=== PATIENT | male | born 1975 | race Asian ===

== ENCOUNTER 2016-08-28 13:15 | Inpatient (IN) | payer OTHER ==
[~2016-08-28] VITALS: Ht 180.3 cm; Wt 115.8 kg
[2016-08-28] VITALS (7 sets, daily range): BP systolic 89–105; BP diastolic 33–77; PULSE 86–112; TEMP 36.9–37.4; O2SAT 91–93; Ht 180.3 cm; Wt 115.8 kg
[~2016-08-28 13:15] MED LIST: BTP80 PO; FRS/40 PO; LSN5 PO; MAGN400T6 PO; POTA10CA28 PO; SPIR25TA PO; TPRSR25 PO; XRL20 PO
[2016-08-28] MEDS ORDERED: METOPROLOL TARTRATE 1 MG/ML VIAL IV STA ×4 (13:41→16:07)
--- NOTE | 2016-08-28 13:44 | EMERGENCY ROOM VISIT NOTE ---
History Report prepared by Andrea: Pura Hameed Under the Supervision of: Dr. Jackie Potter M.D. First contact with patient: 13:36 Chief Complaint: RESPIRATORY PROBLEMS Stated Complaint: TROUBLE BREATHING, CHEST PAIN History of Present Illness The patient is a 41 year old male who presents to the Emergency Room with complaints of constant shortness of breath beginning this morning. The patient states that he has been experiencing trouble breathing and a cough with sputum. He states that it is very hard to catch his breath. The patient is also experiencing chest discomfort. He notes a headache in his rastafari areas and states that this has occurred before when he had heart troubles. The patient has a history of atrial fibrillation and CHF. He notes that his EF is between 20 -30. The patient does not wear oxygen at home. He is followed by cardiology for his ongoing cardiac issues. The patient states that he took all his medications today at noon. He denies kidney failure history, diabetes, fever, or recent head injury. Source of History: patient Onset: this morning Position: other (global) Quality: other (shortness of breath) Timing: constant Associated Symptoms: + chest pain, + cough, + headache, No fevers Review of Systems See HPI for pertinent positives & negatives. A total of 10 systems reviewed and were otherwise negative. Past Medical & Surgical Medical Problems: (1) Acute viral myocarditis (2) Atrial fibrillation (3) Atrial fibrillation with RVR (4) Cardiomegaly (5) CHF (congestive heart failure) (6) Psoriasis Surgical Problems: (1) S/P ACL repair Family History Heart disease Social History Smoking Status: Never Smoker Alcohol Use: occasionally Drug Use: none Housing Status: lives with family Occupation Status: disabled Current/Historical Medications Scheduled Allopurinol (Zyloprim), 100 MG PO DAILY Folic Acid (Folvite), 1 MG PO DAILY Furosemide (Lasix), 40 MG PO DAILY Lisinopril (Lisinopril), 5 MG PO QAM Magnesium Oxide (Mag-Ox), 400 MG PO DAILY Methotrexate (Methotrexate), 1 DOSE PO WK Metoprolol Succinate (Metoprolol Succinate ER), 12.5 MG PO QAM Potassium Chloride (Micro-K Ext Rel), 10 MEQ PO BID Rivaroxaban (Xarelto), 20 MG PO DAILY Sotalol HCl (Sotalol HCl), 120 MG PO [id number] Spironolactone (Aldactone), 25 MG PO DAILY Allergies Coded Allergies: Penicillins (Verified Allergy, Unknown, 08/28/16) Physical Exam Vital Signs Date Time Temp Pulse Resp B/P Pulse Ox O2 Delivery O2 Flow Rate FiO2 08/28/16 16:20 108 101/79 08/28/16 15:59 108 28 101/79 91 Nasal Cannula 2.0 08/28/16 15:54 48 23 92 08/28/16 15:50 101/66 08/28/16 15:49 138 23 91 Nasal Cannula 2.0 08/28/16 15:44 190 23 91 08/28/16 15:39 125 21 59/41 90 08/28/16 15:35 119 100/85 08/28/16 15:35 100/85 08/28/16 15:34 206 26 92 08/28/16 15:29 104 28 101/77 91 08/28/16 15:26 132 115/80 08/28/16 15:25 115/80 08/28/16 15:24 193 29 92 08/28/16 15:24 130 25 115/80 92 Nasal Cannula 2.0 08/28/16 15:20 110/85 08/28/16 15:19 86 28 92 08/28/16 15:14 133 24 08/28/16 15:10 93 Nasal Cannula 2.0 08/28/16 15:10 136/81 08/28/16 15:09 93 Nasal Cannula 2.0 08/28/16 15:09 54 29 89 08/28/16 15:04 141 22 08/28/16 14:59 85 22 115/86 93 Nasal Cannula 2.0 08/28/16 14:54 170 27 91 08/28/16 14:49 69 31 91 08/28/16 14:48 104/67 08/28/16 14:44 73 17 92 08/28/16 14:39 66 30 109/91 89 08/28/16 14:34 105 18 91 08/28/16 14:29 111/83 08/28/16 14:27 128 22 08/28/16 14:22 128 105/78 94 Nasal Cannula 2.0 08/28/16 14:22 138 133/74 08/28/16 14:20 130 26 90 08/28/16 14:15 75 34 91 08/28/16 14:10 75 15 91 08/28/16 14:05 140 18 08/28/16 14:00 140 26 08/28/16 13:55 200 24 93 08/28/16 13:50 76 33 90 08/28/16 13:45 93 22 89 08/28/16 13:43 138 08/28/16 13:17 37.1 122 19 133/74 90 Room Air Physical Exam Vital signs reviewed. General: Chronically ill appearing, obese, in no significant distress. HEENT: No scleral icterus, PERRLA, neck supple. Atraumatic. Cardiovascular: Rapid irregular rate and rhythm, no extra sounds. Pulmonary: Crackles bilaterally. Increased WOB Abdomen: Soft, nontender, nondistended, positive bowel sounds. Musculoskeletal: Atraumatic, no peripheral edema. Neurologic: Patient awake alert and oriented x 3, full strength in all 4 extremities. Cranial nerves 2 through 12 grossly intact. Skin: Dusky lips. Patchy areas of scaling consistent with psoriasis to back, upper chest, bilateral arms. No significant edema. Medical Decision & Procedures ER Provider Diagnostic Interpretation: X-ray results as stated below per interpretation by me and the radiologist: CHEST ONE VIEW PORTABLE CLINICAL HISTORY: CHF dyspnea COMPARISON STUDY: 05/20/2016 FINDINGS: Cardiomegaly. Unipolar implantable cardiac pacemaker/fibrillator. Components of early congestive failure. IMPRESSION: Developing congestive heart failure Electronically signed by: Kory Escobedo M.D. 08/28/2016 2:05 PM Dictated Date/Time: 08/28/2016 2:05 PM Laboratory Results 08/28/16 13:38 Red Blood Count 4.78, Mean Corpuscular Volume 86.6, Mean Corpuscular Hemoglobin 29.9, Mean Corpuscular Hemoglobin Concent 34.5, Mean Platelet Volume 9.9, Neutrophils (%) (Auto) 81.2, Lymphocytes (%) (Auto) 10.6, Monocytes (%) (Auto) 7.2, Eosinophils (%) (Auto) 0.4, Basophils (%) (Auto) 0.2, Neutrophils # (Auto) 13.23, Lymphocytes # (Auto) 1.73, Monocytes # (Auto) 1.18, Eosinophils # (Auto) 0.07, Basophils # (Auto) 0.03 08/28/16 13:38 Test 08/28/16 13:38 08/28/16 13:45 White Blood Count 16.30 K/uL (4.8-10.8) Red Blood Count 4.78 M/uL (4.7-6.1) Hemoglobin 14.3 g/dL (14.0-18.0) Hematocrit 41.4 % (42-52) Mean Corpuscular Volume 86.6 fL (80-100) Mean Corpuscular Hemoglobin 29.9 pg (25-34) Mean Corpuscular Hemoglobin Concent 34.5 g/dl (32-36) Platelet Count 273 K/uL (130-400) Mean Platelet Volume 9.9 fL (7.4-10.4) Neutrophils (%) (Auto) 81.2 % Lymphocytes (%) (Auto) 10.6 % Monocytes (%) (Auto) 7.2 % Eosinophils (%) (Auto) 0.4 % Basophils (%) (Auto) 0.2 % Neutrophils # (Auto) 13.23 K/uL (1.4-6.5) Lymphocytes # (Auto) 1.73 K/uL (1.2-3.4) Monocytes # (Auto) 1.18 K/uL (0.11-0.59) Eosinophils # (Auto) 0.07 K/uL (0-0.5) Basophils # (Auto) 0.03 K/uL (0-0.2) RDW Standard Deviation 45.3 fL (36.4-46.3) RDW Coefficient of Variation 14.8 % (11.5-14.5) Immature Granulocyte % (Auto) 0.4 % Immature Granulocyte # (Auto) 0.06 K/uL (0.00-0.02) Prothrombin Time 13.0 SECONDS (9.0-12.0) Prothromb Time International Ratio 1.2 (0.9-1.1) Activated Partial Thromboplast Time 33.3 SECONDS (21.0-31.0) Partial Thromboplastin Ratio 1.3 Anion Gap 14.0 mmol/L (3-11) Est Creatinine Clear Calc Drug Dose 114.8 ml/min Estimated GFR () 95.5 Estimated GFR (Non- 82.4 BUN/Creatinine Ratio 15.0 (10-20) Calcium Level 9.1 mg/dl (8.5-10.1) Magnesium Level 2.2 mg/dl (1.8-2.4) Total Bilirubin 1.4 mg/dl (0.2-1) Direct Bilirubin 0.2 mg/dl (0-0.2) Aspartate Amino Transf (AST/SGOT) 43 U/L (15-37) Alanine Aminotransferase (ALT/SGPT) 52 U/L (12-78) Alkaline Phosphatase 92 U/L (45-117) Total Creatine Kinase 93 U/L (39-308) Creatine Kinase MB 0.9 ng/ml (0.5-3.6) Creatine Kinase MB Ratio 1.0 (0-3.0) Total Protein 7.8 gm/dl (6.4-8.2) Albumin 3.9 gm/dl (3.4-5.0) Bedside Troponin I 0.020 ng/ml (0-0.045) BF-Gni-M-Type Natriuretic Peptide 4818 pg/ml (0-450) Laboratory results per my review. Medications Administered Medications (Trade) Dose Ordered Sig/Hector Route Start Time Stop Time Status Last Admin Dose Admin Metoprolol Tartrate (Lopressor Iv) 5 mg NOW STAT IV 08/28/16 13:41 08/28/16 13:42 DC 08/28/16 14:22 5 MG Furosemide (Lasix Inj) 20 mg NOW STAT IV 08/28/16 15:18 08/28/16 15:19 DC 08/28/16 15:26 20 MG Metoprolol Tartrate (Lopressor Iv) 5 mg NOW STAT IV 08/28/16 15:23 08/28/16 15:24 DC 08/28/16 15:26 5 MG Metoprolol Tartrate (Lopressor Iv) 5 mg NOW STAT IV 08/28/16 16:07 08/28/16 16:08 DC 08/28/16 16:20 5 MG ECG Indication: SOB/dyspnea Rate (beats per minute): 149 Rhythm: atrial fibrillation (with RVR) Findings: nonspecific-ST abn, other (aberrantor complex, QTC 497) ED Course 1340: Past medical records reviewed. The patient was evaluated in room C10. A complete history and physical examination was performed. 1341: Lopressor IV 5 mg IV. 1518: Lasix Inj 20 mg IV. 1523: Lopressor IV 5 mg IV. 1612: I reviewed the patient's case with Dr. Kenyatta HOLLAND. He will evaluate the patient for further management. Medical Decision The patient is a 41 year old male who presents to the ED with complaints of shortness of breath. Differentials include infections, reactive airway disease , pneumonia, pneumothorax, COPD, CHF, cardiac ischemia, pulmonary embolism, musculoskeletal, gastrointestinal, as well as others were entertained. This patient was evaluated and appeared to be in no significant distress. IV access was obtained and laboratory work was drawn. Patient was medicated with IV Lopressor to control heart rate. He was given IV Lasix 20 mg for CHF. Chest x-ray confirms pulmonary vascular congestion. Cardiac enzymes are negative. Patient was informed of findings. His atrial fibrillation was reasonably controlled after the above intervention. Patient's breathing had improved. He'll be evaluated by the hospitalist service for further management. He is aware of the plan and agrees. Consults Time Called: 161 Consulting Physician: Dr. Kenyatta HOLLAND Returned Call: [phone] I reviewed the patient's case with Dr. Kenyatta HOLLAND. He will evaluate the patient for further management. Impression Primary Impression: Rapid atrial fibrillation Additional Impression: CHF (congestive heart failure) Critical Care I have personally spent greater than 35 minutes of critical care time in the direct management of this patient. This includes bedside care, interpretation of diagnostic studies, and testing, discussion with consultants, patient, and family members, and other required patient management activities. This 35 minutes is in excess of all separately billable procedures. Scribe Attestation The scribe's documentation has been prepared under my direction and personally reviewed by me in its entirety. I confirm that the note above accurately reflects all work, treatment, procedures, and medical decision making performed by me. Departure Information Dispostion Being Evaluated By Hospitalist Referrals Isrrael Mahmood M.D. (PCP) Problem Qualifiers Additional Impression: CHF (congestive heart failure) Congestive heart failure type: unspecified congestive heart failure type Congestive heart failure chronicity: acute on chronic Qualified Codes: I50.9 - Heart failure, unspecified
[2016-08-28 13:48] LABS: BASO % 0.2 %; BASO ABS # 0.03 K/uL (0-0.2); COMPLETE YES; EOS % 0.4 %; HEMATOCRIT 41.4 % (42-52); IG% 0.4 %; LYMPH % 10.6 %; LYMPH ABS # 1.73 K/uL (1.2-3.4); MEAN CELL VOLUME 86.6 fL (80-100); MEAN CORPUSCULAR HEMOGLOBIN 29.9 pg (25-34); MEAN CORPUSCULAR HGB CONC 34.5 g/dl (32-36); MEAN PLATELET VOLUME 9.9 fL (7.4-10.4); MONO % 7.2 %; NEUT % 81.2 %; PLATELET COUNT 273 K/uL (130-400); RED BLOOD COUNT 4.78 M/uL (4.7-6.1)
[2016-08-28 14:00] LABS: INR 1.2 (0.9-1.1); PARTIAL THROMBOPLASTIN RATIO 1.3
[2016-08-28 14:03] LABS: POINT OF CARE TROPONIN I 0.02 ng/ml (0-0.045)
--- NOTE | 2016-08-28 14:06 | DIAGNOSTIC IMAGING REPORT ---
CHEST ONE VIEW PORTABLE CLINICAL HISTORY: CHF dyspnea COMPARISON STUDY: 05/20/2016 FINDINGS: Cardiomegaly. Unipolar implantable cardiac pacemaker/fibrillator. Components of early congestive failure. IMPRESSION: Developing congestive heart failure Electronically signed by: Kory Escobedo M.D. 08/28/2016 2:05 PM Dictated Date/Time: 08/28/2016 2:05 PM
[2016-08-28 14:09] LABS: CALCIUM 9.1 mg/dl (8.5-10.1); CREATININE 1.1 mg/dl (0.60-1.40); MAGNESIUM 2.2 mg/dl (1.8-2.4); POTASSIUM 3.8 mmol/L (3.5-5.1)
[2016-08-28] MEDS ORDERED: METOPROLOL TARTRATE 1 MG/ML VIAL ONE ×2 (14:17→15:21)
[2016-08-28] MEDS ORDERED: MTH25 PO (14:49)
[2016-08-28] MEDS ORDERED: ALLO100T PO (14:49)
[2016-08-28] MEDS ORDERED: FOLI1TAB7 PO (14:49)
[2016-08-28] MEDS ORDERED: FUROSEMIDE 40 MG/4 ML VIAL IV STA (15:18)
[2016-08-28] MEDS ORDERED: DILTIAZEM BOLUS / DRIP IV STA (15:53)
[2016-08-28] MEDS ORDERED: ONDANSETRON INJ 2 MG/ML 2 ML VIAL IV PRN (16:00)
[2016-08-28] MEDS ORDERED: ACETAMINOPHEN 325 MG TAB PO PRN (16:00)
--- NOTE | 2016-08-28 16:29 | History and Physical ---
History & Physical Date & Time of Service: Aug 28, 2016 at 16:15 Chief Complaint: Trouble Breathing, Chest Pain Primary Care Physician: Isrrael Mahmood M.D. History of Present Illness Source: patient, family, clinic records, hospital records This patient is a pleasant 41-year-old male presents emergency department complaining of dyspnea on exertion and orthopnea that has gotten progressively worse since yesterday. He is also felt heart palpitations. He feels like his heart is racing. He has also had a mild productive cough with white sputum since last night. He denies any swelling in his legs. Patient has a history of idiopathic dilated cardiomyopathy with an ejection fraction between 20 and 30 %. He also has a history of atrial fibrillation status post pacemaker placement that was replaced this year. He underwent an unsuccessful cardioversion last year. He denies any recent changes in medications. No fever or chills. EKG in the emergency department shows A. fib with RVR. Chest x-ray appears to be developing CHF. He was given 4 doses of metoprolol 5 mg IV with minimal response and heart rate. Past Medical/Surgical History Medical Problems: Atrial fibrillation Idiopathic dilated cardiomyopathy EF 20-30% Obstructive sleep apnea Gout Psoriasis Status post pacemaker placement Surgical Problems: (1) S/P ACL repair Status: Resolved Family History Unknown as the patient is adopted Social History Smoking Status: Never Smoker Alcohol Use: socially Drug Use: none Housing status: lives with family Occupational Status: disabled Immunizations History of Influenza Vaccine: No History of Tetanus Vaccine?: YES, WITHIN PAST 10 YEARS History of Pneumococcal: No History of Hepatitis B Vaccine: No Allergies Coded Allergies: Penicillins (Verified Allergy, Unknown, 08/28/16) Home Medications Scheduled Allopurinol (Zyloprim), 100 MG PO DAILY Folic Acid (Folvite), 1 MG PO DAILY Furosemide (Lasix), 40 MG PO DAILY Lisinopril (Lisinopril), 5 MG PO QAM Magnesium Oxide (Mag-Ox), 400 MG PO DAILY Methotrexate (Methotrexate), 1 DOSE PO WK Metoprolol Succinate (Metoprolol Succinate ER), 12.5 MG PO QAM Potassium Chloride (Micro-K Ext Rel), 10 MEQ PO BID Rivaroxaban (Xarelto), 20 MG PO DAILY Sotalol HCl (Sotalol HCl), 120 MG PO [id number] Spironolactone (Aldactone), 25 MG PO DAILY Review of Systems 10 system review performed and negative unless noted in HPI or below Physical Exam Vital Signs Date Time Temp Pulse Resp B/P Pulse Ox O2 Delivery O2 Flow Rate FiO2 08/28/16 15:59 108 28 101/79 91 Nasal Cannula 2.0 08/28/16 15:54 48 23 92 08/28/16 15:50 101/66 08/28/16 15:49 138 23 91 Nasal Cannula 2.0 08/28/16 15:44 190 23 91 08/28/16 15:39 125 21 59/41 90 08/28/16 15:35 119 100/85 08/28/16 15:35 100/85 08/28/16 15:34 206 26 92 08/28/16 15:29 104 28 101/77 91 08/28/16 15:26 132 115/80 08/28/16 15:25 115/80 08/28/16 15:24 193 29 92 08/28/16 15:24 130 25 115/80 92 Nasal Cannula 2.0 08/28/16 15:20 110/85 08/28/16 15:19 86 28 92 08/28/16 15:14 133 24 08/28/16 15:10 93 Nasal Cannula 2.0 08/28/16 15:10 136/81 08/28/16 15:09 93 Nasal Cannula 2.0 08/28/16 15:09 54 29 89 08/28/16 15:04 141 22 08/28/16 14:59 85 22 115/86 93 Nasal Cannula 2.0 08/28/16 14:54 170 27 91 08/28/16 14:49 69 31 91 08/28/16 14:48 104/67 08/28/16 14:44 73 17 92 08/28/16 14:39 66 30 109/91 89 08/28/16 14:34 105 18 91 08/28/16 14:29 111/83 08/28/16 14:27 128 22 08/28/16 14:22 128 105/78 94 Nasal Cannula 2.0 08/28/16 14:22 138 133/74 08/28/16 14:20 130 26 90 08/28/16 14:15 75 34 91 08/28/16 14:10 75 15 91 08/28/16 14:05 140 18 08/28/16 14:00 140 26 08/28/16 13:55 200 24 93 08/28/16 13:50 76 33 90 08/28/16 13:45 93 22 89 08/28/16 13:43 138 08/28/16 13:17 37.1 122 19 133/74 90 Room Air General Appearance: + mild distress (mild respiratory distress) Head: normocephalic Eyes: EOMI Neck: no JVD Respiratory/Chest: + pertinent finding (crackles at the bases bilaterally. Tachypnea noted) Cardiovascular: + irregularly irregular Abdomen/GI: normal bowel sounds, non tender, soft Extremities/Musculoskelatal: no calf tenderness, no pedal edema Neurologic/Psych: no motor/sensory deficits, oriented x 3 Skin: warm/dry Diagnostics Laboratory Results Results Past 24 Hours Test 08/28/16 13:38 08/28/16 13:45 Range/Units White Blood Count 16.30 4.8-10.8 K/uL Red Blood Count 4.78 4.7-6.1 M/uL Hemoglobin 14.3 14.0-18.0 g/dL Hematocrit 41.4 42-52 % Mean Corpuscular Volume 86.6 80-100 fL Mean Corpuscular Hemoglobin 29.9 25-34 pg Mean Corpuscular Hemoglobin Concent 34.5 32-36 g/dl Platelet Count 273 130-400 K/uL Mean Platelet Volume 9.9 7.4-10.4 fL Neutrophils (%) (Auto) 81.2 % Lymphocytes (%) (Auto) 10.6 % Monocytes (%) (Auto) 7.2 % Eosinophils (%) (Auto) 0.4 % Basophils (%) (Auto) 0.2 % Neutrophils # (Auto) 13.23 1.4-6.5 K/uL Lymphocytes # (Auto) 1.73 1.2-3.4 K/uL Monocytes # (Auto) 1.18 0.11-0.59 K/uL Eosinophils # (Auto) 0.07 0-0.5 K/uL Basophils # (Auto) 0.03 0-0.2 K/uL RDW Standard Deviation 45.3 36.4-46.3 fL RDW Coefficient of Variation 14.8 11.5-14.5 % Immature Granulocyte % (Auto) 0.4 % Immature Granulocyte # (Auto) 0.06 0.00-0.02 K/uL Prothrombin Time 13.0 9.0-12.0 SECONDS Prothromb Time International Ratio 1.2 0.9-1.1 Activated Partial Thromboplast Time 33.3 21.0-31.0 SECONDS Partial Thromboplastin Ratio 1.3 Sodium Level 136 136-145 mmol/L Potassium Level 3.8 3.5-5.1 mmol/L Chloride Level 101 98-107 mmol/L Carbon Dioxide Level 21 21-32 mmol/L Anion Gap 14.0 3-11 mmol/L Blood Urea Nitrogen 17 7-18 mg/dl Creatinine 1.10 0.60-1.40 mg/dl Est Creatinine Clear Calc Drug Dose 114.8 ml/min Estimated GFR () 95.5 Estimated GFR (Non- 82.4 BUN/Creatinine Ratio 15.0 10-20 Random Glucose 142 70-99 mg/dl Calcium Level 9.1 8.5-10.1 mg/dl Magnesium Level 2.2 1.8-2.4 mg/dl Total Bilirubin 1.4 0.2-1 mg/dl Direct Bilirubin 0.2 0-0.2 mg/dl Aspartate Amino Transf (AST/SGOT) 43 15-37 U/L Alanine Aminotransferase (ALT/SGPT) 52 12-78 U/L Alkaline Phosphatase 92 45-117 U/L Total Creatine Kinase 93 39-308 U/L Creatine Kinase MB 0.9 0.5-3.6 ng/ml Creatine Kinase MB Ratio 1.0 0-3.0 Total Protein 7.8 6.4-8.2 gm/dl Albumin 3.9 3.4-5.0 gm/dl Bedside Troponin I 0.020 0-0.045 ng/ml JO-Jtu-L-Type Natriuretic Peptide 4818 0-450 pg/ml Diagnostic Radiology Patient Name: DELFINA FOWLER Unit Number: [id number] Dictated: 08/28/161404 Transcribed: 08/28/161404 MS Printed Date/Time: [~ rep prt dt]/[~ rep prt tm] [~ rep ct labl] - [~ rep ct ivnm] [facility] [place] [place] [address] Dictated: 02/23/17 1405 Transcribed: 08/28/16 1405 MS Printed Date/Time: [~ rep prt dt]/[~ rep prt tm] [~ rep ct labl] - [~ rep ct ivnm] Patient: DELFINA FOWLER Address1: [address] [facility] Rec: [id number] Address2: Acct ID: [id number] [facility] Zip: [place] [address] Date: 1975 Sex: M Room/Bed: Ref Phy: Isrrael Mahmood M.D. SC: RACHNA Att Phy: Report #: [id number] Tamera Phy: Isrrael Mahmood M.D. Test: [id number] Admit Phy: Asian [employer] Program Chair: MELA Interpreting Phy: Kory Escobedo M.D. Diagnosis: TROUBLE BREATHING, CHEST PAIN Ordering Phy: Jackie Potter M.D. Service Date: 08/28/16 Admit Date: 08/28/16 MNE: [id number] CONF: DICTATED BY: Kory Escobedo M.D.]] CC: Jackie Potter M.D. Woolley, Paul O., M.D. Endcc: [~ rep ct add3]] CHEST ONE VIEW PORTABLE CLINICAL HISTORY: CHF dyspnea COMPARISON STUDY: 05/20/2016 FINDINGS: Cardiomegaly. Unipolar implantable cardiac pacemaker/fibrillator. Components of early congestive failure. IMPRESSION: Developing congestive heart failure Electronically signed by: Kory Escobedo M.D. 08/28/2016 2:05 PM Dictated Date/Time: 08/28/2016 2:05 PM The status of this report is Signed. Draft = Not yet reviewed or approved by Radiologist. Signed = Reviewed and approved by Radiologist. <AttendingPhy></AttendingPhy> <FamilyPhy>Isrrael Mahmood M.D.</FamilyPhy> < PrimaryPhy>Isrrael Mahmood M.D.</PrimaryPhy> <UnitNumber>[id number]</UnitNumber > <VisitNumber>[id number]</VisitNumber> <PatientName>DELFINA FOWLER</ PatientName> <DateOfBirth>1975</DateOfBirth> <Location>[facility]</Location> < ServiceDate>08/28/16</ServiceDate> <MNE>ESINDI</MNE> <OrderingPhy>Jackie Potter M.D.</OrderingPhy> <OrderingPhyMNE>f rep ord dr de santiago</OrderingPhyMNE> < DictatingPhyMNE>f rep dict dr de santiago</DictatingPhyMNE> <CCListMNE>f rep ct mne</ CCListMNE> <AdmittingPhyMNE>f pt admit dr de santiago</AdmittingPhyMNE> <AttendingPhyMNE >f pt attend dr de santiago</AttendingPhyMNE> <ConsultingPhyMNE>f pt consult dr de santiago</ConsultingPhyMNE> <FamilyPhyMNE>f pt fam dr de santiago</FamilyPhyMNE> <OtherPhyMNE>f pt other dr de santiago</OtherPhyMNE> < PrimaryPhyMNE>f pt prim care dr de santiago</PrimaryPhyMNE> <ReferringPhyMNE>f pt referring dr de santiago</ReferringPhyMNE> EKG A fib with RVR rate 149 Impression Assessment and Plan 41-year-old male presents emergency department with dyspnea on exertion, orthopnea found to be in A. fib with RVR with associated developing CHF A. fib with RVR-no significant response to metoprolol -Admit to telemetry -Begin cardizem drip -additional dose of lasix 20 mg IV now then Lasix 20 mg IV daily -check echo -cards consult-Dr. Johnson -follow cardiac enzymes every 8 hr x 2 -daily EKG -continue Xarelto 20 mg daily, metoprolol extended release 12.5 mg daily, sotalol 120 mg BID, spironolactone 25 mg daily -Hold lisinopril 5 mg to allow for more room to go up on the Cardizem drip Gout -continue allopurinol 100 mg daily DVT prophylaxis -Xarelto -TEDS, SCDs CODE STATUS -LEVEL I FULL CODE i personally examined pt and verified all aggarwal points w A [facility] PAC when i see pt - rate now ~100, and has been in 80's - notes that SOB at rest basically gone - still w some SWAIN vitals noted, nad, breathing unlabored, afib, CXR w cardiomegaly and pulmonary edema acute on chronic predominantly CHF - likely caused by rate from afib (likely making current exac mixed since rate related CHF would be heavily due to lack of filling time) -control rate (initially tried w beta blockers but failed- had to move to calcium channel som gtt) -lasix -xarelto otherwise as above Level of Care Telemetry Resuscitation Status FULL RESUSCITATION VTE Prophylaxis VTE Risk Assessment Done? Y/N: Yes Risk Level: Low Given or contraindicated: Other Anticoagulation, T.E.D. Stockings, SCD's
[2016-08-28] MEDS ORDERED: DILTIAZEM HCL INJ 125 MG in DEXTROSE 5% 100ML IV PRN (16:30)
[2016-08-28] MEDS ORDERED: DILTIAZEM HCL 5 MG/ML 5 ML VIAL IV SCH (16:30)
[2016-08-28] MEDS ORDERED: FUROSEMIDE INJ 20 MG in SYRINGE 0 ML IV ONE (18:00)
[2016-08-28] MEDS: SOTALOL HCL 80 MG TAB PO SCH ×2 (21:07→21:13)
[2016-08-28] MEDS: POTASSIUM CHLORIDE 10 MEQ TABCR PO SCH (21:07)
[2016-08-29] VITALS (21 sets, daily range): BP systolic 82–115; BP diastolic 43–74; PULSE 68–180; TEMP 36.6–37.5; O2SAT 88–98
[2016-08-29] MEDS ORDERED: DILTIAZEM HCL INJ 125 MG in DEXTROSE 5% 100ML 100 ML IV PRN (04:15)
[2016-08-29 06:22] LABS: BASO % 0.2 %; BASO ABS # 0.03 K/uL (0-0.2); COMPLETE YES; EOS % 0.8 %; IG% 0.3 %; LYMPH % 13.5 %; LYMPH ABS # 2.14 K/uL (1.2-3.4); MEAN CELL VOLUME 87.6 fL (80-100); MEAN CORPUSCULAR HEMOGLOBIN 29.4 pg (25-34); MEAN CORPUSCULAR HGB CONC 33.6 g/dl (32-36); MEAN PLATELET VOLUME 9.7 fL (7.4-10.4); MONO % 8.7 %; NEUT % 76.5 %; PLATELET COUNT 239 K/uL (130-400); RED BLOOD COUNT 4.45 M/uL (4.7-6.1); WHITE BLOOD COUNT 15.91 K/uL (4.8-10.8)
[2016-08-29 06:50] LABS: BLOOD UREA NITROGEN 15 mg/dl (7-18); BUN/CREATININE RATIO 13.4 (10-20); CALCIUM 8.4 mg/dl (8.5-10.1); CARBON DIOXIDE 30 mmol/L (21-32); CHLORIDE 102 mmol/L (98-107); GLUCOSE 127 mg/dl (70-99); MAGNESIUM 2.3 mg/dl (1.8-2.4); POTASSIUM 3.5 mmol/L (3.5-5.1); SODIUM 140 mmol/L (136-145)
[2016-08-29] MEDS ORDERED: PERFLUTREN LIPID MICROSPHERE (DEFINITY) IV ONE (08:01)
--- NOTE | 2016-08-29 08:11 | Clinical Documentation Query ---
SUMMER Frost : CLINICAL DOCUMENTATION QUERY Patient is a 41 year old male admitted with atrial fibrillation with RVR and developing CHF. Documentation includes "acute on chronic predominantly CHF - likely caused by rate from afib (likely making current exac mixed since rate related CHF would be heavily due to lack of filling time)". "Mixed" cannot be assumed by the professional sports management professor to be both systolic and diastolic when neither were ever mentioned in the record. Noted is a history of "Idiopathic dilated cardiomyopathy EF 20-30%" suggesting chronic systolic CHF. Please explicitly clarify as appropriate. Thank you. In your clinical opinion is this patient being managed for: (x ) Acute combined systolic and diastolic superimposed on chronic systolic heart failure ( ) Other explanation of clinical findings (Please Explain) ( ) Unable to determine (Please Define) ( ) Need to Discuss ( ) Not Agree The medical record reflects the following clinical findings, treatment, and risk factors. Clinical Indicators: As above Treatment: Telemetry, IV Lasix, echocardiogram, cardiology consultation, serial cardiac enzymes, serial EKG's Risk Factors: Underlying ischemic cardiomyopathy, rapid atrial fibrillation reducing filling times Please clarify and document your clinical opinion in the progress notes and discharge summary. Terms such as "probable", "suspected", "likely", "questionable", "possible", or "still to be ruled out" are acceptable. IF IN AGREEMENT, YOU MUST DOCUMENT ABOVE DIAGNOSTIC STATEMENT IN DAILY PROGRESS NOTES AND DISCHARGE SUMMARY. This document is not part of the patient's record. Thank You, Terell Alejandra, RN [phone]
--- NOTE | 2016-08-29 08:13 | Clinical Documentation Query ---
AMBER Johnson : CLINICAL DOCUMENTATION QUERY Patient is a 41 year old male admitted with atrial fibrillation with RVR and developing CHF. Documentation includes "acute on chronic predominantly CHF - likely caused by rate from afib (likely making current exac mixed since rate related CHF would be heavily due to lack of filling time)". "Mixed" cannot be assumed by the professional solutions sales executive to be both systolic and diastolic when neither were ever mentioned in the record. Noted is a history of "Idiopathic dilated cardiomyopathy EF 20-30%" suggesting chronic systolic CHF. Please explicitly clarify as appropriate. Thank you. In your clinical opinion is this patient being managed for: ( X ) Acute combined systolic and diastolic superimposed on chronic systolic heart failure ( ) Other explanation of clinical findings (Please Explain) ( ) Unable to determine (Please Define) ( ) Need to Discuss ( ) Not Agree The medical record reflects the following clinical findings, treatment, and risk factors. Clinical Indicators: As above Treatment: Telemetry, IV Lasix, echocardiogram, cardiology consultation, serial cardiac enzymes, serial EKG's Risk Factors: Underlying ischemic cardiomyopathy, rapid atrial fibrillation reducing filling times Please clarify and document your clinical opinion in the progress notes and discharge summary. Terms such as "probable", "suspected", "likely", "questionable", "possible", or "still to be ruled out" are acceptable. IF IN AGREEMENT, YOU MUST DOCUMENT ABOVE DIAGNOSTIC STATEMENT IN DAILY PROGRESS NOTES AND DISCHARGE SUMMARY. This document is not part of the patient's record. Thank You, Terell Alejandra, RN [phone]
[2016-08-29] MEDS ORDERED: AMIODARONE IV BOLUS / DRIP IV STA (08:23)
[2016-08-29] MEDS: SOTALOL HCL 80 MG TAB PO SCH ×2 (08:37→13:19)
[2016-08-29] MEDS: POTASSIUM CHLORIDE 10 MEQ TABCR PO SCH ×2 (08:38→19:33)
[2016-08-29] MEDS: RIVAROXABAN 20 MG TAB PO SCH (08:38)
[2016-08-29] MEDS: MAGNESIUM OXIDE 400 MG TAB PO SCH (08:39)
[2016-08-29] MEDS: ALLOPURINOL 100 MG TAB PO SCH (08:39)
[2016-08-29] MEDS: SPIRONOLACTONE 25 MG TAB PO SCH (08:40)
[2016-08-29] MEDS ORDERED: AMIODARONE / D5W 100 ML IV ONE (08:45)
[2016-08-29] MEDS ORDERED: AMIODARONE / D5W 200 ML IV ONE (08:55)
[2016-08-29] MEDS ORDERED: METOPROLOL SUCC 25MG EXT REL TAB PO SCH (09:00)
[2016-08-29] MEDS ORDERED: FUROSEMIDE INJ 20 MG in SYRINGE 0 ML IV SCH (09:00)
--- NOTE | 2016-08-29 11:12 | Family Medicine Progress Note ---
Progress Note Date of Service Aug 29, 2016. Subjective Pt evaluation today including: conversation w/ patient, physical exam, chart review, lab review, review of studies Pain: No pain reported this morning Voiding: no voiding problems, no incontinence Patient is a 41 year old male with a pmh of idiopathic dilated cardiomyopathy, atrial fibrillation, and plaque psoriasis that presents with shortness of breath and palpitations. Patient still complaining of shortness of breath at bedside and racing heart rate. Denies chest pain, cough, fever, headache, lightheadedness, or changes in vision. Constitutional: No chills, No fever, No sweats Respiratory: + dyspnea on exertion, + shortness of breath, No cough, No sputum, No wheezing Cardiovascular: + edema, + orthopnea, No chest pain Abdomen: No nausea, No pain, No vomiting Musculoskeletal: No joint pain Medications Current Inpatient Medications Medications (Trade) Dose Ordered Sig/Hector Route Start Time Stop Time Status Last Admin Dose Admin Acetaminophen (Tylenol Tab) 650 mg Q4H PRN PO 08/28/16 16:00 09/27/16 15:59 Allopurinol (Zyloprim Tab) 100 mg DAILY PO 08/29/16 09:00 09/28/16 08:59 08/29/16 08:39 100 MG Folic Acid (Folvite Tab) 1 mg DAILY PO 08/29/16 09:00 09/28/16 08:59 08/29/16 08:39 1 MG Magnesium Oxide (Mag-Ox Tab) 400 mg DAILY PO 08/29/16 09:00 09/28/16 08:59 08/29/16 08:39 400 MG Metoprolol Succinate (Toprol Xl Tab) 12.5 mg QAM PO 08/29/16 09:00 09/28/16 08:59 08/29/16 08:40 12.5 MG Potassium Chloride (Klor-Con M10) 10 meq BID PO 08/28/16 21:00 09/27/16 20:59 08/29/16 08:38 10 MEQ Rivaroxaban (Xarelto Tab) 20 mg DAILY PO 08/29/16 09:00 09/28/16 08:59 08/29/16 08:38 20 MG Sotalol HCl (Betapace Tab) 120 mg [id number] PO 08/29/16 07:00 09/28/16 06:59 08/29/16 08:37 120 MG Spironolactone 25 mg 25 mg DAILY PO 08/29/16 09:00 09/28/16 08:59 08/29/16 08:40 25 MG Digoxin/Syringe (Digoxin IV/ Syringe) 10 ml @ 2 mls/min NOW ONCE IV 08/29/16 11:15 08/29/16 11:19 Objective Vital Signs Date Time Temp Pulse Resp B/P Pulse Ox O2 Delivery O2 Flow Rate FiO2 08/29/16 09:15 103 22 112/66 08/29/16 08:26 111 20 98/43 3.0 08/29/16 07:58 36.6 81 18 85/64 91 3.0 08/29/16 07:28 36.9 100 20 93/48 92 Nasal Cannula 3.0 08/29/16 05:32 107/63 08/29/16 05:01 87/56 08/29/16 04:07 90/53 08/29/16 04:00 Nasal Cannula 3.0 08/28/16 23:59 Nasal Cannula 3.0 08/28/16 23:59 109 97/64 92 3.0 08/28/16 23:05 37.4 110 18 89/57 91 Nasal Cannula 3.0 08/28/16 21:12 112 101/77 08/28/16 20:00 93 Nasal Cannula 3.0 08/28/16 19:21 37.3 86 18 105/55 91 Nasal Cannula 2.0 08/28/16 18:28 110 98/33 08/28/16 17:24 36.9 104 19 94/60 93 Nasal Cannula 2.0 08/28/16 17:13 37.1 241 34 112/90 88 08/28/16 17:09 241 34 112/90 88 08/28/16 17:04 173 34 89 08/28/16 16:59 110 32 132/92 91 08/28/16 16:54 188 19 93 08/28/16 16:49 75 27 116/93 91 08/28/16 16:44 153 21 93 08/28/16 16:40 125/83 08/28/16 16:39 127 28 90 08/28/16 16:34 211 28 92 08/28/16 16:30 108/78 08/28/16 16:29 141 32 90 08/28/16 16:24 205 15 93 08/28/16 16:20 108 101/79 08/28/16 16:19 142 29 130/88 90 08/28/16 16:14 157 33 08/28/16 16:09 75 24 115/85 92 08/28/16 16:04 194 30 91 08/28/16 15:59 108 28 101/79 91 Nasal Cannula 2.0 08/28/16 15:54 48 23 92 08/28/16 15:50 101/66 08/28/16 15:49 138 23 91 Nasal Cannula 2.0 08/28/16 15:44 190 23 91 08/28/16 15:39 125 21 59/41 90 08/28/16 15:35 119 100/85 08/28/16 15:35 100/85 08/28/16 15:34 206 26 92 08/28/16 15:29 104 28 101/77 91 08/28/16 15:26 132 115/80 08/28/16 15:25 115/80 08/28/16 15:24 193 29 92 08/28/16 15:24 130 25 115/80 92 Nasal Cannula 2.0 08/28/16 15:20 110/85 08/28/16 15:19 86 28 92 08/28/16 15:14 133 24 08/28/16 15:10 93 Nasal Cannula 2.0 08/28/16 15:10 136/81 08/28/16 15:09 93 Nasal Cannula 2.0 08/28/16 15:09 54 29 89 08/28/16 15:04 141 22 08/28/16 14:59 85 22 115/86 93 Nasal Cannula 2.0 08/28/16 14:54 170 27 91 08/28/16 14:49 69 31 91 08/28/16 14:48 104/67 08/28/16 14:44 73 17 92 08/28/16 14:39 66 30 109/91 89 08/28/16 14:34 105 18 91 08/28/16 14:29 111/83 08/28/16 14:27 128 22 08/28/16 14:22 128 105/78 94 Nasal Cannula 2.0 08/28/16 14:22 138 133/74 08/28/16 14:20 130 26 90 08/28/16 14:15 75 34 91 08/28/16 14:10 75 15 91 08/28/16 14:05 140 18 08/28/16 14:00 140 26 08/28/16 13:55 200 24 93 08/28/16 13:50 76 33 90 08/28/16 13:45 93 22 89 08/28/16 13:43 138 08/28/16 13:17 37.1 122 19 133/74 90 Room Air Physical Exam General Appearance: WD/WN Eyes: normal inspection, sclerae normal Neck: supple, no JVD, no carotid bruits Respiratory/Chest: chest non-tender, + rales Cardiovascular: no murmur, + irregularly irregular Extremities: non-tender, no calf tenderness, + pedal edema 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: alert, oriented x 3 Skin: + pertinent finding (Psoriasis plaques over entirety of body) Laboratory Results Results Past 24 Hours Test 08/28/16 13:38 08/28/16 13:45 08/28/16 21:55 08/29/16 05:08 Range/Units White Blood Count 16.30 15.91 4.8-10.8 K/uL Red Blood Count 4.78 4.45 4.7-6.1 M/uL Hemoglobin 14.3 13.1 14.0-18.0 g/dL Hematocrit 41.4 39.0 42-52 % Mean Corpuscular Volume 86.6 87.6 80-100 fL Mean Corpuscular Hemoglobin 29.9 29.4 25-34 pg Mean Corpuscular Hemoglobin Concent 34.5 33.6 32-36 g/dl Platelet Count 273 239 130-400 K/uL Mean Platelet Volume 9.9 9.7 7.4-10.4 fL Neutrophils (%) (Auto) 81.2 76.5 % Lymphocytes (%) (Auto) 10.6 13.5 % Monocytes (%) (Auto) 7.2 8.7 % Eosinophils (%) (Auto) 0.4 0.8 % Basophils (%) (Auto) 0.2 0.2 % Neutrophils # (Auto) 13.23 12.18 1.4-6.5 K/uL Lymphocytes # (Auto) 1.73 2.14 1.2-3.4 K/uL Monocytes # (Auto) 1.18 1.39 0.11-0.59 K/uL Eosinophils # (Auto) 0.07 0.12 0-0.5 K/uL Basophils # (Auto) 0.03 0.03 0-0.2 K/uL RDW Standard Deviation 45.3 46.6 36.4-46.3 fL RDW Coefficient of Variation 14.8 14.9 11.5-14.5 % Immature Granulocyte % (Auto) 0.4 0.3 % Immature Granulocyte # (Auto) 0.06 0.05 0.00-0.02 K/uL Prothrombin Time 13.0 9.0-12.0 SECONDS Prothromb Time International Ratio 1.2 0.9-1.1 Activated Partial Thromboplast Time 33.3 21.0-31.0 SECONDS Partial Thromboplastin Ratio 1.3 Sodium Level 136 140 136-145 mmol/L Potassium Level 3.8 3.5 3.5-5.1 mmol/L Chloride Level 101 102 98-107 mmol/L Carbon Dioxide Level 21 30 21-32 mmol/L Anion Gap 14.0 8.0 3-11 mmol/L Blood Urea Nitrogen 17 15 7-18 mg/dl Creatinine 1.10 1.10 0.60-1.40 mg/dl Est Creatinine Clear Calc Drug Dose 114.8 113.4 ml/min Estimated GFR () 95.5 95.5 Estimated GFR (Non- 82.4 82.4 BUN/Creatinine Ratio 15.0 13.4 10-20 Random Glucose 142 127 70-99 mg/dl Calcium Level 9.1 8.4 8.5-10.1 mg/dl Magnesium Level 2.2 2.3 1.8-2.4 mg/dl Total Bilirubin 1.4 0.2-1 mg/dl Direct Bilirubin 0.2 0-0.2 mg/dl Aspartate Amino Transf (AST/SGOT) 43 15-37 U/L Alanine Aminotransferase (ALT/SGPT) 52 12-78 U/L Alkaline Phosphatase 92 45-117 U/L Total Creatine Kinase 93 74 60 39-308 U/L Creatine Kinase MB 0.9 < 0.5 < 0.5 0.5-3.6 ng/ml Creatine Kinase MB Ratio 1.0 0-3.0 Total Protein 7.8 6.4-8.2 gm/dl Albumin 3.9 3.4-5.0 gm/dl Bedside Troponin I 0.020 0-0.045 ng/ml XL-Ypk-P-Type Natriuretic Peptide 4818 0-450 pg/ml Troponin I 0.018 0.023 0-0.045 ng/ml Assessment and Plan Patient is a 41 year old male that presents with a 2 day history of palpitations and shortness of breath 1) Atrial Fibrillation - Pacemaker placement earlier this year - Cardizem drip currently at 7.5ml/hr - Sotalol 120mg this morning - Xarelto 20mg daily - Currently in Afib with rate of 100s-110s overnight as per second worker with 1 run of Vtach (12 beats) - Discussed case with Dr. Morris and plan is to Cardiovert patient this afternoon, due to current hypotension - h/o unsuccessful cardioversion this year - Daily EKG - Home Meds: Xarelto 20mg Daily, Metoprolol ER 12.5mg Daily, Sotalol 120mg BID, Spironolactone 25mg daily 2) Idiopathic Dilated Cardiomyopathy - 20mg IV Lasix daily - Echo this morning shows very poor function with EF 15-20% - After Cardioversion may require transfer to [facility] seen for advanced heart failure - Troponins q8h 3) Plaque Psoriasis - Methotrexate 1 dose PO Weekly 4) Gout - Allopurinol 100mg daily 5) Diet - NPO prior to Cardioversion 6) DVT Prophylaxis - Xarelto 20mg daily
[2016-08-29] MEDS ORDERED: DIGOXIN IV 250 MCG in SYRINGE 9 ML IV ONE (11:15)
--- NOTE | 2016-08-29 11:59 | CARDIOLOGY CONSULTATION ---
DATE OF CONSULTATION: 08/29/2016 HISTORY OF PRESENT ILLNESS: Shahid Palomino is a 41-year-old male seen in cardiology consultation per the request of Dr. Thakkar of the [facility] for the evaluation of congestive heart failure and atrial fibrillation with rapid ventricular rate. The patient's primary laborer beam house is Dr. Patricio Johnson who had recently seen the patient as an outpatient 2 weeks ago on 08/15/2016. At that time, the patient had been feeling well. He was tolerating his medications and had no complaints. The patient notes, however, that he has had recent progressive shortness of breath, he believes of 3 days' duration. Yesterday when he woke up, he felt that his heart rate was elevated as well. He presented to the Emergency Department yesterday and was found to have atrial fibrillation with rapid ventricular rate at 149 beats per minute. On his initial vital signs, his blood pressure was stable at 133/74. There was 1 blood pressure of 59/41 but I had actually discussed this with his Emergency Department nurse, and it appears that this was perhaps an erroneous blood pressure reading because he did not require treatment for this. The patient was placed on IV diltiazem. His heart rates since the diltiazem have improved down to the low 100 beat per minute range, but he has also had significant hypotension with systolic blood pressures often in the 100 mmHg range, and overnight last night several of his blood pressure readings were in the 87/56 range. The patient received 20 mg of IV furosemide. At present, the patient is in no acute distress but notes continued feelings of shortness of breath and generalized weakness. He denies any recent lower extremity swelling or increased abdominal girth. He states that he has been adherent to his medications recently. He has not missed any doses of metoprolol, sotalol or Xarelto. PAST MEDICAL HISTORY: 1. Idiopathic dilated nonischemic cardiomyopathy with severe LV systolic dysfunction in the past, initially diagnosed in 2016, with no significant CAD noted on cardiac catheterization at that time. 2. Baseline [place] Heart [employer] class 3 symptoms. 3. Status post single chamber Med[employer] AICD implanted January 2008. 4. Status post ventricular tachycardia with appropriate defibrillator activation October 2013. 5. Paroxysmal atrial fibrillation, controlled with rhythm strategy on sotalol, following synchronized electrical cardioversion November 2015. 6. Inappropriate AICD activation, secondary to atrial fibrillation with rapid ventricular rate in May 2016 after a short lapse in sotalol therapy. 7. Psoriasis, for which the patient is on methotrexate and folic acid. PAST SURGICAL HISTORY: 1. Cardiac catheterization in 2006 as noted above. 2. AICD placement as noted above. 3. Repair of knee ligaments, ACL repair. SOCIAL HISTORY: The patient is single. He is accompanied by his mother at the bedside. He is a nonsmoker. FAMILY HISTORY: Unknown as patient is adopted. ALLERGIES: PENICILLIN. HOME MEDICATIONS: 1. Allopurinol 100 mg by mouth daily. 2. Folic acid 1 mg by mouth daily. 3. Furosemide 40 mg p.o. daily. 4. Lisinopril 5 mg daily. 5. Magnesium oxide 400 mg daily. 6. Methotrexate 1 dose per week. 7. Metoprolol succinate 12.5 mg daily. 8. Potassium chloride 10 mEq b.i.d. 9. Xarelto 20 mg by mouth daily. Most recent dose this morning. 10. Sotalol 120 mg b.i.d. 11. Spironolactone 25 mg by mouth daily. REVIEW OF SYSTEMS: Complete review of systems is reviewed as noted above. He notes no recent infectious symptoms with the exception of having had a cold last month, which he has slowly recovered from. He has not been taking any [id number] cold remedies. All other 10-point review of systems is reviewed and is otherwise negative. PHYSICAL EXAMINATION: VITAL SIGNS: Temperature 36.6, heart rate 110-120, respiratory rate 22, blood pressure 112/66. GENERAL APPEARANCE: Awake and oriented x3, in no acute distress. NECK: No bruits. No cervical lymphadenopathy. CARDIOVASCULAR: Tachycardic. No murmurs. LUNGS: Clear. No rales, rhonchi or wheezing. ABDOMEN: Soft, nontender. EXTREMITIES: No clubbing, cyanosis or edema. NEUROLOGIC: No focal deficits. SKIN: Multiple psoriatic plaques noted, no skin breakdown, no signs of superimposed skin infection. DIAGNOSTIC DATA: EKG performed 08/28/2016 at 1322 revealed atrial fibrillation with rapid ventricular rate at 149 beats per minute. Repeat tracing performed this morning revealed atrial fibrillation 101 beats per minute. Nonspecific ST abnormalities. WBC is 15.9, hemoglobin 13.1, platelet count 239. Sodium 140, potassium 3.5, BUN 15, creatinine 1.1. Serial troponins have been negative. Pro-brain natriuretic peptide 4818 pg/mL. A 2D echocardiogram reviewed today independently revealed severe left ventricular chamber dilatation, severe global left ventricular hypokinesis with ejection fraction in the 15-20% range. The right ventricular systolic function is reduced by tricuspid annular systolic plane excursion. Mild to moderate MR is present. Mild left atrial enlargement is present. No pericardial effusion is noted. FINAL IMPRESSION: A 41-year-old male. 1. Acute decompensation of chronic systolic heart failure, severe left ventricular systolic function, with superimposed atrial fibrillation, rapid ventricular rate, and hypotension. RECOMMENDATIONS: The patient had eaten breakfast this morning. Although his BNP is elevated and his chest x-ray reveals findings consistent with congestive heart failure, he is not volume overloaded on examination. His lungs are clear. He notes no recent weight gain. I think his symptoms are more related to his atrial fibrillation and low cardiac output syndrome. His blood pressures are now on the lower side while on IV diltiazem; however, the diltiazem has helped with his heart rates. At this point, he has received his daily oral medications including metoprolol, sotalol and Xarelto for stroke prophylaxis. I am going to titrate down the IV diltiazem to see if his blood pressure comes up. Further diuretic therapy will be held at the present time. A dose of IV digoxin will be administered for further rate control. The patient has been made n.p.o. and we will plan for semi-emergent direct current cardioversion this afternoon with the assistance of anesthesia. The procedure is going to be performed in the operating room to allow for preparation in case airway support is necessary because he did eat today. I would prefer to try to proceed with cardioversion within 6 hours as this is semi-emergent, given the patient's presenting symptoms. For now, we will continue his sotalol in terms of antiarrhythmic therapy. We will ask [employer] to check his device. KRISTIAN
--- NOTE | 2016-08-29 13:21 | ECHOCARDIOGRAM REPORT ---
*NOTICE TO RECEIVING LIBERTARIAN AGENCY This information is strictly Confidential and protected under [place] law. [place] law prohibits you from making any further disclosure of this information unless further disclosure is expressly permitted by the written consent of the person to whom it pertains or is authorized by law. A general authorization for the release of medical or other information is not sufficient for this purpose. Hospital accepts no responsibility if the information is made available to any other person, INCLUDING THE PATIENT. Interpretation Summary * Name: DELFINA FOWLER Study Date: 08/29/2016 08:40 AM BP: 107/63 mmHg * Patient Location: [facility] HR: 109 * : 1975 (M/d/yyyy) Gender: Male Height: 71 in * Age: 41 yrs Ethnicity: Weight: 262 lb * Ordering Physician: Analisa Hoyos * Referring Physician: Self, Referred * Performed By: Lexi Hoffman RCS * * Reason For Study: A-FIB WITH RVR * BSA: 2.4 m2 * -- Conclusions -- * The left ventricle is severely dilated. * There is severe global hypokinesis of the left ventricle. * The LV Ejection Fraction = 15-20%. * The right ventricle is normal size. * The right ventricular systolic function is reduced as assessed by tricuspid annular plane systolic excursion (TAPSE) (TAPSE <1.6 cm). * Moderate aortic root dilatation. * The left atrium is moderately dilated. Procedure Details * A complete two-dimensional transthoracic echocardiogram was performed (2D, M-mode, Doppler and color flow Doppler). Left Ventricle * The left ventricle is severely dilated. * There is diffuse myocardial thinning. * Left ventricular systolic function is severely reduced. * Ejection Fraction = 15-20%. * There is severe global hypokinesis of the left ventricle. Right Ventricle * The right ventricle is normal size. * The right ventricular systolic function is reduced as assessed by tricuspid annular plane systolic excursion (TAPSE) (TAPSE <1.6 cm). Atria * The left atrium is moderately dilated. * Right atrial size is normal. * There is no evidence of atrial septal defect, but resolution does not allow assessment for a patent foramen ovale. Mitral Valve * The mitral valve is normal. * There is no mitral valve stenosis. * There is moderate mitral regurgitation. Tricuspid Valve * The tricuspid valve is normal. * There is no tricuspid stenosis. * Significant tricuspid regurgitation is absent. * Doppler findings do not suggest pulmonary hypertension. Aortic Valve * The aortic valve is trileaflet. * Aortic stenosis is absent. * There is no significant aortic regurgitation. Pulmonic Valve * The pulmonary valve is not well seen, but the Doppler examination is normal without significant regurgitation or stenosis. Great Vessels * Moderate aortic root dilatation. Pericardium/Pleural * There is no pericardial effusion. Right Ventricle * There is an AICD lead in the right ventricle. Great Vessels * Normal inferior vena cava diameter and respiratory variation suggests normal central venous pressure. Left Ventricular Diastolic Function * The left atrial filling pressure is elevated based on Doppler evaluation. MMode 2D Measurements and Calculations IVSd 1.2 cm IVSs 1.3 cm LVIDd 8.5 cm LVIDs 7.8 cm LVPWd 1.3 cm LVPWs 1.7 cm IVS/LVPW 0.92 FS 7.7 % EDV(Teich) 394.5 ml ESV(Teich) 330.3 ml EF(Teich) 16.3 % EDV(cubed) 614.3 ml ESV(cubed) 483.6 ml EF(cubed) 21.3 % % IVS thick 1.2 % % LVPW thick 28.6 % LV mass(C)d 625.6 grams LV mass(C)dI 264.5 grams/m\S\2 LV mass(C)s 659.2 grams LV mass(C)sI 278.7 grams/m\S\2 SV(Teich) 64.2 ml SI(Teich) 27.1 ml/m\S\2 SV(cubed) 130.7 ml SI(cubed) 55.2 ml/m\S\2 Ao root diam 4.6 cm Ao root area 16.7 cm\S\2 ACS 1.8 cm LA dimension 5.6 cm LA/Ao 1.2 LVOT diam 2.4 cm LVOT area 4.5 cm\S\2 LVAd ap4 76.4 cm\S\2 LVLd ap4 10.7 cm EDV(MOD-sp4) 443.3 ml EDV(sp4-el) 464.3 ml LVAs ap4 63.4 cm\S\2 LVLs ap4 9.8 cm ESV(MOD-sp4) 327.6 ml ESV(sp4-el) 347.3 ml EF(MOD-sp4) 26.1 % EF(sp4-el) 25.2 % LVAd ap2 78.3 cm\S\2 LVLd ap2 11.7 cm EDV(MOD-sp2) 437.9 ml EDV(sp2-el) 443.0 ml LVAs ap2 69.0 cm\S\2 LVLs ap2 10.8 cm ESV(MOD-sp2) 362.5 ml ESV(sp2-el) 372.8 ml EF(MOD-sp2) 17.2 % EF(sp2-el) 15.9 % LVLd %diff 9.1 % EDV(MOD-bp) 441.9 ml LVLs %diff 9.5 % ESV(MOD-bp) 351.8 ml EF(MOD-bp) 20.4 % SV(MOD-sp4) 115.7 ml SI(MOD-sp4) 48.9 ml/m\S\2 SV(MOD-sp2) 75.4 ml SI(MOD-sp2) 31.9 ml/m\S\2 SV(MOD-bp) 90.1 ml SI(MOD-bp) 38.1 ml/m\S\2 SV(sp4-el) 117.0 ml SI(sp4-el) 49.5 ml/m\S\2 SV(sp2-el) 70.2 ml SI(sp2-el) 29.7 ml/m\S\2 Doppler Measurements and Calculations MV E max sunni 129.2 cm/sec MV P1/2t max sunni 151.3 cm/sec MV P1/2t 41.5 msec MVA(P1/2t) 5.3 cm\S\2 MV dec slope 1067.8 cm/sec\S\2 MV dec time 0.21 sec MR max sunni 443.4 cm/sec MR max PG 78.7 mmHg
[2016-08-29] MEDS ORDERED: LIDOCAINE HCL 2% 2 ML VIAL (20MG/ML) ONE ×2 (13:37→14:20)
[2016-08-29] MEDS ORDERED: PROPOFOL IV EMULSION 10 MG/ML 20 ML VIAL IV ONE ×2 (13:37→14:20)
--- NOTE | 2016-08-29 14:15 | Cardiology Procedure Brief Nt ---
Preliminary Cardiology Note Procedure Date Aug 29, 2016. Pre-Procedure Diagnosis Symptomatic atrial fibrillation, CHF Post-Procedure Diagnosis successful conversion to SR Procedure(s) Performed [facility] Credit Counselor Christos Ingram DO Block Chopper Hand(s) not applicable Estimated Blood Loss none Preliminary Findings Pt converted to SR with 1 dose of 200 J biphasic energy. Recommendations Continue current medications, recovery in laborer drying department , then transfer to PCU. AICD interogation reveals appropriate device function, rapid rates started on and correlate with patient's symptoms of shortness of breath. Anesthesia Propofol 70 mg IV, lidocaine 40 mg IV Complication(s) None Disposition PCU
--- NOTE | 2016-08-29 14:48 | CARDIOVERSION ---
DATE OF OPERATION: 08/29/2016 PROCEDURE NOTE PREPROCEDURE DIAGNOSIS: Symptomatic atrial fibrillation, congestive heart failure. POSTPROCEDURE DIAGNOSIS: Successful conversion to sinus rhythm. PROCEDURE PERFORMED: Direct current cardioversion. WILDLAND FIRE FIGHTER: Dr. Scott Ingram D.O. POMOLOGY TEACHER: Not applicable. PROCEDURE: After informed consent was obtained and a time out was performed the patient was sedated with the assistance of Dr. Patton from anesthesia receiving 70 mg of IV propofol and 40 mg of IV lidocaine. The patient subsequently underwent synchronized direct current cardioversion receiving 1 dose of 200 joules of biphasic energy with successful conversion to sinus rhythm. The patient been in atrial fibrillation with rapid ventricular rate of 144 beats per minute and post procedure he was in sinus rhythm at 71 beats per minute. RECOMMENDATIONS: Continue current medications including metoprolol, sotalol, and Xarelto. ACID interrogation performed pre- and post procedure revealed appropriate device function. The patient's rapid ventricular rate started on 08/26/2016 and correlate with the patient's onset of symptoms of shortness of breath. COMPLICATIONS: None. DISPOSITION: Recover in the cardiac catheterization laboratory recovery area and then transfer back to PCU for further care. I attest to the content of the Intraoperative Record and any orders documented therein. Any exceptions are noted below. MTDD
[2016-08-29] MEDS ORDERED: AMIODARONE / D5W 200 ML IV SCH (14:56)
--- NOTE | 2016-08-29 15:10 | Anesthesiology Progress Note ---
Anesthesia Post Op Note Date & Time Aug 29, 2016 at 15:10 Vital Signs Pain Intensity: 0 Vital Signs Past 12 Hours Date Time Temp Pulse Resp B/P Pulse Ox O2 Delivery O2 Flow Rate FiO2 08/29/16 14:57 89 24 93/67 90 Nasal Cannula 4.0 08/29/16 14:35 80 16 102/67 96 Nasal Cannula 4 08/29/16 14:25 82 16 105/69 96 Nasal Cannula 4 08/29/16 14:15 82 16 97/60 96 Nasal Cannula 4 08/29/16 14:15 82 16 97/60 98 Mask 10 08/29/16 14:10 82 16 96/64 98 Mask 10 08/29/16 14:07 82 16 82/69 98 Mask 10 08/29/16 14:05 180 16 92/70 98 Mask 10 08/29/16 14:00 140 16 115/62 98 Mask 10 08/29/16 13:12 68 24 101/65 92 Nasal Cannula 4.0 08/29/16 12:48 88 22 96/61 92 Nasal Cannula 4.0 08/29/16 11:02 107 08/29/16 09:15 103 22 112/66 08/29/16 08:26 111 20 98/43 3.0 08/29/16 07:58 36.6 81 18 85/64 91 3.0 08/29/16 07:28 36.9 100 20 93/48 92 Nasal Cannula 3.0 08/29/16 05:32 107/63 08/29/16 05:01 87/56 08/29/16 04:07 90/53 08/29/16 04:00 Nasal Cannula 3.0 Notes Mental Status: alert / awake / arousable, participated in evaluation Pt Amnestic to Procedure: Yes Nausea / Vomiting: adequately controlled Pain: adequately controlled Airway Patency, RR, SpO2: stable & adequate BP & HR: stable & adequate Hydration State: stable & adequate Anesthetic Complications: no major complications apparent
[2016-08-30 03:15] VITALS: BP 115/78; PULSE 91; TEMP 37.2; O2SAT 95
[2016-08-30] MEDS: POTASSIUM CHLORIDE 10 MEQ TABCR PO SCH (07:26)
[2016-08-30] MEDS: ALLOPURINOL 100 MG TAB PO SCH (07:27)
[2016-08-30] MEDS: MAGNESIUM OXIDE 400 MG TAB PO SCH (07:27)
[2016-08-30] MEDS: SPIRONOLACTONE 25 MG TAB PO SCH (07:27)
[2016-08-30] MEDS: RIVAROXABAN 20 MG TAB PO SCH (07:27)
[2016-08-30] MEDS: SOTALOL HCL 80 MG TAB PO SCH ×2 (07:28→13:54)
[2016-08-30 07:43] LABS: BASO % 0.1 %; BASO ABS # 0.02 K/uL (0-0.2); COMPLETE YES; EOS % 0.8 %; HEMATOCRIT 36.8 % (42-52); IG% 0.4 %; LYMPH % 10.6 %; LYMPH ABS # 1.52 K/uL (1.2-3.4); MEAN CELL VOLUME 87.8 fL (80-100); MEAN CORPUSCULAR HEMOGLOBIN 29.6 pg (25-34); MEAN CORPUSCULAR HGB CONC 33.7 g/dl (32-36); MEAN PLATELET VOLUME 10.1 fL (7.4-10.4); MONO % 11.5 %; NEUT % 76.6 %; PLATELET COUNT 219 K/uL (130-400); RED BLOOD COUNT 4.19 M/uL (4.7-6.1); WHITE BLOOD COUNT 14.37 K/uL (4.8-10.8)
[2016-08-30] MEDS ORDERED: FUROSEMIDE INJ 40 MG in SYRINGE 0 ML IV ONE (07:45)
[2016-08-30 08:17] LABS: BUN/CREATININE RATIO 14.6 (10-20); CALCIUM 8.1 mg/dl (8.5-10.1); CREATININE 0.87 mg/dl (0.60-1.40); MAGNESIUM 2.4 mg/dl (1.8-2.4); POTASSIUM 3.4 mmol/L (3.5-5.1)
--- NOTE | 2016-08-30 08:22 | CARDIOLOGY PROGRESS NOTE ---
DATE: 08/30/2016 TIME: 0730. SUBJECTIVE: The patient is seen and examined at the bedside. Complains of orthopnea during the early evening hours. Respiratory symptoms gradually improved and he was able to sleep the second half of the night. He awakens easily to verbal stimulation. Denies chest discomfort. He remains in sinus rhythm on monitor. No lower extremity edema. He has not received diuretic therapy today. REVIEW OF SYSTEMS: The pertinent positives noted above. Four-system review including cardiovascular, pulmonary, gastroenterology, neurologic systems are otherwise negative. MEDICATIONS: Reviewed the EMR, please see list for details. LABORATORY DATA: Basic metabolic panel and CBC are pending at this time. Telemetry demonstrates sinus rhythm and sinus tachycardia. PHYSICAL EXAMINATION: VITAL SIGNS: Temperature is 37.2 degrees centigrade, pulse 91 beats per minute and regular, respiratory rate is 20 breaths per minute, blood pressure 115/78, SaO2 is 95% on 4 liters. GENERAL: NAD, awake, alert and oriented x3. HEENT: His mucous membranes are moist. No scleral icterus. Conjunctivae are pink. NECK: Supple without JVD or HJR. No carotid bruit. HEART: Regular with a normal S1 and S2. There is a 2/6 holosystolic murmur heard best at left ventricular apex. LUNGS: Demonstrate crackles in the right base. No rhonchi or wheeze. ABDOMEN: Soft, nontender. No rebound or guarding. Normal bowel sounds. EXTREMITIES: Warm and dry without clubbing, cyanosis or edema. Extensive psoriatic plaques are noted. NEUROLOGIC: Demonstrates no focal deficit. FINAL IMPRESSION: 1. A complex 41-year-old patient presents with paroxysmal atrial fibrillation with rapid ventricular response, status post external direct current cardioversion 08/29/2016. He remains in sinus rhythm overnight. 2. Acute decompensated systolic heart failure exacerbated by paroxysmal atrial fibrillation with rapid ventricular response. The patient appears mildly volume overloaded with crackles on examination. 3. Nonischemic cardiomyopathy with severe left ventricular systolic dysfunction. 4. Moderate mitral regurgitation. 5. Chronic anticoagulation with Xarelto. PLAN AND RECOMMENDATIONS: I have ordered 40 mg intravenous Lasix to be given x1 now. Metoprolol succinate will be titrated to 25 mg daily. Repeat a.m. labs are pending. A.m. ECG also pending at this time. We will reassess clinically this afternoon. If the patient appears stable in sinus rhythm and euvolemic, we will consider discharge at that time.
[2016-08-30 08:39] VITALS: BP 107/68; PULSE 89; TEMP 37.2; O2SAT 93
[2016-08-30] MEDS ORDERED: METOPROLOL SUCC 25MG EXT REL TAB PO SCH (09:00)
[2016-08-30 12:22] VITALS: BP 101/69; PULSE 98; TEMP 37.1; O2SAT 95
--- NOTE | 2016-08-30 14:38 | Family Medicine Progress Note ---
Progress Note Date of Service Aug 30, 2016. Subjective Pt evaluation today including: conversation w/ patient, physical exam, chart review, lab review, review of studies Pain: No pain reported today Voiding: no voiding problems, no incontinence Constitutional: No chills, No fever, No sweats Respiratory: No cough, No shortness of breath, No wheezing Cardiovascular: No chest pain, No edema, No palpitations Abdomen: No nausea, No pain, No vomiting Musculoskeletal: No muscle pain Medications Current Inpatient Medications Medications (Trade) Dose Ordered Sig/Hector Route Start Time Stop Time Status Last Admin Dose Admin Acetaminophen (Tylenol Tab) 650 mg Q4H PRN PO 08/28/16 16:00 09/27/16 15:59 Allopurinol (Zyloprim Tab) 100 mg DAILY PO 08/29/16 09:00 09/28/16 08:59 08/30/16 07:27 100 MG Folic Acid (Folvite Tab) 1 mg DAILY PO 08/29/16 09:00 09/28/16 08:59 08/30/16 07:27 1 MG Magnesium Oxide (Mag-Ox Tab) 400 mg DAILY PO 08/29/16 09:00 09/28/16 08:59 08/30/16 07:27 400 MG Potassium Chloride (Klor-Con M10) 10 meq BID PO 08/28/16 21:00 09/27/16 20:59 08/30/16 07:26 10 MEQ Rivaroxaban (Xarelto Tab) 20 mg DAILY PO 08/29/16 09:00 09/28/16 08:59 08/30/16 07:27 20 MG Sotalol HCl (Betapace Tab) 120 mg [id number] PO 08/29/16 07:00 09/28/16 06:59 08/30/16 07:28 120 MG Spironolactone (Aldactone Tab) 25 mg DAILY PO 08/29/16 09:00 09/28/16 08:59 08/30/16 07:27 25 MG Metoprolol Succinate (Toprol Xl Tab) 25 mg QAM PO 08/30/16 09:00 09/29/16 08:59 08/30/16 07:32 25 MG Objective Vital Signs Date Time Temp Pulse Resp B/P Pulse Ox O2 Delivery O2 Flow Rate FiO2 08/30/16 12:22 37.1 98 16 101/69 95 Room Air 08/30/16 12:00 Nasal Cannula 5.0 08/30/16 08:39 37.2 89 20 107/68 93 Nasal Cannula 4.0 08/30/16 08:00 Nasal Cannula 5.0 08/30/16 04:00 Nasal Cannula 5.0 08/30/16 03:15 37.2 91 20 115/78 95 Nasal Cannula 4.0 08/30/16 00:00 Nasal Cannula 5.0 08/29/16 23:37 37.1 104 20 108/70 92 Nasal Cannula 4.0 08/29/16 20:00 Nasal Cannula 5.0 08/29/16 18:53 37.5 92 20 107/69 92 Nasal Cannula 4.0 08/29/16 16:00 Nasal Cannula 5.0 08/29/16 15:52 88 20 103/69 92 Nasal Cannula 5.0 08/29/16 15:37 89 20 112/71 88 Nasal Cannula 4.0 08/29/16 15:14 36.9 88 22 101/74 90 Nasal Cannula 4.0 08/29/16 15:13 88 20 101/74 89 Nasal Cannula 4.0 08/29/16 14:57 89 24 93/67 90 Nasal Cannula 4.0 08/29/16 14:35 80 16 102/67 96 Nasal Cannula 4 Physical Exam General Appearance: WD/WN, no apparent distress Eyes: normal inspection Neck: supple, no carotid bruits Respiratory/Chest: chest non-tender, lungs clear, normal breath sounds Cardiovascular: regular rate, rhythm, no gallop, no murmur, + pertinent finding (1+ pitting edema up to mid tibia) Abdomen: normal bowel sounds, non tender, soft Extremities: non-tender, no calf tenderness 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: alert, normal mood/affect, oriented x 3 Laboratory Results Results Past 24 Hours Test 08/30/16 06:38 Range/Units White Blood Count 14.37 4.8-10.8 K/uL Red Blood Count 4.19 4.7-6.1 M/uL Hemoglobin 12.4 14.0-18.0 g/dL Hematocrit 36.8 42-52 % Mean Corpuscular Volume 87.8 80-100 fL Mean Corpuscular Hemoglobin 29.6 25-34 pg Mean Corpuscular Hemoglobin Concent 33.7 32-36 g/dl Platelet Count 219 130-400 K/uL Mean Platelet Volume 10.1 7.4-10.4 fL Neutrophils (%) (Auto) 76.6 % Lymphocytes (%) (Auto) 10.6 % Monocytes (%) (Auto) 11.5 % Eosinophils (%) (Auto) 0.8 % Basophils (%) (Auto) 0.1 % Neutrophils # (Auto) 11.00 1.4-6.5 K/uL Lymphocytes # (Auto) 1.52 1.2-3.4 K/uL Monocytes # (Auto) 1.65 0.11-0.59 K/uL Eosinophils # (Auto) 0.12 0-0.5 K/uL Basophils # (Auto) 0.02 0-0.2 K/uL RDW Standard Deviation 46.8 36.4-46.3 fL RDW Coefficient of Variation 14.9 11.5-14.5 % Immature Granulocyte % (Auto) 0.4 % Immature Granulocyte # (Auto) 0.06 0.00-0.02 K/uL Sodium Level 136 136-145 mmol/L Potassium Level 3.4 3.5-5.1 mmol/L Chloride Level 100 98-107 mmol/L Carbon Dioxide Level 26 21-32 mmol/L Anion Gap 10.0 3-11 mmol/L Blood Urea Nitrogen 13 7-18 mg/dl Creatinine 0.87 0.60-1.40 mg/dl Est Creatinine Clear Calc Drug Dose 143.1 ml/min Estimated GFR () 123.4 Estimated GFR (Non- 106.5 BUN/Creatinine Ratio 14.6 10-20 Random Glucose 102 70-99 mg/dl Calcium Level 8.1 8.5-10.1 mg/dl Magnesium Level 2.4 1.8-2.4 mg/dl Assessment and Plan Patient is a 41 year old male that presents with a 2 day history of palpitations and shortness of breath. Currently on hospital day #2 1) Atrial Fibrillation - Patient cardioverted back to [facility] by Dr. Ingram yesterday in the OR - Dose of Metoprolol increased to 25mg daily - Pacemaker placement earlier this year - Sotalol 120mg qAM - Xarelto 20mg daily 2) Ventricular Tachycardia - Patient experienced run of VTach this morning - Patient had run of VTach yesterday of 12 beats - Denies any symptoms from the episode 3) Idiopathic Dilated Cardiomyopathy - 40mg IV Lasix today to diurese patient - Already 2L of fluid diuresed as of 11am - Echo shows very poor function with EF 15-20% 4) Plaque Psoriasis - Methotrexate 1 dose PO Weekly 5) Gout - Allopurinol 100mg daily 6) Diet - NPO prior to Cardioversion 7) DVT Prophylaxis - Xarelto 20mg daily
[2016-08-30 14:59] VITALS: BP 106/75; PULSE 91; TEMP 36.9; O2SAT 95
[2016-08-30] MEDS ORDERED: TPRSR25 PO (16:03)
--- NOTE | 2016-08-30 16:07 | Discharge Instructions ---
Discharge Instructions Admission Reason for Admission: Atrial Fibrillation With Rvr Discharge Discharge Diagnosis / Problem: Atrial fibrillation with RVR, acute on chronic systolic heart failure Discharge Goals Goal(s): Decrease discomfort, Improve function, Prevent Disease Progression ( follow up with advanced heart failure at [place]) Activity Recommendations Activity Limitations: resume your previous activity Lifting Limitations: none Exercise/Sports Limitations: as tolerated May Resume Sexual Activity: when tolerated Shower/Bathe: no limitations Driving or Machine Use: no limitations . Instructions / Follow-Up Instructions / Follow-Up Medications: please refer to list - TOPROL: please note that your dose was increased to 25mg from 12.5mg in order to provide better rate control no other changes made at this time FOLLOW UP - [facility] cardiology should call you on Thursday to arrange follow up, if you do not hear from them please call them by Thursday Dr. Ingram discussed setting you up for appointment with advanced heart failure specialists at [place] Call your Primary Care doctor if any of the following symptoms or problems start or get worse: * Shortness of breath or difficulty breathing * Wake up at night short of breath * Chest pain * Cough * Swelling of your hands, feet, or legs * More fatigued or tired with your normal activity * Palpitations - sudden fast heart beats WEIGHT * Weigh yourself every morning after using the bathroom. * Use the same scale. * Wear the same amount of clothing. * Write your weight down on a chart. * Call your Primary Care doctor if you gain more than 2-3 pounds in 1-2 days. MEDICATIONS * Use this discharge instruction sheet for medication instructions. * Take your medications at the time your doctor ordered. * Do not skip a dose of your medicines. * If you miss a dose of medicine, take it as soon as possible, but DO NOT DOUBLE A DOSE. * Read your medicine information when you get home. * Know all of the side effects of your medicine. If in doubt, ask your pharmacist * Call your Primary Care doctor's office if you have any side effects. * Be sure all of your doctors know what medicine and herbs you take (including cold, flu, and herbal medicine). Take the following with you to your follow-up doctor appointments: * Weight Chart * Medication List * List of questions Do not drink excessive alcohol, beer or wine. Current Hospital Diet Patient's current hospital diet: AHA Diet (Heart Healthy) Discharge Diet Recommended Diet: AHA Diet (Heart Healthy) Fluid Restriction: 1500 ml (6 cups) Procedures Procedures Performed: Cardioversion 08/29: successful after one shock with 200J, no complications Echocardiogram: severe left ventricular dysfunction with EF 15-20% Pending Studies Studies pending at discharge: no Laboratory Results Last Resulted CBC 08/30/16 06:38 Red Blood Count 4.19, Mean Corpuscular Volume 87.8, Mean Corpuscular Hemoglobin 29.6, Mean Corpuscular Hemoglobin Concent 33.7, Mean Platelet Volume 10.1, Neutrophils (%) (Auto) 76.6, Lymphocytes (%) (Auto) 10.6, Monocytes (%) (Auto) 11.5, Eosinophils (%) (Auto) 0.8, Basophils (%) (Auto) 0.1, Neutrophils # (Auto ) 11.00, Lymphocytes # (Auto) 1.52, Monocytes # (Auto) 1.65, Eosinophils # (Auto ) 0.12, Basophils # (Auto) 0.02 Last Resulted BMP 08/30/16 06:38 Medical Emergencies . Who to Call and When: Call 911 or go to the Emergency Room if: * If at any time you feel your situation is an emergency * You have tightness or pain in your chest that does not go away with rest or Nitroglycerin * You are very short of breath even with rest . Non-Emergent Contact Non-Emergency issues call your: Application Systems Administrator Call Non-Emergent contact if: you have any medication questions . . "Provider Documentation" section prepared by Renard Thakkar. VTE Core Measure Inpt VTE Proph given/why not?: Other Anticoagulation (Xarelto) [place] Drug Monitoring Program Search Results: no issues identified
--- NOTE | 2016-08-30 16:10 | Discharge Summary ---
Discharge Summary Date of Service Aug 30, 2016. Discharge Summary Admission Date: Aug 28, 2016 at 16:15 Discharge Date: Aug 30, 2016 Discharge Disposition: Home Principal Diagnosis: Atrial Fibrillation Problems/Secondary Diagnoses: (1) CHF (congestive heart failure) Status: Chronic Immunizations: Have You Had Influenza Vaccine: No History of Tetanus Vaccine?: YES, WITHIN PAST 10 YEARS History of Pneumococcal: No History of Hepatitis B Vaccine: No Procedures: Cardioversion Medication Reconciliation New Medications: Metoprolol Succinate (Metoprolol Succinate ER) 25 Mg Tabcr 25 MG PO QAM, #30 TABS 3 Refills Continued Medications: Allopurinol (Zyloprim) 100 Mg Tab 100 MG PO DAILY, TAB Folic Acid (Folvite) 1 Mg Tab 1 MG PO DAILY, TAB Furosemide (Lasix) 40 Mg Tab 40 MG PO DAILY, 0 Refills Lisinopril (Lisinopril) 5 Mg Tab 5 MG PO QAM for 30 Days, #30 TAB 3 Refills Magnesium Oxide (Mag-Ox) 400 Mg Tab 400 MG PO DAILY, 0 Refills Methotrexate (Methotrexate) Unknown Strength Tab 1 DOSE PO WK takes on thursday Potassium Chloride (Micro-K Ext Rel) 10 Meq Capcr 10 MEQ PO BID, 0 Refills TAKE TWICE DAILY AFTER A MEAL. Rivaroxaban (Xarelto) 20 Mg Tab 20 MG PO DAILY for 30 Days, #30 TAB 6 Refills Sotalol HCl (Sotalol HCl) 80 Mg Tab 120 MG PO [id number] for 30 Days, TAB 3 Refills Spironolactone (Aldactone) 25 Mg Tab 25 MG PO DAILY, 0 Refills Discontinued Medications: Metoprolol Succinate (Metoprolol Succinate ER) 25 Mg Tabcr 12.5 MG PO QAM for 30 Days, 3 Refills Discharge Exam Review of Systems: Constitutional: No chills, No fever Respiratory: No cough, No shortness of breath, No wheezing Cardiovascular: No chest pain, No palpitations Abdomen: No nausea, No pain, No vomiting Endocrine: No fatigue Physical Exam: General Appearance: WD/WN, no apparent distress Respiratory/Chest: chest non-tender, lungs clear, normal breath sounds, no respiratory distress, no accessory muscle use Cardiovascular: regular rate, rhythm, no gallop, normal peripheral pulses, + pertinent finding (+1 edema up to mid tibial region) Abdomen / GI: normal bowel sounds, non tender, soft Extremities: normal inspection, no calf tenderness Skin: + pertinent finding (plaque psoriasis lesions covering entire body) Hospital Course Patient is a 41 year old male with a past medical history of idiopathic dilated cardiomyopathy with an EF of 20-30% and Atrial Fibrillation presented to the ED with dyspnea on exertion and orthopnea that got progressively worse over 24 hours. He complained of heart palpitation. EKG in the ED showed Afib with RVR. Got 4 doses of 5mg Metoprolol IV with minimal response to HR. Was admitted to telemetry and started on Cardizem Drip as well as IV Lasix 20mg for worsening heart failure. Due to worsening condition and no response to Atenolol as well as dropping blood pressure with the Cardizem drip, the patient was planned for Cardioversion by Dr. Morris. The patient was successfully converted in the OR. Both yesterday prior to conversion as well as this morning the patient experienced an asymptomatic run of VTach. The patient is currently in NSR and his home dose of Metoprolol has been doubled to 25mg. He received 40mg of IV Lasix today as was diuresed over 2L this morning. Restart home medications and discharge home. Total Time Spent: Greater than 30 minutes This includes examination of the patient, discharge planning, medication reconciliation, and communication with other providers. Discharge Instructions Please refer to the electronic Patient Visit Report (Discharge Instructions) for additional information. Additional Copies To Isrrael Mahmood M.D.
[2016-08-30 16:11] VITALS: BP 106/75; PULSE 91; TEMP 36.9; O2SAT 95
[2016-09-25] MEDS ORDERED: PRED20TA PO (07:00)
[2016-09-25] MEDS ORDERED: LISI10TA PO (07:00)
[2016-09-25] MEDS ORDERED: LNX125 PO (07:00)
[2016-09-25] MEDS ORDERED: FOLI1TAB7 PO (07:00)
[2016-09-25] MEDS ORDERED: METO25TA3 PO (07:00)
[2016-09-25] MEDS ORDERED: AMIO200T4 PO (08:02)
[2016-10-14] MEDS ORDERED: AMIO200T4 PO (07:02)
== END 2016-08-30 16:11 | disposition home or self-care (01) | DRG 308 ==
LOC: ENRESERVDT → ENRESERVTM → C.EDB 13:16 → C.2T 16:15 → EDBEDREQ 16:18 → C.2T 17:24 → UNDOADMIN 17:24
PROVIDERS: ADMIT Family Medicine; ATTEND Internal Medicine
PROC: 5A2204Z Restoration of Cardiac Rhythm, Single (ICD-10-PCS; principal; 2016-08-29 14:00)
DX: I48.0 Paroxysmal atrial fibrillation (principal); I50.41 Acute combined systolic (congestive) and diastolic (congestive) heart failure; I42.0 Dilated cardiomyopathy; I34.0 Nonrheumatic mitral (valve) insufficiency; I47.2 Ventricular tachycardia; L40.0 Psoriasis vulgaris; M10.9 Gout, unspecified; Z79.01 Long term (current) use of anticoagulants; Z95.0 Presence of cardiac pacemaker

== ENCOUNTER 2016-09-11 08:00 | Inpatient (IN) | payer OTHER ==
[~2016-09-11] VITALS: Ht 180.3 cm; Wt 110.4 kg
[2016-09-11] VITALS (9 sets, daily range): BP systolic 86–131; BP diastolic 69–80; PULSE 88–157; TEMP 36.6–36.8; O2SAT 93–98; Ht 180.3 cm; Wt 110.4 kg
[~2016-09-11 08:00] MED LIST changes: +ALLO100T PO; +FOLI1TAB7 PO; +MTH25 PO
[2016-09-11 08:46] LABS: BASO % 0.2 %; BASO ABS # 0.03 K/uL (0-0.2); COMPLETE YES; EOS % 0.3 %; IG% 0.3 %; LYMPH % 15.9 %; MEAN CELL VOLUME 85.8 fL (80-100); MEAN CORPUSCULAR HEMOGLOBIN 29.3 pg (25-34); MEAN CORPUSCULAR HGB CONC 34.1 g/dl (32-36); MEAN PLATELET VOLUME 9.9 fL (7.4-10.4); MONO % 7.6 %; NEUT % 75.7 %; PLATELET COUNT 345 K/uL (130-400); RED BLOOD COUNT 4.78 M/uL (4.7-6.1); WHITE BLOOD COUNT 15.14 K/uL (4.8-10.8)
--- NOTE | 2016-09-11 08:53 | DIAGNOSTIC IMAGING REPORT ---
CHEST ONE VIEW PORTABLE CLINICAL HISTORY: sob dyspnea COMPARISON STUDY: 08/28/2016 FINDINGS: Stable cardiomegaly. Permanent bipolar cardiac pacemaker/defibrillator. Diaphragms are smooth. Mild prominence of pulmonary vasculature. IMPRESSION: Cardiomegaly. Pulmonary vascular congestion Electronically signed by: Kory Escobedo M.D. 09/11/2016 8:52 AM Dictated Date/Time: 09/11/2016 8:51 AM
[2016-09-11 08:54] LABS: CALCIUM 8.5 mg/dl (8.5-10.1); CREATININE 1.2 mg/dl (0.60-1.40); POTASSIUM 4.1 mmol/L (3.5-5.1)
[2016-09-11 09:23] LABS: URINE APPEARANCE CLEAR (CLEAR); URINE BILIRUBIN NEG (NEG); URINE COLOR YELLOW; URINE NITRITE NEG (NEG); URINE PH 5.5 (4.5-7.5); URINE SPECIFIC GRAVITY 1.008 (1.000-1.030); UROBILINOGEN NEG (NEG)
[2016-09-11 09:27] LABS: MANUAL MICROSCOPIC REQUIRED? NO; REVIEW REQ? NO
--- NOTE | 2016-09-11 09:37 | EMERGENCY ROOM VISIT NOTE ---
History Report prepared by Andrea: Ambreen De La Rosa Under the Supervision of: Xiao BuckO. First contact with patient: 08:22 Chief Complaint: RESPIRATORY PROBLEMS Stated Complaint: BREATHING ISSUES Nursing Triage Summary: pt reports was seen here 2 ago has not gotten any better. feels sob is worse. "cant seem to catch breath". vomited x1 last night no nausea now. denies any swelling. has some pain in chest believes from coughing described as soreness History of Present Illness The patient is a 41 year old male who presents to the Emergency Room with complaints of persistent respiratory problems that began three days ago. He currently rates his discomfort as a 4/10 in severity. The patient states that he has a history of atrial fibrillation, noting that two weeks ago he was evaluated in the hospital for similar symptoms. He states that he was cardioverted while evaluated here. The patient states that when he went to his follow up with his [employer] and was found to be in atrial fibrillation again. He states that he takes Sotalol, Metoprolol, and Xarelto for his atrial fibrillation. The patient states that he had been feeling better, but states that three days ago his symptoms worsened. He additionally notes that he has a history of congestive heart failure. The patient states that he takes 40 mg of Lasix daily. He additionally associates constipation, decrease in appetite, vomiting, generalized body aches, abdominal pain, and chills with his symptoms today. The patient denies any recent change in his medications. He denies any fever. The patient states that he has been cardioverted three times in the past and notes that he has previously been on Cardizem. He states that he has had a defibrillator for the past 10 years, noting that it has fired four times in the past. Source of History: patient Onset: three days ago Position: other (global) Symptom Intensity: 4/10 Quality: other (respiratory problems) Timing: other (persistent) Associated Symptoms: + abdominal pain, + chills, + vomiting, No fevers Note: Associated Symptoms: constipation, decrease in appetite, generalized body aches. Review of Systems See HPI for pertinent positives & negatives. A total of 10 systems reviewed and were otherwise negative. Past Medical & Surgical Medical Problems: (1) Acute viral myocarditis (2) Atrial fibrillation (3) Atrial fibrillation with RVR (4) Cardiomegaly (5) CHF (congestive heart failure) (6) Psoriasis Surgical Problems: (1) S/P ACL repair Family History Heart disease Social History Smoking Status: Never Smoker Alcohol Use: occasionally Drug Use: none Housing Status: lives with family Occupation Status: disabled Current/Historical Medications Scheduled Allopurinol (Zyloprim), 100 MG PO DAILY Folic Acid (Folvite), 1 MG PO DAILY Furosemide (Lasix), 40 MG PO DAILY Lisinopril (Lisinopril), 5 MG PO QAM Magnesium Oxide (Mag-Ox), 400 MG PO DAILY Methotrexate (Methotrexate), 1 DOSE PO WK Metoprolol Succinate (Metoprolol Succinate ER), 25 MG PO QAM Potassium Chloride (Micro-K Ext Rel), 10 MEQ PO BID Rivaroxaban (Xarelto), 20 MG PO DAILY Sotalol HCl (Sotalol HCl), 120 MG PO [id number] Spironolactone (Aldactone), 25 MG PO DAILY Allergies Coded Allergies: Penicillins (Verified Allergy, Unknown, 08/28/16) Physical Exam Vital Signs Date Time Temp Pulse Resp B/P Pulse Ox O2 Delivery O2 Flow Rate FiO2 09/11/16 09:35 136 28 108/71 93 Nasal Cannula 2.0 09/11/16 08:44 137 09/11/16 08:38 97 Nasal Cannula 2.0 09/11/16 08:17 96 Room Air 09/11/16 08:14 96 Room Air 09/11/16 08:05 36.3 101 22 86/56 94 Room Air Physical Exam GENERAL: alert, well appearing, well nourished, no distress, non-toxic EYE EXAM: normal conjunctiva, PERRL and EOM's grossly intact OROPHARYNX: no exudate, no erythema, lips, buccal mucosa, and tongue normal and mucous membranes are dry NECK: supple, no nuchal rigidity, no adenopathy, non-tender LUNGS: Coarse breath sounds bilaterally with fine bibasilar rales. Normal chest wall mechanics HEART: Tachycardic rate and irregular rhythm. no murmurs, S1 normal and S2 normal ABDOMEN: Generalized discomfort. abdomen soft, normo-active bowel sounds, no masses, no rebound or guarding. BACK: Back is symmetrical on inspection and there is no deformity, no midline tenderness, no CVA tenderness. SKIN: no rashes and no bruising UPPER EXTREMITIES: upper extremities are grossly normal. LOWER EXTREMITIES: No pitting edema. NEURO EXAM: Normal sensorium, cranial nerves II-XII grossly intact, normal speech, no gross weakness of arms, no gross weakness of legs. Medical Decision & Procedures ER Provider Diagnostic Interpretation: Xray results per the radiologist and my interpretation. Other results have been interpreted by the radiologist and reviewed by me. CHEST ONE VIEW PORTABLE CLINICAL HISTORY: sob dyspnea COMPARISON STUDY: 08/28/2016 FINDINGS: Stable cardiomegaly. Permanent bipolar cardiac pacemaker/defibrillator. Diaphragms are smooth. Mild prominence of pulmonary vasculature. IMPRESSION: Cardiomegaly. Pulmonary vascular congestion Electronically signed by: Kory Escobedo M.D. 09/11/2016 8:52 AM Dictated Date/Time: 09/11/2016 8:51 AM Laboratory Results 09/11/16 08:15 Red Blood Count 4.78, Mean Corpuscular Volume 85.8, Mean Corpuscular Hemoglobin 29.3, Mean Corpuscular Hemoglobin Concent 34.1, Mean Platelet Volume 9.9, Neutrophils (%) (Auto) 75.7, Lymphocytes (%) (Auto) 15.9, Monocytes (%) (Auto) 7.6, Eosinophils (%) (Auto) 0.3, Basophils (%) (Auto) 0.2, Neutrophils # (Auto) 11.48, Lymphocytes # (Auto) 2.40, Monocytes # (Auto) 1.15, Eosinophils # (Auto) 0.04, Basophils # (Auto) 0.03 09/11/16 08:15 Test 09/11/16 08:15 09/11/16 08:40 09/11/16 09:00 White Blood Count 15.14 K/uL (4.8-10.8) Red Blood Count 4.78 M/uL (4.7-6.1) Hemoglobin 14.0 g/dL (14.0-18.0) Hematocrit 41.0 % (42-52) Mean Corpuscular Volume 85.8 fL (80-100) Mean Corpuscular Hemoglobin 29.3 pg (25-34) Mean Corpuscular Hemoglobin Concent 34.1 g/dl (32-36) Platelet Count 345 K/uL (130-400) Mean Platelet Volume 9.9 fL (7.4-10.4) Neutrophils (%) (Auto) 75.7 % Lymphocytes (%) (Auto) 15.9 % Monocytes (%) (Auto) 7.6 % Eosinophils (%) (Auto) 0.3 % Basophils (%) (Auto) 0.2 % Neutrophils # (Auto) 11.48 K/uL (1.4-6.5) Lymphocytes # (Auto) 2.40 K/uL (1.2-3.4) Monocytes # (Auto) 1.15 K/uL (0.11-0.59) Eosinophils # (Auto) 0.04 K/uL (0-0.5) Basophils # (Auto) 0.03 K/uL (0-0.2) RDW Standard Deviation 46.1 fL (36.4-46.3) RDW Coefficient of Variation 15.1 % (11.5-14.5) Immature Granulocyte % (Auto) 0.3 % Immature Granulocyte # (Auto) 0.04 K/uL (0.00-0.02) Anion Gap 12.0 mmol/L (3-11) Est Creatinine Clear Calc Drug Dose 103.0 ml/min Estimated GFR () 85.9 Estimated GFR (Non- 74.1 BUN/Creatinine Ratio 17.0 (10-20) Calcium Level 8.5 mg/dl (8.5-10.1) Total Bilirubin 1.5 mg/dl (0.2-1) Aspartate Amino Transf (AST/SGOT) 50 U/L (15-37) Alanine Aminotransferase (ALT/SGPT) 80 U/L (12-78) Alkaline Phosphatase 93 U/L (45-117) Troponin I 0.018 ng/ml (0-0.045) Pro-B-Type Natriuretic Peptide 7113 pg/ml (0-450) Total Protein 7.1 gm/dl (6.4-8.2) Albumin 3.5 gm/dl (3.4-5.0) Globulin 3.6 gm/dl (2.5-4.0) Albumin/Globulin Ratio 1.0 (0.9-2) Influenza Type A Antigen Neg for Influ A (NEG) Influenza Type B Antigen Neg for Influ B (NEG) Urine Color YELLOW Urine Appearance CLEAR (CLEAR) Urine pH 5.5 (4.5-7.5) Urine Specific [place] 1.008 (1.000-1.030) Urine Protein NEG (NEG) Urine Glucose (UA) NEG (NEG) Urine Ketones NEG (NEG) Urine Occult Blood NEG (NEG) Urine Nitrite NEG (NEG) Urine Bilirubin NEG (NEG) Urine Urobilinogen NEG (NEG) Urine Leukocyte Esterase NEG (NEG) Laboratory results per my review. ECG Indication: SOB/dyspnea Rate (beats per minute): 130 Rhythm: atrial fibrillation Findings: no acute ischemic change, other (normal axis) Comparison ECG Date: Change: EKG Change: When compared to previous EKGs, similar to prior episodes of atrial fibrillation. ED Course 0823: The patient was evaluated in room A3. A complete history and physical examination was performed. 0857: I discussed the patients case with Roseann Goldstein. He said the patient should be evaluated by a hospitalist, he should not receive any more fluids or Lasix and no other anti-arrhythmics should be started. He states that they have a plan for the patient. 0924: Upon reevaluation, the patient's heart rate is in the 120s in atrial fibrillation. He has a blood pressure of 99 systolically. I updated him on the conversation with Roseann Goldstein.I discussed my findings with the patient and he understands and agrees with the treatment plan. Based on the patients age, coexisting illnesses, exam and lab findings the decision to treat as an inpatient was made. The patient remained stable while under my care. The patient will be evaluated for further management. 0925: I discussed the patients case with AMALIA Ghotra. He is going to evaluate the patient for further treatment. Medical Decision The patient is a 41 year old male who presents to the ED with complaints of respiratory problems. Pt with hx of cardiomyopathy, ICD, a.fib and CHF - presenting similar to prior episodes. BP initially low but responded to fluids. Additional fluids without due to history of congestive heart failure. Patient with no active increased work of breathing does not appear in any acute distress. Case discussed with cardiology and admitted to hospitalist. The recommendation. No other interventions initiated in the emergency room per cardiology recommendation. Doubt bacteremia/sepsis, no evidence of effusion or pneumonia. Consults Time Called: 0832 Consulting Physician: Dr. Johnson [facility]iology Returned Call: [phone] I discussed the patients case with Roseann Goldstein. He said the patient should be evaluated by a hospitalist, he should not receive any more fluids or Lasix and no other anti-arrhythmics should be started. He states that they have a plan for the patient. Additional Consults: Time Called: [phone] Consulted Physician: AMALIA Ghotra Returned Call: [phone] Additional Comments: I discussed the patients case with AMALIA Ghotra. He is going to evaluate the patient for further treatment. Impression Primary Impression: Atrial fibrillation with RVR Additional Impressions: CHF (congestive heart failure) Obesity Cardiomyopathy Scribe Attestation The scribe's documentation has been prepared under my direction and personally reviewed by me in its entirety. I confirm that the note above accurately reflects all work, treatment, procedures, and medical decision making performed by me. Departure Information Dispostion Being Evaluated By Hospitalist Referrals Isrrael Mahmood M.D. (PCP) Patient Instructions My [facility] Problem Qualifiers Additional Impressions: CHF (congestive heart failure) Congestive heart failure type: combined Congestive heart failure chronicity: acute on chronic Qualified Codes: I50.43 - Acute on chronic combined systolic (congestive) and diastolic (congestive) heart failure Obesity Obesity type: unspecified obesity type Obesity severity: morbid Qualified Codes: E66.01 - Morbid (severe) obesity due to excess calories Cardiomyopathy Cardiomyopathy type: unspecified Qualified Codes: I42.9 - Cardiomyopathy, unspecified
[2016-09-11] MEDS ORDERED: ALUMINUM/MAGNESIUM/SIMETH (MAALOX MAX) 30 ML UDC PO PRN (10:15)
[2016-09-11] MEDS ORDERED: NITROGLYCERIN 0.4 MG SL PER TAB CHARGE SL PRN (10:15)
[2016-09-11] MEDS ORDERED: ACETAMINOPHEN 325 MG TAB PO PRN (10:15)
[2016-09-11] MEDS ORDERED: POLYETHYLENE (MIRALAX) 17 GM PACK PO PRN (10:15)
[2016-09-11] MEDS ORDERED: ONDANSETRON INJ 2 MG/ML 2 ML VIAL IV PRN (10:15)
[2016-09-11] MEDS ORDERED: MAGNESIUM HYDROXIDE SUSP 30 ML UDC PO PRN (10:15)
[2016-09-11] MEDS ORDERED: FUROSEMIDE 40 MG/4 ML VIAL IV STA (10:46)
--- NOTE | 2016-09-11 10:49 | History and Physical ---
History & Physical Date & Time of Service: Sep 11, 2016 at 10:15 Chief Complaint: Breathing Issues Primary Care Physician: Isrrael Mahmood M.D. History of Present Illness Source: patient, family Patient is a pleasant 41 y/o male, with PMHx of idiopathic dilated cardiomyopathy, CHF, a.fib w/ RVR, NEAL, psoriasis, and gout, who presented to the ED because of severe SOB x3 days. Patient was found to be in a.fib w/ RVR. He does have a history of this. He was seen in the hospital ~2 weeks ago with similar symptoms. At that time, he was cardioverted. Per patient, was successful for 2 days. Symptoms have been ongoing since that time, but have worsened greatly in the last couple of days. Patient take Sotalol, Metoprolol, and Xarelto for a.fib. He took all of his medications this AM. Patient does have a hx idiopathic dilated cardiopathy with EF of 15-20%. He follows closely with Dr. Johnson. Patient is currently in the process for a heart transplant. Dr. Johnson will place further orders for a.fib w/ RVR management. It is possible patient will need transferred to [place]. +SOB. +cough. +palpitations. + abdominal discomfort- patient complains of constipation. Last bowel movement on 09/10, but small. +muscle aches. Patient denies any fever, chills, sweats, lightheadedness, dizziness, vision changes, CP, edema, wheezing, nausea, vomiting, diarrhea, urinary symptoms, melena, numbness/tingling, weakness, anxiety/depression, active bleeding, or new skin discoloration/changes. Past Medical/Surgical History Medical Problems: 1. Dilated cardiomyopathy 2. A.fib 3. CHF 4. Gout 5. Psoriasis 6. NEAL Surgical Problems: 1. s/p ACL repair 2. s/p pacemaker Family History Heart disease Social History Smoking Status: Never Smoker Alcohol Use: socially Drug Use: none Housing status: lives with family Occupational Status: disabled Immunizations History of Influenza Vaccine: No History of Tetanus Vaccine?: YES, WITHIN PAST 10 YEARS History of Pneumococcal: No History of Hepatitis B Vaccine: No Allergies Coded Allergies: Penicillins (Verified Allergy, Unknown, 08/28/16) Home Medications Scheduled Allopurinol (Zyloprim), 100 MG PO DAILY Folic Acid (Folvite), 1 MG PO DAILY Furosemide (Lasix), 40 MG PO DAILY Lisinopril (Lisinopril), 5 MG PO QAM Magnesium Oxide (Mag-Ox), 400 MG PO DAILY Methotrexate (Methotrexate), 1 DOSE PO WK Metoprolol Succinate (Metoprolol Succinate ER), 25 MG PO QAM Potassium Chloride (Micro-K Ext Rel), 10 MEQ PO BID Rivaroxaban (Xarelto), 20 MG PO DAILY Sotalol HCl (Sotalol HCl), 120 MG PO [id number] Spironolactone (Aldactone), 25 MG PO DAILY Physical Exam Vital Signs Date Time Temp Pulse Resp B/P Pulse Ox O2 Delivery O2 Flow Rate FiO2 09/11/16 09:55 93 Nasal Cannula 2.0 09/11/16 09:35 136 28 108/71 93 Nasal Cannula 2.0 09/11/16 08:44 137 09/11/16 08:38 97 Nasal Cannula 2.0 09/11/16 08:17 96 Room Air 09/11/16 08:14 96 Room Air 09/11/16 08:05 36.3 101 22 86/56 94 Room Air General Appearance: + mild distress, + obese Head: normocephalic, atraumatic Eyes: PERRL ENT: hearing grossly normal Neck: supple Respiratory/Chest: no respiratory distress, no accessory muscle use, + crackles (slight, bilateral lung bases ) Cardiovascular: no JVD, + tachycardia, + irregularly irregular Abdomen/GI: normal bowel sounds, soft, + tenderness (diffuse, mild ttp ) Back: normal inspection Extremities/Musculoskelatal: no calf tenderness, no pedal edema Neurologic/Psych: alert, normal mood/affect, oriented x 3 Skin: normal color, warm/dry, + pertinent finding (psorasis noted diffusely ) Diagnostics Laboratory Results Results Past 24 Hours Test 09/11/16 08:15 09/11/16 08:40 09/11/16 09:00 Range/Units White Blood Count 15.14 4.8-10.8 K/uL Red Blood Count 4.78 4.7-6.1 M/uL Hemoglobin 14.0 14.0-18.0 g/dL Hematocrit 41.0 42-52 % Mean Corpuscular Volume 85.8 80-100 fL Mean Corpuscular Hemoglobin 29.3 25-34 pg Mean Corpuscular Hemoglobin Concent 34.1 32-36 g/dl Platelet Count 345 130-400 K/uL Mean Platelet Volume 9.9 7.4-10.4 fL Neutrophils (%) (Auto) 75.7 % Lymphocytes (%) (Auto) 15.9 % Monocytes (%) (Auto) 7.6 % Eosinophils (%) (Auto) 0.3 % Basophils (%) (Auto) 0.2 % Neutrophils # (Auto) 11.48 1.4-6.5 K/uL Lymphocytes # (Auto) 2.40 1.2-3.4 K/uL Monocytes # (Auto) 1.15 0.11-0.59 K/uL Eosinophils # (Auto) 0.04 0-0.5 K/uL Basophils # (Auto) 0.03 0-0.2 K/uL RDW Standard Deviation 46.1 36.4-46.3 fL RDW Coefficient of Variation 15.1 11.5-14.5 % Immature Granulocyte % (Auto) 0.3 % Immature Granulocyte # (Auto) 0.04 0.00-0.02 K/uL Sodium Level 137 136-145 mmol/L Potassium Level 4.1 3.5-5.1 mmol/L Chloride Level 104 98-107 mmol/L Carbon Dioxide Level 21 21-32 mmol/L Anion Gap 12.0 3-11 mmol/L Blood Urea Nitrogen 20 7-18 mg/dl Creatinine 1.20 0.60-1.40 mg/dl Est Creatinine Clear Calc Drug Dose 103.0 ml/min Estimated GFR () 85.9 Estimated GFR (Non- 74.1 BUN/Creatinine Ratio 17.0 10-20 Random Glucose 130 70-99 mg/dl Calcium Level 8.5 8.5-10.1 mg/dl Total Bilirubin 1.5 0.2-1 mg/dl Aspartate Amino Transf (AST/SGOT) 50 15-37 U/L Alanine Aminotransferase (ALT/SGPT) 80 12-78 U/L Alkaline Phosphatase 93 45-117 U/L Troponin I 0.018 0-0.045 ng/ml Pro-B-Type Natriuretic Peptide 7113 0-450 pg/ml Total Protein 7.1 6.4-8.2 gm/dl Albumin 3.5 3.4-5.0 gm/dl Globulin 3.6 2.5-4.0 gm/dl Albumin/Globulin Ratio 1.0 0.9-2 Influenza Type A Antigen Neg for Influ A NEG Influenza Type B Antigen Neg for Influ B NEG Urine Color YELLOW Urine Appearance CLEAR CLEAR Urine pH 5.5 4.5-7.5 Urine Specific [place] 1.008 1.000-1.030 Urine Protein NEG NEG Urine Glucose (UA) NEG NEG Urine Ketones NEG NEG Urine Occult Blood NEG NEG Urine Nitrite NEG NEG Urine Bilirubin NEG NEG Urine Urobilinogen NEG NEG Urine Leukocyte Esterase NEG NEG Diagnostic Radiology CHEST ONE VIEW PORTABLE CLINICAL HISTORY: sob dyspnea COMPARISON STUDY: 08/28/2016 FINDINGS: Stable cardiomegaly. Permanent bipolar cardiac pacemaker/defibrillator. Diaphragms are smooth. Mild prominence of pulmonary vasculature. IMPRESSION: Cardiomegaly. Pulmonary vascular congestion Electronically signed by: Kory Escobedo M.D. 09/11/2016 8:52 AM Dictated Date/Time: 09/11/2016 8:51 AM The status of this report is Signed. Draft = Not yet reviewed or approved by Radiologist. Signed = Reviewed and approved by Radiologist. EKG DELFINA FOWLER ID:[id number] 11-SEP-2016 08:08:56 [facility] Sinus tachycardia with 1st degree A-V block Incomplete left bundle block Nonspecific ST abnormality Abnormal ECG When compared with ECG of 30-AUG-2016 14:11, Premature ventricular complexes are no longer Present MS interval has increased T wave inversion no longer evident in Lateral leads 25mm/s 10mm/mV 150Hz 8.0 SP2 12SL 241 JESSIKA: 13 Referred by: Referred Self Unconfirmed Vent. rate 130 BPM MS interval 264 ms QRS duration 110 ms QT/QTc 348/512 ms P-R-T axes * -16 56 1975 (41 yr) Male 1lb Room:A3 Loc:15 Nutrition Services Worker:ANN MARIE Oconnell ind: Impression Assessment and Plan 41 y/o male, with PMHx of idiopathic dilated cardiomyopathy, CHF, a.fib, NEAL, psoriasis and gout, who presented to the ED because of severe SOB x3 days. A.fib w/ RVR: - [facility] - Trend cardiac enzymes - Patient follows with Dr. Johnson. Consulted- appreciate recommendations -- Spoke with Dr. Johnson, he will place medication/intervention orders--> may need transferred to [place]. Patient in process for heart transplant - Continue Metoprolol 25 mg daily and Xarelto 20 mg daily - Sotalol held per cardiology recommendations - CXR: cardiomegaly, pulmonary vascular congestion - U/A negative - Influenza negative - Follow CBC and PRP Idopathic dilated cardiomyopathy: - Continue Lasix 40 mg daily, Lisinopril 10 mg daily, Mag-Ox 400 mg daily, KCL 10 mEq daily, and Aldactone 25 mg daily - ECHO 08/29/16- The left ventricle is severely dilated. There is severe global hypokinesis of the left ventricle. The LV Ejection Fraction = 15-20%. The right ventricle is normal size. he right ventricular systolic function is reduced as assessed by tricuspid annular plane systolic excursion (TAPSE) (TAPSE <1.6 cm). Moderate aortic root dilatation. The left atrium is moderately dilated. Gout: Continue Allopurinol 100 mg daily Psoriatic arthritis: Methotrexate 2.5 mg, 3 tablets once per week GI Prophylaxis: Maalox PRN, IV Zofran PRN, Colace and/or Milk of Mag PRN DVT prophylaxis: Xarelto, FRANCIS and SCDs Code Status: LEVEL I, FULL Level of Care Telemetry Advanced Directives Existing Living Will: Yes Existing Power of Offset Plate Maker: Yes Resuscitation Status FULL RESUSCITATION VTE Prophylaxis VTE Risk Assessment Done? Y/N: Yes Risk Level: Moderate Given or contraindicated: Other Anticoagulation, T.E.D. Stockings, SCD's
[2016-09-11] MEDS ORDERED: DIGOXIN IV 250 MCG in SYRINGE 9 ML IV ONE ×2 (11:15→12:30)
[2016-09-11] MEDS ORDERED: FUROSEMIDE INJ 40 MG in SYRINGE 0 ML IV ONE (11:15)
[2016-09-11] MEDS ORDERED: MoRPHine SULFATE 2 MG/ML CARP ONE (11:53)
[2016-09-11] MEDS ORDERED: DIGOXIN INJ 500 MCG/2 ML AMP ONE (11:54)
[2016-09-11] MEDS ORDERED: MoRPHine SULFATE 2 MG/ML CARP IV STA (12:01)
--- NOTE | 2016-09-11 12:06 | CARDIOLOGY CONSULTATION ---
DATE OF CONSULTATION: 09/11/2016 INDICATIONS: Atrial fibrillation with rapid ventricular response, decompensated systolic heart failure. HISTORY OF PRESENT ILLNESS: The patient is a complex 41-year-old male with severe nonischemic cardiomyopathy with severe LV dysfunction with class 3+ chronic systolic heart failure. The patient had recent decompensation in rhythm and heart failure issues with hospitalizations and evaluations for atrial fibrillation in May, June, and recently on 08/28/2016. He presented at that time once again with decompensated heart failure and rapid ventricular response. He ultimately underwent synchronized cardioversion on 09/01/2016 but re-presented in outpatient followup on 09/05/2016 with once again having lapsed back into atrial fibrillation. Rate was generally well controlled and metoprolol dosing was increased. He was continued on oral sotalol. Ultimate plans were for outpatient versus inpatient conversion to amiodarone therapy. The patient's clinical status was discussed 2 days ago and noted to be stable, presents now, however, noting worsening shortness of breath and tachycardia this morning with clinical evidence of decompensated systolic heart failure, atrial fibrillation with rapid ventricular response. The patient seen and examined in the ER. He does have a cough and orthopnea complaints, mild increasing edema. Weight is up slightly. Notes no fevers or chills. Notes no headache or visual changes. Notes no bleeding difficulties. He has been appropriately anticoagulated. Appetite has been stable. Overall just feels poorly. REVIEW OF SYSTEMS: Otherwise negative. ALLERGIES: PENICILLIN. MEDICATIONS: Prior to hospitalization were allopurinol 100 mg p.o. daily, folic acid 1 mg p.o. daily, furosemide 40 mg p.o. daily, lisinopril 5 mg p.o. daily, Mag-Ox 400 mg p.o. daily, methotrexate 1 dose weekly, metoprolol succinate 25 mg q.a.m., potassium chloride 10 mEq b.i.d., rivaroxaban 20 mg p.o. daily, sotalol 120 mg b.i.d., spironolactone 25 mg p.o. day. PAST SURGICAL HISTORY: Notable for pacer defibrillator implantation, prior ACL repair. PAST MEDICAL HISTORY: Notable for as described idiopathic dilated cardiomyopathy, severe LV dysfunction, paroxysmal atrial fibrillation, compensated class 3 congestive heart failure, psoriasis. FAMILY HISTORY: The patient is adopted. SOCIAL HISTORY: The patient is a nonsmoker, very rare alcohol user. PHYSICAL EXAMINATION: GENERAL: The patient is an ill-appearing young male. VITAL SIGNS: Heart rate is 130, blood pressure is 104/58, O2 saturations 92% on 2 liters nasal cannula. NECK: Thick. There is jugular venous distention. LUNGS: Reveal scattered crackles, bibasilar. CARDIOVASCULAR: Irregularly irregular with rapid rhythm. There is an apical heave. ABDOMEN: Soft with minimal distention. EXTREMITIES: Without cyanosis or clubbing. There is 1 to 2+ lower extremity edema. SKIN: Cool. LABORATORY DATA: Sodium is 137, potassium is 4.1, chloride is 104, bicarb is 21, BUN is 20, creatinine is 1.2. AST and ALT are elevated mildly BNP is 7113. Troponin 0.018. White cell count is 15.1, hemoglobin is 14.0. Chest x-ray reveals markedly dilated left ventricle, defibrillator in place with appropriate lead placement, increased pulmonary vasculature consistent with congestive heart failure. EKG reveals atrial fibrillation with rapid ventricular response, rate 130, QT corrected at 512. IMPRESSION: Complex male with severe idiopathic dilated cardiomyopathy and marginal compensation of chronic systolic heart failure, presents now with poor tolerance of outpatient management of atrial fibrillation. Rates previously had been controlled on antiarrhythmic therapy, presents today tachycardic and evidence of congestive heart failure. Discussed findings as per prior outpatient visits and recent visit. Ultimate goal will be remove sotalol. The patient did take a dose this morning, will hold dose currently with plans of switching to oral or IV amiodarone depending on clinical course. A dose of digoxin will be given now and more importantly oxygen and IV diuretics. The patient has had gradual decline over the last 3 months with past appropriate and inappropriate defibrillator activation for ventricular tachycardia and atrial fibrillation, both. Overall clinical course has been gradually declining and the patient has not maintained sinus rhythm with current antiarrhythmic therapies. We will switch to amiodarone and we have begun tertiary referral process, transplant evaluation. [facility]
[2016-09-11 13:59] LABS: URINE APPEARANCE CLEAR (CLEAR); URINE BILIRUBIN NEG (NEG); URINE COLOR YELLOW; URINE EPITHELIAL CELL AUTO 0-5 /lpf (0-5); URINE NITRITE NEG (NEG); URINE PH 6.5 (4.5-7.5); URINE SPECIFIC GRAVITY 1.002 (1.000-1.030); UROBILINOGEN NEG (NEG)
[2016-09-11 14:03] LABS: MANUAL MICROSCOPIC REQUIRED? NO; REVIEW REQ? NO
[2016-09-11] MEDS ORDERED: POTASSIUM CHLORIDE 10 MEQ TABCR PO STA (14:20)
[2016-09-11] MEDS ORDERED: DIGOXIN 0.25 MG TAB PO ONE (16:00)
[2016-09-11] MEDS: METOPROLOL SUCC 25MG EXT REL TAB PO SCH (17:09)
[2016-09-11] MEDS ORDERED: FUROSEMIDE INJ 20 MG in SYRINGE 0 ML IV SCH (18:00)
[2016-09-11] MEDS: POTASSIUM CHLORIDE 10 MEQ TABCR PO SCH (21:45)
[2016-09-12] VITALS (13 sets, daily range): BP systolic 86–148; BP diastolic 55–91; PULSE 86–125; TEMP 36.4–37.1; O2SAT 93–97
[2016-09-12 06:00] LABS: HEMATOCRIT 38.9 % (42-52); MEAN CELL VOLUME 88.8 fL (80-100); MEAN CORPUSCULAR HEMOGLOBIN 29.7 pg (25-34); MEAN CORPUSCULAR HGB CONC 33.4 g/dl (32-36); MEAN PLATELET VOLUME 9.9 fL (7.4-10.4); PLATELET COUNT 294 K/uL (130-400); RED BLOOD COUNT 4.38 M/uL (4.7-6.1); WHITE BLOOD COUNT 12.19 K/uL (4.8-10.8)
[2016-09-12 06:34] LABS: BUN/CREATININE RATIO 20.4 (10-20); CALCIUM 8.3 mg/dl (8.5-10.1); CREATININE 0.91 mg/dl (0.60-1.40); MAGNESIUM 2.5 mg/dl (1.8-2.4); POTASSIUM 3.7 mmol/L (3.5-5.1)
[2016-09-12 06:37] LABS: ALB/GLOB RATIO 0.9 (0.9-2)
[2016-09-12] MEDS: MAGNESIUM OXIDE 400 MG TAB PO SCH (07:53)
[2016-09-12] MEDS: POTASSIUM CHLORIDE 10 MEQ TABCR PO SCH ×2 (07:53→20:18)
[2016-09-12] MEDS: ALLOPURINOL 100 MG TAB PO SCH (07:54)
[2016-09-12] MEDS: METOPROLOL SUCC 25MG EXT REL TAB PO SCH ×3 (07:54→20:19)
[2016-09-12] MEDS: LISINOPRIL 5 MG TAB PO SCH (07:54)
[2016-09-12] MEDS: RIVAROXABAN 20 MG TAB PO SCH (07:55)
[2016-09-12] MEDS: SPIRONOLACTONE 25 MG TAB PO SCH (07:55)
[2016-09-12] MEDS: FUROSEMIDE 40 MG TAB PO SCH (07:56)
[2016-09-12] MEDS ORDERED: METOPROLOL SUCC 25MG EXT REL TAB PO SCH (09:00)
[2016-09-12] MEDS ORDERED: AMIODARONE 200 MG TAB PO ONE (09:45)
[2016-09-12] MEDS ORDERED: POTASSIUM CHLORIDE 10 MEQ TABCR PO STA (09:47)
--- NOTE | 2016-09-12 10:47 | CARDIOLOGY PROGRESS NOTE ---
DATE: 09/12/2016 DATE: 09/12/2016. The patient seen and examined. Chart, medications, telemetry reviewed. SUBJECTIVE: The patient feels substantially better this morning after IV diuresis yesterday approximately 3 liters. Notes no worsening shortness of breath, orthopnea. Notes no edema. Remains in atrial fibrillation with variable ventricular response rates. Heart rate this morning 100-120. He is breathing comfortably on 2 liters nasal cannula. OBJECTIVE: VITAL SIGNS: Heart rate is 108, blood pressures 148/78 this morning. NECK: Thick. There is no distinct jugular venous distention. LUNGS: Good aeration to the bases. CARDIOVASCULAR EXAMINATION: Irregular, irregular. PMI is displaced laterally. Pacer defibrillator sites without tenderness. ABDOMEN: Soft. EXTREMITIES: Reveal no edema. LABORATORY DATA: Sodium is 140, potassium is 3.7, chloride is 106, bicarbonate is 23, BUN is 19, creatinine 0.9. AST and ALT are mildly elevated at 57 and 88. IMPRESSION: A 41-year-old male, very complex past history which includes severe idiopathic dilated cardiomyopathy, originally diagnosed in 2006, admitted with issues as follows: 1. Pulmonary edema secondary to profound left ventricular dysfunction. 2. Above precipitated by atrial fibrillation with rapid ventricular response with failure of sotalol therapy. RECOMMENDATIONS: The patient appears much better, hemodynamically compensated today after diuresis. Sotalol has been discontinued. We will initiate amiodarone at 200 mg 4 times per day. Discussed this in detail with the patient. Will continue metoprolol succinate for rate control while initiating. Supplement additional potassium this morning. The patient will need to discontinue methotrexate. EKGs and hepatic function will need to be followed closely. Baseline TSH ordered this morning.
--- NOTE | 2016-09-12 11:07 | Hospitalist Progress Note ---
Hospitalist Progress Note Date of Service Sep 12, 2016. Subjective Pt evaluation today including: conversation w/ patient, physical exam, chart review, lab review, review of inpatient medication list Voiding: no voiding problems, no incontinence Patient states he is feeling well. He has improved significantly since admission. +mild SOB. Patient denies any fever, chills, sweats, lightheadedness , dizziness, vision changes, CP, palpitations, edema, wheezing, cough, abdominal pain, nausea, vomiting, diarrhea, urinary symptoms, melena, numbness/ tingling, weakness, muscle/joint pain, anxiety/depression, active bleeding, or new skin discoloration/changes. Medications Current Inpatient Medications Medications (Trade) Dose Ordered Sig/Hector Route Start Time Stop Time Status Last Admin Dose Admin Acetaminophen (Tylenol Tab) 650 mg Q4H PRN PO 09/11/16 10:15 10/11/16 10:14 Al Hydrox/Mg Hydrox/Simethicone (Maalox Max Susp) 15 ml Q4H PRN PO 09/11/16 10:15 10/11/16 10:14 Magnesium Hydroxide (Milk Of Magnesia Susp) 30 ml Q12H PRN PO 09/11/16 10:15 10/11/16 10:14 Ondansetron HCl (Zofran Inj) 4 mg Q6H PRN IV 09/11/16 10:15 10/11/16 10:14 Nitroglycerin (Nitrostat Tab) 0.4 mg UD PRN SL 09/11/16 10:15 10/11/16 10:14 Polyethylene (Miralax Powder Packet) 17 gm DAILY PRN PO 09/11/16 10:15 10/11/16 10:14 Allopurinol (Zyloprim Tab) 100 mg DAILY PO 09/12/16 09:00 10/12/16 08:59 09/12/16 07:54 100 MG Folic Acid (Folvite Tab) 1 mg DAILY PO 09/12/16 09:00 10/12/16 08:59 09/12/16 07:54 1 MG Furosemide (Lasix Tab) 40 mg DAILY PO 09/12/16 09:00 10/12/16 08:59 09/12/16 07:56 40 MG Lisinopril (Zestril Tab) 5 mg QAM PO 09/12/16 09:00 10/12/16 08:59 09/12/16 07:54 5 MG Magnesium Oxide (Mag-Ox Tab) 400 mg DAILY PO 09/12/16 09:00 10/12/16 08:59 09/12/16 07:53 400 MG Potassium Chloride (Klor-Con M10) 10 meq BID PO 09/11/16 21:00 10/11/16 20:59 09/12/16 07:53 10 MEQ Rivaroxaban (Xarelto Tab) 20 mg DAILY PO 09/12/16 09:00 10/12/16 08:59 09/12/16 07:55 20 MG Spironolactone (Aldactone Tab) 25 mg DAILY PO 09/12/16 09:00 10/12/16 08:59 09/12/16 07:55 25 MG Metoprolol Succinate (Toprol Xl Tab) 25 mg BID17 PO 09/11/16 17:00 10/11/16 16:59 09/12/16 07:54 25 MG Amiodarone HCl (Cordarone Tab) 200 mg QID PO 09/12/16 13:00 10/12/16 12:59 Objective Vital Signs Date Time Temp Pulse Resp B/P Pulse Ox O2 Delivery O2 Flow Rate FiO2 09/12/16 08:00 96 Nasal Cannula 1.0 09/12/16 07:00 36.4 121 14 148/78 96 Nasal Cannula 2.0 09/12/16 04:18 95 Nasal Cannula 1.0 09/12/16 04:02 37.1 102 18 94/78 95 09/12/16 00:15 36.8 96 22 96/55 95 09/12/16 00:00 95 Nasal Cannula 1.0 09/11/16 21:46 88 93/69 09/11/16 20:00 95 Nasal Cannula 3.0 09/11/16 19:40 108 86/71 09/11/16 19:10 36.8 108 15 86/71 93 Nasal Cannula 4.0 09/11/16 16:25 88 09/11/16 16:00 95 Nasal Cannula 3.0 09/11/16 15:05 36.6 120 28 107/77 95 Room Air 4.0 09/11/16 12:06 128 09/11/16 12:00 98 Mask 7.0 3/9/17 11:21 149 09/11/16 11:00 36.6 157 30 131/80 98 Mask 7.0 Physical Exam General Appearance: no apparent distress, + obese, + pertinent finding (O2 supplement on ) Eyes: normal inspection, PERRL ENT: hearing grossly normal Neck: supple Respiratory/Chest: lungs clear, no respiratory distress, no accessory muscle use Cardiovascular: no JVD, + tachycardia, + irregularly irregular Abdomen: normal bowel sounds, non tender, soft Extremities: no pedal edema, no calf tenderness 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: alert, normal mood/affect, oriented x 3 Skin: normal color, warm/dry, + pertinent finding (psoriasis noted diffusely) Laboratory Results Last 24 Hours Test 09/11/16 13:40 09/11/16 16:00 09/11/16 16:06 09/12/16 00:00 Urine Color YELLOW Urine Appearance CLEAR Urine pH 6.5 Urine Specific [place] 1.002 Urine Protein NEG Urine Glucose (UA) NEG Urine Ketones NEG Urine Occult Blood NEG Urine Nitrite NEG Urine Bilirubin NEG Urine Urobilinogen NEG Urine Leukocyte Esterase NEG Urine WBC (Auto) 0 /hpf Urine RBC (Auto) 0-4 /hpf Urine Hyaline Casts (Auto) 1-5 /lpf Urine Epithelial Cells (Auto) 0-5 /lpf Urine Bacteria (Auto) NEG Creatine Kinase MB Ratio Creatine Kinase MB 0.6 ng/ml Troponin I 0.016 ng/ml Test 09/12/16 00:30 09/12/16 05:21 09/12/16 10:15 Creatine Kinase MB < 0.5 ng/ml Troponin I 0.020 ng/ml White Blood Count 12.19 K/uL Red Blood Count 4.38 M/uL Hemoglobin 13.0 g/dL Hematocrit 38.9 % Mean Corpuscular Volume 88.8 fL Mean Corpuscular Hemoglobin 29.7 pg Mean Corpuscular Hemoglobin Concent 33.4 g/dl RDW Standard Deviation 48.7 fL RDW Coefficient of Variation 15.5 % Platelet Count 294 K/uL Mean Platelet Volume 9.9 fL Sodium Level 140 mmol/L Potassium Level 3.7 mmol/L Chloride Level 106 mmol/L Carbon Dioxide Level 23 mmol/L Anion Gap 11.0 mmol/L Blood Urea Nitrogen 19 mg/dl Creatinine 0.91 mg/dl Est Creatinine Clear Calc Drug Dose 135.4 ml/min Estimated GFR () 120.1 Estimated GFR (Non- 103.6 BUN/Creatinine Ratio 20.4 Random Glucose 99 mg/dl Calcium Level 8.3 mg/dl Magnesium Level 2.5 mg/dl Total Bilirubin 1.2 mg/dl Aspartate Amino Transf (AST/SGOT) 57 U/L Alanine Aminotransferase (ALT/SGPT) 88 U/L Alkaline Phosphatase 78 U/L Total Protein 6.3 gm/dl Albumin 3.0 gm/dl Globulin 3.3 gm/dl Albumin/Globulin Ratio 0.9 Assessment and Plan 41 y/o male, with PMHx of idiopathic dilated cardiomyopathy, CHF, a.fib, NEAL, psoriasis and gout, who presented to the ED because of severe SOB x3 days. A.fib w/ RVR: - Admit to tele for cardiac monitoring--> reviewed- a.fib w/ rvr - Trend cardiac enzymes- negative - Patient follows with Dr. Johnson. Consulted- appreciate recommendations -- Rate control, as per cardiology--> Metoprolol 25 mg BID, IV Digoxin, Amiodarone drip, Sotalol held -- Xarelto 20 mg daily - TSH WNL - U/A negative - Influenza negative - Follow CBC and PRP Idiopathic dilated cardiomyopathy: - Continue Lasix 40 mg daily, Lisinopril 10 mg daily, Mag-Ox 400 mg daily, KCL 10 mEq daily, and Aldactone 25 mg daily - ECHO 08/29/16- The left ventricle is severely dilated. There is severe global hypokinesis of the left ventricle. The LV Ejection Fraction = 15-20%. The right ventricle is normal size. he right ventricular systolic function is reduced as assessed by tricuspid annular plane systolic excursion (TAPSE) (TAPSE <1.6 cm). Moderate aortic root dilatation. The left atrium is moderately dilated. - ?Referral to [place] for heart transplant per cardiology Acute respiratory failure with hypoxia, secondary to pulmonary edema from heart failure, resolving: - CXR: cardiomegaly, pulmonary vascular congestion - Treat with IV/PO Lasix per cardiology - Potassium supplement - Daily weights, monitor I&Os - O2 protocol, wean as tolerated Gout: Continue Allopurinol 100 mg daily Psoriatic arthritis: Methotrexate 2.5 mg, 3 tablets once per week held per cardiology due to Amiodarone GI Prophylaxis: Maalox PRN, IV Zofran PRN, Colace and/or Milk of Mag PRN DVT prophylaxis: FRANCIS Cook and SCDs Code Status: LEVEL I, FULL Dispo: Discharge uncertain at this time
[2016-09-12] MEDS: AMIODARONE 200 MG TAB PO SCH ×3 (13:23→20:16)
[2016-09-13 04:25] VITALS: BP 92/64; PULSE 86; TEMP 36.8; O2SAT 95
[2016-09-13 06:12] LABS: HEMATOCRIT 40.6 % (42-52); MEAN CELL VOLUME 86.9 fL (80-100); MEAN CORPUSCULAR HEMOGLOBIN 28.7 pg (25-34); MEAN PLATELET VOLUME 9.5 fL (7.4-10.4); PLATELET COUNT 311 K/uL (130-400); RED BLOOD COUNT 4.67 M/uL (4.7-6.1); WHITE BLOOD COUNT 11.56 K/uL (4.8-10.8)
[2016-09-13 06:48] LABS: CALCIUM 8.4 mg/dl (8.5-10.1); CREATININE 0.87 mg/dl (0.60-1.40); MAGNESIUM 2.6 mg/dl (1.8-2.4)
[2016-09-13] MEDS: SPIRONOLACTONE 25 MG TAB PO SCH (07:34)
[2016-09-13] MEDS: AMIODARONE 200 MG TAB PO SCH ×4 (07:34→21:12)
[2016-09-13] MEDS: MAGNESIUM OXIDE 400 MG TAB PO SCH (07:35)
[2016-09-13] MEDS: LISINOPRIL 5 MG TAB PO SCH (07:35)
[2016-09-13] MEDS: METOPROLOL SUCC 25MG EXT REL TAB PO SCH ×3 (07:35→21:11)
[2016-09-13] MEDS: ALLOPURINOL 100 MG TAB PO SCH (07:35)
[2016-09-13] MEDS: RIVAROXABAN 20 MG TAB PO SCH (07:35)
[2016-09-13] MEDS: FUROSEMIDE 40 MG TAB PO SCH (07:35)
[2016-09-13] MEDS: POTASSIUM CHLORIDE 10 MEQ TABCR PO SCH ×2 (07:35→21:12)
[2016-09-13 07:44] VITALS: BP 102/66; PULSE 89; TEMP 36.5; O2SAT 94
--- NOTE | 2016-09-13 11:06 | Cardiology Follow-Up ---
Subjective Subjective Date of Service: Sep 13, 2016. Pt evaluation today including: conversation w/ patient, physical exam, chart review, lab review, review of studies, review of inpatient medication list Additional Details: Pt seen and examined, states that he feels well. Zhang cp, sob, palpitations, lightheadedness or dizziness. Tolerating amiodarone without issue. Tele reviewed: atrial fibrillation with variable rates, 90's-130's, improved. Problem List Medical Problems: (1) Cardiomyopathy Status: Acute (2) CHF (congestive heart failure) Status: Chronic (3) Hypotension Status: Acute (4) Obesity Status: Acute (5) Thoracic back pain Status: Acute Review of Systems Respiratory: No cough, No dyspnea at rest, No dyspnea on exertion, No hemoptysis, No problem reported, No see HPI, No shortness of breath, No sputum, No wheezing Cardiac: No PND, No chest pain, No claudication, No edema, No orthopnea, No palpitations, No problem reported, No see HPI Objective Vital Signs Last Vital Signs Documentation Date Time Temp Pulse Resp B/P Pulse Ox O2 Delivery O2 Flow Rate FiO2 09/13/16 08:01 Nasal Cannula 2.0 09/13/16 07:44 36.5 89 18 102/66 94 Physical Exam: General Appearance: WD/WN, no apparent distress Eyes: bilateral eyes EOMI, bilateral eyes PERRL, bilateral eyes normal inspection ENT: normal ENT inspection, hearing grossly normal, pharynx normal Neck: supple, no adenopathy, thyroid normal, no JVD, no carotid bruits, trachea midline Respiratory/Chest: chest non-tender, lungs clear, normal breath sounds, no respiratory distress, no accessory muscle use Cardiovascular: no edema, no JVD, no murmur, + tachycardia, + irregularly irregular Abdomen: normal bowel sounds, non tender, soft, no organomegaly, no pulsatile mass Extremities: non-tender, normal inspection, no pedal edema, no calf tenderness 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 atrial fibrillation will not tolerate well given underlying nonischemic cardiomyopathy tolerating amiodarone well QTc stable rates improving already on Xarelto (uninterrupted) if does not convert on his own will tentatively plan for DC cardioversion on 09/15 methotrexate held secondary to possible interaction and worsening of liver function daily ecg's cont to monitor on tele 2. nonischemic cardiomyopathy stable will not tolerate losing atrial kick cont evidence based beta som, lasix, lisinopril, spironolactone
--- NOTE | 2016-09-13 11:10 | Progress Note ---
Subjective Date of Service: Sep 13, 2016. Subjective Pt evaluation today including: conversation w/ patient, physical exam, lab review, review of inpatient medication list Pain: no pain PO Intake: adequate Voiding: no voiding problems breathing much improved, off of oxygen this morning ambulating around the RN unit, gets some mild dyspnea but vastly improved diuresed well seen by cardiology, planning to keep over the weekend, re-evaluate on Thursday morning for plan Problem List Medical Problems: (1) Cardiomyopathy Status: Acute (2) CHF (congestive heart failure) Status: Chronic (3) Hypotension Status: Acute (4) Obesity Status: Acute (5) Thoracic back pain Status: Acute Review of Systems Respiratory: + dyspnea on exertion All Other Systems: Reviewed and Negative Medications Current Inpatient Medications Medications (Trade) Dose Ordered Sig/Hector Route Start Time Stop Time Status Last Admin Dose Admin Acetaminophen (Tylenol Tab) 650 mg Q4H PRN PO 09/11/16 10:15 10/11/16 10:14 Al Hydrox/Mg Hydrox/Simethicone (Maalox Max Susp) 15 ml Q4H PRN PO 09/11/16 10:15 10/11/16 10:14 Magnesium Hydroxide (Milk Of Magnesia Susp) 30 ml Q12H PRN PO 09/11/16 10:15 10/11/16 10:14 Ondansetron HCl (Zofran Inj) 4 mg Q6H PRN IV 09/11/16 10:15 10/11/16 10:14 Nitroglycerin (Nitrostat Tab) 0.4 mg UD PRN SL 09/11/16 10:15 10/11/16 10:14 Polyethylene (Miralax Powder Packet) 17 gm DAILY PRN PO 09/11/16 10:15 10/11/16 10:14 Allopurinol (Zyloprim Tab) 100 mg DAILY PO 09/12/16 09:00 10/12/16 08:59 09/13/16 07:35 100 MG Folic Acid (Folvite Tab) 1 mg DAILY PO 09/12/16 09:00 10/12/16 08:59 09/13/16 07:34 1 MG Furosemide (Lasix Tab) 40 mg DAILY PO 09/12/16 09:00 10/12/16 08:59 09/13/16 07:35 40 MG Lisinopril (Zestril Tab) 5 mg QAM PO 09/12/16 09:00 10/12/16 08:59 09/13/16 07:35 5 MG Magnesium Oxide (Mag-Ox Tab) 400 mg DAILY PO 09/12/16 09:00 10/12/16 08:59 09/13/16 07:35 400 MG Potassium Chloride (Klor-Con M10) 10 meq BID PO 09/11/16 21:00 10/11/16 20:59 09/13/16 07:35 10 MEQ Rivaroxaban (Xarelto Tab) 20 mg DAILY PO 09/12/16 09:00 10/12/16 08:59 09/13/16 07:35 20 MG Spironolactone (Aldactone Tab) 25 mg DAILY PO 09/12/16 09:00 10/12/16 08:59 09/13/16 07:34 25 MG Amiodarone HCl (Cordarone Tab) 200 mg QID PO 09/12/16 13:00 10/12/16 12:59 09/13/16 07:34 200 MG Metoprolol Succinate (Toprol Xl Tab) 25 mg TID PO 09/12/16 14:00 10/12/16 13:59 09/13/16 07:35 25 MG Objective Vital Signs Date Time Temp Pulse Resp B/P Pulse Ox O2 Delivery O2 Flow Rate FiO2 09/13/16 08:01 Nasal Cannula 2.0 09/13/16 07:44 36.5 89 18 102/66 94 2.0 09/13/16 04:25 36.8 86 18 92/64 95 Nasal Cannula 3.0 09/13/16 04:05 Nasal Cannula 4.0 09/13/16 00:00 Nasal Cannula 4.0 09/12/16 23:53 36.8 86 20 92/65 93 Nasal Cannula 3.0 09/12/16 20:00 Nasal Cannula 4.0 09/12/16 19:18 36.6 125 20 93/58 94 Nasal Cannula 4.0 09/12/16 16:05 95/73 09/12/16 16:00 95 Room Air 09/12/16 14:55 36.7 92 20 86/56 96 Nasal Cannula 4.0 09/12/16 12:00 96 Room Air Physical Exam General Appearance: WD/WN, no apparent distress Eyes: normal inspection, EOMI, sclerae normal ENT: normal ENT inspection, hearing grossly normal, pharynx normal Neck: supple, no adenopathy, no JVD, trachea midline Respiratory/Chest: chest non-tender, lungs clear, normal breath sounds, no respiratory distress, no accessory muscle use Cardiovascular: no edema, no gallop, no JVD, no murmur, + tachycardia, + irregularly irregular Abdomen: normal bowel sounds, non tender, soft, no organomegaly Extremities: normal range of motion, non-tender, normal inspection, no pedal edema, no calf tenderness, pelvis stable 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, no motor/sensory deficits, alert, normal mood/affect, oriented x 3 Skin: normal color, warm/dry, + rash (diffuse psoriatic plaques) Lymphatic: no adenopathy Laboratory Results Last 24 Hours Test 09/13/16 05:24 White Blood Count 11.56 K/uL Red Blood Count 4.67 M/uL Hemoglobin 13.4 g/dL Hematocrit 40.6 % Mean Corpuscular Volume 86.9 fL Mean Corpuscular Hemoglobin 28.7 pg Mean Corpuscular Hemoglobin Concent 33.0 g/dl RDW Standard Deviation 47.0 fL RDW Coefficient of Variation 15.3 % Platelet Count 311 K/uL Mean Platelet Volume 9.5 fL Sodium Level 142 mmol/L Potassium Level 4.0 mmol/L Chloride Level 107 mmol/L Carbon Dioxide Level 27 mmol/L Anion Gap 8.0 mmol/L Blood Urea Nitrogen 15 mg/dl Creatinine 0.87 mg/dl Est Creatinine Clear Calc Drug Dose 140.6 ml/min Estimated GFR () 123.4 Estimated GFR (Non- 106.5 BUN/Creatinine Ratio 17.0 Random Glucose 97 mg/dl Calcium Level 8.4 mg/dl Magnesium Level 2.6 mg/dl Total Bilirubin 1.0 mg/dl Aspartate Amino Transf (AST/SGOT) 37 U/L Alanine Aminotransferase (ALT/SGPT) 88 U/L Alkaline Phosphatase 76 U/L Total Protein 6.3 gm/dl Albumin 3.1 gm/dl Globulin 3.2 gm/dl Albumin/Globulin Ratio 1.0 Assessment and Plan 41 yo male with long history of idiopathic cardiomyopathy, chronic systolic HF, persistent atrial fibrillation who was cardioverted two weeks POA for persistent atrial fibrillation. Unfortunately he went back into atrial fibrillation a few days after discharge and was struggling with increased pulmonary edema and dyspnea as outpatient. Advised to be admitted by cardiology as outpatient but he tried to get better at home. On admission his HR was in the 130-140's with frequent bouts of ventricular tachycardia. Evaluated by cardiology, HR control achieved after 24 hours with Digoxin IV and increasing metoprolol to TID. - Acute diastolic and systolic heart failure on chronic systolic heart failure: diuresed 3L with Lasix IV on admission resolved today, lungs clear, off of oxygen, back on Lasix 40mg PO daily for volume control - Recurrent atrial fibrillation with RVR on admission rates better now than on admission, received Digoxin on admission metoprolol increased to 25mg TID, continue Amiodarone 200mg QID for initial loading was previously on Sotalol which was stopped on admission, no plans to resume now that he will be on Amiodarone anticoagulated on Xarelto keep on telemetry plan to keep over the weekend and discuss again with cardiology on Thursday - Idiopathic cardiomyopathy: EF 15-20%, declining overall function with recurrent atrial fibrillation needs referral to [place] for heart transplant evaluation at this point he is improving so hold on any plans for transfer to [place] - Acute respiratory failure with hypoxia: due to pulmonary edema from heart failure resolved today, breathing comfortably on room air - Psoriasis: methotrexate stopped on admission - DVT prophylaxis: Xarelto chronically Plan: keep on tele, ambulate in hallways to get an idea of rate control on exertion, cardiology following, defer to them for definitive plan and timing of discharge
[2016-09-13 11:44] VITALS: BP 100/58; PULSE 139; PULSE 80; TEMP 36.6; O2SAT 93
[2016-09-13 15:57] VITALS: BP 86/53; PULSE 96; TEMP 36.8; O2SAT 90
[2016-09-13 19:53] VITALS: BP 86/68; PULSE 89; TEMP 36.8; O2SAT 93
[2016-09-13 23:00] VITALS: BP 102/56; PULSE 94; TEMP 36.9; O2SAT 92
[2016-09-14 04:05] VITALS: BP 118/72; PULSE 78; TEMP 36.8; O2SAT 93
[2016-09-14 05:59] LABS: HEMATOCRIT 41.4 % (42-52); MEAN CELL VOLUME 87.2 fL (80-100); MEAN CORPUSCULAR HEMOGLOBIN 28.8 pg (25-34); MEAN CORPUSCULAR HGB CONC 33.1 g/dl (32-36); MEAN PLATELET VOLUME 9.6 fL (7.4-10.4); PLATELET COUNT 315 K/uL (130-400); RED BLOOD COUNT 4.75 M/uL (4.7-6.1); WHITE BLOOD COUNT 12.06 K/uL (4.8-10.8)
[2016-09-14 06:29] LABS: BUN/CREATININE RATIO 14.9 (10-20); CALCIUM 8.5 mg/dl (8.5-10.1); MAGNESIUM 2.5 mg/dl (1.8-2.4); POTASSIUM 3.8 mmol/L (3.5-5.1)
[2016-09-14 06:31] LABS: ALB/GLOB RATIO 0.9 (0.9-2)
[2016-09-14 07:44] VITALS: BP 97/62; PULSE 92; TEMP 36.8; O2SAT 92
[2016-09-14] MEDS: METOPROLOL SUCC 25MG EXT REL TAB PO SCH ×3 (08:00→20:48)
[2016-09-14] MEDS: MAGNESIUM OXIDE 400 MG TAB PO SCH (08:00)
[2016-09-14] MEDS: AMIODARONE 200 MG TAB PO SCH ×4 (08:00→20:48)
[2016-09-14] MEDS: SPIRONOLACTONE 25 MG TAB PO SCH (08:00)
[2016-09-14] MEDS: RIVAROXABAN 20 MG TAB PO SCH (08:00)
[2016-09-14] MEDS: FUROSEMIDE 40 MG TAB PO SCH (08:00)
[2016-09-14] MEDS: LISINOPRIL 5 MG TAB PO SCH (08:00)
[2016-09-14] MEDS: POTASSIUM CHLORIDE 10 MEQ TABCR PO SCH ×2 (08:00→20:47)
[2016-09-14] MEDS: ALLOPURINOL 100 MG TAB PO SCH (08:01)
--- NOTE | 2016-09-14 09:28 | Progress Note ---
Subjective Date of Service: Sep 14, 2016. Subjective Pt evaluation today including: conversation w/ patient, physical exam, conversation w/ business continuity consultant, review of inpatient medication list Pain: no pain PO Intake: adequate Voiding: no voiding problems patient feeling much better, eating well, ambulating in hallway anticipates cardioversion tomorrow all questions answered Problem List Medical Problems: (1) Cardiomyopathy Status: Acute (2) CHF (congestive heart failure) Status: Chronic (3) Hypotension Status: Acute (4) Obesity Status: Acute (5) Thoracic back pain Status: Acute Review of Systems Constitutional: + weakness Respiratory: + dyspnea on exertion Skin: + rash (psoriatic) All Other Systems: Reviewed and Negative Medications Current Inpatient Medications Medications (Trade) Dose Ordered Sig/Hector Route Start Time Stop Time Status Last Admin Dose Admin Acetaminophen (Tylenol Tab) 650 mg Q4H PRN PO 09/11/16 10:15 10/11/16 10:14 Al Hydrox/Mg Hydrox/Simethicone (Maalox Max Susp) 15 ml Q4H PRN PO 09/11/16 10:15 10/11/16 10:14 Magnesium Hydroxide (Milk Of Magnesia Susp) 30 ml Q12H PRN PO 09/11/16 10:15 10/11/16 10:14 Ondansetron HCl (Zofran Inj) 4 mg Q6H PRN IV 09/11/16 10:15 10/11/16 10:14 Nitroglycerin (Nitrostat Tab) 0.4 mg UD PRN SL 09/11/16 10:15 10/11/16 10:14 Polyethylene (Miralax Powder Packet) 17 gm DAILY PRN PO 09/11/16 10:15 10/11/16 10:14 Allopurinol (Zyloprim Tab) 100 mg DAILY PO 09/12/16 09:00 10/12/16 08:59 09/14/16 08:01 100 MG Folic Acid (Folvite Tab) 1 mg DAILY PO 09/12/16 09:00 10/12/16 08:59 09/14/16 08:00 1 MG Furosemide (Lasix Tab) 40 mg DAILY PO 09/12/16 09:00 10/12/16 08:59 09/14/16 08:00 40 MG Lisinopril (Zestril Tab) 5 mg QAM PO 09/12/16 09:00 10/12/16 08:59 09/14/16 08:00 5 MG Magnesium Oxide (Mag-Ox Tab) 400 mg DAILY PO 09/12/16 09:00 10/12/16 08:59 09/14/16 08:00 400 MG Potassium Chloride (Klor-Con M10) 10 meq BID PO 09/11/16 21:00 10/11/16 20:59 09/14/16 08:00 10 MEQ Rivaroxaban (Xarelto Tab) 20 mg DAILY PO 09/12/16 09:00 10/12/16 08:59 09/14/16 08:00 20 MG Spironolactone (Aldactone Tab) 25 mg DAILY PO 09/12/16 09:00 10/12/16 08:59 09/14/16 08:00 25 MG Amiodarone HCl (Cordarone Tab) 200 mg QID PO 09/12/16 13:00 10/12/16 12:59 09/14/16 08:00 200 MG Metoprolol Succinate (Toprol Xl Tab) 25 mg TID PO 09/12/16 14:00 10/12/16 13:59 09/14/16 08:00 25 MG Objective Vital Signs Date Time Temp Pulse Resp B/P Pulse Ox O2 Delivery O2 Flow Rate FiO2 09/14/16 08:01 Room Air 09/14/16 07:44 36.8 92 18 97/62 92 Room Air 09/14/16 04:05 36.8 78 18 118/72 93 Room Air 09/14/16 04:00 Room Air 09/14/16 00:00 Room Air 09/13/16 23:00 36.9 94 16 102/56 92 Room Air 09/13/16 20:00 Room Air 09/13/16 19:53 36.8 89 18 86/68 93 Room Air 09/13/16 16:45 Nasal Cannula 2.0 09/13/16 15:57 36.8 96 18 86/53 90 Room Air 09/13/16 12:21 Room Air 09/13/16 11:44 36.6 139 20 100/58 93 Room Air Physical Exam General Appearance: WD/WN, no apparent distress Eyes: normal inspection, EOMI, sclerae normal ENT: normal ENT inspection, hearing grossly normal, pharynx normal Neck: supple, no adenopathy, no JVD, trachea midline Respiratory/Chest: chest non-tender, lungs clear, normal breath sounds, no respiratory distress, no accessory muscle use Cardiovascular: no edema, no gallop, no JVD, no murmur, + tachycardia, + irregularly irregular Abdomen: normal bowel sounds, non tender, soft, no organomegaly Extremities: normal range of motion, non-tender, normal inspection, no calf tenderness, pelvis stable, + pedal edema (trace bilaterally) 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: 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, no motor/sensory deficits, alert, normal mood/affect, oriented x 3 Skin: normal color, warm/dry, + rash (diffuse, psoriatic plaques) Lymphatic: no adenopathy Laboratory Results Last 24 Hours Test 09/14/16 05:20 White Blood Count 12.06 K/uL Red Blood Count 4.75 M/uL Hemoglobin 13.7 g/dL Hematocrit 41.4 % Mean Corpuscular Volume 87.2 fL Mean Corpuscular Hemoglobin 28.8 pg Mean Corpuscular Hemoglobin Concent 33.1 g/dl RDW Standard Deviation 47.1 fL RDW Coefficient of Variation 15.4 % Platelet Count 315 K/uL Mean Platelet Volume 9.6 fL Sodium Level 141 mmol/L Potassium Level 3.8 mmol/L Chloride Level 104 mmol/L Carbon Dioxide Level 28 mmol/L Anion Gap 9.0 mmol/L Blood Urea Nitrogen 15 mg/dl Creatinine 1.00 mg/dl Est Creatinine Clear Calc Drug Dose 122.4 ml/min Estimated GFR () 107.1 Estimated GFR (Non- 92.4 BUN/Creatinine Ratio 14.9 Random Glucose 99 mg/dl Calcium Level 8.5 mg/dl Magnesium Level 2.5 mg/dl Total Bilirubin 0.8 mg/dl Aspartate Amino Transf (AST/SGOT) 22 U/L Alanine Aminotransferase (ALT/SGPT) 71 U/L Alkaline Phosphatase 74 U/L Total Protein 6.6 gm/dl Albumin 3.2 gm/dl Globulin 3.4 gm/dl Albumin/Globulin Ratio 0.9 Assessment and Plan 41 yo male with long history of idiopathic cardiomyopathy, chronic systolic HF, persistent atrial fibrillation who was cardioverted two weeks POA for persistent atrial fibrillation. Unfortunately he went back into atrial fibrillation a few days after discharge and was struggling with increased pulmonary edema and dyspnea as outpatient. Advised to be admitted by cardiology as outpatient but he tried to get better at home. On admission his HR was in the 130-140's with frequent bouts of ventricular tachycardia. Evaluated by cardiology, HR control achieved after 24 hours with Digoxin IV and increasing metoprolol to TID. - Acute diastolic and systolic heart failure on chronic systolic heart failure: diuresed 3L with Lasix IV on admission acute component is resolved, breathing comfortably, lungs clear, off of oxygen, back on Lasix 40mg PO daily for volume control - Recurrent atrial fibrillation with RVR on admission rates better now than on admission, received Digoxin on admission metoprolol increased to 25mg TID, continue Amiodarone 200mg QID for initial loading was previously on Sotalol which was stopped on admission, no plans to resume now that he will be on Amiodarone anticoagulated on Xarelto keep on telemetry cardiology tentatively planning for DC cardioversion, unsure of timing - Idiopathic cardiomyopathy: EF 15-20%, declining overall function with recurrent atrial fibrillation needs referral to [place] for heart transplant evaluation at this point he is improving so hold on any plans for transfer to [place] - Acute respiratory failure with hypoxia: due to pulmonary edema from heart failure resolved, breathing comfortably on room air - Psoriasis: methotrexate stopped on admission, would not resume at this time due to increased LFT and starting Amiodarone - DVT prophylaxis: Xarelto chronically Plan: keep on tele, ambulate in hallways to get an idea of rate control on exertion, cardiology following, defer to them for definitive plan and timing of discharge
[2016-09-14 10:46] VITALS: BP 91/66; PULSE 75; TEMP 36.7; O2SAT 93
--- NOTE | 2016-09-14 12:27 | Cardiology Follow-Up ---
Subjective Subjective Date of Service: Sep 14, 2016. Pt evaluation today including: conversation w/ patient, conversation w/ family , physical exam, chart review, lab review, review of studies, review of inpatient medication list Additional Details: Pt seen and examined, with mother at bedside. States that he feels well, not ambulating much but no issues walking to bathroom. Denies cp, sob, palpitations , lightheadedness or dizziness. Tele reviewed: atrial fibrillation, rates improved. Problem List Medical Problems: (1) Cardiomyopathy Status: Acute (2) CHF (congestive heart failure) Status: Chronic (3) Hypotension Status: Acute (4) Obesity Status: Acute (5) Thoracic back pain Status: Acute Review of Systems Constitutional: + weakness Respiratory: + dyspnea on exertion Cardiac: No PND, No chest pain, No claudication, No edema, No orthopnea, No palpitations, No problem reported, No see HPI Skin: + rash (psoriatic) Objective Vital Signs Last Vital Signs Documentation Date Time Temp Pulse Resp B/P Pulse Ox O2 Delivery O2 Flow Rate FiO2 09/14/16 12:18 Room Air 09/14/16 10:46 36.7 75 18 91/66 93 09/13/16 16:45 2.0 Physical Exam: General Appearance: WD/WN, no apparent distress ENT: normal ENT inspection, hearing grossly normal, pharynx normal Neck: supple, no adenopathy, no JVD, trachea midline Respiratory/Chest: chest non-tender, lungs clear, normal breath sounds, no respiratory distress, no accessory muscle use Cardiovascular: no edema, no gallop, no JVD, no murmur, + tachycardia, + irregularly irregular Abdomen: normal bowel sounds, non tender, soft, no organomegaly Extremities: normal range of motion, non-tender, normal inspection, no calf tenderness, pelvis stable, + pedal edema (trace bilaterally) 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 atrial fibrillation will not tolerate well given underlying nonischemic cardiomyopathy tolerating amiodarone well QTc stable rates improving already on Xarelto (uninterrupted) unfortunately has not converted will plan for d/c cardioversion in AM with anticipated d/c later in the day 2. nonischemic cardiomyopathy stable will not tolerate losing atrial kick cont evidence based beta som, lasix, lisinopril, spironolactone
[2016-09-14 15:05] VITALS: BP 92/59; PULSE 111; TEMP 36.5; O2SAT 94
[2016-09-14 19:29] VITALS: BP 92/52; PULSE 53; TEMP 36.9; O2SAT 92
[2016-09-15] VITALS (11 sets, daily range): BP systolic 89–104; BP diastolic 63–80; PULSE 79–119; TEMP 36.6–37; O2SAT 90–98
[2016-09-15] MEDS: RIVAROXABAN 20 MG TAB PO SCH (07:02)
[2016-09-15] MEDS: METOPROLOL SUCC 25MG EXT REL TAB PO SCH ×2 (07:02→12:24)
[2016-09-15] MEDS: MAGNESIUM OXIDE 400 MG TAB PO SCH (07:02)
[2016-09-15] MEDS: SPIRONOLACTONE 25 MG TAB PO SCH (07:02)
[2016-09-15] MEDS: POTASSIUM CHLORIDE 10 MEQ TABCR PO SCH (07:02)
[2016-09-15] MEDS: AMIODARONE 200 MG TAB PO SCH ×2 (07:02→12:24)
[2016-09-15] MEDS: FUROSEMIDE 40 MG TAB PO SCH (07:02)
[2016-09-15] MEDS: ALLOPURINOL 100 MG TAB PO SCH (07:03)
[2016-09-15] MEDS: LISINOPRIL 5 MG TAB PO SCH (07:03)
[2016-09-15] MEDS ORDERED: MIDAZOLAM HCL 5 MG/ML 1 ML VIAL ONE (08:40)
[2016-09-15] MEDS ORDERED: FENTANYL CITRATE INJ 50 MCG/1 ML 2 ML VIAL ONE (08:42)
--- NOTE | 2016-09-15 09:16 | Procedure Note ---
Pre-Mod Sedation Assessment General Date of Moderate Sedation: Sep 15, 2016. Vital Signs: Vital Signs Past 12 Hours Date Time Temp Pulse Resp B/P Pulse Ox O2 Delivery O2 Flow Rate FiO2 09/15/16 08:01 Room Air 09/15/16 07:50 36.7 86 16 92/80 90 Room Air 09/15/16 04:00 Room Air 09/15/16 04:00 37.0 94 17 89/66 90 09/15/16 00:00 37.0 91 16 89/70 98 Room Air 09/15/16 00:00 Room Air Review Cardiovascular: no edema, no gallop, no JVD, no murmur, normal peripheral pulses, + irregularly irregular Abdomen: normal bowel sounds, non tender, soft, no organomegaly Lungs: chest non-tender, lungs clear, normal breath sounds, no respiratory distress, no accessory muscle use Airway Class: II Pre-Sedation Airway Assessment Oral Cavity: WNL Smoking Status: Never Smoker Notes The planned sedation has been discussed with the patient and consent obtained. I have identified the patient, determined the appropriateness of sedation and have assessed the patient immediately prior to the procedure. All medicine(s) and interventions are by my order.
--- NOTE | 2016-09-15 09:22 | Procedure Note ---
Post-Mod Sedation Assessment General Date of Moderate Sedation Sep 15, 2016. Vital Signs: Vital Signs Past 12 Hours Date Time Temp Pulse Resp B/P Pulse Ox O2 Delivery O2 Flow Rate FiO2 09/15/16 08:01 Room Air 09/15/16 07:50 36.7 86 16 92/80 90 Room Air 09/15/16 04:00 Room Air 09/15/16 04:00 37.0 94 17 89/66 90 09/15/16 00:00 37.0 91 16 89/70 98 Room Air 09/15/16 00:00 Room Air Review - Discharge Criteria Vital Signs Stable: Yes Alert/Oriented/Conversant: Yes Returned to Baseline Mental St: Yes Nausea Absent/Minimal: Yes Pain/Discomfort/Absent/Minimal: Yes Normal/Baseline Respirations: Yes Active Bleeding?: No Pt Received D/C Instructions: No Prescriptions Given: Transmitted (my office will call in)
--- NOTE | 2016-09-15 09:22 | [facility] Post Operative Brief Note ---
Immediate Operative Summary Operative Date Sep 15, 2016. Pre-Operative Diagnosis afib with rvr Post-Operative Diagnosis paf Procedure(s) Performed dc cardioversion Surgeon Kwan Sales Operations Coordinator Surgeon(s) none Estimated Blood Loss none Findings successful cardioversion to sinus Specimens none Complication(s) None Disposition 202
--- NOTE | 2016-09-15 09:24 | Procedure Note ---
Procedure Note Date of Service Sep 15, 2016. Procedure Note Informed consent obtained pt prepped moderate sedation achieved with 2mg of Versed and 50mg of Fentanyl 200J of synchronized, DC energy delivered successful conversion to sinus tolerated well recover in room anticipate d/c later today
--- NOTE | 2016-09-15 09:28 | Cardiology Follow-Up ---
Subjective Subjective Date of Service: Sep 15, 2016. Pt evaluation today including: conversation w/ patient, physical exam, chart review, lab review, review of studies, review of inpatient medication list Additional Details: Pt seen and examined, states that he felt well overnight. Denies cp, sob, palpitations, lightheadedness or dizziness. Tele reviewed: atrial fibrillation with variable rates overnight Problem List Medical Problems: (1) Cardiomyopathy Status: Acute (2) CHF (congestive heart failure) Status: Chronic (3) Hypotension Status: Acute (4) Obesity Status: Acute (5) Thoracic back pain Status: Acute Review of Systems Constitutional: + weakness Respiratory: + dyspnea on exertion Cardiac: No PND, No chest pain, No claudication, No edema, No orthopnea, No palpitations, No problem reported, No see HPI Skin: + rash (psoriatic) Objective Vital Signs Last Vital Signs Documentation Date Time Temp Pulse Resp B/P Pulse Ox O2 Delivery O2 Flow Rate FiO2 09/15/16 08:01 Room Air 09/15/16 07:50 36.7 86 16 92/80 90 09/13/16 16:45 2.0 Physical Exam: General Appearance: WD/WN, no apparent distress ENT: normal ENT inspection, hearing grossly normal, pharynx normal Neck: supple, no adenopathy, no JVD, trachea midline Respiratory/Chest: chest non-tender, lungs clear, normal breath sounds, no respiratory distress, no accessory muscle use Cardiovascular: no edema, no gallop, no JVD, no murmur, + tachycardia, + irregularly irregular Abdomen: normal bowel sounds, non tender, soft, no organomegaly Extremities: normal range of motion, non-tender, normal inspection, no calf tenderness, pelvis stable, + pedal edema (trace bilaterally) 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 atrial fibrillation sotalol changed to amio received appropriate load underwent successful DC cardioversion today my office will call in script for amiodarone 400mg po bid x 5 days, then daily cont xarelto already scheduled for follow up in cardiology office for heart failure clinic in [place] 09/29 2. nonischemic cardiomyopathy stable will not tolerate losing atrial kick cont evidence based beta som, lasix, lisinopril, spironolactone ok to d/c this afternoon
[2016-09-15] MEDS ORDERED: NURSING VERBAL MED ORDER ONE (09:30)
[2016-09-15] MEDS ORDERED: AMIO200T4 PO (11:55)
--- NOTE | 2016-09-15 12:06 | Discharge Instructions ---
Discharge Instructions Date of Service Sep 15, 2016. (Yoli Schwartz PA-C) Admission Reason for Admission: Afib W/ Rvr (Yoli Schwartz PA-C) Discharge Discharge Diagnosis / Problem: Atrial Fibrillation with Fast Heart Rate and Acute Congestive Heart Failure (Yoli Schwartz PA-C) Discharge Goals Goal(s): Decrease discomfort, Improve function, Increase independence (Yoli Schwartz PA-C) Activity Recommendations Activity Limitations: resume your previous activity . (Yoli Schwartz PA-C) Instructions / Follow-Up Instructions / Follow-Up Acute on Chronic Heart Failure due to Atrial Fibrillation and Idiopathic Cardiomyopathy: - You underwent cardioversion on 09/15/2016 and are currently in a normal sinus rhythm. - Your Sotalol was discontinued and you were started on amiodarone -- Your bullet maker has called in your prescription for amiodarone -- They are recommending amiodarone 400 mg twice a day for 5 days and then to take 400 mg daily -- If you have any questions about the dosing of this medication please asked your bullet maker - Continue your Xarelto, metoprolol, and lisinopril as previously prescribed - Continue Lasix 40 mg daily Psoriasis: - At this time stop Methotrexate due to the need to start amiodarone. Follow-Up: - Follow-up with cardiology as already scheduled - Follow-up with the heart failure clinic in [place] on 09/29/2016 - Follow-up with your family doctor in 7-10 days Call your Primary Care doctor if any of the following symptoms or problems start or get worse: * Shortness of breath or difficulty breathing * Wake up at night short of breath * Chest pain * Cough * Swelling of your hands, feet, or legs * More fatigued or tired with your normal activity * Palpitations - sudden fast heart beats WEIGHT * Weigh yourself every morning after using the bathroom. * Use the same scale. * Wear the same amount of clothing. * Write your weight down on a chart. * Call your Primary Care doctor if you gain more than 2-3 pounds in 1-2 days. MEDICATIONS * Use this discharge instruction sheet for medication instructions. * Take your medications at the time your doctor ordered. * Do not skip a dose of your medicines. * If you miss a dose of medicine, take it as soon as possible, but DO NOT DOUBLE A DOSE. * Read your medicine information when you get home. * Know all of the side effects of your medicine. If in doubt, ask your pharmacist * Call your Primary Care doctor's office if you have any side effects. * Be sure all of your doctors know what medicine and herbs you take (including cold, flu, and herbal medicine). Take the following with you to your follow-up doctor appointments: * Weight Chart * Medication List * List of questions Do not drink excessive alcohol, beer or wine. (Yoli Schwartz PA-C) Current Hospital Diet Patient's current hospital diet: AHA Diet (Heart Healthy) (Yoli Schwartz PA-C) Discharge Diet Recommended Diet: AHA Diet (Heart Healthy), Low Sodium Diet (2gm Na) (Yoli Schwartz PA-C) Procedures Procedures Performed: dc cardioversion (Yoli Schwartz PA-C) Pending Studies Studies pending at discharge: no (Yoli Schwartz PA-C) Medical Emergencies . Who to Call and When: Call 911 or go to the Emergency Room if: * If at any time you feel your situation is an emergency * You have tightness or pain in your chest that does not go away with rest or Nitroglycerin * You are very short of breath even with rest . (Yoli Schwartz PA-C) Non-Emergent Contact Non-Emergency issues call your: Primary Care Provider, Sales Promoter Call Non-Emergent contact if: you have a fever, your pain is concerning you, you have any medication questions . (Yoli Schwartz PA-C) . "Provider Documentation" section prepared by Yoli Schwartz. (Yoli Schwartz PA-C) Attending Attestation: Pt seen & examined on day of discharge. I agree with these discharge instructions as prepared by SHAWN Schwartz. Bladimir Guidry MD (Bladimir Guidry MD) VTE Core Measure Inpt VTE Proph given/why not?: Other Anticoagulation, T.E.D. Stockings, SCD's (Yoli Schwartz PA-C)
--- NOTE | 2016-09-15 13:33 | Discharge Summary ---
Discharge Summary Date of Service Sep 15, 2016. (Yoli Schwartz PA-C) Discharge Summary Admission Date: Sep 11, 2016 at 10:25 Discharge Date: Sep 15, 2016 Principal Diagnosis: Acute on Chronic Congestive Heart Failure Secondary to Atrial Fibrillation Problems/Secondary Diagnoses: Medical Problems: (1) Acute viral myocarditis (2) Atrial fibrillation (3) Atrial fibrillation with RVR (4) Cardiomegaly (5) CHF (congestive heart failure) (6) Psoriasis Surgical Problems: (1) S/P ACL repair (1) CHF (congestive heart failure) Status: Chronic Immunizations: Have You Had Influenza Vaccine: No History of Tetanus Vaccine?: YES, WITHIN PAST 10 YEARS History of Pneumococcal: No History of Hepatitis B Vaccine: No Procedures: 1. CHEST ONE VIEW PORTABLE CLINICAL HISTORY: sob dyspnea COMPARISON STUDY: 08/28/2016 FINDINGS: Stable cardiomegaly. Permanent bipolar cardiac pacemaker/defibrillator. Diaphragms are smooth. Mild prominence of pulmonary vasculature. IMPRESSION: Cardiomegaly. Pulmonary vascular congestion 2. Cardioversion - Successful Consultations: 1. Cardiology - Cardioversion and Medication recommendations (Yoli Schwartz PA-C) Principal Diagnosis: acute/chronic systolic CHF Problems/Secondary Diagnoses: chronic systolic CHF 2nd to dilated cardiomyopathy from previous viral myocarditis (Bladimir Guidry MD) Medication Reconciliation Continued Medications: Allopurinol (Zyloprim) 100 Mg Tab 100 MG PO DAILY, TAB Amiodarone Hcl (Cordarone) 200 Mg Tab 400 MG PO DAILY, #30 TAB Take 400 mg twice a day x 5 days then 400 mg daily Folic Acid (Folvite) 1 Mg Tab 1 MG PO DAILY, TAB Furosemide (Lasix) 40 Mg Tab 40 MG PO DAILY, 0 Refills Lisinopril (Lisinopril) 5 Mg Tab 5 MG PO QAM for 30 Days, #30 TAB 3 Refills Magnesium Oxide (Mag-Ox) 400 Mg Tab 400 MG PO DAILY, 0 Refills Metoprolol Succinate (Metoprolol Succinate ER) 25 Mg Tabcr 25 MG PO QAM, #30 TABS 3 Refills Potassium Chloride (Micro-K Ext Rel) 10 Meq Capcr 10 MEQ PO BID, 0 Refills TAKE TWICE DAILY AFTER A MEAL. Rivaroxaban (Xarelto) 20 Mg Tab 20 MG PO DAILY for 30 Days, #30 TAB 6 Refills Spironolactone (Aldactone) 25 Mg Tab 25 MG PO DAILY, 0 Refills Discontinued Medications: Methotrexate (Methotrexate) Unknown Strength Tab 1 DOSE PO WK takes on thursday Sotalol HCl (Sotalol HCl) 80 Mg Tab 120 MG PO [id number] for 30 Days, TAB 3 Refills Discharge Exam Review of Systems: Constitutional: No chills, No fever Eyes: No worsening of vision ENT: No nasal symptoms, No sore throat, No trouble swallowing Respiratory: No cough, No dyspnea at rest, No dyspnea on exertion, No shortness of breath Cardiovascular: No chest pain Abdomen: No constipation, No diarrhea, No nausea, No pain, No vomiting Musculoskeletal: No calf pain, No swelling Genitourinary - Male: No dysuria Integumentary: + problem reported (psoriasis (chronic)) Physical Exam: General Appearance: WD/WN, no apparent distress Eyes: sclerae normal ENT: hearing grossly normal Neck: supple, no JVD, trachea midline Respiratory/Chest: lungs clear, normal breath sounds, no respiratory distress, no accessory muscle use Cardiovascular: no gallop, no murmur, + irregularly irregular Abdomen / GI: normal bowel sounds, non tender, soft Extremities: no calf tenderness, no pedal edema 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: alert, oriented x 3 Skin: normal color, warm/dry, + pertinent finding (multiple scattered psoriatic lesions of arms and back) (Yoli Schwartz, PA-C) Hospital Course ADMISSION: Patient is a pleasant 41 y/o male, with PMHx of idiopathic dilated cardiomyopathy, CHF, a.fib w/ RVR, NEAL, psoriasis, and gout, who presented to the ED because of severe SOB x3 days. Patient was found to be in a.fib w/ RVR. He does have a history of this. He was seen in the hospital ~2 weeks ago with similar symptoms. At that time, he was cardioverted. Per patient, was successful for 2 days. Symptoms have been ongoing since that time, but have worsened greatly in the last couple of days. Patient take Sotalol, Metoprolol, and Xarelto for a.fib. He took all of his medications this AM. Patient does have a hx idiopathic dilated cardiopathy with EF of 15-20%. He follows closely with Dr. Johnson. Patient is currently in the process for a heart transplant. Dr. Johnson will place further orders for a.fib w/ RVR management. It is possible patient will need transferred to [place]. +SOB. +cough. +palpitations. + abdominal discomfort- patient complains of constipation. Last bowel movement on 09/10, but small. +muscle aches. Patient denies any fever, chills, sweats, lightheadedness, dizziness, vision changes, CP, edema, wheezing, nausea, vomiting, diarrhea, urinary symptoms, melena, numbness/tingling, weakness, anxiety/depression, active bleeding, or new skin discoloration/changes. HOSPITAL COURSE: Acute on Chronic Diastolic and Systolic Congestive Heart Failure 2/2 Persistent Atrial Fibrillation: - Utilized Lasix IV with eventual conversion to home dosing of Lasix 40 mg daily to produce a negative balance of 6.5 L diuresed - Received 1 dose of digoxin 250 mcg but was unsuccessful in rhythm conversion - Initially home dose of metoprolol was increased to metoprolol 25 mg BID then to TID - Per recommendations from cardiology he was discharged home on metoprolol 25 mg daily which was his initial dosing - His home dose of Sotalol was discontinued due to plans to convert to amiodarone - He was started on amiodarone 200 mg QID for initial loading with instructions to continue amiodarone 400 mg BID 5 days then to continue 400 mg daily per recommendations by cardiology. Cardiology called in this prescription to patient's pharmacy. - Patient was cardioverted on 09/15/2016 which was successful in converting him from atrial fibrillation to normal sinus rhythm - Appointment was established by cardiology for outpatient follow-up an appointment for the heart failure clinic in [place] was established for 09/29/16 - Presenting symptoms of cough, shortness of breath, and pulmonary congestion improved with diuresis and patient currently states he feels that his baseline. Idiopathic Cardiomyopathy: EF 15-20%, declining overall function with recurrent atrial fibrillation - Patient is to follow-up in [place] with a heart failure clinic and possible plans for consideration of heart transplantation. 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 Recommend PCP follow-up in 7-10 days - Patient was recently cardioverted approximately 2 weeks ago however only remained in NSR for approximately 2 days. Patient extremely symptomatic when converts to atrial fibrillation especially in the setting of RVR as he loses his atrial. Due to the significant nature of his cardiomyopathy he is at high risk for readmission. Total Time Spent: Greater than 30 minutes This includes examination of the patient, discharge planning, medication reconciliation, and communication with other providers. (Yoli Schwartz, BRIAN) Attending Discharge note & attestation: Pt seen/examined, chart reviewed, and care plan d/w SHAWN Schwartz. I agree with the aggarwal components of her documentation. 41yo male with h/o chronic systolic CHF 2nd to dilated cardiomyopathy along with a. fib who presented with acute/chronic CHF and rapid a. fib. He was diuresed with resolution of his pulmonary symptoms and multiple medications were used for rate/rhythm control for his a. fib. He ultimately required elective cardioversion for the a. fib and on 09/15/16 he underwent such with successful conversion to NSR. At discharge all of his cardiac medications are the same EXCEPT for the substitution of amiodarone for sotalol. In addition, his methotrexate (used for psoriasis) has been discontinued due to the newly instituted amiodarone. He has follow-up with [facility] in [place] as well as Dr. Johnson with [facility] in [place]. Discharge exam: gen - NAD neck - no JVD heart - RRR, s1, s2, +s3, 3/6 systolic murmur LSB lungs - CTA b/l abd - soft, NT, no HSM ext - no edema skin - numerous psoriatic plaques Bladimir Guidry MD (Bladimir Guidry MD) Discharge Instructions Please refer to the electronic Patient Visit Report (Discharge Instructions) for additional information. (Yoli Schwartz, HANNAHC) Additional Copies To Isrrael Mahmood M.D.
[2016-09-25] MEDS ORDERED: LISI10TA PO (07:00)
[2016-09-25] MEDS ORDERED: FOLI1TAB7 PO (07:00)
[2016-09-25] MEDS ORDERED: PRED20TA PO (07:00)
[2016-09-25] MEDS ORDERED: LNX125 PO (07:00)
[2016-09-25] MEDS ORDERED: METO25TA3 PO (07:00)
[2016-09-25] MEDS ORDERED: AMIO200T4 PO (08:02)
[2016-10-14] MEDS ORDERED: AMIO200T4 PO (07:02)
== END 2016-09-15 13:43 | disposition home or self-care (01) | DRG 308 ==
LOC: ENRESERVTM → ENRESERVDT → C.EDB 08:01 → UNDOADMIN 10:25 → C.2E 10:25
PROVIDERS: ADMIT Internal Medicine; ATTEND Internal Medicine
PROC: 5A2204Z Restoration of Cardiac Rhythm, Single (ICD-10-PCS; principal; 2016-09-15)
DX: I48.1 Persistent atrial fibrillation (principal); I50.43 Acute on chronic combined systolic (congestive) and diastolic (congestive) heart failure; J96.01 Acute respiratory failure with hypoxia; I42.0 Dilated cardiomyopathy; I47.2 Ventricular tachycardia; G47.33 Obstructive sleep apnea (adult) (pediatric); M10.9 Gout, unspecified; K59.00 Constipation, unspecified; Z82.49 Family history of ischemic heart disease and other diseases of the circulatory system; Z79.899 Other long term (current) drug therapy; E66.9 Obesity, unspecified; Z68.33 Body mass index [BMI] 33.0-33.9, adult; Z79.01 Long term (current) use of anticoagulants; Z88.0 Allergy status to penicillin; Z95.810 Presence of automatic (implantable) cardiac defibrillator; L40.50 Arthropathic psoriasis, unspecified

== ENCOUNTER → 2016-09-25 | Day surgery (SDC) | payer OTHER ==
[~2016-09-25] VITALS: Ht 180.3 cm; Wt 113.0 kg
[~2016-09-25] MED LIST changes: +AMIO200T4 PO; -BTP80 PO; +KETAMINE HCL INJ 50 MG/ML 10 ML VIAL ONE; +LIDOCAINE HCL 2% 2 ML VIAL (20MG/ML) ONE; +LISI10TA PO; +LNX125 PO; +METO25TA3 PO; +MIDAZOLAM HCL 1 MG/ML 2ML VIAL ONE; -MTH25 PO; +PRED20TA PO; +PROPOFOL IV EMULSION 10 MG/ML 20 ML VIAL IV ONE
[2016-09-25 07:05] VITALS: BP 98/47; PULSE 105; TEMP 36.7; O2SAT 93; Ht 180.3 cm; Wt 113.0 kg
--- NOTE | 2016-09-25 07:33 | History & Physical Bridge Note ---
H&P Re-Evaluation Bridge Note: I have examined the patient, reviewed the History & Physical and in the interval since the performance of the History & Physical I have noted the following changes of clinical significance: No changes noted
[2016-09-25 07:45] VITALS: BP 92/71; PULSE 103; O2SAT 97
[2016-09-25 07:48] VITALS: BP 99/73; PULSE 96; O2SAT 98
[2016-09-25 07:51] VITALS: BP 105/75; PULSE 98; O2SAT 98
[2016-09-25 07:56] VITALS: BP 108/86; PULSE 103; O2SAT 97
--- NOTE | 2016-09-25 07:59 | Cardiology Procedure Brief Nt ---
Preliminary Cardiology Note Procedure Date Sep 25, 2016. Pre-Procedure Diagnosis Atrial fibrillation with rapic ventricular resposne Post-Procedure Diagnosis Successful synchronized electrical cardioversion Procedure(s) Performed Successful synchronized electrical cardioversion Nutritional Health Coach Alex Superintendent Custodian Janitor(s) None Estimated Blood Loss None Preliminary Findings Successful synchronized electrical cardioversion was performed using 160 J biphasic countershock Recommendations Continued medical management Fluids (cc crystalloids) 50 Specimens None Complication(s) None Disposition cath lab tech Holding Area
--- NOTE | 2016-09-25 08:04 | Discharge Instructions ---
Discharge Instructions Procedure Procedure Date: Sep 25, 2016. Reason for Visit: A-Akash Johnson To Do W/Anethesia. Discharge Discharge Date: Sep 25, 2016. Last Recorded Wt (Kilograms): 113 Anesthesia Post Anesthesia Instructions: If you have had General Anesthesia or IV Sedation: * Do not drive today. * Resume driving when surgeon permits. * Do not make important decisions or sign legal documents today. * Call surgeon for: 1. Temperature elevations greater than 101 degrees F. 2. Uncontrollable pain. 3. Excessive bleeding. 4. Persistent nausea and vomiting. 5. Medication intolerance (nausea, vomiting or rash). * For nausea and vomiting use only clear liquids such as: tea, soda, bouillon until nausea subsides, then gradually increase diet as tolerated. * If you have any concerns or questions, call your surgeon's office. If physician is unavailable and it is an emergency, call 911 or go to the nearest emergency room. Instructions Activity Recommendations: limitations as noted below Recommended Home Diet: resume previous diet Allergies: Coded Allergies: Penicillins (Verified Allergy, Unknown, 08/28/16) Provider Instructions ACTIVITY RECOMMENDATIONS: Resume activities as tolerated with no limitations unless specified. __ No lifting over __ pounds for 24 hours. __ Do not engage in vigorous exercise, sexual activity, or sports for 24 hours. __ Do not drive or operate any motorized equipment for 24 hours. __ You may return to work/school tomorrow. Follow Up Follow-up with: Dr Johnson/ Cardiology as scheduled Garrett Christopher Recommendations: Call your doctor if: * Temperature above 101 degrees * Pain not relieved by pain medicine ordered * There is increased drainage or redness from any incision * You have any unanswered questions or concerns. Your Doctors Instructions noted above were prepared by provider Patricio Johnson. Patient Signature Section: Patient Instructions Signature Page Shahid Paolmino Patient (or Guardian) Signature/Date: I have read and understand the instructions given to me by my caregivers. Caregiver/RN/Doctor Signature/Date: The above-named patient and/or guardian has received patient instructions on this date. + Original Patient Signature Page (only) stays with chart. Please make copy for patient.
[2016-09-25 09:15] VITALS: BP 115/70; PULSE 79; O2SAT 96
--- NOTE | 2016-09-25 09:33 | Anesthesiology Progress Note ---
Anesthesia Post Op Note Date & Time Sep 25, 2016 at 09:33 Vital Signs Pain Intensity: 0 Vital Signs Past 12 Hours Date Time Temp Pulse Resp B/P Pulse Ox O2 Delivery O2 Flow Rate FiO2 09/25/16 09:15 79 16 115/70 96 Room Air 09/25/16 09:05 77 16 106/69 94 Room Air 09/25/16 09:00 78 16 108/66 93 Room Air 09/25/16 08:45 79 16 97/67 93 Room Air 09/25/16 08:30 77 16 102/63 93 Room Air 09/25/16 08:20 76 16 99/66 93 Room Air 09/25/16 08:10 79 16 96/64 92 Room Air 09/25/16 08:00 78 16 98/67 97 Nasal Cannula 2 09/25/16 07:56 103 16 108/86 97 Nasal Cannula 4 09/25/16 07:51 98 16 105/75 98 Nasal Cannula 4 09/25/16 07:48 96 16 99/73 98 Nasal Cannula 4 09/25/16 07:45 103 16 92/71 97 Nasal Cannula 4 09/25/16 07:05 36.7 105 16 98/47 93 Room Air Notes Mental Status: alert / awake / arousable, participated in evaluation Pt Amnestic to Procedure: Yes Nausea / Vomiting: adequately controlled Pain: adequately controlled Airway Patency, RR, SpO2: stable & adequate BP & HR: stable & adequate Hydration State: stable & adequate Anesthetic Complications: no major complications apparent
--- NOTE | 2016-09-26 09:30 | CARDIOVERSION ---
DATE OF OPERATION: 09/26/2016 INDICATIONS: Atrial fibrillation with rapid ventricular response poorly tolerated. PROCEDURE: After the procedure and risks were explained in detail to the patient informed consent was obtained. The patient was sedated through anesthesia consultation with Dr. Gomez. A single synchronized electrical cardioversion was performed using 150 joule biphasic countershock with successful conversion to sinus rhythm. Post procedure patient tolerated well and after a period of observation was discharged to home on same medications. EKG post cardioversion revealed sinus rhythm with a nonspecific intraventricular conduction delay, rate 82, QT corrected 481. I attest to the content of the Intraoperative Record and any orders documented therein. Any exceptio ns are noted below.
== END | disposition home or self-care (01) ==
LOC: C.CATH 06:27
PROVIDERS: ATTEND Internal Medicine Cardiovascular Disease
DX: I48.0 Paroxysmal atrial fibrillation (principal); I42.8 Other cardiomyopathies; I50.9 Heart failure, unspecified; G47.30 Sleep apnea, unspecified; Z88.0 Allergy status to penicillin

== ENCOUNTER 2016-09-26 06:16 | Emergency (ER) | payer OTHER ==
[~2016-09-26] VITALS: Ht 180.3 cm; Wt 115.5 kg
[~2016-09-26 06:16] MED LIST changes: -KETAMINE HCL INJ 50 MG/ML 10 ML VIAL ONE; -LIDOCAINE HCL 2% 2 ML VIAL (20MG/ML) ONE; -LSN5 PO; -MIDAZOLAM HCL 1 MG/ML 2ML VIAL ONE; -PROPOFOL IV EMULSION 10 MG/ML 20 ML VIAL IV ONE; -TPRSR25 PO
[2016-09-26 06:20] VITALS: TEMP 37; Ht 180.3 cm; Wt 115.5 kg
[2016-09-26 06:29] VITALS: O2SAT 88
--- NOTE | 2016-09-26 06:49 | EMERGENCY ROOM VISIT NOTE ---
History Report prepared by Andrea: Arely Yang Under the Supervision of: Dr. Quintin Stone M.D. First contact with patient: 06:39 Chief Complaint: SHORTNESS OF BREATH Stated Complaint: SHORTNESS OF BREATH,RETAINING FLUID,HEART RATE UP History of Present Illness The patient is a 41 year old male who presents to the Emergency Room with complaints of persistent shortness of breath starting yesterday. The patient also complains of a cough with red sputum and some abdominal pain. He reports tachycardia. The patient was cardioverted yesterday for concerns about A-Fib. He is not on oxygen at home. The patient denies fever, chills, chest pain, or any other complaints. Source of History: patient Onset: yesterday Position: other (global) Quality: other (shortness of breath) Timing: other (persistent) Associated Symptoms: + abdominal pain, + cough, No chest pain, No chills, No fevers Review of Systems See HPI for pertinent positives & negatives. A total of 10 systems reviewed and were otherwise negative. Past Medical & Surgical Medical Problems: (1) Acute viral myocarditis (2) Atrial fibrillation (3) Atrial fibrillation with RVR (4) Cardiomegaly (5) CHF (congestive heart failure) (6) Psoriasis Surgical Problems: (1) S/P ACL repair Family History Heart disease Social History Smoking Status: Never Smoker Alcohol Use: occasionally Drug Use: none Housing Status: lives with family Occupation Status: disabled Current/Historical Medications Scheduled Allopurinol (Zyloprim), 100 MG PO DAILY Amiodarone Hcl (Cordarone), 400 MG PO DAILY Digoxin (Digoxin), 2 TABS PO DAILY Folic Acid (Folvite), 1 TAB PO DAILY NONE ON M/THU Furosemide (Lasix), 40 MG PO DAILY Lisinopril (Prinivil), 10 MG PO DAILY Magnesium Oxide (Mag-Ox), 400 MG PO DAILY Metoprolol Succ (Toprol Xl) (Toprol-Xl), 25 MG PO BID Potassium Chloride (Micro-K Ext Rel), 10 MEQ PO BID Prednisone (Prednisone), 1 TAB PO DAILY Rivaroxaban (Xarelto), 20 MG PO DAILY Spironolactone (Aldactone), 25 MG PO DAILY Allergies Coded Allergies: Penicillins (Verified Allergy, Unknown, 09/26/16) Physical Exam Vital Signs Date Time Temp Pulse Resp B/P Pulse Ox O2 Delivery O2 Flow Rate FiO2 09/26/16 09:43 92 30 115/76 90 Nasal Cannula 2.0 09/26/16 08:25 97 34 113/94 97 BiPAP 09/26/16 08:20 96 28 132/87 98 BiPAP 09/26/16 08:15 99 23 133/93 98 BiPAP 09/26/16 08:10 109 30 140/99 97 BiPAP 09/26/16 08:05 98 31 136/95 97 BiPAP 09/26/16 08:00 99 25 142/90 99 BiPAP 09/26/16 07:55 104 26 131/93 99 BiPAP 09/26/16 07:50 100 29 138/91 99 BiPAP 09/26/16 07:48 100 96 09/26/16 07:45 112 19 117/95 09/26/16 07:41 135/81 09/26/16 07:40 101 25 98 BiPAP 09/26/16 07:39 98 09/26/16 07:35 99 21 131/89 96 BiPAP 09/26/16 07:30 133/91 09/26/16 07:29 139/94 09/26/16 07:26 109 23 89 Nasal Cannula 6.0 09/26/16 07:25 145/102 09/26/16 07:21 106 31 90 Nasal Cannula 6.0 09/26/16 07:16 100 36 91 Nasal Cannula 6.0 09/26/16 07:11 99 27 92 Nasal Cannula 6.0 09/26/16 07:09 140/99 09/26/16 07:06 103 20 95 Nasal Cannula 6.0 09/26/16 07:01 103 31 92 Nasal Cannula 6.0 09/26/16 07:00 134/90 09/26/16 06:56 105 36 91 Nasal Cannula 6.0 09/26/16 06:51 105 26 90 Nasal Cannula 6.0 09/26/16 06:46 103 35 91 Nasal Cannula 6.0 09/26/16 06:41 109 24 89 Nasal Cannula 6.0 09/26/16 06:36 106 33 90 Nasal Cannula 6.0 09/26/16 06:31 108 28 90 Nasal Cannula 6.0 09/26/16 06:30 137/102 09/26/16 06:30 83 Room Air 09/26/16 06:29 88 Nasal Cannula 4.0 09/26/16 06:27 90 Nasal Cannula 4.0 09/26/16 06:25 136/90 09/26/16 06:20 37.0 109 32 137/90 85 Room Air Physical Exam GENERAL: Patient is acutely short of breath and in acute distress. HEAD: Normocephalic atraumatic EYES: Ocular movements intact pupils equal and react to light OROPHARYNX mucous membranes are moist no exudates present no erythema or edema present NECK: Supple no nuchal rigidity CHEST: Good equal expansion LUNGS: Clear and equal to auscultation CARDIAC: Normal S1 and S2 ABDOMEN: Soft nontender no guarding BACK: No CVA tenderness EXTREMITIES: No pain upon palpation normal muscle strength in all groups no clubbing cyanosis or edema NEURO: Patient is following commands is answering questions appropriately. Alert and oriented x3 Cranial Nerves 2-12 grossly intact Medical Decision & Procedures ER Provider Diagnostic Interpretation: X-ray results as stated below per interpretation by me and the radiologist: CHEST ONE VIEW PORTABLE CLINICAL HISTORY: Atypical chest pain and cough COMPARISON STUDY: 09/11/2016 FINDINGS: The heart is enlarged. There is a left subclavian pacemaker/defibrillator present. Since the prior study, the patient has developed right middle lower lung zone airspace opacities. There is also a nodular opacity within the right suprahilar region. The findings are likely inflammatory. Asymmetric edema could appear similar. Clinical and radiographic follow-up is recommended.[ IMPRESSION: Cardiomegaly. Interval development of right lung airspace opacities. While likely inflammatory, asymmetric pulmonary edema could appear similar. Clinical and radiographic follow-up is recommended Electronically signed by: Dre Bradford M.D. 09/26/2016 7:04 AM Dictated Date/Time: 09/26/2016 7:03 AM Laboratory Results 09/26/16 06:30 Red Blood Count 4.73, Mean Corpuscular Volume 89.6, Mean Corpuscular Hemoglobin 29.6, Mean Corpuscular Hemoglobin Concent 33.0, Mean Platelet Volume 9.7, Neutrophils (%) (Auto) 85.2, Lymphocytes (%) (Auto) 6.9, Monocytes (%) (Auto) 6.9, Eosinophils (%) (Auto) 0.4, Basophils (%) (Auto) 0.2, Neutrophils # (Auto) 15.24, Lymphocytes # (Auto) 1.23, Monocytes # (Auto) 1.24, Eosinophils # (Auto) 0.07, Basophils # (Auto) 0.03 09/26/16 06:30 Test 09/26/16 06:30 09/26/16 06:56 White Blood Count 17.88 K/uL (4.8-10.8) Red Blood Count 4.73 M/uL (4.7-6.1) Hemoglobin 14.0 g/dL (14.0-18.0) Hematocrit 42.4 % (42-52) Mean Corpuscular Volume 89.6 fL (80-100) Mean Corpuscular Hemoglobin 29.6 pg (25-34) Mean Corpuscular Hemoglobin Concent 33.0 g/dl (32-36) Platelet Count 310 K/uL (130-400) Mean Platelet Volume 9.7 fL (7.4-10.4) Neutrophils (%) (Auto) 85.2 % Lymphocytes (%) (Auto) 6.9 % Monocytes (%) (Auto) 6.9 % Eosinophils (%) (Auto) 0.4 % Basophils (%) (Auto) 0.2 % Neutrophils # (Auto) 15.24 K/uL (1.4-6.5) Lymphocytes # (Auto) 1.23 K/uL (1.2-3.4) Monocytes # (Auto) 1.24 K/uL (0.11-0.59) Eosinophils # (Auto) 0.07 K/uL (0-0.5) Basophils # (Auto) 0.03 K/uL (0-0.2) RDW Standard Deviation 48.8 fL (36.4-46.3) RDW Coefficient of Variation 15.1 % (11.5-14.5) Immature Granulocyte % (Auto) 0.4 % Immature Granulocyte # (Auto) 0.07 K/uL (0.00-0.02) Prothrombin Time 10.5 SECONDS (9.0-12.0) Prothromb Time International Ratio 1.0 (0.9-1.1) Anion Gap 11.0 mmol/L (3-11) Est Creatinine Clear Calc Drug Dose 124.3 ml/min Estimated GFR () 107.1 Estimated GFR (Non- 92.4 BUN/Creatinine Ratio 18.5 (10-20) Calcium Level 9.2 mg/dl (8.5-10.1) Total Bilirubin 0.5 mg/dl (0.2-1) Direct Bilirubin 0.1 mg/dl (0-0.2) Aspartate Amino Transf (AST/SGOT) 13 U/L (15-37) Alanine Aminotransferase (ALT/SGPT) 24 U/L (12-78) Alkaline Phosphatase 83 U/L (45-117) Total Creatine Kinase 62 U/L (39-308) Creatine Kinase MB 0.9 ng/ml (0.5-3.6) Creatine Kinase MB Ratio 1.5 (0-3.0) Troponin I 0.035 ng/ml (0-0.045) Pro-B-Type Natriuretic Peptide 1752 pg/ml (0-450) Total Protein 7.3 gm/dl (6.4-8.2) Albumin 3.5 gm/dl (3.4-5.0) Lipase 195 U/L (73-393) Influenza Type A (RT-PCR) Neg for Influ A (NEG) Influenza Type A Antigen Neg for Influ A (NEG) Influenza Type B Antigen Neg for Influ B (NEG) Influenza Type B (RT-PCR) Neg for Influ B (NEG) Labs reviewed by ED physician. Medications Administered Medications (Trade) Dose Ordered Sig/Hector Route Start Time Stop Time Status Last Admin Dose Admin Furosemide (Lasix Inj) 40 mg NOW STAT IV 09/26/16 06:56 09/26/16 06:57 DC 09/26/16 07:09 40 MG Ondansetron HCl 4 mg 4 mg NOW STAT IV 09/26/16 06:58 09/26/16 06:59 DC 09/26/16 07:09 4 MG Nitroglycerin/ Dextrose (Nitroglycerin/ D5w 100 Mcg/Ml) 500 ml @ 0 mls/hr Q0M STAT IV 09/26/16 07:10 09/26/16 07:11 DC 09/26/16 07:21 3 MLS/HR Morphine Sulfate (MoRPHine SULFATE INJ) 8 mg NOW STAT IV 09/26/16 07:12 09/26/16 07:13 DC 09/26/16 07:29 8 MG ECG Indication: SOB/dyspnea Rate (beats per minute): 110 Rhythm: sinus tachycardia Findings: no acute ischemic change, no ectopy Comparison ECG Date: September 15, 2016 Change: A-Fib has changed to sinus tachycardia when compared to September 15, 2016. ED Course 0639: Past medical records reviewed. The patient was evaluated in room A10. A complete history and physical examination was performed. 0656: Lasix Inj 40 mg IV 0658: Zofran Inj 4 mg IV 0710: Nitroglycerin/Dextrose 500 ml @ 0 mls/hr IV 0712: Morphine Sulfate 8 mg IV 0718: I discussed the patient's case with Dr. Valencia, professional golf tournament player with [facility]. He recommended transferring the patient to [facility]. He also recommended flying the patient and if it is not possible then stabilize him further. 0733: The patient will be transferred to [facility] for CHF exacerbation as well as him being a heart transplant candidate. Reason for transfer is the transplant team. Reason to fly is the instability of the patient along with rapidly deteriorating weather conditions. Risks include helicopter crash and decompensation in route. All risks and benefits were explained to the patient and he is agreeable to the treatment plan. Orders for the transfer include BiPAP and nitroglycerin drip. 0756: [facility] was aborted due to weather. The patient and his family was updated and they are agreeable to the revised transfer plan. Medical Decision Differential diagnosis: Etiologies such as infections, reactive airway disease, pneumonia, pneumothorax , COPD, CHF, cardiac ischemia, pulmonary embolism, musculoskeletal, gastrointestinal, as well as others were entertained. This is a 41-year-old male well-known for his congestive heart failure. He is on the heart transplant list. He was recently admitted to [facility] twice for just for failure exacerbation's. The patient was given Lasix and placed on a nitro drip and placed on BiPAP here in the emergency department. I did discuss the case with [facility] cardiology who felt that the patient would best be served by being transferred to [place]. I did discuss this case with parents. Due to changing weather conditions this case was discussed with [facility]. There were en route. The patient however had to abort due to weather. This point the patient was further stabilized here in the emergency department. He was transferred via ALS. I explained the risks and benefits of being transferred including MVA, helicopter crash, decompensation en route. The patient will be placed on BiPAP and continued on Nitropaste in the ambulance. The patient was also given Lasix in the emergency department. He refused a Georges catheter. Patient parents were in agreement with the treatment plan. Consults Time Called: 714 Consulting Physician: Dr. Valencia, professional golf tournament player with [facility] Returned Call: 07 I discussed the patient's case with Dr. Valencia, professional golf tournament player with [facility]. He recommended transferring the patient to [facility]. He also recommended flying the patient and if it is not possible then stabilize him further. Impression Primary Impression: Hypoxia Additional Impression: CHF exacerbation Critical Care I have personally spent greater than 90 minutes of critical care time in the direct management of this patient. This includes bedside care, interpretation of diagnostic studies, and testing, discussion with consultants, patient, and family members, and other required patient management activities. This 90 minutes is in excess of all separately billable procedures. Scribe Attestation The scribe's documentation has been prepared under my direction and personally reviewed by me in its entirety. I confirm that the note above accurately reflects all work, treatment, procedures, and medical decision making performed by me. Departure Information Dispostion Transfer Acute Care Facility Referrals Isrrael Mahmood M.D. (PCP) Patient Instructions [facility] Problem Qualifiers Additional Impression: CHF exacerbation Congestive heart failure type: unspecified congestive heart failure type Qualified Codes: I50.9 - Heart failure, unspecified
[2016-09-26 06:54] LABS: BASO % 0.2 %; BASO ABS # 0.03 K/uL (0-0.2); COMPLETE YES; EOS % 0.4 %; HEMATOCRIT 42.4 % (42-52); IG% 0.4 %; LYMPH % 6.9 %; LYMPH ABS # 1.23 K/uL (1.2-3.4); MEAN CELL VOLUME 89.6 fL (80-100); MEAN CORPUSCULAR HEMOGLOBIN 29.6 pg (25-34); MEAN PLATELET VOLUME 9.7 fL (7.4-10.4); MONO % 6.9 %; NEUT % 85.2 %; PLATELET COUNT 310 K/uL (130-400); RED BLOOD COUNT 4.73 M/uL (4.7-6.1); WHITE BLOOD COUNT 17.88 K/uL (4.8-10.8)
[2016-09-26] MEDS ORDERED: FUROSEMIDE 40 MG/4 ML VIAL IV STA (06:56)
[2016-09-26] MEDS ORDERED: ONDANSETRON INJ 2 MG/ML 2 ML VIAL IV STA (06:58)
[2016-09-26 07:00] LABS: PROTHROMBIN TIME (PATIENT) 10.5 SECONDS (9.0-12.0)
[2016-09-26 07:03] LABS: BUN/CREATININE RATIO 18.5 (10-20); CALCIUM 9.2 mg/dl (8.5-10.1); POTASSIUM 3.9 mmol/L (3.5-5.1)
--- NOTE | 2016-09-26 07:06 | DIAGNOSTIC IMAGING REPORT ---
CHEST ONE VIEW PORTABLE CLINICAL HISTORY: Atypical chest pain and cough COMPARISON STUDY: 09/11/2016 FINDINGS: The heart is enlarged. There is a left subclavian pacemaker/defibrillator present. Since the prior study, the patient has developed right middle lower lung zone airspace opacities. There is also a nodular opacity within the right suprahilar region. The findings are likely inflammatory. Asymmetric edema could appear similar. Clinical and radiographic follow-up is recommended.[ IMPRESSION: Cardiomegaly. Interval development of right lung airspace opacities. While likely inflammatory, asymmetric pulmonary edema could appear similar. Clinical and radiographic follow-up is recommended Electronically signed by: Dre Bradford M.D. 09/26/2016 7:04 AM Dictated Date/Time: 09/26/2016 7:03 AM
[2016-09-26 07:09] LABS: CKMB/CK RATIO 1.5 (0-3.0)
[2016-09-26] MEDS ORDERED: NITROGLYCERIN/D5W 100 MCG/ML 500 ML IV STA (07:10)
[2016-09-26] MEDS ORDERED: MoRPHine SULFATE 10 MG/ML CARP/VIAL IV STA (07:12)
[2016-09-26 07:48] VITALS: PULSE 100; O2SAT 96
[2016-09-26] MEDS ORDERED: ACETAMINOPHEN 500 MG TAB PO STA (07:57)
[2016-09-26 09:15] LABS: INFLUENZA A PCR Neg for Influ A (NEG); INFLUENZA B PCR Neg for Influ B (NEG)
[2016-09-26 09:43] VITALS: BP 115/76; PULSE 92; O2SAT 90
[2016-10-14] MEDS ORDERED: AMIO200T4 PO (07:02)
== END 2016-09-26 09:50 | disposition short-term general hospital (02) ==
LOC: C.EDB 06:17 → C.EDA 09:50
DX: R09.02 Hypoxemia (principal); I50.9 Heart failure, unspecified; R00.0 Tachycardia, unspecified; I48.91 Unspecified atrial fibrillation; I51.7 Cardiomegaly; L40.9 Psoriasis, unspecified

== ENCOUNTER → 2016-10-14 | Day surgery (SDC) | payer OTHER ==
[~2016-10-14] VITALS: Ht 182.9 cm; Wt 113.0 kg
[2016-10-14 06:51] VITALS: BP 112/95; PULSE 92; TEMP 36.6; O2SAT 95; Ht 182.9 cm; Wt 113.0 kg
[2016-10-14 07:25] VITALS: BP 112/90; PULSE 76; O2SAT 98
[2016-10-14 07:26] VITALS: BP 110/86; PULSE 73; O2SAT 98
[2016-10-14 07:30] VITALS: BP 100/45; PULSE 73; O2SAT 98
--- NOTE | 2016-10-14 07:38 | Cardiology Procedure Brief Nt ---
Preliminary Cardiology Note Procedure Date Oct 14, 2016. Pre-Procedure Diagnosis Atrial fibrillation Post-Procedure Diagnosis Successful synchronized electrical cardioversion Procedure(s) Performed Successful synchronized electrical cardioversion Display Specialist Alex Engineering Technologist(s) None Estimated Blood Loss None Preliminary Findings Successful synchronized electrical cardioversion was performed using 150 Joule biphasic countershock Recommendations Continued medical management Fluids (cc crystalloids) 50 Specimens None Anesthesia Per Dr Hartman Complication(s) None Disposition Inside Sales Consultant holding Area
--- NOTE | 2016-10-14 07:43 | Discharge Instructions ---
Discharge Instructions Procedure Procedure Date: Oct 14, 2016. Reason for Visit: W/Anes;A-Fib;Dr Johnson To Do. Discharge Discharge Date: Oct 14, 2016. Last Recorded Wt (Kilograms): 113 Anesthesia Post Anesthesia Instructions: If you have had General Anesthesia or IV Sedation: * Do not drive today. * Resume driving when surgeon permits. * Do not make important decisions or sign legal documents today. * Call surgeon for: 1. Temperature elevations greater than 101 degrees F. 2. Uncontrollable pain. 3. Excessive bleeding. 4. Persistent nausea and vomiting. 5. Medication intolerance (nausea, vomiting or rash). * For nausea and vomiting use only clear liquids such as: tea, soda, bouillon until nausea subsides, then gradually increase diet as tolerated. * If you have any concerns or questions, call your surgeon's office. If physician is unavailable and it is an emergency, call 911 or go to the nearest emergency room. Instructions Activity Recommendations: limitations as noted below Recommended Home Diet: resume previous diet Allergies: Coded Allergies: Penicillins (Verified Allergy, Unknown, 09/26/16) Provider Instructions ACTIVITY RECOMMENDATIONS: Resume activities as tolerated with no limitations unless specified. __ No lifting over __ pounds for 24 hours. __ Do not engage in vigorous exercise, sexual activity, or sports for 24 hours. __ Do not drive or operate any motorized equipment for 24 hours. __ You may return to actitiies tomorrow. _ Follow Up Follow-up with: Dr Johnson as scheduled Garrett Harty Recommendations: Call your doctor if: * Temperature above 101 degrees * Pain not relieved by pain medicine ordered * There is increased drainage or redness from any incision * You have any unanswered questions or concerns. Your Doctors Instructions noted above were prepared by provider Patricio Johnson. Patient Signature Section: Patient Instructions Signature Page Shahid Palomino Patient (or Guardian) Signature/Date: I have read and understand the instructions given to me by my caregivers. Caregiver/RN/Doctor Signature/Date: The above-named patient and/or guardian has received patient instructions on this date. + Original Patient Signature Page (only) stays with chart. Please make copy for patient.
--- NOTE | 2016-10-14 08:25 | Anesthesiology Progress Note ---
Anesthesia Post Op Note Date & Time Oct 14, 2016 at 08:24 Vital Signs Pain Intensity: 0 Vital Signs Past 12 Hours Date Time Temp Pulse Resp B/P Pulse Ox O2 Delivery O2 Flow Rate FiO2 10/14/16 08:15 79 16 105/74 93 Room Air 110/78 10/14/16 08:00 79 16 112/70 93 Room Air 10/14/16 07:55 82 16 105/72 95 Room Air 10/14/16 07:45 76 16 101/77 95 Room Air 10/14/16 07:35 76 16 100/68 95 Room Air 10/14/16 07:30 73 18 100/45 98 Nasal Cannula 5 10/14/16 07:26 73 18 110/86 98 Nasal Cannula 5 10/14/16 07:25 76 18 112/90 98 Nasal Cannula 5 10/14/16 06:51 36.6 92 16 112/95 95 Room Air Notes Mental Status: alert / awake / arousable, participated in evaluation Pt Amnestic to Procedure: Yes Nausea / Vomiting: adequately controlled Pain: adequately controlled Airway Patency, RR, SpO2: stable & adequate BP & HR: stable & adequate Hydration State: stable & adequate Anesthetic Complications: no major complications apparent
[2016-10-14 08:30] VITALS: BP 105/79; PULSE 82; O2SAT 95
--- NOTE | 2016-10-15 01:44 | CARDIOVERSION ---
DATE OF OPERATION: 10/14/2016 SYNCHRONIZED ELECTRICAL CARDIOVERSION REPORT: INDICATIONS: Atrial fibrillation, persistent. PROCEDURE: Synchronized electrical cardioversion. BRIEF HISTORY: The patient is a 41-year-old male, with a history of dilated idiopathic cardiomyopathy with class III congestive heart failure, poor tolerance of atrial fibrillation referred for synchronized electrical cardioversion after recent amiodarone loading. PROCEDURE: After the procedure and risks were explained in detail to the patient informed consent was obtained. The patient was sedated via anesthesia consult with Dr. Hartman and subsequently underwent synchronized electrical cardioversion with single 150 joule biphasic countershock with successful conversion to sinus rhythm. Post procedure, the patient was aroused having tolerated the well. EKG reflected sinus rhythm with nonspecific ST segment changes, QT corrected to 464. Borderline intraventricular conduction delay. RECOMMENDATIONS: The patient should be continued on current medical therapy. Discharge to home after observation. Follow up with Dr. Johnson as scheduled. I attest to the content of the Intraoperative Record and any orders documented therein. Any exceptio ns are noted below.
== END | disposition home or self-care (01) ==
LOC: C.CATH 06:35
PROVIDERS: ATTEND Internal Medicine Cardiovascular Disease
DX: I48.1 Persistent atrial fibrillation (principal); I42.0 Dilated cardiomyopathy; Z95.810 Presence of automatic (implantable) cardiac defibrillator

== ENCOUNTER → 2016-10-29 | Outpatient (CLI) | payer OTHER ==
--- NOTE | 2016-10-30 06:27 | SPLIT NIGHT TECHNICIAN REPORT ---
[facility] Split Night Polysomnogram - Student Financial Services Counselor Report Study date: 10/29/2016 Referring Physician: Bakari MO M.D. Name: DELFINA PALOMINO Student Financial Services Counselor: [facility] Date of : 1975 Height: 41 years, Height 6' 0" Sex: Male Weight: 251 lbs Age: 41 Neck Circum: 17 in BMI: Medications: 34.04 VIT D3, AMIODARONE 200 MG, FUROSEMIDE 40 MG, DIGOXIN 125 MCG, LISINOPRIL 10 MG, PREDNISONE 20 MG, ALLOPURINOL 100 MG, METOPROLOL 25 MG, FOLIC ACID, SPIRONOLACTONE 25 MG, POTASSIUM CHLORIDE 10 MEQ, XARELTO 20 MG, MAGESIUM OXIDE 400 MG Patient History 41 yr-old male here for a baseline/split study. He has had previous sleep testing. He was found to be positive for severe NEAL but was intolerant to CPAP. He is back to assess his NEAL and start CPAP again due to complications with his heart. His Balm scale is 9. The test was started on room air. ETCO2 testing is included in this study. Room 1 Parameters Monitored NPSG: E1-M2, E2-M1, Fp1-M2, Fp2-M1, F3-M2, F4-M2, F4-M1, C3-M2, C4-M2, C4-M1, O1-M2, O2-M2, O2-M1, T3-M2, T4-M1, P3-M2, P4-M1, CHIN1, CHIN2, HR, EKG, Legs, PFLOW, SNOR, FLOW, CFLOW, Tidal Volume, THOR, ABDO, SpO2, PLTH, CPRESS, ETCO2 Wave, ETCO2, pH SLEEP SUMMARY DATA DIAGNOSTIC TREATMENT Lights Out: 10:29:16 PM 1:17:46 AM Lights On: 12:52:16 AM 5:31:16 AM Total Recording Time (TRT): 143.0 min. 253.5 min. Total Sleep Time (TST): 129.5 min. 239.5 min. NREM Time: 129.5 min. 178.0 min. REM Time: 0.0 min. 61.5 min. Sleep Period Time (SPT): 140.0 min. 245.0 min. Sleep Efficiency (SE): 91 % 94 % Sleep Latency: 3.0 min. 8.5 min. Arousal Index: 52.4 6.3 PAP Treatment Levels: 4, 6, 8, 10, 12, 13 * Optimal Pressure(s) SLEEP STAGING DATA DIAGNOSTIC TREATMENT Duration (min) TST % Duration (min) TST % Stage Wake: 13.5 min. -- 14.0 min. -- WASO: 10.5 min. -- 5.5 min. -- NREM: 129.5 min. 100 % 178.0 min. 74 % Stage N1: 33.5 min. 26 % 24.5 min. 10 % Stage N2: 96.0 min. 74 % 138.5 min. 58 % Stage N3: 0.0 min. 0 % 15.0 min. 6 % REM: 0.0 min. 0 % 61.5 min. 26 % POSITIONAL DATA Event Count Index Event Count Index Supine: 191 87.1 50 12.3 Supine NREM: 191 87.1 40 13.1 Supine REM: N/A N/A 10 10 Non-Supine: N/A N/A N/A N/A Non-Supine NREM: N/A N/A N/A N/A Non-Supine REM: N/A N/A N/A N/A AROUSAL SUMMARY DATA: Event Count Index Event Count Index Apnea Arousals: 44 27.8 0 1.5 Hypopnea Arousals: 50 23.2 7 1.8 Snore Arousals: 3 1.4 4 1.0 PLM Arousals: 0 0.0 4 1.0 Non-Specific Arousals: 10 4.6 7 1.8 Total Arousals: 113 52.4 25 6.3 MYOCLONUS (PLM) Event Count Index Event Count Index PLM: 7 3.2 19 4.8 PLM AROUSAL: 0 0.0 4 1.0 PLM W/O AROUSAL 7 3.2 15 3.8 PLM W/RESP EVENT 1 0.0 1 0.0 MYOCLONUS (PLM) Event Count Index Event Count Index LM: 3 23.2 46 11.5 LM AROUSAL: 3 1.4 2 0.5 LM W/O AROUSAL LM W/RESP EVENT LM NON SPECIFIC 33 15.3 51 12.8 HEART RATE DATA DIAGNOSTIC TREATMENT Sleep (bpm): 79 66 REM (bpm): N/A 92 NREM (bpm): 87 92 Tachycardia Count: 0 0 Tachycardia Duration: 0.00 0 Bradycardia Count: 0 0 Bradycardia Duration: 0.00 0 DIAGNOSTIC PORTION TREATMENT PORTION RESPIRATORY DATA Event Count Index Event Count Index AHI: -- 87.1 -- 12.3 RDI: -- 88.5 -- 13 Obstructive Apnea: 59 27.3 4 1.0 Central Apnea: 0 0.0 2 0.5 Mixed Apnea: 1 0.5 0 0.0 Hypopnea: 128 59.3 43 10.8 RERA: 3 1.4 1 0.3 Total Apneas: 60 27.8 6 1.5 RESPIRATORY DATA REM NREM SLEEP REM NREM SLEEP Supine Position: Obstructive Apneas: N/A 59 59 0 4 4 Central Apneas: N/A 0 0 1 1 2 Mixed Apneas: N/A 1 1 0 0 0 Hypopneas: N/A 128 128 9 34 43 RERA N/A 3 3 0 1 1 Total Supine Events: N/A 191 191 10 40 50 Supine AHI: N/A 87.1 87.1 10 13.1 12.3 Supine RDI: N/A 88.5 88.5 9.8 13.5 12.5 REM NREM SLEEP REM NREM SLEEP Non-Supine Position: Obstructive Apneas: N/A N/A N/A N/A N/A N/A Central Apneas: N/A N/A N/A N/A N/A N/A Mixed Apneas: N/A N/A N/A N/A N/A N/A Hypopneas: N/A N/A N/A N/A N/A N/A RERA N/A N/A N/A N/A N/A N/A Total Supine Events: N/A N/A N/A N/A N/A N/A Supine AHI: N/A N/A N/A N/A N/A N/A Supine RDI: N/A N/A N/A N/A N/A N/A OXYGEN DESTAURATION DATA: Event Count Index Event Count Index REM Desaturations: N/A N/A 15 14.6 NREM Desaturations: 190 88.0 56 18.9 SNORE DATA DIAGNOSTIC TREATMENT Snore Time: 9.7 1:26:16 AM Snore TST%: 3 5 Snore Arousal Count: 3 4 Snore Arousal Index: 1.4 1.0 Desaturation Event Summary: Minimum %SpO2 Event Count Mean/Min/Max Duration(sec.) Desaturation Index % Time In Bed > 90 249 25.6 / 9.0 / 58.5 59.6 63.4 86 - 90 57 22.5 / 9.3 / 54.5 37.2 23.3 81 - 85 2 19.9 / 17.3 / 22.5 3.1 9.7 76 - 80 0 N/A 0.0 3.6 71 - 75 0 N/A 0.0 0.0 66 - 70 0 N/A 0.0 0.0 61 - 65 0 N/A 0.0 0.0 56 - 60 0 N/A 0.0 0.0 51 - 55 0 N/A 0.0 0.0 < 50 0 N/A 0.0 0.0 OXYGEN SATURATION DATA DIAGNOSTIC TREATMENT SpO2 Mean Sleep: 87 % 92 % SpO2 Mean REM: N/A % 92 % SpO2 Mean NREM: 87 % 92 % SpO2 Minimum Sleep: 75 % 82 % SpO2 Minimum REM: N/A % 84 % SpO2 Minimum NREM: 75 % 82 % Time Below 90% (TST): 77.9 29.6 Time Below 88% (TST): 61.5 6.9 Total REM NREM Awake <50% 0.0 min. 0.0 min. 0.0 min. 0.0 min. 51 - 60% 0.0 min. 0.0 min. 0.0 min. 0.0 min. 61 - 70% 0.0 min. 0.0 min. 0.0 min. 0.0 min. 71 - 80% 14.4 min. 0.0 min. 13.9 min. 0.5 min. 81 - 90% 130.2 min. 10.7 min. 115.0 min. 4.4 min. 91 - 100% 250.6 min. 50.8 min. 178.5 min. 21.2 min. Average 91 92 90 92 Minimum SpO2 75 84 75 78 Desaturation Event Index 40.3 14.6 48.0 15.3 # Desat. Events below 89% 229 7 218 4 Time(%) with Saturation below 89% 21.5 0.9 19.9 0.7 Time(min.) with Saturation below 89% 84.9 3.6 78.6 2.6 Recording Student Financial Services Counselor Comments: Mr. Palomino slept only in the supine position. Some cardiac arrhythmias were noted (please refer to the printout). No bruxism noted. Snoring was noted and scored as a 4 on a scale of 1 through 5. (0=no snoring, 5=snoring loud enough to be heard through a closed door or down the shaver way) At 1:10 am, he met specific Split-Night criteria during the diagnostic portion of this study. CPAP was initiated at +4 CMH2O and up-titrated to a level of +13 CMH2O, Cflex 3 which nearly eliminated all respiratory events and snoring. A Mirage FX Soft edge nasal mask size wide from [employer] was used during titration He awoke to use the restroom one time during the night. Mr. Palomino stated that he slept about the same as usual. The final report will be interpreted and signed by a sleep physician. The completed physician report will then be placed in the patient medical record. Therapy Event: Therapy (cm H20) 0 4 6 8 10 12 13 Total Time at Pressure (min.) 143.0 14.3 20.2 24.7 10.6 120.9 62.9 TST at Pressure (min.) 129.5 5.8 20.2 24.7 10.6 119.9 58.4 # Periods 1 1 1 1 1 1 1 Sleep Onset (min.) 3.0 8.5 0.0 0.0 0.0 0.0 0.0 REM Onset (min.) N/A N/A N/A N/A 6.9 0.0 8.4 Sleep Efficiency % 90 40 100 100 100 99 92 Wakefulness (%) 9.4 59.5 0.0 0.0 0.0 0.8 7.2 Wakefulness (min.) 13.5 8.5 0.0 0.0 0.0 1.0 4.5 NREM 1 (%) 23.4 40.5 16.0 0.0 0.0 6.2 12.7 NREM 1 (min.) 33.5 5.8 3.2 0.0 0.0 7.5 8.0 NREM 2 (%) 67.1 0.0 84.0 100.0 65.1 56.7 34.1 NREM 2 (min.) 96.0 0.0 17.0 24.7 6.9 68.6 21.4 NREM 3 (%) 0.0 0.0 0.0 0.0 0.0 12.4 0.0 NREM 3 (min.) 0.0 0.0 0.0 0.0 0.0 15.0 0.0 REM (%) 0.0 0.0 0.0 0.0 34.9 23.8 46.1 REM (min.) 0.0 0.0 0.0 0.0 3.7 28.8 29.0 # Arousals 113 6 5 0 0 9 5 Arousal Index 52.4 62.3 14.9 0.0 0.0 4.5 5.1 # Snore 489 45 259 30 13 75 44 Snore Index 226.6 467.0 770.5 73.0 73.7 37.5 45.2 AHI 87.1 62.3 62.5 7.3 34.0 5.5 2.1 AHI Supine 87.1 62.3 62.5 7.3 34.0 5.5 2.1 AHI Non-Supine N/A N/A N/A N/A N/A N/A N/A NREM AHI 87.1 62.3 62.5 7.3 17.4 3.3 4.1 REM AHI N/A N/A N/A N/A 64.9 12.5 0.0 RDI 88.5 72.6 62.5 7.3 34.0 5.5 2.1 # Obstructive 59 0 1 1 0 2 0 # Central Ap 0 1 0 0 0 1 0 # Mixed 1 0 0 0 0 0 0 # Hypopneas 128 5 20 2 6 8 2 RERAS 3 1 0 0 0 0 0 Total Respiratory Events 191 7 21 3 6 11 2 Time Below SpO2 89.00% (min.) 69.5 1.3 4.3 1.9 2.2 2.1 1.0 Mean NREM SpO2 (%) 87 90 90 90 92 93 93 Mean REM SpO2 (%) N/A N/A N/A N/A 89 92 93 Mean Sleep SpO2 (%) 87 90 90 90 91 93 93 Min NREM SpO2 (%) 75 85 82 86 88 85 82 Min REM SpO2 (%) N/A N/A N/A N/A 84 86 89 Position Supine (min.) 129.5 5.8 20.2 24.7 10.6 119.9 58.4 Position Non-supine (min.) 0.0 0.0 0.0 0.0 0.0 0.0 0.0 LM Index Sleep 26.4 103.8 56.5 7.3 0.0 11.5 10.3 LM Index NREM 26.4 103.8 56.5 7.3 0.0 13.8 14.3 LM Index REM N/A N/A N/A N/A 0.0 4.2 6.2 Mean Heart Rate (bpm) 79 72 71 68 66 65 65 Min Heart Rate (bpm) 68 56 63 63 54 52 50
--- NOTE | 2016-11-17 11:52 | POLYSOMNOGRAPH REPORT ---
REFERRING PERSON: Dr. Spike Jeter. CAR COUPLER: [place]. Mr. Palomino is a 41-year-old male who has had previous sleep testing and been shown to have severe obstructive sleep apnea. He was intolerant to CPAP, but is willing to use it again if it is necessary. He has had some cardiovascular disease in the interim. His [place] sleepiness scale score in the evening of this study is 9. BMI is 34.04. Following the technical and digital specifications of the [place] [employer] (AASM) a standard diagnostic polysomnogram was performed monitoring EEG, EOG, EMG (chin and leg deviations), oxygen saturation, body position, digital video, respiratory effort and airflow. The sleep Stage and event scoring was based on the AASM Manual for the Scoring of Sleep and Associated Events 2007 edition. Apneas are defined as a drop in the peak thermal sensor excursion by >90% of baseline for at least 10 seconds. Hypopneas were scored using the 4% oxygen desaturation rule (4A-[employer]) and a decrease in the nasal pressure excursions by >30% of baseline for at least 10 seconds. Respiratory effort-related arousal (RERA's) is defined as a sequence of breaths lasting at least 10 seconds characterized by increasing respiratory effort or flattening of the nasal pressure waveform leading to an arousal from sleep when the sequence of breaths does not meet criteria for an apnea or hypopnea. Apnea Hypopnea index (AHI) is defined as the number of apneas and hypopneas occurring in an hour of sleep. Respiratory disturbance index (RDI) is defined as the number of apneas, hypopneas, and RERA's occurring in an hour of sleep. Mr. Palomino did in fact qualify for a split night sleep study. He was observed for 129.5 minutes of sleep time. During that time, he had 26% N1 sleep and 74% N2 sleep. There were 113 arousals from sleep. Ten of these arousals were nonspecific, 3 were due to snoring and the remainders were due to respiratory events. There were 7 periodic limb movements, none of which resulted in arousals during observation. Mean saturation during observation was 87% with desaturations to 75%. There were 59 obstructive apneas, no central and 1 mixed apnea during observation. Additionally, there were 128 hypopnea. Apnea-hypopnea index was 87.1 consistent with severe sleep apnea. Therefore, at 1:00 a.m., this patient was started on CPAP therapy. He used a wide Mirage FX nasal mask for his titration. He was titrated from a CPAP pressure of 4 to a CPAP pressure of 13 over the course of the night. Increasing pressures were needed to prevent apneas, hypopneas and arousals. Some PVCs were noted on EKG monitoring. He was observed on a pressure of 13 for 58.4 minutes of sleep time. Twenty nine of those minutes were spent in supine REM sleep. AHI and RDI on this pressure were both 2.1 and saturations were less than 89% for only 1 minute of recorded time. IMPRESSION AND PLAN: Successful split night sleep study in this patient with very severe sleep apnea and significant nocturnal hypoxemia. He seemed to do well on CPAP therapy with a wide Mirage FX nasal mask at a pressure of 13. This resolved his apnea as well as his hypoxemia. I recommend that he be started on these settings at home and a download from his machine reviewed in 1 month both to check compliance as well as AHI and further pressure adjustments can occur at that time.
== END | disposition home or self-care (01) ==
LOC: C.NEUR 21:00
PROVIDERS: ATTEND Family Medicine
DX: G47.33 Obstructive sleep apnea (adult) (pediatric) (principal); I48.1 Persistent atrial fibrillation; I50.20 Unspecified systolic (congestive) heart failure; I42.9 Cardiomyopathy, unspecified

== ENCOUNTER → 2017-01-07 | Outpatient (CLI) | payer OTHER ==
[2017-01-07 13:09] LABS: BASO % 0.3 %; BASO ABS # 0.03 K/uL (0-0.2); COMPLETE YES; EOS % 1.4 %; HEMATOCRIT 41.6 % (42-52); IG% 0.7 %; LYMPH % 15.9 %; LYMPH ABS # 1.76 K/uL (1.2-3.4); MEAN CELL VOLUME 87.8 fL (80-100); MEAN CORPUSCULAR HEMOGLOBIN 28.9 pg (25-34); MEAN CORPUSCULAR HGB CONC 32.9 g/dl (32-36); MEAN PLATELET VOLUME 9.7 fL (7.4-10.4); NEUT % 74.7 %; PLATELET COUNT 244 K/uL (130-400); RED BLOOD COUNT 4.74 M/uL (4.7-6.1); WHITE BLOOD COUNT 11.07 K/uL (4.8-10.8)
[2017-01-07 13:36] LABS: CREATININE 0.93 mg/dl (0.60-1.40)
[2017-01-07 13:37] LABS: ALT/SGPT 41 U/L (12-78); AST/SGOT 13 U/L (15-37)
[2017-01-07 13:39] LABS: ALKALINE PHOSPHATASE 75 U/L (45-117)
== END | disposition home or self-care (01) ==
LOC: C.LAB1850 11:21
PROVIDERS: ATTEND Internal Medicine Rheumatology
DX: M10.9 Gout, unspecified (principal); L40.50 Arthropathic psoriasis, unspecified; Z79.899 Other long term (current) drug therapy

== ENCOUNTER → 2017-03-12 | Outpatient (CLI) | payer OTHER ==
[2017-03-12 12:37] LABS: BASO % 0.3 %; BASO ABS # 0.02 K/uL (0-0.2); COMPLETE YES; EOS % 2.2 %; HEMATOCRIT 41.9 % (42-52); IG% 0.3 %; LYMPH % 19.3 %; LYMPH ABS # 1.43 K/uL (1.2-3.4); MEAN CELL VOLUME 89.3 fL (80-100); MEAN CORPUSCULAR HEMOGLOBIN 30.5 pg (25-34); MEAN CORPUSCULAR HGB CONC 34.1 g/dl (32-36); MEAN PLATELET VOLUME 9.9 fL (7.4-10.4); MONO % 7.3 %; NEUT % 70.6 %; PLATELET COUNT 233 K/uL (130-400); RED BLOOD COUNT 4.69 M/uL (4.7-6.1); WHITE BLOOD COUNT 7.42 K/uL (4.8-10.8)
[2017-03-12 13:16] LABS: ALT/SGPT 39 U/L (12-78); URIC ACID 5.6 mg/dl (2.6-7.2)
[2017-03-12 13:19] LABS: ALKALINE PHOSPHATASE 91 U/L (45-117); AST/SGOT 20 U/L (15-37)
[2017-03-12 13:48] LABS: ESTIMATED AVERAGE GLUCOSE 272 mg/dl; HA1C FLAG Normal (Normal)
== END | disposition home or self-care (01) ==
LOC: C.LABPVFM 10:13
PROVIDERS: ATTEND Family Medicine
DX: M10.9 Gout, unspecified (principal); Z79.899 Other long term (current) drug therapy; L40.50 Arthropathic psoriasis, unspecified

== ENCOUNTER → 2017-06-11 | Outpatient (CLI) | payer OTHER ==
[~2017-06-11] MED LIST changes: -FOLI1TAB7 PO; +FOLI1TAB8 PO
[2017-06-11 10:42] LABS: BASO % 0.4 %; BASO ABS # 0.03 K/uL (0-0.2); COMPLETE YES; EOS % 2.8 %; HEMATOCRIT 42.2 % (42-52); IG% 0.4 %; LYMPH ABS # 1.52 K/uL (1.2-3.4); MEAN CELL VOLUME 89.2 fL (80-100); MEAN CORPUSCULAR HEMOGLOBIN 29.4 pg (25-34); MEAN CORPUSCULAR HGB CONC 32.9 g/dl (32-36); MEAN PLATELET VOLUME 9.5 fL (7.4-10.4); NEUT % 70.4 %; PLATELET COUNT 269 K/uL (130-400); RED BLOOD COUNT 4.73 M/uL (4.7-6.1); WHITE BLOOD COUNT 8.45 K/uL (4.8-10.8)
[2017-06-11 10:46] LABS: ESTIMATED AVERAGE GLUCOSE 126 mg/dl; HA1C FLAG Normal (Normal)
[2017-06-11 12:23] LABS: ALT/SGPT 40 U/L (12-78); CREATININE 0.99 mg/dl (0.60-1.40)
[2017-06-11 12:33] LABS: ALKALINE PHOSPHATASE 84 U/L (45-117); AST/SGOT 18 U/L (15-37); CREATININE RANDOM URINE 17.5 mg/dl
== END | disposition home or self-care (01) ==
LOC: C.LAB1850 09:59
PROVIDERS: ATTEND Nurse Practitioner Adult Health
DX: R73.09 Other abnormal glucose (principal); E78.5 Hyperlipidemia, unspecified; I10 Essential (primary) hypertension; M10.9 Gout, unspecified; L40.50 Arthropathic psoriasis, unspecified; Z79.899 Other long term (current) drug therapy

== ENCOUNTER → 2017-09-11 | Outpatient (CLI) | payer OTHER ==
[2017-09-11 12:39] LABS: CREATININE 1.03 mg/dl (0.60-1.40)
[2017-09-11 12:51] LABS: HEMOGLOBIN A1C 6.1 % (4.5-5.6)
== END | disposition home or self-care (01) ==
LOC: C.LAB1850 10:42
PROVIDERS: ATTEND Nurse Practitioner Adult Health
DX: E11.9 Type 2 diabetes mellitus without complications (principal); I10 Essential (primary) hypertension; Z79.899 Other long term (current) drug therapy

== ENCOUNTER → 2017-11-23 | Outpatient (CLI) | payer OTHER ==
[2017-11-23 11:07] LABS: BASO % 0.3 %; BASO ABS # 0.02 K/uL (0-0.2); EOS % 2.3 %; EOS ABS # 0.17 K/uL (0-0.5); HEMATOCRIT 41.1 % (42-52); HEMOGLOBIN 13.7 g/dL (14.0-18.0); IG# 0.04 K/uL (0.00-0.02); LYMPH % 20.3 %; LYMPH ABS # 1.48 K/uL (1.2-3.4); MEAN CELL VOLUME 87.3 fL (80-100); MEAN CORPUSCULAR HEMOGLOBIN 29.1 pg (25-34); MEAN CORPUSCULAR HGB CONC 33.3 g/dl (32-36); MEAN PLATELET VOLUME 9.4 fL (7.4-10.4); MONO % 8.4 %; MONO ABS # 0.61 K/uL (0.11-0.59); NEUT % 68.2 %; NEUT ABS # 4.98 K/uL (1.4-6.5); PLATELET COUNT 227 K/uL (130-400); RED CELL DISTRIBUTION WIDTH CV 13.7 % (11.5-14.5); RED CELL DISTRIBUTION WIDTH SD 43.3 fL (36.4-46.3)
[2017-11-23 11:23] LABS: ALBUMIN 4.2 gm/dl (3.4-5.0); ALKALINE PHOSPHATASE 84 U/L (45-117); ALT/SGPT 45 U/L (12-78); AST/SGOT 23 U/L (15-37); BLOOD UREA NITROGEN 10 mg/dl (7-18); CARBON DIOXIDE 28 mmol/L (21-32); CHOLESTEROL 152 mg/dl (0-200); CREATININE 0.98 mg/dl (0.60-1.40); GLUCOSE 123 mg/dl (70-99); LDL CHOLESTEROL CALCULATED 65 mg/dl; POTASSIUM 3.8 mmol/L (3.5-5.1); SODIUM 137 mmol/L (136-145); TOTAL PROTEIN 8.1 gm/dl (6.4-8.2)
== END | disposition home or self-care (01) ==
LOC: C.LAB1850 10:15
PROVIDERS: ATTEND Internal Medicine Rheumatology
DX: M10.9 Gout, unspecified (principal); L40.50 Arthropathic psoriasis, unspecified; Z79.899 Other long term (current) drug therapy; E55.9 Vitamin D deficiency, unspecified; E78.5 Hyperlipidemia, unspecified

== ENCOUNTER 2023-11-04 07:29 | Inpatient (IN) ==
[2023-11-04] MEDS: ASPIRIN CHEW 324 MG PO STA (07:53)
--- NOTE | 2023-11-04 08:08 | XRay Report ---
SINGLE VIEW CHEST CLINICAL HISTORY: Atypical chest pain. FINDINGS: An AP, portable, upright chest radiograph is compared to study dated 10/28/2021 and correlat ed with chest CT dated 11/30/2015. A single lead cardiac AICD is unchanged in position and partially o bscures the left upper chest. The heart is enlarged. There is prominence of the pulmonary vasculature . Atelectasis is seen at the lung bases. No airspace consolidation or large pleural effusion is ident ified. No pneumothorax is seen. The bony thorax is grossly intact. IMPRESSION: 1. Cardiomegaly and AICD with prominence of the pulmonary vasculature. Correlate clinically for evide nce of mild fluid overload/congestive change. 2. No airspace consolidation or pleural effusion is identified. ACT 112: Negative or not required by law. Electronically signed by: Rylan Mejia M.D. 11/04/2023 8:07 AM
[2023-11-04 08:23] LABS: Basophils # (auto) 0.05 K/uL (0.00-0.20); Basophils % (auto) 0.5 %; Eosinophils # (auto) 0.06 K/uL (0.00-0.50); Eosinophils % (auto) 0.5 %; Hematocrit (blood only) 42.9 % (42.0-52.0); Hemoglobin 13.9 g/dl (14.0-18.0); Immature Granulocytes # (auto) 0.07 K/uL (0.01-0.20); Immature Granulocytes % (auto) 0.6 %; Lymphocytes # (auto) 1.33 K/uL (1.20-3.40); Mean Corpuscular Hemoglobin 28.6 pg (25.0-34.0); Mean Corpuscular Hgb Conc 32.4 g/dL (32.0-36.0); Mean Corpuscular Volume 88.3 fL (80.0-100.0); Mean Platelet Volume 9.9 fL (9.4-12.4); Monocytes # (auto) 0.72 K/uL (0.11-0.59); Monocytes % (auto) 6.5 %; Neutrophils # (auto) 8.86 K/uL (1.40-6.50); Neutrophils % (auto) 79.9 %; Platelet Count 240 K/uL (130-400); RDW Coefficient of Variation 13.2 % (11.5-14.5); RDW Standard Deviation 42.8 fL (36.4-46.3); Red Blood Count 4.86 M/uL (4.70-6.10); White Blood Count 11.09 K/ul (4.8-10.8)
[2023-11-04 08:32] LABS: Albumin Globulin Ratio 1.8 (0.9-2); Albumin Level 4.6 gm/dl (3.4-5.0); Bilirubin,Total 0.8 mg/dl (0.2-1.0); Calcium 8.4 mg/dl (8.6-10.3); Creatinine Clr Calc Pharmacy 97.4 ml/min; Est GFR (African American) 82.6 ml/min; Est GFR (Non-African American) 71.3 ml/min; Globulin 2.5 gm/dl (2.5-4.0); Potassium 3.5 mmol/L (3.5-5.1); Total Protein 7.1 gm/dl (6.0-8.3)
[2023-11-04 08:38] LABS: Troponin I High Sensitivity 28.3 pg/ml (0-20)
--- NOTE | 2023-11-04 08:39 | Emergency Department Note ---
Impression & Plan Atrial fibrillation with RVR, Cardiomyopathy, CHF (congestive heart failure) ED Provider Note CHIEF COMPLAINT: Shortness of breath HISTORY OF PRESENT ILLNESS: This 48-year-old male patient past medical history of cardiomyopathy, CHF, atrial fibrillation presents to the emergency department with complaints of difficulty "clearing his chest," shortness of breath and some chest pressure. He states the symptoms are worse with any exertion. He did have difficulty sleeping last night. Patient states he has a history of cardiomyopathy due to viral infection 10+ years ago. He denies any coronary artery disease. REVIEW OF SYSTEMS: A review of systems was performed with positives and pertinent negatives listed in the history of present illness. 10 systems were reviewed and are otherwise negative. ALLERGIES: see below MEDICATIONS: see below PMH: see below SOCIAL HISTORY: see below DDx: Atrial fibrillation, congestive heart failure, acute coronary syndrome, pneumonia, pleural effusion, pneumothorax among others. PHYSICAL EXAM: Vital signs reviewed. General: Generally well-appearing 48-year-old male, in mild respiratory discomfort HEENT: No scleral icterus, PERRLA, neck supple. Atraumatic. Cardiovascular: Tachycardic, irregular, no extra sounds Pulmonary: Coarse breath sounds to auscultation bilaterally, slightly increased work of breathing. Abdomen: Soft, nontender, nondistended, positive bowel sounds. Musculoskeletal: Atraumatic, mild peripheral edema. Neurologic: Patient awake alert and oriented x 3, speech is clear Skin: Warm, dry, no rash EMERGENCY DEPARTMENT COURSE/MDM: This patient was evaluated and appeared to be in no significant distress. IV access was obtained and laboratory work was drawn. Patient was maintaining oxygen saturations on room air. Chest x-ray was performed and reveals cardiomegaly with congestive change, IV Lasix was ordered. Patient was also given aspirin 324 mg to chew. He is noted to be in rapid atrial fibrillation, given 5 mg of IV metoprolol. High-sensitivity troponin is 28.3, liver enzymes are slightly elevated and there is a mild leukocytosis. I suspect this is a stress mediated response. Patient's case was discussed with the hospitalist service who will evaluate the patient for admission and further management. Patient is aware of the plan and agrees. MONITORING: An order for cardiac monitoring was placed and the patient is noted to be in a atrial fibrillation with rapid ventricular response at 108 beats per minute. RADIOLOGY: Chest x-ray to my interpretation reveals evidence of cardiomegaly and congestive change. Otherwise defer to radiology's over read. EKG: To my interpretation reveals atrial fibrillation with RVR at [address] segments. Widened QRS, nonspecific intraventricular conduction delay. QTc of 428. When compared to previous dated October 28, 2021, atrial fibrillation is new. DISPOSITION: Admission I have personally spent 32 minutes of critical care time in the direct management of this patient. This was a life/limb threatening event. This 32 minutes is in excess of all separately billable procedures. Past Med/Surg History Medical History Psoriasis Cardiomegaly CHF (congestive heart failure) Surgical History S/P knee surgery Family History Other No significant family history Denies family history of Ovarian cancer Prostate cancer Myocardial infarction Breast cancer Colorectal cancer Social History Smoking Status: Never smoker Second Hand Exposure: No; Do You Dip or Chew Tobacco: No; Hx Alcohol Use: Yes Hx Substance Use: No Preferred Language: Divehi Communication Ability: Effective Mva Operator Required: No Beliefs That Will Affect Care: None marital status: Single Current Living Situation: Family current occupational status: disabled How many Children do You have: 0 Other Information That Helps Us Care for You: No Feels Safe at Home: Yes Safety Concerns: Feels Safe At This Time Childhood Exposure to Second-Hand Smoke: No Diet: regular caffeine: Yes Dental Care, Regularly: Yes Physical Activity Frequency: Daily Seatbelt Use: always Sunscreen Use: No Assistive Devices: CPAP Allergies Allergies Allergy/AdvReac Type Severity Reaction Status Date / Time Penicillins Allergy Unknown Unknown Verified 11/04/23 08:32 Home Meds Home Medications Medication Instructions Recorded Confirmed amiodarone 200 mg tablet 200 mg PO DAILY 07/22/18 11/04/23 digoxin 125 mcg (0.125 mg) tablet 125 mcg PO DAILY 07/22/18 11/04/23 furosemide 40 mg tablet 40 mg PO BID 07/22/18 11/04/23 lisinopril 5 mg tablet 5 mg PO DAILY 07/22/18 11/04/23 magnesium oxide 400 mg PO DAILY 07/22/18 11/04/23 metoprolol succinate 25 mg 25 mg PO BID 07/22/18 11/04/23 tablet,extended release 24 hr rivaroxaban 20 mg tablet 20 mg PO DAILY 07/22/18 11/04/23 spironolactone 25 mg tablet 25 mg PO DAILY 07/22/18 11/04/23 lancets 33 gauge ([facility] #100 ea 02/05/21 06/24/23 Lancets) allopurinol 300 mg tablet 300 mg PO DAILY 10/28/21 11/04/23 cyanocobalamin (vitamin B-12) 1,000 mcg PO DAILY 10/28/21 11/04/23 1,000 mcg tablet (Vitamin B-12) ustekinumab 90 mg/mL subcutaneous 90 mg subcut UD 10/28/21 11/04/23 syringe (Stelara) cholecalciferol (vitamin D3) 25 5,000 unit PO DAILY 02/07/22 11/04/23 mcg (1,000 unit) tablet (Vitamin D3) potassium chloride 10 mEq 10 meq PO BID 04/21/22 11/04/23 tablet,extended release(part/cryst) Previous Rx's Medication Instructions Recorded blood sugar diagnostic ([facility] #100 ea 02/07/22 Verio test strips) empagliflozin 25 mg tablet 25 mg PO DAILY #90 tabs 06/01/23 (Jardiance) metformin 500 mg tablet 1,000 mg (2 x 500 mg) PO BID 90 06/24/23 days #360 tabs rosuvastatin 10 mg tablet 10 mg PO DAILY #90 tabs 06/24/23 Results & Data (ED) Vital Signs Vital Signs - 24 hr 11/04/23 07:32 11/04/23 07:57 11/04/23 07:57 Temperature 36.6 C Temperature Source Temporal Artery Scan Pulse Rate 92 H Pulse Rate [Apical] 105 H Pulse Rhythm Pulse Rhythm [Apical] Regular Respiratory Rate 20 16 Blood Pressure 141/80 H Blood Pressure [Left Arm] 110/76 Blood Pressure Mean 100 Blood Pressure Mean [Left Arm] 87 Pulse Oximetry 97 93 93 Oxygen Delivery Method Room Air Room Air Room Air Oxygen Flow Rate 0 Sepsis Recent Fever Within 48 Hours No Sepsis New/Unexplained Change in Mental Status N/A Sepsis Action Taken by Nursing No Action Required 11/04/23 07:58 Temperature Temperature Source Pulse Rate 102 H Pulse Rate [Apical] Pulse Rhythm Regular Pulse Rhythm [Apical] Respiratory Rate 15 Blood Pressure Blood Pressure [Left Arm] Blood Pressure Mean Blood Pressure Mean [Left Arm] Pulse Oximetry 94 Oxygen Delivery Method Room Air Oxygen Flow Rate Sepsis Recent Fever Within 48 Hours Sepsis New/Unexplained Change in Mental Status Sepsis Action Taken by Assisted Medications Current Medication List: was personally reviewed by me Laboratory Data Attestation: I reviewed the patient's lab results. 11/05/23 06:01 11/05/23 06:01 Lab Results 11/04/23 11/04/23 Range/Units 07:51 10:07 WBC 11.09 H (4.8-10.8) K/ul RBC 4.86 (4.70-6.10) M/uL Hgb 13.9 L (14.0-18.0) g/dl Hct 42.9 (42.0-52.0) % MCV 88.3 (80.0-100.0) fL MCH 28.6 (25.0-34.0) pg MCHC 32.4 (32.0-36.0) g/dL RDW Std Deviation 42.8 (36.4-46.3) fL RDW Coeff of Ronaldo 13.2 (11.5-14.5) % Plt Count 240 (130-400) K/uL MPV 9.9 (9.4-12.4) fL Immature Gran % (Auto) 0.6 % Neut % (Auto) 79.9 % Lymph % (Auto) 12.0 % Castro % (Auto) 6.5 % Eos % (Auto) 0.5 % Baso % (Auto) 0.5 % Neut # (Auto) 8.86 H (1.40-6.50) K/uL Lymph # (Auto) 1.33 (1.20-3.40) K/uL Castro # (Auto) 0.72 H (0.11-0.59) K/uL Eos # (Auto) 0.06 (0.00-0.50) K/uL Baso # (Auto) 0.05 (0.00-0.20) K/uL Immature Gran # (Auto) 0.07 (0.01-0.20) K/uL Sodium 135 L (136-145) mmol/L Potassium 3.5 (3.5-5.1) mmol/L Chloride 101 (98-107) mmol/L Carbon Dioxide 25 (21-32) mmol/L Anion Gap 9 (3-11) BUN 19 (6-23) mg/dl Creatinine 1.19 (0.6-1.4) mg/dl Est Cr Clr Drug Dosing 97.4 ml/min Est GFR ( Amer) 82.6 ml/min Est GFR (Non-Af Amer) 71.3 ml/min BUN/Creatinine Ratio 16.0 (10-20) Glucose 175 H (70-99(Fasting)) mg/dl Calcium 8.4 L (8.6-10.3) mg/dl Phosphorus 3.2 (2.5-4.9) mg/dl Magnesium 2.3 (1.7-2.4) mg/dl Total Bilirubin 0.8 (0.2-1.0) mg/dl AST 40 H (13-39) U/L ALT 74 H (7-52) U/L Alkaline Phosphatase 78 (34-104) U/L Troponin I High Sens 28.3 H 27.2 H (0-20) pg/ml Total Protein 7.1 (6.0-8.3) gm/dl Albumin 4.6 (3.4-5.0) gm/dl Globulin 2.5 (2.5-4.0) gm/dl Albumin/Globulin Ratio 1.8 (0.9-2) Lipase 49 (11-82) U/L Administered Medications Allopurinol (Allopurinol 300 Mg Tab) 300 mg PO DAILY TERENCE Stop: 12/05/23 08:59 Last Admin: 11/05/23 08:45 Dose: 300 mg Documented By: LACI Amiodarone HCl (Amiodarone 200 Mg Tab) 200 mg PO DAILY TERENCE Stop: 12/05/23 08:59 Last Admin: 11/05/23 08:45 Dose: 200 mg Documented By: LACI Digoxin (Digoxin 0.125 Mg Tab) 0.125 mg PO DAILY TERENCE Stop: 12/05/23 08:59 Last Admin: 11/05/23 08:44 Dose: 0.125 mg Documented By: LACI Empagliflozin (Empagliflozin 25 Mg Tab) 25 mg PO DAILY TERENCE Stop: 06/01/24 08:59 Last Admin: 11/05/23 08:46 Dose: 25 mg Documented By: LACI Furosemide (Furosemide 40 Mg/4 Ml Vial) 40 mg IV BID17 TERENCE Stop: 12/05/23 08:59 Last Admin: 11/05/23 17:25 Dose: 40 mg Documented By: Admin: 11/05/23 08:54 Dose: 40 mg Documented By: LACI Amiodarone HCl/Dextrose (Nexterone / D5w) 360 mg in 200 mls @ 16.667 mls/hr IV .Q12H TERENCE Stop: 12/05/23 17:14 Last Admin: 11/06/23 05:14 Dose: 0.5 mg/min, 16.7 mls/hr Documented By: ZEYNEP Co-signed By: CAM Infusion: 11/06/23 05:14 Dose: Infused Documented By: ZEYNEP Co-signed By: CAM Infusion: 11/05/23 19:11 Dose: 0.5 mg/min, 16.7 mls/hr Documented By: LACI Co-signed By: ZEYNEP Admin: 11/05/23 17:30 Dose: 0.5 mg/min, 16.7 mls/hr Documented By: LACI Co-signed By: LI Insulin Aspart (Insulin Aspart Per Unit Charge) 0 units SC ACHS TERENCE Stop: 12/04/23 11:29 Last Admin: 11/05/23 20:46 Dose: Not Given Documented By: Admin: 11/05/23 17:34 Dose: 3 units Documented By: LACI Co-signed By: LI Admin: 11/05/23 12:52 Dose: 4 units Documented By: LACI Co-signed By: REBECCA Admin: 11/05/23 08:55 Dose: 4 units Documented By: LACI Co-signed By: DIANA Admin: 11/04/23 21:29 Dose: Not Given Documented By: Admin: 11/04/23 18:15 Dose: Not Given Documented By: Admin: 11/04/23 11:30 Dose: Not Given Documented By: ANA Insulin Glargine (Lantus Per Unit Charge) 5 units SQ BID TERENCE Stop: 12/04/23 20:59 Last Admin: 11/05/23 22:23 Dose: Not Given Documented By: Admin: 11/05/23 08:56 Dose: 5 units Documented By: LACI Co-signed By: DIANA Admin: 11/04/23 21:33 Dose: Not Given Documented By: ZEYNEP Magnesium Oxide (Magnesium Oxide 400 Mg Tab) 400 mg PO DAILY TERENCE Stop: 12/05/23 08:59 Last Admin: 11/05/23 08:46 Dose: 400 mg Documented By: LACI Metoprolol Succinate (Metoprolol Succ 25mg Ext Rel Tab) 25 mg PO BID TERENCE Stop: 12/04/23 20:59 Last Admin: 11/05/23 22:22 Dose: 25 mg Documented By: Admin: 11/05/23 08:45 Dose: 25 mg Documented By: Admin: 11/04/23 21:31 Dose: Not Given Documented By: ZEYNEP Potassium Chloride (Potassium Chloride Crtab 20 Meq Tabcr) 20 meq PO BID TERENCE Stop: 12/04/23 16:29 Last Admin: 11/05/23 22:22 Dose: 20 meq Documented By: Admin: 11/05/23 08:45 Dose: 20 meq Documented By: Admin: 11/04/23 18:29 Dose: 20 meq Documented By: KRIS Rivaroxaban (Rivaroxaban 20 Mg Tab) 20 mg PO QDD TERENCE Stop: 12/05/23 16:29 Last Admin: 11/05/23 17:26 Dose: 20 mg Documented By: LACI Rosuvastatin Calcium (Rosuvastatin Calcium 10 Mg Tab) 10 mg PO DAILY TERENCE Stop: 12/05/23 08:59 Last Admin: 11/05/23 08:46 Dose: 10 mg Documented By: LACI Spironolactone (Spironolactone 25 Mg Tab) 25 mg PO DAILY TERENCE Stop: 12/05/23 08:59 Last Admin: 11/05/23 08:46 Dose: 25 mg Documented By: LACI Discontinued Medications Aspirin (Aspirin Chew 324 Mg) 324 mg PO NOW STA Stop: 11/04/23 07:46 Last Admin: 11/04/23 07:53 Dose: 324 mg Documented By: ANA Furosemide (Furosemide 40 Mg/4 Ml Vial) 40 mg IV ONE ONE Stop: 11/04/23 08:20 Last Admin: 11/04/23 08:52 Dose: 40 mg Documented By: ANA Furosemide (Furosemide 40 Mg Tab) 40 mg PO BID17 TERENCE Stop: 12/04/23 16:59 Last Admin: 11/04/23 17:06 Dose: 40 mg Documented By: KRIS Amiodarone HCl/Dextrose (Nexterone / D5w) 150 mg in 100 mls @ 600 mls/hr IV NOW STA Stop: 11/05/23 11:10 Last Infusion: 11/05/23 19:00 Dose: Infused Documented By: ZEYNEP Co-signed By: DAMIEN Admin: 11/05/23 11:33 Dose: 600 mls/hr Documented By: LACI Co-signed By: DIANA Amiodarone HCl/Dextrose (Nexterone / D5w) 360 mg in 200 mls @ 33.333 mls/hr IV ONE ONE Stop: 11/05/23 17:11 Last Infusion: 11/05/23 19:00 Dose: Infused Documented By: ZEYNEP Co-signed By: DAMIEN Admin: 11/05/23 11:42 Dose: 1 mg/min, 33.3 mls/hr Documented By: LACI Co-signed By: DIANA Metoprolol Tartrate (Metoprolol Tartrate 1 Mg/Ml Vial) 5 mg IV NOW STA Stop: 11/04/23 08:43 Last Admin: 11/04/23 08:52 Dose: 5 mg Documented By: ANA Metoprolol Tartrate (Metoprolol Tartrate 1 Mg/Ml Vial) 5 mg IV NOW STA Stop: 11/04/23 09:44 Last Admin: 11/04/23 10:02 Dose: Not Given Documented By: ANA Potassium Chloride (Potassium Chloride Crtab 20 Meq Tabcr) 40 meq PO NOW STA Stop: 11/04/23 10:45 Last Admin: 11/04/23 11:40 Dose: 40 meq Documented By: KV Imaging Data Radiologist's Impression: Chest X-Ray 11/04/23 07:44 SINGLE VIEW CHEST CLINICAL HISTORY: Atypical chest pain. FINDINGS: An AP, portable, upright chest radiograph is compared to study dated 10/28/2021 and correlated with chest CT dated 11/30/2015. A single lead cardiac AICD is unchanged in position and partially obscures the left upper chest. The heart is enlarged. There is prominence of the pulmonary vasculature. Atelectasis is seen at the lung bases. No airspace consolidation or large pleural effusion is identified. No pneumothorax is seen. The bony thorax is grossly intact. IMPRESSION: 1. Cardiomegaly and AICD with prominence of the pulmonary vasculature. Correlate clinically for evidence of mild fluid overload/congestive change. 2. No airspace consolidation or pleural effusion is identified. ACT 112: Negative or not required by law. Electronically signed by: Rylan Mejia M.D. 11/04/2023 8:07 AM Discharge Plan Visit Data Chief Complaint: Chest Pain Stated Complaint: CHEST PAIN,TROUBLE BREATHING ED Provider: Jackie Potter Discharge Problem: Atrial fibrillation with RVR, Cardiomyopathy, CHF (congestive heart failure) Patient Disposition: Admitted As Inpatient Discharge Instructions Interventions: ED Discharge Assessment Last Done: 11/04/23 14:42 Discharge Problem: Cardiomyopathy Qualifiers: Cardiomyopathy type: unspecified Qualified Code(s): I42.9 - Cardiomyopathy, unspecified CHF (congestive heart failure) Qualifiers: Heart failure type: unspecified Heart failure chronicity: acute on chronic Q ualified Code(s): I50.9 - Heart failure, unspecified
[2023-11-04] MEDS: FUROSEMIDE 40 MG/4 ML VIAL IV ONE (08:52)
[2023-11-04] MEDS: METOPROLOL TARTRATE 1 MG/ML VIAL IV STA ×2 (08:52→10:02)
--- NOTE | 2023-11-04 10:21 | History & Physical Report ---
Date of Service November 04, 2023 Assessment & Plan (1) SWAIN (dyspnea on exertion): Plan: -Admit to the PCU on tele and pulse oximetry -Currently with stable vitals and asymptomatic -Presented to the ED this am for ongoing SWAIN, chest tightness, and non- productive cough which was more severe and persistent compared to the past 1-2 weeks -Noted to be in afib RVR with HR in the low 100's on arrival with signs of increased pulmonary vascular congestion on CXR -His symptoms are likely multifactorial including SWAIN from CHF exacerbation and being in afib with RVR >Unsure at this time which precipitated the other -Low suspicion for PE at this time as he has been compliant with his home Xarelto, has been hemodynamically stable, and stable on RA -Will obtain full respiratory biofire to rule out viral etiology -Initial high sen trop elevated at 28, 2 hour repeat is in process -No acute ST segment or T-wave changes on ecg -S/P 40 mg IV lasix in the ED, will continue with 40 mg IV BID for now -Hold PO lasix and spironolactone while on IV diuretics -Monitor intake/output Q-shift and daily weights -Will consult [facility] as he follows with them outpatient -Home Xarelto for DVT PPX -HH/DMII diet with 2gm sodium and 1800 mL fluid restriction -AM CBC, CMP, mag, PT/INR (2) CHF exacerbation: Plan: -Continue IV diuresis -Will obtain TTE and BNP on admission -Will obtain pacemaker interrogation -Rest of care per SWAIN -Hold PO lasix and Spironolactone while on IV lasix -Continue Jardiance and (3) Atrial fibrillation with RVR: Plan: -Noted to be in afib RVR with HR in the low 100's on arrival -S/P 2 doses of 5 mg IV metoprolol in the ED -Currently in rate controlled afib -Potassium was 3.5, mag level is in process -Will obtain dig and amiodarone levels on admission -Will give 40 meq PO KCL now -Plan to keep K+at or above 4 and mag at or above 2 -Continue home metoprolol, dig, and amiodarone (4) Elevated LFTs: Plan: -AST of 40 and ALT of 74 today -Other LFT's are WNL -No signs of scleral icterus or jaundice -Denies consistent alcohol use -Likely due to viral illness or possibly congestive hepatopathy -Patient is also on amiodarone, cannot rule this out as possible etiology at this time -Will obtain respiratory biofire and acetaminophen level on admission -Follow CMP tomorrow, if not improving would continue workup (5) Chest tightness: Plan: -Likely due to his CHF exacerbation and afib RVR on arrival -Symptoms have currently resolved -Low suspicion for PE at this time, see SWAIN -Continue to monitor on tele/pulse oximetry -Follow Cardiac workup (6) Elevated troponin: Plan: -Initial high sen trop elevated at 28 -Two hour repeat is in process -No acute ST segment or T-wave changes on ECG -Likely due to demand from CHF exacerbation and afib RVR -Follow cardiac workup -Cardiology consulted (7) Cough: Plan: -Has had a non-productive cough over the past 2 weeks -Most likely due to CHF exacerbation as his CXR is negative for focal consolidations or other acute findings -He does have a reduced lymphocyte count, will obtain respiratory biofire on admission -PRN antitussive if symptoms don't improve with treatment of his CHF exacerbation -Incentive spirometry, flutter therapy (8) HTN (hypertension), benign: Plan: -Will hold lisinopril to prevent hypotension with IV diuretics (9) Type 2 diabetes mellitus: Plan: -Hold metformin -Monitor BSG ACHS, goal is 110-160 -Start CF of 40 and CR of 15 -Start 5 units lantus BID -Can continue Jardiance as he is also on this for Heart Failure -Adjust regimen as needed (10) Cardiomyopathy: Plan: -Will obtain pacemaker interrogation -Patient denies feeling ICD discharge during this past 2 weeks of current symptoms Plan The patient was discussed with Dr. Kent at the time of the admission History of Present Illness Chief Complaint: Chest pain, SOB, cough Primary Care Provider: Samanta Jung MD Shahid is a 48 year old male with a PMH significant for idiopathic dilated cardiomyopathy, HFrEF (LVEF of 25-29%), S/P pacer/defibrillator placement in 2007, Paroxysmal and intermittently persistent atrial fibrillation (on Xarelto), dilated aortic root and ascending aorta, NEAL on CPAP, DMII, Psoriasis, and gout who presented to the [facility] ED on 11/04/23 with complaints of cough, SOB, chest pain, and SWAIN. He was noted to be tachycardic with HR in the low 100s on arrival but was otherwise stable. Labs were significant for a leukocytosis of 11 with neutrophil predominance of 8, AST of 40, ALT of 74, initial high sen top of 28. Chest xray was read as 1. Cardiomegaly and AICD with prominence of the pulmonary vasculature. Correlate clinically for evidence of mild fluid overload/congestive change. 2. No airspace consolidation or pleural effusion is identified.. Prior to admission the patient was given 324 mg Aspirin, 40 mg IV Lasix, and 2 doses, 5 mg IV metoprolol. At the time of the exam the patient was sitting in bed in no acute distress with his parents bedside, history was obtained from the patient. Has been experiencing progressive non-productive cough, SOB/SWAIN, and mild left chest tightness over the past 1-2 weeks. 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 While at work this am he noticed that his symptoms were not improving and were actually worse with exertion today. He felt increased fatigue and SOB with his normal work activities. His chest tightness was described as a crescendo-decrescendo with symptoms improving after rest which is why he came to the ED. States that he thought his symptoms over the past 2 weeks were due to allergies as he had increased congestion and post nasal drip. When asked, he is currently asymptomatic. When asked, he states that he had some mild left arm/shoulder discomfort this am but is unsure if this was related to work or his other symptoms. He admits to not being diligent with sticking to his low sodium, fluid restricted diet. He has been taking all medications as prescribed and did take all am meds today. Feels as though his abdomen as been getting more swollen lately, this is where he usually has swelling with CHF exacerbations. Does not monitor his weight regularly. Denies recent fever, chills, hemoptysis, abdominal pain, nausea, vomiting, dysuria, hematuria, melena, diarrhea, LE swelling, and recent trauma. States he feels when his ICD fires, has not felt the ICD discharge recently. Please refer to Dr. Kent's attestation for any changes to the treatment plan Allergies Allergy/AdvReac Type Severity Reaction Status Date / Time Penicillins Allergy Unknown Unknown Verified 11/04/23 08:32 Home Medications Medication Instructions Recorded Confirmed Type amiodarone 200 mg tablet 200 mg PO DAILY 07/22/18 11/04/23 History digoxin 125 mcg (0.125 mg) tablet 125 mcg PO DAILY 07/22/18 11/04/23 History furosemide 40 mg tablet 40 mg PO BID 07/22/18 11/04/23 History lisinopril 5 mg tablet 5 mg PO DAILY 07/22/18 11/04/23 History magnesium oxide 400 mg PO DAILY 07/22/18 11/04/23 History metoprolol succinate 25 mg 25 mg PO BID 07/22/18 11/04/23 History tablet,extended release 24 hr rivaroxaban 20 mg tablet 20 mg PO DAILY 07/22/18 11/04/23 History spironolactone 25 mg tablet 25 mg PO DAILY 07/22/18 11/04/23 History lancets 33 gauge (OneTouch Delica #100 ea 02/05/21 06/24/23 History Lancets) allopurinol 300 mg tablet 300 mg PO DAILY 10/28/21 11/04/23 History cyanocobalamin (vitamin B-12) 1,000 mcg PO DAILY 10/28/21 11/04/23 History 1,000 mcg tablet (Vitamin B-12) ustekinumab 90 mg/mL subcutaneous 90 mg subcut UD 10/28/21 11/04/23 History syringe (Stelara) blood sugar diagnostic (OneTouch #100 ea 02/07/22 06/24/23 Rx Verio test strips) cholecalciferol (vitamin D3) 25 5,000 unit PO DAILY 02/07/22 11/04/23 History mcg (1,000 unit) tablet (Vitamin D3) potassium chloride 10 mEq 10 meq PO BID 04/21/22 11/04/23 History tablet,extended release(part/cryst) empagliflozin 25 mg tablet 25 mg PO DAILY #90 tabs 06/01/23 11/04/23 Rx (Jardiance) metformin 500 mg tablet 1,000 mg (2 x 500 mg) PO BID 90 06/24/23 11/04/23 Rx days #360 tabs rosuvastatin 10 mg tablet 10 mg PO DAILY #90 tabs 06/24/23 11/04/23 Rx Past Med/Surg History Medical History Psoriasis Cardiomegaly CHF (congestive heart failure) Surgical History S/P knee surgery Family History Other No significant family history Denies family history of Ovarian cancer Prostate cancer Myocardial infarction Breast cancer Colorectal cancer Social History Smoking Status: Never smoker Second Hand Exposure: No; Do You Dip or Chew Tobacco: No; Hx Alcohol Use: Yes Hx Substance Use: No Preferred Language: Stateless Communication Ability: Effective Hatchery Man Required: No Beliefs That Will Affect Care: None marital status: Single Current Living Situation: Family current occupational status: disabled How many Children do You have: 0 Other Information That Helps Us Care for You: No Feels Safe at Home: Yes Safety Concerns: Feels Safe At This Time Childhood Exposure to Second-Hand Smoke: No Diet: regular caffeine: Yes Dental Care, Regularly: Yes Physical Activity Frequency: Daily Seatbelt Use: always Sunscreen Use: No Assistive Devices: Glasses Physical Exam Physical Exam: Physical Exam: General: In no acute distress, stated age, well-nourished, non-toxic appearing HEENT: Normocephalic, atraumatic, no scleral icterus, pupils around round, sy mmetrical, and reactive to light, moist mucus membranes, +JVD, trachea midline, no thyromegaly Chest/Pulm: No respiratory distress, symmetrical chest expansion, rales noted in the BL lower and mid lung white, upper lung white are CTA Cardiac: irregular rate and rhythm, 3/6 systolic murmur noted Abdomen: Negative for ascites and bruising, normoactive bowel sounds, soft, non-tender to palpation throughout Musculoskeletal: Symmetrical and without signs of acute trauma, upper and lower extremities with full ROM, no atrophy, spasticity, or flaccidity >No reporducible chest pain on palpation Extremities: Radial, dorsalis pedis, and posterior tibial pulses are intact and symmetrical, no edema noted in the BL LE's Skin: Scattered plaques from Psoriasis scattered on the anterior/posterior trunk Neuro: Alert and oriented to person, place, month, year, and president, no focal defects, no tremors noted Psych: No acute distress, calm and cooperative during the exam Results & Data Results & Data Vital Signs (Past 12 Hours) Vital Signs Temp Pulse Pulse Resp BP BP Pulse Ox 11/04/23 10:03 88 15 92/71 L 93 11/04/23 10:02 90 92/71 L 11/04/23 08:52 101 H 118/88 11/04/23 08:42 93 H 11/04/23 08:31 114 H 20 92 11/04/23 08:20 112 H 17 94 11/04/23 08:10 91 H 20 92 11/04/23 08:01 104 H 22 95 11/04/23 08:01 117/69 11/04/23 08:00 101 H 19 95 11/04/23 07:58 102 H 15 94 11/04/23 07:57 105 H 16 110/76 93 11/04/23 07:57 93 11/04/23 07:50 108 H 24 94 11/04/23 07:47 105 H 17 94 11/04/23 07:32 36.6 C 92 H 20 141/80 H 97 O2 Del Method O2 Flow Rate 11/04/23 10:03 Room Air 11/04/23 10:02 11/04/23 08:52 11/04/23 08:42 11/04/23 08:31 11/04/23 08:20 11/04/23 08:10 11/04/23 08:01 11/04/23 08:01 11/04/23 08:00 11/04/23 07:58 Room Air 11/04/23 07:57 Room Air 11/04/23 07:57 Room Air 0 11/04/23 07:50 11/04/23 07:47 11/04/23 07:32 Room Air Laboratory Results Abnormal lab results 11/04/23 Range/Units 07:51 WBC 11.09 H (4.8-10.8) K/ul Hgb 13.9 L (14.0-18.0) g/dl Neut # (Auto) 8.86 H (1.40-6.50) K/uL [place] # (Auto) 0.72 H (0.11-0.59) K/uL Sodium 135 L (136-145) mmol/L Glucose 175 H (70-99(Fasting)) mg/dl Calcium 8.4 L (8.6-10.3) mg/dl AST 40 H (13-39) U/L ALT 74 H (7-52) U/L Troponin I High Sens 28.3 H (0-20) pg/ml Diagnostic Findings Chest X-Ray 11/04/23 07:44 SINGLE VIEW CHEST CLINICAL HISTORY: Atypical chest pain. FINDINGS: An AP, portable, upright chest radiograph is compared to study dated 10/28/2021 and correlated with chest CT dated 11/30/2015. A single lead cardiac AICD is unchanged in position and partially obscures the left upper chest. The heart is enlarged. There is prominence of the pulmonary vasculature. Atelectasis is seen at the lung bases. No airspace consolidation or large pleural effusion is identified. No pneumothorax is seen. The bony thorax is grossly intact. IMPRESSION: 1. Cardiomegaly and AICD with prominence of the pulmonary vasculature. Correlate clinically for evidence of mild fluid overload/congestive change. 2. No airspace consolidation or pleural effusion is identified. ACT 112: Negative or not required by law. Electronically signed by: Rylan Mejia M.D. 11/04/2023 8:07 AM ECG Additional Comments: Atrial fibrillation with rapid ventricular response Left axis deviation Non- specific intra-ventricular conduction delay Minimal voltage criteria for LVH, may be normal variant ( Dante product ) Nonspecific ST and T wave abnormality Abnormal ECG When compared with ECG of 28-OCT-2021 16:54, Atrial fibrillation has replaced Sinus rhythm QRS axis Shifted left ST no longer depressed in Inferior leads Code Status & VTE Plan Code Status Full code VTE Prophylaxis Plan VTE Prophylaxis will be ordered: Yes Supervising Physician Co-Signing Physician Notes I personally saw and examined the patient. I verified all aggarwal points and agree with Quintin Renteria PA-C with the following exceptions and/or additions: 48 year old male with known idiopathic cardiomyopathy and repeated episodes of heart failure precipitated by a. fib RVR requiring cardioversion previously presents to the ER with shortness of breath. O/E HS increased rate, irregular rhythm, systolic murmur, JVD elevated, Chest bibasal crackles, Abdo SNT, no pedal edema A/P Acute on chronic congestive heart failure with reduced ejection fraction - Lasix 40mg IV BID, continue spironolactone 25mg PO daily, I&Os, daily weights A. 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 electrical cardioversion which he has required in the past. Unclear longer term solution ?ablation PG Care Time/CCT Total # of Minutes Spent Total Time Spent with Patient: Total time spent is greater than 50% in coordination of care (as documented) at patient's floor/unit and/or counseling patient: Coding [place] [address] INT INP/OBS CARE 375MIN Patient Type Established Medical Decision Making High Complexity Diagnoses WSAIN (dyspnea on exertion) R06.09 CHF exacerbation I50.9 Atrial fibrillation with RVR I48.91 Elevated LFTs R79.89 Chest tightness R07.89 Elevated troponin R79.89 Cough R05.9 HTN (hypertension), benign I10 Type 2 diabetes mellitus without complication, without long-term current use of insulin E11.9 Diabetes mellitus complication status: without complication Diabetes mellitus professor of english insulin use: without mcc use Cardiomyopathy I42.9 (9) Type 2 diabetes mellitus Diabetes mellitus complication status: without complication Diabetes mellitus mcc insulin use: without professor of english use Qualified Code(s): E11.9 - Type 2 diabetes mellitus without complications
[2023-11-04] MEDS ORDERED: DEXTROSE 50% 50 ML SYRINGE IV PRN (10:42)
[2023-11-04] MEDS ORDERED: GLUCOSE 40% GEL 15 GM TUBE PO PRN (10:42)
[2023-11-04] MEDS ORDERED: GLUCAGON FOR INJ 1 MG VIAL SQ PRN (10:42)
[2023-11-04] MEDS ORDERED: CARBOHYDRATES FOR HYPOGLYCEMIA PO PRN (10:42)
[2023-11-04] MEDS ORDERED: GLUCOSE 10 TAB/TUBE PO PRN (10:42)
[2023-11-04 11:16] LABS: Magnesium 2.3 mg/dl (1.7-2.4); Phosphorus 3.2 mg/dl (2.5-4.9)
[2023-11-04 11:20] LABS: Troponin I High Sensitivity 27.2 pg/ml (0-20)
[2023-11-04] MEDS: INSULIN ASPART PER UNIT CHARGE SC SCH (11:30)
[2023-11-04] MEDS: POTASSIUM CHLORIDE CRTAB 20 MEQ TABCR PO STA (11:40)
[2023-11-04 11:49] LABS: Adenovirus PCR Not Detected (NotDetected); Bordetella parapertussis PCR Not Detected (NotDetected); Bordetella pertussis PCR Not Detected (NotDetected); Chlamydia pneumoniae PCR Not Detected (NotDetected); Coronavirus 229E PCR Not Detected (NotDetected); Coronavirus CoV-2 (COVID19)PCR Not Detected (NotDetected); Coronavirus HKU1 PCR Not Detected (NotDetected); Coronavirus NL63 PCR Not Detected (NotDetected); Coronavirus OC43PCR Not Detected (NotDetected); Human Metapneumovirus PCR Not Detected (NotDetected); Influenza A PCR Not Detected (NotDetected); Influenza B PCR Not Detected (NotDetected); Mycoplasma pneumoniae PCR Not Detected (NotDetected); Parainfluenza Virus 1 PCR Not Detected (NotDetected); Parainfluenza Virus 2 PCR Not Detected (NotDetected); Parainfluenza Virus 3 PCR Not Detected (NotDetected); Parainfluenza Virus 4 PCR Not Detected (NotDetected); Respiratory Syncytial VirusPCR Not Detected (NotDetected); Rhinovirus/Enterovirus PCR Not Detected (NotDetected)
--- NOTE | 2023-11-04 15:42 | Cardiology Consultation ---
Date of Consultation November 04, 2023 Assessment & Plan (1) Acute on chronic heart failure with reduced ejection fraction and diastolic dysfunction: (2) Atrial fibrillation with controlled ventricular rate: (3) Dilated cardiomyopathy: Plan Patient admitted with acute HFrEF with evidence of volume overload on exam, pulm congestion, abdominal bloating and SOB. History of severely dilated cardiomyopathy. Started on IV lasix 40 mg BID in the ER. To receive an additional dose at 5:00 PM. Monitor I+O's Increase potassium to 20 meq BID Monitor renal function and electrolytes. Echo with interval decline in LVEF now 15% Also found to have recurrent atrial fibrillation on admission. Rates initially elevated but now improved and rates controlled Continue amiodarone, digoxin, metoprolol 25 mg BID. Consider reloading amiodarone. consider future DCCV if he remains in afib. He has been compliant with Xarelto. He has been poorly tolerant of afib RVR in the past with recurrent admissions for CHF. Continue Xarelto during this admission for stroke prophylaxis. CHF medications have been limited in the past due to borderline hypotension. Case discussed with Dr. Mix I spent a total of 60 minutes on the date of service in preparation, delivery, and documentation of the care provided to this patient, excluding any time spent in the performance of separately billed services. Vera Ron PA-C Department of Cardiology, [facility] This chart was completed in part utilizing Speech Voice Recognition Software. Grammatical errors, random word insertions, pronoun errors, and incomplete sentences are an occasional consequence of this system due to software limitati ons, ambient noise, and hardware issues. Any formal questions or concerns about the content, text, or information contained within the body of this dictation should be directly addressed to the provider for clarification. Supervising Physician Co-Signing Physician Notes I have reviewed the advance practitioner's documentation, and I agree with, and take responsibility for the plan of care. I have personally performed a history and physical examination on the patient. 48-year-old male with progressive shortness of breath and abdominal bloating over approximately 3-4 weeks. Admits to dietary indiscretions. Compliant with current medications. Evidence-based heart failure therapy is limited by chronic hypotension. ECG: Atrial fibrillation with rapid ventricular response, 104 bpm. Nonspecific interventricular conduction delay. PE: VSS. Borderline hypotension. Heart: Irregular rhythm, normal S1-S2., 2/6 holosystolic murmur heard best at the apex. Lungs: Crackles at the base and midlung white bilaterally. Abdomen: Mild distention, no rebound or guarding. Extremities: No edema. A/P: 48-year-old male with acute on chronic heart failure with severely reduced left ventricular ejection fraction. History of nonischemic cardiomyopathy and severe LV dysfunction. Currently atrial fibrillation with borderline rate control. Recommend IV diuresis, Lasix 40 mg twice daily. Supplement potassium as indicated. Monitor daily weight, fluid balance, GFR, and electrolytes. Consider addition of low-dose Aldactone and/or Entresto during hospitalization although patient has demonstrated intolerance in the past. Consider external direct-current cardioversion when volume status optimized. I spent a total of 40 minutes on the date of service in preparation, delivery, and documentation of the care provided to this patient, excluding any time spent in the performance of separately billed services. History of Present Illness Reason for Consultation: CHF; Afib RVR Requesting Physician: Dr. Kent Attending Physician: Dr. Pryor History of Present Illness Patient 48 year old male admitted to [facility] with complaints of worsening SOB, chest tightness. Patient known to [facility], follows with Dr. Johnson. Complex history includin. Idiopathic dilated cardiomyopathy with markedly dilated ventricle, LVE and diastolic dimension 7.5 cm, severely reduced ejection fraction. 2. Class 2-3 congestive heart failure [employer]. 3. Status post prophylactic pacer defibrillator implantation single chamber January 2008. Last generator exchange June 26, 2015 [employer], model -Evera XT VR [id number] 4. Past history of sustained ventricular tachycardia, appropriate device activation most recent discharge 2015 5. Paroxysmal and intermittently persistent atrial fibrillation. 6. Hospitalizations with acute pulmonary edema x2 in association with atrial fibrillation with rapid response and acute presentation following elective synchronized electrical cardioversion. 7. Status post synchronized electrical cardioversion on 10/14/2016 8. Dilated aortic root and ascending aorta Patient reporting worsening SOB and chest congestion over the last several weeks. This morning he developed acute worsening of his symptoms with chest tig htness and came to the ER for evaluation. BNP elevated. Chest xray consistent with pulm vascular congestion. Found to have recurrent afib with controlled rates on arrival. Recent device interrogation in office demonstrated short episodes of tachycardia, likely due to afib dating back to early September. He only has single lead device. Patient reports he has been compliant with all meds. His weight at home has fluctuated upward but not significantly. He admits to dietary indiscretion. At time of consult, patient resting in bed comfortably. He notes mild diffuse chest tightness. He notes frequent urination since dose of IV lasix in the ER. HR remains controlled the 80's with persistent afib. he was unaware of the recurrent afib. He reports typically he can tell if he goes in/out of a rrhythmia. No recent shocks. Allergies Allergy/AdvReac Type Severity Reaction Status Date / Time Penicillins Allergy Unknown Unknown Verified 11/04/23 08:32 Home Medications Medication Instructions Recorded Confirmed Type amiodarone 200 mg tablet 200 mg PO DAILY 07/22/18 11/04/23 History digoxin 125 mcg (0.125 mg) tablet 125 mcg PO DAILY 07/22/18 11/04/23 History furosemide 40 mg tablet 40 mg PO BID 07/22/18 11/04/23 History lisinopril 5 mg tablet 5 mg PO DAILY 07/22/18 11/04/23 History magnesium oxide 400 mg PO DAILY 07/22/18 11/04/23 History metoprolol succinate 25 mg 25 mg PO BID 07/22/18 11/04/23 History tablet,extended release 24 hr rivaroxaban 20 mg tablet 20 mg PO DAILY 07/22/18 11/04/23 History spironolactone 25 mg tablet 25 mg PO DAILY 07/22/18 11/04/23 History lancets 33 gauge ([facility] #100 ea 02/05/21 06/24/23 History Lancets) allopurinol 300 mg tablet 300 mg PO DAILY 10/28/21 11/04/23 History cyanocobalamin (vitamin B-12) 1,000 mcg PO DAILY 10/28/21 11/04/23 History 1,000 mcg tablet (Vitamin B-12) ustekinumab 90 mg/mL subcutaneous 90 mg subcut UD 10/28/21 11/04/23 History syringe (Stelara) blood sugar diagnostic ([facility] #100 ea 02/07/22 06/24/23 Rx Verio test strips) cholecalciferol (vitamin D3) 25 5,000 unit PO DAILY 08/05/22 05/01/24 History mcg (1,000 unit) tablet (Vitamin D3) potassium chloride 10 mEq 10 meq PO BID 04/21/22 11/04/23 History tablet,extended release(part/cryst) empagliflozin 25 mg tablet 25 mg PO DAILY #90 tabs 06/01/23 11/04/23 Rx (Jardiance) metformin 500 mg tablet 1,000 mg (2 x 500 mg) PO BID 90 06/24/23 11/04/23 Rx days #360 tabs rosuvastatin 10 mg tablet 10 mg PO DAILY #90 tabs 06/24/23 11/04/23 Rx Patient History Medical History Psoriasis Cardiomegaly CHF (congestive heart failure) Surgical History S/P knee surgery Family History Other No significant family history Denies family history of Ovarian cancer Prostate cancer Myocardial infarction Breast cancer Colorectal cancer Social History Smoking Status: Never smoker Second Hand Exposure: No; Do You Dip or Chew Tobacco: No; Hx Alcohol Use: Yes Hx Substance Use: No Preferred Language: Panamanian Communication Ability: Effective Mining Consultant Required: No Beliefs That Will Affect Care: None marital status: Single Current Living Situation: Family current occupational status: disabled How many Children do You have: 0 Other Information That Helps Us Care for You: No Feels Safe at Home: Yes Safety Concerns: Feels Safe At This Time Childhood Exposure to Second-Hand Smoke: No Diet: regular caffeine: Yes Dental Care, Regularly: Yes Physical Activity Frequency: Daily Seatbelt Use: always Sunscreen Use: No Assistive Devices: Glasses Review of Systems Review of Systems: All systems reviewed & are unremarkable except as noted in HPI & below Physical Exam Constitutional: WD/WN, vitals as above average body habitus; no acute distress Respiratory: no respiratory distress and no labored breathing Auscultation: + crackles (bases b/l ) and + rales Cardiovascular: Rate/Rhythm: + irregularly irregular Heart Sounds: + murmur (II/ systolic murmur) Vessels: + JVD Extremities: + edema (trace b/l edema) Gastrointestinal (Abdomen): normal bowel sounds, soft, nontender, no hepatosplenomegaly Neurologic: PERRL, EOMI, accommodation nl, no face palsy, no dysarthria Psychiatric: A+Ox3, euthymic affect Results & Data Vital Signs (Past 12 Hours) Vital Signs Temp Pulse Pulse Resp BP BP Pulse Ox 11/04/23 15:21 11/04/23 15:21 36.7 C 92 H 20 100/67 92 11/04/23 14:30 103/73 11/04/23 14:30 83 30 H 93 11/04/23 14:20 79 26 H 90 11/04/23 14:17 79 32 H 91 11/04/23 14:00 84 24 93 11/04/23 14:00 113/82 11/04/23 13:50 86 26 H 94 11/04/23 13:49 98 H 16 92/67 L 90 11/04/23 13:48 87 20 90 11/04/23 13:47 92/67 L 11/04/23 13:46 94 H 33 H 93 11/04/23 13:41 93 H 28 H 11/04/23 13:35 93 H 27 H 11/04/23 13:10 90 11/04/23 12:30 86 17 96 11/04/23 12:20 91 H 26 H 91 11/04/23 12:12 83 23 94 11/04/23 12:01 104/88 11/04/23 12:01 92 H 19 91 11/04/23 12:00 93 H 21 94 11/04/23 11:50 82 22 95 11/04/23 11:40 89 25 H 92 11/04/23 11:31 92/71 L 11/04/23 11:31 78 15 90 11/04/23 11:30 81 24 89 L 11/04/23 11:20 82 26 H 94 11/04/23 11:10 81 22 92 11/04/23 11:00 86 23 92 11/04/23 10:50 95 H 27 H 93 11/04/23 10:40 82 22 91 11/04/23 10:32 92 H 18 94 11/04/23 10:32 102/77 11/04/23 10:30 95 H 13 95 11/04/23 10:20 91 H 18 94 11/04/23 10:10 91 H 20 93 11/04/23 10:03 88 15 92/71 L 93 11/04/23 10:02 92/71 L 11/04/23 10:02 94 H 22 91 11/04/23 10:02 90 92/71 L 11/04/23 10:00 88 26 H 90 11/04/23 09:50 92 H 27 H 93 11/04/23 09:43 103 H 25 H 93 11/04/23 09:30 90 20 95 11/04/23 09:20 92 H 24 87 L 11/04/23 09:18 96 H 19 89 L 11/04/23 09:00 153 H 25 H 95 11/04/23 08:52 101 H 118/88 11/04/23 08:50 95 11/04/23 08:42 93 H 11/04/23 08:40 97 H 29 H 94 11/04/23 08:31 118/88 11/04/23 08:31 114 H 20 92 11/04/23 08:20 112 H 17 94 11/04/23 08:10 91 H 20 92 11/04/23 08:01 104 H 22 95 11/04/23 08:01 117/69 11/04/23 08:00 101 H 19 95 11/04/23 07:58 102 H 15 94 11/04/23 07:57 105 H 16 110/76 93 11/04/23 07:57 93 11/04/23 07:50 108 H 24 94 11/04/23 07:47 105 H 17 94 11/04/23 07:32 36.6 C 92 H 20 141/80 H 97 O2 Del Method O2 Flow Rate 11/04/23 15:21 Room Air 11/04/23 15:21 Room Air 11/04/23 14:30 11/04/23 14:30 11/04/23 14:20 11/04/23 14:17 11/04/23 14:00 11/04/23 14:00 11/04/23 13:50 11/04/23 13:49 Room Air 11/04/23 13:48 11/04/23 13:47 11/04/23 13:46 11/04/23 13:41 11/04/23 13:35 11/04/23 13:10 11/04/23 12:30 11/04/23 12:20 11/04/23 12:12 11/04/23 12:01 11/04/23 12:01 11/04/23 12:00 11/04/23 11:50 11/04/23 11:40 11/04/23 11:31 11/04/23 11:31 11/04/23 11:30 11/04/23 11:20 11/04/23 11:10 11/04/23 11:00 11/04/23 10:50 11/04/23 10:40 11/04/23 10:32 11/04/23 10:32 11/04/23 10:30 11/04/23 10:20 11/04/23 10:10 11/04/23 10:03 Room Air 11/04/23 10:02 11/04/23 10:02 11/04/23 10:02 11/04/23 10:00 11/04/23 09:50 11/04/23 09:43 11/04/23 09:30 11/04/23 09:20 11/04/23 09:18 11/04/23 09:00 11/04/23 08:52 11/04/23 08:50 11/04/23 08:42 11/04/23 08:40 11/04/23 08:31 11/04/23 08:31 11/04/23 08:20 11/04/23 08:10 11/04/23 08:01 11/04/23 08:01 11/04/23 08:00 11/04/23 07:58 Room Air 11/04/23 07:57 Room Air 11/04/23 07:57 Room Air 0 11/04/23 07:50 11/04/23 07:47 11/04/23 07:32 Room Air Laboratory Results Cardiac Enzymes 11/04/23 11/04/23 11/04/23 Range/Units 07:51 10:07 11:35 AST 40 H (13-39) U/L Troponin I High Sens 28.3 H 27.2 H (0-20) pg/ml B-Natriuretic Peptide 633 H (0-100) pg/ml Coagulation 11/04/23 Range/Units 11:35 B-Natriuretic Peptide 633 H (0-100) pg/ml CBC 11/04/23 Range/Units 07:51 WBC 11.09 H (4.8-10.8) K/ul RBC 4.86 (4.70-6.10) M/uL Hgb 13.9 L (14.0-18.0) g/dl Hct 42.9 (42.0-52.0) % Plt Count 240 (130-400) K/uL Neut # (Auto) 8.86 H (1.40-6.50) K/uL Lymph # (Auto) 1.33 (1.20-3.40) K/uL [place] # (Auto) 0.72 H (0.11-0.59) K/uL Eos # (Auto) 0.06 (0.00-0.50) K/uL Baso # (Auto) 0.05 (0.00-0.20) K/uL Comprehensive Metabolic Panel 11/04/23 Range/Units 07:51 Sodium 135 L (136-145) mmol/L Potassium 3.5 (3.5-5.1) mmol/L Chloride 101 (98-107) mmol/L Carbon Dioxide 25 (21-32) mmol/L BUN 19 (6-23) mg/dl Creatinine 1.19 (0.6-1.4) mg/dl Glucose 175 H (70-99(Fasting)) mg/dl Calcium 8.4 L (8.6-10.3) mg/dl AST 40 H (13-39) U/L ALT 74 H (7-52) U/L Alkaline Phosphatase 78 (34-104) U/L Total Protein 7.1 (6.0-8.3) gm/dl Albumin 4.6 (3.4-5.0) gm/dl Intake and Output 11/04/23 11/04/23 11/04/23 06:59 14:59 22:59 Other: Weight 112.9 kg 111.19 kg Weight Measurement Method Standing Scale Patient Weight 11/05/23 06:59 Weight 111.19 kg Diagnostic Findings Telemetry reviewed: Atrial fibrillation with controlled rates in the 80's. Echo completed: LV is severely dilated global thinning of the LV person EF 15-20% severe global hypokinesis. LA is severely dilated Moderate to severe MR estimated systolic pulm pressure is 43 mmHg EKG on arrival: Afib RVR at 104 bmp LAD non specific conduction delay No acute ischemic changes Chest X-Ray 11/04/23 07:44 IMPRESSION: 1. Cardiomegaly and AICD with prominence of the pulmonary vasculature. Correlate clinically for evidence of mild fluid overload/congestive change. 2. No airspace consolidation or pleural effusion is identified. Outpatient device interrogation reviewed from October 19, 2023: 1.17 years battery longevity. Frequent episodes of tachycardia during September and early October, suggestive of recurrent afib. OptiVol fluid accumulation reported early October until date of interrogation. Echo report reviewed from December 2022: LV cavity size is severely enlarged. LVEF 30-34% Diffuse LV hypokinesis LA is moderately enlarged No pulm hypertension Compared to prior study in Aug 2019, EF slightly improved Medications Administered Current Inpatient Medications Allopurinol (Allopurinol 300 Mg Tab) 300 mg PO DAILY TERENCE Stop: 12/05/23 08:59 Amiodarone HCl (Amiodarone 200 Mg Tab) 200 mg PO DAILY TERENCE Stop: 12/05/23 08:59 Dextrose (Dextrose 50% 50 Ml Syringe) 25 - 50 ml IV UD PRN; Protocol PRN Reason: Hypoglycemia Protocol Stop: 12/04/23 10:41 Digoxin (Digoxin 0.125 Mg Tab) 0.125 mg PO DAILY TERENCE Stop: 12/05/23 08:59 Empagliflozin (Empagliflozin 25 Mg Tab) 25 mg PO DAILY TERENCE Stop: 12/05/23 08:59 Furosemide (Furosemide 40 Mg Tab) 40 mg PO BID17 TERENCE Stop: 12/04/23 16:59 Glucagon (Glucagon For Inj 1 Mg Vial) 1 mg SQ UD PRN; Protocol PRN Reason: Hypoglycemia Protocol Stop: 12/04/23 10:41 Glucose (Glucose 40% Gel 15 Gm Tube) 15 - 30 gm PO UD PRN; Protocol PRN Reason: Hypoglycemia Protocol Stop: 12/04/23 10:41 Glucose (Glucose 10 Tab/Tube) 4 - 8 tab PO UD PRN; Protocol PRN Reason: Hypoglycemia Treatment Stop: 12/04/23 10:41 Insulin Aspart (Insulin Aspart Per Unit Charge) 0 units SC ACHS TERENCE Stop: 12/04/23 11:29 Last Admin: 11/04/23 11:30 Dose: Not Given Insulin Glargine (Lantus Per Unit Charge) 5 units SQ BID TERENCE Stop: 12/04/23 20:59 Magnesium Oxide (Magnesium Oxide 400 Mg Tab) 400 mg PO DAILY TERENCE Stop: 12/05/23 08:59 Metoprolol Succinate (Metoprolol Succ 25mg Ext Rel Tab) 25 mg PO BID TERENCE Stop: 12/04/23 20:59 Miscellaneous (Carbohydrates For Hypoglycemia ) 15 - 30 gm PO UD PRN PRN Reason: Hypoglycemia Protocol Stop: 12/04/23 10:41 Potassium Chloride (Potassium Chloride Crtab 20 Meq Tabcr) 20 meq PO BID TERENCE Stop: 12/04/23 16:29 Rivaroxaban (Rivaroxaban 20 Mg Tab) 20 mg PO QDD TERENCE Stop: 12/05/23 16:29 Rosuvastatin Calcium (Rosuvastatin Calcium 10 Mg Tab) 10 mg PO DAILY TERENCE Stop: 12/05/23 08:59
[2023-11-04] MEDS: FUROSEMIDE 40 MG TAB PO SCH (17:06)
[2023-11-04] MEDS: POTASSIUM CHLORIDE CRTAB 20 MEQ TABCR PO SCH (18:29)
[2023-11-04] MEDS ORDERED: POTASSIUM CHLORIDE 10 MEQ TABCR PO SCH (21:00)
[2023-11-04] MEDS: METOPROLOL SUCC 25MG EXT REL TAB PO SCH (21:31)
[2023-11-04] MEDS: LANTUS PER UNIT CHARGE SQ SCH (21:33)
--- OUTSIDE RECORDS SUMMARY | 2023-11-05 05:45 | External Medical Summary | Summary of Care ---
Author Name Unknown Organization [facility] Address [address] [place] [address] Phone [phone] Care Team Providers Care Material Handling Warehouse Supervisor Name Role Phone Samanta Jung MD Primary Care Provider [phone] Reason for Visit * Reason Comments Light treatment No skin reaction fro m previous treatment. Areas of body covered or protected during treatment: face and eyes. Narrow Band UVB 1801millijoules. Patient receives treatment three times weekly. Narrow Band UVB dose to be maintained at 1800 millijoules each treatment.Pt is not taking any antibiotics at this time. Encounter Details Date Type Department Care Team (Late st Contact Info) Description 08/26/2023 8:00 AM EST Nurse Only Dermatology [address] [address] Sp, Nurse Dermatology [address] [place] [id number] Light treatment (No skin reaction from pre... Allergies Active Allergy Reactions Criticality Noted Date Comments Penicillins 02/24/2007 documented as of this encounter (statuses as of 08/26/2023) Medications Medication Sig Dispensed Refills Start Date End Date Status PredniSONE (DELTASONE) 20 MG Tablet Take 1 mg by mouth in the morning. 0 06/30/2016 Active Cholecalciferol (VITAMIN D3) 3000 UNITS Tablet Take 1 Tablet by mouth in the morning. 0 Active Cyanocobalamin (B-12) 1000 MCG Capsule Take 1 Capsule by mouth in the morning. 0 Active metFORMIN HCl 500 MG Oral Tablet (Glucophage) Take 1 Tablet by mouth 2 times a day with morning and evening meals. 0 05/07/2021 Active Jardiance 25 MG Oral Tablet 1 daily 0 10/21/2021 Active Betamethasone Dipropionate 0.05 % External Lotion (Diprosone)Indicatio ns:Psoriasis Apply to torso and extremities twice daily as needed for flares 60 mL 3 03/11/2022 Active Hydrocortisone 2.5 % External CreamIndications:Pso riasis Apply to area behind the ears twice daily as needed for flares 60 g 1 03/11/2022 Active Magnesium Oxide 400 (240 Mg) MG Oral Tablet (Mag-Ox)Indications: Heart failure, systolic, due to idiopathic cardiomyopathy (HCC) TAKE 1 TABLET BY MOUTH ONCE DAILY 90 Tablet 3 08/05/2022 Active Stelara 90 MG/ML Subcutaneous Solution Prefilled Syringe (Ustekinumab)Indicat ions:Psoriatic arthritis (HCC),Other psoriasis Inject 90 mg under the skin every 12 weeks. 1 mL 4 11/18/2022 Active Allopurinol 300 MG Oral Tablet (Zyloprim) Take 1 Tablet by mouth daily. 90 Tablet 0 05/16/2023 Active Amiodarone HCl 200 MG Oral Tablet (Cordarone)Indicatio ns:Atrial fibrillation (HCC),Idiopathic cardiomyopathy (HCC) Take 1 Tablet by mouth in the morning. 90 Tablet 3 05/14/2023 Active Furosemide 40 MG Oral Tablet (Lasix)Indications:I diopathic cardiomegaly,Heart failure, systolic, due to idiopathic cardiomyopathy (HCC) Take 1 tablet in the morning and 1 tablet in the afternoon. 180 Tablet 3 05/14/2023 Active Lisinopril 5 MG Oral Tablet (Prinivil)Indication s:Idiopathic cardiomyopathy (HCC) Take 1 Tablet by mouth in the morning. 90 Tablet 3 05/14/2023 Active Metoprolol Succinate ER 25 MG Oral Tablet Extended Release 24 Hour (toPROL XL)Indications:Heart failure, systolic, due to idiopathic cardiomyopathy (HCC),Paroxysmal atrial fibrillation (HCC) Take 1 Tablet by mouth in the morning and 1 Tablet before bedtime. 180 Tablet 3 05/14/2023 Active Potassium Chloride Concepción ER 10 MEQ Oral Tablet Extended ReleaseIndications:I diopathic cardiomegaly,Heart failure, systolic, due to idiopathic cardiomyopathy (HCC) Take 1 Tablet by mouth in the morning and 1 Tablet before bedtime. 180 Tablet 3 05/14/2023 Active Rosuvastatin Calcium 5 MG Oral Tablet (Crestor)Indications :Mixed hyperlipidemia Take 1 Tablet by mouth in the morning. 90 Tablet 3 05/14/2023 Active Spironolactone 25 MG Oral Tablet (Aldactone)Indicatio ns:Idiopathic cardiomyopathy (HCC) Take 1 Tablet by mouth in the morning. 90 Tablet 3 05/14/2023 Active Rivaroxaban 20 MG Oral Tablet (Xarelto)Indications :Idiopathic cardiomyopathy (HCC),Heart failure, systolic, due to idiopathic cardiomyopathy (HCC) Take 1 Tablet by mouth daily with dinner. 90 Tablet 3 05/14/2023 Active Digoxin 125 MCG Oral Tablet (Lanoxin)Indications :Atrial fibrillation (HCC) Take 1 Tablet by mouth in the morning. 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 NEAL on CPAP 03/25/2007 Overview: CPAP 14-17 [facility] Other psoriasis CHF NYHA class II Gout Obesity, Class I, BMI 30.0-34.9 (see actual BMI) Encounter for long-term (current) use of medicat ions Psoriatic arthritis Hypertension Hyperlipidemia Type 2 diabetes mellitus documented as of this encounter (statuses as of 08/26/2023) Resolved Problems Problem Noted Date Diagnosed Date Resolved Date Severe obesity with body mas s index (BMI) of 35.0 to 39.9 with serious comorbidity 10/01/2009 Overview: Per Obesity Taxonomy ICD-10 update of inactive diagnosis Obesity, BMI not known 12/15/200710/01 Overview: Per Obesity Taxonomy Heart Failure, type unspecified 02/24/2007 02/22/2009 Overview: Per Heart Failure Taxonomy Protocol. CHF NYHA class II 04/12/2013 documented as of this encounter (statuses as of 08/26/2023) Immunizations Name Administration Dates Next Due COVID-19 mRNA, LNP-s, No Pre serve, 2-Dose Series (Moderna) 09/15/2020,08/07/2020 COVID-19, mRNA, LNP-s, PF, B ooster, 100mcg/0.5mg (Moderna) 06/05/2021 PPD 12/01/2017 Pneumococcal Conjugate Vacc, 13 Valent (Prevnar) 03/10/2017 Pneumococcal Polysaccharide PPV23 (Pneumovax) 04/29/2011,04/09/2011 Seasonal Influenza Virus Vac cine, Unspecified Formulation 05/22/2021,03/16/2020,05/17/2019,05/25,05/06/2018,04/23/2017,2015 ,04/18/2013,04/19/2012,03/22/2009 Seasonal Influenza, PF, 6 M & above, IM , (FluLaval or Fluzone) 03/16/2020,05/17/2019 Seasonal Influenza, Split, I IV3, With Preserve, Inj 05/06/2018,03/22/2009 TDAP (age 11 and older)(Adacel) 03/15/2013 documented as of this encounter Social History Tobacco Use Types Packs/Day Years Used Date Smoking Tobacco: Never Smokeless Tobacco: Never Alcohol Use Standard Drinks/Week Comments No 0 (1 standard drink = 0.6 oz pur e alcohol) Sex and Gender Information Value Date Recorded Sex Assigned at Uncertain 11/16/2021 12:53 AM EDT Gender Identity Male 11/16/2021 12:53 AM EDT Sexual Orientation Straight 11/16/2021 12 :53 AM EDT Job Start Date Occupation Industry Not on file Not on file Not on file documented as of this encounter Functional Status Functional Status Response Date of Assess ment Are you deaf or do you have serious difficulty h earing? No 09/26/2016 Are you blind or do you have serious difficulty seeing, even when wearing glasses? No 09/26/2016 Do you have serious difficul ty walking or climbing stairs? (5 years old or older) No 09/26/2016 Do you have difficulty dress ing or bathing? (5 years old or older) No 09/26/2016 Because of a physical, menta l, or emotional condition, do you have difficulty doing errands alone such as visiting a doctor s office or shopping? (15 years old or older) No 09/27/19 17 Cognitive Status Response Date of Assessm ent Because of a physical, menta l, or emotional condition, do you have serious difficulty concentrating, remembering, or making decisions? (5 years old or older) No 09/26/2016 documented as of this encounter Plan of Treatment Upcoming Encounters Date Type Department Care Team (Late st Contact Info) Description 08/28/2023 8:00 AM EST Nurse Only Dermatology [facility] [address] [place], [place] [address] Sp, Nurse Dermatology [address] [facility] [place], [place] [address] 08/31/2023 8:00 AM EST Nurse Only Dermatology [facility] [address] [place], [place] [address] Sp, Nurse Dermatology [address] [place], [place] [address] 09/02/2023 8:00 AM EST Nurse Only Dermatology [facility] [address] [place], [place] [address] Sp, Nurse Dermatology [address] [place] [address] 09/04/2023 8:00 AM EST Nurse Only Dermatology [facility] [address] [place], [place] [address] Sp, Nurse Dermatology [address] [facility] [place], [place] [address] 09/07/2023 8:30 AM EST Nurse Only Dermatology [facility] [address] [place] [address] Sp, Nurse Dermatology [address] [place] [address] 09/09/2023 8:00 AM EST Nurse Only Dermatology [facility] [address] [place] [address] Sp, Nurse Dermatology [address] [place] [address] 09/11/2023 8:00 AM EST Nurse Only Dermatology [facility] [address] [place] [address] Sp, Nurse Dermatology [address] [place] [address] 09/14/2023 8:00 AM EDT Nurse Only Dermatology [facility] [address] [place] [address] Sp, Nurse Dermatology [address] [place] [address] 09/16/2023 8:00 AM EDT Nurse Only [place] [facility] [address] [place] [address] Sp, Nurse Dermatology [address] [place] [address] 09/18/2023 8:00 AM EDT Nurse Only Dermatology [facility] [address] [place] [address] Sp, Nurse Dermatology [address] [place] [address] 09/21/2023 8:00 AM EDT Nurse Only Dermatology [facility] [address] [place] [address] Sp, Nurse Dermatology [address] [place] [address] 09/23/2023 8:00 AM EDT Nurse Only Dermatology [facility] [address] [place] [address] Sp, Nurse Dermatology [address] [place] [address] 09/25/2023 8:00 AM EDT Nurse Only Dermatology [facility] [address] [place] [address] Sp, Nurse Dermatology [address] [place] [address] 09/28/2023 8:00 AM EDT Nurse Only Dermatology [facility] [address] [place] [address] Sp, Nurse Dermatology [address] [place] [address] 09/30/2023 8:00 AM EDT Nurse Only Dermatology [facility] [address] [place] [address] Sp, Nurse Dermatology [address] [place] [address] 10/02/2023 8:00 AM EDT Nurse Only Dermatology [facility] [address] [place] [address] Sp, Nurse Dermatology [address] [place] [address] 10/05/2023 8:00 AM EDT Nurse Only Dermatology [facility] [address] [place] [address] Sp, Nurse Dermatology [address] [place] [address] 10/07/2023 8:00 AM EDT Nurse Only Dermatology [facility] [address] [place], [place] [address] Sp, Nurse Dermatology [address] [place] [address] 10/09/2023 8:00 AM EDT Nurse Only Dermatology [facility] [address] [place] [address] Sp, Nurse Dermatology [address] [place] [address] 10/12/2023 9:00 AM EDT Nurse Only Dermatology [facility] [place] [address] [place] [address] Sp, Nurse Dermatology [address] [place] [address] 10/14/2023 9:00 AM EDT Nurse Only Dermatology [facility] [place] [address] [place] [address] Sp, Nurse Dermatology [address] [place] [address] 10/16/2023 8:00 AM EDT Nurse Only Dermatology [facility] [place] [address] [place] [address] Sp, Nurse Dermatology [address] [place] [address] 10/19/2023 8:00 AM EDT Nurse Only Dermatology [facility] [place] [address] [place] [address] Sp, Nurse Dermatology [address] [place] [address] 10/20/2023 9:45 AM EDT Office Visit Dermatology [facility] [place] [address] [place] [address] Carl Munson MD [address] [place] [address] 11/24/2023 8:00 AM EDT Office Visit Rheumatology [place] [id number] [place] [address] Terell Ward MD [address] [place] [address] Health Maintenance Due Date Last Done Comments Depression Screening 1986 HIV Screening 1989 Albumin/Creatinine Ratio 1992 Diabetic Eye Exam 1992 Diabetic Foot Exam 1992 Hepatitis C Screening 1992 Hepatitis B (1 of 3 - 19+ 3-dose series) 1993 Pap Smear 1995 Cervical Cancer Screening 2004 HPV/Co-Test 2004 Mammogram 2014 Cologuard 2019 Colonoscopy 2019 Colorectal Cancer Screening 2019 Fecal Occult Blood Test 2019 Sigmoidoscopy 2019 DIG LEVEL FOR MEDICATION MONITORING YEARLY 07/07/2020 07/07/2019, 11/11/2018, 02/18/2017, Additional history exists HbA1c 07/17/2021 01/14/2021, 03/10/2017 Influenza Vaccine (FLU shot) (#1) 2023 05/22/2021, 03/16/2020, 03/16/2020, Additional history exists DTaP,Tdap,and Td Vaccines (2 - Td or Tdap) 03/15/2023 03/15/2013 GFR 12/11/2023 12/10/2022, 03/0 03/2022, 07/08/2021, Additional history exists Lipid Panel 09/11/2026 09/11/2021, 09/2021, 01/14/2021, Additional history exists Pneumococcal Vaccine: Pediatrics (0 to 5 Years) and At-Risk Patients (6 to 64 Years) (4 of 4 - PPSV23 or PCV20) 2039 03/10/2017, 04/29/2011, 04/09/2011 COVID-19 Vaccine Completed 06/02/2023, , 06/05/2021, Additional history exists GARDASIL-HPV IMMUNIZATION SERIES Aged Out No longer eligible based on patient's age to complete this topic MENINGOCOCCAL (MENACTRA/MENVEO) Aged Out No longer eligible based on patient's age to complete this topic documented as of this encounter Medical Devices Not on filedocumented as of this encounter Visit Diagnoses Diagnosis Psoriasis vulgaris- Primary Other psoriasis Psoriasis Other psoriasis documented in this encounter Advance Directives Documents on File Type Date Recorded Patient Database Security Expert Expl anation Advance Directives and Living Will 09/26/2016 LIVING WILL DECLARAT ION 01/17/2008 Latest Code Status on File Code Status Date Activated Date Inactivated Comments No Code 09/27/2016 5:27 PM 09/28/2016 3:38 PM This order reflects the patients wishes and were consensually agreed upon. Question Answer Comments Discussion of Advance Directives occurred with: Patient Does the patient have a Living Will? No Does the patient have Health Care Power of Car Repairer [place]? No Code Status History Code Status Date Activated Date Inactivated Comments Full Code 09/26/2016 11:53 AM 09/27/2016 5:27 PM This order reflects the patients wishes and were consensually agreed upon. Question Answer Comments Discussion of Advance Directives occurred with: Patient Does the patient have a Living Will? No Does the patient have Health Care Power of Car Repairer [place]man? No Full Code 01/20/2008 10:58 AM 01/21/2008 1:40 PM Care Teams Material Handling Warehouse Supervisor Relationship Specialty Start Date End Date Samanta Jung MD [address] [place], [place] [address] [address] PCP - General Family Medicine 01/07/18 documented as of this encounter
--- OUTSIDE RECORDS SUMMARY | 2023-11-05 05:45 | External Medical Summary | Summary of Care ---
Author Name Unknown Organization [facility] Address [address] [place] [address] Phone [phone] Care Team Providers Care Court Commissioner Name Role Phone Samanta Jung MD Primary Care Provider [phone] Encounter Details Date Type Department Care Team (Late st Contact Info) Description 10/27/2023 Result Scan Unspecified Department Patricio Johnson MD [address] [place] [address] <No scans attached> Allergies Active Allergy Reactions Criticality Noted Date Comments Penicillins 02/24/2007 documented as of this encounter (statuses as of 10/27/2023) Medications Medication Sig Dispensed Refills Start Date [...] as of this encounter (statuses as of 10/27/2023) Active Problems Problem Noted Date Diagnosed Date Psoriasis 05/21/2021 Aortic root dilatation 03/16/2020 Idiopathic chronic gout of multiple sites withou t tophus 12/06/2018 Epistaxis, recurrent 06/22/2018 DM type 2, [...] as of this encounter (statuses as of 10/27/2023) Resolved Problems Problem Noted Date Diagnosed Date [...] as of this encounter (statuses as of 10/27/2023) Immunizations Name Administration Dates Next Due COVID-19 [...] Care Team (Late st Contact Info) Description 11/24/2023 8:00 AM EDT Office Visit Rheumatology [place] [id number] [employer] [place] [address] Terell Ward MD [address] [place] [address] 01/04/2024 8:30 AM EDT Office Visit Cardiology, [facility] [address] [place] [address] Patricio Johnson MD [address] [place] [address] Health Maintenance Due Date Last Done Comments [...] Additional history exists HbA1c 07/17/2021 01/14/2021, 03/10/2017 DTaP,Tdap,and Td Vaccines (2 - Td or Tdap) 03/15/2023 03/15/2013 GFR 12/11/2023 12/10/2022, 03/2022, 07/08/2021, Additional history exists Influenza Vaccine (FLU shot) (Season Ended) 2024 05/22/2021, 03/16/2020, 03/16/2020, Additional history exists Lipid Panel 09/11/2026 09/11/2021, [...] Not on filedocumented as of this encounter Procedures Procedure Name Priority Date/Time Associated Diagnosis Comments CARDIOLOGY SCANNED RESULT 10/27/2023 documented in this encounter Results * CARDIOLOGY SCANNED RESULT (10/27/2023) 10/27/2023 Patricio Johnson MD OTHER documented in this encounter Advance Directives Documents on File Type Date Recorded Patient Auto Research Engineer Expl anation Advance Directives and Living Will [...] the patient have Health Care Power of Crew Clerk? No Code Status History Code Status Date Activated Date Inactivated Comments Full Code 09/26/2016 11:53 AM 09/27/2016 5:27 PM This order reflects the patients wishes and were consensually agreed upon. Question Answer Comments Discussion of Advance Directives occurred with: Patient Does the patient have a Living Will? No Does the patient have Health Care Power of Crew Clerk? No Full Code 01/20/2008 10:58 AM 01/21/2008 1:[address] Commissioner Relationship Specialty Start Date End Date [facility] [address] [facility] [place] [address] PCP - General Family Medicine 01/07/18 documented as of this encounter
--- OUTSIDE RECORDS SUMMARY | 2023-11-05 05:45 | External Medical Summary | Summary of Care ---
Author Name Unknown Organization [facility] Address [address] [place] [address] Phone [phone] Care Team Providers Care Astronaut Mission Specialist Name Role Phone Samanta Jung MD Primary Care Provider [phone] Reason for Visit * Reason Comments Light treatment No skin reaction fro m previous treatment. Areas of body covered or protected during treatment: face and eyes. Narrow Band UVB 1802millijoules. Patient receives treatment three times weekly. Narrow Band UVB dose to be maintained at 1800 millijoules each treatment. Encounter Details Date Type Department Care Team (Late st Contact Info) Description 08/28/2023 8:00 AM EST Nurse Only Dermatology [address] [address] Sp, Nurse Dermatology [address] [place] [phone] Light treatment (No skin reaction from pre... Allergies Active Allergy Reactions Criticality Noted Date Comments Penicillins 02/24/2007 documented as of this encounter (statuses as of 08/28/2023) Medications Medication Sig Dispensed Refills Start Date [...] as of this encounter (statuses as of 08/28/2023) Active Problems Problem Noted Date Diagnosed Date [...] as of this encounter (statuses as of 08/28/2023) Resolved Problems Problem Noted Date Diagnosed Date [...] as of this encounter (statuses as of 08/28/2023) Immunizations Name Administration Dates Next Due COVID-19 [...] Care Team (Late st Contact Info) Description 08/31/2023 8:00 AM EST Nurse Only Dermatology [facility] [address] [place], [place] [address] Sp, Nurse Dermatology [address] [place], [place] [address] 09/02/2023 8:00 AM EST Nurse Only Dermatology [facility] [address] [place], [place] [address] Sp, Nurse Dermatology [address] [place], [place] [address] 09/04/2023 8:00 AM EST Nurse Only Dermatology [facility] [address] [place], [place] [address] Sp, Nurse Dermatology [address] [place] [address] 09/07/2023 8:30 AM EST Nurse Only Dermatology [facility] [address] [place] [address] Sp, Nurse Dermatology [address] [place], [place] [address] 09/09/2023 8:00 AM EST Nurse Only Dermatology [facility] [address] [place] [address] Sp, Nurse Dermatology [address] [place] [address] 09/11/2023 8:00 AM EST Nurse Only Dermatology [facility] [address] [place] [address] Sp, Nurse Dermatology [address] [place] [address] 09/14/2023 8:00 AM EDT Nurse Only Dermatology [facility] [address] [place] [address] Sp, Nurse Dermatology [address] [place] [address] 09/16/2023 8:00 AM EDT Nurse Only Dermatology [facility] [address] [place] [address] Sp, Nurse Dermatology [address] [place] [address] 09/18/2023 8:00 AM EDT Nurse Only Dermatology [address] [place] [address] [place] [address] Sp, Nurse Dermatology [address] [place] [address] 09/21/2023 8:00 AM EDT Nurse Only Dermatology [facility] [address] [place] [address] Sp, Nurse Dermatology [address] [place] [address] 09/23/2023 8:00 AM EDT Nurse Only Dermatology [facility] [address] [place] [address] [place] [address] Sp, Nurse Dermatology [address] [place] [address] 09/25/2023 8:00 AM EDT Nurse Only Dermatology [facility] [address] [place] [address] Sp, Nurse Dermatology [address] [place] [address] 09/28/2023 8:00 AM EDT Nurse Only Dermatology [facility] [address] [place] [address] Sp, Nurse Dermatology [address] [place] [address] 09/30/2023 8:00 AM EDT Nurse Only Dermatology [facility] [address] [place] [address] Sp, Nurse Dermatology [address] [place] [address] 10/02/2023 8:00 AM EDT Nurse Only Dermatology [facility] [address] [place] [address] Sp, Nurse Dermatology [address] [place] [address] 10/05/2023 8:00 AM EDT Nurse Only Dermatology [facility] [place] [address] [place] [address] Sp, Nurse Dermatology [address] [place] [address] 10/07/2023 8:00 AM EDT Nurse Only Dermatology [facility] [address] [place] [address] Sp, Nurse Dermatology [address] [place] [address] 10/09/2023 8:00 AM EDT Nurse Only Dermatology [facility] [address] [place] [address] Sp, Nurse Dermatology [address] [place] [address] 10/12/2023 9:00 AM EDT Nurse Only Dermatology [facility] [address] [place] [address] Sp, Nurse Dermatology [address] [place] [address] 10/14/2023 9:00 AM EDT Nurse Only Dermatology [facility] [place] [address] [place] [address] Sp, Nurse Dermatology [address] [place] [address] 10/16/2023 8:00 AM EDT Nurse Only Dermatology [facility] [place] [address] [place] [address] Sp, Nurse Dermatology [address] [place] [address] 10/19/2023 8:00 AM EDT Nurse Only Dermatology [facility] [place] [address] [place], [place] [address] Sp, Nurse Dermatology [address] [place] [address] 10/20/2023 9:45 AM EDT Office Visit Dermatology [facility] [place] [address] [place] [address] Carl Munson MD [address] [place] [address] 11/24/2023 8:00 AM EDT Office Visit Rheumatology [place] [address] [place] [address] Terell Ward MD [address] [place] [address] Health Maintenance Due Date Last Done Comments [...] or Tdap) 03/15/2023 03/15/2013 GFR 12/11/2023 12/10/2022, 0303/2022, 07/08/2021, Additional history exists Lipid Panel 09/11/2026 [...] Documents on File Type Date Recorded 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 No Code Status History Code Status Date Activated Date Inactivated Comments Full Code 09/26/2016 11:53 AM 09/27/2016 5:27 PM This order reflects the patients wishes and were consensually agreed upon. Question Answer Comments Discussion of Advance Directives occurred with: Patient Does the patient have a Living Will? No Does the patient have Health Care Power of Supervisor Correspondence Section? No Full Code 01/20/2008 10:58 AM 01/21/2008 1:40 PM Care Teams Astronaut Mission Specialist Relationship Specialty Start [place] [address] [place], [place] [address] [id number] PCP - General Family Medicine 01/07/18 documented as of this encounter
--- OUTSIDE RECORDS SUMMARY | 2023-11-05 05:46 | External Medical Summary | Summary of Care ---
Author Name Unknown Organization [facility] Address [address] [place] [address] Phone [phone] Care Team Providers Care Transport Truck Driver Name Role Phone Samanta Jung MD Primary Care Provider [phone] Reason for Visit * Reason Comments Light treatment No skin reaction fro m previous treatment. Areas of body covered or protected during treatment: face and eyes. Narrow Band UVB 1801millijoules. Patient receives treatment three times weekly. Narrow Band UVB dose to be maintained at 1800 millijoules each treatment. Pt states he is not taking any antibiotics. Encounter Details Date Type Department Care Team (Late st Contact Info) Description 08/17/2023 8:00 AM EST Nurse Only Dermatology [address] [address] Sp, Nurse Dermatology [address] [place] [phone] Light treatment (No skin reaction from pre... Allergies Active Allergy Reactions Criticality Noted Date Comments Penicillins 02/24/2007 documented as of this encounter (statuses as of 08/17/2023) Medications Medication Sig Dispensed Refills Start Date [...] as of this encounter (statuses as of 08/17/2023) Active Problems Problem Noted Date Diagnosed Date [...] as of this encounter (statuses as of 08/17/2023) Resolved Problems Problem Noted Date Diagnosed Date [...] as of this encounter (statuses as of 08/17/2023) Immunizations Name Administration Dates Next Due COVID-19 [...] Care Team (Late st Contact Info) Description 08/19/2023 8:00 AM EST Nurse Only Dermatology [facility] [address] [place], [place] [address] Sp, Nurse Dermatology 200 [facility] [place], [place] [address] 08/21/2023 8:00 AM EST Nurse Only Dermatology [facility] [address] [place], [place] [address] Sp, Nurse Dermatology [address] [place], [place] [address] 08/24/2023 8:00 AM EST Nurse Only Dermatology [facility] [address] [place], [place] [address] Sp, Nurse Dermatology [address] [place], [place] [address] 08/26/2023 8:00 AM EST Nurse Only Dermatology [facility] [address] [place], [place] [address] Sp, Nurse Dermatology 200 [facility] [place], [place] [address] 08/28/2023 8:00 AM EST Nurse Only Dermatology [facility] [address] [place] [address] Sp, Nurse Dermatology [address] [place] [address] 08/31/2023 8:00 AM EST Nurse Only Dermatology [facility] [address] [place] [address] Sp, Nurse Dermatology [address] [place] [address] 09/02/2023 8:00 AM EST Nurse Only Dermatology [facility] [address] [place] [address] Sp, Nurse Dermatology [address] [place] [address] 09/04/2023 8:00 AM EST Nurse Only Dermatology [facility] [address] [place] [address] Sp, Nurse Dermatology [address] [place] [address] 09/07/2023 8:30 AM EST Nurse Only Dermatology [facility] [address] [place] [address] Sp, Nurse Dermatology [address] [place] [address] 09/09/2023 8:00 AM EST Nurse Only Dermatology [facility] [address] [place] [address] Sp, Nurse Dermatology [address] [place] [address] 09/11/2023 8:00 AM EST Nurse Only Dermatology [facility] [address] [place] [address] Sp, Nurse Dermatology [address] [place] [address] 10/20/2023 9:45 AM EDT Office Visit Dermatology [facility] [address] [place] [address] Carl Munson MD 200 [facility] [place], [place] [address] 11/24/2023 8:00 AM EDT Office Visit Rheumatology [facility] [address] [place] [address] Terell Ward MD [address] [employer] [place], [place] [address] Health Maintenance Due Date Last Done Comments Hepatitis B (1 of 3 - 3-dose series) 1974 Depression Screening 1986 HIV Screening 1989 Albumin/Creatinine Ratio 1992 Diabetic Eye Exam 1992 Diabetic Foot Exam 1992 Hepatitis C Screening 1992 Pap Smear 1995 Cervical Cancer Screening 2004 [...] 12/11/2023 12/10/2022, 03/2022, 07/08/2021, Additional history exists Lipid Panel 09/11/2026 09/11/2021, 09/2021, 01/14/2021, Additional history exists Pneumococcal Vaccine: Pediatrics (0 to 5 Years) and At-Risk Patients (6 to 64 Years) (4 - PPSV23 or PCV20) 2039 03/10/2017, 04/29/2011, [...] Documents on File Type Date Recorded Patient Instructor Nurse Expl anation Advance Directives and Living Will [...] the patient have Health Care Power of Blood Donor Recruiter Supervisor? No Code Status History Code Status Date Activated Date Inactivated Comments Full Code 09/26/2016 11:53 AM 09/27/2016 5:27 PM This order reflects the patients wishes and were consensually agreed upon. Question Answer Comments Discussion of Advance Directives occurred with: Patient Does the patient have a Living Will? No Does the patient have Health Care Power of Blood Donor Recruiter Supervisor? No Full Code 01/20/2008 10:58 AM 01/21/2008 1:40 PM Care Teams Transport Truck Driver Relationship Specialty Start Date End Date Samanta Jung MD [address] [place] [address] [place] [address] PCP - General Family Medicine 01/07/18 documented as of this encounter
--- OUTSIDE RECORDS SUMMARY | 2023-11-05 05:46 | External Medical Summary | Summary of Care ---
Author Name Unknown Organization [facility] Address [address] [place] [address] Phone [phone] Care Team Providers Care Gas Compressor Turbine Operator Name Role Phone Samanta Jung MD Primary Care Provider [phone] Reason for Visit * Reason Comments Light treatment No skin reaction fro m previous treatment. Areas of body covered or protected during treatment: face and eyes. Narrow Band UVB 1802millijoules. Patient receives treatment three times weekly. Narrow Band UVB dose to be maintained at 1800 millijoules each treatment. Encounter Details Date Type Department Care Team (Late st Contact Info) Description 08/14/2023 8:00 AM EST Nurse Only Dermatology [address] [address] Sp, Nurse Dermatology [address] [place] [phone] Light treatment (No skin reaction from pre... Allergies Active Allergy Reactions Criticality Noted Date Comments Penicillins 02/24/2007 documented as of this encounter (statuses as of 08/14/2023) Medications Medication Sig Dispensed Refills Start Date [...] as of this encounter (statuses as of 08/14/2023) Active Problems Problem Noted Date Diagnosed Date [...] as of this encounter (statuses as of 08/14/2023) Resolved Problems Problem Noted Date Diagnosed Date [...] as of this encounter (statuses as of 08/14/2023) Immunizations Name Administration Dates Next Due COVID-19 [...] 08/17/2023 8:00 AM EST Nurse Only Dermatology [facility] [address] [place], [place] [address] Sp, Nurse Dermatology [address] [place], [place] [address] 08/19/2023 8:00 AM EST Nurse Only Dermatology [facility] [address] [place], [place] [address] Sp, Nurse Dermatology [address] [place], [place] [address] 08/21/2023 8:00 AM EST Nurse Only Dermatology [facility] [address] [place], [place] [address] Sp, Nurse Dermatology [address] [place], [place] [address] 08/24/2023 8:00 AM EST Nurse Only Dermatology [facility] [address] [place], [place] [address] Sp, Nurse Dermatology [address] [place], [place] [address] 08/26/2023 8:00 AM EST Nurse Only Dermatology [facility] [address] [place] [address] Sp, Nurse Dermatology [address] [place] [address] 08/28/2023 8:00 AM EST Nurse Only Dermatology [facility] [address] [place] [address] Sp, Nurse Dermatology [address] [place] [address] 08/31/2023 8:00 AM EST Nurse Only Dermatology [facility] [address] [place] [address] Sp, Nurse Dermatology [address] [place] [address] 09/02/2023 8:00 AM EST Nurse Only Dermatology [facility] [address] [place] [address] Sp, Nurse Dermatology [address] [place] [address] 09/04/2023 8:00 AM EST Nurse Only Dermatology [facility] [address] [place] [address] Sp, Nurse Dermatology [address] [place] [address] 09/07/2023 8:30 AM EST Nurse Only Dermatology [facility] [address] [place] [address] Sp, Nurse Dermatology [address] [place] [address] 09/09/2023 8:00 AM EST Nurse Only Dermatology [facility] [address] [place] [address] Sp, Nurse Dermatology [address] [place] [address] 09/11/2023 8:00 AM EST Nurse Only Dermatology [facility] [address] [place] [address] Sp, Nurse Dermatology 200 [place] [address] 09/14/2023 10:30 AM EDT Office Visit Cardiology, [facility] [address] [place] [address] Patricio Johnson MD [address] [place] [address] 10/20/2023 9:45 AM EDT Office Visit Dermatology [facility] [address] [facility] [place] [address] Carl Munson MD [address] [facility] [place] [address] 11/24/2023 8:00 AM EDT Office Visit Rheumatology [facility] [address] [employer] [place], [place] [address] Terell Ward MD [address] [employer] [place], [place] [address] Health Maintenance Due Date Last Done Comments [...] Documents on File Type Date Recorded Patient Visual Educator Expl anation Advance Directives and Living Will [...] the patient have Health Care Power of Electron Beam Operator? No Code Status History Code Status Date Activated Date Inactivated Comments Full Code 09/26/2016 11:53 AM 09/27/2016 5:27 PM This order reflects the patients wishes and were consensually agreed upon. Question Answer Comments Discussion of Advance Directives occurred with: Patient Does the patient have a Living Will? No Does the patient have Health Care Power of Electron Beam Operator? No Full Code 01/20/2008 10:58 AM 01/21/2008 1:40 PM Care Teams Gas Compressor Turbine Operator Relationship Specialty [place] [address] [place] [address] [place] [address] PCP - General Family Medicine 01/07/18 documented as of this encounter
--- OUTSIDE RECORDS SUMMARY | 2023-11-05 05:46 | External Medical Summary | Summary of Care ---
Author Name Unknown Organization [facility] Address [address] [place] [address] Phone [phone] Care Team Providers Care Snowblower Mechanic Name Role Phone Samanta Jung MD Primary Care Provider [phone] Reason for Visit * Reason Comments Light treatment No skin reaction fro m previous treatment. Areas of body covered or protected during treatment: face and eyes. Narrow Band UVB 1807millijoules. Patient receives treatment three times weekly. Narrow Band UVB dose to be maintained at 1800 millijoules each treatment. Patient is not on any antibiotics at this time. Encounter Details Date Type Department Care Team (Late st Contact Info) Description 08/10/2023 9:00 AM EST Nurse Only Dermatology [address] [address] Sp, Nurse Dermatology [address] [place] [phone] Light treatment (No skin reaction from pre... Allergies Active Allergy Reactions Criticality Noted Date Comments Penicillins 02/24/2007 documented as of this encounter (statuses as of 08/13/2023) Medications Medication Sig Dispensed Refills Start Date [...] as of this encounter (statuses as of 08/13/2023) Active Problems Problem Noted Date Diagnosed Date [...] as of this encounter (statuses as of 08/13/2023) Resolved Problems Problem Noted Date Diagnosed Date [...] as of this encounter (statuses as of 08/13/2023) Immunizations Name Administration Dates Next Due COVID-19 [...] 08/14/2023 8:00 AM EST Nurse Only Dermatology [facility] [address] [place], [place] [address] Sp, Nurse Dermatology 200 [facility] [place], [place] [address] 08/17/2023 8:00 AM EST Nurse Only Dermatology [facility] [address] [place], [place] [address] Sp, Nurse Dermatology [address] [place], [place] [address] 08/19/2023 8:00 AM EST Nurse Only Dermatology [facility] [address] [place], [place] [address] Sp, Nurse Dermatology [address] [place] [address] 08/21/2023 8:00 AM EST Nurse Only Dermatology [facility] [address] [place], [place] [address] Sp, Nurse Dermatology 200 [facility] [place], [place] [address] 08/24/2023 8:00 AM EST Nurse Only Dermatology [facility] [address] [place] [address] Sp, Nurse Dermatology [address] [place] [address] 08/26/2023 8:00 AM EST Nurse Only Dermatology [facility] [address] [place] [address] Sp, Nurse Dermatology [address] [place] [address] 08/28/2023 8:00 AM EST Nurse Only Dermatology [facility] [address] [place] [address] Sp, Nurse Dermatology [address] [place] [address] 08/31/2023 8:00 AM EST Nurse Only Dermatology [facility] [address] [place] [address] Sp, Nurse Dermatology [address] [place] [address] 09/02/2023 8:00 AM EST Nurse Only Dermatology [facility] [address] [place] [address] Sp, Nurse Dermatology [address] [place] [address] 09/04/2023 8:00 AM EST Nurse Only Dermatology [facility] [address] [place] [address] Sp, Nurse Dermatology [address] [place] [address] 09/07/2023 8:30 AM EST Nurse Only Dermatology [facility] [address] [place] [address] Sp, Nurse Dermatology [address] [place] [address] 09/09/2023 8:00 AM EST Nurse Only Dermatology [facility] [address] [place] [address] Sp, Nurse Dermatology [address] [place] [address] 09/11/2023 8:00 AM EST Nurse Only Dermat[facility] [address] [place] [address] Sp, Nurse Dermatology [address] [place] [address] 09/14/2023 10:30 AM EDT Office Visit [facility] [address] [facility] [address] [facility] [place] [address] 10/20/2023 9:45 AM EDT Office Visit Dermatology [facility] [address] [place] [address] Carl Munson MD [address] [place], [place] [address] 11/24/2023 8:00 AM EDT Office Visit Rheumatology [facility] [address] [employer] [place], [place] [address] Terell Ward MD [address] [place], [place] [address] Health Maintenance Due Date Last Done Comments [...] as of this encounter Visit Diagnoses Diagnosis Psoriasis- Primary Other psoriasis documented in this encounter Advance Directives Documents on File Type Date Recorded Patient Import And Export Clerk Expl anation Advance Directives and Living Will [...] the patient have Health Care Power of Banana Room Cutter? No Code Status History Code Status Date Activated Date Inactivated Comments Full Code 09/26/2016 11:53 AM 09/27/2016 5:27 PM This order reflects the patients wishes and were consensually agreed upon. Question Answer Comments Discussion of Advance Directives occurred with: Patient Does the patient have a Living Will? No Does the patient have Health Care Power of Banana Room Cutter? No Full Code 01/20/2008 10:58 AM 01/21/2008 1:40 PM Care Teams Snowblower Mechanic Relationship Specialty Start [place] [address] [place], [place] [address] [id number] PCP - General Family Medicine 01/07/18 documented as of this encounter
--- OUTSIDE RECORDS SUMMARY | 2023-11-05 05:46 | External Medical Summary | Summary of Care ---
Author Name Unknown Organization [facility] Address [address] [place] [address] Phone [phone] Care Team Providers Care Photoengraving Etcher Apprentice Name Role Phone Samanta Jung MD Primary Care Provider [phone] Reason for Visit * Reason Comments Light treatment No skin reaction fro m previous treatment. Areas of body covered or protected during treatment: face and eyes. Narrow Band UVB 1804millijoules. Patient receives treatment three times weekly. Narrow Band UVB dose to be maintained at 1800 millijoules each treatment. Pt is not taking any antibiotics at this time. Encounter Details Date Type Department Care Team (Late st Contact Info) Description 08/21/2023 8:00 AM EST Nurse Only Dermatology [address] [address] Sp, Nurse Dermatology [address] [place] [id number] Light treatment (No skin reaction from pre... Allergies Active Allergy Reactions Criticality Noted Date Comments Penicillins 02/24/2007 documented as of this encounter (statuses as of 08/21/2023) Medications Medication Sig Dispensed Refills Start Date [...] as of this encounter (statuses as of 08/21/2023) Active Problems Problem Noted Date Diagnosed Date [...] as of this encounter (statuses as of 08/21/2023) Resolved Problems Problem Noted Date Diagnosed Date [...] as of this encounter (statuses as of 08/21/2023) Immunizations Name Administration Dates Next Due COVID-19 [...] Care Team (Late st Contact Info) Description 08/24/2023 8:00 AM EST Nurse Only Dermatology [facility] [address] [place], [place] [address] Sp, Nurse Dermatology 200 [facility] [place], [place] [address] 08/26/2023 8:00 AM EST Nurse Only Dermatology [facility] [address] [place], [place] [address] Sp, Nurse Dermatology [address] [place], [place] [address] 08/28/2023 8:00 AM EST Nurse Only Dermatology [facility] [address] [place], [place] [address] Sp, Nurse Dermatology [address] [place] [address] 08/31/2023 8:00 AM EST Nurse Only Dermatology [facility] [address] [place], [place] [address] Sp, Nurse Dermatology 200 [facility] [place], [place] [address] 09/02/2023 8:00 AM EST Nurse Only Dermatology [facility] [address] [place] [address] Sp, Nurse Dermatology [address] [place] [address] 09/04/2023 8:00 AM EST Nurse Only Dermatology [facility] [address] [place] [address] Sp, Nurse Dermatology [address] [place] [address] 09/07/2023 8:30 AM EST Nurse Only Dermatology [facility] [address] [place] [address] Sp, Nurse Dermatology [address] [place] [address] 09/09/2023 8:00 AM EST Nurse Only Dermatology [facility] [address] [place] [address] Sp, Nurse Dermatology [address] [place] [address] 09/11/2023 8:00 AM EST Nurse Only Dermatology [facility] [address] [place] [address] Sp, Nurse Dermatology [address] [place] [address] 09/14/2023 8:00 AM EDT Nurse Only Dermatology [facility] [address] [place] [address] Sp, Nurse Dermatology [address] [place] [address] 09/16/2023 8:00 AM EDT Nurse Only Dermatology [facility] [address] [place] [address] Sp, Nurse Dermatology [address] [place] [address] 09/18/2023 8:00 AM EDT Nurse Only Dermatology [facility] [address] [place] [address] Sp, Nurse Dermatology [address] [place] [address] 09/21/2023 8:00 AM EDT Nurse Only Dermatology [facility] [address] [place] [address] Sp, Nurse Dermatology [address] [place] [address] 09/23/2023 8:00 AM EDT Nurse Only Dermatology [facility] [address] [place] [address] Sp, Nurse Dermatology [address] [place] [address] 09/25/2023 8:00 AM EDT Nurse Only Dermatology [facility] [address] [place] [address] Sp, Nurse Dermatology [address] [place] [address] 09/28/2023 8:00 AM EDT Nurse Only Dermatology [facility] [address] [place] [address] Sp, Nurse Dermatology [address] [place] [address] 09/30/2023 8:00 AM EDT Nurse Only Dermatology [facility] [address] [place] [address] Sp, Nurse Dermatology [address] [place] [address] 10/02/2023 8:00 AM EDT Nurse Only Dermatology [facility] [address] [place] [address] Sp, Nurse Dermatology [address] [place] [address] 10/05/2023 8:00 AM EDT Nurse Only Dermatology [facility] [address] [place] [address] Sp, Nurse Dermatology [address] [place] [address] 10/07/2023 8:00 AM EDT [facility] [address] [place] [address] Sp, Nurse Dermatology [address] [place] [address] 10/09/2023 8:00 AM EDT [facility] [address] [place] [address] Sp, Nurse Dermatology [address] [place] [address] 10/12/2023 9:00 AM EDT Nurse Only Dermatology [facility] [address] [place] [address] Sp, Nurse Dermatology [address] [place] [address] 10/14/2023 9:00 AM EDT Nurse Only Dermatology [facility] [place] [address] [place] [address] Sp, Nurse Dermatology [address] [place] [address] 10/16/2023 8:00 AM EDT Nurse Only [facility] [address] [place] [address] Sp, Nurse Dermatology [address] [place] [address] 10/19/2023 8:00 AM EDT Nurse Only Dermatology [facility] [place] [address] [place] [address] Sp, Nurse Dermatology [address] [place] [address] 10/20/2023 9:45 AM EDT Office Visit Dermatology [facility] [address] [place] [address] Carl Munson MD [address] [place] [address] 11/24/2023 8:00 AM EDT Office Visit Rheumatology [facility] [address] [employer] [place] [address] Terell Ward MD [address] [place], [place] [address] Health Maintenance Due Date Last Done Comments [...] Documents on File Type Date Recorded Patient Therapeutic Radiologist Expl anation Advance Directives and Living Will [...] the patient have Health Care Power of Probate Paralegal? No Code Status History Code Status Date Activated Date Inactivated Comments Full Code 09/26/2016 11:53 AM 09/27/2016 5:27 PM This order reflects the patients wishes and were consensually agreed upon. Question Answer Comments Discussion of Advance Directives occurred with: Patient Does the patient have a Living Will? No Does the patient have Health Care Power of Probate Paralegal? No Full Code 01/20/2008 10:58 AM 01/21/2008 1:40 PM Care Teams Photoengraving Etcher Apprentice Relationship Specialty Start Date End Date Samanta Jung MD [address] [place] [address] [place] [id number] PCP - General Family Medicine 01/07/18 documented as of this encounter
--- OUTSIDE RECORDS SUMMARY | 2023-11-05 05:47 | External Medical Summary | Summary of Care ---
Author Name Unknown Organization [facility] Address [address] [place] [address] Phone [phone] Care Team Providers Care Insurance Account Specialist Name Role Phone Samanta Jung MD Primary Care Provider [phone] Reason for Visit * Reason Comments Defibrillator Clinic Encounter Details Date Type Department Care Team (Latest Contact Info) Description 08/07/2023 9:30 AM EST Cardiac Studies Cardiology, [facility] [address] [place] [address] [place], Pacer Clinic [facility] [address] [place] [address] Paroxysmal atrial fibrillation (HCC)*; Idiopathic cardiomyopathy (HCC); Automatic implantable cardioverter-defibrill ator in situ Allergies Active Allergy Reactions Criticality Noted Date Comments Penicillins 02/24/2007 documented as of this encounter (statuses as of 08/07/2023) Medications Medication Sig Dispensed Refills Start Date [...] as of this encounter (statuses as of 08/07/2023) Active Problems Problem Noted Date Diagnosed Date [...] as of this encounter (statuses as of 08/07/2023) Resolved Problems Problem Noted Date Diagnosed Date [...] as of this encounter (statuses as of 08/07/2023) Immunizations Name Administration Dates Next Due COVID-19 [...] No 09/26/2016 documented as of this encounter Nursing Notes * Yelena Marroquin LPN - 08/07/2023 8:52 AM EST Patient and implanted device were evaluated today in the [facility]. Providers please see scanned report in the Scans tab. Per [employer] device advisory: Programed all HV therapy pathways B>AX in all therapy zones . Left pectoral device pocket is healthy without erythema, swelling, pain, or drainage. Patient had multiple episodes of SVT that coincides with increased activity. Increased VT monitor zone to 154bpm. Thoracic impedance monitoring: Fluid index reveals a baseline thoracic impedance indicating normal fluid status. Interrogation by Kb Segura of [employer] and Yelena Marroquin LPN documented in this encounter Plan of Treatment Upcoming Encounters Date Type Department Care Team (Late st Contact Info) Description 08/10/2023 9:00 AM EST Nurse Only Dermatology [facility] [place] [address] [place], [place] [address] Sp, Nurse Dermatology [address] [facility] [address] [place], [place] [address] 08/12/2023 8:30 AM EST Nurse Only Dermatology [facility] [place] [address] [place] [address] Sp, Nurse Dermatology 200 [facility] [place] [address] 08/14/2023 8:00 AM EST Nurse Only Dermatology [facility] [address] [place] [address] Sp, Nurse Dermatology [address] [place] [address] 08/17/2023 8:00 AM EST Nurse Only Dermatology [facility] [address] [place] [address] Sp, Nurse Dermatology [address] [place] [address] 08/19/2023 8:00 AM EST Nurse Only Dermatology [facility] [address] [place] [address] Sp, Nurse Dermatology [address] [place] [address] 08/21/2023 8:00 AM EST Nurse Only Dermatology [facility] [address] [place] [address] Sp, Nurse Dermatology [address] [place] [address] 08/24/2023 8:00 AM EST Nurse Only Dermatology [facility] [address] [place] [address] Sp, Nurse Dermatology [address] [place] [address] 08/26/2023 8:00 AM EST Nurse Only Dermatology [facility] [address] [place] [address] Sp, Nurse Dermatology [address] [place] [address] 08/28/2023 8:00 AM EST Nurse Only Dermatology [facility] [address] [place] [address] Sp, Nurse Dermatology [address] [place] [address] 08/31/2023 8:00 AM EST Nurse Only Dermatology [facility] [address] [place] [address] Sp, Nurse Dermatology [address] [place] [address] 09/02/2023 8:00 AM EST Nurse Only Dermatology [facility] [address] [place] [address] Sp, Nurse Dermatology [address] [place] [address] 09/04/2023 8:00 AM EST Nurse Only Dermatology [facility] [address] [place] [address] Sp, Nurse Dermatology [address] [place] [address] 09/07/2023 8:30 AM EST Nurse Only Dermatology [facility] [address] [place] [address] Sp, Nurse Dermatology [address] [place] [address] 09/09/2023 8:00 AM EST Nurse Only Dermatology [facility] [address] [place] [address] Sp, Nurse Dermatology [address] [place] [address] 09/11/2023 8:00 AM EST Nurse Only Dermatology [facility] [address] [place] [address] Sp, Nurse Dermatology [address] [place] [address] 09/14/2023 10:30 AM EDT Office Visit Cardiology, [facility] [address] [place] [address] Patricio Johnson MD [address] [place] [address] 10/20/2023 9:45 AM EDT Office Visit Dermatology [facility] 200 [facility] [place], [place] [address] Carl Munson MD 200 [facility] [place] [address] 11/24/2023 8:00 AM EDT Office Visit Rheumatology [facility] [address] [facility] [place] [address] Terell Ward MD [address] [place], [place] [address] Scheduled Orders Name Type Priority Associated Diagnoses Orde r Schedule SINGLE-LEAD DEFIBRILLATOR + REPROGRAM Procedures Routine Paroxysmal atrial fibrillation (HCC) Idiopathic cardiomyopathy (HCC) Automatic implantable cardioverter-defibrillat or in situ Ordered: 08/07/2023 Health Maintenance Due Date Last Done Comments [...] as of this encounter Visit Diagnoses Diagnosis Paroxysmal atrial fibrillation (HCC)- Primary Atrial fibrillation Idiopathic cardiomyopathy (HCC) Other primary cardiomyopathies Automatic implantable cardioverter-defibrillator in situ documented in this encounter Advance Directives Documents on File Type Date Recorded Patient Classifier Expl anation Advance Directives and Living Will [...] the patient have Health Care Power of Account Manager Relief? No Code Status History Code Status Date Activated Date Inactivated Comments Full Code 09/26/2016 11:53 AM 09/27/2016 5:27 PM This order reflects the patients wishes and were consensually agreed upon. Question Answer Comments Discussion of Advance Directives occurred with: Patient Does the patient have a Living Will? No Does the patient have Health Care Power of Account Manager Relief? No Full Code 01/20/2008 10:58 AM 01/21/2008 1:40 PM Care Teams Insurance Account Specialist Relationship Specialty [place] [address] [place] [address] [place] [address] PCP - General Family Medicine 01/07/18 documented as of this encounter
--- OUTSIDE RECORDS SUMMARY | 2023-11-05 05:47 | External Medical Summary | Summary of Care ---
Author Name Unknown Organization [facility] Address [address] [place] [address] Phone [phone] Care Team Providers Care President Name Role Phone Samanta Jung MD Primary Care Provider [phone] Reason for Visit * Reason Comments Light treatment No skin reaction fro m previous treatment. Areas of body covered or protected during treatment: face and eyes. Narrow Band UVB 1805millijoules. Patient receives treatment three times weekly. Narrow Band UVB dose to be maintained at 1800 millijoules each treatment. Encounter Details Date Type Department Care Team (Late st Contact Info) Description 08/12/2023 8:30 AM EST Nurse Only Dermatology [address] [address] Sp, Nurse Dermatology [address] [place] [id number] Light treatment (No skin reaction from pre... Allergies Active Allergy Reactions Criticality Noted Date Comments Penicillins 02/24/2007 documented as of this encounter (statuses as of 08/12/2023) Medications Medication Sig Dispensed Refills Start Date [...] as of this encounter (statuses as of 08/12/2023) Active Problems Problem Noted Date Diagnosed Date [...] as of this encounter (statuses as of 08/12/2023) Resolved Problems Problem Noted Date Diagnosed Date [...] as of this encounter (statuses as of 08/12/2023) Immunizations Name Administration Dates Next Due COVID-19 [...] 08/14/2023 8:00 AM EST Nurse Only Dermatology [facility] [address] [place], [place] [address] Sp, Nurse Dermatology [address] [place], [place] [address] 08/17/2023 8:00 AM EST Nurse Only Dermatology [facility] [address] [place], [place] [address] Sp, Nurse Dermatology [address] [place], [place] [address] 08/19/2023 8:00 AM EST Nurse Only Dermatology [facility] [address] [place], [place] [address] Sp, Nurse Dermatology [address] [place], [place] [address] 08/21/2023 8:00 AM EST Nurse Only Dermatology [facility] [address] [place], [place] [address] Sp, Nurse Dermatology [address] [place], [place] [address] 08/24/2023 8:00 AM EST Nurse Only Dermatology [facility] [address] [place] [address] Sp, Nurse Dermatology [address] [place] [address] 08/26/2023 8:00 AM EST Nurse Only Dermatology [facility] [address] [place] [address] Sp, Nurse Dermatology [address] [place] [address] 08/28/2023 8:00 AM EST Nurse Only Dermatology [facility] [address] [place] [address] Sp, Nurse Dermatology [address] [place] [address] 08/31/2023 8:00 AM EST Nurse Only Dermatology [facility] [address] [place] [address] Sp, Nurse Dermatology [address] [place] [address] 09/02/2023 8:00 AM EST Nurse Only Dermatology [facility] [address] [place] [address] Sp, Nurse Dermatology [address] [place] [address] 09/04/2023 8:00 AM EST Nurse Only Dermatology [facility] [address] [place] [address] Sp, Nurse Dermatology [address] [place] [address] 09/07/2023 8:30 AM EST Nurse Only Dermatology [facility] [address] [place] [address] Sp, Nurse Dermatology [address] [place] [address] 09/09/2023 8:00 AM EST Nurse Only Dermatology [facility] [address] [place] [address] Sp, Nurse Dermatology [address] [facility] [place], [place] [address] 09/11/2023 8:00 AM EST Nurse Only Dermatology [facility] [address] [place] [address] Sp, Nurse Dermatology [address] [facility] [place] [address] 09/14/2023 10:30 AM EDT Office Visit Cardiology, [facility] [address] [facility] [place] [address] Patricio Johnson MD 132 [facility] [place] [address] 10/20/2023 9:45 AM EDT Office Visit Dermatology [facility] [address] [place] [address] Cral Munson MD [address] 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 No Code Status History Code Status Date Activated Date Inactivated Comments Full Code 09/26/2016 11:53 AM 09/27/2016 5:27 PM This order reflects the patients wishes and were consensually agreed upon. Question Answer Comments Discussion of Advance Directives occurred with: Patient Does the patient have a Living Will? No Does the patient have Health Care Power of Garbage Depot Worker? No Full Code 01/20/2008 10:58 AM 01/21/2008 1:40 PM Care Teams President Relationship Specialty [place] [address] [place] [address] [place] [address] PCP - General Family Medicine 01/07/18 documented as of this encounter
--- OUTSIDE RECORDS SUMMARY | 2023-11-05 05:47 | External Medical Summary | Summary of Care ---
Author Name Unknown Organization [facility] Address [address] [place] [address] Phone [phone] Care Team Providers Care Port Steward Name Role Phone Samanta Jung MD Primary Care Provider [phone] Encounter Details Date Type Department Care Team (Late st Contact Info) Description 07/31/2023 Result Scan Unspecified Department Patricio Johnson MD 132 [place] [address] <No scans attached> Allergies Active Allergy Reactions Criticality Noted Date Comments Penicillins 02/24/2007 documented as of this encounter (statuses as of 07/31/2023) Medications Medication Sig Dispensed Refills Start Date [...] as of this encounter (statuses as of 07/31/2023) Active Problems Problem Noted Date Diagnosed Date [...] as of this encounter (statuses as of 07/31/2023) Resolved Problems Problem Noted Date Diagnosed Date [...] as of this encounter (statuses as of 07/31/2023) Immunizations Name Administration Dates Next Due COVID-19 [...] Care Team (Late st Contact Info) Description 08/03/2023 8:00 AM EST Nurse Only Dermatology [facility] [place] [address] [place] [address] Sp, Nurse Dermatology [address] [place] [address] 08/07/2023 8:00 AM EST Cardiac Studies Cardiology, [facility] [address] [place] [address] [facility] [address] [place] [address] 08/10/2023 9:00 AM EST Nurse Only Dermatology [facility] [place] [address] [place], [place] [address] Sp, Nurse Dermatology [address] [place], [place] [address] 08/12/2023 8:30 AM EST Nurse Only Dermatology [facility] [place] [address] [place], [place] [address] Sp, Nurse Dermatology [address] [place] [address] 08/14/2023 8:00 AM EST Nurse Only Dermatology [facility] [place] [address] [place] [address] Sp, Nurse Dermatology [address] [place] [address] 08/17/2023 8:00 AM EST Nurse Only Dermatology [facility] [place] [address] [place] [address] Sp, Nurse Dermatology [address] [place] [address] 08/19/2023 8:00 AM EST Nurse Only Dermatology [facility] [address] [place] [address] Sp, Nurse Dermatology [address] [place] [address] 08/21/2023 8:00 AM EST Nurse Only Dermatology [facility] [address] [place] [address] Sp, Nurse Dermatology [address] [place] [address] 08/24/2023 8:00 AM EST Nurse Only Dermatology [facility] [address] [place] [address] Sp, Nurse Dermatology [address] [place] [address] 08/26/2023 8:00 AM EST Nurse Only Dermatology [facility] [address] [place] [address] Sp, Nurse Dermatology [address] [place] [address] 08/28/2023 8:00 AM EST Nurse Only Dermatology [facility] [address] [place] [address] Sp, Nurse Dermatology [address] [place] [address] 08/31/2023 8:00 AM EST Nurse Only Dermatology [facility] [address] [place] [address] Sp, Nurse Dermatology [address] [place] [address] 09/02/2023 8:00 AM EST Nurse Only Dermatology [facility] [address] [place] [address] Sp, Nurse Dermatology [address] [place] [address] 09/04/2023 8:00 AM EST Nurse Only Dermatology [facility] [address] [place] [address] Sp, Nurse Dermatology [address] [place] [address] 09/07/2023 8:30 AM EST Nurse Only Dermatology [facility] [address] [place] [address] Sp, Nurse Dermatology [address] [place] [address] 09/09/2023 8:00 AM EST Nurse Only Dermatology [facility] [address] [place] [address] Sp, Nurse Dermatology [address] [place] [address] 09/11/2023 8:00 AM EST Nurse Only Dermatology [facility] [address] [place] [address] Sp, Nurse Dermatology [address] [place] [address] 09/14/2023 10:30 AM EDT Office Visit Cardiology, [facility] 132 [facility] [place] [address] Patricio Johnson MD 132 [facility] [place] [address] 11/03/2023 9:45 AM EDT Office Visit Dermatology [facility] [address] [place] [address] Carl Munson MD [address] [place] [address] 11/24/2023 8:00 AM EDT Office Visit Rheumatology [address] [place] [address] Terell Ward MD [address] [place], [place] [address] Health Maintenance Due Date Last Done Comments [...] Date/Time Associated Diagnosis Comments CARDIOLOGY SCANNED RESULT 07/31/2023 documented in this encounter Results * CARDIOLOGY SCANNED RESULT (07/31/2023) 07/31/2023 Patricio Johnson MD OTHER documented in this encounter Advance Directives Documents on File Type Date Recorded Patient Belt Loop Maker Expl anation Advance Directives and Living Will [...] the patient have Health Care Power of Rehabilitation Physician? No Code Status History Code Status Date Activated Date Inactivated Comments Full Code 09/26/2016 11:53 AM 09/27/2016 5:27 PM This order reflects the patients wishes and were consensually agreed upon. Question Answer Comments Discussion of Advance Directives occurred with: Patient Does the patient have a Living Will? No Does the patient have Health Care Power of Rehabilitation Physician? No Full Code 01/20/2008 10:58 AM 01/21/2008 1:40 PM Care Teams Port Steward Relationship Specialty Start Date End Date Samanta Jung MD [address] [place], [place] [address] [address] PCP - General Family Medicine 01/07/18 documented as of this encounter
--- OUTSIDE RECORDS SUMMARY | 2023-11-05 05:47 | External Medical Summary | Summary of Care ---
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 [address] [facility], [place] [address] [place], [facility] 132 [facility], [place] [address] 08/10/2023 9:00 AM EST Nurse Only Dermatology [facility] [place] [address] [place], [place] [address] Sp, Nurse Dermatology [address] [place], [place] [address] 08/12/2023 8:30 AM EST Nurse Only Dermatology [facility] [place] [address] [place], [place] [address] Sp, Nurse Dermatology [address] [place], [place] [address] 08/14/2023 8:00 AM EST Nurse Only Dermatology [facility] [place] [address] [place], [place] [address] Sp, Nurse Dermatology [address] [place], [place] [address] 08/17/2023 8:00 AM EST Nurse Only Dermatology [facility]en[facility] [address] [place] [address] Sp, Nurse Dermatology [address] [place] [address] 08/19/2023 8:00 AM EST Nurse Only Dermatology [facility] [address] [place] [address] Sp, Nurse Dermatology [address] [place] [address] 08/21/2023 8:00 AM EST Nurse Only Dermatology [facility] [address] [place] [address] Sp, Nurse Dermatology [address] [place] [address] 08/24/2023 8:00 AM EST Nurse Only Dermatology [facility] [address] [place] [address] Sp, Nurse Dermatology [address] [place] [address] 08/26/2023 8:00 AM EST Nurse Only Dermatology [facility] [address] [place] [address] Sp, Nurse Dermatology [address] [place] [address] 08/28/2023 8:00 AM EST Nurse Only Dermatology [facility] [address] [place] [address] Sp, Nurse Dermatology [address] [place] [address] 08/31/2023 8:00 AM EST Nurse Only Dermatology [facility] [address] [place] [address] Sp, Nurse Dermatology [address] [place] [address] 09/02/2023 8:00 AM EST Nurse Only Dermatology [facility] [address] [place] [address] Sp, Nurse Dermatology [address] [place] [address] 09/04/2023 8:00 AM EST Nurse Only Dermatology [facility] [address] [place] [address] Sp, Nurse Dermatology [address] [place] [address] 09/07/2023 8:30 AM EST Nurse Only Dermatology [facility] [address] [place] [address] Sp, Nurse Dermatology [address] [place] [address] 09/09/2023 8:00 AM EST Nurse Only Dermatology [facility] [address] [place] [address] Sp, Nurse Dermatology [address] [place] [address] 09/11/2023 8:00 AM EST Nurse Only Dermatology [facility] [address] [place] [address] Sp, Nurse Dermatology [address] [place] [address] 09/14/2023 10:30 AM EDT Office Visit Cardiology, [facility] [address] [place] [address] Patricio Johnson MD [address] [place] [id number] 11/03/2023 9:45 AM EDT Office Visit Dermatology [facility] [address] [place] [address] Carl Munson MD [address] [place] [address] 11/24/2023 8:00 AM EDT Office Visit Rheumatology [facility] [address] [facility] [place], [place] [address] Terell Ward MD [address] [employer] [place] [address] Health Maintenance Due Date Last Done Comments [...] Additional history exists Lipid Panel 09/11/2026 09/11/2021, 010 09/2021, 01/14/2021, Additional history exists Pneumococcal Vaccine: [...] Documents on File Type Date Recorded Patient Travel Rn Or Expl anation Advance Directives and Living Will [...] the patient have Health Care Power of Nuclear Medicine Medical Director? No Code Status History Code Status Date Activated Date Inactivated Comments Full Code 09/26/2016 11:53 AM 09/27/2016 5:27 PM This order reflects the patients wishes and were consensually agreed upon. Question Answer Comments Discussion of Advance Directives occurred with: Patient Does the patient have a Living Will? No Does the patient have Health Care Power of Nuclear Medicine Medical Director? No Full Code 01/20/2008 10:58 AM 01/21/2008 1:40 PM Care Teams Millwright Instructor Relationship Specialty Start Date End Date Samanta Jung MD [address] [facility] [place] [address] PCP - General Family Medicine 01/07/18 documented as of this encounter
--- OUTSIDE RECORDS SUMMARY | 2023-11-05 05:47 | External Medical Summary | Summary of Care ---
Author Name Unknown Organization [facility] Address [address] [place] [address] Phone [phone] Care Team Providers Care Toy Packer Name Role Phone Samanta Jung MD Primary Care Provider [phone] Encounter Details Date Type Department Care Team (Late st Contact Info) Description 08/10/2023 Result Scan Unspecified Department Patricio Johnson MD 132 [facility] [place] [address] <No scans attached> Allergies Active Allergy Reactions Criticality Noted Date Comments Penicillins 02/24/2007 documented as of this encounter (statuses as of 08/10/2023) Medications Medication Sig Dispensed Refills Start Date [...] as of this encounter (statuses as of 08/10/2023) Active Problems Problem Noted Date Diagnosed Date [...] as of this encounter (statuses as of 08/10/2023) Resolved Problems Problem Noted Date Diagnosed Date [...] as of this encounter (statuses as of 08/10/2023) Immunizations Name Administration Dates Next Due COVID-19 [...] 08/12/2023 8:30 AM EST Nurse Only Dermatology [facility] [address] [place] [address] Sp, Nurse Dermatology [address] [place] [address] 08/14/2023 8:00 AM EST Nurse Only Dermatology [facility] [address] [place], [place] [address] Sp, Nurse Dermatology [address] [place], [place] [address] 08/17/2023 8:00 AM EST [facility] Only [facility] [address] [place] [address] Sp, Nurse Dermatology [address] [place] [address] 08/19/2023 8:00 AM EST Nurse Only Dermatology [facility] [place] [address] [place] [address] Sp, Nurse Dermatology [address] [place] [address] 08/21/2023 8:00 AM EST Nurse Only [facility] [place] [address] [place] [address] Sp, Nurse Dermatology [address] [place] [address] 08/24/2023 8:00 AM EST Nurse Only [facility] [place] [address] [place] [address] Sp, Nurse Dermatology [address] [place] [address] 08/26/2023 8:00 AM EST Nurse Only Dermatology [facility] [address] [place] [address] Sp, Nurse Dermatology [address] [place] [address] 08/28/2023 8:00 AM EST Nurse Only Dermatology [facility] [address] [place] [address] Sp, Nurse Dermatology [address] [place] [address] 08/31/2023 8:00 AM EST Nurse Only Dermatology [facility] [address] [place] [address] Sp, Nurse Dermatology [address] [place] [address] 09/02/2023 8:00 AM EST Nurse Only Dermatology [facility] [address] [place] [address] Sp, Nurse Dermatology [address] [place] [address] 09/04/2023 8:00 AM EST Nurse Only Dermatology [facility] [address] [place] [address] Sp, Nurse Dermatology [address] [place] [address] 09/07/2023 8:30 AM EST Nurse Only Dermatology [facility] [address] [place] [address] Sp, Nurse Dermatology [address] [place] [address] 09/09/2023 8:00 AM EST Nurse Only Dermatology [facility] [address] [place] [address] Sp, Nurse Dermatology [address] [place] [address] 09/11/2023 8:00 AM EST Nurse Only Dermatology [facility] [address] [place] [address] Sp, Nurse Dermatology 200 [place] [address] 09/14/2023 10:30 AM EDT Office Visit Cardiology, [facility] [place] [address] Patricio Johnson MD [address] [place] [address] 10/20/2023 9:45 AM EDT Office Visit Dermatology [facility] [address] [place] [address] Carl Munson MD 200 [facility] [place] [address] 11/24/2023 8:00 AM EDT Office Visit Rheumatology [facility] [address] [employer] [place], [place] [address] Terell Ward MD [address] [employer] [place], [place] [address] Health Maintenance Due Date Last Done Comments [...] Date/Time Associated Diagnosis Comments CARDIOLOGY SCANNED RESULT 08/10/2023 documented in this encounter Results * CARDIOLOGY SCANNED RESULT (08/10/2023) 08/10/2023 Patricio Johnson MD OTHER documented in this encounter Advance Directives Documents on File Type Date Recorded 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 No Code Status History Code Status Date Activated Date Inactivated Comments Full Code 09/26/2016 11:53 AM 09/27/2016 5:27 PM This order reflects the patients wishes and were consensually agreed upon. Question Answer Comments Discussion of Advance Directives occurred with: Patient Does the patient have a Living Will? No Does the patient have Health Care Power of Inventory Checker? No Full Code 01/20/2008 10:58 AM 01/21/2008 1:40 PM Care Teams Toy Packer Relationship Specialty Start Date End Date Samanta Jung MD [address] [place] [address] [place] [address] PCP - General Family Medicine 01/07/18 documented as of this encounter
--- OUTSIDE RECORDS SUMMARY | 2023-11-05 05:48 | External Medical Summary | Summary of Care ---
Author Name Unknown Organization [facility] Address [address] [place] [address] Phone [phone] Care Team Providers Care Bobj Developer Name Role Phone Samanta Jung MD Primary Care Provider [phone] Reason for Visit * Reason Comments Phototherapy [id number] Encounter Details Date Type Department Care Team (Late st Contact Info) Description 07/27/2023 8:30 AM EST Nurse Only Dermatology [facility] [address] [place] [address] Sp, Nurse Dermatology 200 [place] [address] Phototherapy ([id number] [id number] mj) Allergies Active Allergy Reactions Criticality Noted Date Comments Penicillins 02/24/2007 documented as of this encounter (statuses as of 07/27/2023) Medications Medication Sig Dispensed Refills Start Date [...] as of this encounter (statuses as of 07/27/2023) Active Problems Problem Noted Date Diagnosed Date Psoriasis 05/21/2021 Aortic root dilatation 03/16/2020 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 Areas of body covered or protected during treatment: faceand eyes. Narrow Band UVB 1808 millijoules. Patient receives treatment three times weekly. Narrow Band UVB dose to be maintained at 1800 millijoules each treatment. documented in this encounter Plan of Treatment Upcoming Encounters Date Type Department Care Team (Late st Contact Info) Description 07/29/2023 8:00 AM EST Nurse Only Dermatology [facility] [place] [address] [place] [address] Sp, Nurse Dermatology [address] [place] [address] 07/31/2023 8:00 AM EST Nurse Only Dermatology [facility] [place] [address] [place] [address] Sp, Nurse Dermatology [address] [place] [address] 08/03/2023 8:00 AM EST Nurse Only Dermatology [facility] Ni [place] [address] [place] [address] Sp, Nurse Dermatology [address] [place] [address] 08/05/2023 8:00 AM EST Nurse Only Dermatology [facility] [place] [address] [place] [address] Sp, Nurse Dermatology [address] [place] [address] 08/07/2023 8:00 AM EST Cardiac Studies Cardiology, [facility] [address] [place] [address] [place], Pacer Clinic [facility] 132 [facility] [place] [address] 08/10/2023 9:00 AM EST Nurse Only Dermatology [facility] [address] [place], [place] [address] Sp, Nurse Dermatology [address] [place], [place] [address] 08/12/2023 8:30 AM EST Nurse Only Dermatology [facility] [place] [address] [place], [place] [address] Sp, Nurse Dermatology [address] [place], [place] [address] 08/14/2023 8:00 AM EST Nurse Only Dermatology [facility] [place] [address] [place], [place] [address] Sp, Nurse Dermatology [address] [place], [place] [address] 08/17/2023 8:00 AM EST Nurse Only Dermatology [facility] [place] [address] [place] [address] Sp, Nurse Dermatology [address] [place] [address] 08/19/2023 8:00 AM EST Nurse Only Dermatology [facility] [place] [address] [place] [address] Sp, Nurse Dermatology [address] [place], [place] [address] 08/21/2023 8:00 AM EST Nurse Only [facility] [address] [place] [address] Sp, Nurse Dermatology [address] [place] [address] 08/24/2023 8:00 AM EST Nurse Only Dermatology [facility] [address] [place] [address] Sp, Nurse Dermatology [address] [place] [address] 08/26/2023 8:00 AM EST Nurse Only Dermatology [facility] [address] [place] [address] Sp, Nurse Dermatology [address] [place] [address] 08/28/2023 8:00 AM EST Nurse Only Dermatology [facility] [address] [place] [address] Sp, Nurse Dermatology [address] [place] [address] 08/31/2023 8:00 AM EST Nurse Only Dermatology [facility] [address] [place] [address] Sp, Nurse Dermatology [address] [place] [address] 09/02/2023 8:00 AM EST Nurse Only Dermatology [facility] [address] [place] [address] Sp, Nurse Dermatology [address] [place] [address] 09/04/2023 8:00 AM EST Nurse Only Dermatology [facility] [address] [place] [address] Sp, Nurse Dermatology [address] [place] [address] 09/07/2023 8:30 AM EST Nurse Only Dermatology [facility] [address] [place] [address] Sp, Nurse Dermatology [address] [place] [address] 09/09/2023 8:00 AM EST Nurse Only Dermatology [facility] [place] [address] [place], [place] [address] Sp, Nurse Dermatology [address] [place] [address] 09/11/2023 8:00 AM EST Nurse Only Dermatology [facility] [place] [address] [place] [address] Sp, Nurse Dermatology 200 [facility] [place], [place] [address] 09/14/2023 10:30 AM EDT Office Visit Cardiology, [facility] 132 [facility] [place] [address] Patricio Johnson MD 132 [facility] [place] [address] 11/03/2023 9:45 AM EDT Office Visit Dermatology [facility] [address] [place], [place] [address] Carl Munson MD [address] [place], [place] [address] 11/24/2023 8:00 AM EDT Office Visit Rheumatology [place] [address] [facility] [place] [address] Terell Ward MD [address] [place] [address] Health Maintenance Due Date Last Done Comments [...] Documents on File Type Date Recorded Patient Dope Sprayer Expl anation Advance Directives and Living Will [...] the patient have Health Care Power of Black Pickler? No Code Status History Code Status Date Activated Date Inactivated Comments Full Code 09/26/2016 11:53 AM 09/27/2016 5:27 PM This order reflects the patients wishes and were consensually agreed upon. Question Answer Comments Discussion of Advance Directives occurred with: Patient Does the patient have a Living Will? No Does the patient have Health Care Power of Black Pickler? No Full Code 01/20/2008 10:58 AM 01/21/2008 1:40 PM Care Teams Bobj Developer Relationship Specialty Start Date End Date Samanta Jung MD [address] [place], [place] [address] [address] PCP - General Family Medicine 01/07/18 documented as of this encounter
--- OUTSIDE RECORDS SUMMARY | 2023-11-05 05:48 | External Medical Summary | Summary of Care ---
Author Name Unknown Organization [facility] Address [address] [place] [address] Phone [phone] Care Team Providers Care Forensic Artist Name Role Phone Samanta Jung MD Primary Care Provider [phone] Reason for Visit * Reason Comments Phototherapy NBUVB 1800 mj Encounter Details Date Type Department Care Team (Late st Contact Info) Description 07/20/2023 8:00 AM EST Nurse Only Dermatology [facility] [address] [place] [address] Sp, Nurse Dermatology [address] [place] [address] Phototherapy (NBUVB 1800 mj) Allergies Active Allergy Reactions Criticality Noted Date Comments Penicillins 02/24/2007 documented as of this encounter (statuses as of 07/20/2023) Medications Medication Sig Dispensed Refills Start Date [...] as of this encounter (statuses as of 07/20/2023) Active Problems Problem Noted Date Diagnosed Date [...] as of this encounter (statuses as of 07/20/2023) Resolved Problems Problem Noted Date Diagnosed Date [...] as of this encounter (statuses as of 07/20/2023) Immunizations Name Administration Dates Next Due COVID-19 [...] Nursing Notes * Lulu Wellington LPN - 07/20/2023 8:44 AM EST No skin reaction from previous treatment. Areas of body covered or protected during treatment: faceand eyes. Narrow Band UVB 1800 millijoules. Patient receives treatment three times weekly. Narrow Band UVB dose to be maintained at 1800 millijoules each treatment. documented in this encounter Plan of Treatment Upcoming Encounters Date Type Department Care Team (Late st Contact Info) Description 07/22/2023 8:00 AM EST Nurse Only Dermatology [facility] [place] [address] [place] [address] Sp, Nurse Dermatology [address] [place] [address] 07/24/2023 8:00 AM EST Nurse Only Dermatology [facility] [place] [address] [place] [address] Sp, Nurse Dermatology [address] [place] [address] 07/27/2023 8:30 AM EST Nurse Only Dermatology [facility] [place] [address] [place] [address] Sp, Nurse Dermatology [address] [place] [address] 07/29/2023 8:00 AM EST Nurse Only Dermatology [facility] [place] [address] [place] [address] Sp, Nurse Dermatology [address] [place] [address] 07/31/2023 8:00 AM EST Nurse Only Dermatology Scenery [facility] [address] [place] [address] Sp, Nurse Dermatology [address] [place] [address] 08/03/2023 8:00 AM EST Nurse Only Dermatology [facility] [address] [place] [address] Sp, Nurse Dermatology [address] [place] [address] 08/05/2023 8:00 AM EST Nurse Only Dermatology [facility] [address] [place] [address] Sp, Nurse Dermatology [address] [place] [address] 08/07/2023 8:00 AM EST Cardiac Studies Cardiology, [facility] [address] [place] [address] [place], Pacer [facility] 132 [facility] [place] [address] 08/10/2023 9:00 AM EST Nurse Only Dermatology [facility] [address] [place] [address] Sp, Nurse Dermatology [address] [place] [address] 08/12/2023 8:30 AM EST Nurse Only Dermatology [facility] [address] [place] [address] Sp, Nurse Dermatology [address] [place] [address] 08/14/2023 8:00 AM EST Nurse Only Dermatology [facility] [address] [place] [address] Sp, Nurse Dermatology [address] [place] [address] 08/17/2023 8:00 AM EST Nurse Only Dermatology Scenery [facility] [address] [place] [address] Sp, Nurse Dermatology [address] [place] [address] 08/19/2023 8:00 AM EST Nurse Only Dermatology [place]ery [facility] [address] [place] [address] Sp, Nurse Dermatology [address] [place] [address] 08/21/2023 8:00 AM EST Nurse Only Dermatology [place]ery [facility] [address] [place] [address] Sp, Nurse Dermatology [address] [place] [address] 08/24/2023 8:00 AM EST Nurse Only Dermatology Scenery [facility] [address] [place] [address] Sp, Nurse Dermatology [address] [place] [address] 08/26/2023 8:00 AM EST Nurse Only Dermatology [place]enery [facility] [address] [place] [address] Sp, Nurse Dermatology [address] [place] [address] 08/28/2023 8:00 AM EST Nurse Only Dermatology Scenery [facility] [address] [place] [address] Sp, Nurse Dermatology [address] [place] [address] 08/31/2023 8:00 AM EST Nurse Only Dermatology Scenery [facility] [address] [place] [address] Sp, Nurse Dermatology [address] [place] [address] 09/02/2023 8:00 AM EST Nurse Only Dermatology Scenery [facility] [address] [place] [address] Sp, Nurse Dermatology [address] [place] [address] 09/04/2023 8:00 AM EST Nurse Only Dermatology Scenery [facility] [address] [place] [address] Sp, Nurse Dermatology [address] [place] [address] 09/07/2023 8:30 AM EST Nurse Only Dermatology [facility] [address] [place] [address] Sp, Nurse Dermatology [address] [place] [address] 09/09/2023 8:00 AM EST Nurse Only Dermatology [facility] [address] [place] [address] Sp, Nurse Dermatology [address] [place] [address] 09/11/2023 8:00 AM EST Nurse Only Dermatology [facility] [address] [place] [address] Sp, Nurse Dermatology [address] [place] [address] 09/14/2023 10:30 AM EDT Office Visit Cardiology, [facility] [address] [place] [address] Patricio Johnson MD [address] [place] [place] [address] 11/03/2023 9:45 AM EDT Office Visit Dermatology [facility] [address] [place] [address] Carl Munson MD [address] [place], [place] [address] 11/24/2023 8:00 AM EDT Office Visit Rheumatology [facility] [address] [place] [address] Terell Ward MD [address] [place], [place] [address] Health Maintenance Due Date Last Done Comments [...] Documents on File Type Date Recorded Patient Record Tester Expl anation Advance Directives and Living Will [...] the patient have Health Care Power of Press Assistant? No Code Status History Code Status Date Activated Date Inactivated Comments Full Code 09/26/2016 11:53 AM 09/27/2016 5:27 PM This order reflects the patients wishes and were consensually agreed upon. Question Answer Comments Discussion of Advance Directives occurred with: Patient Does the patient have a Living Will? No Does the patient have Health Care Power of Press Assistant? No Full Code 01/20/2008 10:58 AM 01/21/2008 1:40 PM Care Teams Forensic Artist Relationship Specialty Start Date End Date Samanta Jung MD [address] [place], [place] [address] [address] PCP - General Family Medicine 01/07/18 documented as of this encounter
--- OUTSIDE RECORDS SUMMARY | 2023-11-05 05:48 | External Medical Summary | Summary of Care ---
Author Name Unknown Organization [facility] Address [address] [place] [address] Phone [phone] Care Team Providers Care Collection Advisor Name Role Phone Samanta Jung MD Primary Care Provider [phone] Reason for Visit * Reason Comments Phototherapy NBUVB 1808 mj Encounter Details Date Type Department Care Team (Late st Contact Info) Description 07/22/2023 8:00 AM EST Nurse Only Dermatology [facility] [address] [place] [address] Sp, Nurse Dermatology 200 [place] [address] Phototherapy (NBUVB 1808 mj) Allergies Active Allergy Reactions Criticality Noted Date Comments Penicillins 02/24/2007 documented as of this encounter (statuses as of 07/22/2023) Medications Medication Sig Dispensed Refills Start Date [...] as of this encounter (statuses as of 07/22/2023) Active Problems Problem Noted Date Diagnosed Date [...] as of this encounter (statuses as of 07/22/2023) Resolved Problems Problem Noted Date Diagnosed Date [...] as of this encounter (statuses as of 07/22/2023) Immunizations Name Administration Dates Next Due COVID-19 [...] (15 years old or older) No 09/27/19 Cognitive Status Response Date of Assessm ent Because of a physical, menta l, or emotional condition, do you have serious difficulty concentrating, remembering, or making decisions? (5 years old or older) No 09/26/2016 documented as of this encounter Nursing Notes * Lulu Wellington LPN - 07/22/2023 8:35 AM EST No skin reaction from previous treatment. Areas of body covered or protected during treatment: faceand eyes. Narrow Band UVB 1808 millijoules. Patient receives treatment three times weekly. Narrow Band UVB dose to be maintained at 1800 millijoules each treatment. documented in this encounter Plan of Treatment Upcoming Encounters Date Type Department Care Team (Late st Contact Info) Description 07/24/2023 8:00 AM EST Nurse Only Dermatology [facility] [place] [address] [place] [address] Sp, Nurse Dermatology [address] [place] [address] 07/27/2023 8:30 AM EST Nurse Only Dermatology [facility] [place] [address] [place] [address] Sp, Nurse Dermatology [address] [place] [address] 07/29/2023 8:00 AM EST Nurse Only Dermatology [facility] [place] [address] [place] [address] Sp, Nurse Dermatology [address] [place] [address] 07/31/2023 8:00 AM EST Nurse Only Dermatology [facility] [place] [address] [place] [address] Sp, Nurse Dermatology [address] [place] [address] 08/03/2023 8:00 AM EST Nurse Only Dermatology Scenery [facility] [address] [place] [address] Sp, Nurse Dermatology [address] [place] [address] 08/05/2023 8:00 AM EST Nurse Only Dermatology Scenery [facility] [address] [place] [address] Sp, Nurse Dermatology [address] [place] [address] 08/07/2023 8:00 AM EST Cardiac Studies Cardiology, [facility] [address] [place] [address] [place] Pacer [facility] 132 [place] [address] 08/10/2023 9:00 AM EST Nurse Only Dermatology [facility] [address] [place] [address] Sp, Nurse Dermatology [address] [place], [place] [address] 08/12/2023 8:30 AM EST Nurse Only Dermatology [place] [place] [address] [place] [address] Sp, Nurse Dermatology [address] [place] [address] 08/14/2023 8:00 AM EST [facility] [place] [address] [place] [address] Sp, Nurse Dermatology [address] [place] [address] 08/17/2023 8:00 AM EST [facility] [address] [place] [address] Sp, Nurse Dermatology [address] [place] [address] 08/19/2023 8:00 AM EST Nurse Only Dermatology Scenery [facility] [address] [place] [address] Sp, Nurse Dermatology [address] [place] [address] 08/21/2023 8:00 AM EST Nurse Only Dermatology Scenery [facility] [address] [place] [address] Sp, Nurse Dermatology [address] [place] [address] 08/24/2023 8:00 AM EST Nurse Only Dermatology Scenery [facility] [address] [place] [address] Sp, Nurse Dermatology [address] [place] [address] 08/26/2023 8:00 AM EST Nurse Only Dermatology Scenery [facility] [address] [place] [address] Sp, Nurse Dermatology [address] [place] [address] 08/28/2023 8:00 AM EST Nurse Only Dermatology Scenery [facility] [address] [place] [address] Sp, Nurse Dermatology [address] [place] [address] 08/31/2023 8:00 AM EST Nurse Only Dermatology Scenery [facility] [address] [place] [address] Sp, Nurse Dermatology [address] [place] [address] 09/02/2023 8:00 AM EST Nurse Only Dermatology Scenery [facility] [address] [place] [address] Sp, Nurse Dermatology [address] [place] [address] 09/04/2023 8:00 AM EST Nurse Only [facility] [address] [place] [address] Sp, Nurse Dermatology [address] [place] [address] 09/07/2023 8:30 AM EST Nurse Only [facility] [address] [place] [address] Sp, Nurse Dermatology [address] [place] [address] 09/09/2023 8:00 AM EST Nurse Only Dermatology [facility] [address] [place] [address] Sp, Nurse Dermatology [address] [place] [address] 09/11/2023 8:00 AM EST Nurse Only Dermatology [facility] [address] [place] [address] Sp, Nurse Dermatology [address] [place] [address] 09/14/2023 10:30 AM EDT Office Visit Cardiology, [facility] 132 [facility] [place] [address] Patricio Johnson MD 132 [facility] [place] [address] 11/03/2023 9:45 AM EDT Office Visit Dermatology [facility] [address] [place] [address] Carl Munson MD [address] [place] [address] 11/24/2023 8:00 AM EDT Office Visit Rheumatology [address] [place] [address] Terell Ward MD [address] [place], [place] [address] Health Maintenance Due Date Last Done Comments [...] Documents on File Type Date Recorded 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 No Code Status History Code Status Date Activated Date Inactivated Comments Full Code 09/26/2016 11:53 AM 09/27/2016 5:27 PM This order reflects the patients wishes and were consensually agreed upon. Question Answer Comments Discussion of Advance Directives occurred with: Patient Does the patient have a Living Will? No Does the patient have Health Care Power of New Product Trainer? No Full Code 01/20/2008 10:58 AM 01/21/2008 1:40 PM Care Teams Collection Advisor Relationship Specialty Start Date End Date Samanta Jung MD [address] [place] [address] [place] [address] PCP - General Family Medicine 01/07/18 documented as of this encounter
--- OUTSIDE RECORDS SUMMARY | 2023-11-05 05:48 | External Medical Summary | Summary of Care ---
Author Name Unknown Organization [facility] Address [address] [place] [address] Phone [phone] Care Team Providers Care Field Worker Name Role Phone Samanta Jung MD Primary Care Provider [phone] Reason for Visit * Reason Comments Phototherapy NBUVB 1808 mj Encounter Details Date Type Department Care Team (Late st Contact Info) Description 07/17/2023 8:00 AM EST Nurse Only Dermatology [facility] [address] [place] [address] Sp, Nurse Dermatology 200 [place] [address] Phototherapy (NBUVB 1808 mj) Allergies Active Allergy Reactions Criticality Noted Date Comments Penicillins 02/24/2007 documented as of this encounter (statuses as of 07/17/2023) Medications Medication Sig Dispensed Refills Start Date [...] as of this encounter (statuses as of 07/17/2023) Active Problems Problem Noted Date Diagnosed Date [...] as of this encounter (statuses as of 07/17/2023) Resolved Problems Problem Noted Date Diagnosed Date [...] as of this encounter (statuses as of 07/17/2023) Immunizations Name Administration Dates Next Due COVID-19 [...] Nursing Notes * Lulu Wellington LPN - 07/17/2023 8:42 AM EST No skin reaction from previous [...] 07/20/2023 8:00 AM EST Nurse Only Dermatology [facility] [place] [address] [place] [address] Sp, Nurse Dermatology [address] [place] [address] 07/22/2023 8:00 AM EST Nurse Only Dermatology [facility] [place] [address] [place] [address] Sp, Nurse Dermatology [address] [place] [address] 07/24/2023 8:00 AM EST Nurse Only Dermatology [facility] [place] [address] [place] [address] Sp, Nurse Dermatology [address] [place] [address] 07/27/2023 8:30 AM EST Nurse Only Dermatology [facility] [place] [address] [place] [address] Sp, Nurse Dermatology [address] [place] [address] 07/29/2023 8:00 AM EST Nurse Only Dermatology Scenery [facility] [address] [place] [address] Sp, Nurse Dermatology [address] [place] [address] 07/31/2023 8:00 AM EST Nurse Only Dermatology Scenery [facility] [address] [place] [address] Sp, Nurse Dermatology [address] [place] [address] 08/03/2023 8:00 AM EST Nurse Only [facility] [address] [place] [address] Sp, Nurse Dermatology [address] [place] [address] 08/05/2023 8:00 AM EST Nurse Only Dermatology [facility] [address] [place] [address] Sp, Nurse Dermatology [address] [place] [address] 08/07/2023 8:00 AM EST Cardiac Studies Cardiology, Health system 132 [facility], [place] [address] [place], Pacer [facility] 132 [facility], [place] [address] 08/10/2023 9:00 AM EST Nurse Only Dermatology [facility] [address] [place] [address] Sp, Nurse Dermatology [address] [place] [address] 08/12/2023 8:30 AM EST Nurse Only Dermatology [facility] [address] [place] [address] Sp, Nurse Dermatology [address] [place] [address] 08/14/2023 8:00 AM EST Nurse Only Dermatology Scenery [facility] [address] [place] [address] Sp, Nurse Dermatology [address] [place] [address] 08/17/2023 8:00 AM EST Nurse Only Dermatology Scenery [facility] [address] [place] [address] Sp, Nurse Dermatology [address] [place] [address] 08/19/2023 8:00 AM EST Nurse Only Dermatology Scenery [facility] [address] [place] [address] Sp, Nurse Dermatology [address] [place] [address] 08/21/2023 8:00 AM EST Nurse Only Dermatology Scenery [facility] [address] [place] [address] Sp, Nurse Dermatology [address] [place] [address] 08/24/2023 8:00 AM EST Nurse Only Dermatology Scenery [facility] [address] [place] [address] Sp, Nurse Dermatology [address] [place] [address] 08/26/2023 8:00 AM EST Nurse Only Dermatology Scenery [facility] [address] [place] [address] Sp, Nurse Dermatology [address] [place] [address] 08/28/2023 8:00 AM EST Nurse Only Dermatology Scenery [facility] [address] [place] [address] Sp, Nurse Dermatology [address] [place] [address] 08/31/2023 8:00 AM EST Nurse Only Dermatology Scenery [facility] [address] [place] [address] Sp, Nurse Dermatology [address] [place] [address] 09/02/2023 8:00 AM EST Nurse Only Dermatology Scenery [facility] [address] [place] [address] Sp, Nurse Dermatology [address] [place] [address] 09/04/2023 8:00 AM EST Nurse Only Dermatology Scenery [facility] [address] [place] [address] Sp, Nurse Dermatology [address] [place] [address] 09/07/2023 8:30 AM EST Nurse Only Dermatology Scenery [facility] [place] [address] [place] [address] Sp, Nurse Dermatology [address] [place] [address] 09/09/2023 8:00 AM EST Nurse Only Dermatology Scenery [facility] [address] [place] [address] Sp, Nurse Dermatology [address] [place] [address] 09/11/2023 8:00 AM EST Nurse Only Dermatology Scenery [facility] [address] [place] [address] Sp, Nurse Dermatology [address] [place] [address] 09/14/2023 10:30 AM EDT Office Visit Cardiology, Health [facility] [place] [id number] Patricio Johnson MD [address] [place] [address] 11/03/2023 9:45 AM EDT Office Visit Dermatology [facility] [address] [place] [address] Carl Munson MD [address] [place] [address] 11/24/2023 8:00 AM EDT Office Visit Rheumatology [facility] [address] [place], [place] [address] Terell Ward MD [address] [place] [address] Health Maintenance Due Date Last Done Comments [...] Documents on File Type Date Recorded Patient Screener Perfumer Expl anation Advance Directives and Living Will [...] the patient have Health Care Power of Case Filler? No Code Status History Code Status Date Activated Date Inactivated Comments Full Code 09/26/2016 11:53 AM 09/27/2016 5:27 PM This order reflects the patients wishes and were consensually agreed upon. Question Answer Comments Discussion of Advance Directives occurred with: Patient Does the patient have a Living Will? No Does the patient have Health Care Power of Case Filler? No Full Code 01/20/2008 10:58 AM 01/21/2008 1:40 PM Care Teams Field Worker Relationship Specialty [place] [address] [place] [address] [place] [address] PCP - General Family Medicine 01/07/18 documented as of this encounter
--- OUTSIDE RECORDS SUMMARY | 2023-11-05 05:49 | External Medical Summary | Summary of Care ---
Author Name Unknown Organization [facility] Address [address] [place] [address] Phone [phone] Care Team Providers Care Clinical Sales Consultant Name Role Phone Samanta Jung MD Primary Care Provider [phone] Reason for Visit * Reason Comments Light treatment NBUVB 1803 mj Encounter Details Date Type Department Care Team (Late st Contact Info) Description 07/13/2023 8:15 AM EST Nurse Only Dermatology [facility] [address] [place] [address] Sp, Nurse Dermatology 200 [place] [address] Light treatment (NBUVB 1809 mj) Allergies Active Allergy Reactions Criticality Noted Date Comments Penicillins 02/24/2007 documented as of this encounter (statuses as of 07/13/2023) Medications Medication Sig Dispensed Refills Start Date [...] as of this encounter (statuses as of 07/13/2023) Active Problems Problem Noted Date Diagnosed Date [...] as of this encounter (statuses as of 07/13/2023) Resolved Problems Problem Noted Date Diagnosed Date [...] as of this encounter (statuses as of 07/13/2023) Immunizations Name Administration Dates Next Due COVID-19 [...] as of this encounter Nursing Notes * Zonia Lam MED ASSIST - 07/13/2023 9:31 AM EST No skin reaction from previous treatment. Areas of body covered or protected during treatment: faceand eyes. Narrow Band UVB 1803 millijoules. Patient receives treatment three times weekly. Narrow Band UVB dose to be maintained at 1800 millijoules each treatment. documented in this encounter Plan of Treatment Upcoming Encounters Date Type Department Care Team (Late st Contact Info) Description 07/15/2023 8:00 AM EST Nurse Only Dermatology [facility] [place] [address] [place] [address] Sp, Nurse Dermatology [address] [place], [place] [address] 07/17/2023 8:00 AM EST Nurse Only Dermatology [facility] [place] [address] [place], [place] [address] Sp, Nurse Dermatology [address] [place], [place] [address] 07/20/2023 8:00 AM EST Nurse Only Dermatology [facility] [place] [address] [place], [place] [address] Sp, Nurse Dermatology [address] [place], [place] [address] 07/22/2023 8:00 AM EST Nurse Only Dermatology [facility] [place] [address] [place] [address] Sp, Nurse Dermatology [address] [place] [address] 07/24/2023 8:00 AM EST Nurse Only Dermatology [facility] [address] [place] [address] Sp, Nurse Dermatology [address] [place] [address] 07/27/2023 8:30 AM EST Nurse Only Dermatology [facility] [address] [place] [address] Sp, Nurse Dermatology [address] [place] [address] 07/29/2023 8:00 AM EST Nurse Only Dermatology [facility] [address] [place] [address] Sp, Nurse Dermatology [address] [place] [address] 07/31/2023 8:00 AM EST Nurse Only Dermatology [facility] [address] [place] [address] Sp, Nurse Dermatology [address] [place] [address] 08/03/2023 8:00 AM EST Nurse Only Dermatology [facility] [address] [place] [address] Sp, Nurse Dermatology [address] [place] [address] 08/05/2023 8:00 AM EST Nurse Only Dermatology [facility] [address] [place] [address] Sp, Nurse Dermatology [address] [place] [address] 08/07/2023 8:00 AM EST Cardiac Studies Cardiology, [facility] [address] [facility] [place] [address] [place], Pacer [address] [place] [address] 08/10/2023 9:00 AM EST Nurse Only Dermatology [facility] [address] [place] [address] Sp, Nurse Dermatology [address] [place] [address] 08/12/2023 8:30 AM EST Nurse Only Dermatology [facility] [address] [place] [address] Sp, Nurse Dermatology [address] [place] [address] 08/14/2023 8:00 AM EST Nurse Only Dermatology [facility] [address] [place] [address] Sp, Nurse Dermatology [address] [place] [address] 08/17/2023 8:00 AM EST Nurse Only Dermatology [facility] [address] [place] [address] Sp, Nurse Dermatology [address] [place] [address] 08/19/2023 8:00 AM EST Nurse Only Dermatology [facility] [address] [place] [address] Sp, Nurse Dermatology [address] [place] [address] 08/21/2023 8:00 AM EST Nurse Only Dermatology [facility] [address] [place] [address] Sp, Nurse Dermatology [address] [place] [address] 08/24/2023 8:00 AM EST Nurse Only Dermatology [facility] [address] [place] [address] Sp, Nurse Dermatology [address] [place] [address] 08/26/2023 8:00 AM EST Nurse Only Dermatology [facility] [address] [place] [address] Sp, Nurse Dermatology [address] [place] [address] 08/28/2023 8:00 AM EST Nurse Only Dermatology [facility] [address] [place] [address] Sp, Nurse Dermatology [address] [place] [address] 08/31/2023 8:00 AM EST Nurse Only Dermatology [facility] [address] [place] [address] Sp, Nurse Dermatology [address] [place] [address] 09/02/2023 8:00 AM EST Nurse Only Dermatology [facility] [address] [place] [address] Sp, Nurse Dermatology [address] [place] [address] 09/04/2023 8:00 AM EST Nurse Only Dermatology [facility] [address] [place] [address] Sp, Nurse Dermatology [address] [place] [address] 09/07/2023 8:30 AM EST Nurse Only Dermatology [facility] [address] [place] [address] Sp, Nurse Dermatology [address] [place] [address] 09/09/2023 8:00 AM EST Nurse Only Dermatology [facility] [address] [place] [address] Sp, Nurse Dermatology [address] [place], [place] [address] 09/11/2023 8:00 AM EST Nurse Only Dermatology [facility] [address] [place] [address] Sp, Nurse Dermatology 200 [facility] [place] [address] 09/14/2023 10:30 AM EDT Office Visit Cardiology, [facility] 132 [facility] [place] [address] Patricio Johnson MD 132 [facility] [place] [address] 11/03/2023 9:45 AM EDT Office Visit Dermatology [facility] [address] [place] [address] Carl Munson MD 200 [facility] [place] [address] 11/24/2023 8:00 AM EDT Office Visit Rheumatology [facility] [address] [place], [place] [address] Terell Ward MD [address] [place], [place] [address] Health Maintenance Due Date Last Done Comments [...] Documents on File Type Date Recorded Patient Radio Time Sales Supervisor Expl anation Advance Directives and Living Will [...] the patient have Health Care Power of Director Information? No Code Status History Code Status Date Activated Date Inactivated Comments Full Code 09/26/2016 11:53 AM 09/27/2016 5:27 PM This order reflects the patients wishes and were consensually agreed upon. Question Answer Comments Discussion of Advance Directives occurred with: Patient Does the patient have a Living Will? No Does the patient have Health Care Power of Director Information? No Full Code 01/20/2008 10:58 AM 01/21/2008 1:40 PM Care Teams Clinical Sales Consultant Relationship Specialty Start Date End Date Samanta Jung MD [address] [place], [place] [address] [id number] PCP - General Family Medicine 01/07/18 documented as of this encounter
--- OUTSIDE RECORDS SUMMARY | 2023-11-05 05:49 | External Medical Summary | Summary of Care ---
Author Name Unknown Organization [facility] Address [address] [place] [address] Phone [phone] Care Team Providers Care Chemical Analytical Sampler Name Role Phone Samanta Jung MD Primary Care Provider [phone] Reason for Visit * Reason Onset Date Comments Order Request 07/17/2023 Encounter Details Date Type Department Care Team (Late st Contact Info) Description 07/17/2023 Telephone Dermatology [facility] [place] 200 [facility] [place] [address] Carl Munson MD 200 [place] [address] Order Request Allergies Active Allergy Reactions Criticality Noted Date [...] 07/20/2023 8:00 AM EST Nurse Only Dermatology [facility] [address] [place], [place] [address] Sp, Nurse Dermatology [address] [place], [place] [address] 07/22/2023 8:00 AM EST Nurse Only Dermatology [facility] [address] [place], [place] [address] Sp, Nurse Dermatology [address] [place] [address] 07/24/2023 8:00 AM EST Nurse Only Dermatology [facility] [address] [place], [place] [address] Sp, Nurse Dermatology [address] [place] [address] 07/27/2023 8:30 AM EST Nurse Only Dermatology [facility] [address] [place] [address] Sp, Nurse Dermatology [address] [place] [address] 07/29/2023 8:00 AM EST Nurse Only Dermatology [facility] [address] [place] [address] Sp, Nurse Dermatology [address] [place] [address] 07/31/2023 8:00 AM EST Nurse Only Dermatology [facility] [address] [place] [address] Sp, Nurse Dermatology [address] [place] [address] 08/03/2023 8:00 AM EST Nurse Only Dermatology [facility] [address] [place] [address] Sp, Nurse Dermatology [address] [place] [address] 08/05/2023 8:00 AM EST Nurse Only Dermatology [facility] [address] [place] [address] Sp, Nurse Dermatology [address] [place] [address] 08/07/2023 8:00 AM EST Cardiac Studies Cardiology, [facility] 132 [place] [address] [place], Pac[facility] 132 [place] [address] 08/10/2023 9:00 AM EST Nurse Only Dermatology [facility] [address] [place] [address] Sp, Nurse Dermatology [address] [place] [address] 08/12/2023 8:30 AM EST Nurse Only Dermatology [facility] [address] [place] [address] Sp, Nurse Dermatology [address] [place] [address] 08/14/2023 8:00 AM EST Nurse Only Dermatology [facility] [address] [place] [address] Sp, Nurse Dermatology [address] [place] [address] 08/17/2023 8:00 AM EST Nurse Only Dermatology [facility] [address] [place] [address] Sp, Nurse Dermatology [address] [place] [address] 08/19/2023 8:00 AM EST Nurse Only Dermatology [facility] [address] [place] [address] Sp, Nurse Dermatology [address] [place] [address] 08/21/2023 8:00 AM EST Nurse Only Dermatology [facility] [address] [place] [address] Sp, Nurse Dermatology [address] [place] [address] 08/24/2023 8:00 AM EST Nurse Only Dermatology [facility] [address] [place] [address] Sp, Nurse Dermatology [address] [place] [address] 08/26/2023 8:00 AM EST Nurse Only Dermatology [facility] [address] [place] [address] Sp, Nurse Dermatology [address] [place] [address] 08/28/2023 8:00 AM EST Nurse Only Dermatology [facility] [address] [place] [address] Sp, Nurse Dermatology [address] [place] [address] 08/31/2023 8:00 AM EST Nurse Only Dermatology [facility] [address] [place] [address] Sp, Nurse Dermatology [address] [place] [address] 09/02/2023 8:00 AM EST Nurse Only Dermatology [facility] [address] [place] [address] Sp, Nurse Dermatology [address] [place] [address] 09/04/2023 8:00 AM EST Nurse Only Dermatology [facility] [address] [place] [address] Sp, Nurse Dermatology [address] [place] [address] 09/07/2023 8:30 AM EST Nurse Only Dermatology [facility] [address] [place] [address] Sp, Nurse Dermatology [address] [place] [address] 09/09/2023 8:00 AM EST Nurse Only Dermatology [facility] [address] [place] [address] Sp, Nurse Dermatology [address] [place] [address] 09/11/2023 8:00 AM EST Nurse Only Dermatology [facility] [place] [address] [place] [address] Sp, Nurse Dermatology [address] [place] [address] 09/14/2023 10:30 AM EDT Office Visit Cardiology, [facility] [address] [place] [address] Patricio Johnson MD [address] [place] [address] 11/03/2023 9:45 AM EDT Office Visit Dermatology [facility] [address] [place] [address] Carl Munson MD [address] [place] [address] 11/24/2023 8:00 AM EDT Office Visit Rheumatology [facility] [address] [place], [place] [address] Terell Ward MD [address] [place], [place] [address] Scheduled Orders Name Type Priority Associated Diagnoses Orde r Schedule ACTINOTHERAPY (ULTRAVIOLET LIGHT) Procedures Routine Psoriasis Other, Please specify in Comments field for 36 Occurrences starting 07/17/2023 until 10/25/2023 Health Maintenance Due Date Last Done Comments [...] Documents on File Type Date Recorded Patient Lead Atg Developer Expl anation Advance Directives and Living Will [...] the patient have Health Care Power of Bar Tender? No Code Status History Code Status Date Activated Date Inactivated Comments Full Code 09/26/2016 11:53 AM 09/27/2016 5:27 PM This order reflects the patients wishes and were consensually agreed upon. Question Answer Comments Discussion of Advance Directives occurred with: Patient Does the patient have a Living Will? No Does the patient have Health Care Power of Bar Tender? No Full Code 01/20/2008 10:58 AM 01/21/2008 1:40 PM Care Teams Chemical Analytical Sampler Relationship Specialty Start [place] [address] [place], [place] [address] [id number] PCP - General Family Medicine 01/07/18 documented as of this encounter
--- OUTSIDE RECORDS SUMMARY | 2023-11-05 05:49 | External Medical Summary | Summary of Care ---
Author Name Unknown Organization [facility] Address [address] [place] [address] Phone [phone] Care Team Providers Care Stone Rougher Name Role Phone Samanta Jung MD Primary Care Provider [phone] Reason for Visit * Reason Comments Phototherapy NBUVB 1806 mj Encounter Details Date Type Department Care Team (Late st Contact Info) Description 07/10/2023 8:00 AM EST Nurse Only Dermatology [facility] [address] [place] [address] Sp, Nurse Dermatology 200 [place] [address] Phototherapy (NBUVB 1806 mj) Allergies Active Allergy Reactions Criticality Noted Date Comments Penicillins 02/24/2007 documented as of this encounter (statuses as of 07/10/2023) Medications Medication Sig Dispensed Refills Start Date [...] as of this encounter (statuses as of 07/10/2023) Active Problems Problem Noted Date Diagnosed Date [...] as of this encounter (statuses as of 07/10/2023) Resolved Problems Problem Noted Date Diagnosed Date [...] as of this encounter (statuses as of 07/10/2023) Immunizations Name Administration Dates Next Due COVID-19 [...] Nursing Notes * Lulu Wellington LPN - 07/10/2023 8:21 AM EST No skin reaction from previous treatment. Areas of body covered or protected during treatment: faceand eyes. Narrow Band UVB 1806 millijoules. Patient receives treatment three times weekly. Narrow Band UVB dose to be maintained at 1800 millijoules each treatment. documented in this encounter Plan of Treatment Upcoming Encounters Date Type Department Care Team (Late st Contact Info) Description 07/13/2023 8:15 AM EST Nurse Only Dermatology [facility] [place] [address] [place] [address] Sp, Nurse Dermatology [address] [place] [address] 07/15/2023 8:00 AM EST Nurse Only Dermatology [facility] [place] [address] [place] [address] Sp, Nurse Dermatology [address] [place] [address] 07/17/2023 8:00 AM EST Nurse Only Dermatology [facility] [place] [address] [place] [address] Sp, Nurse Dermatology [address] [place] [address] 07/20/2023 8:00 AM EST Nurse Only Dermatology [facility] [place] [address] [place] [address] Sp, Nurse Dermatology [address] [place] [address] 07/22/2023 8:00 AM EST Nurse Only Dermatology [facility] [address] [place] [address] Sp, Nurse Dermatology [address] [place] [address] 07/24/2023 8:00 AM EST Nurse Only Dermatology [facility] [address] [place] [address] Sp, Nurse Dermatology [address] [place] [address] 07/27/2023 8:30 AM EST Nurse Only Dermatology [facility] [address] [place] [address] Sp, Nurse Dermatology [address] [place] [address] 07/29/2023 8:00 AM EST Nurse Only Dermatology [facility] [address] [place] [address] Sp, Nurse Dermatology [address] [place] [address] 07/31/2023 8:00 AM EST Nurse Only Dermatology [facility] [address] [place] [address] Sp, Nurse Dermatology [address] [place] [address] 08/03/2023 8:00 AM EST Nurse Only Dermatology [facility] [address] [place] [address] Sp, Nurse Dermatology [address] [place] [address] 08/05/2023 8:00 AM EST Nurse Only Dermatology [facility] [address] [place] [address] Sp, Nurse Dermatology [address] [place] [address] 08/07/2023 8:00 AM EST Cardiac Studies Cardiology, [facility] 132 [place] [address] [place], Pacer Clinic [facility] 132 [facility] [place] [address] 08/10/2023 9:00 AM EST Nurse Only Dermatology [facility] [address] [place] [address] Sp, Nurse Dermatology [address] [place] [address] 08/12/2023 8:30 AM EST Nurse Only Dermatology [facility] [address] [place] [address] Sp, Nurse Dermatology [address] [place] [address] 08/14/2023 8:00 AM EST Nurse Only Dermatology [facility] [place] [address] [place] [address] Sp, Nurse Dermatology [address] [place] [address] 08/17/2023 8:00 AM EST Nurse Only Dermatology [facility] [address] [place] [address] Sp, Nurse Dermatology [address] [place] [address] 08/19/2023 8:00 AM EST Nurse Only Dermatology [facility] [place] [address] [place] [address] Sp, Nurse Dermatology [address] [place] [address] 08/21/2023 8:00 AM EST Nurse Only Dermatology [facility] [address] [place] [address] Sp, Nurse Dermatology [address] [place] [address] 08/24/2023 8:00 AM EST Nurse Only Dermatology [facility] [address] [place] [address] Sp, Nurse Dermatology [address] [place] [address] 08/26/2023 8:00 AM EST Nurse Only Dermatology [facility] [address] [place] [address] Sp, Nurse Dermatology [address] [place] [address] 08/28/2023 8:00 AM EST Nurse Only Dermatology [facility] [address] [place] [address] Sp, Nurse Dermatology [address] [place] [address] 08/31/2023 8:00 AM EST Nurse Only Dermatology [facility] [address] [place] [address] Sp, Nurse Dermatology [address] [place] [address] 09/02/2023 8:00 AM EST Nurse Only Dermatology [facility] [address] [place] [address] Sp, Nurse Dermatology [address] [place] [address] 09/04/2023 8:00 AM EST Nurse Only Dermatology [facility] [address] [place] [address] Sp, Nurse Dermatology [address] [place] [address] 09/07/2023 8:30 AM EST Nurse Only Dermatology [facility] [address] [place] [address] Sp, Nurse Dermatology [address] [place], [place] [address] 09/09/2023 8:00 AM EST Nurse Only Dermatology [facility] [address] [place], [place] [address] Sp, Nurse Dermatology 200 [facility] [place], [place] [address] 09/11/2023 8:00 AM EST Nurse Only Dermatology [facility] [place] [address] [place], [place] [address] Sp, Nurse Dermatology 200 [facility] [place], [place] [address] 09/14/2023 10:30 AM EDT Office Visit Cardiology, [facility] 132 [place] [address] Patricio Johnson MD 132 [place] [address] 11/03/2023 9:45 AM EDT Office Visit Dermatology [facility] [address] [place], [place] [address] Carl Munson MD 200 [facility] [place], [place] [address] 11/24/2023 8:00 AM EDT Office Visit Rheumatology [address] [place], [place] [address] Terell Ward MD [facility] [place] [address] Health Maintenance Due Date Last Done Comments [...] Documents on File Type Date Recorded Patient Fan Runner Expl anation Advance Directives and Living Will [...] the patient have Health Care Power of Ratchet Setter? No Code Status History Code Status Date Activated Date Inactivated Comments Full Code 09/26/2016 11:53 AM 09/27/2016 5:27 PM This order reflects the patients wishes and were consensually agreed upon. Question Answer Comments Discussion of Advance Directives occurred with: Patient Does the patient have a Living Will? No Does the patient have Health Care Power of Ratchet Setter? No Full Code 01/20/2008 10:58 AM 01/21/2008 1:40 PM Care Teams Stone Rougher Relationship Specialty [place] [address] [place] [address] [place] [address] PCP - General Family Medicine 01/07/18 documented as of this encounter
--- OUTSIDE RECORDS SUMMARY | 2023-11-05 05:49 | External Medical Summary | Summary of Care ---
Author Name Unknown Organization [facility] Address [address] [place] [address] Phone [phone] Care Team Providers Care Pulp Plant Supervisor Name Role Phone Samanta Jung MD Primary Care Provider [phone] Reason for Visit * Reason Comments Light treatment NBUVB 1807 mj Encounter Details Date Type Department Care Team (Late st Contact Info) Description 07/15/2023 8:00 AM EST Nurse Only Dermatology [facility] [address] [place] [address] Sp, Nurse Dermatology [address] [place] [address] Light treatment (NBUVB 1808 mj) Allergies Active Allergy Reactions Criticality Noted Date Comments Penicillins 02/24/2007 documented as of this encounter (statuses as of 07/15/2023) Medications Medication Sig Dispensed Refills Start Date [...] as of this encounter (statuses as of 07/15/2023) Active Problems Problem Noted Date Diagnosed Date [...] as of this encounter (statuses as of 07/15/2023) Resolved Problems Problem Noted Date Diagnosed Date [...] as of this encounter (statuses as of 07/15/2023) Immunizations Name Administration Dates Next Due COVID-19 [...] Notes * Zonia Lam MED ASSIST - 07/15/2023 8:18 AM EST No skin reaction from previous treatment. Areas of body covered or protected during treatment: faceand eyes. Narrow Band UVB 1807 millijoules. Patient receives treatment three times weekly. Narrow Band UVB dose to be maintained at 1800 millijoules each treatment. documented in this encounter Plan of Treatment Upcoming Encounters Date Type Department Care Team (Late st Contact Info) Description 07/17/2023 8:00 AM EST Nurse Only Dermatology [facility] [place] [address] [place] [address] Sp, Nurse Dermatology [address] [place], [place] [address] 07/20/2023 8:00 AM EST Nurse Only Dermatology [facility] [place] [address] [place], [place] [address] Sp, Nurse Dermatology [address] [place], [place] [address] 07/22/2023 8:00 AM EST Nurse Only Dermatology [facility] [place] [address] [place], [place] [address] Sp, Nurse Dermatology [address] [place], [place] [address] 07/24/2023 8:00 AM EST Nurse Only Dermatology [facility] [place] [address] [place] [address] Sp, Nurse Dermatology [address] [place] [address] 07/27/2023 8:30 AM EST Nurse Only Dermatology [facility] [address] [place] [address] Sp, Nurse Dermatology [address] [place] [address] 07/29/2023 8:00 AM EST Nurse Only Dermatology [facility] [address] [place] [address] Sp, Nurse Dermatology [address] [place] [address] 07/31/2023 8:00 AM EST Nurse Only Dermatology [facility] [address] [place] [address] Sp, Nurse Dermatology [address] [place] [address] 08/03/2023 8:00 AM EST Nurse Only Dermatology [facility] [address] [place] [address] Sp, Nurse Dermatology [address] [place] [address] 08/05/2023 8:00 AM EST Nurse Only Dermatology [facility] [address] [place] [address] Sp, Nurse Dermatology [address] [place] [address] 08/07/2023 8:00 AM EST Cardiac Studies Cardiology, [facility] [address] [place] [address] [place] [address] [facility] [place] [address] 08/10/2023 9:00 AM EST Nurse Only [facility] [address] [place] [address] Sp, Nurse Dermatology [address] [place] [address] 08/12/2023 8:30 AM EST Nurse Only Dermatology [facility] [address] [place] [address] Sp, Nurse Dermatology [address] [place] [address] 08/14/2023 8:00 AM EST Nurse Only Dermatology [facility] [address] [place] [address] Sp, Nurse Dermatology [address] [place] [address] 08/17/2023 8:00 AM EST Nurse Only Dermatology [facility] [address] [place] [address] Sp, Nurse Dermatology [address] [place] [address] 08/19/2023 8:00 AM EST Nurse Only Dermatology [facility] [address] [place] [address] Sp, Nurse Dermatology [address] [place] [address] 08/21/2023 8:00 AM EST Nurse Only Dermatology [facility] [address] [place] [address] Sp, Nurse Dermatology [address] [place] [address] 08/24/2023 8:00 AM EST Nurse Only Dermatology [facility] [address] [place] [address] Sp, Nurse Dermatology [address] [place] [address] 08/26/2023 8:00 AM EST Nurse Only Dermatology [facility] [address] [place] [address] Sp, Nurse Dermatology [address] [place] [address] 08/28/2023 8:00 AM EST Nurse Only Dermatology [facility] [address] [place] [address] Sp, Nurse Dermatology [address] [place] [address] 08/31/2023 8:00 AM EST Nurse Only Dermatology [facility] [address] [place] [address] Sp, Nurse Dermatology [address] [place] [address] 09/02/2023 8:00 AM EST Nurse Only Dermatology [facility] [address] [place] [address] Sp, Nurse Dermatology [address] [place] [address] 09/04/2023 8:00 AM EST Nurse Only Dermatology [facility] [address] [place] [address] Sp, Nurse Dermatology [address] [place] [address] 09/07/2023 8:30 AM EST Nurse Only Dermatology [facility] [address] [place] [address] Sp, Nurse Dermatology [address] [place] [address] 09/09/2023 8:00 AM EST Nurse Only Dermatology [facility] [address] [place] [address] Sp, Nurse Dermatology [address] [place] [address] 09/11/2023 8:00 AM EST Nurse Only Dermatology [facility] [address] [place] [address] Sp, Nurse Dermatology [address] [place] [address] 09/14/2023 10:30 AM EDT Office Visit Cardiology, [facility] [address] [place] [address] Patricio Johnson MD [address] [place] [address] 11/03/2023 9:45 AM EDT Office Visit Dermatology [facility] 200 [facility] [place] [address] Carl Munson MD 200 [facility] [place] [address] 11/24/2023 8:00 AM EDT Office Visit Rheumatology [facility] [address] [place], [place] [address] Terell Ward MD [address] [place], [place] [address] Health Maintenance Due Date Last Done Comments [...] Documents on File Type Date Recorded Patient Lock Assembler Expl anation Advance Directives and Living Will [...] the patient have Health Care Power of Jacquard Twine Polisher Operator? No Code Status History Code Status Date Activated Date Inactivated Comments Full Code 09/26/2016 11:53 AM 09/27/2016 5:27 PM This order reflects the patients wishes and were consensually agreed upon. Question Answer Comments Discussion of Advance Directives occurred with: Patient Does the patient have a Living Will? No Does the patient have Health Care Power of Jacquard Twine Polisher Operator? No Full Code 01/20/2008 10:58 AM 01/21/2008 1:40 PM Care Teams Pulp Plant Supervisor Relationship Specialty Start Date End Date Samanta Jung MD [address] [place] [address] PCP - General Family Medicine 01/07/18 documented as of this encounter
--- OUTSIDE RECORDS SUMMARY | 2023-11-05 05:49 | External Medical Summary | Summary of Care ---
Author Name Unknown Organization [facility] Address [address] [place] [address] Phone [phone] Care Team Providers Care Marker Delivery Name Role Phone Samanta Jung MD Primary Care Provider [phone] Reason for Visit * Reason Comments Phototherapy NBUVB 1805 mj Encounter Details Date Type Department Care Team (Late st Contact Info) Description 07/08/2023 8:00 AM EST Nurse Only Dermatology [facility] [address] [place] [address] Sp, Nurse Dermatology 200 [place] [address] Phototherapy (NBUVB 1805 mj) Allergies Active Allergy Reactions Criticality Noted Date Comments Penicillins 02/24/2007 documented as of this encounter (statuses as of 07/08/2023) Medications Medication Sig Dispensed Refills Start Date [...] as of this encounter (statuses as of 07/08/2023) Active Problems Problem Noted Date Diagnosed Date Psoriasis 05/21/2021 Aortic root dilatation 03/16/2020 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 Areas of body covered or protected during treatment: faceand eyes. Narrow Band UVB 1805 millijoules. Patient receives treatment three times weekly. Narrow Band UVB dose to be maintained at 1800 millijoules each treatment. documented in this encounter Plan of Treatment Upcoming Encounters Date Type Department Care Team (Late st Contact Info) Description 07/10/2023 8:00 AM EST Nurse Only Dermatology [facility] [place] [address] [place] [address] Sp, Nurse Dermatology [address] [place] [address] 07/13/2023 8:15 AM EST Nurse Only Dermatology [facility] [place] [address] [place] [address] Sp, Nurse Dermatology [address] [place] [address] 07/15/2023 8:00 AM EST Nurse Only Dermatology [facility] [place] [address] [place] [address] Sp, Nurse Dermatology [address] [place] [address] 07/17/2023 8:00 AM EST Nurse Only Dermatology [facility] [place] [address] [place] [address] Sp, Nurse Dermatology [address] [place] [address] 07/20/2023 8:00 AM EST Nurse Only Dermatology [facility] [address] [place] [address] Sp, Nurse Dermatology [address] [place] [address] 07/22/2023 8:00 AM EST Nurse Only Dermatology [facility] [address] [place] [address] Sp, Nurse Dermatology [address] [place] [address] 07/24/2023 8:00 AM EST Nurse Only Dermatology [facility] [address] [place] [address] Sp, Nurse Dermatology [address] [place] [address] 07/27/2023 8:30 AM EST Nurse Only Dermatology [facility] [address] [place] [address] Sp, Nurse Dermatology [address] [place] [address] 07/29/2023 8:00 AM EST Nurse Only Dermatology [facility] [address] [place] [address] Sp, Nurse Dermatology [address] [place] [address] 07/31/2023 8:00 AM EST Nurse Only Dermatology [facility] [address] [place] [address] Sp, Nurse Dermatology [address] [place] [address] 08/03/2023 8:00 AM EST Nurse Only Dermatology [facility] [address] [place] [address] Sp, Nurse Dermatology [address] [place] [address] 08/05/2023 8:00 AM EST Nurse Only Dermatology [facility] [address] [place], [place] [address] Sp, Nurse Dermatology [address] [place] [address] 08/07/2023 8:00 AM EST Cardiac Studies Cardiology, [facility] [address] [employer] [place] [address] [place], [facility] 132 [facility] [place] [address] 08/10/2023 9:00 AM EST Nurse Only Dermatology [facility] [address] [place], [place] [address] Sp, Nurse Dermatology [address] [place], [place] [address] 08/12/2023 8:30 AM EST Nurse Only Dermatology [facility] [place] [address] [place], [place] [address] Sp, Nurse Dermatology [address] [place] [address] 08/14/2023 8:00 AM EST Nurse Only Dermatology [facility] [place] [address] [place] [address] Sp, Nurse Dermatology [address] [place] [address] 08/17/2023 8:00 AM EST Nurse Only Dermatology [facility] [place] [address] [place] [address] Sp, Nurse Dermatology [address] [place] [address] 08/19/2023 8:00 AM EST Nurse Only Dermatology [facility] [place] [address] [place] [address] Sp, Nurse Dermatology [address] [place] [address] 08/21/2023 8:00 AM EST Nurse Only Dermatology [facility] [address] [place] [address] Sp, Nurse Dermatology [address] [place] [address] 08/24/2023 8:00 AM EST Nurse Only Dermatology [facility] [address] [place] [address] Sp, Nurse Dermatology [address] [place] [address] 08/26/2023 8:00 AM EST Nurse Only Dermatology [facility] [address] [place] [address] Sp, Nurse Dermatology [address] [place] [address] 08/28/2023 8:00 AM EST Nurse Only Dermatology [facility] [address] [place] [address] Sp, Nurse Dermatology [address] [place] [address] 08/31/2023 8:00 AM EST Nurse Only Dermatology [facility] [address] [place] [address] Sp, Nurse Dermatology [address] [place] [address] 09/02/2023 8:00 AM EST Nurse Only Dermatology [facility] [address] [place] [address] Sp, Nurse Dermatology [address] [place] [address] 09/04/2023 8:00 AM EST Nurse Only Dermatology [facility] [address] [place] [address] Sp, Nurse Dermatology [address] [place] [address] 09/07/2023 8:30 AM EST Nurse Only Dermatology [facility] [address] [place] [address] Sp, Nurse Dermatology [address] [place] [address] 09/09/2023 8:00 AM EST Nurse Only Dermatology [facility] [place] [address] [place] [address] Sp, Nurse Dermatology [address] [place] [address] 09/11/2023 8:00 AM EST Nurse Only Dermatology [facility] [place] [address] [place], [place] [address] Sp, Nurse Dermatology [address] [place], [place] [address] 09/14/2023 10:30 AM EDT Office Visit Cardiology, [facility] 132 [facility] [place] [address] Patricio Johnson MD 132 [facility] [place] [address] 11/03/2023 9:45 AM EDT Office Visit Dermatology [facility] [address] [place], [place] [address] Carl Munson MD [address] [place] [address] 11/24/2023 8:00 AM EDT Office Visit Rheumatology [place] [address] [place] [address] Terell Ward MD [address] [place], [place] [address] Health Maintenance Due Date Last Done Comments [...] Documents on File Type Date Recorded Patient Filter Tender Jelly Expl anation Advance Directives and Living Will [...] the patient have Health Care Power of Flame Burner? No Code Status History Code Status Date Activated Date Inactivated Comments Full Code 09/26/2016 11:53 AM 09/27/2016 5:27 PM This order reflects the patients wishes and were consensually agreed upon. Question Answer Comments Discussion of Advance Directives occurred with: Patient Does the patient have a Living Will? No Does the patient have Health Care Power of Flame Burner? No Full Code 01/20/2008 10:58 AM 01/21/2008 1:40 PM Care Teams Marker Delivery Relationship Specialty [place] [address] [place] [address] [place] [address] PCP - General Family Medicine 01/07/18 documented as of this encounter
--- OUTSIDE RECORDS SUMMARY | 2023-11-05 05:50 | External Medical Summary | Summary of Care ---
Author Name Unknown Organization [facility] Address [address] [place] [address] Phone [phone] Care Team Providers Care Hardware Installation Coordinator Name Role Phone Samanta Jung MD Primary Care Provider [phone] Reason for Visit * Reason Comments Light treatment NBUVB 1800 mj Encounter Details Date Type Department Care Team (Late st Contact Info) Description 06/26/2023 8:00 AM EST Nurse Only Dermatology [facility] [address] [place] [address] Sp, Nurse Dermatology 200 [place] [address] Light treatment (NBUVB 1800 mj) Allergies Active Allergy Reactions Criticality Noted Date Comments Penicillins 02/24/2007 documented as of this encounter (statuses as of 06/26/2023) Medications Medication Sig Dispensed Refills Start Date [...] as of this encounter (statuses as of 06/26/2023) Active Problems Problem Noted Date Diagnosed Date [...] as of this encounter (statuses as of 06/26/2023) Resolved Problems Problem Noted Date Diagnosed Date [...] as of this encounter (statuses as of 06/26/2023) Immunizations Name Administration Dates Next Due COVID-19 [...] Notes * Zonia Lam MED ASSIST - 06/26/2023 8:11 AM EST No skin reaction from previous treatment. Areas of body covered or protected during treatment: faceand eyes. Narrow Band UVB 1801 millijoules. Patient receives treatment three times weekly. Narrow Band UVB dose to be maintained at 1800 millijoules each treatment. documented in this encounter Plan of Treatment Upcoming Encounters Date Type Department Care Team (Late st Contact Info) Description 07/01/2023 8:00 AM EST Nurse Only Dermatology [facility] [place] [address] [place] [address] Sp, Nurse Dermatology [address] [place] [address] 07/03/2023 8:00 AM EST Nurse Only Dermatology [facility] [place] [address] [place] [address] Sp, Nurse Dermatology [address] [place] [address] 07/08/2023 8:00 AM EST Nurse Only Dermatology [facility] [place] [address] [place] [address] Sp, Nurse Dermatology [address] [place] [address] 07/10/2023 8:00 AM EST Nurse Only Dermatology [facility] [place] [address] [place] [address] Sp, Nurse Dermatology 200 [facility] [place] [address] 08/07/2023 8:00 AM EST Cardiac Studies [facility], [facility] [place] [address] [place] [facility] [address] [facility] [place] [address] 09/14/2023 10:30 AM EDT Office Visit Cardiology, [facility] [place] [address] Patricio Johnson MD 132 [place] [address] 11/03/2023 9:45 AM EDT Office Visit Dermatology [facility] [address] [facility] [address] [place] [address] Carl Munson MD [address] [place] [address] 11/24/2023 8:00 AM EDT Office Visit Rheumatology [facility] [email or web address] [place] [address] Terell Ward MD [address] [place] [address] Health Maintenance Due Date Last Done Comments [...] Additional history exists HbA1c 07/17/2021 01/14/2021, 03/10/2017 COVID-19 Vaccine ( - season) 2023 06/02/2023, 05/27/2022, 06/05/2021, Additional history exists Influenza Vaccine (FLU shot) (#1) 2023 05/22/2021, 03/16/2020, 03/16/2020, Additional history exists DTaP,Tdap,and Td Vaccines (2 - Td or Tdap) 03/15/2023 03/15/2013 GFR 12/11/2023 12/10/2022, 03/2022, 07/08/2021, Additional history exists Lipid Panel 09/11/2026 09/11/2021, 09/2021, 01/14/2021, Additional history exists Pneumococcal Vaccine: Pediatrics (0 to 5 Years) and At-Risk Patients (6 to 64 Years) (4 - PPSV23 or PCV20) 2039 03/10/2017, 04/29/2011, 04/09/2011 GARDASIL-HPV IMMUNIZATION SERIES Aged Out No longer [...] Documents on File Type Date Recorded 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 No Code Status History Code Status Date Activated Date Inactivated Comments Full Code 09/26/2016 11:53 AM 09/27/2016 5:27 PM This order reflects the patients wishes and were consensually agreed upon. Question Answer Comments Discussion of Advance Directives occurred with: Patient Does the patient have a Living Will? No Does the patient have Health Care Power of Sewing Machine Mechanic? No Full Code 01/20/2008 10:58 AM 01/21/2008 1:40 PM Care Teams Hardware Installation Coordinator Relationship Specialty Start Date End Date Samanta Jung MD [address] [place] [address] [place] [address] PCP - General Family Medicine 01/07/18 documented as of this encounter
--- OUTSIDE RECORDS SUMMARY | 2023-11-05 05:50 | External Medical Summary | Summary of Care ---
Author Name Unknown Organization [facility] Address [address] [place] [address] Phone [phone] Care Team Providers Care Rigger Apprentice Name Role Phone Samanta Jung MD Primary Care Provider [phone] Reason for Visit * Reason Comments Light treatment NBUVB 1802 mj Encounter Details Date Type Department Care Team (Late st Contact Info) Description 07/03/2023 8:00 AM EST Nurse Only Dermatology [facility] [address] [place] [address] Sp, Nurse Dermatology [address] [place] [address] Light treatment (NBUVB 1800 mj) Allergies Active Allergy Reactions Criticality Noted Date Comments Penicillins 02/24/2007 documented as of this encounter (statuses as of 07/03/2023) Medications Medication Sig Dispensed Refills Start Date [...] as of this encounter (statuses as of 07/03/2023) Active Problems Problem Noted Date Diagnosed Date [...] as of this encounter (statuses as of 07/03/2023) Resolved Problems Problem Noted Date Diagnosed Date [...] as of this encounter (statuses as of 07/03/2023) Immunizations Name Administration Dates Next Due COVID-19 [...] Notes * Zonia Lam MED ASSIST - 07/03/2023 8:20 AM EST No skin reaction from previous treatment. Areas of body covered or protected during treatment: faceand eyes. Narrow Band UVB 1802 millijoules. Patient receives treatment three times weekly. Narrow Band UVB dose to be maintained at 1800 millijoules each treatment. documented in this encounter Plan of Treatment Upcoming Encounters Date Type Department Care Team (Late st Contact Info) Description 07/08/2023 8:00 AM EST Nurse Only Dermatology [facility] [address] [facility] [place] [address] Sp, Nurse Dermatology [address] [place] [address] [place] [address] 07/10/2023 8:00 AM EST Nurse Only Dermatology [facility] [place] [address] [place] [address] Sp, Nurse Dermatology [address] [place] [address] [place] [address] 08/07/2023 8:00 AM EST Cardiac Studies [facility], [facility] [address] [facility] [address] [facility] [address] [facility] [place] [address] 09/14/2023 10:30 AM EDT Office Visit Cardiology, [facility] [address] [place] [address] Patricio Johnson MD [address] [place] [address] 11/03/2023 9:45 AM EDT Office Visit Dermatology [facility] [address] [facility] [place] [address] Carl Munson MD [address] 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 No Code Status History Code Status Date Activated Date Inactivated Comments Full Code 09/26/2016 11:53 AM 09/27/2016 5:27 PM This order reflects the patients wishes and were consensually agreed upon. Question Answer Comments Discussion of Advance Directives occurred with: Patient Does the patient have a Living Will? No Does the patient have Health Care Power of [place]? No Full Code 01/20/2008 10:58 AM 01/21/2008 1:40 PM Care Teams Rigger Apprentice Relationship Specialty Start Date End Date Samanta Jung MD [address] [facility] [place] [address] PCP - General Family Medicine 01/07/18 documented as of this encounter
[2023-11-05 06:35] LABS: Basophils # (auto) 0.06 K/uL (0.00-0.20); Basophils % (auto) 0.6 %; Eosinophils # (auto) 0.12 K/uL (0.00-0.50); Eosinophils % (auto) 1.2 %; Hematocrit (blood only) 40.8 % (42.0-52.0); Hemoglobin 13.5 g/dl (14.0-18.0); Immature Granulocytes # (auto) 0.04 K/uL (0.01-0.20); Immature Granulocytes % (auto) 0.4 %; Lymphocytes # (auto) 1.61 K/uL (1.20-3.40); Lymphocytes % (auto) 15.5 %; Mean Corpuscular Hemoglobin 28.4 pg (25.0-34.0); Mean Corpuscular Hgb Conc 33.1 g/dL (32.0-36.0); Mean Corpuscular Volume 85.9 fL (80.0-100.0); Mean Platelet Volume 9.7 fL (9.4-12.4); Monocytes # (auto) 0.91 K/uL (0.11-0.59); Monocytes % (auto) 8.8 %; Neutrophils # (auto) 7.66 K/uL (1.40-6.50); Neutrophils % (auto) 73.5 %; Platelet Count 237 K/uL (130-400); RDW Coefficient of Variation 13.2 % (11.5-14.5); RDW Standard Deviation 41.5 fL (36.4-46.3); Red Blood Count 4.75 M/uL (4.70-6.10)
[2023-11-05 06:53] LABS: Prothrombin Time 10.9 Seconds (9.0-12.0)
[2023-11-05 06:58] LABS: Albumin Globulin Ratio 1.7 (0.9-2); Albumin Level 4.1 gm/dl (3.4-5.0); BUN Creatinine Ratio 17.6 (10-20); Bilirubin,Total 1.2 mg/dl (0.2-1.0); Calcium 8.5 mg/dl (8.6-10.3); Creatinine Clr Calc Pharmacy 125.2 ml/min; Est GFR (African American) 114.3 ml/min; Est GFR (Non-African American) 98.6 ml/min; Globulin 2.4 gm/dl (2.5-4.0); Magnesium 2.5 mg/dl (1.7-2.4); Total Protein 6.5 gm/dl (6.0-8.3)
[2023-11-05] MEDS: DIGOXIN 0.125 MG TAB PO SCH (08:44)
[2023-11-05] MEDS: AMIODARONE 200 MG TAB PO SCH (08:45)
[2023-11-05] MEDS: allopurinoL 300 MG TAB PO SCH (08:45)
[2023-11-05] MEDS: EMPAGLIFLOZIN 25 MG TAB PO SCH (08:46)
[2023-11-05] MEDS: ROSUVASTATIN CALCIUM 10 MG TAB PO SCH (08:46)
[2023-11-05] MEDS: MAGNESIUM OXIDE 400 MG TAB PO SCH (08:46)
[2023-11-05] MEDS: SPIRONOLACTONE 25 MG TAB PO SCH (08:46)
[2023-11-05] MEDS: FUROSEMIDE 40 MG/4 ML VIAL IV SCH (08:54)
[2023-11-05] MEDS ORDERED: STAT IV Infusion **Titration per Protocol STA (11:01)
[2023-11-05] MEDS ORDERED: AMIODARONE IV BOLUS & DRIP IV STA (11:01)
[2023-11-05] MEDS ORDERED: 0.2 MICRON FILTER SET 1 EACH IV STA (11:01)
--- NOTE | 2023-11-05 11:15 | Cardiology Progress Note ---
Date of Service November 05, 2023 Assessment & Plan (1) Acute on chronic heart failure with reduced ejection fraction and diastolic dysfunction: (2) Atrial fibrillation with controlled ventricular rate: (3) Dilated cardiomyopathy: Plan Patient admitted with acute HFrEF with evidence of volume overload on exam, pulm congestion, abdominal bloating and SOB. History of severely dilated cardiomyopathy. Started on IV lasix 40 mg BID Monitor I+O's 3.3 L output since yesterday evening. Stable renal function and electrolytes. Continue supplemental potassium with ongoing IV diuresis. continue spironolactone 25 mg daily Echo with interval decline in LVEF now 15% Also found to have recurrent atrial fibrillation on admission. Poorly tolerated in the past with acute decompensated HF exacerbations. HR's elevated this morning. Start IV amiodarone for reload. Prior home dose was 200 mg daily Continue digoxin, metoprolol 25 mg BID. Beta som limited due to hypotension. Pending volume status, consider DCCV in AM on 11/05 if he remains in afib. Will make NPO. He has been compliant with Xarelto. Continue Xarelto during this admission for stroke prophylaxis. CHF medications have been limited in the past due to borderline hypotension. He was taking lisinopril 5 mg daily at home. On Hold. Last dose yesterday 11/03. Need to allow at least 36 hour washout of ADRIANO, then will likely start low dose Entresto. Case discussed with Dr. Mix I spent a total of 40 minutes on the date of service in preparation, delivery, and documentation of the care provided to this patient, excluding any time spent in the performance of separately billed services. Vera Ron PA-C Department of Cardiology, [facility] This chart was completed in part utilizing Speech Voice Recognition Software. Grammatical errors, random word insertions, pronoun errors, and incomplete sentences are an occasional consequence of this system due to software limitations, ambient noise, and hardware issues. Any formal questions or concerns about the content, text, or information contained within the body of this dictation should be directly addressed to the provider for clarification. Admission and Anticipated Discharge Date Admission Date: November 04, 2023 Supervising Physician Co-Signing Physician Notes I have reviewed the advance practitioner's documentation, and I agree with, and take responsibility for the plan of care. I have personally performed a history and physical examination on the patient. Elevated heart rates noted this a.m. Patient overall feeling better from a cardiovascular perspective with IV diuresis. Abdominal bloating improved. Denies orthopnea or PND. PE: VSS. Gen: NAD, AAO x3. Heart: Irregular rhythm, borderline tachycardia. Normal S1-S2. 2/6 holosystolic murmur. Lungs: Scant crackles at the bases bilaterally. Extremities: No edema. A/P: 48-year-old male with acute on chronic heart failure, severely reduced left ventricular systolic function, nonischemic cardiomyopathy, paroxysmal atrial fibrillation with rapid ventricular response. Recommend IV amiodarone 150 mg x 1 now followed by continuous infusion. If patient remains in atrial fibrillation overnight will proceed with external direct-current cardioversion in the a.m. 11/06/2023. Continue chronic anticoagulation with Xarelto. N.p.o. except medications after midnight. Lisinopril on hold since admission with plans to initiate treatment with low-dose Entresto 11/06/2023. Continue other evidence-based cardiovascular medical therapies including spironolactone, and Jardiance. I spent a total of 30 minutes on the date of service in preparation, delivery, and documentation of the care provided to this patient, excluding any time spent in the performance of separately billed services. Subjective Patient resting in bed this morning. Good diuresis overnight. Weight down. He r eports mild improvement in his chest "heaviness" and shortness of breath but not yet at baseline. Mild palpitations reported this morning with elevated HR's. Abdominal bloating persists, but improved from yesterday. Review of Systems Review of Systems: All systems reviewed & are unremarkable except as noted in HPI & below Physical Exam Constitutional: WD/WN, vitals as above average body habitus; no acute distress Respiratory: no respiratory distress and no labored breathing Auscultation: + crackles (bases b/l ) and + rales Cardiovascular: Rate/Rhythm: + irregularly irregular Heart Sounds: + murmur (II/ systolic murmur) Vessels: + JVD Extremities: + edema (trace b/l edema) Gastrointestinal (Abdomen): normal bowel sounds, soft, nontender, no hepatosplenomegaly Neurologic: PERRL, EOMI, accommodation nl, no face palsy, no dysarthria Psychiatric: A+Ox3, euthymic affect Results & Data Vital Signs (Past 12 Hours) Vital Signs Temp Pulse Pulse Resp BP Pulse Ox O2 Del Method 11/05/23 08:44 113 H 11/05/23 08:08 36.4 C L 78 18 114/68 94 Room Air 11/05/23 04:00 36.6 C 91 H 18 101/64 98 Room Air 11/04/23 23:43 36.8 C 82 18 92/62 L 95 Room Air 11/04/23 23:20 95 H Laboratory Results Cardiac Enzymes 11/04/23 11/04/23 11/05/23 Range/Units 10:07 11:35 06:01 AST 23 (13-39) U/L Troponin I High Sens 27.2 H (0-20) pg/ml B-Natriuretic Peptide 633 H (0-100) pg/ml Coagulation 11/04/23 11/05/23 Range/Units 11:35 06:01 PT 10.9 (9.0-12.0) Seconds B-Natriuretic Peptide 633 H (0-100) pg/ml CBC 11/05/23 Range/Units 06:01 WBC 10.40 (4.8-10.8) K/ul RBC 4.75 (4.70-6.10) M/uL Hgb 13.5 L (14.0-18.0) g/dl Hct 40.8 L (42.0-52.0) % Plt Count 237 (130-400) K/uL Neut # (Auto) 7.66 H (1.40-6.50) K/uL Lymph # (Auto) 1.61 (1.20-3.40) K/uL [place] # (Auto) 0.91 H (0.11-0.59) K/uL Eos # (Auto) 0.12 (0.00-0.50) K/uL Baso # (Auto) 0.06 (0.00-0.20) K/uL Comprehensive Metabolic Panel 11/05/23 Range/Units 06:01 Sodium 137 (136-145) mmol/L Potassium 4.0 (3.5-5.1) mmol/L Chloride 106 (98-107) mmol/L Carbon Dioxide 23 (21-32) mmol/L BUN 16 (6-23) mg/dl Creatinine 0.91 (0.6-1.4) mg/dl Glucose 125 H (70-99(Fasting)) mg/dl Calcium 8.5 L (8.6-10.3) mg/dl AST 23 (13-39) U/L ALT 53 H (7-52) U/L Alkaline Phosphatase 79 (34-104) U/L Total Protein 6.5 (6.0-8.3) gm/dl Albumin 4.1 (3.4-5.0) gm/dl Intake and Output 11/04/23 11/05/23 11/05/23 22:59 06:59 14:59 Intake Total 1000 / 1150 150 / 1150 Output Total 2175 / 2575 400 / 2575 800 / 800 Balance -1175 / -1425 -250 / -1425 -800 / -800 Intake: Oral 1000 / 1150 150 / 1150 Output: Urine 2175 / 2575 400 / 2575 800 / 800 Other: Other Intake Source per pt, water intake throughout dayshift Weight 111.19 kg 108.908 kg Weight Measurement Method Standing Scale Standing Scale Diagnostic Findings Telemetry reviewed: Persistent atrial fibrillation. Overnight rates ranged 80-100's. This morning rates are trending higher and ranging 110-150's at times while patient resting in bed. Echo completed: LV is severely dilated global thinning of the LV person EF 15-20% severe global hypokinesis. LA is severely dilated Moderate to severe MR estimated systolic pulm pressure is 43 mmHg
[2023-11-05] MEDS: AMIODARONE / D5W 150 MG/100 ML BAG IV STA (11:33)
[2023-11-05] MEDS: AMIODARONE / D5W 360 MG/200 ML BAG IV ONE (11:42)
[2023-11-05] MEDS: RIVAROXABAN 20 MG TAB PO SCH (17:26)
[2023-11-05] MEDS: AMIODARONE / D5W 360 MG/200 ML BAG IV SCH (17:30)
--- NOTE | 2023-11-05 17:47 | Hospitalist Progress Note ---
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 BMP remains stable normal Cr and electrolytes -on empaglifozin -monitor I/o, weight, AM BMP and mag -[facility] cardiology consulting -ADRIANO stopped and planned initiation of entresto (2) Atrial fibrillation with RVR: Plan: -2 doses of 5 mg IV metoprolol in the ED, rate improved -continue metoprolol and digoxin -getting IV amiodarone load per cardiology, possible cardioversion tomorrow if remains in afib -continue xarelto (3) Type 2 diabetes mellitus: Plan: -Hold metformin -Monitor BSG ACHS, goal is 110-160 -Start CF of 40 and CR of 15 -Start 5 units lantus BID -Can continue Jardiance as he is also on this for Heart Failure -Adjust regimen as needed Plan AICD 2007 Mildly elevated troponin 28-->27 related to demand ischemia from CHF exacerbation and no evidence of ACS Mildly elevated AST, ALT - improved, mildly elevated bilirubin -this is caused by congestion from decompensated heart failure and TR and should improve with medical treatment of HF Hypertension - meds as above NEAL on CPAP - ordered Psoriasis, gout DVT ppx - on DOAC Admission and Anticipated Discharge Date Admission Date: November 04, 2023 Subjective dyspnea persists but improved, good UOP overnight, hard to tell whether abdominal swelling improved but UE edema has improved, no CP Physical Exam 2 Physical Exam: PHYSICAL EXAMINATION Last 24h vital signs reviewed, see documentation in flowsheet General: comfortable appearing, no distress, sitting up in bed HEENT: Normocephalic, atraumatic, pupils round and equal, sclerae anicteric, no conjunctival injection, moist mucus membranes Lungs: Normal respiratory effort. Crackles both bases one third of the way out Heart: Tachycardic irregular rate and rhythm, distant. +JVD Abdomen: Soft, nontender, nondistended. Bowel sounds present. Extremities: Warm, dry, well-perfused. No extremity edema. Neuro: Alert and oriented x 4, face symmetric, moves 4 extremities well Psych: Normal affect and behavior Results & Data Results & Data Vital Signs (Past 12 Hours) Vital Signs Temp Pulse Pulse Resp BP Pulse Ox O2 Del Method 11/05/23 15:31 36.7 C 82 18 128/81 94 Room Air 11/05/23 11:49 36.4 C L 69 18 120/77 93 Room Air 11/05/23 08:44 113 H 11/05/23 08:08 36.4 C L 78 18 114/68 94 Room Air Laboratory Results 11/05/23 06:01 11/05/23 06:01 PG Care Time/CCT Total # of Minutes Spent Total Time Spent with Patient: Total time spent is greater than 50% in coordination of care (as documented) at patient's floor/unit and/or counseling patient: Coding Level of Care Code 20243 SUB INP/OBS CARE 2/35MIN Diagnoses Acute on chronic combined systolic and diastolic CHF (congestive heart failure) I50.43 Atrial fibrillation with RVR I48.91 Type 2 diabetes mellitus without complication, without long-term current use of insulin E11.9 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
[2023-11-06 06:22] LABS: Basophils # (auto) 0.06 K/uL (0.00-0.20); Basophils % (auto) 0.5 %; Eosinophils # (auto) 0.12 K/uL (0.00-0.50); Eosinophils % (auto) 1.1 %; Hematocrit (blood only) 45.7 % (42.0-52.0); Hemoglobin 14.8 g/dl (14.0-18.0); Immature Granulocytes # (auto) 0.06 K/uL (0.01-0.20); Immature Granulocytes % (auto) 0.5 %; Lymphocytes # (auto) 2.06 K/uL (1.20-3.40); Lymphocytes % (auto) 18.2 %; Mean Corpuscular Hemoglobin 27.8 pg (25.0-34.0); Mean Corpuscular Hgb Conc 32.4 g/dL (32.0-36.0); Mean Corpuscular Volume 85.9 fL (80.0-100.0); Mean Platelet Volume 9.6 fL (9.4-12.4); Monocytes # (auto) 0.93 K/uL (0.11-0.59); Monocytes % (auto) 8.2 %; Neutrophils # (auto) 8.11 K/uL (1.40-6.50); Neutrophils % (auto) 71.5 %; Platelet Count 270 K/uL (130-400); RDW Coefficient of Variation 13.3 % (11.5-14.5); RDW Standard Deviation 41.1 fL (36.4-46.3); Red Blood Count 5.32 M/uL (4.70-6.10); White Blood Count 11.34 K/ul (4.8-10.8)
[2023-11-06 06:40] LABS: Albumin Globulin Ratio 1.7 (0.9-2); Albumin Level 4.5 gm/dl (3.4-5.0); BUN Creatinine Ratio 19.4 (10-20); Calcium 9.1 mg/dl (8.6-10.3); Creatinine Clr Calc Pharmacy 109.3 ml/min; Est GFR (African American) 98.4 ml/min; Est GFR (Non-African American) 84.9 ml/min; Globulin 2.7 gm/dl (2.5-4.0); Magnesium 2.7 mg/dl (1.7-2.4); Potassium 3.8 mmol/L (3.5-5.1); Total Protein 7.2 gm/dl (6.0-8.3)
--- NOTE | 2023-11-06 07:24 | Anesthesiology Consultation ---
Date of Service November 06, 2023 Assessment & Plan Chart Review Chart Review: Acceptable Risk for Surgery Consults Requested none ASA ASA3 Proposed Anesthesia Anesthesia Type: MAC Risk / Benefits Reviewed With: PT / POA / Parent / Guardian, Accepts Plan and Informed Consent Obtained History Surgery Operation Date: 11/06/23 07:15 Proposed Procedures p Cardioversion - Bijan Pryor DO Height/Weight Height: 6 ft Weight: 106.3 kg Allergies Allergy/AdvReac Type Severity Reaction Status Date / Time Penicillins Allergy Unknown Unknown Verified 11/04/23 08:32 Medications Home Medications Medication Instructions Recorded Confirmed Last Taken amiodarone 200 mg tablet 200 mg PO DAILY 07/22/18 11/04/23 11/04/23 digoxin 125 mcg (0.125 mg) tablet 125 mcg PO DAILY 07/22/18 11/04/23 11/04/23 furosemide 40 mg tablet 40 mg PO BID 07/22/18 11/04/23 11/04/23 lisinopril 5 mg tablet 5 mg PO DAILY 07/22/18 11/04/23 11/04/23 magnesium oxide 400 mg PO DAILY 07/22/18 11/04/23 11/04/23 metoprolol succinate 25 mg 25 mg PO BID 07/22/18 11/04/23 11/04/23 tablet,extended release 24 hr rivaroxaban 20 mg tablet 20 mg PO DAILY 07/22/18 11/04/23 11/04/23 spironolactone 25 mg tablet 25 mg PO DAILY 07/22/18 11/04/23 11/04/23 lancets 33 gauge ([facility] ea 02/05/21 06/24/23 Unknown Lancets) allopurinol 300 mg tablet 300 mg PO DAILY 10/28/21 11/04/23 11/04/23 cyanocobalamin (vitamin B-12) 1,000 mcg PO DAILY 10/28/21 11/04/23 11/04/23 1,000 mcg tablet (Vitamin B-12) ustekinumab 90 mg/mL subcutaneous 90 mg subcut UD 10/28/21 11/04/23 Unknown syringe (Stelara) blood sugar diagnostic (Where Was it FilmedTouch #100 ea 02/07/22 06/24/23 Unknown Verio test strips) cholecalciferol (vitamin D3) 25 5,000 unit PO DAILY 02/07/22 11/04/23 11/04/23 mcg (1,000 unit) tablet (Vitamin D3) potassium chloride 10 mEq 10 meq PO BID 04/21/22 11/04/23 11/04/23 tablet,extended release(part/cryst) empagliflozin 25 mg tablet 25 mg PO DAILY #90 tabs 06/01/23 11/04/23 11/04/23 (Jardiance) metformin 500 mg tablet 1,000 mg (2 x 500 mg) PO BID 90 06/24/23 11/04/23 11/04/23 days #360 tabs rosuvastatin 10 mg tablet 10 mg PO DAILY #90 tabs 06/24/23 11/04/23 11/04/23 Active Medications Generic Name Dose Route Start Last Admin Trade Name Freq PRN Reason Stop Dose Admin Allopurinol 300 mg 11/05/23 09:00 11/05/23 08:45 Allopurinol 300 Mg Tab PO 12/05/23 08:59 300 mg DAILY TERENCE Administration Amiodarone HCl 200 mg 11/05/23 09:00 11/05/23 08:45 Amiodarone 200 Mg Tab PO 12/05/23 08:59 200 mg DAILY TERENCE Administration Digoxin 0.125 mg 11/05/23 09:00 11/05/23 08:44 Digoxin 0.125 Mg Tab PO 12/05/23 08:59 0.125 mg DAILY TERENCE Administration Empagliflozin 25 mg 11/05/23 09:00 11/05/23 08:46 Empagliflozin 25 Mg Tab PO 12/05/23 08:59 25 mg DAILY TERENCE Administration Furosemide 40 mg 11/05/23 09:00 11/05/23 17:25 Furosemide 40 Mg/4 Ml Vial IV 12/05/23 08:59 40 mg BID17 TERENCE Administration Amiodarone HCl/Dextrose 360 mg in 200 mls @ 16.667 mls/hr 11/05/23 17:15 11/06/23 05:14 Nexterone / D5w IV 12/05/23 17:14 0.5 mg/min .Q12H TERENCE 16.7 mls/hr Administration 0.5 MG/MIN Insulin Aspart 0 units 11/04/23 11:30 11/06/23 06:50 Insulin Aspart Per Unit Charge SC 12/04/23 11:29 Not Given ACHS TERENCE Insulin Glargine 5 units 11/04/23 21:00 11/05/23 22:23 Lantus Per Unit Charge SQ 12/04/23 20:59 Not Given BID TERENCE Magnesium Oxide 400 mg 11/05/23 09:00 11/05/23 08:46 Magnesium Oxide 400 Mg Tab PO 12/05/23 08:59 400 mg DAILY TERENCE Administration Metoprolol Succinate 25 mg 11/04/23 21:00 11/05/23 22:22 Metoprolol Succ 25mg Ext Rel Tab PO 12/04/23 20:59 25 mg BID TERENCE Administration Potassium Chloride 20 meq 11/04/23 16:30 11/05/23 22:22 Potassium Chloride Crtab 20 Meq Tabcr PO 12/04/23 16:29 20 meq BID TERENCE Administration Rivaroxaban 20 mg 11/05/23 16:30 11/05/23 17:26 Rivaroxaban 20 Mg Tab PO 12/05/23 16:29 20 mg QDD TERENCE Administration Rosuvastatin Calcium 10 mg 11/05/23 09:00 11/05/23 08:46 Rosuvastatin Calcium 10 Mg Tab PO 12/05/23 08:59 10 mg DAILY TERENCE Administration Spironolactone 25 mg 11/05/23 09:00 11/05/23 08:46 Spironolactone 25 Mg Tab PO 12/05/23 08:59 25 mg DAILY TERENCE Administration NPO Date Last Intake of Fluids: 11/05/23 Time Last Intake of Fluids: 23:59 Date Last Intake of Solids: 11/05/23 Time Last Intake of Solids: 23:59 Past Medical History Medical History (Updated 11/06/23 @ 07:22 by Alexandra Burrell DO) History of cardioversion Vitamin D deficiency Hyperlipidemia Gout Dilated cardiomyopathy Controlled type 2 diabetes mellitus Congestive heart failure Atrial fibrillation Stress fracture of foot Sinusitis Secondary hyperparathyroidism Psoriatic arthritis Obstructive sleep apnea Obesity (BMI 30.0-34.9) Mineral deficiency Long-term use of immunosuppressant medication Hypertension History of osteoporotic pathological fracture Cardiac arrhythmia Allergic rhinitis Psoriasis Cardiomegaly CHF (congestive heart failure) Exercise / Class Metabolic Activity II 4-5 Yardwork/Stairs/Walk up hill Past Family History Family History Other No significant family history Denies family history of Ovarian cancer Prostate cancer Myocardial infarction Breast cancer Colorectal cancer Past Surgical History Surgical History (Updated 11/06/23 @ 07:22 by Alexandra Burrell DO) History of implantable cardiac defibrillator (ICD) S/P knee surgery Past Anesthesia History No Hx of Anesthesia Complications and No Family Hx of Anesthesia Complications History of PONV No Hx of PONV and No Hx of Motion Sickness Social History Smoking Status: Never smoker Do You Dip or Chew Tobacco: No Hx Alcohol Use: Yes alcohol intake frequency: holidays/special occasions only Hx Substance Use: No Physical Exam Vital Signs Last Vital Signs Temp 36.9 C 11/06/23 04:51 Pulse 87 11/06/23 04:51 Resp 16 11/06/23 04:51 BP 103/73 11/06/23 04:51 Pulse Ox 97 11/06/23 04:51 O2 Del Method Room Air 11/06/23 04:51 O2 Flow Rate 0 11/04/23 07:57 ENMT Mouth: no TMJ abnormality Thyromental Distance: > or= 3.5 Finger Breadths Mallampati Class: II Neck normal visual inspection and trachea midline; neck extension not limited Respiratory normal respiratory effort Auscultation: lungs clear to auscultation bilaterally Cardiovascular Rate/Rhythm: regular rate (irreg irreg) and regular rhythm Heart Sounds: no murmur Musculoskeletal Spine: normal cervical ROM Extremities: full ROM of extremities Neurologic moves all extremities Psychiatric Orientation: alert and oriented x 3 Testing Laboratory Results 11/06/23 05:36 11/06/23 05:36 PT 10.9 Seconds (9.0-12.0) 11/05/23 06:01 INR 1.0 (0.9-1.1) 11/05/23 06:01 11/06/23 06:39 POC Glucose 122 H
--- NOTE | 2023-11-06 07:52 | Anesthesiology Progress Note ---
Date of Service November 06, 2023 Anesthesia Post Procedure Vital Signs Vital Signs: Temp Pulse Pulse Resp BP Pulse Ox O2 Del Method 11/06/23 07:10 94 H 18 104/82 11/06/23 04:51 36.9 C 87 16 103/73 97 Room Air 11/06/23 00:34 97 H 11/05/23 23:56 36.7 C 77 18 113/78 94 CPAP 11/05/23 23:01 50 L 22 95 11/05/23 19:42 36.6 C 70 18 107/72 94 Room Air 11/05/23 15:31 36.7 C 82 18 128/81 94 Room Air 11/05/23 11:49 36.4 C L 69 18 120/77 93 Room Air 11/05/23 08:44 113 H 11/05/23 08:08 36.4 C L 78 18 114/68 94 Room Air Pain Intensity Chest: Pain Intensity: 6 Transfer of Care Handoff Completed per policy Notes Mental Status: alert / awake / arousable Patient Amnestic to Procedure: Yes Nausea / Vomiting: adequately controlled Pain: adequately controlled Airway Patency, RR, SpO2: stable & adequate BP & HR: stable & adequate Hydration State: stable & adequate Anesthetic Complications: no major complications apparent and Pt Satisfied with anesthetic care
[2023-11-06] MEDS ORDERED: PROPOFOL IV EMULSION 10 MG/ML 20 ML VIAL IV ONE (08:05)
[2023-11-06] MEDS: VALSARTAN/SACUBITRIL 26/24MG TAB PO SCH (08:31)
[2023-11-06] MEDS ORDERED: Nursing to Pharmacy Communication SCH (08:45)
--- NOTE | 2023-11-06 08:46 | Cardioversion ---
Date of Service November 06, 2023 Electrical Cardioversion Rpt Electrical Cardioversion Report Indication: Persistent atrial fibrillation with rapid ventricular response, acute decompensated heart failure with reduced ejection fraction. Complications: None. Estimated blood loss: None. Anesthesia: Conscious sedation provided by the anesthesia service. Please see separate report. Procedural summary: Patient brought to the cardiac catheterization holding area in a fasting state. Atrial fibrillation confirmed on monitor. Defibrillator pads were placed in anterior, and posterior position. When adequate sedation achieved, the defibrillator was synced to the QRS complex. 200 J, and 300 J shocks were delivered, however, patient only briefly returned to sinus rhythm and reverted back to atrial fibrillation. A third, 360 J shock was delivered which successfully converted patient from atrial fibrillation to normal sinus rhythm. Patient tolerated procedure well. No focal neurologic deficits post cardioversion. Conclusion: Successful external direct-current cardioversion with 360 J.
[2023-11-06] MEDS: POTASSIUM CHLORIDE CRTAB 20 MEQ TABCR PO SCH (08:48)
--- NOTE | 2023-11-06 08:55 | Cardiology Progress Note ---
Date of Service November 06, 2023 Assessment & Plan (1) Acute on chronic heart failure with reduced ejection fraction and diastolic dysfunction: (2) Atrial fibrillation with controlled ventricular rate: (3) Dilated cardiomyopathy: Plan 48-year-old male with acute on chronic heart failure with reduced ejection fraction. External direct-current cardioversion performed this a.m.. Currently in sinus rhythm. Continue intravenous amiodarone for an additional 24 hours. Continue Xarelto, metoprolol, and digoxin as ordered. Outpatient electrophysiology referral to consider ablation. Lisinopril held for 48 hours. Entresto 26/24 mg twice daily ordered. Continue spironolactone, Toprol-XL, and Jardiance. Continue IV diuresis. Monitor fluid balance, GFR, and daily weight. Admission and Anticipated Discharge Date Admission Date: November 04, 2023 Subjective Patient seen and examined at the bedside post cardioversion. Tolerated procedure well, however, required 3 shocks. Ultimately successful 360 J. Fluid balance -4.7 L. Review of Systems Review of Systems: All systems reviewed & are unremarkable except as noted in Subjective Physical Exam Constitutional: well nourished; no acute distress Respiratory: no respiratory distress, no labored breathing and no retractions Auscultation: + rales (Bases bilateral); no rhonchi and no wheezes Cardiovascular: Rate/Rhythm: regular rate and regular rhythm Heart Sounds: normal S1, normal S2 and + murmur (2/6 holosystolic murmur) Vessels: + JVD and radial pulses present; no carotid bruit Extremities: no edema Gastrointestinal (Abdomen): Inspection/Auscultation: + abdomen distended; + abnormal bowel sounds Percussion/Palpation: abdomen soft; abdomen nontender, no guarding and abdomen not rigid Neurologic: CN's II-XI intact bilaterally and moves all extremities; no focal motor deficits Psychiatric: A+Ox3, euthymic affect Results & Data Vital Signs (Past 12 Hours) Vital Signs Temp Pulse Pulse Resp BP Pulse Ox O2 Del Method 11/06/23 08:32 77 11/06/23 08:29 36.6 C 81 18 110/62 95 Room Air 11/06/23 08:00 75 16 101/73 96 Room Air 11/06/23 07:45 76 16 106/75 96 Room Air 11/06/23 07:10 94 H 18 104/82 11/06/23 07:00 93 H 11/06/23 04:51 36.9 C 87 16 103/73 97 Room Air 11/06/23 00:34 97 H 11/05/23 23:56 36.7 C 77 18 113/78 94 CPAP 11/05/23 23:01 50 L 22 95 Laboratory Results Cardiac Enzymes 11/06/23 Range/Units 05:36 AST 18 (13-39) U/L CBC 11/06/23 Range/Units 05:36 WBC 11.34 H (4.8-10.8) K/ul RBC 5.32 (4.70-6.10) M/uL Hgb 14.8 (14.0-18.0) g/dl Hct 45.7 (42.0-52.0) % Plt Count 270 (130-400) K/uL Neut # (Auto) 8.11 H (1.40-6.50) K/uL Lymph # (Auto) 2.06 (1.20-3.40) K/uL [place] # (Auto) 0.93 H (0.11-0.59) K/uL Eos # (Auto) 0.12 (0.00-0.50) K/uL Baso # (Auto) 0.06 (0.00-0.20) K/uL Comprehensive Metabolic Panel 11/06/23 Range/Units 05:36 Sodium 138 (136-145) mmol/L Potassium 3.8 (3.5-5.1) mmol/L Chloride 104 (98-107) mmol/L Carbon Dioxide 23 (21-32) mmol/L BUN 20 (6-23) mg/dl Creatinine 1.03 (0.6-1.4) mg/dl Glucose 127 H (70-99(Fasting)) mg/dl Calcium 9.1 (8.6-10.3) mg/dl AST 18 (13-39) U/L ALT 43 (7-52) U/L Alkaline Phosphatase 88 (34-104) U/L Total Protein 7.2 (6.0-8.3) gm/dl Albumin 4.5 (3.4-5.0) gm/dl Intake and Output 11/05/23 11/06/23 11/06/23 22:59 06:59 14:59 Intake Total 328.112 / 975.947 167.835 / 975.947 Output Total 1949 / 56 790 / 5690 Balance -1621.888 / -4714.053 -622.165 / -4714.053 Intake: IV 328.112 / 495.947 167.835 / 495.947 Amiodarone / D5w 150 mg In 100 100 / 100 ml @ 600 mls/hr IV NOW [facility] Rx#: [id number] Amiodarone / D5w 360 mg In 200 228.112 / 395.947 167.835 / 395.947 ml @ 0.5 MG/MIN 16.667 mls/hr IV .Q[facility]H [facility] Rx#:[id number] Output: Urine 1949 790 / 5690 Other: Other Intake Source NPO Weight 106.3 kg 106.3 kg Weight Measurement Method Standing Scale Patient Weight 11/07/23 06:59 Weight 106.3 kg
--- NOTE | 2023-11-06 12:30 | Electrocardiogram Report ---
Test Reason : Blood Pressure : / mmHG Vent. Rate : 083 BPM Atrial Rate : 083 BPM P-R Int : 208 ms QRS Dur : 120 ms QT Int : 416 ms P-R-T Axes : 062 -76 079 degrees QTc Int : 488 ms Sinus rhythm with occasional Premature ventricular complexes Left axis deviation Left ventricular hypertrophy with QRS widening and repolarization abnormality ( R in aVL , [place] pr oduct ) Abnormal ECG When compared with ECG of 04-NOV-2023 07:41, (unconfirmed) Sinus rhythm has replaced Atrial fibrillation ST elevation now present in Inferior leads Confirmed by Amadeo Urrutia ([id number]) on 11/06/2023 12:29:58 PM Referred By: Samanta Jung Confirmed By:Amadeo Urrutia
--- NOTE | 2023-11-06 15:43 | Hospitalist Progress Note ---
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 BMP remains stable normal Cr and electrolytes reviewed 11/05 -on empaglifozin -monitor I/o, weight, AM BMP and mag -[facility]ADRIANO stopped and entresto started 11/05 (2) Atrial fibrillation with RVR: Plan: -2 doses of 5 mg IV metoprolol in the ED, rate improved -continue metoprolol and digoxin -successful cardioversion 11/05 -continue IV amiodarone -continue xarelto -EP referral planned by cardiology to consider ablation (3) Type 2 diabetes mellitus: Plan: -Hold metformin -Monitor BSG ACHS, goal is 110-160 -Start CF of 40 and CR of 15 -Start 5 units lantus BID -Can continue Jardiance as he is also on this for Heart Failure -Adjust regimen as needed -at goal 11/05 Plan AICD 2007 Mildly elevated troponin 28-->27 related to demand ischemia from CHF exacerbation and no evidence of ACS Mildly elevated AST, ALT - improved, mildly elevated bilirubin -this is caused by congestion from decompensated heart failure and TR and should improve with medical treatment of HF -LFT and bili normal 11/05 Hypertension - meds as above NEAL on CPAP - ordered Psoriasis, gout DVT ppx - on DOAC Admission and Anticipated Discharge Date Admission Date: November 04, 2023 Subjective shortness of breath improved, no orthopnea, cough improved abd swelling resolving UE edema resolved Physical Exam 2 Physical Exam: PHYSICAL EXAMINATION Last 24h vital signs reviewed, see documentation in flowsheet General: comfortable appearing, no distress, sitting up in bed HEENT: Normocephalic, atraumatic, pupils round and equal, sclerae anicteric, no conjunctival injection, moist mucus membranes Lungs: Normal respiratory effort. Crackles in bases improved Heart: reg rate and rhythm, distant. no JVD Abdomen: Soft, nontender, nondistended. Abdomen much more flat Bowel sounds present. Extremities: Warm, dry, well-perfused. No extremity edema. Neuro: Alert and oriented x 4, face symmetric, moves 4 extremities well Psych: Normal affect and behavior Results & Data Results & Data Vital Signs (Past 12 Hours) Vital Signs Temp Pulse Pulse Resp BP Pulse Ox O2 Del Method 11/06/23 14:48 36.9 C 79 18 105/71 95 Room Air 11/06/23 12:32 36.8 C 81 18 102/69 93 Room Air 11/06/23 10:32 75 11/06/23 08:49 84 18 118/85 97 Room Air 11/06/23 08:32 77 11/06/23 08:29 36.6 C 81 18 110/62 95 Room Air 11/06/23 08:00 75 16 101/73 96 Room Air 11/06/23 07:45 76 16 106/75 96 Room Air 11/06/23 07:10 94 H 18 104/82 11/06/23 07:00 93 H 11/06/23 04:51 36.9 C 87 16 103/73 97 Room Air Laboratory Results 11/06/23 05:36 11/06/23 05:36 PG Care Time/CCT Total # of Minutes Spent Total Time Spent with Patient: Total time spent is greater than 50% in coordination of care (as documented) at patient's floor/unit and/or counseling patient: Coding Level of Care Code 80910 SUB INP/OBS CARE 2/35MIN Diagnoses Acute on chronic combined systolic and diastolic CHF (congestive heart failure) I50.43 Atrial fibrillation with RVR I48.91 Type 2 diabetes mellitus without complication, without long-term current use of insulin E11.9 Diabetes mellitus halfway insulin use: without parts counterman use Diabetes mellitus complication status: without complication (3) Type 2 diabetes mellitus Diabetes mellitus halfway insulin use: without halfway use Diabetes mellitus complication status: without complication Qualified Code(s): E11.9 - Type 2 diabetes mellitus without complications
[2023-11-07 05:05] LABS: Basophils # (auto) 0.04 K/uL (0.00-0.20); Basophils % (auto) 0.3 %; Eosinophils # (auto) 0.09 K/uL (0.00-0.50); Eosinophils % (auto) 0.8 %; Hematocrit (blood only) 47.5 % (42.0-52.0); Hemoglobin 15.7 g/dl (14.0-18.0); Immature Granulocytes # (auto) 0.04 K/uL (0.01-0.20); Immature Granulocytes % (auto) 0.3 %; Lymphocytes # (auto) 1.63 K/uL (1.20-3.40); Lymphocytes % (auto) 13.8 %; Mean Corpuscular Hemoglobin 28.1 pg (25.0-34.0); Mean Corpuscular Hgb Conc 33.1 g/dL (32.0-36.0); Mean Platelet Volume 9.1 fL (9.4-12.4); Monocytes # (auto) 0.96 K/uL (0.11-0.59); Monocytes % (auto) 8.1 %; Neutrophils # (auto) 9.03 K/uL (1.40-6.50); Neutrophils % (auto) 76.7 %; Platelet Count 300 K/uL (130-400); RDW Coefficient of Variation 13.3 % (11.5-14.5); RDW Standard Deviation 41.2 fL (36.4-46.3); Red Blood Count 5.59 M/uL (4.70-6.10); White Blood Count 11.79 K/ul (4.8-10.8)
[2023-11-07 05:30] LABS: Albumin Globulin Ratio 1.3 (0.9-2); Albumin Level 4.4 gm/dl (3.4-5.0); BUN Creatinine Ratio 22.3 (10-20); Bilirubin,Total 1.1 mg/dl (0.2-1.0); Calcium 9.3 mg/dl (8.6-10.3); Creatinine Clr Calc Pharmacy 119.8 ml/min; Est GFR (African American) 109.9 ml/min; Est GFR (Non-African American) 94.8 ml/min; Globulin 3.3 gm/dl (2.5-4.0); Magnesium 2.7 mg/dl (1.7-2.4); Total Protein 7.7 gm/dl (6.0-8.3)
--- NOTE | 2023-11-07 07:46 | Cardiology Progress Note ---
<Statement entered by Ha Bruno DO - 11/07/23 12:23> I have reviewed the advance practitioner's documentation, and I agree with, and take responsibility for the plan of care. I have personally performed a history and physical examination on the patient. Patient responding to IV diuresis. He is maintaining sinus rhythm. He remains volume overloaded. Continue to monitor I/Os and electrolytes. Will continue IV diuresis. Date of Service November 07, 2023 Assessment & Plan (1) Acute on chronic heart failure with reduced ejection fraction and diastolic dysfunction: (2) Atrial fibrillation with controlled ventricular rate: (3) Dilated cardiomyopathy: Plan 48-year-old male with acute on chronic heart failure with reduced ejection fraction. External direct-current cardioversion performed yesterday with successful church to sinus rhythm. No issues overnight. Currently in sinus rhythm. Continue intravenous amiodarone for an additional 24 hours and then discontinue. Continue Xarelto, metoprolol, and digoxin as ordered. Outpatient electrophysiology referral to consider ablation. Lisinopril held for 48 hours. Entresto 26/24 mg twice daily ordered. Continue spironolactone, Toprol-XL, and Jardiance. Continue IV diuresis. Monitor fluid balance, GFR, and daily weight. Case has been discussed with Dr. Bruno. Further recommendations regarding plan of care as per his assessment. I spent a total of 30 minutes on the date of service in preparation, delivery, documentation of the care provided to the patient excluding any time spent in the performance of separately billed services. MANJIT Garcia [facility] Admission and Anticipated Discharge Date Admission Date: November 04, 2023 Supervising Physician Co-Signing Physician Notes I have reviewed the advance practitioner's documentation, and I agree with, and take responsibility for the plan of care. I have personally performed a history and physical examination on the patient. Patient responding well to IV diuresis. Continue IV diuresis. Monitor I/Os and electrolytes. I spent a total of 30 minutes on the date of service in preparation, delivery, and documentation of the care provided to this patient, excluding any time spent in the performance of separately billed services. Subjective 11/07/23: Patient seen and examined today in follow up. He is resting comfortably in bed visiting with family. Offers no concerns or complaints. Responding well to IV diuresis. Underwent DCCV 11/06/2023 with successful church of NSR. Maintaining sinus rhythm. Denies chest pain, pressure, palpitations, shortness of breath, PND, pre-syncope or syncope. Continues to endorse some mild abdominal bloating with is his normal with volume overload, but no lower extremity edema. labs, diagnostics, vitals, telemetry and documentation reviewed. Review of telemetry demonstrates NSR 60-80's. No acute events. overnight. Review of Systems Review of Systems: All systems reviewed & are unremarkable except as noted in HPI & below Physical Exam Constitutional: well developed and well nourished; no acute distress and not ill appearing Neck: normal visual inspection and trachea midline Respiratory: normal respiratory effort; no respiratory distress Auscultation: + diminished lung sounds (bilateral bases); no crackles, no rales, no rhonchi and no wheezes Cardiovascular: Rate/Rhythm: regular rate and regular rhythm Heart Sounds: normal S1 and normal S2 Vessels: dorsalis pedis pulses present; no JVD Extremities: no edema Skin: no rashes, warm and dry Psychiatric: A+Ox3, euthymic affect Results & Data Vital Signs (Past 12 Hours) Vital Signs Temp Pulse Pulse Resp BP BP Pulse Ox 11/07/23 03:47 36.4 C L 72 17 93/72 L 93 11/06/23 23:55 36.6 C 69 17 104/57 L 94 11/06/23 22:36 80 11/06/23 20:20 36.6 C 80 18 111/64 97 O2 Del Method 11/07/23 03:47 Room Air 11/06/23 23:55 Room Air 11/06/23 22:36 11/06/23 20:20 Room Air Laboratory Results Cardiac Enzymes 11/07/23 Range/Units 04:38 AST 24 (13-39) U/L CBC 11/07/23 Range/Units 04:38 WBC 11.79 H (4.8-10.8) K/ul RBC 5.59 (4.70-6.10) M/uL Hgb 15.7 (14.0-18.0) g/dl Hct 47.5 (42.0-52.0) % Plt Count 300 (130-400) K/uL Neut # (Auto) 9.03 H (1.40-6.50) K/uL Lymph # (Auto) 1.63 (1.20-3.40) K/uL [place] # (Auto) 0.96 H (0.11-0.59) K/uL Eos # (Auto) 0.09 (0.00-0.50) K/uL Baso # (Auto) 0.04 (0.00-0.20) K/uL Comprehensive Metabolic Panel 11/07/23 Range/Units 04:38 Sodium 135 L (136-145) mmol/L Potassium 4.0 (3.5-5.1) mmol/L Chloride 103 (98-107) mmol/L Carbon Dioxide 21 (21-32) mmol/L BUN 21 (6-23) mg/dl Creatinine 0.94 (0.6-1.4) mg/dl Glucose 115 H (70-99(Fasting)) mg/dl Calcium 9.3 (8.6-10.3) mg/dl AST 24 (13-39) U/L ALT 39 (7-52) U/L Alkaline Phosphatase 95 (34-104) U/L Total Protein 7.7 (6.0-8.3) gm/dl Albumin 4.4 (3.4-5.0) gm/dl Intake and Output 11/06/23 11/07/23 11/07/23 22:59 06:59 14:59 Intake Total 197.06 / 1697.06 400 / 1697.06 Output Total 2024 550 / 5176 Balance -1827.94 / -3478.94 -150 / -3478.94 Intake: IV 197.06 / 397.06 200 / 397.06 Amiodarone / D5w 360 mg In 200 197.06 / 397.06 200 / 397.06 ml @ 0.5 MG/MIN 16.667 mls/hr IV .Q12H [facility] Rx#:[id number] Oral 200 / 1300 Output: Urine 2024 550 / 5175 Other: Weight 105.9 kg Weight Measurement Method Standing Scale
--- NOTE | 2023-11-07 17:23 | Hospitalist Progress Note ---
Date of Service November 07, 2023 Assessment & Plan (1) Acute on chronic combined systolic and diastolic CHF (congestive heart failure): Plan: 48 y/o with history of viral cardiomyopathy admitted with acute on chronic systolic and diastolic heart failure and atrial fibrillation with rapid ventricular rate -11/03 TTE with EF 15-20%, mod-severe MR, mod TR, mild pulmonary hypertension -improving on IV diuretics - continue same lasix 40 IV bid, spironolactone, increased potassium replacement. continue diuretics IV today -on empaglifozin -monitor I/o, weight, AM BMP and mag - BMP stable today electrolytes ok and BUN/Cr normal 11/06 -[facility] cardiology consulting -ADRIANO stopped and entresto started 11/05 (2) Atrial fibrillation with RVR: Plan: -2 doses of 5 mg IV metoprolol in the ED, rate improved -continue metoprolol and digoxin -successful cardioversion 11/05 -continue IV amiodarone 24h more per cardiology recs -continue xarelto -EP referral planned by cardiology to consider ablation (3) Type 2 diabetes mellitus: Plan: -Hold metformin -Monitor BSG ACHS, goal is 110-160 -Start CF of 40 and CR of 15 -Start 5 units lantus BID -Can continue Jardiance as he is also on this for Heart Failure -Adjust regimen as needed -at goal 11/06 Plan AICD 2007 Mildly elevated troponin 28-->27 related to demand ischemia from CHF exacerbation and no evidence of ACS Mildly elevated AST, ALT - improved, mildly elevated bilirubin -this is caused by congestion from decompensated heart failure and TR and should improve with medical treatment of HF -LFT and bili normal 11/05, 11/06 Leukocytosis - neutrophils and monocytes elevated. also elevated 10/28/23. no other labs this year. appears like leukemoid reaction but no obvious culprits. Obtain peripheral blood smear / path consult. Hypertension - meds as above NEAL on CPAP - ordered Psoriasis, gout DVT ppx - on DOAC Admission and Anticipated Discharge Date Admission Date: November 04, 2023 Subjective breathing is fine and no leg or arm edema, having less UOP response to lasix so thinks he may be getting close to dry remains in NSR on tele Physical Exam 2 Physical Exam: PHYSICAL EXAMINATION Last 24h vital signs reviewed, see documentation in flowsheet General: comfortable appearing, no distress, sitting up in bed HEENT: Normocephalic, atraumatic, pupils round and equal, sclerae anicteric, no conjunctival injection, moist mucus membranes Lungs: Normal respiratory effort. R base clear, slight crackles in L base Heart: reg rate and rhythm, distant. no JVD Abdomen: Soft, nontender, nondistended. Abdomen much more flat Bowel sounds present. Extremities: Warm, dry, well-perfused. No extremity edema. Neuro: Alert and oriented x 4, face symmetric, moves 4 extremities well Psych: Normal affect and behavior Results & Data Results & Data Vital Signs (Past 12 Hours) Vital Signs Temp Pulse Pulse Resp BP Pulse Ox O2 Del Method 11/07/23 15:04 36.7 C 73 18 98/66 L 92 Room Air 11/07/23 11:55 36.7 C 93 H 18 103/71 94 Room Air 11/07/23 08:57 68 11/07/23 08:25 36.5 C 70 18 104/75 94 Room Air 11/07/23 08:00 Room Air Laboratory Results 11/07/23 04:38 11/07/23 04:38 PG Care Time/CCT Total # of Minutes Spent Total Time Spent with Patient: Total time spent is greater than 50% in coordination of care (as documented) at patient's floor/unit and/or counseling patient: Coding Level of Care Code 81433 SUB INP/OBS CARE 2/35MIN Diagnoses Acute on chronic combined systolic and diastolic CHF (congestive heart failure) I50.43 Atrial fibrillation with RVR I48.91 Type 2 diabetes mellitus without complication, without long-term current use of insulin E11.9 Diabetes mellitus buttermaker continuous churn insulin use: without buttermaker continuous churn use Diabetes mellitus complication status: without complication (3) Type 2 diabetes mellitus Diabetes mellitus snf insulin use: without buttermaker continuous churn use Diabetes mellitus complication status: without complication Qualified Code(s): E11.9 - Type 2 diabetes mellitus without complications
[2023-11-08 05:06] LABS: Basophils # (auto) 0.06 K/uL (0.00-0.20); Basophils % (auto) 0.6 %; Eosinophils # (auto) 0.13 K/uL (0.00-0.50); Eosinophils % (auto) 1.2 %; Hematocrit (blood only) 49.3 % (42.0-52.0); Hemoglobin 16.7 g/dl (14.0-18.0); Immature Granulocytes # (auto) 0.14 K/uL (0.01-0.20); Immature Granulocytes % (auto) 1.3 %; Lymphocytes # (auto) 1.97 K/uL (1.20-3.40); Lymphocytes % (auto) 18.1 %; Mean Corpuscular Hemoglobin 29.1 pg (25.0-34.0); Mean Corpuscular Hgb Conc 33.9 g/dL (32.0-36.0); Mean Platelet Volume 9.4 fL (9.4-12.4); Monocytes # (auto) 1.01 K/uL (0.11-0.59); Monocytes % (auto) 9.3 %; Neutrophils # (auto) 7.59 K/uL (1.40-6.50); Neutrophils % (auto) 69.5 %; Platelet Count 328 K/uL (130-400); RDW Coefficient of Variation 13.3 % (11.5-14.5); RDW Standard Deviation 41.2 fL (36.4-46.3); Red Blood Count 5.73 M/uL (4.70-6.10)
[2023-11-08 05:28] LABS: Calcium 9.1 mg/dl (8.6-10.3); Creatinine Clr Calc Pharmacy 103.1 ml/min; Est GFR (African American) 91.9 ml/min; Est GFR (Non-African American) 79.3 ml/min; Magnesium 2.6 mg/dl (1.7-2.4); Potassium 4.2 mmol/L (3.5-5.1)
--- NOTE | 2023-11-08 08:49 | Cardiology Progress Note ---
Date of Service November 08, 2023 Assessment & Plan (1) Acute on chronic heart failure with reduced ejection fraction and diastolic dysfunction: (2) Atrial fibrillation with controlled ventricular rate: (3) Dilated cardiomyopathy: Plan 48-year-old male with acute on chronic heart failure with reduced ejection fraction. External direct-current cardioversion performed yesterday with successful hoahaoism to sinus rhythm. Unfortunately had flipped back to A-fib, rate controlled this morning. Continue on [id number] daily. Continue Xarelto, metoprolol, and digoxin as ordered. Outpatient electrophysiology referral to consider ablation. Lisinopril held for 48 hours. Entresto 26/24 mg twice daily ordered. Continue spironolactone, Toprol-XL, and Jardiance. Continue IV diuresis. Monitor fluid balance, GFR, and daily weight. Case has been discussed with Dr. Bruno. Further recommendations regarding plan of care as per his assessment. I spent a total of 30 minutes on the date of service in preparation, delivery, documentation of the care provided to the patient excluding any time spent in the performance of separately billed services. MANJIT Garcia [facility] Cardiology [facility] Admission and Anticipated Discharge Date Admission Date: November 04, 2023 Supervising Physician Co-Signing Physician Notes I have reviewed the advance practitioner's documentation, and I agree with, and take responsibility for the plan of care. I have personally performed a history and physical examination on the patient. Patient responding well to IV diuresis. Continue IV diuresis. Monitor I/Os and electrolytes. Patient unfortunately went back into atrial fibrillation but rates have been controlled and is asymptomatic. Will monitor for now and hopefully patient reverts back to sinus rhythm. I spent a total of 30 minutes on the date of service in preparation, delivery, and documentation of the care provided to this patient, excluding any time spent in the performance of separately billed services. Subjective Patient seen and examined in follow up today. Feeling well overall. Denies any chest pain, pressure, palpitations, shortness of breath or lower extremity edema. Continues with some abdominal distension. Labs, vitals, diagnostics, telemetry and documentation reviewed. Telemetry reviewed showing patient had converted to A-fib rates 90's at 0749. Review of Systems Review of Systems: All systems reviewed & are unremarkable except as noted in HPI & below Physical Exam Constitutional: well developed and well nourished; no acute distress and not ill appearing Neck: normal visual inspection and trachea midline Respiratory: normal respiratory effort; no respiratory distress Auscultation: + diminished lung sounds (bilateral bases); no crackles, no rales, no rhonchi and no wheezes Cardiovascular: Rate/Rhythm: regular rate and regular rhythm Heart Sounds: normal S1 and normal S2 Vessels: dorsalis pedis pulses present; no JVD Extremities: no edema Skin: no rashes, warm and dry Psychiatric: A+Ox3, euthymic affect Results & Data Vital Signs (Past 12 Hours) Vital Signs Temp Pulse Pulse Resp BP Pulse Ox O2 Del Method 11/08/23 03:00 36.6 C 70 16 99/60 L 94 Room Air 11/07/23 23:00 36.7 C 71 18 93/66 L 91 Room Air 11/07/23 22:33 66 Laboratory Results CBC 11/08/23 Range/Units 04:22 WBC 10.90 H (4.8-10.8) K/ul RBC 5.73 (4.70-6.10) M/uL Hgb 16.7 (14.0-18.0) g/dl Hct 49.3 (42.0-52.0) % Plt Count 328 (130-400) K/uL Neut # (Auto) 7.59 H (1.40-6.50) K/uL Lymph # (Auto) 1.97 (1.20-3.40) K/uL [place] # (Auto) 1.01 H (0.11-0.59) K/uL Eos # (Auto) 0.13 (0.00-0.50) K/uL Baso # (Auto) 0.06 (0.00-0.20) K/uL Comprehensive Metabolic Panel 11/08/23 Range/Units 04:22 Sodium 134 L (136-145) mmol/L Potassium 4.2 (3.5-5.1) mmol/L Chloride 103 (98-107) mmol/L Carbon Dioxide 20 L (21-32) mmol/L BUN 24 H (6-23) mg/dl Creatinine 1.09 (0.6-1.4) mg/dl Glucose 115 H (70-99(Fasting)) mg/dl Calcium 9.1 (8.6-10.3) mg/dl Intake and Output 11/08/23 11/08/23 11/08/23 06:59 14:59 22:59 Intake Total 393.442 / 1693.442 35.07 / 35.07 Output Total 650 / 3401 800 / 800 Balance -256.558 / -1707.558 -764.93 / -764.93 Intake: IV 193.442 / 393.442 35.07 / 35.07 Amiodarone / D5w 360 mg In 200 193.442 / 393.442 35.07 / 35.07 ml @ 0.5 MG/MIN 16.667 mls/hr IV .Q12H [facility] Rx#:[id number] Oral 200 / 1300 Output: Urine 650 / 3400 800 / 800 Other: Weight 105.2 kg Weight Measurement Method Standing Scale
--- NOTE | 2023-11-08 14:06 | Hospitalist Progress Note ---
Date of Service November 08, 2023 Assessment & Plan (1) Acute on chronic combined systolic and diastolic CHF (congestive heart failure): Plan: 48 y/o with history of viral cardiomyopathy admitted with acute on chronic systolic and diastolic heart failure and atrial fibrillation with rapid ventricular rate -11/03 TTE with EF 15-20%, mod-severe MR, mod TR, mild pulmonary hypertension -improved on IV diuretics - continue same lasix 40 IV bid, spironolactone, increased potassium replacement. continue diuretics IV today pending further input from cardiology -on empaglifozin -monitor I/o, weight, AM BMP and mag -11/07 BMP reviewed electrolytes and BUN/creatinine stable -[facility] cardiology consulting -ADRIANO stopped and entresto started 11/05, BP around 100/60 (2) Atrial fibrillation with RVR: Plan: -2 doses of 5 mg IV metoprolol in the ED, rate improved Seems to tolerate atrial fibrillation poorly with respect to his heart failure -continue metoprolol and digoxin -On oral amiodarone as outpatient, IV amiodarone this admission -successful cardioversion 11/05 but went back into atrial fibrillation a.m. of 11/07 -continue IV amiodarone pending cardiology recs -continue xarelto -EP referral planned by cardiology to consider ablation (3) Type 2 diabetes mellitus: Plan: -Hold metformin -Monitor BSG ACHS, goal is 110-160 -Aspart Premeal CF of 40 and CR of 15 -5 units lantus BID -Can continue Jardiance as he is also on this for Heart Failure -Adjust regimen as needed -at goal 11/07 Plan AICD 2007 Mildly elevated troponin 28-->27 related to demand ischemia from CHF exacerbation and no evidence of ACS Mildly elevated AST, ALT - improved, mildly elevated bilirubin -this is caused by congestion from decompensated heart failure and TR and should improve with medical treatment of HF -LFT and bili normal 11/05, 11/06 Leukocytosis - neutrophils and monocytes elevated. also elevated 10/28/23. no other labs this year. appears like leukemoid reaction but no obvious culprits. peripheral blood smear / path consult -pending Hypertension - meds as above NEAL on CPAP - ordered Psoriasis, gout DVT ppx - on DOAC Admission and Anticipated Discharge Date Admission Date: November 04, 2023 Subjective Seen early he is feeling fine this morning. On telemetry he has gone back into atrial fibrillation this morning. He is not experiencing symptoms from that. No shortness of breath currently and no edema Physical Exam 2 Physical Exam: PHYSICAL EXAMINATION Last 24h vital signs reviewed, see documentation in flowsheet General: comfortable appearing, no distress, sitting up in bed HEENT: Normocephalic, atraumatic, pupils round and equal, sclerae anicteric, no conjunctival injection, moist mucus membranes Lungs: Normal respiratory effort. Both lung white are clear today anteriorly and posteriorly no crackles and no wheezing Heart: reg rate and rhythm, distant. no JVD Abdomen: Soft, nontender, nondistended. Abdomen much more flat Bowel sounds present. Extremities: Warm, dry, well-perfused. No extremity edema. Neuro: Alert and oriented x 4, face symmetric, moves 4 extremities well Psych: Normal affect and behavior Results & Data Results & Data Vital Signs (Past 12 Hours) Vital Signs Temp Pulse Pulse Resp BP Pulse Ox O2 Del Method 11/08/23 12:37 85 11/08/23 10:34 36.3 C L 66 18 101/60 95 Room Air 11/08/23 09:02 112 H 11/08/23 07:40 36.7 C 74 18 106/73 94 Room Air 11/08/23 07:10 73 11/08/23 03:00 36.6 C 70 16 99/60 L 94 Room Air Laboratory Results 11/08/23 04:22 11/08/23 04:22 PG Care Time/CCT Total # of Minutes Spent Total Time Spent with Patient: Total time spent is greater than 50% in coordination of care (as documented) at patient's floor/unit and/or counseling patient: Coding Level of Care Code 58019 SUB INP/OBS CARE 2/35MIN Diagnoses Acute on chronic combined systolic and diastolic CHF (congestive heart failure) I50.43 Atrial fibrillation with RVR I48.91 Type 2 diabetes mellitus without complication, without long-term current use of insulin E11.9 Diabetes mellitus senior care insulin use: without senior care use Diabetes mellitus complication status: without complication (3) Type 2 diabetes mellitus Diabetes mellitus terminal make up operator insulin use: without terminal make up operator use Diabetes mellitus complication status: without complication Qualified Code(s): E11.9 - Type 2 diabetes mellitus without complications
--- NOTE | 2023-11-08 18:43 | Electrocardiogram Report ---
Test Reason : Blood Pressure : / mmHG Vent. Rate : 104 BPM Atrial Rate : 000 BPM P-R Int : 000 ms QRS Dur : 122 ms QT Int : 326 ms P-R-T Axes : 000 -35 092 degrees QTc Int : 428 ms Atrial fibrillation with rapid ventricular response Left axis deviation Non-specific intra-ventricular conduction delay Minimal voltage criteria for LVH, may be normal variant ( Maxwell product ) Nonspecific ST and T wave abnormality Abnormal ECG When compared with ECG of 28-OCT-2021 16:54, Atrial fibrillation has replaced Sinus rhythm QRS axis Shifted left ST no longer depressed in Inferior leads Confirmed by Amadeo Urrutia ([id number]) on 11/08/2023 6:43:29 PM Referred By: Samanta Jung Confirmed By:Amadeo Urrutia
[2023-11-09 07:09] LABS: BUN Creatinine Ratio 24.1 (10-20); Est GFR (African American) 88.9 ml/min; Est GFR (Non-African American) 76.7 ml/min; Potassium 4.3 mmol/L (3.5-5.1)
--- NOTE | 2023-11-09 08:07 | Hospitalist Progress Note ---
Date of Service November 09, 2023 Assessment & Plan (1) Acute on chronic combined systolic and diastolic CHF (congestive heart failure): Plan: 48 y/o with history of viral cardiomyopathy admitted with acute on chronic systolic and diastolic heart failure and atrial fibrillation with rapid ventricular rate -11/03 TTE with EF 15-20%, mod-severe MR, mod TR, mild pulmonary hypertension -improved on IV diuretics - treated with lasix 40 IV bid, spironolactone, increased potassium replacement. Weight 113 --> 105 kg this admission -changed to po lasix at home dose 11/08. appears euvolemic and BUN/Cr inflected upward -on empaglifozin -ADRIANO stopped and entresto started 11/05, BP around 100/70 this am, lowest MAP 63 -[facility] cardiology consulting (2) Atrial fibrillation with RVR: Plan: -2 doses of 5 mg IV metoprolol in the ED, rate improved Seems to tolerate atrial fibrillation poorly with respect to his heart failure -continue metoprolol and digoxin -On oral amiodarone as outpatient, IV amiodarone this admission -successful cardioversion 11/05 but went back into atrial fibrillation a.m. of 11/07 -continue IV amiodarone, planned for another cardioversion AM 11/08, made npo after mn -continue xarelto -EP referral planned by cardiology to consider ablation (3) Type 2 diabetes mellitus: Plan: -Hold metformin -Monitor BSG ACHS, goal is 110-160 -Aspart Premeal CF of 40 and CR of 15 -5 units lantus BID -Can continue Jardiance as he is also on this for Heart Failure -Adjust regimen as needed -at goal 11/08 Plan AICD 2007 Mildly elevated troponin 28-->27 related to demand ischemia from CHF exacerbation and no evidence of ACS Mildly elevated AST, ALT - improved, mildly elevated bilirubin -this is caused by congestion from decompensated heart failure and TR and should improve with medical treatment of HF -LFT and bili normal 11/05, 11/06 Leukocytosis - neutrophils and monocytes elevated. also elevated 10/28/23. no other labs this year. appears like leukemoid reaction but no obvious culprits. peripheral blood smear / path consult - non-specific neutrophilia. no overt changes of a neoplastic disorder. Outpatient CBC at interval, further evaluation if remaining chronically elevated Hypertension - meds as above NEAL on CPAP - ordered Psoriasis, gout DVT ppx - on DOAC Admission and Anticipated Discharge Date Admission Date: November 04, 2023 Subjective remains in afib Physical Exam 2 Physical Exam: PHYSICAL EXAMINATION Last 24h vital signs reviewed, see documentation in flowsheet General: comfortable appearing, no distress, sitting up in bed HEENT: Normocephalic, atraumatic, pupils round and equal, sclerae anicteric, no conjunctival injection, moist mucus membranes Lungs: Normal respiratory effort. CTAB Heart: reg rate and rhythm, distant. no JVD Abdomen: Abdomen much more flat Extremities: Warm, dry, well-perfused. No extremity edema. Neuro: Alert and oriented x 4, face symmetric, moves 4 extremities well Psych: Normal affect and behavior Results & Data Results & Data Vital Signs (Past 12 Hours) Vital Signs Temp Pulse Pulse Resp BP Pulse Ox O2 Del Method 11/09/23 07:55 36.5 C 65 18 106/73 97 Room Air 11/09/23 07:31 80 11/09/23 04:10 36.4 C L 56 L 17 103/73 96 Room Air 11/08/23 23:11 86 11/08/23 23:00 36.7 C 57 L 16 98/46 L 91 Room Air 11/08/23 20:05 36.6 C 48 L 16 91/65 L 93 Room Air Laboratory Results 11/08/23 04:22 11/09/23 06:15 PG Care Time/CCT Total # of Minutes Spent Total Time Spent with Patient: Total time spent is greater than 50% in coordination of care (as documented) at patient's floor/unit and/or counseling patient: Coding Level of Care Code 90009 SUB INP/OBS CARE 2/35MIN Diagnoses Acute on chronic combined systolic and diastolic CHF (congestive heart failure) I50.43 Atrial fibrillation with RVR I48.91 Type 2 diabetes mellitus without complication, without long-term current use of insulin E11.9 Diabetes mellitus complication status: without complication Diabetes mellitus intermediate school teacher insulin use: without intermediate school teacher use (3) Type 2 diabetes mellitus Diabetes mellitus complication status: without complication Diabetes mellitus intermediate school teacher insulin use: without intermediate school teacher use Qualified Code(s): E11.9 - Type 2 diabetes mellitus without complications
[2023-11-09] MEDS: FUROSEMIDE 40 MG/4 ML VIAL IV SCH (08:47)
--- NOTE | 2023-11-09 12:27 | Cardiology Progress Note ---
Date of Service November 09, 2023 Assessment & Plan (1) Acute on chronic heart failure with reduced ejection fraction and diastolic dysfunction: (2) Atrial fibrillation with controlled ventricular rate: (3) Dilated cardiomyopathy: Plan 48 year old male admitted with acute decompensated HFrEF, and recurrent atrial fibrillation; known severely dilated cardiomyopathy with LVEF 15% - I/O's negative 13 L overall. Volume status appears normovolemic. - Status post 11/06/2023 direct current cardioversion, lapsing back into atrial fibrillation with a rapid ventricular response on 11/08/2023 at 07:49 Recommendations: - Discontinue IV furosemide after AM dose today. - NPO for possible direct current cardioversion Admission and Anticipated Discharge Date Admission Date: November 04, 2023 Supervising Physician Co-Signing Physician Notes I have reviewed the advance practitioner's documentation, and I agree with, and take responsibility for the plan of care. I have personally performed a history and physical examination on the patient. Patient personally examined. Remains in atrial fibrillation with variable heart rate response Has responded to IV diuretics with brisk volume loss Currently more comfortable Plan attempt at return to sinus rhythm via cardioversion in a.m. following diuresis and amiodarone reload N.p.o. after midnight If unsuccessful consider referral for pulmonary vein isolation ablation Advanced heart failure assess Subjective Patient seen and examined. Chart, medications, and telemetry reviewed. I/O's - 13 L this admission. Feeling OK. No palpitations. No chest pain. Breathing OK, without orthopnea or PND Telemetry: Reverted to atrial fibrillation with a rapid ventricular response on 11/08/2023 at 07:49 Am, currently with ventricular rates in the 100's to 110 bpm. Review of Systems Review of Systems: Complete Review of Systems is as stated above, negative, or noncontributory. Physical Exam Physical Exam: General: A&Ox3. NAD. Skin: Psoriatic plaques. HENT: Normocephalic. Atraumatic. Eyes: PER. Conjunctiva pink, sclera clear. Neck: No JVD. Heart: Irregularly irregular at 100 bpm. Soft apical systolic murmur. Lungs: Clear to auscultation. Abdomen: +BS. Soft. Nontender. No masses or organomegaly. Extremities: Trivial edema. No clubbing. No cyanosis Limited neurological examination is without focal deficits. Pulses: radial=2/4, posterior tibial=2/4. Results & Data Vital Signs (Past 12 Hours) Vital Signs Temp Pulse Pulse Resp BP Pulse Ox O2 Del Method 11/09/23 11:07 36.6 C 64 18 100/60 94 Room Air 11/09/23 08:46 89 11/09/23 07:55 36.5 C 65 18 106/73 97 Room Air 11/09/23 07:31 80 11/09/23 04:10 36.4 C L 56 L 17 103/73 96 Room Air Laboratory Results Comprehensive Metabolic Panel 11/09/23 Range/Units 06:15 Sodium 134 L (136-145) mmol/L Potassium 4.3 (3.5-5.1) mmol/L Chloride 105 (98-107) mmol/L Carbon Dioxide 20 L (21-32) mmol/L BUN 27 H (6-23) mg/dl Creatinine 1.12 (0.6-1.4) mg/dl Glucose 123 H (70-99(Fasting)) mg/dl Calcium 9.0 (8.6-10.3) mg/dl Intake and Output 11/08/23 11/09/23 11/09/23 22:59 06:59 14:59 Intake Total 200.278 / 400.000 164.652 / 400.000 Output Total 900 / 2175 475 / 2175 Balance -699.722 / -1775.000 -310.348 / -1775.000 Intake: IV 200.278 / 400.000 164.652 / 400.000 Amiodarone / D5w 360 mg In 200 200.278 / 400.000 164.652 / 400.000 ml @ 0.5 MG/MIN 16.667 mls/hr IV .Q12H [facility] Rx#:[id number] Output: Urine 900 / 2175 475 / 2175 Other: # Unmeasured Voids 2 Weight 104.9 kg Weight Measurement Method Standing Scale Patient Weight 11/10/23 06:59 Weight 104.9 kg
--- NOTE | 2023-11-09 17:22 | Anesthesiology Consultation ---
Date of Service November 09, 2023 Assessment & Plan (1) Encounter for pre-operative examination: Chart Review Chart Review: Acceptable Risk for Surgery previous cardioversion on 11/05 History Surgery Operation Date: 11/06/23 07:15 Proposed Procedures p Cardioversion w/Anesthesia Sedation - Bijan Pryor DO Operation Date: 11/06/23 07:15 Proposed Procedures p Cardioversion - Bijan Pryor, Operation Date: 11/10/23 07:30 Proposed Procedures p Cardioversion Traveling Operator w/Anesthesia - Patricio Johnson MD Height/Weight Height: 6 ft Weight: 104.9 kg Allergies Allergy/AdvReac Type Severity Reaction Status Date / Time Penicillins Allergy Unknown Unknown Verified 11/04/23 08:32 Medications Home Medications Medication Instructions Recorded Confirmed Last Taken amiodarone 200 mg tablet 200 mg PO DAILY 07/22/18 11/04/23 11/04/23 digoxin 125 mcg (0.125 mg) tablet 125 mcg PO DAILY 07/22/18 11/04/23 11/04/23 furosemide 40 mg tablet 40 mg PO BID 07/22/18 11/04/23 11/04/23 lisinopril 5 mg tablet 5 mg PO DAILY 07/22/18 11/04/23 11/04/23 magnesium oxide 400 mg PO DAILY 07/22/18 11/04/23 11/04/23 metoprolol succinate 25 mg 25 mg PO BID 07/22/18 11/04/23 11/04/23 tablet,extended release 24 hr rivaroxaban 20 mg tablet 20 mg PO DAILY 07/22/18 11/04/23 11/04/23 spironolactone 25 mg tablet 25 mg PO DAILY 07/22/18 11/04/23 11/04/23 lancets 33 gauge (DebtLESS CommunityTouch Anthony #100 ea 02/05/21 06/24/23 Unknown Lancets) allopurinol 300 mg tablet 300 mg PO DAILY 10/28/21 11/04/23 11/04/23 cyanocobalamin (vitamin B-12) 1,000 mcg PO DAILY 10/28/21 11/04/23 11/04/23 1,000 mcg tablet (Vitamin B-12) ustekinumab 90 mg/mL subcutaneous 90 mg subcut UD 10/28/21 11/04/23 Unknown syringe (aMriza) blood sugar diagnostic (OneTouch #100 ea 02/07/22 06/24/23 Unknown Verio test strips) cholecalciferol (vitamin D3) 25 5,000 unit PO DAILY 02/07/22 11/04/23 11/04/23 mcg (1,000 unit) tablet (Vitamin D3) potassium chloride 10 mEq 10 meq PO BID 04/21/22 11/04/23 11/04/23 tablet,extended release(part/cryst) empagliflozin 25 mg tablet 25 mg PO DAILY #90 tabs 06/01/23 11/04/23 11/04/23 (Jardiance) metformin 500 mg tablet 1,000 mg (2 x 500 mg) PO BID 90 06/24/23 11/04/23 11/04/23 days #360 tabs rosuvastatin 10 mg tablet 10 mg PO DAILY #90 tabs 06/24/23 11/04/23 11/04/23 Active Medications Generic Name Dose Route Start Last Admin Trade Name Freq PRN Reason Stop Dose Admin Allopurinol 300 mg 11/05/23 09:00 11/09/23 08:46 Allopurinol 300 Mg Tab PO 12/05/23 08:59 300 mg DAILY TERENCE Administration Amiodarone HCl 200 mg 11/05/23 09:00 11/05/23 08:45 Amiodarone 200 Mg Tab PO 12/05/23 08:59 200 mg DAILY TERENCE Administration Digoxin 0.125 mg 11/05/23 09:00 11/09/23 08:46 Digoxin 0.125 Mg Tab PO 12/05/23 08:59 0.125 mg DAILY TERENCE Administration Empagliflozin 25 mg 11/05/23 09:00 11/09/23 08:46 Empagliflozin 25 Mg Tab PO 12/05/23 08:59 25 mg DAILY TERENCE Administration Amiodarone HCl/Dextrose 360 mg in 200 mls @ 16.667 mls/hr 11/05/23 17:15 11/09/23 05:17 Nexterone / D5w IV 12/05/23 17:14 0.5 mg/min .Q12H TERENCE 16.7 mls/hr Administration 0.5 MG/MIN Insulin Aspart 0 units 11/04/23 11:30 11/09/23 12:41 Insulin Aspart Per Unit Charge SC 12/04/23 11:29 4 units ACHS TERENCE Administration Insulin Glargine 5 units 11/04/23 21:00 11/09/23 08:51 Lantus Per Unit Charge SQ 12/04/23 20:59 5 units BID TERENCE Administration Metoprolol Succinate 25 mg 11/04/23 21:00 11/09/23 08:46 Metoprolol Succ 25mg Ext Rel Tab PO 12/04/23 20:59 25 mg BID TERENCE Administration Potassium Chloride 40 meq 11/06/23 09:00 11/09/23 08:45 Potassium Chloride Crtab 20 Meq Tabcr PO 12/06/23 08:59 40 meq BID TERENCE Administration Rivaroxaban 20 mg 11/05/23 16:30 11/08/23 17:13 Rivaroxaban 20 Mg Tab PO 12/05/23 16:29 20 mg QDD TERENCE Administration Rosuvastatin Calcium 10 mg 11/05/23 09:00 11/09/23 08:46 Rosuvastatin Calcium 10 Mg Tab PO 12/05/23 08:59 10 mg DAILY TERENCE Administration Sacubitril/Valsartan 1 tab 11/06/23 09:00 11/09/23 08:45 Valsartan/Sacubitril 26/24mg Tab PO 12/06/23 08:59 1 tab BID TERENCE Administration Spironolactone 25 mg 11/05/23 09:00 11/09/23 08:45 Spironolactone 25 Mg Tab PO 12/05/23 08:59 25 mg DAILY TERENCE Administration NPO Date Last Intake of Fluids: 11/05/23 Time Last Intake of Fluids: 23:59 Date Last Intake of Solids: 11/05/23 Time Last Intake of Solids: 23:59 Past Medical History Medical History (Updated 11/09/23 @ 17:24 by Rizwan Le MD) History of cardioversion Vitamin D deficiency Hyperlipidemia Gout Dilated cardiomyopathy Controlled type 2 diabetes mellitus Congestive heart failure LV EF 15-20% on 11/04/23 echo Atrial fibrillation Stress fracture of foot Sinusitis Secondary hyperparathyroidism Psoriatic arthritis Obstructive sleep apnea Obesity (BMI 30.0-34.9) Mineral deficiency Long-term use of immunosuppressant medication Hypertension History of osteoporotic pathological fracture Cardiac arrhythmia Allergic rhinitis Psoriasis Cardiomegaly Past Family History Family History Other No significant family history Denies family history of Ovarian cancer Prostate cancer Myocardial infarction Breast cancer Colorectal cancer Past Surgical History Surgical History History of implantable cardiac defibrillator (ICD) S/P knee surgery Social History Smoking Status: Never smoker Do You Dip or Chew Tobacco: No Hx Alcohol Use: Yes alcohol intake frequency: holidays/special occasions only Hx Substance Use: No Physical Exam Vital Signs Last Vital Signs Temp 36.5 C 11/09/23 15:38 Pulse 57 L 11/09/23 15:38 Resp 18 11/09/23 15:38 BP 108/60 11/09/23 15:38 Pulse Ox 95 11/09/23 15:38 O2 Del Method Room Air 11/09/23 15:38 O2 Flow Rate 0 11/04/23 07:57 Testing Laboratory Results 11/08/23 04:22 11/09/23 06:15 PT 10.9 Seconds (9.0-12.0) 11/05/23 06:01 INR 1.0 (0.9-1.1) 11/05/23 06:01 11/09/23 11/09/23 11:51 07:55 POC Glucose 133 H 131 H Echocardiogram Date: 11/04/23 EF: 15-20% Valvular Disease: + MR (mod to sev) mod TR
[2023-11-10 06:39] LABS: BUN Creatinine Ratio 23.9 (10-20); Calcium 8.9 mg/dl (8.6-10.3); Creatinine Clr Calc Pharmacy 95.6 ml/min; Est GFR (African American) 84.3 ml/min; Est GFR (Non-African American) 72.8 ml/min; Potassium 4.2 mmol/L (3.5-5.1)
--- NOTE | 2023-11-10 07:02 | Anesthesiology Consultation ---
Date of Service November 10, 2023 Assessment & Plan Chart Review Chart Review: order entry representative initiated History Surgery Operation Date: 11/06/23 07:15 Proposed Procedures p Cardioversion w/Anesthesia Sedation - Bijan Pryor DO Operation Date: 11/06/23 07:15 Proposed Procedures p Cardioversion - Bijan Pryor DO Operation Date: 11/10/23 07:30 Proposed Procedures p Cardioversion Social Insurance Administrator w/Anesthesia - Patricio Johnson MD Height/Weight Height: 6 ft Weight: 104.9 kg Allergies Allergy/AdvReac Type Severity Reaction Status Date / Time Penicillins Allergy Unknown Unknown Verified 11/04/23 08:32 Medications Home Medications Medication Instructions Recorded Confirmed Last Taken amiodarone 200 mg tablet 200 mg PO DAILY 07/22/18 11/04/23 11/04/23 digoxin 125 mcg (0.125 mg) tablet 125 mcg PO DAILY 07/22/18 11/04/23 11/04/23 furosemide 40 mg tablet 40 mg PO BID 07/22/18 11/04/23 11/04/23 lisinopril 5 mg tablet 5 mg PO DAILY 07/22/18 11/04/23 11/04/23 magnesium oxide 400 mg PO DAILY 07/22/18 11/04/23 11/04/23 metoprolol succinate 25 mg 25 mg PO BID 07/22/18 11/04/23 11/04/23 tablet,extended release 24 hr rivaroxaban 20 mg tablet 20 mg PO DAILY 07/22/18 11/04/23 11/04/23 spironolactone 25 mg tablet 25 mg PO DAILY 07/22/18 11/04/23 11/04/23 lancets 33 gauge ([employer] #100 ea 02/05/21 06/24/23 Unknown Lancets) allopurinol 300 mg tablet 300 mg PO DAILY 10/28/21 11/04/23 11/04/23 cyanocobalamin (vitamin B-12) 1,000 mcg PO DAILY 10/28/21 11/04/23 11/04/23 1,000 mcg tablet (Vitamin B-12) ustekinumab 90 mg/mL subcutaneous 90 mg subcut UD 10/28/21 11/04/23 Unknown syringe (Stelara) blood sugar diagnostic ([employer] #100 ea 02/07/22 06/24/23 Unknown Verio test strips) cholecalciferol (vitamin D3) 25 5,000 unit PO DAILY 02/07/22 11/04/23 11/04/23 mcg (1,000 unit) tablet (Vitamin D3) potassium chloride 10 mEq 10 meq PO BID 04/21/22 11/04/23 11/04/23 tablet,extended release(part/cryst) empagliflozin 25 mg tablet 25 mg PO DAILY #90 tabs 06/01/23 11/04/23 11/04/23 (Jardiance) metformin 500 mg tablet 1,000 mg (2 x 500 mg) PO BID 90 06/24/23 11/04/23 11/04/23 days #360 tabs rosuvastatin 10 mg tablet 10 mg PO DAILY #90 tabs 06/24/23 11/04/23 11/04/23 Active Medications Generic Name Dose Route Start Last Admin Trade Name Freq PRN Reason Stop Dose Admin Allopurinol 300 mg 11/05/23 09:00 11/09/23 08:46 Allopurinol 300 Mg Tab PO 12/05/23 08:59 300 mg DAILY TERENCE Administration Amiodarone HCl 200 mg 11/05/23 09:00 11/05/23 08:45 Amiodarone 200 Mg Tab PO 12/05/23 08:59 200 mg DAILY TERENCE Administration Digoxin 0.125 mg 11/05/23 09:00 11/09/23 08:46 Digoxin 0.125 Mg Tab PO 12/05/23 08:59 0.125 mg DAILY TERENCE Administration Empagliflozin 25 mg 11/05/23 09:00 11/09/23 08:46 Empagliflozin 25 Mg Tab PO 12/05/23 08:59 25 mg DAILY TERENCE Administration Amiodarone HCl/Dextrose 360 mg in 200 mls @ 16.667 mls/hr 11/05/23 17:15 11/10/23 05:43 Nexterone / D5w IV 12/05/23 17:14 0.5 mg/min .Q12H TERENCE 16.7 mls/hr Administration 0.5 MG/MIN Insulin Aspart 0 units 11/04/23 11:30 11/09/23 21:24 Insulin Aspart Per Unit Charge SC 12/04/23 11:29 1 units ACHS TERENCE Administration Insulin Glargine 5 units 11/04/23 21:00 11/09/23 21:24 Lantus Per Unit Charge SQ 12/04/23 20:59 5 units BID TERENCE Administration Metoprolol Succinate 25 mg 11/04/23 21:00 11/09/23 21:31 Metoprolol Succ 25mg Ext Rel Tab PO 12/04/23 20:59 Not Given BID TERENCE Potassium Chloride 40 meq 11/06/23 09:00 11/09/23 08:45 Potassium Chloride Crtab 20 Meq Tabcr PO 12/06/23 08:59 40 meq BID TERENCE Administration Rivaroxaban 20 mg 11/05/23 16:30 11/09/23 17:47 Rivaroxaban 20 Mg Tab PO 12/05/23 16:29 20 mg QDD TERENCE Administration Rosuvastatin Calcium 10 mg 11/05/23 09:00 11/09/23 08:46 Rosuvastatin Calcium 10 Mg Tab PO 12/05/23 08:59 10 mg DAILY TERENCE Administration Sacubitril/Valsartan 1 tab 11/06/23 09:00 11/09/23 21:39 Valsartan/Sacubitril 26/24mg Tab PO 12/06/23 08:59 1 tab BID TERENCE Administration Spironolactone 25 mg 11/05/23 09:00 11/09/23 08:45 Spironolactone 25 Mg Tab PO 12/05/23 08:59 25 mg DAILY TERENCE Administration NPO Date Last Intake of Fluids: 11/05/23 Time Last Intake of Fluids: 23:59 Date Last Intake of Solids: 11/05/23 Time Last Intake of Solids: 23:59 Past Medical History Medical History History of cardioversion Vitamin D deficiency Hyperlipidemia Gout Dilated cardiomyopathy Controlled type 2 diabetes mellitus Congestive heart failure LV EF 15-20% on 11/04/23 echo Atrial fibrillation Stress fracture of foot Sinusitis Secondary hyperparathyroidism Psoriatic arthritis Obstructive sleep apnea Obesity (BMI 30.0-34.9) Mineral deficiency Long-term use of immunosuppressant medication Hypertension History of osteoporotic pathological fracture Cardiac arrhythmia Allergic rhinitis Psoriasis Cardiomegaly Past Family History Family History Other No significant family history Denies family history of Ovarian cancer Prostate cancer Myocardial infarction Breast cancer Colorectal cancer Past Surgical History Surgical History History of implantable cardiac defibrillator (ICD) S/P knee surgery Social History Smoking Status: Never smoker Do You Dip or Chew Tobacco: No Hx Alcohol Use: Yes alcohol intake frequency: holidays/special occasions only Hx Substance Use: No Physical Exam Vital Signs Last Vital Signs Temp 98.2 F 11/10/23 03:28 Pulse 44 L 11/10/23 03:28 Resp 18 11/10/23 03:28 BP 92/58 L 11/10/23 03:28 Pulse Ox 95 11/10/23 03:28 O2 Del Method Room Air 11/10/23 03:28 O2 Flow Rate 0 11/04/23 07:57 Testing Laboratory Results 11/08/23 04:22 11/10/23 05:24 PT 10.9 Seconds (9.0-12.0) 11/05/23 06:01 INR 1.0 (0.9-1.1) 11/05/23 06:01 11/10/23 11/09/23 05:38 20:57 POC Glucose 99 112 H Electrocardiogram Sinus rhythm with occasional Premature ventricular complexes, rate 83 bpm Left axis deviation Left ventricular hypertrophy with QRS widening and repolarization abnormality ( R in aVL , Chidi product ) Abnormal ECG When compared with ECG of 04-NOV-2023 07:41, (unconfirmed) Sinus rhythm has replaced Atrial fibrillation ST elevation now present in Inferior leads Confirmed by Amadeo Urrutia ([id number]) on 11/06/2023 12:29:58 PM Echocardiogram Date: 11/04/23 EF: 15-20% Valvular Disease: + MR (mod to sev) mod TR
--- NOTE | 2023-11-10 07:31 | Cardioversion ---
Date of Service November 10, 2023 Electrical Cardioversion Rpt Electrical Cardioversion Report Patient was seen and examined. Procedure explained in detail informed consent obtained. Formal TIMEOUT performed Patient sedated via anesthesia consultation, Dr Hartman with continuous HR, BP, O2 and endtidal CO2 monitoring Single 300J Biphasic synchronized shock administered with successful conversion to sinus rhythm. Patient aroused and tolerated well EKG Sinus Rhythm with 1st degree AV block QTc 473
[2023-11-10] MEDS: LIDOCAINE 2% 2 ML VIAL/AMP(20MG/ML) INFIL ONE (08:14)
[2023-11-10] MEDS: PROPOFOL IV EMULSION 10 MG/ML 20 ML VIAL IV ONE (08:14)
[2023-11-10] MEDS: AMIODARONE 200 MG TAB PO SCH (08:28)
[2023-11-10] MEDS ORDERED: FUROSEMIDE 40 MG TAB PO SCH (09:00)
[2023-11-10] MEDS: FUROSEMIDE 40 MG TAB PO SCH (10:48)
[2023-11-10] MEDS: POTASSIUM CHLORIDE 10 MEQ TABCR PO SCH (10:48)
--- NOTE | 2023-11-10 13:04 | Cardiology Progress Note ---
Date of Service November 10, 2023 Assessment & Plan (1) Acute on chronic heart failure with reduced ejection fraction and diastolic dysfunction: (2) Atrial fibrillation with controlled ventricular rate: (3) Dilated cardiomyopathy: Plan 48 year old male admitted with acute decompensated HFrEF, and recurrent atrial fibrillation; known severely dilated cardiomyopathy with LVEF 15% - I/O's negative 13 L overall. Volume status appears normovolemic. - Status post 11/06/2023 direct current cardioversion, lapsing back into atrial fibrillation with a rapid ventricular response on 11/08/2023 at 07:49 Recommendations: Patient underwent repeat synchronized electrical cardioversion this morning with successful conversion to sinus Will continue amiodarone 200 mg twice per day Maintain telemetry overnight Admission and Anticipated Discharge Date Admission Date: November 04, 2023 Subjective Patient seen and examined both prior to synchronized electrical cardioversion and after. Initially maintaining sinus rhythm Will continue oral amiodarone 200 mg twice per day Volume status appears significantly improved Review of Systems Review of Systems: All systems reviewed & are unremarkable except as noted in Subjective Physical Exam Physical Exam: General: A&Ox3. NAD. Skin: Psoriatic plaques. HENT: Normocephalic. Atraumatic. Eyes: PER. Conjunctiva pink, sclera clear. Neck: No JVD. Heart: Irregularly irregular at 100 bpm. Soft apical systolic murmur. Lungs: Clear to auscultation. Abdomen: +BS. Soft. Nontender. No masses or organomegaly. Extremities: Trivial edema. No clubbing. No cyanosis Limited neurological examination is without focal deficits. Pulses: radial=2/4, posterior tibial=2/4. Constitutional: WD/WN, vitals as above well developed, well nourished and average body habitus; no acute distress and not ill appearing Neck: normal visual inspection and trachea midline Respiratory: normal respiratory effort; no respiratory distress, no labored breathing and no retractions Auscultation: + diminished lung sounds (bilateral bases); no crackles, no rales, no rhonchi and no wheezes Cardiovascular: Rate/Rhythm: regular rate, regular rhythm and + irregularly irregular Heart Sounds: normal S1, normal S2 and + murmur (2/6 holosystolic murmur) Vessels: dorsalis pedis pulses present and radial pulses present; no JVD and no carotid bruit Extremities: no edema Gastrointestinal (Abdomen): normal bowel sounds, soft, nontender, no hepatosplenomegaly Inspection/Auscultation: + abdomen distended; + abnormal bowel sounds Percussion/Palpation: abdomen soft; abdomen nontender, no guarding and abdomen not rigid Skin: no rashes, warm and dry Neurologic: PERRL, EOMI, accommodation nl, no face palsy, no dysarthria CN's II-XI intact bilaterally and moves all extremities; no focal motor deficits Psychiatric: A+Ox3, euthymic affect Results & Data Vital Signs (Past 12 Hours) Vital Signs Temp Pulse Pulse Resp BP BP Pulse Ox 11/10/23 12:18 36.8 C 97 H 24 132/68 92 11/10/23 10:56 67 11/10/23 10:50 36.5 C 70 16 96/64 L 94 11/10/23 10:00 72 16 100/66 96 11/10/23 09:00 74 16 115/79 95 11/10/23 08:45 73 16 101/68 96 11/10/23 08:30 72 16 95/70 L 96 11/10/23 08:29 72 11/10/23 08:15 69 16 100/69 97 11/10/23 08:00 36.3 C L 68 16 105/67 97 11/10/23 07:45 66 18 93/65 L 98 11/10/23 07:27 66 18 89/66 L 98 11/10/23 07:10 80 18 100/55 L 97 11/10/23 07:00 79 11/10/23 03:28 36.8 C 44 L 18 92/58 L 95 O2 Del Method O2 Flow Rate FiO2 11/10/23 12:18 High Flow Nasal Cannula 40 60 11/10/23 10:56 11/10/23 10:50 Room Air 11/10/23 10:00 Room Air 11/10/23 09:00 Room Air 11/10/23 08:45 Room Air 11/10/23 08:30 Room Air 11/10/23 08:29 11/10/23 08:15 Room Air 11/10/23 08:00 Room Air 11/10/23 07:45 Room Air 11/10/23 07:27 Room Air 11/10/23 07:10 Room Air 11/10/23 07:00 11/10/23 03:28 Room Air Laboratory Results Laboratory Results - last 24 hr 11/04/23 11/09/23 11/09/23 11:35 17:18 20:57 Sodium Potassium Chloride Carbon Dioxide Anion Gap BUN Creatinine Est Cr Clr Drug Dosing Est GFR ( Amer) Est GFR (Non-Af Amer) BUN/Creatinine Ratio Glucose POC Glucose 103 H 112 H Calcium Amiodarone 0.5 L Desmethylamiodarone 0.3 L 11/10/23 11/10/23 11/10/23 05:24 05:38 08:13 Sodium 136 Potassium 4.2 Chloride 103 Carbon Dioxide 23 Anion Gap 10 BUN 28 H Creatinine 1.17 Est Cr Clr Drug Dosing 95.6 Est GFR ( Amer) 84.3 Est GFR (Non-Af Amer) 72.8 BUN/Creatinine Ratio 23.9 H Glucose 106 H POC Glucose 99 110 H Calcium 8.9 Amiodarone Desmethylamiodarone 11/10/23 11:36 Sodium Potassium Chloride Carbon Dioxide Anion Gap BUN Creatinine Est Cr Clr Drug Dosing Est GFR ( Amer) Est GFR (Non-Af Amer) BUN/Creatinine Ratio Glucose POC Glucose 125 H Calcium Amiodarone Desmethylamiodarone
--- NOTE | 2023-11-10 20:08 | Hospitalist Progress Note ---
Date of Service November 10, 2023 Assessment & Plan (1) Acute on chronic combined systolic and diastolic CHF (congestive heart nicole sergio): Plan: compensated today 8kg weight loss since admission IV lasix now over to PO lasix 40mg BID cont aldactone cont Entresto cont meto succ 25mg BID cont empaglifozin severe systolic CHF is long-standing and thought 2nd to post-viral induced cardiomyopathy decompensation thought 2nd to recurrent a.fib appreciate [facility] Cardiology assistance (2) Atrial fibrillation with RVR: Plan: Remains on metoprolol and digoxin Was on oral amiodarone as outpatient but converted back to a.fib s/p successful cardioversion 11/05 but went back into atrial fibrillation a.m. of 11/07 has been on IV amiodarone since then and has been transitioned back to amiodarone 200mg BID by mouth s/p another successful cardioversion today - hopefully he will remain in NSR continue xarelto some discussion about EP referral for consideration of ablation given the recurrent nature of his a.fib (3) Type 2 diabetes mellitus: Plan: controlled BSGs Resume metformin at d/c Continue Jardiance as he is also on this for CHF Basal-bolus insulin while hospitalized a1c <7% in 05/2023 Plan AICD 2007; no recent discharges Mildly elevated troponin 28-->27 -- minimal elevation 2nd to demand ischemia from CHF exacerbation Mildly elevated AST, ALT - likely 2nd to passive liver congestion from CHF - resolved Leukocytosis - neutrophils and monocytes elevated. also elevated 10/28/23. no other labs this year. appears like leukemoid reaction but no obvious culprits. peripheral blood smear / path consult - non-specific neutrophilia. no overt changes of a neoplastic disorder. Outpatient CBC at interval, further evaluation if remaining chronically elevated Hypertension - controlled NEAL on CPAP Psoriasis, gout - no issues at this time DVT ppx - on Xarelto daily home tomorrow if he maintains NSR and AM labs are stable Admission and Anticipated Discharge Date Admission Date: November 04, 2023 Subjective had cardioversion this am for his a.fib, performed by Dr Johnson converted to NSR after 1 shock has remained in NSR since the cardioversion this am pt resting comfortably in bed w/o any complaints feels well doing numerous laps in hallway w/o limiting dyspnea he is hoping to go home tomorrow eating well Review of Systems Review of Systems: cv - no chest pain, no orthopnea or PND pulm - no cough, congestion or SWAIN GI - no abd pain, swelling improved Physical Exam Physical Exam: gen - very pleasant, NAD neck - no JVD heart - RRR, s1 s2, 2/6 systolic murmur LLSB lungs - CTA b/l, no wheezes or rales abd - soft NT ND BS+ ext - no edema, pulses 2+ b/l Results & Data Results & Data Vital Signs (Past 12 Hours) Vital Signs Temp Pulse Pulse Resp BP BP Pulse Ox 11/10/23 17:35 75 11/10/23 15:51 36.4 C L 73 17 99/65 L 96 11/10/23 10:56 67 11/10/23 10:50 36.5 C 70 16 96/64 L 94 11/10/23 10:00 72 16 100/66 96 11/10/23 09:00 74 16 115/79 95 11/10/23 08:45 73 16 101/68 96 11/10/23 08:30 72 16 95/70 L 96 11/10/23 08:29 72 11/10/23 08:15 69 16 100/69 97 O2 Del Method 11/10/23 17:35 11/10/23 15:51 Room Air 11/10/23 10:56 11/10/23 10:50 Room Air 11/10/23 10:00 Room Air 11/10/23 09:00 Room Air 11/10/23 08:45 Room Air 11/10/23 08:30 Room Air 11/10/23 08:29 11/10/23 08:15 Room Air Laboratory Results Laboratory Results - last 24 hr 11/09/23 11/10/23 11/10/23 20:57 05:24 05:38 Sodium 136 Potassium 4.2 Chloride 103 Carbon Dioxide 23 Anion Gap 10 BUN 28 H Creatinine 1.17 Est Cr Clr Drug Dosing 95.6 Est GFR ( Amer) 84.3 Est GFR (Non-Af Amer) 72.8 BUN/Creatinine Ratio 23.9 H Glucose 106 H POC Glucose 112 H 99 Calcium 8.9 11/10/23 11/10/23 11/10/23 08:13 11:36 15:56 Sodium Potassium Chloride Carbon Dioxide Anion Gap BUN Creatinine Est Cr Clr Drug Dosing Est GFR ( Amer) Est GFR (Non-Af Amer) BUN/Creatinine Ratio Glucose POC Glucose 110 H 125 H 88 Calcium PG Care Time/CCT Total # of Minutes Spent Total Time Spent with Patient: Total time spent is greater than 50% in coordination of care (as documented) at patient's floor/unit and/or counseling patient: Coding Level of Care Code 47770 SUB INP/OBS CARE 2/35MIN Diagnoses Acute on chronic combined systolic and diastolic CHF (congestive heart failure) I50.43 Atrial fibrillation with RVR I48.91 Type 2 diabetes mellitus without complication, without long-term current use of insulin E11.9 Diabetes mellitus complication status: without complication Diabetes mellitus manager terminal insulin use: without skilled nursing use (3) Type 2 diabetes mellitus Diabetes mellitus complication status: without complication Diabetes mellitus manager terminal insulin use: without skilled nursing use Qualified Code(s): E11.9 - Type 2 diabetes mellitus without complications
--- NOTE | 2023-11-11 04:23 | Electrocardiogram Report ---
Test Reason : Blood Pressure : / mmHG Vent. Rate : 067 BPM Atrial Rate : 067 BPM P-R Int : 222 ms QRS Dur : 128 ms QT Int : 448 ms P-R-T Axes : 025 -39 068 degrees QTc Int : 473 ms Sinus rhythm with 1st degree A-V block Left axis deviation Left ventricular hypertrophy with QRS widening Cannot rule out Septal infarct , age undetermined Abnormal ECG When compared with ECG of 06-NOV-2023 07:41, Premature ventricular complexes are no longer Present Nonspecific T wave abnormality now evident in Inferior leads Nonspecific T wave abnormality, worse in Lateral leads Confirmed by Jared Gama ([id number]) on 11/11/2023 4:22:37 AM Referred By: Samanta Jung Confirmed By:Jared Gama
[2023-11-11 07:50] LABS: Calcium 8.9 mg/dl (8.6-10.3); Potassium 4.4 mmol/L (3.5-5.1)
[2023-11-11 07:56] LABS: BUN Creatinine Ratio 20.4 (10-20); Creatinine Clr Calc Pharmacy 103.3 ml/min; Est GFR (African American) 92.9 ml/min; Est GFR (Non-African American) 80.2 ml/min
[2023-11-11 08:00] LABS: Thyroid Stimulating Hormone 2.673 uIu/ml (0.300-4.500)
--- NOTE | 2023-11-11 12:02 | Discharge Summary ---
Date of Service November 11, 2023 Admission HPI Per Admitting Provider Shahid is a 48 year old male with a PMH significant for idiopathic dilated cardiomyopathy, HFrEF (LVEF of 25-29%), S/P pacer/defibrillator placement in 2007, Paroxysmal and intermittently persistent atrial fibrillation (on Xarelto), dilated aortic root and ascending aorta, NEAL on CPAP, DMII, Psoriasis, and gout who presented to the [facility] ED on 11/04/23 with complaints of cough, SOB, chest pain, and SWAIN. He was noted to be tachycardic with HR in the low 100s on arrival but was otherwise stable. Labs were significant for a leukocytosis of 11 with neutrophil predominance of 8, AST of 40, ALT of 74, initial high sen top of 28. Chest xray was read as 1. Cardiomegaly and AICD with prominence of the pulmonary vasculature. Correlate clinically for evidence of mild fluid overload/congestive change. 2. No airspace consolidation or pleural effusion is identified.. Prior to admission the patient was given 324 mg Aspirin, 40 mg IV Lasix, and 2 doses, 5 mg IV metoprolol. At the time of the exam the patient was sitting in bed in no acute distress with his parents bedside, history was obtained from the patient. Has been experiencing progressive non-productive cough, SOB/SWAIN, and mild left chest tightness over the past 1-2 weeks. 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 While at work this am he noticed that his symptoms were not improving and were actually worse with exertion today. He felt increased fatigue and SOB with his normal work activities. His chest tightness was described as a crescendo-decrescendo with symptoms improving after rest which is why he came to the ED. States that he thought his symptoms over the past 2 weeks were due to allergies as he had increased congestion and post nasal drip. When asked, he is currently asymptomatic. When asked, he states that he had some mild left arm/shoulder discomfort this am but is unsure if this was related to work or his other symptoms. He admits to not being diligent with sticking to his low sodium, fluid restricted diet. He has been taking all medications as prescribed and did take all am meds today. Feels as though his abdomen as been getting more swollen lately, this is where he usually has swelling with CHF exacerbations. Does not monitor his weight regularly. Denies recent fever, chills, hemoptysis, abdominal pain, nausea, vomiting, dysuria, hematuria, melena, diarrhea, LE swelling, and recent trauma. States he feels when his ICD fires, has not felt the ICD discharge recently. Please refer to Dr. Kent's attestation for any changes to the treatment plan Discharge Data Allergies Allergy/AdvReac Type Severity Reaction Status Date / Time Penicillins Allergy Unknown Unknown Verified 11/04/23 08:32 Consultations 11/04/23 10:22 ED Decision to Admit Stat 11/04/23 10:38 Consult Cardiology Routine 11/09/23 17:14 Consult Anesthesiology Routine Procedures Performed Operation Date: 11/10/23 07:30 Actual Procedures p Cardioversion - Patricio Johnson MD Hospital Course (1) Acute on chronic combined systolic and diastolic CHF (congestive heart failure): compensated today 8kg weight loss since admission IV lasix now over to PO lasix 40mg BID cont aldactone cont Entresto cont meto succ 25mg BID cont empaglifozin severe systolic CHF is long-standing and thought 2nd to post-viral induced cardiomyopathy decompensation thought 2nd to recurrent a.fib appreciate [facility] Cardiology assistance (2) Atrial fibrillation with RVR: Remains on metoprolol and digoxin Was on oral amiodarone as outpatient but converted back to a.fib s/p successful cardioversion 11/05 but went back into atrial fibrillation a.m. of 11/07 has been on IV amiodarone since then and has been transitioned back to amiodarone 200mg BID by mouth s/p another successful cardioversion today - hopefully he will remain in NSR continue xarelto some discussion about EP referral for consideration of ablation given the recurrent nature of his a.fib (3) Type 2 diabetes mellitus: controlled BSGs Resume metformin at d/c Continue Jardiance as he is also on this for CHF Basal-bolus insulin while hospitalized a1c <7% in 05/2023 Plan AICD 2007; no recent discharges Mildly elevated troponin 28-->27 -- minimal elevation 2nd to demand ischemia from CHF exacerbation Mildly elevated AST, ALT - likely 2nd to passive liver congestion from CHF - resolved Leukocytosis - neutrophils and monocytes elevated. also elevated 10/28/23. no other labs this year. appears like leukemoid reaction but no obvious culprits. peripheral blood smear / path consult - non-specific neutrophilia. no overt changes of a neoplastic disorder. Outpatient CBC at interval, further evaluation if remaining chronically elevated Hypertension - controlled NEAL on CPAP Psoriasis, gout - no issues at this time DVT ppx - on Xarelto daily home tomorrow if he maintains NSR and AM labs are stable Discharge Plan Discharge Items Patient Disposition: Home - Self-Care Reason For Visit: CHEST PAIN, VOLUME OVERLOAD, ELEVATED TROP Follow-up/Referrals: Samanta Jung MD [Primary Care Provider] - Stand-Alone Forms: My [facility] HeyAnita, Smoking Cessation Medications and DC Order Prescriptions: No Action Jardiance 25 mg tablet 25 mg PO DAILY Qty: 90 1RF Rx Instructions: PER 1ST (DME) OneTouch Verio test strips Strip See Rx Instructions .ROUTE .MEDSUPPLY Qty: 100 3RF Dose Instruction: As directed Rx Instructions: Test blood sugar once daily metformin 500 mg tablet 1,000 mg PO BID 90 Days Qty: 360 1RF rosuvastatin 10 mg tablet 10 mg PO DAILY Qty: 90 3RF (DME) lancets [OneTouch Delica Lancets] 33 gauge misc See Rx Instructions .ROUTE .MEDSUPPLY Qty: 100 Rx Instructions: test blood sugar once daily furosemide 40 mg tablet 40 mg PO BID amiodarone 200 mg tablet 200 mg PO DAILY spironolactone 25 mg tablet 25 mg PO DAILY lisinopril 5 mg tablet 5 mg PO DAILY digoxin [Digox] 125 mcg tablet 125 mcg PO DAILY metoprolol succinate 25 mg tablet extended release 24 hr 25 mg PO BID Xarelto 20 mg tablet 20 mg PO DAILY magnesium oxide 400 mg magnesium Tablet 400 mg PO DAILY potassium chloride 10 mEq tablet,ER particles/crystals 10 meq PO BID cyanocobalamin (vitamin B-12) [Vitamin B-12] 1,000 mcg Tablet 1,000 mcg PO DAILY allopurinol 300 mg tablet 300 mg PO DAILY Stelara 90 mg/mL syringe 90 mg SUBCUT UD Rx Instructions: Every 12 weeks cholecalciferol (vitamin D3) [Vitamin D3] 25 mcg (1,000 unit) tablet 5,000 unit PO DAILY Krames/Other Patient Handouts: Urinary Tract Infections in Men, Diverticulitis Dc Admission Data Admit Date/Time: 11/04/23 10:20 Attending Provider: Bladimir Guidry Admb[place] Provider: Bladimir Kent Primary Care Provider: Samanta Jung Other Providers: Bladimir Kent; Bijan Pryor; Valerie Ayala; Yelena Rock; Leena Feldman; Isabella Jones; Rizwan Le; Hans Foley; Gaston Walton; Nicho Gomez; Marielos Gomez; Terell Fox; Alexandra Burrell; Francois Chacon; Renny Mercado; Zac Sims; Sean Hartman; Ursula Pisano; Kory Chan; Claire Chan; Julio Jacobs; Yoli Tiwari; Doroteo Lowery; Vera Jorge; Poly Ramirez; Mario Hastings; Ambreen Ge; Daksha Martinez; Mirta Pollard; Jackie Gann; Tacho Gann V; Sonido Gupta; Yelena Santos; Omar Powers; Codi Krishnamurthy; Tacho Nelson; Jonnie Neumann; Renard Godinez; Marie Pisano; Zaria Ortega; Tacho Eng; Jonh Palumbo.; Xiomy King; Rylan Rick; Марина Lorenzo; Sena Crowell; Scott Gifford; Hayes Hartman; Janice Philippe; Lilliam Lewis; Adam Ulloa; Enmanuel Guthrie; Rizwan Whitman Jr; Emilee Mirza; Mildred Cabral A.; Nani Arriaga; Mario Zuñiga; Nicho Langston; Diane Casanova SRavinder; Mildred Padilla ARavinder; Jeremy Duckworth; Raf Huitron; Codey Medina; Kaiden Dougherty; Amari Marc; Luis E Gamboa; Aaliyah Sanches; Ladonna Salinas Other Interventions: Discharge Summary Assessment (RN) Last Done: 11/07/23 18:13 Coding Diagnoses Acute on chronic combined systolic and diastolic CHF (congestive heart failure) I50.43 Atrial fibrillation with RVR I48.91 Type 2 diabetes mellitus without complication, without long-term current use of insulin E11.9 Diabetes mellitus manager long term care insulin use: without group home use Diabetes mellitus complication status: without complication
--- NOTE | 2023-11-11 12:56 | Cardiology Progress Note ---
Date of Service November 11, 2023 Assessment & Plan (1) Acute on chronic heart failure with reduced ejection fraction and diastolic dysfunction: (2) Atrial fibrillation with controlled ventricular rate: (3) Dilated cardiomyopathy: Plan 48 year old male admitted with acute decompensated HFrEF, and recurrent atrial fibrillation; known severely dilated cardiomyopathy with LVEF 15% - I/O's negative 13 L overall. Volume status appears normovolemic. - Status post 11/06/2023 direct current cardioversion, lapsing back into atrial fibrillation with a rapid ventricular response on 11/08/2023 at 07:49 Recommendations: Patient underwent repeat synchronized electrical cardioversion 11/11/2023 with successful conversion to sinus now maintained sinus overnight Will continue amiodarone 200 mg twice per day Continue Entresto, increase furosemide, spironolactone CHF instruct Will arrange follow-up with cardiology 1 weeks time Admission and Anticipated Discharge Date Admission Date: November 04, 2023 Subjective Patient seen and examined, chart, medications, telemetry reviewed No arrhythmias on telemetry overnight Feels well this morning Review of Systems Review of Systems: All systems reviewed & are unremarkable except as noted in Subjective Physical Exam Constitutional: WD/WN, vitals as above well developed, well nourished and average body habitus; no acute distress and not ill appearing Neck: normal visual inspection and trachea midline Respiratory: normal respiratory effort; no respiratory distress, no labored breathing and no retractions Auscultation: + diminished lung sounds (bilateral bases); no crackles, no rales, no rhonchi and no wheezes Cardiovascular: Rate/Rhythm: regular rate and regular rhythm Heart Sounds: normal S1, normal S2 and + murmur (2/6 holosystolic murmur) Vessels: dorsalis pedis pulses present and radial pulses present; no JVD and no carotid bruit Extremities: no edema Gastrointestinal (Abdomen): normal bowel sounds, soft, nontender, no hepatosplenomegaly Inspection/Auscultation: + abdomen distended; + abnormal bowel sounds Percussion/Palpation: abdomen soft; abdomen nontender, no guarding and abdomen not rigid Skin: no rashes, warm and dry Superficial erythema at site of cardioversion patch Neurologic: PERRL, EOMI, accommodation nl, no face palsy, no dysarthria CN's II-XI intact bilaterally and moves all extremities; no focal motor deficits Psychiatric: A+Ox3, euthymic affect Results & Data Vital Signs (Past 12 Hours) Vital Signs Temp Pulse Pulse Resp BP Pulse Ox O2 Del Method 11/11/23 08:49 73 11/11/23 08:29 36.7 C 73 18 105/72 93 Room Air 11/11/23 07:41 69 11/11/23 03:26 36.4 C L 70 17 94/65 L 95 Room Air Laboratory Results Laboratory Results - last 24 hr 11/10/23 11/10/23 11/11/23 15:56 20:11 06:58 Sodium 136 Potassium 4.4 Chloride 103 Carbon Dioxide 25 Anion Gap 8 BUN 22 Creatinine 1.08 Est Cr Clr Drug Dosing 103.3 Est GFR ( Amer) 92.9 Est GFR (Non-Af Amer) 80.2 BUN/Creatinine Ratio 20.4 H Glucose 102 H POC Glucose 88 96 Calcium 8.9 TSH 2.673 11/11/23 11/11/23 08:16 12:10 Sodium Potassium Chloride Carbon Dioxide Anion Gap BUN Creatinine Est Cr Clr Drug Dosing Est GFR ( Amer) Est GFR (Non-Af Amer) BUN/Creatinine Ratio Glucose POC Glucose 102 H 101 H Calcium TSH
== END 2023-11-11 13:55 | disposition home or self-care (01) | DRG 308 ==
LOC: ED 07:29 → SUATTDRO 10:20 → 4W 14:42 → SUATTDRO 15:16 → 4W 15:16

== ENCOUNTER 2023-12-06 10:29 | Observation (INO) ==
--- OUTSIDE RECORDS SUMMARY | 2023-12-06 10:35 | External Medical Summary | Summary of Care ---
Author Name Unknown Organization [facility] Address [address] [place] [address] Phone [phone] Care Team Providers Care Advanced Practice Professional Name Role Phone Samanta Jung MD Primary Care Provider [phone] Reason for Visit * Reason Onset Date Comments Order Request 12/03/2023 Encounter Details Date Type Department Care Team (Late st Contact Info) Description 12/03/2023 Telephone Rheumatology [facility] [address] [place] [address] Terell Ward MD [address] [place] [id number] Order Request Allergies Active Allergy Reactions Criticality Noted Date Comments Penicillins 02/24/2007 documented as of this encounter (statuses as of 12/03/2023) Medications Medication Sig Dispensed Refills Start Date End Date Status Cholecalciferol (VITAMIN D3) 3000 UNITS Tablet Take 1 Tablet by mouth in the morning. Active Cyanocobalamin (B-12) 1000 MCG Capsule Take 1 Capsule by mouth in the morning. Active metFORMIN HCl 500 MG Oral Tablet (Glucophage) Take 1 Tablet by mouth 2 times a day with morning and evening meals. 05/07/2021 Active Jardiance 25 MG Oral Tablet 1 daily 10/21/2021 Active Betamethasone Dipropionate 0.05 % External Lotion (Diprosone)Indicati ons:Psoriasis Apply to torso and extremities twice daily as needed for flares 60 mL 3 03/11/2022 Active Hydrocortisone 2.5 % External CreamIndications:Ps oriasis Apply to area behind the ears twice daily as needed for flares 60 g 1 03/11/2022 Active Magnesium Oxide 400 (240 Mg) MG Oral Tablet (Mag-Ox)Indications :Heart failure, systolic, due to idiopathic cardiomyopathy (HCC) TAKE 1 TABLET BY MOUTH ONCE DAILY 90 Tablet 3 08/05/2022 Active Metoprolol Succinate ER 25 MG Oral Tablet Extended Release 24 Hour (toPROL XL)Indications:Hear t failure, systolic, due to idiopathic cardiomyopathy (HCC),Paroxysmal atrial fibrillation (HCC) Take 1 Tablet by mouth in the morning and 1 Tablet before bedtime. 180 Tablet 3 05/14/2023 Active Potassium Chloride Concepción ER 10 MEQ Oral Tablet Extended ReleaseIndications: Idiopathic cardiomegaly,Heart failure, systolic, due to idiopathic cardiomyopathy (HCC) Take 1 Tablet by mouth in the morning and 1 Tablet before bedtime. 180 Tablet 3 05/14/2023 Active Rosuvastatin Calcium 5 MG Oral Tablet (Crestor)Indication s:Mixed hyperlipidemia Take 1 Tablet by mouth in the morning. 90 Tablet 3 05/14/2023 Active Spironolactone 25 MG Oral Tablet (Aldactone)Indicati ons:Idiopathic cardiomyopathy (HCC) Take 1 Tablet by mouth in the morning. 90 Tablet 3 05/14/2023 Active Rivaroxaban 20 MG Oral Tablet (Xarelto)Indication s:Idiopathic cardiomyopathy (HCC),Heart failure, systolic, due to idiopathic cardiomyopathy (HCC) Take 1 Tablet by mouth daily with dinner. 90 Tablet 3 05/14/2023 Active Digoxin 125 MCG Oral Tablet (Lanoxin)Indication s:Atrial fibrillation (HCC) Take 1 Tablet by mouth in the morning. 90 Tablet 3 05/15/2023 Active Stelara 90 MG/ML Subcutaneous Solution Prefilled Syringe (Ustekinumab)Indica tions:Psoriatic arthritis (HCC),Other psoriasis INJECT 90 MG UNDER THE SKIN EVERY 12 WEEKS. 1 mL 1 11/11/2023 Active Amiodarone HCl 200 MG Oral Tablet (Cordarone)Indicati ons:Atrial fibrillation (HCC),Idiopathic cardiomyopathy (HCC) Take 1 Tablet by mouth 2 times a day with morning and evening meals. 11/12/2023 Active Entresto 24-26 MG Oral Tablet (sacubitril-valsart an 24-26 mg per tab) Take 1 Tablet by mouth in the morning and 1 Tablet before bedtime. 11/12/2023 Active Furosemide 40 MG Oral Tablet (Lasix)Indications: Idiopathic cardiomegaly,Heart failure, systolic, due to idiopathic cardiomyopathy (HCC) Take 1 Tablet by mouth in the morning and 1 Tablet before bedtime. Take 1 tablet in the morning and 1 tablet in the afternoon.. 11/12/2023 Active Allopurinol 300 MG Oral Tablet (Zyloprim) Take 1.5 Tablets by mouth daily. 135 Tablet 4 12/03/2023 Active Allopurinol 300 MG Oral Tablet (Zyloprim) Take 1 Tablet by mouth daily. 90 Tablet 4 11/24/2023 Discontinu ed(Refill) documented as of this encounter (statuses as of 12/03/2023) Active Problems Problem Noted Date Diagnosed Date [...] as of this encounter (statuses as of 12/03/2023) Resolved Problems Problem Noted Date Diagnosed Date [...] as of this encounter (statuses as of 12/03/2023) Immunizations Name Administration Dates Next Due COVID-19 [...] Split, I IV3, With Preserve, Inj 05/06/2018,03/22/2009 TDAP, Age 7 and older, IM (Adacel) 03/15/2013 documented as of this encounter Social [...] Care Team (Late st Contact Info) Description 12/14/2023 8:30 AM EDT Office Visit Dermat[facility] [address] [facility] [address] [address] [place] [address] Carl Munson MD [address] [facility] [place] [address] 01/01/2024 9:15 AM EDT Cardiac Studies Cardiac Studies, [facility] [address] [facility] [place] [address] 01/04/2024 8:30 AM EDT Office Visit Cardiology, [facility] [address] [facility] [place] [address] Patricio Johnson MD [address] [facility] [place] [address] 12/05/2024 8:00 AM EDT Office Visit Rheumatology [address] [place] [address] Terell Ward MD [address] [place] [address] [place] [address] Scheduled Orders Name Type Priority Associated Diagnoses Orde r Schedule URIC ACID Lab Routine Idiopathic chronic gout of multiple sites without tophus Expected: 01/03/2024, Expires: 12/02/2024 Health Maintenance Due Date Last Done Comments [...] (2 - Td or Tdap) 03/15/2023 03/15/2013 Influenza Vaccine (FLU shot) (Season Ended) 2024 05/22/2021, 03/16/2020, 03/16/2020, Additional history exists GFR 12/01/2024 12/02/2023, 01/2023, 09/11/2021, Additional history exists Lipid Panel 09/11/2026 09/11/2021, [...] as of this encounter Visit Diagnoses Diagnosis Idiopathic chronic gout of multiple sites without tophus- Primary 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 Question Answer Comments Discussion of Advance Directives occurred with: Patient Does the patient have a Living Will? No Does the patient have Health Care Power of Attor rizwana? No * Full Code Date Activated Date Inactivated Comments 09/26/2016 11:53 AM 09/27/2016 5:27 PM This order reflects the patients wishes and were consensually agreed upon. Question Answer Comments Discussion of Advance Directives occurred with: Patient Does the patient have a Living Will? No Does the patient have Health Care Power of Attor rizwana? No * Full Code Date Activated Date Inactivated Comments 01/20/2008 10:58 AM 01/21/2008 1:40 PM Care Teams Advanced Practice Professional Relationship Specialty [place] [address] [place] [address] [place] [address] PCP - General Family Medicine 01/07/18 documented as of this encounter
--- NOTE | 2023-12-06 11:04 | Emergency Department Note ---
Impression & Plan Syncope and collapse, Cardiomyopathy, Ventricular tachycardia, paroxysmal ED Provider Note Provider: Sean Desouza MD DATE OF SERVICE: 12/06/2023 CHIEF COMPLAINT: Syncope HISTORY OF PRESENT ILLNESS: Patient is a 48-year-old gentleman history of idiopathic dilated cardiomyopathy, CHF status post AICD, paroxysmal A-fib on Xarelto, dilated aortic root, and diabetes presenting here today after a syncopal event. 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 That everything went to "slow motion" and then woke up on the floor. Denies any current pain. States it was a normal day and has not been gaining weight recently. Follow-up cardiology since recent hospitalization and has been in rate controlled A-fib since then. Denies to his knowledge being shocked. States he did fall down towards his front but did not fall very hard and that bystanders reported he did not strike his head. Denies any headache. Denies any chest pain at any time today. Denies shortness of breath. Again denies any swelling issues. Weight has been stable by his report. Denies pain or injury to the extremities. PAST MEDICAL HISTORY: As noted above MEDICATIONS: Reviewed home medications list and states compliant SOCIAL HISTORY: Non-smoker PHYSICAL EXAM: GENERAL: alert and oriented in no acute distress on stretcher Head: normocephalic and atraumatic with a small healing scratch from several days ago on the nose. EYES: No injection, discharge or icterus. EOMI. NECK: Trachea midline. Supple. ENT: Mucous membranes pink and moist. LUNGS: Airway patent. No retractions. Breath sounds clear HEART: Irregular rate and rhythm. No chest wall tenderness with left upper chest pacemaker appreciated subcutaneously ABDOMEN: Soft and non-tender, without guarding or rebound. SKIN: Acyanotic, warm, dry, without rashes EXTREMITIES: Without swelling, tenderness or deformity NEUROLOGICAL: No focal deficits. No aphasia. No facial droop or slurred speech. Ambulatory. EK bpm atrial fibrillation. QTc 497. Intraventricular conduction delay no clear acute ST segment elevation with some lateral T wave changes. Compared to previous from November 09 of this year no longer in sinus rhythm. CONTINUOUS CARDIAC MONITORING: was ordered and showed a heart rate of 70s to 110s bpm in atrial fibrillation GCS 15 Patient's laboratory studies and imaging reviewed. Differential includes Vasovagal event, dehydration, infection, hypoglycemia, electrolyte abnormalities, cardiac sources, intracerebral event, pulmonary embolism, seizure, toxicologic, neurologic, as well as other pathologies. IMPRESSION/MEDICAL DECISION MAKING: Patient well-appearing at this time. In A-fib and has been since recent cardiology follow-up. Denies significant weight gain. Not hypoxic here but denies any significant pain including head pain or chest pain. Doubt aortic dissection at this time. Doubt PE is anticoagulated. Denies any URI symptoms or fever. Denies any injury to the extremity. Patient states bystanders states he did not strike his head. No headache reported no clinical evidence of head trauma newly at this time. Doubt acute or cranial bleed at this time or CVA. Given his extensive cardiac history blood work obtained as well as EKG and pacemaker interrogation. Urinalysis reassuring without findings of infection. Blood counts here without anemia or leukocytosis. Magnesium normal as are electrolytes with potassium 3.6. Troponin normal. Did receive pacemaker interrogation report with 4 episodes of SVT versus VT according to the device access services representative who is sending the full report. The 44-second episode today was concerning for possible VT and the device was charging but the patient broke spontaneously and the charge was not delivered. Patient on reassessment states he feels fine. States again compliance with his digoxin as well as 200 mg twice daily of the amiodarone. Will discuss with [facility] cardiology here. Dr. Kay strongly recommends the patient states for further observation although no acute medication changes at this point. Discussed the patient he was agreeable. Hospitalist contacted DIAGNOSIS: Syncope, cardiomyopathy, episode of presumed VT DISPOSITION: Hospitalist will evaluate Patient was agreeable with this plan. Past Med/Surg History Problem List (Updated 12/06/23 @ 13:13 by Sean Desouza M.D.) Ventricular tachycardia, paroxysmal (Acute) Syncope and collapse (Acute) Leukocytosis Abnormal CBC History of cardioversion History of implantable cardiac defibrillator (ICD) Vitamin D deficiency Hyperlipidemia Gout Dilated cardiomyopathy Controlled type 2 diabetes mellitus Congestive heart failure LV EF 15-20% on 11/04/23 echo Atrial fibrillation Stress fracture of foot Sinusitis Secondary hyperparathyroidism Psoriatic arthritis Obstructive sleep apnea Obesity (BMI 30.0-34.9) Mineral deficiency Long-term use of immunosuppressant medication Hypertension History of osteoporotic pathological fracture Cardiac arrhythmia Allergic rhinitis Acute on chronic combined systolic and diastolic CHF (congestive heart failure) Dilated cardiomyopathy Atrial fibrillation with controlled ventricular rate Acute on chronic heart failure with reduced ejection fraction and diastolic dysfunction Elevated LFTs Elevated troponin Cough Chest tightness SWAIN (dyspnea on exertion) Vitamin D deficiency Obesity Possible exposure to STD Encounter for physical examination related to employment Routine health maintenance (Chronic) HTN (hypertension), benign (Chronic) Hyperlipidemia (Chronic) Gout (Chronic) Type 2 diabetes mellitus (Chronic) CHF (congestive heart failure) (Chronic) Cardiomegaly (Chronic) Psoriasis (Chronic) Sinus tachycardia (Acute) Sinus tachycardia (Acute) Atrial fibrillation Atrial fibrillation with RVR (Acute) Defibrillator discharge (Acute) Rapid atrial fibrillation (Acute) Cardiomyopathy (Acute) Surgical History S/P knee surgery Family History Other No significant family history Denies family history of Ovarian cancer Prostate cancer Myocardial infarction Breast cancer Colorectal cancer Social History Smoking Status: Never smoker Second Hand Exposure: No; Do You Dip or Chew Tobacco: No; Hx Alcohol Use: Yes Hx Substance Use: No Preferred Language: Croatian Communication Ability: Effective 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: No Beliefs That Will Affect Care: None marital status: Single Current Living Situation: Family current occupational status: disabled How many Children do You have: 0 Feels Safe at Home: Yes Childhood Exposure to Second-Hand Smoke: No Diet: regular caffeine: Yes Dental Care, Regularly: Yes Physical Activity Frequency: Daily Seatbelt Use: always Sunscreen Use: No Assistive Devices: CPAP Allergies Allergies Allergy/AdvReac Type Severity Reaction Status Date / Time Penicillins Allergy Unknown Unknown Verified 12/06/23 13:02 Home Meds Home Medications Medication Instructions Recorded Confirmed digoxin 125 mcg (0.125 mg) tablet 125 mcg PO QAM 07/22/18 12/06/23 furosemide 40 mg tablet 40 mg PO BID 07/22/18 12/06/23 rivaroxaban 20 mg tablet 20 mg PO HS 07/22/18 12/06/23 spironolactone 25 mg tablet 25 mg PO QAM 07/22/18 12/06/23 lancets 33 gauge (OneGustavouch Anthony #100 ea 02/05/21 12/03/23 Lancets) allopurinol 300 mg tablet 300 mg PO QAM 10/28/21 12/06/23 cyanocobalamin (vitamin B-12) 1,000 mcg PO QAM 10/28/21 12/06/23 1,000 mcg tablet (Vitamin B-12) ustekinumab 90 mg/mL subcutaneous 90 mg subcut UD 10/28/21 12/06/23 syringe (Stelara) cholecalciferol (vitamin D3) 25 5,000 unit PO QAM 02/07/22 12/06/23 mcg (1,000 unit) tablet (Vitamin D3) potassium chloride 10 mEq 10 meq PO BID 04/21/22 12/06/23 tablet,extended release(part/cryst) empagliflozin 25 mg tablet 25 mg PO QAM 12/06/23 12/06/23 (Jardiance) magnesium oxide 400 mg PO QAM 12/06/23 12/06/23 rosuvastatin 10 mg tablet 10 mg PO HS 12/06/23 12/06/23 Previous Rx's Medication Instructions Recorded blood sugar diagnostic (OneTouch #100 ea 02/07/22 Verio test strips) amiodarone 200 mg tablet 200 mg PO BID #1 tab 11/11/23 sacubitril 24 mg-valsartan 26 mg 1 tab PO BID #60 tabs 11/11/23 tablet (Entresto) metformin 500 mg tablet 1,000 mg (2 x 500 mg) PO BID 90 12/03/23 days #360 tabs metoprolol succinate 25 mg 25 mg PO BID #180 tabs 12/03/23 tablet,extended release 24 hr Results & Data (ED) Vital Signs Vital Signs - 24 hr 12/06/23 10:39 12/06/23 10:40 12/06/23 10:51 Temperature 36.8 C Temperature Source Oral Pulse Rate 100 H 95 H 88 Pulse Rate [Apical] Respiratory Rate 20 21 Respiratory Effort / Characteristics Non-Labored Spontaneous Respiratory Depth Respiratory Pattern Regular Blood Pressure 106/71 Blood Pressure [Left Arm] Blood Pressure Mean 82 Blood Pressure Mean [Left Arm] Blood Pressure Position Semi-fowlers Blood Pressure Position [Left Arm] Pulse Oximetry 94 Oxygen Delivery Method Room Air Room Air Sepsis Recent Fever Within 48 Hours No Sepsis New/Unexplained Change in Mental Status N/A Sepsis Action Taken by Nursing No Action Required 12/06/23 11:50 12/06/23 11:50 12/06/23 11:50 Temperature Temperature Source Pulse Rate 97 H Pulse Rate [Apical] 81 Respiratory Rate 16 21 Respiratory Effort / Characteristics Non-Labored Spontaneous Respiratory Depth Normal Respiratory Pattern Regular Blood Pressure Blood Pressure [Left Arm] 122/106 H Blood Pressure Mean Blood Pressure Mean [Left Arm] 111 Blood Pressure Position Blood Pressure Position [Left Arm] Semi-fowlers Pulse Oximetry 95 94 Oxygen Delivery Method Room Air Room Air Room Air Sepsis Recent Fever Within 48 Hours Sepsis New/Unexplained Change in Mental Status Sepsis Action Taken by Nursing 12/06/23 13:24 Temperature Temperature Source Pulse Rate Pulse Rate [Apical] 75 Respiratory Rate 20 Respiratory Effort / Characteristics Non-Labored Spontaneous Respiratory Depth Normal Respiratory Pattern Regular Blood Pressure Blood Pressure [Left Arm] 93/78 L Blood Pressure Mean Blood Pressure Mean [Left Arm] 83 Blood Pressure Position Blood Pressure Position [Left Arm] Semi-fowlers Pulse Oximetry 97 Oxygen Delivery Method Room Air Sepsis Recent Fever Within 48 Hours Sepsis New/Unexplained Change in Mental Status Sepsis Action Taken by Nursing Laboratory Data 12/06/23 10:38 12/06/23 10:38 Lab Results 12/06/23 Range/Units 10:38 WBC 8.25 (4.8-10.8) K/ul RBC 5.59 (4.70-6.10) M/uL Hgb 15.7 (14.0-18.0) g/dl Hct 47.3 (42.0-52.0) % MCV 84.6 (80.0-100.0) fL MCH 28.1 (25.0-34.0) pg MCHC 33.2 (32.0-36.0) g/dL RDW Std Deviation 42.3 (36.4-46.3) fL RDW Coeff of Ronaldo 13.8 (11.5-14.5) % Plt Count 294 (130-400) K/uL MPV 9.7 (9.4-12.4) fL Immature Gran % (Auto) 0.4 % Neut % (Auto) 75.7 % Lymph % (Auto) 15.9 % [place] % (Auto) 6.5 % Eos % (Auto) 1.0 % Baso % (Auto) 0.5 % Neut # (Auto) 6.25 (1.40-6.50) K/uL Lymph # (Auto) 1.31 (1.20-3.40) K/uL [place] # (Auto) 0.54 (0.11-0.59) K/uL Eos # (Auto) 0.08 (0.00-0.50) K/uL Baso # (Auto) 0.04 (0.00-0.20) K/uL Immature Gran # (Auto) 0.03 (0.01-0.20) K/uL PT 13.7 H (9.0-12.0) Seconds INR 1.3 H (0.9-1.1) Sodium 142 (136-145) mmol/L Potassium 3.6 (3.5-5.1) mmol/L Chloride 108 H (98-107) mmol/L Carbon Dioxide 24 (21-32) mmol/L Anion Gap 10 (3-11) BUN 20 (6-23) mg/dl Creatinine 1.13 (0.6-1.4) mg/dl Est Cr Clr Drug Dosing 99.2 ml/min Est GFR ( Amer) 88.0 ml/min Est GFR (Non-Af Amer) 75.9 ml/min BUN/Creatinine Ratio 17.7 (10-20) Glucose 153 H (70-99(Fasting)) mg/dl Calcium 9.4 (8.6-10.3) mg/dl Magnesium 2.3 (1.7-2.4) mg/dl Total Bilirubin 0.9 (0.2-1.0) mg/dl AST 34 (13-39) U/L ALT 31 (7-52) U/L Alkaline Phosphatase 87 (34-104) U/L Troponin I High Sens 12.8 (0-20) pg/ml Total Protein 8.0 (6.0-8.3) gm/dl Albumin 4.8 (3.4-5.0) gm/dl Globulin 3.2 (2.5-4.0) gm/dl Albumin/Globulin Ratio 1.5 (0.9-2) Urine Color Yellow Urine Appearance Clear (Clear) Urine pH 6.5 (4.5-7.5) Ur Specific [place] 1.013 (1.000-1.030) Urine Protein Negative (Negative) Urine Glucose (UA) 3+ H (Negative) Urine Ketones Negative (Negative) Urine Blood Negative (Negative) Urine Nitrite Negative (Negative) Urine Bilirubin Negative (Negative) Urine Urobilinogen Negative (Negative) Ur Leukocyte Esterase Negative (Negative) Digoxin 0.6 L (0.8-2.0) ng/ml Administered Medications Insulin Aspart (Insulin Aspart Per Unit Charge) 0 units SC ACHS TERENCE Stop: 01/05/24 14:09 Last Admin: 12/06/23 14:57 Dose: 2 units Documented By: PER Co-signed By: REMY Discontinued Medications Potassium Chloride (Potassium Chloride Crtab 20 Meq Tabcr) 40 meq PO NOW STA Stop: 12/06/23 13:34 Last Admin: 12/06/23 14:07 Dose: 40 meq Documented By: PER Imaging Data Radiologist's Impression: Chest X-Ray 12/06/23 10:50 XR chest 1V portable CLINICAL HISTORY: syncope TECHNIQUE: Single frontal radiograph of the chest was obtained. Comparison: Comparison is made to chest radiograph 11/04/2023 FINDINGS: Pacemaker defibrillator is seen. Cardiomegaly is noted. The lungs are clear. No evidence of pleural effusion or pneumothorax. IMPRESSION: No acute chest disease. Cardiomegaly is noted. ACT 112: Negative or not required by law. Electronically signed by: Renard Huddleston M.D. 12/06/2023 12:11 PM Discharge Plan Visit Data Chief Complaint: Syncope Stated Complaint: SYNCOPE ED Provider: Sean Desouza Discharge Problem: Syncope and collapse, Cardiomyopathy, Ventricular tachycardia, paroxysmal Patient Disposition: Being Evaluated by Hospitalist Discharge Instructions Interventions: ED Discharge Assessment Last Done: 12/06/23 14:44
[2023-12-06 11:11] LABS: Appearance Urine Clear (Clear); Basophils # (auto) 0.04 K/uL (0.00-0.20); Basophils % (auto) 0.5 %; Bilirubin Urine Negative (Negative); Blood Urine Negative (Negative); Color Urine Yellow; Eosinophils # (auto) 0.08 K/uL (0.00-0.50); Glucose Urine UA 3+ (Negative); Hematocrit (blood only) 47.3 % (42.0-52.0); Hemoglobin 15.7 g/dl (14.0-18.0); Immature Granulocytes # (auto) 0.03 K/uL (0.01-0.20); Immature Granulocytes % (auto) 0.4 %; Ketones Urine Negative (Negative); Leukocyte Esterase Urine Negative (Negative); Lymphocytes # (auto) 1.31 K/uL (1.20-3.40); Lymphocytes % (auto) 15.9 %; Mean Corpuscular Hemoglobin 28.1 pg (25.0-34.0); Mean Corpuscular Hgb Conc 33.2 g/dL (32.0-36.0); Mean Corpuscular Volume 84.6 fL (80.0-100.0); Mean Platelet Volume 9.7 fL (9.4-12.4); Monocytes # (auto) 0.54 K/uL (0.11-0.59); Monocytes % (auto) 6.5 %; Neutrophils # (auto) 6.25 K/uL (1.40-6.50); Neutrophils % (auto) 75.7 %; Nitrite Urine Negative (Negative); Platelet Count 294 K/uL (130-400); Protein Urine Negative (Negative); RDW Coefficient of Variation 13.8 % (11.5-14.5); RDW Standard Deviation 42.3 fL (36.4-46.3); Red Blood Count 5.59 M/uL (4.70-6.10); Specific Gravity Urine 1.013 (1.000-1.030); Urobilinogen Urine Negative (Negative); White Blood Count 8.25 K/ul (4.8-10.8); pH Urine 6.5 (4.5-7.5)
[2023-12-06 11:28] LABS: Albumin Globulin Ratio 1.5 (0.9-2); Albumin Level 4.8 gm/dl (3.4-5.0); BUN Creatinine Ratio 17.7 (10-20); Bilirubin,Total 0.9 mg/dl (0.2-1.0); Calcium 9.4 mg/dl (8.6-10.3); Creatinine Clr Calc Pharmacy 99.2 ml/min; Est GFR (Non-African American) 75.9 ml/min; Globulin 3.2 gm/dl (2.5-4.0); Magnesium 2.3 mg/dl (1.7-2.4); Potassium 3.6 mmol/L (3.5-5.1)
[2023-12-06 11:35] LABS: Troponin I High Sensitivity 12.8 pg/ml (0-20)
[2023-12-06 11:36] LABS: INR 1.3 (0.9-1.1); Prothrombin Time 13.7 Seconds (9.0-12.0)
--- NOTE | 2023-12-06 12:13 | XRay Report ---
XR chest 1V portable CLINICAL HISTORY: syncope TECHNIQUE: Single frontal radiograph of the chest was obtained. Comparison: Comparison is made to chest radiograph 11/04/2023 FINDINGS: Pacemaker defibrillator is seen. Cardiomegaly is noted. The lungs are clear. No evidence of pleural e ffusion or pneumothorax. IMPRESSION: No acute chest disease. Cardiomegaly is noted. ACT 112: Negative or not required by law. Electronically signed by: Renard Huddleston M.D. 12/06/2023 12:11 PM
--- NOTE | 2023-12-06 13:26 | History & Physical Report ---
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 -[place] as though he was going to pass out prior to syncopal episode -No seizure like activity, was alert and oriented shortly after waking -Will ensure patient's ICD is interrogated -Potassium of 3.6 and mag of 2.3 >Will give 40 mew PO KCL now -Will consult [facility] Cardiology -Will plan to continue all cardiac medications at this time unless requested to hold by Cardiology -Currently euvolemic on exam, will hold IV fluids for now with his EF of 15-20% -Patient denies chest pain, initial high sen trop WNL, will reapeat a 2 hour high sen trop now -Fall precuations -Continue to monitor on tele -Home Xarelto for DVT PPX -HH/DMII diet with 2gm Sodium and 1800 mL fluid restrictions -AM CBC, CMP, mag, PT/INR (2) Dilated cardiomyopathy: Plan: -Currently euvolemic on exam -Will plan to continue entresto, lasix, Jardiance, and spironolactone -Monitor daily mag and potassium level (3) Controlled type 2 diabetes mellitus: Plan: -Monitor BSG ACHS, goal is 110-160 -Start CF 50 and CR 15 ACHS for now -Will hold metformin, continue Jardiance as he is on this for both DMII and CHF -Adjust regimen as needed (4) Atrial fibrillation: Plan: -Currently in rate controlled afib -Will give 40 mew PO KCL now as K+ is currently 3.6 -Continue Xarelto -Continue Amiodarone, dig, metoprolol (5) Obstructive sleep apnea: Plan: -HS CPAP ordered (6) Hypertension: Plan: -Patient normally has low-normal BP's as of the recent past -Currently stable at 93/78 and asymptomatic -Will hold IV fluids for now unless recommended by Cardiology due to LVEF of 15- 20% -Continue all cardiac medications at this time Plan The patient was discussed with Dr. Pena at the time of the admission History of Present Illness Chief Complaint: syncope Primary Care Provider: Samanta Jung MD Shahid is a 48 year old male with a PMH significant for idiopathic dilated cardiomyopathy, HFrEF (LVEF of 15-20%), S/P pacer/defibrillator placement in 2007, Paroxysmal and intermittently persistent atrial fibrillation (on Xarelto), dilated aortic root and ascending aorta, NEAL on CPAP, DMII, Psoriasis, and gout who presented to the 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 He was initially noted to be tachycardic on arrival at 100 BPM but otherwise stable. Labs were significant for a high sen trop WNL, potassium of 3.6, and subtherapeutic Dig level of 0.6 ng/mL. Chest xray was read as negative for acute findings. ECG showed the patient to be back in atrial fibrillation with ST segment depressions in the anterolateral leads. The ED staff spoke with [facility] Cardiology (patient follows them outpatient) who recommended admission for ongoing monitoring. At the time of the exam the patient was sitting in bed in no acute distress. States that he had been in his normal state of health this am after waking. He did not eat breakfast as he was running late for the basketball game. He did have a sports drink on his way. 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 He does not believe that his ICD fired. He had a sudden episode of syncope. Bystanders reported that he did not hit his head. He woke up shortly after and was alert and oriented. He confirms to me that he took all his am medications including amiodarone, dig, 40 mg Lasix, 25 mg Metoprolol, Entresto, and spironolactone. He was admitted to [facility] from 11/04/23-11/11/23 due to recurrent afib RVR and acute heart failure exacerbation. He underwent cardioversion on 11/05 and again on 11/09. He currently feels well since arrival back to the ED. Sates that he and his Plan Checker have been in discussions regarding eventual heart transplant for years, at this time he wants to wait until absolutely necessary. Denies recent fever, chills, chest pain, cough, SOB, abd pain, nausea, vomiting, diarrhea, dysuria, hematuria, melena, LE swelling, and recent trauma. Please refer to Dr. Pena's attestation for any changes to the treatment plan Allergies Allergy/AdvReac Type Severity Reaction Status Date / Time Penicillins Allergy Unknown Unknown Verified 12/06/23 13:02 Home Medications Medication Instructions Recorded Confirmed Type digoxin 125 mcg (0.125 mg) tablet 125 mcg PO QAM 07/22/18 12/06/23 History furosemide 40 mg tablet 40 mg PO BID 07/22/18 12/06/23 History rivaroxaban 20 mg tablet 20 mg PO HS 07/22/18 12/06/23 History spironolactone 25 mg tablet 25 mg PO QAM 07/22/18 12/06/23 History lancets 33 gauge (OneTouch Delica #100 ea 02/05/21 12/03/23 History Lancets) allopurinol 300 mg tablet 300 mg PO QAM 10/28/21 12/06/23 History cyanocobalamin (vitamin B-12) 1,000 mcg PO QAM 10/28/21 12/06/23 History 1,000 mcg tablet (Vitamin B-12) ustekinumab 90 mg/mL subcutaneous 90 mg subcut UD 10/28/21 12/06/23 History syringe (Stelara) blood sugar diagnostic (OneTouch #100 ea 02/07/22 12/03/23 Rx Verio test strips) cholecalciferol (vitamin D3) 25 5,000 unit PO QAM 02/07/22 12/06/23 History mcg (1,000 unit) tablet (Vitamin D3) potassium chloride 10 mEq 10 meq PO BID 04/21/22 12/06/23 History tablet,extended release(part/cryst) amiodarone 200 mg tablet 200 mg PO BID #1 tab 11/11/23 12/06/23 Rx sacubitril 24 mg-valsartan 26 mg 1 tab PO BID #60 tabs 11/11/23 12/06/23 Rx tablet (Entresto) metformin 500 mg tablet 1,000 mg (2 x 500 mg) PO BID 90 12/03/23 12/06/23 Rx days #360 tabs metoprolol succinate 25 mg 25 mg PO BID #180 tabs 12/03/23 12/06/23 Rx tablet,extended release 24 hr empagliflozin 25 mg tablet 25 mg PO QAM 12/06/23 12/06/23 History (Jardiance) magnesium oxide 400 mg PO QAM 12/06/23 12/06/23 History rosuvastatin 10 mg tablet 10 mg PO HS 12/06/23 12/06/23 History Past Med/Surg History Problem List (Updated 12/06/23 @ 13:13 by Sean Desouza M.D.) Ventricular tachycardia, paroxysmal (Acute) Syncope and collapse (Acute) Leukocytosis Abnormal CBC History of cardioversion History of implantable cardiac defibrillator (ICD) Vitamin D deficiency Hyperlipidemia Gout Dilated cardiomyopathy Controlled type 2 diabetes mellitus Congestive heart failure LV EF 15-20% on 11/04/23 echo Atrial fibrillation Stress fracture of foot Sinusitis Secondary hyperparathyroidism Psoriatic arthritis Obstructive sleep apnea Obesity (BMI 30.0-34.9) Mineral deficiency Long-term use of immunosuppressant medication Hypertension History of osteoporotic pathological fracture Cardiac arrhythmia Allergic rhinitis Acute on chronic combined systolic and diastolic CHF (congestive heart failure) Dilated cardiomyopathy Atrial fibrillation with controlled ventricular rate Acute on chronic heart failure with reduced ejection fraction and diastolic dysfunction Elevated LFTs Elevated troponin Cough Chest tightness SWAIN (dyspnea on exertion) Vitamin D deficiency Obesity Possible exposure to STD Encounter for physical examination related to employment Routine health maintenance (Chronic) HTN (hypertension), benign (Chronic) Hyperlipidemia (Chronic) Gout (Chronic) Type 2 diabetes mellitus (Chronic) CHF (congestive heart failure) (Chronic) Cardiomegaly (Chronic) Psoriasis (Chronic) Sinus tachycardia (Acute) Sinus tachycardia (Acute) Atrial fibrillation Atrial fibrillation with RVR (Acute) Defibrillator discharge (Acute) Rapid atrial fibrillation (Acute) Cardiomyopathy (Acute) Surgical History S/P knee surgery Family History Other No significant family history Denies family history of Ovarian cancer Prostate cancer Myocardial infarction Breast cancer Colorectal cancer Social History Smoking Status: Never smoker Second Hand Exposure: No; Do You Dip or Chew Tobacco: No; Hx Alcohol Use: Yes Hx Substance Use: No Preferred Language: Liberian Communication Ability: Effective Collision Repair Technician Required: No Beliefs That Will Affect Care: None marital status: Single Current Living Situation: Family current occupational status: disabled How many Children do You have: 0 Feels Safe at Home: Yes Childhood Exposure to Second-Hand Smoke: No Diet: regular caffeine: Yes Dental Care, Regularly: Yes Physical Activity Frequency: Daily Seatbelt Use: always Sunscreen Use: No Assistive Devices: CPAP Physical Exam Physical Exam: Physical Exam: General: In no acute distress, stated age, well-nourished, non-toxic appearing HEENT: Normocephalic, atraumatic, no scleral icterus, pupils around round, symmetrical, and reactive to light, moist mucus membranes, negative JVD, trachea midline, no thyromegaly Chest/Pulm: No respiratory distress, symmetrical chest expansion, clear breath sounds throughout Cardiac: irregular rate and rhythm, 3/6 systolic murmur noted Abdomen: Negative for ascites and bruising, normoactive bowel sounds, soft, non-tender to palpation throughout Musculoskeletal: Symmetrical and without signs of acute trauma, upper and lower extremities with full ROM, no atrophy, spasticity, or flaccidity Extremities: Radial, dorsalis pedis, and posterior tibial pulses are intact and symmetrical, no edema noted in the BL LE's Skin: Warm, dry, no rashes , lesions, or scars noted Neuro: Alert and oriented to person, place, month, year, and president, no focal defects, no tremors noted Psych: No acute distress, calm and cooperative during the exam Results & Data Results & Data Vital Signs (Past 12 Hours) Vital Signs Temp Pulse Pulse Resp BP BP Pulse Ox 12/06/23 11:50 81 21 122/106 H 94 12/06/23 11:50 12/06/23 11:50 97 H 16 95 12/06/23 10:51 88 12/06/23 10:40 95 H 21 94 12/06/23 10:39 36.8 C 100 H 20 106/71 O2 Del Method 12/06/23 11:50 Room Air 12/06/23 11:50 Room Air 12/06/23 11:50 Room Air 12/06/23 10:51 12/06/23 10:40 Room Air 12/06/23 10:39 Room Air Laboratory Results Abnormal lab results 12/06/23 Range/Units 10:38 PT 13.7 H (9.0-12.0) Seconds INR 1.3 H (0.9-1.1) Chloride 108 H (98-107) mmol/L Glucose 153 H (70-99(Fasting)) mg/dl Urine Glucose (UA) 3+ H (Negative) Digoxin 0.6 L (0.8-2.0) ng/ml Diagnostic Findings Chest X-Ray 12/06/23 10:50 XR chest 1V portable CLINICAL HISTORY: syncope TECHNIQUE: Single frontal radiograph of the chest was obtained. Comparison: Comparison is made to chest radiograph 11/04/2023 FINDINGS: Pacemaker defibrillator is seen. Cardiomegaly is noted. The lungs are clear. No evidence of pleural effusion or pneumothorax. IMPRESSION: No acute chest disease. Cardiomegaly is noted. ACT 112: Negative or not required by law. Electronically signed by: Renard Huddleston M.D. 12/06/2023 12:11 PM ECG Additional Comments: Atrial fibrillation Non-specific intra-ventricular conduction block Nonspecific T wave abnormality Abnormal ECG When compared with ECG of 10-NOV-2023 07:22, Atrial fibrillation has replaced Sinus rhythm Non-specific change in ST segment in Anterior leads Code Status & VTE Plan Code Status FUll code VTE Prophylaxis Plan VTE Prophylaxis will be ordered: Yes Supervising Physician Co-Signing Physician Notes Patient was seen and examined, agree with above assessment and plan 48 yo male with nonischemic cardiomyopathy , s/p ICD, chronic afib , on A miodarone, Xarelto, Digoxin, Entresto, Lasix, presents with episode of VT, no shock delivered by AICD monitor on tele, cardiology consulted continue home meds no signs of CHF exacerbation supplement potassium PG Care Time/CCT Total # of Minutes Spent Total Time Spent with Patient: Total time spent is greater than 50% in coordination of care (as documented) at patient's floor/unit and/or counseling patient: Coding [place] [address] INT INP/OBS CARE 3/75MIN Patient Type Established Medical Decision Making High Complexity Diagnoses Syncope and collapse R55 Dilated cardiomyopathy I42.0 Controlled type 2 diabetes mellitus E11.9 Atrial fibrillation I48.91 Obstructive sleep apnea G47.33 Hypertension I10
[2023-12-06] MEDS ORDERED: GLUCOSE 40% GEL 15 GM TUBE PO PRN (14:02)
[2023-12-06] MEDS ORDERED: DEXTROSE 50% 50 ML SYRINGE IV PRN (14:02)
[2023-12-06] MEDS ORDERED: GLUCAGON FOR INJ 1 MG VIAL SQ PRN (14:02)
[2023-12-06] MEDS ORDERED: CARBOHYDRATES FOR HYPOGLYCEMIA PO PRN (14:02)
[2023-12-06] MEDS ORDERED: GLUCOSE 10 TAB/TUBE PO PRN (14:02)
[2023-12-06] MEDS: POTASSIUM CHLORIDE CRTAB 20 MEQ TABCR PO STA (14:07)
[2023-12-06] MEDS: INSULIN ASPART PER UNIT CHARGE SC SCH (14:57)
[2023-12-06] MEDS: RIVAROXABAN 20 MG TAB PO SCH (18:14)
[2023-12-06] MEDS: POTASSIUM CHLORIDE 10 MEQ TABCR PO SCH (20:57)
[2023-12-06] MEDS: AMIODARONE 200 MG TAB PO SCH (20:57)
[2023-12-06] MEDS: ROSUVASTATIN CALCIUM 10 MG TAB PO SCH (20:57)
[2023-12-06] MEDS: METOPROLOL SUCC 25MG EXT REL TAB PO SCH (20:57)
[2023-12-07 06:16] LABS: Basophils # (auto) 0.05 K/uL (0.00-0.20); Basophils % (auto) 0.6 %; Eosinophils # (auto) 0.16 K/uL (0.00-0.50); Eosinophils % (auto) 1.9 %; Hematocrit (blood only) 45.6 % (42.0-52.0); Hemoglobin 14.8 g/dl (14.0-18.0); Immature Granulocytes # (auto) 0.04 K/uL (0.01-0.20); Immature Granulocytes % (auto) 0.5 %; Lymphocytes # (auto) 1.49 K/uL (1.20-3.40); Lymphocytes % (auto) 17.8 %; Mean Corpuscular Hemoglobin 27.8 pg (25.0-34.0); Mean Corpuscular Hgb Conc 32.5 g/dL (32.0-36.0); Mean Corpuscular Volume 85.6 fL (80.0-100.0); Mean Platelet Volume 9.4 fL (9.4-12.4); Monocytes # (auto) 0.67 K/uL (0.11-0.59); Neutrophils # (auto) 5.95 K/uL (1.40-6.50); Neutrophils % (auto) 71.2 %; Platelet Count 265 K/uL (130-400); RDW Standard Deviation 43.6 fL (36.4-46.3); Red Blood Count 5.33 M/uL (4.70-6.10); White Blood Count 8.36 K/ul (4.8-10.8)
[2023-12-07 06:31] LABS: Creatinine Clr Calc Pharmacy 105.6 ml/min; Est GFR (Non-African American) 81.1 ml/min; Magnesium 2.5 mg/dl (1.7-2.4); Potassium 4.2 mmol/L (3.5-5.1)
[2023-12-07 06:37] LABS: INR 1.2 (0.9-1.1)
--- NOTE | 2023-12-07 07:59 | Hospitalist Progress Note ---
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 -[place] as though he was going to pass out prior to syncopal episode -No seizure like activity, was alert and oriented shortly after waking -Will ensure patient's ICD is interrogated -Potassium of 3.6 and mag of 2.3 >Will give 40 mew PO KCL now -Will consult [facility] Cardiology -Will plan to continue all cardiac medications at this time unless requested to hold by Cardiology -Currently euvolemic on exam, will hold IV fluids for now with his EF of 15-20% -Patient denies chest pain, initial high sen trop WNL, will reapeat a 2 hour high sen trop now -Fall precautions -Continue to monitor on tele -Home Xarelto for DVT PPX -HH/DMII diet with 2gm Sodium and 1800 mL fluid restrictions -AM CBC, CMP, mag, PT/INR 12/06 Cardiology consult pending, ICD interrogation to have been done/will follow up. Printout of report indicating on December 05, had 2 NSVT episodes, 1-3 secondas 182bpm-186bpm. 1 SVT episode 182bpm, 13 minutes. 1 VF episode (appears DVT-VT in VF zone) appears to break prior to tx. Unknown if episodes are aerially or ventricular driven. Optivol crossing November 26- ongoing. All episodes December 05, MILLINERY BLOCKER 0.3% Also to note, DIGOXIN level LOW 0.6- defer ongoing use to cardiology given remains in afib, on amiodarone 200mg BID as well and underwent cardioversion x 2 unsuccessful last admission and mentions about ref for EP in last consultation note WBC wnl, afebrile UA w/ 3+ glucose (last A1c 6.10 May 2023, on metformin 1gm BID, Jardiance for DM/HF at baseline) Patient wanting to go home today, will await formal eval by cardiology/recommendations but has been afib/rates controlled during inpatient stay and reports feeling well, no CP/SOB/syncope reports at present time. (2) Dilated cardiomyopathy: Plan: -Currently euvolemic on exam -Will plan to continue entresto, lasix, Jardiance, and spironolactone -Monitor daily mag and potassium level (3) Controlled type 2 diabetes mellitus: Plan: -Monitor BSG ACHS, goal is 110-160 -Start CF 50 and CR 15 ACHS for now -Will hold metformin, continue Jardiance as he is on this for both DMII and CHF -Adjust regimen as needed (4) Atrial fibrillation: Plan: -Currently in rate controlled afib -Will give 40 mew PO KCL now as K+ is currently 3.6 -Continue Xarelto -Continue Amiodarone, dig, metoprolol (5) Obstructive sleep apnea: Plan: -HS CPAP ordered (6) Hypertension: Plan: -Patient normally has low-normal BP's as of the recent past -Currently stable at 93/78 and asymptomatic -Will hold IV fluids for now unless recommended by Cardiology due to LVEF of 15- 20% -Continue all cardiac medications at this time Plan The patient was discussed with Dr. Pena at the time of the admission Admission and Anticipated Discharge Date Admission Date: December 06, 2023 Subjective Evaluated this morning, sitting up in bed, parents in room. Feeling well, no further issues. Did report some palpitations/feeling like things moving in slow motion prior to passing out/syncopal episode but woke up and no evidence for seizure like activity or confusion but was brought to ER> Discussed ICD interrogation/sent to cardiology but has not yet been seen. He reports feeling fine today/wanting to go home. had cardioversion in past x 2, appears was discussion about possible ablation referral during last admission. Results & Data Results & Data Vital Signs (Past 12 Hours) Vital Signs Temp Pulse Pulse Resp BP BP Pulse Ox 12/07/23 07:39 36.7 C 65 18 134/100 94 12/07/23 07:12 86 12/07/23 02:18 36.7 C 62 18 94/67 L 95 12/06/23 23:51 12/06/23 22:38 36.6 C 72 18 110/68 91 12/06/23 22:05 71 O2 Del Method 12/07/23 07:39 Room Air 12/07/23 07:12 12/07/23 02:18 Room Air 12/06/23 23:51 Room Air 12/06/23 22:38 Room Air 12/06/23 22:05 Laboratory Results 12/07/23 12/06/23 12/06/23 Range/Units 05:51 20:13 18:16 WBC 8.36 (4.8-10.8) K/ul RBC 5.33 (4.70-6.10) M/uL Hgb 14.8 (14.0-18.0) g/dl Hct 45.6 (42.0-52.0) % MCV 85.6 (80.0-100.0) fL MCH 27.8 (25.0-34.0) pg MCHC 32.5 (32.0-36.0) g/dL RDW Std Deviation 43.6 (36.4-46.3) fL RDW Coeff of Ronaldo 14.0 (11.5-14.5) % Plt Count 265 (130-400) K/uL MPV 9.4 (9.4-12.4) fL Immature Gran % (Auto) 0.5 % Neut % (Auto) 71.2 % Lymph % (Auto) 17.8 % [place] % (Auto) 8.0 % Eos % (Auto) 1.9 % Baso % (Auto) 0.6 % Neut # (Auto) 5.95 (1.40-6.50) K/uL Lymph # (Auto) 1.49 (1.20-3.40) K/uL [place] # (Auto) 0.67 H (0.11-0.59) K/uL Eos # (Auto) 0.16 (0.00-0.50) K/uL Baso # (Auto) 0.05 (0.00-0.20) K/uL Immature Gran # (Auto) 0.04 (0.01-0.20) K/uL PT 13.0 H (9.0-12.0) Seconds INR 1.2 H (0.9-1.1) Sodium 139 (136-145) mmol/L Potassium 4.2 (3.5-5.1) mmol/L Chloride 107 (98-107) mmol/L Carbon Dioxide 25 (21-32) mmol/L Anion Gap 7 (3-11) BUN 16 (6-23) mg/dl Creatinine 1.07 (0.6-1.4) mg/dl Est Cr Clr Drug Dosing 105.6 ml/min Est GFR ( Amer) 94.0 ml/min Est GFR (Non-Af Amer) 81.1 ml/min BUN/Creatinine Ratio 15.0 (10-20) Glucose 121 H (70-99(Fasting)) mg/dl POC Glucose 115 H 103 H (70-99) mg/dl Calcium 9.0 (8.6-10.3) mg/dl Magnesium 2.5 H (1.7-2.4) mg/dl Total Bilirubin (0.2-1.0) mg/dl AST (13-39) U/L ALT (7-52) U/L Alkaline Phosphatase (34-104) U/L Troponin I High Sens (0-20) pg/ml Total Protein (6.0-8.3) gm/dl Albumin (3.4-5.0) gm/dl Globulin (2.5-4.0) gm/dl Albumin/Globulin Ratio (0.9-2) Urine Color Urine Appearance (Clear) Urine pH (4.5-7.5) Ur Specific [place] (1.000-1.030) Urine Protein (Negative) Urine Glucose (UA) (Negative) Urine Ketones (Negative) Urine Blood (Negative) Urine Nitrite (Negative) Urine Bilirubin (Negative) Urine Urobilinogen (Negative) Ur Leukocyte Esterase (Negative) Digoxin (0.8-2.0) ng/ml 12/06/23 12/06/23 12/06/23 Range/Units 14:19 14:13 10:38 WBC 8.25 (4.8-10.8) K/ul RBC 5.59 (4.70-6.10) M/uL Hgb 15.7 (14.0-18.0) g/dl Hct 47.3 (42.0-52.0) % MCV 84.6 (80.0-100.0) fL MCH 28.1 (25.0-34.0) pg MCHC 33.2 (32.0-36.0) g/dL RDW Std Deviation 42.3 (36.4-46.3) fL RDW Coeff of Ronaldo 13.8 (11.5-14.5) % Plt Count 294 (130-400) K/uL MPV 9.7 (9.4-12.4) fL Immature Gran % (Auto) 0.4 % Neut % (Auto) 75.7 % Lymph % (Auto) 15.9 % [place] % (Auto) 6.5 % Eos % (Auto) 1.0 % Baso % (Auto) 0.5 % Neut # (Auto) 6.25 (1.40-6.50) K/uL Lymph # (Auto) 1.31 (1.20-3.40) K/uL [place] # (Auto) 0.54 (0.11-0.59) K/uL Eos # (Auto) 0.08 (0.00-0.50) K/uL Baso # (Auto) 0.04 (0.00-0.20) K/uL Immature Gran # (Auto) 0.03 (0.01-0.20) K/uL PT 13.7 H (9.0-12.0) Seconds INR 1.3 H (0.9-1.1) Sodium 142 (136-145) mmol/L Potassium 3.6 (3.5-5.1) mmol/L Chloride 108 H (98-107) mmol/L Carbon Dioxide 24 (21-32) mmol/L Anion Gap 10 (3-11) BUN 20 (6-23) mg/dl Creatinine 1.13 (0.6-1.4) mg/dl Est Cr Clr Drug Dosing 99.2 ml/min Est GFR ( Amer) 88.0 ml/min Est GFR (Non-Af Amer) 75.9 ml/min BUN/Creatinine Ratio 17.7 (10-20) Glucose 153 H (70-99(Fasting)) mg/dl POC Glucose 83 (70-99) mg/dl Calcium 9.4 (8.6-10.3) mg/dl Magnesium 2.3 (1.7-2.4) mg/dl Total Bilirubin 0.9 (0.2-1.0) mg/dl AST 34 (13-39) U/L ALT 31 (7-52) U/L Alkaline Phosphatase 87 (34-104) U/L Troponin I High Sens 15.5 12.8 (0-20) pg/ml Total Protein 8.0 (6.0-8.3) gm/dl Albumin 4.8 (3.4-5.0) gm/dl Globulin 3.2 (2.5-4.0) gm/dl Albumin/Globulin Ratio 1.5 (0.9-2) Urine Color Yellow Urine Appearance Clear (Clear) Urine pH 6.5 (4.5-7.5) Ur Specific [place] 1.013 (1.000-1.030) Urine Protein Negative (Negative) Urine Glucose (UA) 3+ H (Negative) Urine Ketones Negative (Negative) Urine Blood Negative (Negative) Urine Nitrite Negative (Negative) Urine Bilirubin Negative (Negative) Urine Urobilinogen Negative (Negative) Ur Leukocyte Esterase Negative (Negative) Digoxin 0.6 L (0.8-2.0) ng/ml Diagnostic Findings Chest X-Ray 12/06/23 10:50 XR chest 1V portable CLINICAL HISTORY: syncope TECHNIQUE: Single frontal radiograph of the chest was obtained. Comparison: Comparison is made to chest radiograph 11/04/2023 FINDINGS: Pacemaker defibrillator is seen. Cardiomegaly is noted. The lungs are clear. No evidence of pleural effusion or pneumothorax. IMPRESSION: No acute chest disease. Cardiomegaly is noted. ACT 112: Negative or not required by law. Electronically signed by: Renard Huddleston M.D. 12/06/2023 12:11 PM PG Care Time/CCT Total # of Minutes Spent Total Time Spent with Patient: Total time spent is greater than 50% in coordination of care (as documented) at patient's floor/unit and/or counseling patient: Coding Diagnoses Syncope and collapse R55 Dilated cardiomyopathy I42.0 Controlled type 2 diabetes mellitus E11.9 Atrial fibrillation I48.91 Obstructive sleep apnea G47.33 Hypertension I10
[2023-12-07] MEDS: EMPAGLIFLOZIN 25 MG TAB PO SCH (08:25)
[2023-12-07] MEDS: DIGOXIN 0.125 MG TAB PO SCH (08:26)
[2023-12-07] MEDS: allopurinoL 300 MG TAB PO SCH (08:26)
[2023-12-07 08:38] LABS: Troponin I High Sensitivity 15.1 pg/ml (0-20)
[2023-12-07] MEDS ORDERED: MAGNESIUM OXIDE 400 MG TAB PO SCH (09:00)
--- NOTE | 2023-12-07 12:53 | Cardiology Consultation ---
Date of Consultation December 07, 2023 Assessment & Plan (1) Syncope and collapse: (2) Ventricular tachycardia, paroxysmal: (3) Dilated cardiomyopathy: (4) History of implantable cardiac defibrillator (ICD): Plan Patient with longstanding history of nonischemic cardiomyopathy, heart failure with reduced ejection fraction. Had been admitted a month ago with acute fluid retention, at that time atrial fibrillation with rapid ventricular response noted. He underwent direct-current cardioversion x 2 and initially was found to be in sinus rhythm but has reverted back to a rate controlled atrial fibrillation. Yesterday, while performing high-level activities that I would describe as being more vigorous than what I would recommend the patient had a syncopal episode that correlated with an episode of ventricular tachycardia of 44 seconds in duration. The patient spontaneously converted back to sinus rhythm prior to device treatment. Interrogation of the device however reveals appropriate device function. At present continue current prehospital medications including amiodarone 200 mg twice daily, metoprolol succinate 25 mg twice daily, digoxin, Entresto, Jardiance, Xarelto, rosuvastatin. Patient tentatively scheduled for repeat outpatient echocardiogram 6 weeks post recent office visit. Future considerations include repeat pulmonary vein isolation procedure, referral to advanced heart failure program if ejection fraction remains less than 20%. Future considerations also include genetic testing for genetically mediated cardiomyopathies. Per review of his chart, he has been enrolled in the [employer] project, but has not had dedicated testing. Patient aware of need to modify activity expectations at least in the short-term pending further assessment and treatment. 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 Case discussed by phone with Claire Knight for the purpose of coordination of care. History of Present Illness Attending Physician: Rakel Young MD History of Present Illness Shahid Palomino is a 48-year-old male seen in cardiology consultation per the request of Quintin Renteria PA-C for the evaluation of syncope. Patient has a complex history of a nonischemic cardiomyopathy and underwent implantation of a single-chamber Medtronic AICD in 2014. He has had past appropriate AICD discharges for ventricular arrhythmias. He had been hospitalized last month in Nov, 2023 with acutely decompensated heart failure with reduced ejection fraction and recurrent atrial fibrillation with elevated ventricular rate. His ejection fraction was noted to be in the range of 15 to 20% during that admission having been 30 to 34% on an outpatient echocardiogram in December,. Direct-current cardioversion was performed on 11/06/2023 with successful conversion to sinus rhythm after 3 countershocks, maximum energy 360 J of biphasic energy, however patient labs back and atrial fibrillation on 11/08/2023 and therefore had undergone repeat direct-current cardioversion on 11/09/2023 while on treatment with amiodarone with successful conversation to sinus rhythm at that time. At time of follow-up visit with Dr. Johnson on 11/17/2023 he had reverted back to a rate controlled atrial fibrillation however he was feeling well at that time. 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 He notes that he did not eat a lot before the game, and he felt like he was a little volume depleted. At half time, he had a Gatorade but was not feeling acutely ill, toward the end of the game he had abrupt onset of feeling dizzy and the next thing he remembers is bystanders standing around him with having collapsed. He was aware of his surroundings and did not hit his head. He has single-chamber Medtronic AICD which had been implanted in 2014 was interrogated on arrival to the emergency department. Generator longevity is relatively stable at 1.8 years. An episode of ventricular tachycardia with extremely fast rate of 250 bpm was observed on the interrogation on 12/06/2023 at 9:58 AM that correlates with his event yesterday, the ventricular tachycardia persisted for 44 seconds, and terminated spontaneously while the device was charging and therefore no therapy was delivered. Patient has had other brief episodes of nonsustained ventricular tachycardia dating back to October, but they were very brief, of 2 seconds in duration or less. Cardiology History: 1. Idiopathic dilated cardiomyopathy with markedly dilated ventricle, left ventricular end diastolic dimension 7.5 cm, severely reduced ejection fraction., initial diagnosis February 2007 2. Class II-III congestive heart failure [employer]. 3. Status post prophylactic pacer defibrillator implantation single chamber January 2008. Last generator exchange June 26, 2015 Medtronic, model -Evera XT VR [id number] 4. Past history of sustained ventricular tachycardia, appropriate device activation most recent discharge 2015 5. Paroxysmal and intermittently persistent atrial fibrillation. 6. Hospitalizations with acute pulmonary edema x3 in association with atrial fibrillation with rapid response and acute presentation following elective synchronized electrical cardioversion. Most recent event November 04, 2023 7. Status post synchronized electrical cardioversion on 10/14/2016, November 06, 2023, November 10, 2023 8. Dilated aortic root and ascending aorta Allergies Allergy/AdvReac Type Severity Reaction Status Date / Time Penicillins Allergy Unknown Unknown Verified 12/06/23 13:02 Home Medications Medication Instructions Recorded Confirmed Type digoxin 125 mcg (0.125 mg) tablet 125 mcg PO QAM 07/22/18 12/06/23 History furosemide 40 mg tablet 40 mg PO BID 07/22/18 12/06/23 History rivaroxaban 20 mg tablet 20 mg PO HS 07/22/18 12/06/23 History spironolactone 25 mg tablet 25 mg PO QAM 07/22/18 12/06/23 History lancets 33 gauge ([facility] ea 02/05/21 12/03/23 History Lancets) allopurinol 300 mg tablet 300 mg PO QAM 10/28/21 12/06/23 History cyanocobalamin (vitamin B-12) 1,000 mcg PO QAM 10/28/21 12/06/23 History 1,000 mcg tablet (Vitamin B-12) ustekinumab 90 mg/mL subcutaneous 90 mg subcut UD 10/28/21 12/06/23 History syringe (Stelara) blood sugar diagnostic (AppuriTouch #100 ea 02/07/22 12/03/23 Rx Verio test strips) cholecalciferol (vitamin D3) 25 5,000 unit PO QAM 02/07/22 12/06/23 History mcg (1,000 unit) tablet (Vitamin D3) potassium chloride 10 mEq 10 meq PO BID 04/21/22 12/06/23 History tablet,extended release(part/cryst) amiodarone 200 mg tablet 200 mg PO BID #1 tab 11/11/23 12/06/23 Rx sacubitril 24 mg-valsartan 26 mg 1 tab PO BID #60 tabs 11/11/23 12/06/23 Rx tablet (Entresto) metformin 500 mg tablet 1,000 mg (2 x 500 mg) PO BID 90 12/03/23 12/06/23 Rx days #360 tabs metoprolol succinate 25 mg 25 mg PO BID #180 tabs 12/03/23 12/06/23 Rx tablet,extended release 24 hr empagliflozin 25 mg tablet 25 mg PO QAM 12/06/23 12/06/23 History (Jardiance) magnesium oxide 400 mg PO QAM 12/06/23 12/06/23 History rosuvastatin 10 mg tablet 10 mg PO HS 12/06/23 12/06/23 History Patient History Surgical History S/P knee surgery Family History Other No significant family history Denies family history of Ovarian cancer Prostate cancer Myocardial infarction Breast cancer Colorectal cancer Social History Smoking Status: Never smoker Second Hand Exposure: No; Do You Dip or Chew Tobacco: No; Hx Alcohol Use: Yes Hx Substance Use: No Preferred Language: Belgian Communication Ability: Effective Labor And Delivery Registered Nurse Required: No Beliefs That Will Affect Care: None marital status: Single Current Living Situation: Parent current occupational status: disabled How many Children do You have: 0 Feels Safe at Home: Yes Childhood Exposure to Second-Hand Smoke: No Diet: regular caffeine: Yes Dental Care, Regularly: Yes Physical Activity Frequency: Daily Seatbelt Use: always Sunscreen Use: No Assistive Devices: Glasses Review of Systems Review of Systems: All systems reviewed & are unremarkable except as noted in HPI & below Physical Exam Physical Exam: General: no acute distress and stated age Eyes: conjunctiva are pink and non-injected, sclera clear Neck: normal jugular venous pulse, no hepatojugular reflux Chest: normal shape and normal respiratory effort Lungs: clear to auscultation and percussion Cardiac Exam: - regular heart sounds, no murmurs, rubs, or gallops, no jugular venous distention Abdomen: abdomen soft, non-tender, no abnormal masses and no hepatosplenomegaly Musculoskeletal: no gait disturbance, no weakness Extremities: no edema and no cyanosis Neuro:awake, conversant, follows commands, no focal motor deficits Psych: appropriate affect and insight. Results & Data Vital Signs (Past 12 Hours) Vital Signs Temp Pulse Pulse Resp BP BP Pulse Ox 12/07/23 10:51 36.7 C 82 18 94/67 L 94 12/07/23 08:26 65 12/07/23 07:39 36.7 C 65 18 134/100 94 12/07/23 07:12 86 12/07/23 02:18 36.7 C 62 18 94/67 L 95 O2 Del Method 12/07/23 10:51 Room Air 12/07/23 08:26 12/07/23 07:39 Room Air 12/07/23 07:12 12/07/23 02:18 Room Air Laboratory Results EKG performed 12/06/2023 at 10:34 AM reveals atrial fibrillation at 96 bpm, mild intraventricular conduction delay nonspecific repolarization abnormalities. Compared to the previous tracing dated 11/10/2023, atrial fibrillation has replaced sinus rhythm. The nonspecific repolarization abnormalities are relatively unchanged.
--- NOTE | 2023-12-07 13:46 | Discharge Summary ---
<Statement entered by Rakel Young MD - 12/07/23 18:13> Mr. 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 His ICD was interrogated and it appears this was related to a episode of V. tach which self terminated prior to the ICD firing. He is also struggled with atrial fibrillation recently that is symptomatic for him though has been unable to maintain sinus rhythm after cardioversions and is on amiodarone. I personally reviewed his chart including notes, vital signs, labs and studies. My exam he is resting comfortably laying near flat in bed with no dyspnea he has no peripheral edema. Administrative Specialist consulted this admission did not recommend any medication changes, he will follow-up closely as scheduled with repeat outpatient echo and may be referred for ablation procedure in the future. I agree with documentation by Claire Sampson PA-C. 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 He was initially noted to be tachycardic on arrival at 100 BPM but otherwise stable. Labs were significant for a high sen trop WNL, potassium of 3.6, and subtherapeutic Dig level of 0.6 ng/mL. Chest xray was read as negative for acute findings. ECG showed the patient to be back in atrial fibrillation with ST segment depressions in the anterolateral leads. The ED staff spoke with [facility] Cardiology (patient follows them outpatient) who recommended admission for ongoing monitoring. At the time of the exam the patient was sitting in bed in no acute distress. States that he had been in his normal state of health this am after waking. He did not eat breakfast as he was running late for the basketball game. He did have a sports drink on his way. 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 He does not believe that his ICD fire d. He had a sudden episode of syncope. Bystanders reported that he did not hit his head. He woke up shortly after and was alert and oriented. He confirms to me that he took all his am medications including amiodarone, dig, 40 mg Lasix, 25 mg Metoprolol, Entresto, and spironolactone. He was admitted to [facility] from 11/04/23-11/11/23 due to recurrent afib RVR and acute heart failure exacerbation. He underwent cardioversion on 11/05 and again on 11/09. He currently feels well since arrival back to the ED. Sates that he and his Administrative Specialist have been in discussions regarding eventual heart transplant for years, at this time he wants to wait until absolutely necessary. Denies recent fever, chills, chest pain, cough, SOB, abd pain, nausea, vomiting, diarrhea, dysuria, hematuria, melena, LE swelling, and recent trauma. Please refer to Dr. Pena's attestation for any changes to the treatment plan Admission Exam Per Admitting Provider Physical Exam: General: In no acute distress, stated age, well-nourished, non-toxic appearing HEENT: Normocephalic, atraumatic, no scleral icterus, pupils around round, symmetrical, and reactive to light, moist mucus membranes, negative JVD, trachea midline, no thyromegaly Chest/Pulm: No respiratory distress, symmetrical chest expansion, clear breath sounds throughout Cardiac: irregular rate and rhythm, 3/6 systolic murmur noted Abdomen: Negative for ascites and bruising, normoactive bowel sounds, soft, non- tender to palpation throughout Musculoskeletal: Symmetrical and without signs of acute trauma, upper and lower extremities with full ROM, no atrophy, spasticity, or flaccidity Extremities: Radial, dorsalis pedis, and posterior tibial pulses are intact and symmetrical, no edema noted in the BL LE's Skin: Warm, dry, no rashes , lesions, or scars noted Neuro: Alert and oriented to person, place, month, year, and president, no focal defects, no tremors noted Psych: No acute distress, calm and cooperative during the exam Principal Diagnosis Syncope/Collapse, SVT Discharge Data Allergies Allergy/AdvReac Type Severity Reaction Status Date / Time Penicillins Allergy Unknown Unknown Verified 12/06/23 13:02 Consultations 12/06/23 13:21 ED Decision to Admit Stat 12/06/23 13:42 Consult Cardiology Routine Ordered Studies Chest X-Ray 12/06/23 10:50 XR chest 1V portable CLINICAL HISTORY: syncope TECHNIQUE: Single frontal radiograph of the chest was obtained. Comparison: Comparison is made to chest radiograph 11/04/2023 FINDINGS: Pacemaker defibrillator is seen. Cardiomegaly is noted. The lungs are clear. No evidence of pleural effusion or pneumothorax. IMPRESSION: No acute chest disease. Cardiomegaly is noted. ACT 112: Negative or not required by law. Electronically signed by: Renard Huddleston M.D. 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 [place] as though was going to pass out/palpitations prior to syncopal episode and things moving in slow motion. No seizure like activity and was alert/oriented shortly after waking. K 3.6 on admission with mag 2.3 and provided PO Kcl to keep closer to 4 w/ his underlying afib (s/p cardioversion x 2 in November w/ recurrance) No leukocytosis/fever or infectious symptoms On admission, continued home cardiac medications including amiodarone 200mg BID, digoxin 125mcg daily, jardiance 25mg, metoprolol succinate 25mg BID, spironolactone 25mg and lasix 40mg PO BID resumed. CXR w/ cardiomegaly without significant pulmonary edema. Remained on xarelto and statin Cardiology consulted and ICD interrogation performed -Printout of report indicating on December 05, had 2 NSVT episodes, 1-3 secondas 182bpm-186bpm. 1 SVT episode 182bpm, 13 minutes. 1 VF episode (appears DVT-VT in VF zone) appears to break prior to tx. Unknown if episodes are aerially or ventricular driven. Optivol crossing November 26- ongoing. All episodes December 05, [employer] 0.3% Dr Ingram saw patient, discussed w/ Dr Wilson as well. Regarding ICD interrogation, * "He has single-chamber Medtronic AICD which had been implanted in 2014 was interrogated on arrival to the emergency department. Generator longevity is relatively stable at 1.8 years. An episode of ventricular tachycardia with extremely fast rate of 250 bpm was observed on the interrogation on 12/06/2023 at 9:58 AM that correlates with his event yesterday, the ventricular tachycardia persisted for 44 seconds, and terminated spontaneously while the device was charging and therefore no therapy was delivered. * Patient has had other brief episodes of nonsustained ventricular tachycardia dating back to October, but they were very brief, of 2 seconds in duration or less." "While performing high-level activities that I would describe as being more vigorous than what I would recommend the patient had a syncopal episode that correlated with an episode of ventricular tachycardia of 44 seconds in duration. The patient spontaneously converted back to sinus rhythm prior to device treatment. Interrogation of the device however reveals appropriate device function." Discussed with Dr Ingram and shawn with discharge of Mr Ambrosio from cardiac standpoint. They already have outpt ECHO ordered for 6 wks post-recent office visit given acute HF w/ further reduction in EF last month. Future considerations for repeat pulmonary vein isolation procedure, referral to advanced heart failure program if ejection fraction remains less than 20%. Future considerations also include genetic testing for genetically mediated cardiomyopathies. Per review of his chart, he has been enrolled in the [employer] project, but has not had dedicated testing. Patient aware of need to modify activity expectations at least in the short-term pending further assessment and treatment. He is aware NOT to officiated basketball games until counseled otherwise. Also to note, DIGOXIN level LOW 0.6- per cards, to continue given currently in afib and rates controlled. Patient to dc and have close f/u cardiology. Family updated at bedside prior to dc (2) Dilated cardiomyopathy: Euvolemic on exam, meds continued as above. Mag/K stable on repeat. [facility] arranged as above (3) Controlled type 2 diabetes mellitus: UA w/ 3+ glucose (last A1c 6.10 May 2023, on metformin 1gm BID, Jardiance for DM/HF at baseline)- no urinary sx, preventing significant dehydration encouraged Home metformin held on admission but continued jardiance given on for DM/HF BSGs improved, hydration status acceptable. Continue home meds at dc (4) Atrial fibrillation: In afib on monitor, rates 60-80s, no arrtyhmia while inpatient but see above regarding episodes on ICD prior to admission Dig level 0.6, to continue per cards as also on for rate control and rates controlled at this time Continued on xarelto, amiodarone 200mg PO BID, digoxin, metoprolol. TSH wnl last month, would continue to monitor w/ outpt provider while on amiodarone (5) Obstructive sleep apnea: HS CPAP ordered compliance encouraged (6) Hypertension: Low normal BPs as of recent past , likely from reduced EF/above IVF not provided on admission due to low EF, continued cardiac meds as above. BPs fluctuant but no further syncopal episodes of arrhythmia on monitor and able to dc on continued cardiac meds at dc Plan discharged home planned with family outpt cardiology follow up. Med compliance and CPAP to be continued to be recommended. Instructed to AVOID strenuous activities for now to prevent e xcessive stress on his heart Total Time Total Time Spent Total Time Spent (In Minutes): 45 Discharge Plan Discharge Items Patient Disposition: Home - Self-Care Reason For Visit: SYNCOPE Discharge Diagnosis: Syncope Goals: You have been hospitalized for an acute medical problem. During your stay at [facility], we have made an effort to correct the problem that brought you to the hospital while keeping you as comfortable as possible. Medications were used to bring your condition under control and your discharge instructions will include directions for any medications you should take after leaving the hospital. Please make sure you see your Primary Care Provider as part of your follow up plan. Activity: As commented below Non-emergency contact: Primary Care Provider and Administrative Specialist Call non-emergency contact if: you have any medication questions and your symptoms worsen Follow-up/Referrals: Samanta Jung MD [Primary Care Provider] - 12/14/23 11:30 am Bijan Pryor DO [Administrative Specialist] - Diet: Heart Healthy Addtl Attending Provider Instructions: You have been hospitalized following syncopal episode. Cardiology was consulted and your ICD was interrogated and showed an elevated heart rate with SVT that corresponded to the episode while officiating. Dr Ingram is alright with sending you home and you are to continue your usual cardiac medications. You already have repeat ultrasound/echocardiogram set up for 6 weeks from prior hospitalization to monitor your ejection fraction. Please monitor your activity level and avoid anything stressful or significant dehydration to prevent issues. Please continue to monitor your weights and follow up with [facility] at discharge. Please return to the ER with any chest pain, shortness of breath or any syncope likely symptoms as well as any symptoms concerning for you. It has been a pleasure being a part of the medical team providing for you while you have been in the hospital. Take care! Addtl Loin Puller Provider Instructions: Call 911 and go to the Emergency Room if: * You have tightness or pain in your chest that does not go away with rest or Nitroglycerin * You are very short of breath even with rest Call your doctor if any of the following symptoms or problems start or get worse: * Shortness of breath or difficulty breathing * Wake up at night short of breath * Chest pain * Cough * Swelling of your hands, fee, or legs * More fatigued or tired with your normal activity * Palpitations - sudden fast heart beats WEIGHT * Weigh yourself every morning after using the bathroom. * Use the same scale. * Wear the same amount of clothing. * Write your weight down on your chart. * Call your doctor if you gain more than 2-3 pounds in 1-2 days. MEDICATIONS * Use this discharge instruction sheet for instructions. * Take your medications at the time your doctor ordered. * Do not skip a dose of your medicines. * If you miss a dose of medicine, take as soon as possible, but DO NOT DOUBLE A DOSE. * Read your medicine information when you get home. * Know all of the side effects of your medicine. * Call your doctor's office if you have any side effects. * Be sure all of your doctors know what medicine and herbs you take (including cold, flu, and herbal medicine). * Pain Medicine: If you do not get relief from your pain, please call your doctor for help. Take the following with you to your follow-up doctor appointments: * Weight Chart * Medication List * List of questions Do not drink excessive alcohol, beer or wine. Pending Studies at Discharge: No Stand-Alone Forms: [employer], Smoking Cessation Medications and DC Order Prescriptions: Continued metformin 500 mg tablet 1,000 mg PO BID 90 Days Qty: 360 1RF metoprolol succinate 25 mg tablet extended release 24 hr 25 mg PO BID Qty: 180 1RF (DME) OneTouch Verio test strips Strip See Rx Instructions .ROUTE .MEDSUPPLY Qty: 100 3RF Dose Instruction: As directed Rx Instructions: Test blood sugar once daily (DME) lancets [OneTouch Delica Lancets] 33 gauge misc See Rx Instructions .ROUTE .MEDSUPPLY Qty: 100 Rx Instructions: test blood sugar once daily furosemide 40 mg tablet 40 mg PO BID Rx Instructions: Taken at 0700 and 1900 spironolactone 25 mg tablet 25 mg PO QAM digoxin 125 mcg tablet 125 mcg PO QAM rivaroxaban 20 mg tablet 20 mg PO HS potassium chloride 10 mEq tablet,ER particles/crystals 10 meq PO BID cyanocobalamin (vitamin B-12) [Vitamin B-12] 1,000 mcg Tablet 1,000 mcg PO QAM allopurinol 300 mg tablet 300 mg PO QAM Stelara 90 mg/mL syringe 90 mg SUBCUT UD Rx Instructions: Every 12 weeks cholecalciferol (vitamin D3) [Vitamin D3] 25 mcg (1,000 unit) tablet 5,000 unit PO QAM Entresto 24-26 mg Tablet 1 tab PO BID Qty: 60 2RF amiodarone 200 mg tablet 200 mg PO BID Qty: 1 0RF rosuvastatin 10 mg tablet 10 mg PO HS Jardiance 25 mg tablet 25 mg PO QAM Rx Instructions: PER 1ST magnesium oxide 400 mg magnesium tablet 400 mg PO QAM Discharge Orders: Discharge Order (Routine); Ordered 12/07/23 Ordered By: Claire Sampson Admission Data Admit Date/Time: 12/06/23 13:28 Attending Provider: Rakel Young Admit Provider: Tabatha Pena Primary Care Provider: Samanta Jung Other Providers: Tabatha Pena; Bijan Pryor Other Interventions: Discharge Summary Assessment (RN) Last Done: 12/07/23 13:57 Coding Level of Care Code 00669 INP/OBS DISCH >30 MIN Diagnoses Syncope and collapse R55 Dilated cardiomyopathy I42.0 Controlled type 2 diabetes mellitus E11.9 Atrial fibrillation I48.91 Obstructive sleep apnea G47.33 Hypertension I10
[2023-12-07] MEDS ORDERED: FUROSEMIDE 40 MG TAB PO SCH (17:00)
--- NOTE | 2023-12-08 22:08 | Electrocardiogram Report ---
Test Reason : Blood Pressure : / mmHG Vent. Rate : 096 BPM Atrial Rate : 000 BPM P-R Int : 000 ms QRS Dur : 130 ms QT Int : 394 ms P-R-T Axes : 000 -19 060 degrees QTc Int : 497 ms Atrial fibrillation Non-specific intra-ventricular conduction block Nonspecific T wave abnormality Abnormal ECG When compared with ECG of 10-NOV-2023 07:22, Atrial fibrillation has replaced Sinus rhythm Non-specific change in ST segment in Anterior leads Confirmed by Jared Gama ([id number]) on 12/08/2023 10:07:28 PM Referred By: REFERRED SELF Confirmed By:Jared Gama
== END 2023-12-07 15:53 | disposition home or self-care (01) ==
LOC: EDINP 10:29 → ED 10:29 → SUATTDRO 13:28 → 2N 14:44

== ENCOUNTER 2024-05-09 19:01 | Inpatient (IN) ==
--- NOTE | 2024-05-09 19:29 | Emergency Department Note ---
Impression & Plan Ventricular tachycardia, Defibrillator discharge, Syncope, Anemia ED Provider Note NAME: DELFINA FOWLER AGE: 49 SEX: M : 1975 ARRIVES VIA: Ambulance INFORMANT: Patient, EMS report ED PROVIDER(S): Jose Wayne MD CHIEF COMPLAINT: Syncope MEDICAL DECISION MAKING: Patient presented due to concern for syncope. IV was established and blood work was obtained. The patient did have his defibrillator pacemaker interrogated. Defibrillator pacemaker discussed with [employer] rep there was concern for 2 episodes of VT. ATP not sufficient and the patient did receive 2 separate shocks. Patient's blood shows a normal white count hemoglobin of 8.7. Patient has had a drop in his hemoglobin. No reported dark stools or bloody stools. Platelet count is unremarkable. Kidney function unremarkable. Potassium 3.4. Initial troponin of 27. Patient without active chest pain. Digoxin level noted to be subtherapeutic at 0.6. TSH is normal. BNP 1300. I did speak with the on-call information assurance officer Dr. Pryor who stated the patient could be started on amiodarone bolus and drip. These were ordered. I subsequently did speak with the patient informed him and family bedside of the findings. I also did speak the on-call hospitalist Dr. Denise the patient was admitted to the medicine service. Patient's chart signed on 05/11/24 instead of date of service as imaging reports were not crossing over. Critical Care: I have personally spent 40 minutes of critical care time in direct management of this patient. This includes bedside care, interpretation of diagnostic studies, and testing, discussion with consultants, patient, and family members, and other require inpatient management activities. This 40 minutes is in excess of all separately billable procedures. Discussion w/ other healthcare providers: Sunil Pryor cardiology [facility] Dr. Denise inpatient medicine service Prior /Outside records reviewed: I reviewed part of a cardiology visit note with a known history of idiopathic dilated cardiomyopathy severely reduced ejection fraction pacemaker defibrillator implantation paroxysmal A-fib Did review a prior visit note from advanced heart failure service from Dr. Gunderson from [facility]. No history of heart failure with reduced ejection fraction. This was to continue on Lasix 40 twice daily. There is issues with arrhythmia burden rather than worsening functional status and volume overload has a normal prior right heart cath numbers. Plan to see EP given recurrent A- fib may consider AV kuldip ablation. Patient does take digoxin and amiodarone Entresto Lasix metoprolol and Xarelto per review of his medication list. Differential diagnosis: Vasovagal event, dehydration, infection, hypoglycemia, electrolyte abnormalities, arrhythmia, pulmonary embolism, seizure among others were considered. Diagnostics, as interpreted by me: ECG: Sinus with first-degree AV block, rate of [address] wide QRS left bundle branch block pattern, left axis deviation no obvious STEMI Q-wave noted in lead III. Cardiac monitoring: An order was placed for continuous cardiac monitoring. The monitor shows a rate of 75 with sinus rhythm. Patient was placed on pulse oximetry Medical decision rules: none Imaging studies: I informally interpreted the patient's CXR does not show obvious pneumonia, cardiomegaly noted with formal report to follow. HPI: Patient presents due to concern for syncope that occurred around 6:40 PM. He reportedly was out to eat when this occurred. The patient did feel lightheaded and dizzy and prior. The patient denies feeling as though he received a defibrillator shock or had any palpitations. The patient states that he is compliant with his medications. No known sick contacts or recent travel. He does have some mild shortness of breath which may be new. The patient denies any chest pains. No upper or lower respiratory symptoms. The patient denies any leg swelling or calf pain. He is compliant with his medications including Xarelto. Patient denies any report that he had head strike. Patient denies any nausea vomiting or diarrhea. Patient denies any chest or abdominal pain. No back pain. Patient states that does have a slight headache that is frontal nonradiating. Patient denies any numbness tingling or focal weakness. No slurred speech or facial droop. The patient does follow with Dr. Gunderson with cardiology at [facility] and had followed prior with Dr. Johnson. Patient denies any recent changes in medications or missed doses. Patient states that he does follow a low-sodium diet. Patient denies any s being told that he had any seizure-like activity. The patient denies any tongue biting or incontinence. PAST MEDICAL HISTORY: See Below PAST SURGICAL HISTORY: See Below SOCIAL HISTORY: See Below HOME MEDICATIONS: See Below ALLERGIES: See Below VITALS: See Below PHYSICAL EXAMINATION: GENERAL: NAD, non-toxic. Wearing glasses. EYE EXAM: Normal conjunctiva. PERRL, no anisocoria and EOM's grossly intact w/o pain. Head: Normocephalic atraumatic. OROPHARYNX: Moist mucus membranes, grossly normal dentition. NECK: Trachea midline, no stridor. Supple, no nuchal rigidity, no adenopathy, non-tender. No signs of meningismus. FROM of the neck with good chin to chest and neck extension. LUNGS: Clear to auscultation. Normal chest wall mechanics. HEART: NSR, no MRG. ABDOMEN: Abdomen soft, non-tender, no masses, no rebound or guarding. BACK: No CVA TTP. SKIN: No rashes and no bruising. UPPER EXTREMITIES: Upper extremities are grossly normal. LOWER EXTREMITIES: Grossly normal, no edema. NEURO EXAM: A&O x3, cranial nerves II-XII grossly intact, normal speech, moves all 4 extremities. Past Med/Surg History Problem List ICD (implantable cardioverter-defibrillator) discharge Cardiogenic shock Acute on chronic heart failure with reduced ejection fraction and diastolic dysfunction Anemia (Acute) Syncope (Acute) Ventricular tachycardia (Acute) Hypokalemia Encounter for examination following treatment at hospital Syncope and collapse (Acute) Leukocytosis Abnormal CBC History of cardioversion History of implantable cardiac defibrillator (ICD) Vitamin D deficiency Hyperlipidemia Gout Dilated cardiomyopathy Controlled type 2 diabetes mellitus Congestive heart failure LV EF 15-20% on 11/04/23 echo Atrial fibrillation Stress fracture of foot Sinusitis Secondary hyperparathyroidism Psoriatic arthritis Obstructive sleep apnea Obesity (BMI 30.0-34.9) Mineral deficiency Long-term use of immunosuppressant medication Hypertension History of osteoporotic pathological fracture Cardiac arrhythmia Allergic rhinitis Acute on chronic combined systolic and diastolic CHF (congestive heart failure) Dilated cardiomyopathy Atrial fibrillation with controlled ventricular rate Acute on chronic heart failure with reduced ejection fraction and diastolic dysfunction Elevated LFTs Elevated troponin Cough Chest tightness SWAIN (dyspnea on exertion) Vitamin D deficiency Obesity Possible exposure to STD Encounter for physical examination related to employment Routine health maintenance (Chronic) HTN (hypertension), benign (Chronic) Hyperlipidemia (Chronic) Gout (Chronic) Type 2 diabetes mellitus (Chronic) CHF (congestive heart failure) (Chronic) Cardiomegaly (Chronic) Psoriasis (Chronic) Sinus tachycardia (Acute) Sinus tachycardia (Acute) Atrial fibrillation Atrial fibrillation with RVR (Acute) Defibrillator discharge (Acute) Rapid atrial fibrillation (Acute) Cardiomyopathy (Acute) Medical History Ventricular tachycardia, paroxysmal Surgical History S/P knee surgery Family History Other No significant family history Denies family history of Ovarian cancer Prostate cancer Myocardial infarction Breast cancer Colorectal cancer Social History Smoking Status: Never smoker Second Hand Exposure: No; Do You Dip or Chew Tobacco: No; Hx Alcohol Use: Yes Alcohol type: beer Hx Substance Use: No Preferred Language: Kenyan Communication Ability: Effective 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 Beliefs That Will Affect Care: None marital status: Single Current Living Situation: Family Current Living Situation Comment: patient lives with parents current occupational status: disabled How many Children do You have: 0 Feels Safe at Home: Yes Childhood Exposure to Second-Hand Smoke: No Diet: regular caffeine: Yes Dental Care, Regularly: Yes Physical Activity Frequency: Daily Seatbelt Use: always Sunscreen Use: No Assistive Devices: Glasses Allergies Allergies Allergy/AdvReac Type Severity Reaction Status Date / Time Penicillins Allergy Unknown Unknown Verified 05/09/24 19:50 Home Meds Home Medications Medication Instructions Recorded Confirmed digoxin 125 mcg (0.125 mg) tablet 125 mcg PO QAM 07/22/18 05/09/24 Previous Rx's Medication Instructions Recorded blood-glucose meter (OneTouch #1 ea 12/16/23 Verio Flex Start kit) lancets 33 gauge #100 ea 12/22/23 blood sugar diagnostic (OneTouch #100 ea 04/11/24 Verio test strips) Results & Data (ED) Vital Signs Vital Signs - 24 hr 05/09/24 19:06 05/09/24 19:15 05/09/24 19:17 Temperature 36.6 C Temperature Source Oral Pulse Rate 72 71 68 Pulse Rate [Apical] Pulse Rate from SpO2 Sensor 71 Respiratory Rate 19 22 Respiratory Effort / Characteristics Non-Labored Spontaneous Respiratory Depth Normal Respiratory Pattern Regular Blood Pressure 107/74 Blood Pressure [Right Arm] Blood Pressure Mean 85 Blood Pressure Mean [Right Arm] Pulse Oximetry 97 96 Oxygen Delivery Method Room Air Sepsis Recent Fever Within 48 Hours No Sepsis New/Unexplained Change in Mental Status No Sepsis Action Taken by Nursing No Action Required 05/09/24 19:17 05/09/24 19:17 05/09/24 19:27 Temperature Temperature Source Pulse Rate 73 Pulse Rate [Apical] 71 Pulse Rate from SpO2 Sensor 74 Respiratory Rate 20 23 Respiratory Effort / Characteristics Non-Labored Spontaneous Respiratory Depth Normal Respiratory Pattern Regular Blood Pressure Blood Pressure [Right Arm] Blood Pressure Mean Blood Pressure Mean [Right Arm] Pulse Oximetry 96 98 95 Oxygen Delivery Method Room Air Room Air Sepsis Recent Fever Within 48 Hours Sepsis New/Unexplained Change in Mental Status Sepsis Action Taken by Nursing 05/09/24 19:39 05/09/24 19:39 05/09/24 20:00 Temperature Temperature Source Pulse Rate 72 75 Pulse Rate [Apical] Pulse Rate from SpO2 Sensor 72 75 Respiratory Rate 17 23 Respiratory Effort / Characteristics Respiratory Depth Respiratory Pattern Blood Pressure 91/59 L Blood Pressure [Right Arm] Blood Pressure Mean 69 Blood Pressure Mean [Right Arm] Pulse Oximetry 96 99 95 Oxygen Delivery Method Room Air Sepsis Recent Fever Within 48 Hours Sepsis New/Unexplained Change in Mental Status Sepsis Action Taken by Nursing 05/09/24 20:18 05/09/24 20:24 05/09/24 20:30 Temperature Temperature Source Pulse Rate 75 77 77 Pulse Rate [Apical] Pulse Rate from SpO2 Sensor 75 77 75 Respiratory Rate 23 23 22 Respiratory Effort / Characteristics Respiratory Depth Respiratory Pattern Blood Pressure 92/56 L Blood Pressure [Right Arm] Blood Pressure Mean 68 Blood Pressure Mean [Right Arm] Pulse Oximetry 97 96 95 Oxygen Delivery Method Sepsis Recent Fever Within 48 Hours Sepsis New/Unexplained Change in Mental Status Sepsis Action Taken by Nursing 05/09/24 20:51 05/09/24 21:00 05/09/24 21:15 Temperature Temperature Source Pulse Rate 76 72 Pulse Rate [Apical] 74 Pulse Rate from SpO2 Sensor 76 72 Respiratory Rate 19 19 20 Respiratory Effort / Characteristics Non-Labored Spontaneous Respiratory Depth Normal Respiratory Pattern Regular Blood Pressure 85/54 L Blood Pressure [Right Arm] 85/54 L Blood Pressure Mean 64 Blood Pressure Mean [Right Arm] 64 Pulse Oximetry 95 98 97 Oxygen Delivery Method Room Air Sepsis Recent Fever Within 48 Hours Sepsis New/Unexplained Change in Mental Status Sepsis Action Taken by [facility] Medications Current Medication List: was personally reviewed by me Laboratory Data Attestation: I reviewed the patient's lab results. 05/10/24 11:05 05/10/24 06:41 Lab Results 05/09/24 05/09/24 Range/Units 19:10 21:16 WBC 9.89 (4.8-10.8) K/ul RBC 3.43 L (4.70-6.10) M/uL Hgb 8.7 L (14.0-18.0) g/dl Hct 27.1 L (42.0-52.0) % MCV 79.0 L (80.0-100.0) fL MCH 25.4 (25.0-34.0) pg MCHC 32.1 (32.0-36.0) g/dL RDW Std Deviation 44.1 (36.4-46.3) fL RDW Coeff of Ronaldo 15.3 H (11.5-14.5) % Plt Count 377 (130-400) K/uL MPV 9.1 L (9.4-12.4) fL Immature Gran % (Auto) 0.4 % Neut % (Auto) 70.3 % Lymph % (Auto) 19.1 % [place] % (Auto) 8.3 % Eos % (Auto) 1.4 % Baso % (Auto) 0.5 % Neut # (Auto) 6.95 H (1.40-6.50) K/uL Lymph # (Auto) 1.89 (1.20-3.40) K/uL [place] # (Auto) 0.82 H (0.11-0.59) K/uL Eos # (Auto) 0.14 (0.00-0.50) K/uL Baso # (Auto) 0.05 (0.00-0.20) K/uL Immature Gran # (Auto) 0.04 (0.01-0.20) K/uL Sodium 140 (136-145) mmol/L Potassium 3.4 L (3.5-5.1) mmol/L Chloride 105 (98-107) mmol/L Carbon Dioxide 27 (21-32) mmol/L Anion Gap 8 (3-11) BUN 23 (6-23) mg/dl Creatinine 1.03 (0.6-1.4) mg/dl Est Cr Clr Drug Dosing 106.2 ml/min eGFR 88.50 BUN/Creatinine Ratio 22.3 H (10-20) Glucose 124 H (70-99(Fasting)) mg/dl Calcium 9.1 (8.6-10.3) mg/dl Phosphorus 4.0 (2.5-4.9) mg/dl Magnesium 2.2 (1.7-2.4) mg/dl Total Bilirubin 0.5 (0.2-1.0) mg/dl AST 14 (13-39) U/L ALT 14 (7-52) U/L Alkaline Phosphatase 76 (34-104) U/L Troponin I High Sens 27.6 H 234.7 H* D (0-20) pg/ml B-Natriuretic Peptide 1303 H (0-100) pg/ml Total Protein 6.9 (6.0-8.3) gm/dl Albumin 4.1 (3.4-5.0) gm/dl Globulin 2.8 (2.5-4.0) gm/dl Albumin/Globulin Ratio 1.5 (0.9-2) TSH 2.688 (0.300-4.500) uIu/ml Digoxin 0.6 L (0.8-2.0) ng/ml Administered Medications Discontinued Medications Allopurinol (Allopurinol 300 Mg Tab) 300 mg PO [facility] Stop: 06/09/24 08:59 Last Admin: 05/10/24 14:44 Dose: Not Given Documented By: [facility] Cyanocobalamin (Cyanocobalamin (B-12) 500 Mcg Tablet) [facility] [place] Stop: 06/09/24 08:59 Last Admin: 05/10/24 14:45 Dose: Not Given Documented By: MTP Fentanyl Citrate (Fentanyl Citrate 2,500 Mcg/250 Ml Bag) Confirm Administered Dose 2,500 mcg IV .STK-MED ONE Stop: 05/10/24 08:43 Last Admin: 05/10/24 10:48 Dose: Not Given Documented By: MTP Furosemide (Furosemide 40 Mg/4 Ml Vial) 40 mg IV ONE ONE Stop: 05/10/24 07:50 Last Admin: 05/10/24 08:03 Dose: 40 mg Documented By: Furosemide (Furosemide 40 Mg/4 Ml Vial) Confirm Administered Dose 40 mg IV .STK- MED ONE Stop: 05/10/24 09:56 Last Admin: 05/10/24 10:51 Dose: Not Given Documented By: MINERVA Furosemide (Furosemide 40 Mg/4 Ml Vial) 40 mg IV ONE ONE Stop: 05/10/24 10:00 Last Admin: 05/10/24 13:33 Dose: 40 mg Documented By: MINERVA Furosemide (Furosemide 40 Mg/4 Ml Vial) Confirm Administered Dose 40 mg IV .STK- MED ONE Stop: 05/10/24 13:23 Last Admin: 05/10/24 13:34 Dose: Not Given Documented By: MINERVA Amiodarone HCl/Dextrose (Nexterone / D5w) 150 mg in 100 mls @ 600 mls/hr IV NOW STA Stop: 05/09/24 20:52 Last Infusion: 05/09/24 21:05 Dose: Infused Documented By: MONTY Co-signed By: LOUISE Admin: 05/09/24 20:54 Dose: 600 mls/hr Documented By: MONTY Co-signed By: CLARE Potassium Chloride (K Jerry / Wtr) 10 meq in 100 mls @ 100 mls/hr IV ONE ONE; Protocol Stop: 05/09/24 22:51 Last Infusion: 05/09/24 23:17 Dose: Infused Documented By: Admin: 05/09/24 22:23 Dose: 100 mls/hr Documented By: CLARE Amiodarone HCl/Dextrose (Nexterone / D5w) 360 mg in 200 mls @ 33.333 mls/hr IV ONE ONE Stop: 05/10/24 04:11 Last Infusion: 05/10/24 03:32 Dose: Infused Documented By: ALLY Co-signed By: CASS Admin: 05/09/24 22:24 Dose: 1 mg/min, 33.3 mls/hr Documented By: CLARE Co-signed By: SHMUEL Amiodarone HCl/Dextrose (Nexterone / D5w) 360 mg in 200 mls @ 16.667 mls/hr IV .Q12H [facility] Stop: 06/09/24 04:14 Last Admin: 05/10/24 03:32 Dose: 0.5 mg/min, 16.7 mls/hr Documented By: ALLY Co-signed By: CASS Propofol (Diprivan) 1,000 mg in 100 mls @ 12.504 mls/hr IV .Q8H [facility]; Protocol Stop: 05/13/24 08:59 Last Titration: 05/10/24 14:58 Dose: Infused Documented By: Admin: 05/10/24 10:49 Dose: 20 mcg/kg/min, 12.5 mls/hr Documented By: MTP Co-signed By: YAMINI Fentanyl Citrate (Fentanyl Citrate) 2,500 mcg in 250 mls @ 0 mls/hr IV .Q0M [facility]; Protocol Stop: 05/24/24 09:14 Last Titration: 05/10/24 14:58 Dose: 0 mcg/hr, 0 mls/hr Documented By: MTP Co-signed By: YAMINI Admin: 05/10/24 10:50 Dose: 75 mcg/hr, 7.5 mls/hr Documented By: MTP Co-signed By: YAMINI Norepinephrine Bitartrate (Levophed/D5w) 4 mg in 250 mls @ 19.538 mls/hr IV .[id number] [facility]; Protocol Stop: 06/09/24 09:14 Last Admin: 05/10/24 10:50 Dose: Not Given Documented By: MTP Vasopressin 20 units/ Sodium (Chloride) 101 mls @ 9.09 mls/hr IV .[id number] [facility]; Protocol Stop: 06/09/24 12:29 Last Admin: 05/10/24 13:24 Dose: 0.03 unit/min, 9.1 mls/hr Documented By: MTP Co-signed By: EDUARDA Hydrocortisone Sodium (Succinate 100 mg/ Syringe) 2 mls @ 4 mls/min IV NOW STA Stop: 05/10/24 13:09 Last Admin: 05/10/24 14:16 Dose: 4 mls/min Documented By: MINERVA Dobutamine HCl/Dextrose () 1,000 mg in 250 mls @ 3.908 mls/hr IV .Q24H [facility]; Protocol Stop: 06/09/24 13:14 Last Admin: 05/10/24 13:19 Dose: 2.5 mcg/kg/min, 3.9 mls/hr Documented By: MTP Co-signed By: EDUARDA Magnesium Oxide (Magnesium Oxide 400 Mg Tab) 400 mg PO QAM [facility] Stop: 06/09/24 08:59 Last Admin: 05/10/24 14:45 Dose: Not Given Documented By: MTP Miscellaneous (Rapid Sequence Induction Bag) Confirm Administered Dose 1 each N/A .STK-MED ONE Stop: 05/10/24 08:36 Last Admin: 05/10/24 08:59 Dose: 1 each Documented By: LORIE Miscellaneous (Icu Protocol For Hyperglycemia) 1 each N/A Q6 [facility] Stop: 05/12/24 13:29 Last Admin: 05/10/24 14:16 Dose: 1 each Documented By: MINERVA Morphine Sulfate (Morphine Sulfate 2 Mg/Ml Carp) Confirm Administered Dose 2 mg .ROUTE .STK-MED ONE Stop: 05/10/24 08:05 Last Admin: 05/10/24 08:09 Dose: 2 mg Documented By: TIARA Nitroglycerin (Nitroglycerin 2% Ointment 30gm Tube) Confirm Administered Dose 18 inch EXT .STK-MED ONE Stop: 05/10/24 08:11 Last Admin: 05/10/24 08:10 Dose: 18 inch Documented By: TIARA Norepinephrine Bitartrate (Norepinephrine/D5w 4 Mg/250 Ml) Confirm Administered Dose 4 mg IV .STK-MED ONE Stop: 05/10/24 08:37 Last Admin: 05/10/24 13:34 Dose: Not Given Documented By: MINERVA Potassium Chloride (Potassium Chloride Crtab 20 Meq Tabcr) 40 meq PO NOW [facility] Stop: 05/09/24 21:53 Last Admin: 05/09/24 22:20 Dose: 40 meq Documented By: CLARE Potassium Chloride (Potassium Chloride 10 Meq Tabcr) 10 meq PO BID [facility] Stop: 06/09/24 08:59 Last Admin: 05/10/24 14:45 Dose: Not Given Documented By: MINERVA Potassium Chloride (Potassium Chloride Crtab 20 Meq Tabcr) 40 meq PO NOW STA Stop: 05/09/24 23:16 Last Admin: 05/09/24 23:36 Dose: 40 meq Documented By: ALLY Propofol (Propofol Iv Emulsion 10 Mg/Ml 100 Ml Vial) Confirm Administered Dose 1,000 mg IV .STK-MED ONE Stop: 05/10/24 08:44 Last Admin: 05/10/24 10:49 Dose: Not Given Documented By: MINERVA Rivaroxaban (Rivaroxaban 20 Mg Tab) 20 mg PO HS [facility] Stop: 06/08/24 23:44 Last Admin: 05/09/24 23:44 Dose: 20 mg Documented By: ALLY Rocuronium [place] (Rocuronium [place] 10 Mg/Ml 5 Ml Vial) 60 mg IV ONCE STA Stop: 05/10/24 13:09 Last Admin: 05/10/24 13:23 Dose: 60 mg Documented By: MTP Co-signed By: EDUARDA Sodium Bicarbonate (Sodium Bicarb 8.4% Inj 50 Meq/50 Ml Syr) 50 meq IV NOW ONE Stop: 05/10/24 10:16 Last Admin: 05/10/24 10:47 Dose: 50 meq Documented By: MTP Vitamin D (Cholecalciferol 125 Mcg (5,000 Units) Tab) 125 mcg PO QAM [facility] Stop: 06/09/24 08:59 Last Admin: 05/10/24 14:44 Dose: Not Given Documented By: [facility] Imaging Data Radiologist's Impression: Chest X-Ray 05/09/24 19:29 Exam(s): XR CXR 1 VIEW EXAM: XR Chest, 1 View CLINICAL HISTORY: Reason for exam: SOB. TECHNIQUE: Frontal view of the chest. COMPARISON: 04/05/24 FINDINGS: Lungs: There is mild pulmonary vascular congestion. No consolidation. Pleural space: Unremarkable. No pneumothorax. Heart: Moderate cardiomegaly. Mediastinum: Unremarkable. Normal mediastinal contour. Bones/joints: Unremarkable. No acute fracture. Tubes, lines and devices: Defibrillator lead seen projecting over the right ventricle. IMPRESSION: Mild pulmonary vascular congestion Electronically signed by: Dario Magaña MD 05/09/24 20:20 PM Discharge Plan Visit Data Chief Complaint: Syncope Stated Complaint: SYNCOPE ED Provider: Jose Wayne Discharge Problem: Ventricular tachycardia, Defibrillator discharge, Syncope, Anemia Patient Disposition: Admitted As Inpatient Discharge Instructions Interventions: ED Discharge Assessment Last Done: 05/09/24 22:38 Discharge Problem: Syncope Qualifiers: Syncope type: unspecified Qualified Code(s): R55 - Syncope and collapse Anemia Qualifiers: Anemia type: unspecified type Qualified Code(s): D64.9 - Anemia, unspecified
[2024-05-09 19:47] LABS: Basophils # (auto) 0.05 K/uL (0.00-0.20); Basophils % (auto) 0.5 %; Eosinophils # (auto) 0.14 K/uL (0.00-0.50); Eosinophils % (auto) 1.4 %; Hematocrit (blood only) 27.1 % (42.0-52.0); Hemoglobin 8.7 g/dl (14.0-18.0); Immature Granulocytes # (auto) 0.04 K/uL (0.01-0.20); Immature Granulocytes % (auto) 0.4 %; Lymphocytes # (auto) 1.89 K/uL (1.20-3.40); Lymphocytes % (auto) 19.1 %; Mean Corpuscular Hemoglobin 25.4 pg (25.0-34.0); Mean Corpuscular Hgb Conc 32.1 g/dL (32.0-36.0); Mean Platelet Volume 9.1 fL (9.4-12.4); Monocytes # (auto) 0.82 K/uL (0.11-0.59); Monocytes % (auto) 8.3 %; Neutrophils # (auto) 6.95 K/uL (1.40-6.50); Neutrophils % (auto) 70.3 %; Platelet Count 377 K/uL (130-400); RDW Coefficient of Variation 15.3 % (11.5-14.5); RDW Standard Deviation 44.1 fL (36.4-46.3); Red Blood Count 3.43 M/uL (4.70-6.10); White Blood Count 9.89 K/ul (4.8-10.8)
[2024-05-09 19:58] LABS: Albumin Globulin Ratio 1.5 (0.9-2); Albumin Level 4.1 gm/dl (3.4-5.0); BUN Creatinine Ratio 22.3 (10-20); Bilirubin,Total 0.5 mg/dl (0.2-1.0); Calcium 9.1 mg/dl (8.6-10.3); Creatinine Clr Calc Pharmacy 106.2 ml/min; Globulin 2.8 gm/dl (2.5-4.0); Magnesium 2.2 mg/dl (1.7-2.4); Potassium 3.4 mmol/L (3.5-5.1); Total Protein 6.9 gm/dl (6.0-8.3)
[2024-05-09 20:04] LABS: Troponin I High Sensitivity 27.6 pg/ml (0-20)
[2024-05-09 20:13] LABS: Thyroid Stimulating Hormone 2.688 uIu/ml (0.300-4.500)
[2024-05-09] MEDS ORDERED: 0.2 MICRON FILTER SET 1 EACH IV ONE (20:43)
[2024-05-09] MEDS: AMIODARONE / D5W 150 MG/100 ML BAG IV STA (20:54)
--- NOTE | 2024-05-09 21:39 | History & Physical Report ---
Date of Service May 09, 2024 Assessment & Plan (1) Syncope and collapse: (2) Defibrillator discharge: (3) History of implantable cardiac defibrillator (ICD): (4) History of cardioversion: (5) Hyperlipidemia: (6) Dilated cardiomyopathy: (7) Controlled type 2 diabetes mellitus: (8) Psoriatic arthritis: (9) Hypokalemia: (10) Congestive heart failure: (11) Atrial fibrillation: (12) Long-term use of immunosuppressant medication: (13) HTN (hypertension), benign: Plan Ventricular tachycardia/defibrillator discharge/atrial fibrillation/dilated cardiomyopathy with EF 15-20%/chronic anticoagulation- Continue amiodarone drip status post bolus per protocol begun in the ED Hold oral amiodarone, furosemide, spironolactone, Entresto overnight, due to systolic blood pressure in the low 80s and MAP in the low 60s, likely can restart in the a.m. Continue metoprolol succinate and digoxin Continue mag oxide and potassium chloride Consult cardiology Dr. Pryor Hypokalemia- Potassium 3.4 on admission Given Klor-Con 40 mEq p.o. by the ED, and attempted a K rider, which the patient did not tolerate Discontinuing K rider, and give additional Klor-Con 40 mill equivalents p.o. this evening, and then recheck laboratories in the a.m. Anemia- Hemoglobin 8.7 on admission On 12/07/2023 was 14.8 On 04/05/2024 was 11.2 Hemoccult stools May be secondary to Xarelto Repeat laboratories in the a.m. Diabetes mellitus- Hold Jardiance and metformin Place on Accu-Cheks with NovoLog SSI History of Present Illness Chief Complaint: Patient presents to the emergency department via ambulance due to syncope, with reported defibrillator firing, with interrogation of pacer defibrillator interpreted by cardiology Primary Care Provider: Samanta Jung MD The patient is a 49-year-old male with past medical history including presence of ICD, history of cardioversion, hyperlipidemia, gout, dilated cardiomyopathy, atrial fibrillation, diabetes mellitus type 2, secondary hyperparathyroidism, psoriatic arthritis on Stelara, CHF, ventricular tachycardia with history of defibrillator discharge, and HF fibrillation with RVR. The patient presents to the emergency department for syncopal episode. His defibrillator pacemaker was interrogated in the emergency department. Patient received amiodarone 150 mg IV bolus, and then was started on amiodarone drip per protocol. He will be admitted to the PCU for continued monitoring, and seen by Cardiology in the a.m. Allergies Allergy/AdvReac Type Severity Reaction Status Date / Time Penicillins Allergy Unknown Unknown Verified 05/09/24 19:50 Home Medications Medication Instructions Recorded Confirmed Type digoxin 125 mcg (0.125 mg) tablet 125 mcg PO QAM 07/22/18 05/09/24 History furosemide 40 mg tablet 40 mg PO BID 07/22/18 05/09/24 History rivaroxaban 20 mg tablet 20 mg PO HS 07/22/18 05/09/24 History spironolactone 25 mg tablet 25 mg PO QAM 07/22/18 05/09/24 History allopurinol 300 mg tablet 300 mg PO QAM 10/28/21 05/09/24 History cyanocobalamin (vitamin B-12) 1,000 mcg PO QAM 10/28/21 05/09/24 History 1,000 mcg tablet (Vitamin B-12) ustekinumab 90 mg/mL subcutaneous 90 mg subcut UD 10/28/21 05/09/24 History syringe (Stelara) cholecalciferol (vitamin D3) 25 5,000 unit PO QAM 02/07/22 05/09/24 History mcg (1,000 unit) tablet (Vitamin D3) potassium chloride 10 mEq 10 meq PO BID 04/21/22 05/09/24 History tablet,extended release(part/cryst) amiodarone 200 mg tablet 200 mg PO BID #1 tab 11/11/23 05/09/24 Rx metoprolol succinate 25 mg 25 mg PO BID #180 tabs 12/03/23 05/09/24 Rx tablet,extended release 24 hr empagliflozin 25 mg tablet 25 mg PO QAM 12/06/23 05/09/24 History (Jardiance) magnesium oxide 400 mg PO QAM 12/06/23 05/09/24 History rosuvastatin 10 mg tablet 10 mg PO HS 12/06/23 05/09/24 History blood-glucose meter (OneTouch #1 ea 12/16/23 Rx Verio Flex Start kit) lancets 33 gauge #100 ea 12/22/23 Rx blood sugar diagnostic (OneTouch #100 ea 04/11/24 Rx Verio test strips) metformin 500 mg tablet 1,000 mg (2 x 500 mg) PO BID 90 04/12/24 05/09/24 Rx days #360 tabs sacubitril 49 mg-valsartan 51 mg 1 tab PO BID 05/09/24 05/09/24 History tablet (Entresto) Past Med/Surg History Problem List (Updated 05/10/24 @ 00:10 by Juanito Morales MD) Hypokalemia Encounter for examination following treatment at hospital Syncope and collapse (Acute) Leukocytosis Abnormal CBC History of cardioversion History of implantable cardiac defibrillator (ICD) Vitamin D deficiency Hyperlipidemia Gout Dilated cardiomyopathy Controlled type 2 diabetes mellitus Congestive heart failure LV EF 15-20% on 11/04/23 echo Atrial fibrillation Stress fracture of foot Sinusitis Secondary hyperparathyroidism Psoriatic arthritis Obstructive sleep apnea Obesity (BMI 30.0-34.9) Mineral deficiency Long-term use of immunosuppressant medication Hypertension History of osteoporotic pathological fracture Cardiac arrhythmia Allergic rhinitis Acute on chronic combined systolic and diastolic CHF (congestive heart failure) Dilated cardiomyopathy Atrial fibrillation with controlled ventricular rate Acute on chronic heart failure with reduced ejection fraction and diastolic dysfunction Elevated LFTs Elevated troponin Cough Chest tightness SWAIN (dyspnea on exertion) Vitamin D deficiency Obesity Possible exposure to STD Encounter for physical examination related to employment Routine health maintenance (Chronic) HTN (hypertension), benign (Chronic) Hyperlipidemia (Chronic) Gout (Chronic) Type 2 diabetes mellitus (Chronic) CHF (congestive heart failure) (Chronic) Cardiomegaly (Chronic) Psoriasis (Chronic) Sinus tachycardia (Acute) Sinus tachycardia (Acute) Atrial fibrillation Atrial fibrillation with RVR (Acute) Defibrillator discharge (Acute) Rapid atrial fibrillation (Acute) Cardiomyopathy (Acute) Medical History Ventricular tachycardia, paroxysmal Surgical History S/P knee surgery Family History Other No significant family history Denies family history of Ovarian cancer Prostate cancer Myocardial infarction Breast cancer Colorectal cancer Social History Smoking Status: Never smoker Second Hand Exposure: No; Do You Dip or Chew Tobacco: No; Hx Alcohol Use: Yes Alcohol type: beer Hx Substance Use: No Preferred Language: Slovenian Communication Ability: Effective Supervising Producer Required: No Beliefs That Will Affect Care: None marital status: Single Current Living Situation: Family Current Living Situation Comment: patient lives with parents current occupational status: disabled How many Children do You have: 0 Feels Safe at Home: Yes Childhood Exposure to Second-Hand Smoke: No Diet: regular caffeine: Yes Dental Care, Regularly: Yes Physical Activity Frequency: Daily Seatbelt Use: always Sunscreen Use: No Assistive Devices: Glasses Review of Systems Review of Systems: The patient denies chest pain, palpitations, shortness of breath, dyspnea on exertion, cough, lower extremity swelling, sore throat, fevers, chills, sweats, weight change, fatigue, nausea, vomiting, diarrhea , constipation, abdominal pain, pelvic pain, blood in urine or stool, dysuria, urinary frequency or urgency, lightheadedness, dizziness, headache, rash, abnormal bruising or bleeding, imbalance, focal or generalized weakness, numbness or tingling in arms or legs, generalized arthralgias or myalgias, back or neck pain, or night sweats. The review of systems is otherwise negative other than for that already noted above, and at least 10 systems have been reviewed. Physical Exam Physical Exam: The patient is awake, alert and oriented 3, well developed and well nourished, normocephalic and atraumatic, lying in bed and in no acute distress. HEENT--PERRL, EOMI, mucous membranes and oropharynx mildly dry. Neck--supple. No JVD. No bruits. Thyroid normal, trachea midline, no adenopathy. Heart--normal S1 and S2. No murmurs, rubs or gallops. Lungs--clear bilaterally, no respiratory distress, no accessory muscle use. Abdomen--normal bowel sounds and soft. Nontender. Nondistended, no hernias or masses, no organomegaly. Extremities--no cyanosis or clubbing. No edema. There are good distal pulses b/l. Dermatologic--normal skin turgor, normal color, no abnormal lymph nodes, no rash. Neurologic--cranial nerves II through XII grossly intact. Rheumatologic--normal range of motion. Psychiatric--normal affect. Results & Data Results & Data Vital Signs (Past 12 Hours) Vital Signs Temp Pulse Pulse Resp BP BP Pulse Ox 05/09/24 21:15 72 20 85/54 L 97 05/09/24 21:00 74 19 85/54 L 98 05/09/24 20:51 76 19 95 05/09/24 20:30 77 22 92/56 L 95 05/09/24 20:24 77 23 96 05/09/24 20:18 75 23 97 05/09/24 20:00 75 23 91/59 L 95 05/09/24 19:39 72 17 99 05/09/24 19:39 96 05/09/24 19:27 73 23 95 05/09/24 19:17 71 20 98 05/09/24 19:17 96 05/09/24 19:17 36.6 C 68 22 107/74 96 05/09/24 19:15 71 19 97 05/09/24 19:06 72 O2 Del Method 05/09/24 21:15 05/09/24 21:00 Room Air 05/09/24 20:51 05/09/24 20:30 05/09/24 20:24 05/09/24 20:18 05/09/24 20:00 05/09/24 19:39 05/09/24 19:39 Room Air 05/09/24 19:27 05/09/24 19:17 Room Air 05/09/24 19:17 Room Air 05/09/24 19:17 Room Air 05/09/24 19:15 05/09/24 19:06 Laboratory Results Laboratory Results WBC 9.89 K/ul (4.8-10.8) 05/09/24 19:10 RBC 3.43 M/uL (4.70-6.10) L 05/09/24 19:10 Hgb 8.7 g/dl (14.0-18.0) L 05/09/24 19:10 Hct 27.1 % (42.0-52.0) L 05/09/24 19:10 MCV 79.0 fL (80.0-100.0) L 05/09/24 19:10 MCH 25.4 pg (25.0-34.0) 05/09/24 19:10 MCHC 32.1 g/dL (32.0-36.0) 05/09/24 19:10 RDW Std Deviation 44.1 fL (36.4-46.3) 05/09/24 19:10 RDW Coeff of Ronaldo 15.3 % (11.5-14.5) H 05/09/24 19:10 Plt Count 377 K/uL (130-400) 05/09/24 19:10 MPV 9.1 fL (9.4-12.4) L 05/09/24 19:10 Immature Gran % (Auto) 0.4 % 05/09/24 19:10 Neut % (Auto) 70.3 % 05/09/24 19:10 Lymph % (Auto) 19.1 % 05/09/24 19:10 Dickinson % (Auto) 8.3 % 05/09/24 19:10 Eos % (Auto) 1.4 % 05/09/24 19:10 Baso % (Auto) 0.5 % 05/09/24 19:10 Neut # (Auto) 6.95 K/uL (1.40-6.50) H 05/09/24 19:10 Lymph # (Auto) 1.89 K/uL (1.20-3.40) 05/09/24 19:10 Dickinson # (Auto) 0.82 K/uL (0.11-0.59) H 05/09/24 19:10 Eos # (Auto) 0.14 K/uL (0.00-0.50) 05/09/24 19:10 Baso # (Auto) 0.05 K/uL (0.00-0.20) 05/09/24 19:10 Immature Gran # (Auto) 0.04 K/uL (0.01-0.20) 05/09/24 19:10 Sodium 140 mmol/L (136-145) 05/09/24 19:10 Potassium 3.4 mmol/L (3.5-5.1) L 05/09/24 19:10 Chloride 105 mmol/L (98-107) 05/09/24 19:10 Carbon Dioxide 27 mmol/L (21-32) 05/09/24 19:10 Anion Gap 8 (3-11) 05/09/24 19:10 BUN 23 mg/dl (6-23) 05/09/24 19:10 Creatinine 1.03 mg/dl (0.6-1.4) 05/09/24 19:10 Est Cr Clr Drug Dosing 106.2 ml/min 05/09/24 19:10 eGFR 88.50 05/09/24 19:10 BUN/Creatinine Ratio 22.3 (10-20) H 05/09/24 19:10 Glucose 124 mg/dl (70-99(Fasting)) H 05/09/24 19:10 Calcium 9.1 mg/dl (8.6-10.3) 05/09/24 19:10 Phosphorus 4.0 mg/dl (2.5-4.9) 05/09/24 19:10 Magnesium 2.2 mg/dl (1.7-2.4) 05/09/24 19:10 Total Bilirubin 0.5 mg/dl (0.2-1.0) 05/09/24 19:10 AST 14 U/L (13-39) 05/09/24 19:10 ALT 14 U/L (7-52) 05/09/24 19:10 Alkaline Phosphatase 76 U/L (34-104) 05/09/24 19:10 Troponin I High Sens 234.7 pg/ml (0-20) H* D 05/09/24 21:16 B-Natriuretic Peptide 1303 pg/ml (0-100) H 05/09/24 19:10 Total Protein 6.9 gm/dl (6.0-8.3) 05/09/24 19:10 Albumin 4.1 gm/dl (3.4-5.0) 05/09/24 19:10 Globulin 2.8 gm/dl (2.5-4.0) 05/09/24 19:10 Albumin/Globulin Ratio 1.5 (0.9-2) 05/09/24 19:10 TSH 2.688 uIu/ml (0.300-4.500) 05/09/24 19:10 Digoxin 0.6 ng/ml (0.8-2.0) L 05/09/24 19:10 Code Status & VTE Plan Code Status Full code VTE Prophylaxis Plan VTE Prophylaxis will be ordered: Yes PG Care Time/CCT Total # of Minutes Spent Total Time Spent with Patient: Total time spent is greater than 50% in coordination of care (as documented) at patient's floor/unit and/or counseling patient: Coding Level of Care Code 68981 INT INP/OBS CARE MIN Diagnoses Syncope and collapse R55 Defibrillator discharge Z45.02 History of implantable cardiac defibrillator (ICD) Z95.810 History of cardioversion Z92.89 Hyperlipidemia E78.5 Dilated cardiomyopathy I42.0 Controlled type 2 diabetes mellitus E11.9 Psoriatic arthritis L40.50 Hypokalemia E87.6 Congestive heart failure I50.9 Permanent atrial fibrillation I48.21 Atrial fibrillation type: permanent Long-term use of immunosuppressant medication Z79.60 HTN (hypertension), benign I10 (11) Atrial fibrillation Atrial fibrillation type: permanent Qualified Code(s): I48.21 - Permanent atrial fibrillation
[2024-05-09] MEDS ORDERED: AMIODARONE IV BOLUS & DRIP IV STA (22:00)
[2024-05-09] MEDS ORDERED: STAT IV Infusion **Titration per Protocol STA (22:00)
[2024-05-09] MEDS ORDERED: AMIODARONE / D5W 150 MG/100 ML BAG IV STA (22:00)
[2024-05-09] MEDS ORDERED: 0.2 MICRON FILTER SET 1 EACH IV STA (22:00)
[2024-05-09] MEDS: POTASSIUM CHLORIDE CRTAB 20 MEQ TABCR PO STA ×2 (22:20→23:36)
[2024-05-09] MEDS: POTASSIUM CHLORIDE / WTR 10 MEQ/100 ML PLCT IV ONE (22:23)
[2024-05-09] MEDS: AMIODARONE / D5W 360 MG/200 ML BAG IV ONE (22:24)
[2024-05-09] MEDS ORDERED: ACETAMINOPHEN 325 MG TAB PO PRN (23:09)
[2024-05-09] MEDS: RIVAROXABAN 20 MG TAB PO SCH (23:44)
[2024-05-10] MEDS: AMIODARONE / D5W 360 MG/200 ML BAG IV SCH (03:32)
[2024-05-10 07:04] LABS: Basophils # (auto) 0.03 K/uL (0.00-0.20); Basophils % (auto) 0.3 %; Eosinophils # (auto) 0.08 K/uL (0.00-0.50); Eosinophils % (auto) 0.8 %; Hematocrit (blood only) 27.5 % (42.0-52.0); Hemoglobin 8.5 g/dl (14.0-18.0); Immature Granulocytes # (auto) 0.03 K/uL (0.01-0.20); Immature Granulocytes % (auto) 0.3 %; Lymphocytes # (auto) 1.47 K/uL (1.20-3.40); Lymphocytes % (auto) 15.4 %; Mean Corpuscular Hemoglobin 24.6 pg (25.0-34.0); Mean Corpuscular Hgb Conc 30.9 g/dL (32.0-36.0); Mean Corpuscular Volume 79.7 fL (80.0-100.0); Mean Platelet Volume 9.2 fL (9.4-12.4); Monocytes % (auto) 7.3 %; Neutrophils # (auto) 7.23 K/uL (1.40-6.50); Neutrophils % (auto) 75.9 %; Platelet Count 342 K/uL (130-400); RDW Coefficient of Variation 15.3 % (11.5-14.5); RDW Standard Deviation 44.4 fL (36.4-46.3); Red Blood Count 3.45 M/uL (4.70-6.10); White Blood Count 9.54 K/ul (4.8-10.8)
[2024-05-10 07:05] VITALS: TEMP 98.1
[2024-05-10 07:32] LABS: Albumin Globulin Ratio 1.7 (0.9-2); Bilirubin,Total 0.4 mg/dl (0.2-1.0); Creatinine Clr Calc Pharmacy 123.4 ml/min; Globulin 2.4 gm/dl (2.5-4.0); Magnesium 2.3 mg/dl (1.7-2.4); Potassium 4.3 mmol/L (3.5-5.1); Total Protein 6.4 gm/dl (6.0-8.3)
--- NOTE | 2024-05-10 07:43 | Hospitalist Progress Note ---
Date of Service May 10, 2024 Assessment & Plan (1) Syncope and collapse: Plan: Ventricular tachycardia/defibrillator discharge/atrial fibrillation/dilated non ischemic cardiomyopathy with EF 15-20%/chronic anticoagulation- HFrEF- elevated bnp but in typical range elevated troponin likely secondary to defibrillation Continue amiodarone drip status post bolus per protocol begun in the ED Hold oral amiodarone, furosemide, spironolactone, Entresto overnight, due to low blood pressure Continue metoprolol succinate and digoxin digoxin low on admission Continue mag oxide and potassium chloride Consult cardiology Dr. Pryor (2) Controlled type 2 diabetes mellitus: Plan: Diabetes mellitus- Hold Jardiance and metformin Place on Accu-Cheks with NovoLog SSI (3) Psoriatic arthritis: Plan: long tern use of immunosupressant agent (4) Hyperlipidemia: (5) Anemia: Plan: Anemia-Hemoglobin 8.7 on admission, microcytic On 04/05/2024 was 11.2 Hemoccult stools May be secondary to Xarelto Admission and Anticipated Discharge Date Admission Date: May 09, 2024 Results & Data Results & Data Vital Signs (Past 12 Hours) Vital Signs Temp Pulse Pulse Resp BP BP BP 05/10/24 07:04 98.1 F 77 18 109/69 05/10/24 04:56 97.7 F 77 16 97/62 L 05/09/24 23:28 82 05/09/24 23:11 97.9 F 78 18 105/71 05/09/24 22:29 74 17 111/68 05/09/24 21:15 72 20 85/54 L 05/09/24 21:00 74 19 85/54 L 05/09/24 20:51 76 19 05/09/24 20:30 77 22 92/56 L 05/09/24 20:24 77 23 05/09/24 20:18 75 23 05/09/24 20:00 75 23 91/59 L 05/09/24 19:39 72 17 05/09/24 19:39 Pulse Ox O2 Del Method 05/10/24 07:04 91 Room Air 05/10/24 04:56 93 Room Air 05/09/24 23:28 05/09/24 23:11 97 Room Air 05/09/24 22:29 98 Room Air 05/09/24 21:15 97 05/09/24 21:00 98 Room Air 05/09/24 20:51 95 05/09/24 20:30 95 05/09/24 20:24 96 05/09/24 20:18 97 05/09/24 20:00 95 05/09/24 19:39 99 05/09/24 19:39 96 Room Air PG Care Time/CCT Total # of Minutes Spent Total Time Spent with Patient: Total time spent is greater than 50% in coordination of care (as documented) at patient's floor/unit and/or counseling patient: Coding Diagnoses Syncope and collapse R55 Controlled type 2 diabetes mellitus E11.9 Psoriatic arthritis L40.50 Hyperlipidemia E78.5 Anemia D64.9 Anemia type: unspecified type (5) Anemia Anemia type: unspecified type Qualified Code(s): D64.9 - Anemia, unspecified
[2024-05-10 07:53] LABS: INR 1.4 (0.9-1.1); Partial Thromboplastin Ratio 1.2; Partial Thromboplastin Time 33 Seconds (21-31); Prothrombin Time 14.3 Seconds (9.0-12.0)
[2024-05-10] MEDS: FUROSEMIDE 40 MG/4 ML VIAL IV ONE ×4 (08:03→13:34)
[2024-05-10 08:06] VITALS: O2SAT 100
--- OUTSIDE RECORDS SUMMARY | 2024-05-10 08:07 | External Medical Summary | Summary of Care ---
Author Name Unknown Organization [facility] Address [address] [place] [address] Phone [phone] Care Team Providers Care Foot Gatherer Name Role Phone Samanta Jung MD Primary Care Provider [phone] Reason for Visit * Reason Comments Outpatient Testing Encounter Details Date Type Department Care Team (Late st Contact Info) Description 05/06/2024 9:00 AM EDT Laboratory Laboratory [facility] [address] [place] [phone] [place], Lab Scenery [address] [place] [address] Iron deficiency anemia, unspecified iron deficiency anemia type; Nutritional anemia, unspecified Allergies Active Allergy Reactions Criticality Noted Date Comments Penicillins 02/24/2007 documented as of this encounter (statuses as of 05/06/2024) Medications Medication Sig Dispensed Refills Start Date [...] 05/07/2021 Active Jardiance 25 MG Oral Tablet Take 1 Tablet by mouth in the morning. 1 daily. 10/21/2021 Active Betamethasone Dipropionate 0.05 % External Lotion (Diprosone)Indicatio ns:Psoriasis Apply to torso and extremities twice daily as needed for flares 60 mL 3 03/11/2022 Active Hydrocortisone 2.5 % External CreamIndications:Pso riasis Apply to area behind the ears twice daily as needed for flares 60 g 1 03/11/2022 Active Metoprolol Succinate ER 25 MG Oral [...] the morning. 90 Tablet 3 05/14/2023 Active Digoxin 125 MCG Oral Tablet (Lanoxin)Indications :Atrial fibrillation (HCC) Take 1 Tablet by mouth in the morning. 90 Tablet 3 05/15/2023 Active Furosemide 40 MG Oral Tablet (Lasix)Indications:I diopathic cardiomegaly,Heart failure, systolic, due to idiopathic cardiomyopathy (HCC) Take 1 Tablet by mouth in the morning and 1 Tablet before bedtime. Take 1 tablet in the morning and 1 tablet in the afternoon.. 11/12/2023 Active Allopurinol 300 MG Oral Tablet (Zyloprim) Take 1.5 Tablets by mouth daily. 135 Tablet 4 12/03/2023 Active Stelara 90 MG/ML Subcutaneous Solution Prefilled Syringe (Ustekinumab)Indicat ions:Idiopathic chronic gout of multiple sites without tophus,Psoriatic arthritis (HCC),Psoriasis,Enco unter for long-term (current) use of medications,Other psoriasis Inject 90 mg under the skin every 12 weeks. 1 mL 1 01/14/2024 Active Entresto 49-51 MG Oral Tablet (sacubitril-valsarta n 49-51 mg per tab)Indications:Case Management Rn william systolic heart failure (HCC) Take 1 Tablet by mouth in the morning and 1 Tablet before bedtime. 180 Tablet 3 02/16/2024 Active Magnesium Oxide -Mg Supplement 400 (240 Mg) MG Oral Tablet (Mag-Ox)Indications: Heart failure, systolic, due to idiopathic cardiomyopathy (HCC) Take 1 Tablet by mouth in the morning. 90 Tablet 04/13/2024 Active Spironolactone 25 MG Oral Tablet (Aldactone)Indicatio ns:Idiopathic cardiomyopathy (HCC) Take 1 Tablet by mouth in the morning. 90 Tablet 3 04/13/2024 Active Xarelto 20 MG Oral Tablet (Rivaroxaban)Indicat ions:Idiopathic cardiomyopathy (HCC),Heart failure, systolic, due to idiopathic cardiomyopathy (HCC) TAKE 1 TABLET DAILY WITH DINNER 90 Tablet 3 04/30/2024 Active Amiodarone HCl 200 MG Oral Tablet (Cordarone)Indicatio ns:Atrial fibrillation (HCC),Idiopathic cardiomyopathy (HCC) Take 1 Tablet by mouth 2 times a day with morning and evening meals. 180 Tablet 05/03/2024 Active documented as of this encounter (statuses as of 05/06/2024) Active Problems Problem Noted Date Diagnosed Date [...] as of this encounter (statuses as of 05/06/2024) Resolved Problems Problem Noted Date Diagnosed Date [...] as of this encounter (statuses as of 05/06/2024) Immunizations Name Administration Dates Next Due COVID-19 mRNA, LNP-s, No Pre serve, 2-Dose Series (Moderna) 09/15/2020,08/07/2020 COVID-19, mRNA, LNP-s, PF, B ooster, 100mcg/0.5mg (Moderna) 06/05/2021 PPD 12/01/2017 Pneumococcal Conjugate Vacc, 13 Valent (Prevnar) 03/10/2017 Pneumococcal Polysaccharide PPV23 (Pneumovax) 04/29/2011,04/09/2011 Seasonal Influenza Vac., MDV , IM, 0.5 mL (Fluzone) 05/06/2018,03/22/2009 Seasonal Influenza Virus Vac cine, Unspecified Formulation 05/22/2021,03/16/2020,05/17/2019,05/25,05/06/2018,04/23/2017,2015 ,04/18/2013,04/19/2012,03/22/2009 Seasonal Influenza, PF, 6 M & above, IM , (FluLaval or Fluzone) 03/16/2020,05/17/2019 Seasonal Influenza, Trivalen t, (IIV3), PF, (Fluzone) 04/08/2024 TDAP, Age 7 and older, IM (Adacel) 03/15/2013 documented as of this encounter Social History Tobacco Use Types Packs/Day Years Used Date Smoking Tobacco: Never Smokeless Tobacco: Never Alcohol Use Standard Drinks/Week Comments No 0 (1 standard drink = 0.6 oz pur e alcohol) Utilities Answer Date Recorded Do you have trouble paying y our heating, water, or electric bill? (Adult - for ages 18 years and over) Not on file 12/22/2023 Is your family able to pay t he heat, water, or electric bill? (Household - for ages 0-17 years) Not on file 12/22/2023 Does your family have access to good internet? (Household - for ages 0-17 years) Not on file 12/22/2023 Social Connections Answer Date Recorded How often do you feel lonely or isolated from those around you? (Adult - for ages 18 years and over) Not on file 12/22/2023 Sex and Gender Information Value Date Recorded [...] Upcoming Encounters Date Type Department Care Team (Latest Contact Info) Description 05/06/2024 10:30 AM EDT Pharmacy Pharmacy, [place] [address] [place] [address] Clinic, Anemia [address] [facility] [place] [address] Iron deficiency anemia, unspecified iron deficiency anemia type* 05/09/2024 8:30 AM EST Nurse Only Dermatology [facility] [place] [address] [place] [address] Sp, Nurse Dermatology [address] [place] [address] 05/11/2024 8:30 AM EST Nurse Only Dermatology [facility] [address] [place] [address] Sp, Nurse Dermatology [address] [place] [address] 05/13/2024 8:00 AM EST Nurse Only Dermatology [facility] [address] [place] [address] Sp, Nurse Dermatology [address] [place] [address] 05/13/2024 10:30 AM EST Pharmacy Pharmacy, [id number] [id number] 05/16/2024 8:30 AM EST Nurse Only Dermatology [facility] [address] [place] [address] Sp, Nurse Dermatology [address] [place] [address] 05/18/2024 8:30 AM EST Nurse Only Dermatology [facility] [address] [place] [address] Sp, Nurse Dermatology [address] [place] [address] 05/20/2024 8:30 AM EST Nurse Only Dermatology [facility] [address] [place] [address] Sp, Nurse Dermatology [address] [place] [address] 05/23/2024 8:30 AM EST Nurse Only Dermatology [facility] [address] [place] [address] Sp, Nurse Dermatology [address] [place] [address] 05/25/2024 8:30 AM EST Nurse Only Dermatology [facility] [address] [place] [address] Sp, Nurse Dermatology [address] [place] [address] 05/27/2024 8:30 AM EST Nurse Only Dermatology [facility] [place] [address] [place] [address] Sp, Nurse Dermatology [address] [place] [address] 05/30/2024 8:30 AM EST Nurse Only Dermatology [facility] [place] [address] [place] [address] Sp, Nurse Dermatology [address] [place] [address] 06/01/2024 8:30 AM EST Nurse Only Dermatology [facility] [address] [place] [address] Sp, Nurse Dermatology [address] [place] [address] 06/23/2024 8:30 AM EST Office Visit Sleep Disorders Ctr [facility] [address] [place] [id number] Rosalinda Ashton CRNP [address] [place] [address] 08/01/2024 8:00 AM EST Office Visit Cardiology, [facility] [address] [place] [address] Patricio Johnson MD [address] [place] [address] 08/05/2024 10:15 AM EST Office Visit Dermatology [facility] [address] [place] [address] Carl Munson MD [address] [place] [address] 10/05/2024 8:45 AM EDT Office Visit Cardiology [facility] [place] [address] [place] [address] Uriel Byrne MD [address] [place] [address] 12/05/2024 8:00 AM EDT Office Visit Rheumatology [facility] [address] [place] [address] Terell Ward MD [address] [place] [address] 02/20/2025 9:00 AM EDT Cardiac Studies Cardiology [facility] [place] [address] [place] [address] Clinic, Heart Rhythm Device [address] [place] [address] Pending Results Name Type Priority Associated Diagnoses Date /Time IRON SCREEN, INCLUDING TIBC Lab Routine Iron deficiency anemia, unspecified iron deficiency anemia type 05/06/2024 8:47 AM EDT FERRITIN Lab Routine Iron deficiency anemia, unspecified iron deficiency anemia type 05/06/2024 8:47 AM EDT RETICULOCYTE PANEL Lab Routine Iron deficiency anemia, unspecified iron deficiency anemia type 05/06/2024 8:47 AM EDT FOLIC ACID Lab Routine Iron deficiency anemia, unspecified iron deficiency anemia type Nutritional anemia, unspecified 05/06/2024 8:47 AM EDT VITAMIN B12 Lab Routine Iron deficiency anemia, unspecified iron deficiency anemia type Nutritional anemia, unspecified 05/06/2024 8:47 AM EDT Health Maintenance Due Date Last Done Comments Depression Screening 1986 HIV Screening 1989 Albumin/Creatinine Ratio 1992 Diabetic Eye Exam 1992 Diabetic Foot Exam 1992 Hepatitis C Screening 1992 Hepatitis B Vaccine (1 of 3 - 19+ 3-dose series) 1993 Zoster Vaccines (1 of 2) 1993 Pap Smear 1995 Cervical Cancer Screening 2004 HPV/Co-Test 2004 Mammogram 2014 Cologuard 2019 Colonoscopy 2019 Colorectal Cancer Screening 2019 Fecal Occult Blood Test 2019 Sigmoidoscopy 2019 DIG LEVEL FOR MEDICATION MONITORING YEARLY 07/07/2020 07/07/2019, 11/11/2018, 02/18/2017, Additional history exists HbA1c 07/17/2021 01/14/2021, 03/10/2017 DTap/Tdap Vaccines (2 - Td or Tdap) 03/15/2023 03/15/2013 COVID-19 Vaccine ( - season) 2024 06/02/2023, 05/27/2022, 06/05/2021, Additional history exists GFR 02/24/2025 02/25/2024, 11/04, 12/10/2022, Additional history exists Lipid Panel 09/11/2026 09/11/2021, 09/2021, 01/14/2021, Additional history exists Pneumococcal Vaccine: Pediatrics (0 to 5 Years) and At-Risk Patients (6 to 64 Years) (4 of 4 - PPSV23 or PCV20) 2039 03/10/2017, 04/29/2011, 04/09/2011 Influenza Vaccine (FLU shot) Completed 10/2023, 05/22/2021, 03/16/2020, Additional history exists HPV (Gardasil) Vaccine Aged Out No lo nger eligible based on patient's age to complete this topic MENINGOCOCCAL (MENACTRA/MENVEO) Aged Out No longer eligible based on patient's age to complete this topic documented as of this encounter Medical Devices Implanted Type Area Double Bass Player Device Identifier Shelf Expiration Date Model / Serial / Lot Cath Thermodilution 6fr - [id number] Implanted:Qty: 1 on 03/16/2024 by Veronica Vidal MD at [facility] [employer] [id number] 09/23/2025 [id number] / / [id number] documented as of this encounter Procedures Procedure Name Priority Date/Time Associated Diagnosis Comments DIFFERENTIAL, AUTOMATED Routine 05/06/2024 8:47 AM EDT Iron deficiency anemia, unspecified iron deficiency anemia type CBC Routine 05/06/2024 8:47 AM EDT Iron deficiency anemia, unspecified iron deficiency anemia type CBC Routine 05/06/2024 8:47 AM EDT Iron deficiency anemia, unspecified iron deficiency anemia type documented in this encounter Results * DIFFERENTIAL, AUTOMATED (05/06/2024 8:47 AM EDT) WBC 8.37 4.00 - 10.80 K/uL 05/06/2024 9:01 AM EDT [facility] 56-02 Neutrophils % 71.5 40.0 - 75.0 % 05/06/2024 9:01 AM EDT LAB[facility]ATORY [place] 56-02 Lymphocytes % 18.4 18.0 - 42.0 % 05/06/2024 9:01 AM EDT [facility] Monocytes % 8.0 1.0 - 11.0 % 05/06/2024 9:01 AM EDT [facility] [place] 56-02 Eosinophils % 1.6 0.0 - 6.0 % 05/06/2024 9:01 AM EDT [facility] [place] 56-02 Basophils % 0.5 0.0 - 2.0 % 05/06/2024 9:01 AM EDT [facility] 56-02 Absolute Neutrophils 5.99 1.80 - 7.70 K/uL 05/06/2024 9:01 AM EDT [facility] [place] 56-02 Absolute Lymphocytes 1.54 1.00 - 4.80 K/ul 05/06/2024 9:01 AM EDT [facility] [place] 56-02 Absolute Monocytes 0.67 0.00 - 1.10 K/uL 05/06/2024 9:01 AM EDT [facility] 56-02 Absolute Eosinophils 0.13 0.00 - 0.70 K/uL 05/06/2024 9:01 AM EDT LAB[facility]ATORY [place] 56-02 Absolute Basophils 0.04 0.00 - 0.20 K/uL 05/06/2024 9:01 AM EDT [facility] 56-02 Blood Venous blood specimen / Unknown Venipuncture / Unknown 05/06/2024 8:47 AM EDT 05/06/2024 8:47 AM EDT [facility] LAB BLOOD ORDERABLES [address] [place] [address] * (ABNORMAL) CBC (05/06/2024 8:47 AM EDT) [facility] WBC 8.37 4.00 - 10.80 K/uL 05/06/2024 9:01 AM EDT [place] [address] RBC 3.88 4.50 - 5.25 M/uL 05/06/2024 9:01 AM EDT [place] [address] HGB 9.7(L) 14.0 - 16.8 g/dL 05/06/2024 9:01 AM EDT [place] [address] HCT 32.0(L) 40.0 - 48.4 % 05/06/2024 9:[address] EDT [address] MCV 82.5 82.0 - 99.5 fL 05/06/2024 9:01 AM EDT [address] MCH 25.0 27.0 - 34.0 pg 05/06/2024 9:01 AM EDT [place] [address] MCHC 30.3 32.0 - 36.0 g/dL 05/06/2024 9:01 AM EDT [address] RDW 15.3 11.5 - 15.5 % 05/06/2024 9:01 AM EDT [address] PLT 433(H) 140 - 400 K/uL 05/06/2024 9:01 AM EDT [address] MPV 8.7 6.6 - 11.1 fL 05/06/2024 9:01 AM EDT [facility] Blood Venous blood specimen / Unknown Venipuncture / Unknown 05/06/2024 8:47 AM EDT 05/06/2024 8:47 AM EDT [facility] LAB BLOOD ORDERABLES [facility] [place] [address] [place] [id number] documented in this encounter Visit Diagnoses Diagnosis Iron deficiency anemia, unspecified iron deficiency anemia type- Primary Iron deficiency anemia, unspecified iron deficiency anemia type Nutritional anemia, unspecified documented in this encounter Advance Directives Documents on File Type Date Recorded 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
--- OUTSIDE RECORDS SUMMARY | 2024-05-10 08:07 | External Medical Summary | Summary of Care ---
Author Name Unknown Organization [facility] Address [address] [place] [address] Phone [phone] Care Team Providers Care Operations Manager Assistant Name Role Phone Samanta Jung MD Primary Care Provider [phone] Reason for Visit * Reason Comments Light treatment No skin reaction fro m previous treatment. Areas of body covered or protected during treatment: eyes and genitals. Narrow Band UVB 2150 millijoules. Patient receives treatment three times weekly. Narrow Band UVB dose to be increased by 100 millijoules each treatment. The patient denied being on any antibiotics today. Encounter Details Date Type Department Care Team (Late st Contact Info) Description 05/09/2024 8:30 AM EST Nurse Only Dermatology [address] [address] Sp, Nurse Dermatology [address] [place] [phone] Light treatment (No skin reaction from pre... Allergies Active Allergy Reactions Criticality Noted Date Comments Penicillins 02/24/2007 documented as of this encounter (statuses as of 05/09/2024) Medications Medication Sig Dispensed Refills Start Date [...] Oral Tablet (sacubitril-valsarta n 49-51 mg per tab)Indications:Licensed Clinician william systolic heart failure (HCC) Take 1 [...] as of this encounter (statuses as of 05/09/2024) Active Problems Problem Noted Date Diagnosed Date [...] as of this encounter (statuses as of 05/09/2024) Resolved Problems Problem Noted Date Diagnosed Date [...] as of this encounter (statuses as of 05/09/2024) Immunizations Name Administration Dates Next Due COVID-19 [...] Care Team (Late st Contact Info) Description 05/11/2024 8:30 AM EST Nurse Only Dermatology [facility] [place] [address] [place] [address] Sp, Nurse Dermatology [address] [place] [address] 05/13/2024 8:00 AM EST Nurse Only Dermatology [facility] [place] [address] [place] [address] Sp, Nurse Dermatology [address] [place] [address] 05/13/2024 10:30 AM EST Pharmacy Pharmacy, [place] [address] [place] [address] [facility] [address] [place] [address] 05/16/2024 8:30 AM EST Nurse Only Dermatology [place] [place] [address] [place] [address] Sp, Nurse Dermatology [address] [place] [address] 05/18/2024 8:30 AM EST Nurse Only Dermatology [facility] [place] [address] [place] [address] Sp, Nurse Dermatology [address] [place] [address] 05/20/2024 8:30 AM EST Nurse Only Dermatology [facility] [place] [address] [place] [address] Sp, Nurse Dermatology [address] [place] [address] 05/23/2024 8:30 AM EST Nurse Only Dermatology [facility] [place] [address] [place] [address] Sp, Nurse Dermatology [address] [place] [address] 05/25/2024 8:30 AM EST Nurse Only Dermatology [facility] [place] [address] [place] [address] Sp, Nurse Dermatology [address] [place] [address] 05/27/2024 8:30 AM EST Nurse Only Dermatology [place] [address] [place] [address] Sp, Nurse Dermatology [address] [place] [address] 05/30/2024 8:30 AM EST Nurse Only Dermatology [facility] [address] [place], [place] [address] Sp, Nurse Dermatology [address] [place] [address] 06/01/2024 8:30 AM EST Nurse Only Dermatology [facility] [address] [place] [address] Sp, Nurse Dermatology [address] [place], [place] [address] 06/23/2024 8:30 AM EST Office Visit [facility] Disorders C[facility] [address] [facility] [place] [id number] Rosalinda [place] CRNP [address] [place] [address] 08/01/2024 8:00 AM EST Office Visit Cardiology, [facility] [address] [facility] [place] [address] Patricio Johnson MD [address] [place] [address] 08/05/2024 10:15 AM EST Office Visit Dermatology [facility] [address] [place] [address] Carl Munson MD [address] [place] [address] 10/05/2024 8:45 AM EDT Office Visit Cardiology [facility] [address] [place] [address] Uriel Byrne MD [address] [place] [address] 12/05/2024 8:00 AM EDT Office Visit Rheumatology [facility] [address] [facility] [place] [address] Terell Ward MD [address] [facility] [place], [place] [address] 02/20/2025 9:00 AM EDT Cardiac Studies Cardiology [facility] [place] [address] [place] [address] Clinic, Heart Rhythm Device [address] [place], [place] [id number] Health Maintenance Due Date Last Done Comments [...] or Tdap) 03/15/2023 03/15/2013 COVID-19 Vaccine ( season) 2024 06/02/2023, 05/27/2022, 06/05/2021, Additional history exists GFR 02/24/2025 02/25/2024, 05/03/2024, 12/10/2022, Additional history exists Lipid Panel 09/11/2026 [...] this encounter Medical Devices Implanted Type Area Banking Attorney Device Identifier Shelf Expiration Date Model / Serial / Lot Cath Thermodilution 6fr - [id number] Implanted:Qty: 1 on 03/16/2024 by Veronica Vidal MD at 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
--- OUTSIDE RECORDS SUMMARY | 2024-05-10 08:08 | External Medical Summary ---
Author Name Unknown Address Unknown Organization [id number]:[facility]ATORY [facility] - [address] [place] [address] Laboratory Report Ordering Provider Test Date Status ZAINAB DUMONT 05/06/2024 08:47:31 Final Observation Date Value Abnormality Reference (Units ) Status Ferritin 05/06/2024 08:47:31 17 Below low normal 30- 400 (ng/mL) Final The above reference range is based on the legal sex of the patient only. Results should be interpreted together with patient's sex at , gender identity, and clinical context. Performing Location [facility]ORY [facility] - [address] [place] [address]
--- OUTSIDE RECORDS SUMMARY | 2024-05-10 08:08 | External Medical Summary | Summary of Care ---
Author Name Unknown Organization [facility] Address [address] [place] [address] Phone [phone] Care Team Providers Care Drafter Commercial Name Role Phone Samanta Jung MD Primary Care Provider [phone] Reason for Visit * Reason Comments eRx-Medication Refill Encounter Details Date Type Department Care Team (Late st Contact Info) Description 05/02/2024 Refill Cardiology, [facility] [address] [employer] [facility] [place] [address] Vera Ron PA-C [address] [employer] [facility] [place] [address] Atrial fibrillation (HCC); Idiopathic cardiomyopathy (HCC) Allergies Active Allergy Reactions Criticality Noted Date Comments Penicillins 02/24/2007 documented as of this encounter (statuses as of 05/03/2024) Medications Medication Sig Dispensed Refills Start Date End Date Status Cholecalciferol (VITAMIN D3) 3000 UNITS Tablet Take 1 Tablet by mouth in the morning. Active Cyanocobalamin (B-12) 1000 MCG Capsule Take 1 Capsule by mouth in the morning. Active metFORMIN HCl 500 MG Oral Tablet (Glucophage) Take 1 Tablet by mouth 2 times a day with morning and evening meals. 1 Active Jardiance 25 MG Oral Tablet Take 1 Tablet by mouth in the morning. 1 daily. 2 Active Betamethasone Dipropionate 0.05 % External Lotion (Diprosone)Indicati ons:Psoriasis Apply to torso and extremities twice daily as needed for flares 60 mL 3 2 Active Hydrocortisone 2.5 % External CreamIndications:Ps oriasis Apply to area behind the ears twice daily as needed for flares 60 g 1 2 Active Metoprolol Succinate ER 25 MG Oral Tablet Extended Release 24 Hour (toPROL XL)Indications:Hear t failure, systolic, due to idiopathic cardiomyopathy (HCC),Paroxysmal atrial fibrillation (HCC) Take 1 Tablet by mouth in the morning and 1 Tablet before bedtime. 180 Tablet 3 3 Active Potassium Chloride Concepción ER 10 MEQ Oral Tablet Extended ReleaseIndications: Idiopathic cardiomegaly,Heart failure, systolic, due to idiopathic cardiomyopathy (HCC) Take 1 Tablet by mouth in the morning and 1 Tablet before bedtime. 180 Tablet 3 3 Active Rosuvastatin Calcium 5 MG Oral Tablet (Crestor)Indication s:Mixed hyperlipidemia Take 1 Tablet by mouth in the morning. 90 Tablet 3 3 Active Digoxin 125 MCG Oral Tablet (Lanoxin)Indication s:Atrial fibrillation (HCC) Take 1 Tablet by mouth in the morning. 90 Tablet 3 3 Active Furosemide 40 MG Oral Tablet (Lasix)Indications: Idiopathic cardiomegaly,Heart failure, systolic, due to idiopathic cardiomyopathy (HCC) Take 1 Tablet by mouth in the morning and 1 Tablet before bedtime. Take 1 tablet in the morning and 1 tablet in the afternoon.. 4 Active Allopurinol 300 MG Oral Tablet (Zyloprim) Take 1.5 Tablets by mouth daily. 135 Tablet 4 4 Active Stelara 90 MG/ML Subcutaneous Solution Prefilled Syringe (Ustekinumab)Indica tions:Idiopathic chronic gout of multiple sites without tophus,Psoriatic arthritis (HCC),Psoriasis,Enc ounter for long-term (current) use of medications,Other psoriasis Inject 90 mg under the skin every 12 weeks. 1 mL 1 4 Active Entresto 49-51 MG Oral Tablet (sacubitril-valsart an 49-51 mg per tab)Indications:Chr onic systolic heart failure (HCC) Take 1 Tablet by mouth in the morning and 1 Tablet before bedtime. 180 Tablet 3 4 Active Magnesium Oxide -Mg Supplement 400 (240 Mg) MG Oral Tablet (Mag-Ox)Indications :Heart failure, systolic, due to idiopathic cardiomyopathy (HCC) Take 1 Tablet by mouth in the morning. 90 Tablet 4 Active Spironolactone 25 MG Oral Tablet (Aldactone)Indicati ons:Idiopathic cardiomyopathy (HCC) Take 1 Tablet by mouth in the morning. 90 Tablet 3 4 Active Xarelto 20 MG Oral Tablet (Rivaroxaban)Indica tions:Idiopathic cardiomyopathy (HCC),Heart failure, systolic, due to idiopathic cardiomyopathy (HCC) TAKE 1 TABLET DAILY WITH DINNER 90 Tablet 3 4 Active Amiodarone HCl 200 MG Oral Tablet (Cordarone)Indicati ons:Atrial fibrillation (HCC),Idiopathic cardiomyopathy (HCC) Take 1 Tablet by mouth 2 times a day with morning and evening meals. 180 Tablet 4 Active Amiodarone HCl 200 MG Oral Tablet (Cordarone)Indicati ons:Atrial fibrillation (HCC),Idiopathic cardiomyopathy (HCC) Take 1 Tablet by mouth 2 times a day with morning and evening meals. 4 05/03/20 24 Discontinued documented as of this encounter (statuses as of 05/03/2024) Active Problems Problem Noted Date Diagnosed Date [...] as of this encounter (statuses as of 05/03/2024) Resolved Problems Problem Noted Date Diagnosed Date [...] as of this encounter (statuses as of 05/03/2024) Immunizations Name Administration Dates Next Due COVID-19 [...] No 09/26/2016 documented as of this encounter Miscellaneous Notes * Telephone Encounter - Armando Eric MD - 05/03/2024 4:43 PM EDTSigned Prescriptions: Disp Refills Amiodarone HCl 200 MG Oral Tablet (Cordaro*180 Ta*0 Sig: Take 1 Tablet by mouth 2 times a day with morning and evening meals. Authorizing Provider: ARMANDO ERIC * Telephone Encounter - Immanuel Walker [facility] - 05/03/2024 4:27 PM EDT Pending Prescriptions: Disp Refills Amiodarone HCl 200 MG Oral Tablet (Cordaro*180 Ta*0 Sig: Take 1 Tablet by mouth 2 times a day with morning and evening meals. * Telephone Encounter - Immanuel Walker [facility] - 05/03/2024 4:16 PM EDT Medication listed as historical. [facility] is currently not authorized to approve refills for the pended medication(s) per refill protocol. Please approve if appropriate. Thanks, Immanuel Walker, PharmD Clinical Pharmacist [facility] [phone] 05/03/2024, 4:20 PM documented in this encounter Plan of Treatment Upcoming Encounters Date Type Department Care Team (Late st Contact Info) Description 05/04/2024 8:00 AM EDT Cardiac Studies Cardiac Studies [facility] [place] [address] [place] [address] [place], [place] [address] [place] [address] 05/04/2024 8:30 AM EDT Office Visit Cardiology [facility] [place] [address] [place] [address] Claudia Cordova IV, MD [address] [place] [address] 05/06/2024 8:30 AM EDT Nurse Only Dermatology [facility] [address] [place] [address] Sp, Nurse Dermatology 200 [facility] [place] [address] 05/10/2024 4:00 PM EST Pharmacy Pharmacy, [place] [address], [place] [id number] Clinic, [place] [address] [place], [place] [phone] 06/23/2024 8:30 AM EST Office Visit Sleep Disorders Ctr [facility] 132 [place] [phone] Rosalinda Ashton CRNP [address] [place] [address] 08/01/2024 8:00 AM EST Office Visit Cardiology, [facility] 132 [facility] [place] [address] Armando Eric MD [address] [place] [address] 08/05/2024 10:15 AM EST Office Visit Dermatology [facility] [place] [address] [place] [address] Carl Munson MD [address] [place] [address] 10/05/2024 8:45 AM EDT Office Visit [facility]iology [facility] [place] [address] [place] [address] Uriel Byrne MD [address], [place] [address] 12/05/2024 8:00 AM EDT Office Visit Rheumatology [facility] [address] [place] [address] Terell Ward MD [address] [place], [place] [address] 02/20/2025 9:00 AM EDT Cardiac Studies Cardiology [facility], [place] [address] [place] [address] Clinic, Heart Rhythm Device [address] [place] [address] Health Maintenance Due Date Last Done Comments [...] this encounter Medical Devices Implanted Type Area Scale Installer Device Identifier Shelf Expiration Date Model / Serial / Lot Cath Thermodilution 6fr - [id number] Implanted:Qty: 1 on 03/16/2024 by Veronica Vidal MD at [facility] [employer] NACHO [id number] 09/23/2025 [id number] / / [id number] documented as of this encounter Visit Diagnoses Diagnosis Atrial fibrillation (HCC) Atrial fibrillation Idiopathic cardiomyopathy (HCC) Other primary cardiomyopathies documented in this encounter Advance Directives Documents on File Type Date Recorded Patient Working Second Hand Expl anation Advance Directives and Living Will [...] 10:58 AM 01/21/2008 1:40 PM Care Teams Drafter Commercial Relationship Specialty Start Date End Date Samanta Jung MD [address] [place], [place] [address] [address] PCP - General Family Medicine 01/07/18 documented as of this encounter
--- OUTSIDE RECORDS SUMMARY | 2024-05-10 08:08 | External Medical Summary ---
Author Name Unknown Address Unknown Organization K01:LABORATORY [facility] - [address] [place] [address] Laboratory Report Ordering Provider Test Date Status ZAINAB DUMONT 05/06/2024 08:47:31 Final Observation Date Value Abnormality Reference (Units ) Status Vitamin B12 05/06/2024 08:47:31 410 212-0442 (pg/mL) Final Performing Location LABORATORY C - [address] [place] [address]
--- OUTSIDE RECORDS SUMMARY | 2024-05-10 08:08 | External Medical Summary ---
Author Name Unknown Address Unknown Organization K01:LABORATORY [facility] - [address] [place] [address] Laboratory Report Ordering Provider Test Date Status ZAINAB DUMONT 05/06/2024 08:47:31 Final Observation Date Value Abnormality Reference (Units ) Status Folic Acid 05/06/2024 08:47:31 8.4 >4.5 (ng/ mL) Final Performing Location LABORATORY [facility] - [address] [place] [address]
--- OUTSIDE RECORDS SUMMARY | 2024-05-10 08:08 | External Medical Summary ---
Author Name Unknown Address Unknown Organization K09:LAB[place]ATORY [place] [address] Laboratory Report Ordering Provider Test Date Status ZAINAB DUMONT 05/06/2024 08:47:31 Final Observation Date Value Abnormality Reference (Units ) Status SYNC LEUKOCYTES IN BLOOD BY AUTOMATED COUNT 05/06/2024 08:47:31 8.37 4.00-10.80 (K/uL) Final Segs 05/06/2024 08:47:31 71.5 40.0-75.0 (%) Final Lymphs % 05/06/2024 08:47:31 18.4 18.0-42.0 (%) Final Monos 05/06/2024 08:47:31 8.0 1.0-11.0 (%) Final Eosinophils 05/06/2024 08:47:31 1.6 0.0-6.0 (%) Final Basos 05/06/2024 08:47:31 0.5 0.0-2.0 (%) Final Absolute Segs 05/06/2024 08:47:31 5.99 1.80-7.70 (K/uL) Final Lymphs, absolute 05/06/2024 08:47:31 1.54 1.00-4.80 (K/ul) Final Monos, Abs 05/06/2024 08:47:31 0.67 0.00-1.10 (K/uL) Final Eos, Abs 05/06/2024 08:47:31 0.13 0.00-0.70 (K/uL) Final Basos, Abs 05/06/2024 08:47:31 0.04 0.00-0.20 (K/uL) Final Performing Location [facility] [place] [address]
--- OUTSIDE RECORDS SUMMARY | 2024-05-10 08:08 | External Medical Summary | Summary of Care ---
Author Name Unknown Organization [facility] Address [address] [place] [address] Phone [phone] Care Team Providers Care Equity Director Name Role Phone Samanta Jung MD Primary Care Provider [phone] Reason for Visit * Reason Comments Anemia Follow-Up Encounter Details Date Type Department Care Team (Late st Contact Info) Description 05/04/2024 8:30 AM EDT Pharmacy Pharmacy, [place] [address] [place], [place] [phone] Clinic, An[place] [address] [place], [place] [id number] Iron deficiency anemia, unspecified iron deficiency anemia type*; Nutritional anemia, unspecified Allergies Active Allergy Reactions Criticality Noted Date Comments Penicillins 02/24/2007 documented as of this encounter (statuses as of 05/04/2024) Medications Medication Sig Dispensed Refills Start Date [...] Oral Tablet (sacubitril-valsarta n 49-51 mg per tab)Indications:Animal Shelter Clerk william systolic heart failure (HCC) Take 1 [...] as of this encounter (statuses as of 05/04/2024) Active Problems Problem Noted Date Diagnosed Date [...] as of this encounter (statuses as of 05/04/2024) Resolved Problems Problem Noted Date Diagnosed Date [...] as of this encounter (statuses as of 05/04/2024) Immunizations Name Administration Dates Next Due COVID-19 [...] No 09/26/2016 documented as of this encounter Progress Notes * Claire Grace, [facility] - 05/04/2024 11:48 AM EDT Patient Phone Numbers Patient referred by Dr. Byrne for evaluation of anemia by the Anemia Clinic. Called patient to introduce role/clinic and to review labs from 03/16/24. Spoke with patient. Hgb: 13.5 g/dL 02/25/24 TSAT: 13 % Ferritin: 55 ng/mL Hgb is within target range. Patient does not meet criteria for anemia. Discussed this with patient.No iron studies collected with most recent labs, but TSAT inadequate on prior labs. Patient reportshe does sometimes have SOB and occasional dizziness, but potentially attributable to cardiac condition. Plan: Repeat full set of anemia labs tomorrow 05/06/24 to align with dermatology appt. Anemia Clinic will continue to follow. Thank you for allowing us to participate in the care of thispatient. Claire Grace, PharmD Clinical Pharmacist - [employer] Anemia Clinic (P: [phone]) 05/04/2024 11:59 AM documented in this encounter Plan of Treatment Upcoming Encounters Date Type Department Care Team (Late st Contact Info) Description 05/06/2024 8:30 AM EDT Nurse Only Dermatology [facility] [place] [address] [place] [address] Sp, Nurse Dermatology [address] [place] [address] [place] [address] 05/06/2024 10:30 AM EDT Pharmacy Pharmacy, [place] [address] [place] [address] Clinic, Anemia [address] [place] [address] 06/23/2024 8:30 AM EST Office Visit Sleep Disorders Ctr [facility] [address] [place] [phone] Rosalinda Ashton CRNP [address] [place] [address] 08/01/2024 8:00 AM EST Office Visit Cardiology, [facility] [address] [place] [address] Patricio Johnson MD [address] [place] [address] 08/05/2024 10:15 AM EST Office Visit Dermatology [facility] [place] [address] [place] [address] Carl Munson MD [address] [place] [address] [place] [address] 10/05/2024 8:45 AM EDT Office Visit Cardiology [facility] [address] [place] [address] Uriel Byrne MD [address] [place] [address] 12/05/2024 8:00 AM EDT Office Visit Rheumatology [facility] [address] [place] [address] Terell Ward MD [address] [place] [address] 02/20/2025 9:00 AM EDT Cardiac Studies Cardiology [facility] [address] [place] [address] Clinic, Heart Rhythm Device [address] [place] [address] Scheduled Orders Name Type Priority Associated Diagnoses Orde r Schedule CBC WITH WBC DIFFERENTIAL Lab Routine Iron deficiency anemia, unspecified iron deficiency anemia type Expected: 05/05/2024, Expires: 04/04/2025 IRON SCREEN, INCLUDING TIBC Lab Routine Iron deficiency anemia, unspecified iron deficiency anemia type Expected: 05/05/2024, Expires: 04/04/2025 FERRITIN Lab Routine Iron deficiency anemia, unspecified iron deficiency anemia type Expected: 05/05/2024, Expires: 04/04/2025 RETICULOCYTE PANEL Lab Routine Iron deficiency anemia, unspecified iron deficiency anemia type Expected: 05/05/2024, Expires: 04/04/2025 FOLIC ACID Lab Routine Iron deficiency anemia, unspecified iron deficiency anemia type Nutritional anemia, unspecified Expected: 05/05/2024, Expires: 04/04/2025 VITAMIN B12 Lab Routine Iron deficiency anemia, unspecified iron deficiency anemia type Nutritional anemia, unspecified Expected: 05/05/2024, Expires: 04/04/2025 Health Maintenance Due Date Last Done Comments [...] this encounter Medical Devices Implanted Type Area Edger Feeder Device Identifier Shelf Expiration Date Model / Serial / Lot Cath Thermodilution 6fr - [id number] Implanted:Qty: 1 on 03/16/2024 by Veronica Vidal MD at [facility] [employer] [id number] 09/23/2025 [id number] / / [id number] documented as of this encounter Visit Diagnoses Diagnosis Iron deficiency anemia, unspecified iron deficiency anemia type- Primary Nutritional anemia, unspecified documented in this encounter Advance Directives Documents on File Type Date Recorded Patient Director Of Pulmonary Unit Expl anation Advance Directives and Living Will [...] 10:58 AM 01/21/2008 1:40 PM Care Teams Equity Director Relationship Specialty [place] [address] [place] [address] [place] [address] PCP - General Family Medicine 01/07/18 documented as of this encounter
--- OUTSIDE RECORDS SUMMARY | 2024-05-10 08:08 | External Medical Summary | Summary of Care ---
Author Name Unknown Organization [facility] Address [address] [place] [address] Phone [phone] Care Team Providers Care Mercury Cracking Tester Name Role Phone Samanta Jung MD Primary Care Provider [phone] Encounter Details Date Type Department Care Team (Late st Contact Info) Description 05/03/2024 Result Scan Unspecified Department Man Cherry, DO [address] [place] [address] <No scans attached> Allergies Active Allergy Reactions [...] Oral Tablet (sacubitril-valsarta n 49-51 mg per tab)Indications:Falsework Builder william systolic heart failure (HCC) Take 1 [...] 05/06/2024 8:30 AM EDT Nurse Only Dermatology [facility] 200 [facility] [place] [address] Sp, Nurse Dermatology 200 [facility] [place] [address] 05/06/2024 10:30 AM EDT Pharmacy Pharmacy, [place] [id number] Clinic, [place] [address] [place] [address] 06/23/2024 8:30 AM EST Office Visit [facility] [place] [address] [place] [phone] Rosalinda Ashton CRNP 132 [place] [address] 08/01/2024 8:00 AM EST Office Visit Cardiology, [facility] 132 [place] [address] Patricio Johnson MD 132 [place] [address] 08/05/2024 10:15 AM EST Office Visit Dermatology [facility] 200 [facility] [place] [address] Carl Munson MD 200 [place] [address] 10/05/2024 8:45 AM EDT Office Visit [facility] [place] [address] [place] [address] Uriel Byrne MD [address] [place] [address] 12/05/2024 8:00 AM EDT Office Visit Rheumatology [address] [address] Terell Ward MD [address] [place] [address] 02/20/2025 9:00 AM EDT [facility] [address] [place] [address] Clinic, Heart Rhythm Device [address] [place], [place] [address] Health Maintenance Due Date Last Done Comments [...] this encounter Medical Devices Implanted Type Area Waste Water Or Water Plant Operator Device Identifier Shelf Expiration Date Model / Serial / Lot Cath Thermodilution 6fr - [id number] Implanted:Qty: 1 on 03/16/2024 by Veronica Vidal MD at [facility] [employer] [id number] 09/23/2025 [id number] / / [id number] documented as of this encounter Procedures Procedure Name Priority Date/Time Associated Diagnosis Comments CARDIOLOGY SCANNED RESULT 05/03/2024 documented in this encounter Results * CARDIOLOGY SCANNED RESULT (05/03/2024) 05/03/2024 Manjaskaran Cherry OTHER documented in this encounter Advance Directives Documents on File Type Date Recorded Patient Plant Hr Manager Expl anation Advance Directives and Living [...] 10:58 AM 01/21/2008 1:40 PM Care Teams Mercury Cracking Tester Relationship Specialty Start Date End Date Samanta Jung MD [address] [place] [address] [place] [address] PCP - General Family Medicine 01/07/18 documented as of this encounter
--- OUTSIDE RECORDS SUMMARY | 2024-05-10 08:08 | External Medical Summary ---
Author Name Unknown Address Unknown Organization K01:LABORATORY [facility] - [address] [place] [address] Laboratory Report Ordering Provider Test Date Status TIMLAMB 05/06/2024 08:47:31 Final Observation Date Value Abnormality Reference (Units ) Status Iron 05/06/2024 08:47:31 20 Below low normal 45-176 (ug/dL) Final Iron-binding capacity 05/06/2024 08:47:31 495 Above high normal 250-425 (ug/dL) Final Transferrin Sat % 05/06/2024 08:47:31 4 Below low normal 15-55 (%) Final Performing Location LABORATORY [facility] - [address] [place] [address]
--- OUTSIDE RECORDS SUMMARY | 2024-05-10 08:08 | External Medical Summary ---
Author Name Unknown Address Unknown Organization K01:[facility] [place] [address] Laboratory Report Ordering Provider Test Date Status ZAINAB DUMONT 05/06/2024 08:47:31 Final Observation Date Value Abnormality Reference (Units ) Status Retic, % (auto) 05/06/2024 08:47:31 1.89 0.80-1.90 (%) Final Reticulocytes, Absolute 05/06/2024 08:47:31 53.0 31.3-100.1 (K/uL) Final Reticulocyte fraction, immature 05/06/2024 08:47:31 26.6 Above high normal 2.5-20.6 (%) Final Reticulocyte HGB 05/06/2024 08:47:31 21.9 Below low normal 29.7-37.4 (pg) Final Performing Location [facility] [place] [address] [place] [address]
--- OUTSIDE RECORDS SUMMARY | 2024-05-10 08:08 | External Medical Summary | Summary of Care ---
Author Name Unknown Organization [facility] Address [address] [place] [address] Phone [phone] Care Team Providers Care Drug Abuse Treatment Specialist Name Role Phone Samanta Jung MD Primary Care Provider [phone] Reason for Visit * Reason Comments Status Check Encounter Details Date Type Department Care Team (Late st Contact Info) Description 05/06/2024 10:30 AM EDT Pharmacy Pharmacy, [place] [address] [place], [place] [id number] Clinic, Anemia [address] [place], [place] [id number] Iron deficiency anemia, unspecified iron deficiency anemia type* Allergies Active Allergy Reactions Criticality Noted Date [...] Oral Tablet (sacubitril-valsarta n 49-51 mg per tab)Indications:Scaler william systolic heart failure (HCC) Take 1 [...] 03/16/2020 Idiopathic chronic gout of multiple sites withdillan tran 12/06/2018 Epistaxis, recurrent 06/22/2018 DM type [...] as of this encounter Progress Notes * Roberta Ramos CPhT - 05/06/2024 8:02 AM EDT Attempt 1 Patient is due for Anemia clinic labs [facility] reminder message sent today Follow up for results Thank you, Roberta Ramos CPhT [facility] ([facility]) 05/06/2024,8:03 AM documented in this encounter Plan of Treatment Upcoming Encounters Date Type Department Care Team (Late st Contact Info) Description 05/06/2024 8:30 AM EDT Nurse Only Dermatology [place] [address] [place] [address] Sp, Nurse Dermatology 200 [facility] [place] [address] 05/13/2024 10:30 AM EST Pharmacy Pharmacy, [place] [address] [place] [address] Clinic, [place] [address] [place], [place] [id number] 06/23/2024 8:30 AM EST Office Visit Sleep Disorders Ctr [facility] [address] [place] [address] Rosalinda Ashton CRNP [address] [place] [address] 08/01/2024 8:00 AM EST Office Visit Cardiology, [facility] [address] [place] [address] Patricio Johnson MD [address] [place] [address] 08/05/2024 10:15 AM EST Office Visit Dermatology [facility] [address] [place] [address] Carl Munson MD 200 [facility] [place] [address] 10/05/2024 8:45 AM EDT Office Visit Cardiology [facility], [place] [address] [place] [address] Uriel Byrne MD [address] [place], [place] [address] 12/05/2024 8:00 AM EDT Office Visit Rheumatology [place] [address] [place], [place] [address] Terell Ward MD [facility] [place] [address] 02/20/2025 9:00 AM EDT Cardiac Studies Cardiology [facility], [place] [address] [place] [address] Clinic, Heart Rhythm Device [address] [place] [address] Health Maintenance Due Date Last Done Comments [...] 06/05/2021, Additional history exists GFR 02/24/2025 02/25/2024, 0503/2024, 12/10/2022, Additional history exists Lipid Panel 09/11/2026 [...] this encounter Medical Devices Implanted Type Area Refrigeration Installer Device Identifier Shelf Expiration Date Model / Serial / Lot Cath Thermodilution 6fr - [id number] Implanted:Qty: 1 on 03/16/2024 by Veronica Vidal MD at [facility] [employer] NACH[employer] [id number] 09/23/2025 [id number] / / [id number] documented as of this encounter Visit Diagnoses Diagnosis Iron deficiency anemia, unspecified iron deficiency anemia type- Primary documented in this encounter Advance Directives Documents on File Type Date Recorded Patient Gravure Press Set Up Operator Expl anation Advance Directives and Living [...] 10:58 AM 01/21/2008 1:40 PM Care Teams Drug Abuse Treatment Specialist Relationship Specialty Start Date End Date Samanta Jung MD [address] [place] [address] [place] [address] PCP - General Family Medicine 01/07/18 documented as of this encounter
--- OUTSIDE RECORDS SUMMARY | 2024-05-10 08:08 | External Medical Summary | Summary of Care ---
Author Name Unknown Organization [facility] Address [address] [place] [address] Phone [phone] Care Team Providers Care Steward/Stewardess Chief Cargo Vessel Name Role Phone Samanta Jung MD Primary Care Provider Reason for Visit * Reason Comments Phototherapy NBUVB 2040 mj Encounter Details Date Type Department Care Team (Late st Contact Info) Description 05/06/2024 8:30 AM EDT Nurse Only Dermatology [facility] [address] [place] [address] Sp, Nurse Dermatology 200 [place] [address] Phototherapy (NBUVB 2040 mj) Allergies Active Allergy Reactions Criticality Noted [...] Oral Tablet (sacubitril-valsarta n 49-51 mg per tab)Indications:Senior It Engineer william systolic heart failure (HCC) Take 1 [...] Nursing Notes * Lulu Wellington LPN - 05/06/2024 8:41 AM EDT No skin reaction from previous treatment. Areas of body covered or protected during treatment: eyesand genitals. Narrow Band UVB 2040 millijoules. Patient receives treatment twice weekly. Narrow Band UVB dose to be increased by 100 millijoules each treatment. Maxdose 2500 mj documented in this encounter Plan of Treatment Upcoming Encounters Date Type Department Care Team (Latest Contact Info) Description 05/06/2024 9:00 AM EDT Laboratory Laboratory [facility] [address] [place] [phone] Janis Dan [facility] [address] [place] [address] Iron deficiency anemia, unspecified iron deficiency anemia type; Nutritional anemia, unspecified 05/06/2024 10:30 AM EDT Pharmacy Pharmacy, [address] [address] Clinic, An[place] [address] [place] [address] Iron deficiency anemia, unspecified iron deficiency anemia type* 05/13/2024 10:30 AM EST Pharmacy Pharmacy, [address] [phone] Clinic, [place] [address] [place] [address] 06/23/2024 8:30 AM EST Office Visit Sleep Disorders Ctr [facility] 132 [place] [phone] Rosalinda Ashton CRNP [address] [facility] [address] 08/01/2024 8:00 AM EST Office Visit Cardiology, [facility] 132 [place] [address] Patricio Johnson MD [address] [place] [address] 08/05/2024 10:15 AM EST Office Visit Dermatology [facility] [place] [address] [place] [address] Carl Munson MD [address] [place] [address] 10/05/2024 8:45 AM EDT Office Visit Cardiology [address] [place] [address] Uriel Byrne MD [address] [place] [address] 12/05/2024 8:00 AM EDT Office Visit Rheumatology [facility] [address] [employer] [place] [address] Terell Ward MD [address] [place], [place] [address] 02/20/2025 9:00 AM EDT Cardiac Studies Cardiology [facility] [address] [place], [place] [phone] Clinic, Heart Rhythm Device [address] [place] [address] Health Maintenance Due Date Last Done Comments [...] this encounter Medical Devices Implanted Type Area Brush Sander Device Identifier Shelf Expiration Date Model / Serial / Lot Cath Thermodilution 6fr - [id number] Implanted:Qty: 1 on 03/16/2024 by Veronica Vidal MD at [facility] achvr [id number] 09/23/2025 [id number] / / [id number] documented as of this encounter Visit Diagnoses Diagnosis Psoriasis- Primary Other psoriasis Atopic neurodermatitis Other atopic dermatitis and related conditions Iron deficiency anemia, unspecified iron deficiency anemia type- Primary Iron deficiency anemia, unspecified iron deficiency anemia type Nutritional anemia, unspecified documented in this encounter Advance Directives Documents on File Type Date Recorded Patient Director Investment Banking Expl anation Advance Directives and Living Will [...] 10:58 AM 01/21/2008 1:40 PM Care Teams Steward/Stewardess Chief Cargo Vessel Relationship Specialty [place] [address] [place] [address] [place] [address] PCP - General Family Medicine 01/07/18 documented as of this encounter
--- OUTSIDE RECORDS SUMMARY | 2024-05-10 08:08 | External Medical Summary ---
Author Name Unknown Address Unknown Organization K09:[facility] [place] [address] Laboratory Report Ordering Provider Test Date Status ZAINAB DUMONT 05/06/2024 08:47:31 Final Observation Date Value Abnormality Reference (Units ) Status WBC, Total 05/06/2024 08:47:31 8.37 4.00-10.8 0 (K/uL) Final RBC 05/06/2024 08:47:31 3.88 4.50-5.25 (M/uL) Final Hemoglobin 05/06/2024 08:47:31 9.7 Below low normal 14 .0-16.8 (g/dL) Final HCT 05/06/2024 08:47:31 32.0 Below low normal 40. 0-48.4 (%) Final MCV 05/06/2024 08:47:31 82.5 82.0-99.5 (fL) Final MCH 05/06/2024 08:47:31 25.0 27.0-34.0 (pg) Final MCHC 05/06/2024 08:47:31 30.3 32.0-36.0 (g/dL) Final RDW 05/06/2024 08:47:31 15.3 11.5-15.5 (%) Final Platelets 05/06/2024 08:47:31 433 Above high normal 14 0-400 (K/uL) Final MPV 05/06/2024 08:47:31 8.7 6.6-11.1 ( fL) Final Performing Location [facility] [place] [address]
[2024-05-10] MEDS: MoRPHine SULFATE 2 MG/ML CARP ONE (08:09)
--- OUTSIDE RECORDS SUMMARY | 2024-05-10 08:09 | External Medical Summary | Summary of Care ---
Author Name Unknown Organization [facility] Address [address] [place] [address] Phone [phone] Care Team Providers Care Electrostatic Painter Name Role Phone Samanta Jung MD Primary Care Provider [phone] Reason for Visit * Reason Comments Phototherapy NBUVB 1723mj Encounter Details Date Type Department Care Team (Late st Contact Info) Description 04/27/2024 8:30 AM EDT Nurse Only Dermatology [facility] [address] [place] [address] Sp, Nurse Dermatology 200 [place] [address] Phototherapy (NBUVB 1401mo) Allergies Active Allergy Reactions Criticality Noted Date Comments Penicillins 02/24/2007 documented as of this encounter (statuses as of 04/27/2024) Medications Medication Sig Dispensed Refills Start Date [...] the morning. 90 Tablet 3 05/15/2023 Active Amiodarone HCl 200 MG Oral Tablet (Cordarone)Indicatio ns:Atrial fibrillation (HCC),Idiopathic cardiomyopathy (HCC) Take 1 Tablet by mouth 2 times a day with morning and evening meals. 11/12/2023 Active Furosemide 40 MG Oral Tablet (Lasix)Indications:I [...] Oral Tablet (sacubitril-valsarta n 49-51 mg per tab)Indications:Management Professional william systolic heart failure (HCC) Take 1 [...] the morning. 90 Tablet 3 04/13/2024 Active documented as of this encounter (statuses as of 04/27/2024) Active Problems Problem Noted Date Diagnosed Date Psoriasis 05/21/2021 Aortic root dilatation 03/16/2020 Idiopathic chronic gout of multiple sites felicitasou em tran 12/06/2018 Epistaxis, recurrent 06/22/2018 DM [...] as of this encounter (statuses as of 04/27/2024) Resolved Problems Problem Noted Date Diagnosed Date [...] as of this encounter (statuses as of 04/27/2024) Immunizations Name Administration Dates Next Due COVID-19 [...] as of this encounter Nursing Notes * Maria Ines Rubin CMA - 04/27/2024 8:32 AM EDT Chief Complaint Patient presents with Phototherapy NBUVB 1726mj No skin reaction from previous treatment. Areas of body covered or protected during treatment: eyesand genitals. Narrow Band UVB 1726millijoules. Patient receives treatment once weekly. Narrow Band UVB dose to be increased by 100 millijoules each treatment. Max dose 2500 documented in this encounter Plan of Treatment Upcoming Encounters Date Type Department Care Team (Late st Contact Info) Description 04/29/2024 8:30 AM EDT Nurse Only Dermatology [facility] [place] [address] [place] [address] Sp, Nurse Dermatology [address] [place] [address] 05/02/2024 8:30 AM EDT Nurse Only Dermatology [facility] [place] [address] [place] [address] Sp, Nurse Dermatology [address] [place] [address] 05/04/2024 8:00 AM EDT Cardiac Studies [facility] [place] [address] [place] [address] [place], Ekg [facility] [place] [address] 05/04/2024 8:30 AM EDT Office Visit Cardiology [facility], [place] [address] [place] [address] Claudia Cordova IV, MD [address] [place] [address] 05/06/2024 8:30 AM EDT Nurse Only Dermatology [facility] [place] [address] [place] [address] Sp, Nurse Dermatology 200 [facility] [place] [address] 06/23/2024 8:30 AM EST Office Visit Sleep Disorders Ctr [facility] [address] [facility] [phone] Rosalinda Ashton CRNP 132 [facility] [place] [address] 08/01/2024 8:00 AM EST Office Visit Cardiology, [facility] 132 [facility] [place] [address] Patricio Johnson MD [address] [place] [address] 08/05/2024 10:15 AM EST Office Visit Dermatology [facility] 200 [facility] [place] [address] Carl Munson MD 200 [facility] [place] [address] 10/05/2024 8:45 AM EDT Office Visit Cardiology [facility] [address] [place] [address] Uriel Byrne MD [address] [place], [place] [address] 12/05/2024 8:00 AM EDT Office Visit Rheumatology [facility] [address] [facility] [place] [address] Terell Ward MD [address] [employer] [place] [address] 02/20/2025 9:00 AM EDT Cardiac Studies Cardiology [facility] [address] [place], [place] [address] Clinic, Heart Rhythm Device [address] [place], [place] [address] Health Maintenance Due Date Last Done Comments [...] this encounter Medical Devices Implanted Type Area Ceramic Products Sales Engineer Device Identifier Shelf Expiration Date Model / Serial / Lot Cath Thermodilution 6fr - [id number] Implanted:Qty: 1 on 03/16/2024 by Veronica Vidal MD at [facility] [employer] NACHO [id number] 09/23/2025 [id number] / / [id number] documented as of this encounter Visit Diagnoses Diagnosis Atopic neurodermatitis- Primary Other atopic dermatitis and related conditions Psoriasis Other psoriasis documented in this encounter Advance Directives Documents on File Type Date Recorded Patient Doctor Osteopathic Expl anation Advance Directives and Living Will [...] 10:58 AM 01/21/2008 1:40 PM Care Teams Electrostatic Painter Relationship Specialty Start Date End Date Samanta Jung MD [address] [place] [address] [place] [address] PCP - General Family Medicine 01/07/18 documented as of this encounter
--- OUTSIDE RECORDS SUMMARY | 2024-05-10 08:09 | External Medical Summary | Summary of Care ---
Author Name Unknown Organization [facility] Address [address] [place] [address] Phone [phone] Care Team Providers Care Instrumentation Designer Name Role Phone Samanta Jung MD Primary Care Provider [phone] Reason for Visit * Reason Comments Phototherapy NBUVB 1626 mj Encounter Details Date Type Department Care Team (Late st Contact Info) Description 04/20/2024 8:30 AM EDT Nurse Only Dermatology [facility] [address] [place] [address] Sp, Nurse Dermatology 200 [place] [address] Phototherapy (NBUVB 1629 mj) Allergies Active Allergy Reactions Criticality Noted Date Comments Penicillins 02/24/2007 documented as of this encounter (statuses as of 04/20/2024) Medications Medication Sig Dispensed Refills Start Date [...] Oral Tablet (sacubitril-valsarta n 49-51 mg per tab)Indications:Set Decorator william systolic heart failure (HCC) Take 1 [...] as of this encounter (statuses as of 04/20/2024) Active Problems Problem Noted Date Diagnosed Date [...] as of this encounter (statuses as of 04/20/2024) Resolved Problems Problem Noted Date Diagnosed Date [...] as of this encounter (statuses as of 04/20/2024) Immunizations Name Administration Dates Next Due COVID-19 [...] Nursing Notes * Lulu Wellington LPN - 04/20/2024 8:34 AM EDT No skin reaction from previous treatment. Areas of body covered or protected during treatment: eyesand genitals. Narrow Band UVB 1626 millijoules. Patient receives treatment twice weekly. Narrow Band UVB dose to be increased by 100 millijoules each treatment. Max dose 2500 mj documented in this encounter Plan of Treatment Upcoming Encounters Date Type Department Care Team (Latest Contact Info) Description 04/20/2024 9:00 AM EDT Laboratory [facility] [place] [address] [place], [place] [address] Park, Lab Scenery [address] [facility] [place], [place] [address] Encounter for long-term (current) use of medications 04/25/2024 8:30 AM EDT Nurse Only Dermatology [place] [address] [place], [place] [address] Sp, Nurse Dermatology [address] [place], [place] [address] 04/25/2024 4:00 PM EDT Pharmacy Pharmacy, [address] [id number] Clinic, [place] [address] [place], [place] [address] 04/27/2024 8:30 AM EDT Nurse Only Dermatology [place] [address] [place], [place] [address] Sp, Nurse Dermatology [address] [place] [address] 04/29/2024 8:30 AM EDT Nurse Only Dermatology [place] [address] [place], [place] [address] Sp, Nurse Dermatology [address] [place] [address] 05/02/2024 8:30 AM EDT Nurse Only Dermatology [place] [address] [place] [address] Sp, Nurse Dermatology [address] [place] [address] 05/04/2024 8:00 AM EDT Cardiac Studies Cardiac Studies [facility] [place] [address] [place] [address] [place], E[facility] N [place], [place] [address] 05/04/2024 8:30 AM EDT Office Visit [facility] [place] [address] [place] [address] Claudia Cordova IV, MD [address] [place] [address] 05/06/2024 8:30 AM EDT Nurse Only Dermatology [facility] [address] [place] [address] Sp, Nurse Dermatology 200 [facility] [place] [address] 06/23/2024 8:30 AM EST Office Visit Sleep Disorders Ctr [facility] 132 [facility] [phone] Rosalinda Ashton CRNP 132 [place] [address] 08/01/2024 8:00 AM EST Office Visit Cardiology, [facility] 132 [place] [address] Patricio Johnson MD [address] [place] [address] 08/05/2024 10:15 AM EST Office Visit Dermatology [facility] 200 [facility] [place] [address] Carl Munson MD 200 [place] [address] 10/05/2024 8:45 AM EDT Office Visit [facility] [place] [address] [place] [address] Uriel Byrne MD [address] [place] [address] 12/05/2024 8:00 AM EDT Office Visit Rheumatology [address] [place] [address] Terell Ward MD [address] [place] [address] 02/20/2025 9:00 AM EDT Cardiac Studies Cardiology [facility] [place] [address] [place] [address] Clinic, Heart Rhythm Device [address] [place], [place] [address] Health Maintenance Due Date Last Done Comments [...] this encounter Medical Devices Implanted Type Area Automotive Service Cashier Device Identifier Shelf Expiration Date Model / Serial / Lot Cath Thermodilution 6fr - [id number] Implanted:Qty: 1 on 03/16/2024 by Veronica Vidal MD at [facility] [employer] [id number] 09/23/2025 [id number] / / [id number] documented as of this encounter Visit Diagnoses Diagnosis Psoriasis- Primary Other psoriasis Atopic neurodermatitis Other atopic dermatitis and related conditions Encounter for long-term (current) use of medications Encounter for long-term (current) use of other medications documented in this encounter Advance Directives Documents on File Type Date Recorded Patient Surveying Technician Expl anation Advance Directives and Living Will [...] 10:58 AM 01/21/2008 1:40 PM Care Teams Instrumentation Designer Relationship Specialty Start Date End Date Samanta Jung MD [address] [place] [address] [place] [address] PCP - General Family Medicine 01/07/18 documented as of this encounter
--- OUTSIDE RECORDS SUMMARY | 2024-05-10 08:09 | External Medical Summary | Summary of Care ---
Author Name Unknown Organization [facility] Address [address] [place] [address] Phone [phone] Care Team Providers Care Account Strategist Name Role Phone Samanta Jung MD Primary Care Provider [phone] Reason for Visit * Reason Comments Dosage Adjustment Via Phone (anticoag Cl inic) Anemia Follow-Up * Evaluate & Treat - Unlimited Visits (Within 10 days (routine)) - Authorized Specialty Diagnoses / Procedures Referred By Almaz t Referred To Contact Pharmacist / Pharmacy Diagnoses Iron deficiency anemia, unspecified iron deficiency anemia type Uriel Byrne MD [address] [place] [address] Referral ID Status Reason Start Date Expiration Date Visits Requested Visits Authorized [id number] Authorized Specialty Services Required 04/08/2024 10/05/2024 99 99 Encounter Details Date Type Department Care Team (Late st Contact Info) Description 04/25/2024 4:00 PM EDT Pharmacy Pharmacy, [place] [address], [place] [id number] Clinic, Anemia [address] [place], [place] [id number] Iron deficiency anemia, unspecified iron deficiency anemia [...] Oral Tablet (sacubitril-valsarta n 49-51 mg per tab)Indications:Parts Cleaner william systolic heart failure (HCC) Take 1 [...] as of this encounter Progress Notes * Gaston Terry, [facility] - 05/03/2024 3:43 PM EDT Patient Phone Numbers Patient referred by Dr Byrne for evaluation of anemia by the Anemia Clinic. LVM Called patient to introduce role/clinic and to review labs from 03/16/24. Hgb: 13.5 g/dL Hgb is within target range. Tentative Plan: repeat full iron panel labs Will call patient back in ~ 1 week unless patient calls back sooner Anemia Clinic will continue to follow. Thank you for allowing us to participate in the care of thispatient. Gaston Terry, Pharm.D Clinical Pharmacist [facility] Anemia Clinic (P: [phone]) 05/03/2024 3:44 PM documented in this encounter Plan of Treatment Upcoming Encounters Date Type Department Care Team (Late st Contact Info) Description 05/04/2024 8:00 AM EDT Cardiac Studies [facility], [place] [address] [place] [address] [place], E[place] [address] [place] [address] 05/04/2024 8:30 AM EDT Office Visit Cardiology [facility], [place] [address] [place] [address] Claudia Cordova IV, MD [address] [place] [address] 05/06/2024 8:30 AM EDT Nurse Only Dermatology [facility] [address] [place] [address] Sp, Nurse Dermatology 200 [facility] [place] [address] 05/10/2024 4:00 PM EST Pharmacy Pharmacy, [place] [address] [place] [address] Clinic, Anemia [address] [place] [address] 06/23/2024 8:30 AM EST Office Visit Sleep Disorders Ctr [facility] [address] [place] [phone] Rosalinda Ashton CRNP [address] [place] [address] 08/01/2024 8:00 AM EST Office Visit Cardiology, [facility] [place] [address] Patricio Johnson MD [address] [place] [address] 08/05/2024 10:15 AM EST Office Visit Dermatology [facility] 200 [facility] [place] [address] Carl Munson MD 200 [facility] [place], [place] [address] 10/05/2024 8:45 AM EDT [facility] [address] [place] [address] Uriel Byrne MD [address] [place] [address] 12/05/2024 8:00 AM EDT Office Visit Rheumatology [facility] [address] [facility] [place] [address] Terell Ward MD [address] [facility] [place], [place] [address] 02/20/2025 9:00 AM EDT Cardiac Studies Cardiology [facility], [place] [address], [place] [phone] Clinic, Heart Rhythm Device [address] [place], [place] [phone] Scheduled Referrals Name Type Priority Associated Diagnoses Orde r Schedule PHARMACIST MEDS THERAPY MGMT REFERRAL OP Referral Within 10 days (routine) Iron deficiency anemia, unspecified iron deficiency anemia type Ordered: 04/08/2024 Health Maintenance Due Date Last Done Comments [...] this encounter Medical Devices Implanted Type Area Registered Veterinary Technician Device Identifier Shelf Expiration Date Model / Serial / Lot Cath Thermodilution 6fr - [id number] Implanted:Qty: 1 on 03/16/2024 by Veronica Vidal [place] [facility] [employer] [id number] 09/23/2025 [id number] / / [id number] documented as of this encounter Visit Diagnoses Diagnosis Iron deficiency anemia, unspecified iron deficiency anemia type- Primary documented in this encounter Advance Directives Documents on File Type Date Recorded Patient Patient Sitter Expl anation Advance Directives and Living Will [...] 10:58 AM 01/21/2008 1:40 PM Care Teams Account Strategist Relationship Specialty Start Date End Date Samanta Jung MD [address] [place] [address] [place] [address] PCP - General Family Medicine 01/07/18 documented as of this encounter
--- OUTSIDE RECORDS SUMMARY | 2024-05-10 08:09 | External Medical Summary | Summary of Care ---
Author Name Unknown Organization [facility] Address [address] [place] [address] Phone [phone] Care Team Providers Care Servicenow Administrator Name Role Phone Samanta Jung MD Primary Care Provider [phone] Reason for Visit * Reason Comments eRx-Medication Refill Encounter Details Date Type Department Care Team (Late st Contact Info) Description 04/28/2024 Refill Cardiology, [facility] [address] [email or web address] [facility] [place] [address] Vera Ron PA-C [address] [email or web address] [facility] [place] [address] Idiopathic cardiomyopathy (HCC); Heart failure, systolic, due to idiopathic cardiomyopathy Allergies Active Allergy Reactions Criticality Noted Date Comments Penicillins 02/24/2007 documented as of this encounter (statuses as of 04/30/2024) Medications Medication Sig Dispensed Refills Start Date [...] the morning. 90 Tablet 3 3 Active Amiodarone HCl 200 MG Oral Tablet (Cordarone)Indicati ons:Atrial fibrillation (HCC),Idiopathic cardiomyopathy (HCC) Take 1 Tablet by mouth 2 times a day with morning and evening meals. 4 Active Furosemide 40 MG Oral Tablet (Lasix)Indications: [...] WITH DINNER 90 Tablet 3 4 Active Rivaroxaban 20 MG Oral Tablet (Xarelto)Indication s:Idiopathic cardiomyopathy (HCC),Heart failure, systolic, due to idiopathic cardiomyopathy (HCC) Take 1 Tablet by mouth daily with dinner. 90 Tablet 3 3 04/30/20 24 Discontinued documented as of this encounter (statuses as of 04/30/2024) Active Problems Problem Noted Date Diagnosed Date [...] as of this encounter (statuses as of 04/30/2024) Resolved Problems Problem Noted Date Diagnosed Date [...] as of this encounter (statuses as of 04/30/2024) Immunizations Name Administration Dates Next Due COVID-19 [...] encounter Miscellaneous Notes * Telephone Encounter - Fredis Mera RPh - 04/30/2024 3:03 PM EDTSigned Prescriptions: Disp Refills Xarelto 20 MG Oral Tablet (Rivaroxaban) 90 Tab*3 Sig: TAKE 1 TABLET DAILY WITH DINNERAuthorizing Provider: ARMANDO ERIC User: FREDIS MERA * Telephone Encounter - Fredis Mera RPh - 04/30/2024 2:54 PM EDT Crcl > 50 mL/min Fredis Norman PharmD Clinical Pharmacist [facility] 04/30/2024, 3:02 PM documented in this encounter Plan of Treatment Upcoming Encounters Date Type Department Care Team (Late st Contact Info) Description 05/02/2024 8:30 AM EDT Nurse Only Dermatology [place] [address] [place] [address] Sp, Nurse Dermatology [address] [place] [address] [place] [address] 05/04/2024 8:00 AM EDT Cardiac Studies [facility] [place] [address] [place] [address] [place], E[place] [address] [place], [place] [phone] 05/04/2024 8:30 AM EDT Office Visit [facility] [place] [address] [place] [address] Claudia Cordova IV, MD [address] [place], [place] [address] 05/06/2024 8:30 AM EDT Nurse Only Dermatology Lucina Dan [place] 200 [facility] [place] [address] Sp, Nurse Dermatology [address] [place] [address] [place] [address] 06/23/2024 8:30 AM EST Office Visit [facility] Disorders Ctr [facility] [address] [place] [phone] Rosalinda Ashton CRNP [address] [place] [address] 08/01/2024 8:00 AM EST Office Visit Cardiology, [facility] 132 [place] [address] Armando Eric MD [address] [place] [address] 08/05/2024 10:15 AM EST Office Visit Dermatology [facility] 200 [facility] [place] [address] Carl Munson MD 200 [place] [address] 10/05/2024 8:45 AM EDT Office Visit [facility], [place] [address] [place] [address] Uriel Byrne MD [address] [place] [address] 12/05/2024 8:00 AM EDT Office Visit Rheumatology [place] [address] [facility] [place] [address] Terell Ward MD [address] [place] [address] [place] [address] 02/20/2025 9:00 AM EDT Card[facility] [address] [place] [address] Clinic, Heart Rhythm Device [address] [place], [place] [address] Health Maintenance Due Date Last Done Comments [...] this encounter Medical Devices Implanted Type Area Space Physicist Device Identifier Shelf Expiration Date Model / Serial / Lot Cath Thermodilution 6fr - [id number] Implanted:Qty: 1 on 03/16/2024 by Veronica Vidal MD [place] [facility] [place] [employer] [id number] 09/23/2025 [id number] / / [id number] documented as of this encounter Visit Diagnoses Diagnosis Idiopathic cardiomyopathy (HCC) Other primary cardiomyopathies Heart failure, systolic, due to idiopathic cardiomyopathy Unspecified systolic heart failure documented in this encounter Advance Directives Documents on File Type Date Recorded Patient Plastic Tubing Insulation Supervisor Expl anation Advance Directives and Living [...] 10:58 AM 01/21/2008 1:40 PM Care Teams Servicenow Administrator Relationship Specialty [place] [address] [place], [place] [address] [address] PCP - General Family Medicine 01/07/18 documented as of this encounter
--- OUTSIDE RECORDS SUMMARY | 2024-05-10 08:09 | External Medical Summary | Summary of Care ---
Author Name Unknown Organization [facility] Address [address] [place] [address] Phone [phone] Care Team Providers Care Metal Hanging Helper Name Role Phone Samanta Jung MD Primary Care Provider [phone] Reason for Visit * Reason Comments Phototherapy NBUVB 1520mj Encounter Details Date Type Department Care Team (Late st Contact Info) Description 04/15/2024 8:30 AM EDT Nurse Only Dermatology [facility] [address] [place] [address] Sp, Nurse Dermatology 200 [place] [address] Phototherapy (NBUVB 1526mj) Allergies Active Allergy Reactions Criticality Noted Date Comments Penicillins 02/24/2007 documented as of this encounter (statuses as of 04/15/2024) Medications Medication Sig Dispensed Refills Start Date [...] Oral Tablet (sacubitril-valsarta n 49-51 mg per tab)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 Areas of body covered or protected during treatment: eyesand genitals. Narrow Band UVB 1520millijoules. Patient receives treatment twice weekly. Narrow BandUVB dose to be increased by 100 millijoules each treatment. Max dose 2500 documented in this encounter Plan of Treatment Upcoming Encounters Date Type Department Care Team (Late st Contact Info) Description 04/18/2024 8:30 AM EDT Nurse Only Dermatology [place] [address] [place] [address] Sp, Nurse Dermatology [address] [place] [address] 04/20/2024 8:30 AM EDT Nurse Only Dermatology [place] [place] [address] [place] [address] Sp, Nurse Dermatology [address] [place] [address] 04/22/2024 8:30 AM EDT Nurse Only [facility]ermatology [facility] [place] [address] [place] [address] Sp, Nurse Dermatology [address] [place] [address] 04/25/2024 8:30 AM EDT Nurse Only Dermatology [facility] [place] [address] [place], [place] [address] Sp, Nurse Dermatology [address] [place] [address] 04/25/2024 4:00 PM EDT Pharmacy Pharmacy, [address] [address] 04/27/2024 8:30 AM EDT Nurse Only Dermatology [facility] [place] [address] [place] [address] Sp, Nurse Dermatology [address] [place] [address] 04/29/2024 8:30 AM EDT Nurse Only Dermatology [facility] [place] [address] [place] [address] Sp, Nurse Dermatology [address] [place] [address] 05/02/2024 8:30 AM EDT Nurse Only Dermatology Lucina Dan [place] [address] [place] [address] Sp, Nurse Dermatology [address] [place] [address] 05/04/2024 8:00 AM EDT Cardiac Studies [facility] [place] [address] [place] [address] [place], Ekg [address] [place] [address] 05/04/2024 8:30 AM EDT Office Visit Cardiology [facility] [place] [address] [place] [address] Claudia Cordova IV, MD [address] [place], [place] [address] 05/06/2024 8:30 AM EDT Nurse Only Dermatology Lucina Dan [place] [address] [place] [address] Sp, Nurse Dermatology 200 [facility] [place] [address] 06/23/2024 8:30 AM EST Office Visit [facility] Disorders Ctr [facility] 132 [place] [phone] Rosalinda Ashton CRNP 132 [place] [address] 08/01/2024 8:00 AM EST Office Visit Cardiology, [facility] 132 [facility] [place] [address] Patricio Johnson MD [address] [place] [address] 08/05/2024 10:15 AM EST Office Visit [facility]at[facility] [place] [address] [place] [address] Carl Munson MD [address] [place] [address] 10/05/2024 8:45 AM EDT Office Visit Cardiology [facility] [place] [address] [place] [address] Uriel Byrne MD [address] [place] [address] 12/05/2024 8:00 AM EDT Office Visit Rheumatology [facility] [address] [employer] [place], [place] [address] Terell Ward MD [address] [employer] [place], [place] [address] 02/20/2025 9:00 AM EDT Cardiac Studies Cardiology [facility] [place] [address] [place] [address] Clinic, Heart Rhythm Device [address] [place], [place] [address] Health Maintenance Due Date Last Done Comments [...] Td or Tdap) 03/15/2023 03/15/2013 COVID-19 Vaccine (6 - 2024-25 season) 2024 06/02/2023, 05/27/2022, 06/05/2021, Additional history [...] this encounter Medical Devices Implanted Type Area Voip Network Technician Device Identifier Shelf Expiration Date Model / Serial / Lot Cath Thermodilution 6fr - [id number] Implanted:Qty: 1 on 03/16/2024 by Veronica Vidal [place] [facility] [employer] [id number] 09/23/2025 [id number] / / [id number] documented as of this encounter Visit Diagnoses Diagnosis Psoriasis- Primary Other psoriasis Atopic neurodermatitis Other atopic dermatitis and related conditions documented in this encounter Advance Directives Documents on File Type Date Recorded Patient Loss Control Consultant Expl anation Advance Directives and Living Will [...] 10:58 AM 01/21/2008 1:40 PM Care Teams Metal Hanging Helper Relationship Specialty Start Date End Date Samanta Jung MD [address] [place], [place] [address] [address] PCP - General Family Medicine 01/07/18 documented as of this encounter
--- OUTSIDE RECORDS SUMMARY | 2024-05-10 08:09 | External Medical Summary | Summary of Care ---
Author Name Unknown Organization [facility] Address [address] [place] [address] Phone [phone] Care Team Providers Care Deputy District Customs Director Name Role Phone Samanta Jung MD Primary Care Provider [phone] Reason for Visit * Reason Comments Outpatient Testing Encounter Details Date Type Department Care Team (Late st Contact Info) Description 04/20/2024 9:00 AM EDT Laboratory Laboratory [facility] [address] [place] [phone] [facility] [address] [place] [address] Encounter for long-term (current) use of medications Allergies Active Allergy Reactions Criticality Noted Date [...] Oral Tablet (sacubitril-valsarta n 49-51 mg per tab)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 systolic heart failure (HCC) Take 1 [...] Team (Late st Contact Info) Description 04/25/2024 8:30 AM EDT Nurse Only Dermatology Lucina Dan [place] 200 [facility] [place], [place] [address] Sp, Nurse Dermatology [address] [place] [address] 04/25/2024 4:00 PM EDT Pharmacy Pharmacy, [address] [address] 04/27/2024 8:30 AM EDT Nurse Only Dermatology [facility] [address] [place], [place] [address] Sp, Nurse Dermatology [address] [place] [address] 04/29/2024 8:30 AM EDT Nurse Only Dermatology [facility] [place] [address] [place] [address] Sp, Nurse Dermatology [address] [place], [place] [address] 05/02/2024 8:30 AM EDT Nurse Only Dermatology [facility] [place] [address] [place], [place] [address] Sp, Nurse Dermatology [address] [place] [address] 05/04/2024 8:00 AM EDT Cardiac Studies [facility] [place] [address] [place] [address] [place], [place] [address] [place] [address] 05/04/2024 8:30 AM EDT Office Visit Cardiology [facility] [place] [address] [place] [address] Claudia Cordova IV, MD [address] [place], [place] [address] 05/06/2024 8:30 AM EDT Nurse Only Dermatology [facility] [address] [place], [place] [address] Sp, Nurse Dermatology [address] [place], [place] [address] 06/23/2024 8:30 AM EST Office Visit [facility] Disorders [facility] [place] [address] Rosalinda Ashton CRNP [address] [place] [address] 08/01/2024 8:00 AM EST Office Visit Cardiology, [facility] [address] [place] [address] Patricio Johnson MD [address] [place] [address] 08/05/2024 10:15 AM EST Office Visit Dermatology [facility] 200 [facility] [place] [address] Carl Munson MD 200 [facility] [place] [address] 10/05/2024 8:45 AM EDT Office Visit Cardiology [facility] [address] [place] [address] Uriel Byrne MD [address] [place] [address] 12/05/2024 8:00 AM EDT Office Visit Rheumatology [facility] [address] [facility] [place], [place] [address] Terell Ward MD [address] [place] [address] 02/20/2025 9:00 AM EDT Card[facility] Studies [facility] [address] [place], [place] [phone] Clinic, Heart Rhythm Device [address] [place], [place] [phone] Pending Results Name Type Priority Associated Diagnoses Date /Time MAGNESIUM Lab Routine Encounter for long-term (current) use of medications 04/20/2024 8:42 AM EDT Health Maintenance Due Date Last [...] this encounter Medical Devices Implanted Type Area Hose Sprayer Device Identifier Shelf Expiration Date Model / Serial / Lot Cath Thermodilution 6fr - [id number] Implanted:Qty: 1 on 03/16/2024 by Veronica Vidal MD at [facility] [employer] [id number] 09/23/2025 [id number] / / [id number] documented as of this encounter Visit Diagnoses Diagnosis Encounter for long-term (current) use of medications Encounter for long-term (current) use of other medications documented in this encounter Advance Directives Documents on File Type Date Recorded Patient Deckhand Oyster Dredge Expl anation Advance Directives and Living Will [...] 10:58 AM 01/21/2008 1:40 PM Care Teams Deputy District Customs Director Relationship Specialty Start Date End Date Samanta Jung MD [address] [facility] [place] [address] PCP - General Family Medicine 01/07/18 documented as of this encounter
--- OUTSIDE RECORDS SUMMARY | 2024-05-10 08:09 | External Medical Summary ---
Author Name Unknown Address Unknown Organization K09[facility] [place] [address] Laboratory Report Ordering Provider Test Date Status TYESHA BECK 04/20/2024 08:42:07 Final Observation Date Value Abnormality Reference (Units ) Status Magnesium 04/20/2024 08:42:07 2.0 1.5-2.6 (m g/dL) Final Performing Location [facility] [place] [address]
--- OUTSIDE RECORDS SUMMARY | 2024-05-10 08:09 | External Medical Summary | Summary of Care ---
Author Name Unknown Organization [facility] Address [address] [place] [address] Phone [phone] Care Team Providers Care High Lift Driver Name Role Phone Samanta Jung MD Primary Care Provider [phone] Reason for Visit * Reason Onset Date Comments Medication Refill 04/11/2024 Encounter Details Date Type Department Care Team (Late st Contact Info) Description 04/11/2024 Refill Cardiology [facility] [address] [place] [address] Rocky Mckeon MD [address] [place] [address] Encounter for long-term (current) use of medications*; Heart failure, systolic, due to idiopathic cardiomyopathy; Idiopathic cardiomyopathy (HCC) Allergies Active Allergy Reactions [...] 01/14/2024 Active Entresto 49-51 MG Oral Tablet (sacubitril-valsart [...] 04/13/2024 Active Spironolactone 25 MG Oral Tablet (Aldactone)Indicati ons:Idiopathic cardiomyopathy (HCC) Take 1 Tablet by mouth in the morning. 90 Tablet 3 04/13/2024 Active Magnesium Oxide 400 (240 Mg) MG Oral Tablet (Mag-Ox)Indications :Heart failure, systolic, due to idiopathic cardiomyopathy (HCC) TAKE 1 TABLET BY MOUTH ONCE DAILY 90 Tablet 3 08/05/2022 4 Discontinu ed(Refill) Spironolactone 25 MG Oral Tablet (Aldactone)Indicati ons:Idiopathic cardiomyopathy (HCC) Take 1 Tablet by mouth in the morning. 90 Tablet 3 05/14/2023 4 Discontinu ed(Refill) documented as of this encounter [...] encounter Miscellaneous Notes * Telephone Encounter - Berna, Care Chhaya - 04/15/2024 7:26 PM EDT Received message from [facility] regarding patient needing labs. Patient was notified. Successfully contacted patient and provided [facility] message. * Telephone Encounter - Ebony Arambula RP - 04/13/2024 10:52 AM EDTSigned Prescriptions: Disp Refills Magnesium Oxide -Mg Supplement 400 (240 Mg*90 Tab*0 Sig: Take 1 Tablet by mouth in the morning. Authorizing Provider: ROCKY MCKEON Ordering User: EBONY ARAMBULA Spironolactone 25 MG Oral Tablet (Aldacton*90 Tab*3 Sig: Take 1 Tablet by mouth in the morning. Authorizing Provider: ROCKY MCKEON Ordering User: EBONY ARAMBULA< BR> * Telephone Encounter - Ebony Arambula [facility] - 04/13/2024 10:51 AM EDT Magnesium: Provided 90 days supply with 0 refill(s). Per refill protocol patient should have Magnesium level on file within past year. Please contact patient to advise of labs ordered for blood draw. Fasting is not required. Advise toobtain labs before requesting the next refill. Thank you, Ebony Arambula, PharmD Clinical Pharmacist [facility] [phone] 04/13/2024, 10:51 AM documented in this encounter Plan of Treatment Upcoming Encounters Date Type Department Care Team (Late st Contact Info) Description 04/18/2024 8:30 AM EDT Nurse Only Dermatology [place] [place] [address] [place] [address] Sp, Nurse Dermatology [address] [place], [place] [address] 04/20/2024 8:30 AM EDT Nurse Only Dermatology [place] [address] [place], [place] [address] Sp, Nurse Dermatology [address] [place] [address] 04/22/2024 8:30 AM EDT Nurse Only Dermatology [place] [address] [place] [address] Sp, Nurse Dermatology [address] [place] [address] 04/25/2024 8:30 AM EDT Nurse Only Dermatology [place] [address] [place], [place] [address] Sp, Nurse Dermatology [address] [place], [place] [address] 04/25/2024 4:00 PM EDT Pharmacy Pharmacy, [address] [id number] Clinic, [address] [address] 04/27/2024 8:30 AM EDT Nurse Only Dermatology [facility] [place] [address] [place], [place] [address] Sp, Nurse Dermatology [address] [place] [address] 04/29/2024 8:30 AM EDT Nurse Only Dermatology [place] [address] [place] [address] Sp, Nurse Dermatology [address] [place] [address] 05/02/2024 8:30 AM EDT Nurse Only Dermatology [place] [address] [place] [address] Sp, Nurse Dermatology [address] [place] [address] 05/04/2024 8:00 AM EDT Cardiac Studies [facility] [place] [address] [facility] [place] [address] [place], Ekg [address] [place] [address] 05/04/2024 8:30 AM EDT Office Visit Cardiology [facility] [place] [address] [place] [address] Claudia Cordova IV, MD [address] [place], [place] [id number] 05/06/2024 8:30 AM EDT Nurse Only Dermatology [facility] [address] [place] [address] Sp, Nurse Dermatology 200 [facility] [place] [address] 06/23/2024 8:30 AM EST Office Visit Sleep Disorders Ctr [facility] [place] [id number] Rosalinda Ashton CRNP 132 [facility] [place] [address] 08/01/2024 8:00 AM EST Office Visit Cardiology, [facility] 132 [facility] [place] [address] Patricio Johnson MD [address] [place] [address] 08/05/2024 10:15 AM EST Office Visit Dermatology [facility] [address] [place] [address] Carl Munson MD [address] [place] [address] 10/05/2024 8:45 AM EDT Office Visit Cardiology [facility] [place] [address] [place] [address] Rocky Mckeon MD [address] [place] [address] 12/05/2024 8:00 AM EDT Office Visit Rheumatology [place] [address] [place] [address] Terell Ward MD [facility] [place] [address] 02/20/2025 9:00 AM EDT Cardiac Studies Cardiology [facility] [address] [place] [address] Clinic, Heart Rhythm Device [address] [place] [address] Scheduled Orders Name Type Priority Associated Diagnoses Orde r Schedule MAGNESIUM Lab Routine Encounter for long-term (current) use of medications Expected: 04/20/2024 (Approximate), Expires: 04/13/2025 Health Maintenance Due Date Last Done Comments [...] this encounter Medical Devices Implanted Type Area Security Messenger Device Identifier Shelf Expiration Date Model / Serial / Lot Cath Thermodilution 6fr - [id number] Implanted:Qty: 1 on 03/16/2024 by Veronica Vidal MD at [facility] [employer] [id number] 09/23/2025 [id number] / / [id number] documented as of this encounter Visit Diagnoses Diagnosis Encounter for long-term (current) use of medications- Primary Encounter for long-term (current) use of other medications Heart failure, systolic, due to idiopathic cardiomyopathy Unspecified systolic heart failure Idiopathic cardiomyopathy (HCC) Other primary cardiomyopathies documented in this encounter Advance Directives Documents on File Type Date Recorded Patient Surgical Instruments Inspector Expl anation Advance Directives and Living [...] 10:58 AM 01/21/2008 1:40 PM Care Teams High Lift Driver Relationship Specialty Start Date End Date Samanta Jung MD [address] [place] [address] [place] [address] PCP - General Family Medicine 01/07/18 documented as of this encounter
--- OUTSIDE RECORDS SUMMARY | 2024-05-10 08:09 | External Medical Summary | Summary of Care ---
Author Name Unknown Organization [facility] Address [address] [place] [address] Phone [phone] Care Team Providers Care Packing Shed Supervisor Name Role Phone Samanta Jung MD Primary Care Provider [phone] Reason for Visit * Reason Comments Phototherapy NBUVB 1936 mj Encounter Details Date Type Department Care Team (Late st Contact Info) Description 05/02/2024 8:30 AM EDT Nurse Only Dermatology [facility] [address] [place] [address] Sp, Nurse Dermatology 200 [place] [address] Phototherapy (NBUVB 1938 mj) Allergies Active Allergy Reactions Criticality Noted Date Comments Penicillins 02/24/2007 documented as of this encounter (statuses as of 05/02/2024) Medications Medication Sig Dispensed Refills Start Date [...] Oral Tablet (sacubitril-valsarta n 49-51 mg per tab)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 Areas of body covered or protected during treatment: eyesand genitals. Narrow Band UVB 1936 millijoules. Patient receives treatment twice weekly. Narrow Band UVB dose to be increased by 100 millijoules each treatment. Max dose 2500 mj documented in this encounter Plan of Treatment Upcoming Encounters Date Type Department Care Team (Late st Contact Info) Description 05/04/2024 8:00 AM EDT Cardiac Studies [facility] [place] [address] [place] [address] [place], E[place] [address] [place] [address] 05/04/2024 8:30 AM EDT Office Visit Cardiology [facility] [place] [address] [place] [address] Claudia Cordova IV, MD [address] [place] [address] 05/06/2024 8:30 AM EDT Nurse Only Dermatology [facility] [address] [place] [address] Sp, Nurse Dermatology 200 [facility] [place] [address] 06/23/2024 8:30 AM EST Office Visit Sleep Disorders Ctr [facility] 132 [place] [phone] Rosalinda Ashton CRNP 132 [place] [address] 08/01/2024 8:00 AM EST Office Visit Cardiology, [facility] 132 [place] [address] Patricio Johnson MD [facility] [place] [address] 08/05/2024 10:15 AM EST Office Visit Dermatology [facility] [address] [place] [address] Carl Munson MD 200 [facility] [place] [address] 10/05/2024 8:45 AM EDT Office Visit Cardiology [facility] [place] [address] [place] [address] Uriel Byrne MD [address] [place] [address] 12/05/2024 8:00 AM EDT Office Visit Rheumatology [facility] 2520 [facility] [place] [address] Terell Ward MD [address] [employer] [place], [place] [address] 02/20/2025 9:00 AM EDT Cardiac Studies Cardiology [facility] [address] [place] [address] Clinic, Heart Rhythm Device [address] [place], [place] [address] Health Maintenance Due Date Last Done Comments [...] Additional history exists Lipid Panel 09/11/2026 09/11/2021, 01/0 09/2021, 01/14/2021, Additional history exists Pneumococcal Vaccine: [...] this encounter Medical Devices Implanted Type Area Commercial Tire Service Technician Device Identifier Shelf Expiration Date Model / Serial / Lot Cath Thermodilution 6fr - [id number] Implanted:Qty: 1 on 03/16/2024 by Veronica Vidal MD at [facility] [employer] [id number] 09/23/2025 [id number] / / [id number] documented as of this encounter Visit Diagnoses Diagnosis Psoriasis- Primary Other psoriasis Atopic neurodermatitis Other atopic dermatitis and related conditions documented in this encounter Advance Directives Documents on File Type Date Recorded Patient Stock Shipper Expl anation Advance Directives and Living Will [...] 10:58 AM 01/21/2008 1:40 PM Care Teams Packing Shed Supervisor Relationship Specialty Start Date End Date Samanta Jung MD [address] [place] [address] [place] [address] PCP - General Family Medicine 01/07/18 documented as of this encounter
--- OUTSIDE RECORDS SUMMARY | 2024-05-10 08:09 | External Medical Summary | Summary of Care ---
Author Name Unknown Organization [facility] Address [address] [place] [address] Phone [phone] Care Team Providers Care Cryogenics Engineer Name Role Phone Samanta Jung MD Primary Care Provider Reason for Visit * Reason Comments Phototherapy NBUVB 9375mh Encounter Details Date Type Department Care Team (Late st Contact Info) Description 04/29/2024 8:30 AM EDT Nurse Only Dermatology [facility] [address] [place] [address] Sp, Nurse Dermatology 200 [place] [address] Phototherapy (NBUVB 7100zp) Allergies Active Allergy Reactions Criticality Noted Date Comments Penicillins 02/24/2007 documented as of this encounter (statuses as of 04/29/2024) Medications Medication Sig Dispensed Refills Start Date [...] Oral Tablet (sacubitril-valsarta n 49-51 mg per tab)Indications:Data Visualization Developer william systolic heart failure (HCC) Take 1 [...] as of this encounter (statuses as of 04/29/2024) Active Problems Problem Noted Date Diagnosed Date [...] as of this encounter (statuses as of 04/29/2024) Resolved Problems Problem Noted Date Diagnosed Date [...] as of this encounter (statuses as of 04/29/2024) Immunizations Name Administration Dates Next Due COVID-19 [...] Notes * Maria Ines Rubin CMA - 04/29/2024 8:41 AM EDT Chief Complaint Patient presents with Phototherapy NBUVB 1827mj No skin reaction from previous treatment. Areas of body covered or protected during treatment: eyesand genitals. Narrow Band UVB 1827millijoules. Patient receives treatment twice weekly. Narrow BandUVB dose to be increased by 100 millijoules each treatment. Max dose 2500 documented in this encounter Plan of Treatment Upcoming Encounters Date Type Department Care Team (Late st Contact Info) Description 05/02/2024 8:30 AM EDT Nurse Only Dermatology [facility] [place] [address] [place] [address] Sp, Nurse Dermatology 200 [facility] [place] [address] 05/04/2024 8:00 AM EDT Cardiac Studies [facility] [place] [address] [place] [address] [place], Ekg [address] [place], [place] [address] 05/04/2024 8:30 AM EDT Office Visit Cardiology [facility] [place] [address] [place], [place] [address] Claudia Cordova IV, MD [address] [place], [place] [address] 05/06/2024 8:30 AM EDT Nurse Only Dermatology [place] [address] [place] [address] Sp, Nurse Dermatology 200 [facility] [place] [address] 06/23/2024 8:30 AM EST Office Visit Sleep Disorders Ctr [facility] 132 [facility] [place] [phone] Rosalinda Ashton CRNP 132 [facility] [place] [address] 08/01/2024 8:00 AM EST Office Visit Cardiology, [facility] 132 [facility] [place] [address] Patricio Johnson MD 132 [facility] [place] [address] 08/05/2024 10:15 AM EST Office Visit [facility] [place] [address] [place] [address] Carl Munson MD [address] [place] [address] 10/05/2024 8:45 AM EDT Office Visit Cardiology [facility] [address] [place] [address] Car[place], Uriel Chavez MD [address] [place] [address] 12/05/2024 8:00 AM EDT Office Visit Rheumatology [facility] [address] [place] [address] Terell Ward MD [address] [place] [address] 02/20/2025 9:00 AM EDT Cardiac Studies Cardiology [facility] [address] [place] [address] Clinic, Heart Rhythm Device [address] [place] [address] Health Maintenance Due Date Last Done Comments [...] this encounter Medical Devices Implanted Type Area Ad Operations Intern Device Identifier Shelf Expiration Date Model / Serial / Lot Cath Thermodilution 6fr - [id number] Implanted:Qty: 1 on 03/16/2024 by Veronica Vidal MD at [facility] [employer] NACHO [id number] 09/23/2025 [id number] / / [id number] documented as of this encounter Visit Diagnoses Diagnosis Psoriasis- Primary Other psoriasis Atopic neurodermatitis Other atopic dermatitis and related conditions documented in this encounter Advance Directives Documents on File Type Date Recorded Patient Product Safety Administrator Expl anation Advance Directives and Living Will [...] 10:58 AM 01/21/2008 1:40 PM Care Teams Cryogenics Engineer Relationship Specialty Start Date End Date Samanta Jung MD [address] [place] [address] [place] [address] PCP - General Family Medicine 01/07/18 documented as of this encounter
[2024-05-10] MEDS: NITROGLYCERIN 2% OINTMENT 30GM TUBE EXT ONE (08:10)
--- OUTSIDE RECORDS SUMMARY | 2024-05-10 08:10 | External Medical Summary | Summary of Care ---
Author Name Unknown Organization [facility] Address [address] [place] [address] Phone [phone] Care Team Providers Care Neurosurgical Nurse Practitioner Name Role Phone Samanta Jung MD Primary Care Provider [phone] Reason for Visit * Reason Comments Phototherapy NBUVB 1415 mj Encounter Details Date Type Department Care Team (Late st Contact Info) Description 04/11/2024 8:30 AM EDT Nurse Only Dermatology [facility] [address] [place] [address] Sp, Nurse Dermatology 200 [place] [address] Phototherapy (NBUVB 1415 mj) Allergies Active Allergy Reactions Criticality Noted Date Comments Penicillins 02/24/2007 documented as of this encounter (statuses as of 04/11/2024) Medications Medication Sig Dispensed Refills Start Date [...] Oral Tablet (sacubitril-valsarta n 49-51 mg per tab)Indications:Switch Coupler william systolic heart failure (HCC) Take 1 Tablet by mouth in the morning and 1 Tablet before bedtime. 180 Tablet 3 02/16/2024 Active documented as of this encounter (statuses as of 04/11/2024) Active Problems Problem Noted Date Diagnosed Date [...] as of this encounter (statuses as of 04/11/2024) Resolved Problems Problem Noted Date Diagnosed Date [...] as of this encounter (statuses as of 04/11/2024) Immunizations Name Administration Dates Next Due COVID-19 [...] Nursing Notes * Lulu Wellington LPN - 04/11/2024 8:42 AM EDT No skin reaction from previous treatment. Areas of body covered or protected during treatment: eyesand genitals. Narrow Band UVB 1415 millijoules. Patient receives treatment twice weekly. Narrow Band UVB dose to be increased by 100 millijoules each treatment. Max dose 2500 mj documented in this encounter Plan of Treatment Upcoming Encounters Date Type Department Care Team (Late st Contact Info) Description 04/13/2024 8:30 AM EDT Nurse Only Dermatology [place] [address] [place] [address] Sp, Nurse Dermatology [address] [place] [address] 04/15/2024 8:30 AM EDT Nurse Only Dermatology [place] [address] [place] [address] Sp, Nurse Dermatology [address] [place] [address] 04/18/2024 8:30 AM EDT Nurse Only Dermatology [place] [address] [place] [address] Sp, Nurse Dermatology [address] [place] [address] 04/20/2024 8:30 AM EDT Nurse Only [facility]ermatology [facility] [place] [address] [place] [address] Sp, Nurse Dermatology [address] [place] [address] 04/22/2024 8:30 AM EDT Nurse Only Dermatology [place] [address] [place] [address] Sp, Nurse Dermatology [address] [place] [address] 04/25/2024 8:30 AM EDT Nurse Only Dermatology [place] [address] [place] [address] Sp, Nurse Dermatology [address] [place] [address] 04/25/2024 4:00 PM EDT Pharmacy Pharmacy, [address] [address] 04/27/2024 8:30 AM EDT Nurse Only Dermatology [place] [address] [place] [address] Sp, Nurse Dermatology [address] [place] [address] 04/29/2024 8:30 AM EDT Nurse Only Dermatology [facility] [place] [address] [place], [place] [address] Sp, Nurse Dermatology [address] [place] [address] 05/02/2024 8:30 AM EDT Nurse Only Dermatology [facility] [place] [address] [place] [address] Sp, Nurse Dermatology [address] [place], [place] [address] 05/04/2024 8:00 AM EDT Cardiac Studies [facility] [place] [address] [place] [address] [place], Ekg [address] [place] [address] 05/04/2024 8:30 AM EDT Office Visit Cardiology [facility] [address] [place], [place] [phone] Claudia Cordova IV, MD [address] [place] [address] 05/06/2024 8:30 AM EDT Nurse Only Dermatology [facility] [place] [address] [place], [place] [address] Sp, Nurse Dermatology [address] [place] [address] 06/23/2024 8:30 AM EST Office Visit Sleep Disorders Ctr [facility] [place], [place] [facility] [phone] Rosalinda Ashton CRNP 132 [facility] [place] [address] 08/01/2024 8:00 AM EST Office Visit Cardiology, [facility] [address] [place] [address] Patricio Johnson MD [address] [place] [address] 08/05/2024 10:15 AM EST Office Visit Dermatology [facility] [address] [place] [address] Carl Munson MD [address] [place] [address] 10/05/2024 8:45 AM EDT Office Visit Cardiology [facility] [address] [place] [address] Uriel Byrne MD [address] [place] [address] 12/05/2024 8:00 AM EDT Office Visit Rheumatology [facility] 2520 [place] [address] Terell Ward MD [address] [place] [address] 02/20/2025 9:00 AM EDT Cardiac Studies Cardiology [facility] [address] [place] [address] Clinic, Heart Rhythm Device [address] [place] [address] Health Maintenance Due Date Last Done Comments [...] this encounter Medical Devices Implanted Type Area Production Control Scheduler Device Identifier Shelf Expiration Date Model / Serial / Lot Cath Thermodilution 6fr - [id number] Implanted:Qty: 1 on 03/16/2024 by Veronica Vidal [place] [facility] [employer] [id number] 09/23/2025 [id number] / / [id number] documented as of this encounter Visit Diagnoses Diagnosis Psoriasis- Primary Other psoriasis Atopic neurodermatitis Other atopic dermatitis and related conditions documented in this encounter Advance Directives Documents on File Type Date Recorded Patient Vaccine Manager Expl anation Advance Directives and Living [...] 10:58 AM 01/21/2008 1:40 PM Care Teams Neurosurgical Nurse Practitioner Relationship Specialty Start Date End Date Samanta Jung MD [address] [place] [address] [place] [address] PCP - General Family Medicine 01/07/18 documented as of this encounter
--- OUTSIDE RECORDS SUMMARY | 2024-05-10 08:10 | External Medical Summary | Summary of Care ---
Author Name Unknown Organization [facility] Address [address] [place] [address] Phone [phone] Care Team Providers Care City Dispatcher Name Role Phone Samanta Jung MD Primary Care Provider [phone] Reason for Visit * Reason Comments Phototherapy [id number] [id number] Encounter Details Date Type Department Care Team (Late st Contact Info) Description 04/15/2024 8:30 AM EDT Nurse Only Dermatology [facility] [address] [place] [address] Sp, Nurse Dermatology 200 [place] [address] Phototherapy (NBUVB [id number]) Allergies Active Allergy Reactions Criticality Noted Date [...] Oral Tablet (sacubitril-valsarta n 49-51 mg per tab)Indications:Director Radio william systolic heart failure (HCC) Take 1 [...] AM EDT Nurse Only Dermatology [facility] [place] [address] [place] [address] Sp, Nurse Dermatology [address] [place] [address] 04/20/2024 8:30 AM EDT Nurse Only Dermatology [facility] [place] [address] [place] [address] Sp, Nurse Dermatology [address] [place] [address] 04/22/2024 8:30 AM EDT Nurse Only Dermatology [facility] [place] [address] [place] [address] Sp, Nurse Dermatology [address] [place] [address] 04/25/2024 8:30 AM EDT Nurse Only Dermatology [facility] [place] [address] [place], [place] [address] Sp, Nurse Dermatology [address] [place] [address] 04/25/2024 4:00 PM EDT Pharmacy Pharmacy, [address] [address] 04/27/2024 8:30 AM EDT Nurse Only Dermatology [facility] [place] [address] [place] [address] Sp, Nurse Dermatology [address] [place] [address] 04/29/2024 8:30 AM EDT Nurse Only Dermatology [facility] [place] [address] [place] [address] Sp, Nurse Dermatology [address] [place] [address] 05/02/2024 8:30 AM EDT Nurse Only Dermatology Lucina Dan [place] [address] [place] [address] Sp, Nurse Dermatology [address] [place] [address] 05/04/2024 8:00 AM EDT Cardiac Studies [facility] [place] [address] [place] [address] [place], Ekg [address] [place] [address] 05/04/2024 8:30 AM EDT Office Visit Cardiology [facility] [place] [address] [place] [address] Claudia Cordova IV, MD [address], [place] [id number] 05/06/2024 8:30 AM EDT Nurse Only Dermatology [facility] [place] [address] [place] [address] Sp, Nurse Dermatology 200 [facility] [place] [address] 06/23/2024 8:30 AM EST Office Visit Sleep Disorders Ctr [facility] [address] [facility] [id number] Rosalinda Ashton CRNP 132 [facility] [place] [address] 08/01/2024 8:00 AM EST Office Visit Cardiology, [facility] 132 [facility] [place] [address] Patricio Johnson MD [address] [place] [address] 08/05/2024 10:15 AM EST Office Visit D[facility]atology [facility] [place] [address] [place] [address] Carl Munson MD [address] [place] [address] 10/05/2024 8:45 AM EDT Office Visit Cardiology [facility] [place] [address] [place] [address] Uriel Byrne MD [address] [place] [address] 12/05/2024 8:00 AM EDT Office Visit Rheumatology [facility] [address] [place], [place] [address] Terell Ward MD [address] [place], [place] [address] 02/20/2025 9:00 AM EDT Cardiac Studies Cardiology [facility], [place] [address] [place] [address] Clinic, Heart Rhythm Device [address] [place], [place] [id number] Health Maintenance Due Date Last Done Comments [...] this encounter Medical Devices Implanted Type Area Bag Checker Device Identifier Shelf Expiration Date Model / Serial / Lot Cath Thermodilution 6fr - [id number] Implanted:Qty: 1 on 03/16/2024 by Veronica Vidal MD [place] [facility] [employer] [id number] 09/23/2025 [id number] / / [id number] documented as of this encounter Visit Diagnoses Diagnosis Psoriasis- Primary Other psoriasis Atopic neurodermatitis Other atopic dermatitis and related conditions documented in this encounter Advance Directives Documents on File Type Date Recorded Patient Bowling Or Skating Front Desk Clerk Expl anation Advance Directives and Living [...] 10:58 AM 01/21/2008 1:40 PM Care Teams City Dispatcher Relationship Specialty Start Date End Date Samanta Jung MD [address] [place], [place] [address] [address] PCP - General Family Medicine 01/07/18 documented as of this encounter
--- OUTSIDE RECORDS SUMMARY | 2024-05-10 08:10 | External Medical Summary | Summary of Care ---
Author Name Unknown Organization [facility] Address [address] [place] [address] Phone [phone] Care Team Providers Care Armament Installer Name Role Phone Samanta Jung MD Primary Care Provider [phone] Reason for Visit * Reason Onset Date Comments Follow Up Medication Administration 04/08/2024 Flu an d/or Pneumo Inj Encounter Details Date Type Department Care Team (Late st Contact Info) Description 04/08/2024 9:00 AM EDT Office Visit Cardiology [facility] [address] [place], [place] [id number] Uriel Byrne MD [address] [place] [address] Need for prophylactic vaccination and inoculation against influenza* Allergies Active Allergy Reactions Criticality Noted Date Comments Penicillins 02/24/2007 documented as of this encounter (statuses as of 04/08/2024) Medications Medication Sig Dispensed Refills Start Date [...] Oral Tablet (sacubitril-valsarta n 49-51 mg per tab)Indications:Voice Systems Engineer william systolic heart failure (HCC) Take 1 Tablet by mouth in the morning and 1 Tablet before bedtime. 180 Tablet 3 02/16/2024 Active documented as of this encounter (statuses as of 04/08/2024) Active Problems Problem Noted Date Diagnosed Date [...] as of this encounter (statuses as of 04/08/2024) Resolved Problems Problem Noted Date Diagnosed Date [...] as of this encounter (statuses as of 04/08/2024) Immunizations Name Administration Dates Next Due COVID-19 [...] Date Smoking Tobacco: Never Smokeless Tobacco: Never Tobacco Cessation:Counseling Given: Not Answered Alcohol Use Standard Drinks/Week Comments No 0 [...] on file documented as of this encounter Last Filed Vital Signs Vital Sign Reading Time Taken Comments Blood Pressure 110/58 04/08/2024 8:46 AM EDT Pulse 66 04/08/2024 8:46 AM EDT Temperature - - Respiratory Rate - - Oxygen Saturation 99% 04/08/2024 8:46 AM EDT Inhaled Oxygen Concentration - - Weight 102.2 kg (225 lb 4.8 oz) 04/08/2024 8:46 AM EDT Height 182.9 cm (6') 04/08/2024 8:46 AM EDT Body Mass Index 30.56 04/08/2024 8:46 AM EDT documented in this encounter Functional Status Functional Status Response [...] No 09/26/2016 documented as of this encounter Patient Instructions * Patient Instructions* Charmaine Arvizu LPN - 04/08/2024 8:52 AM EDT ~~PATIENT INSTRUCTIONS FOR FLU SHOT~~ Possible side effects of influenza vaccine, (flu shot), are usually mild and include: 1. Soreness or redness at injection site 2. Low grade fever 3. Body aches You may use Tylenol/Acetaminophen as needed for these symptoms. LET YOUR DOCTOR KNOW IMMEDIATELY IF YOU HAVE DIFFICULTY BREATHING OR SWALLOWING, EXPERIENCE ITCHINGOF FEET OR HANDS, HAVE SWELLING OF EYES, FACE OR INSIDE OF NOSE. documented in this encounter Progress Notes * Uriel Byrne MD - 04/08/2024 9:16 AM EDT Advanced Heart Failure Clinic Note HPI: This is a 48 year old man with a pmhx of HFrEF 2/2 NICMP since at least 2006, who has been referredfor worsening heart failure. He recently was admitted in November 2023 for acute exacerbation of HFrEF 2/2 Afib with RVR. In December, he was admitted for syncope 2/2 VT. As per his Medtronic device record, he had a 44 second run of VT at 250 bpm on 12/06/23 which resolved spontaneously and therapy was aborted (he lost consciousness during this episode). Apparently he had another syncopal episode 2 weeks ago. He is currently NYHA Class II-III functional status. 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 He denies chest pain. No N/V/BUSH; afebrile. He has history of appropriate ICD shocks (07/2010, 06/2012, 10/2013). He tells me he recently had a syncopal episode 2 weeks ago while engaging in intercourse (does not think he was shocked; lost consciousness for approximately 30 seconds). He is uncertain of hisfamily history as he is adopted. 1. 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 Class 2-3 congestive heart failure [place] [employer]. 3. Status post prophylactic pacer defibrillator implantation single chamber January 2008. Last generator exchange June 26, 2015 Medtronic, model -Evera XT VR [id number] 4. Past history of sustained ventricular tachycardia, appropriate device activation most recent discharge 2015 5. Paroxysmal and intermittently persistent atrial fibrillation. 6. Hospitalizations with acute pulmonary edema x3 in association with atrial fibrillation with rapid response and acute presentation following elective synchronized electrical cardioversion. Most recent event November 04, 2023 7. Status post synchronized electrical cardioversion on 10/14/2016, November 06, 2023, November 10, 2023 8. Dilated aortic root and ascending aorta 9. Obstructive sleep apnea on CPAP supplementation (04/08/24) Doing well since last visit Underwent a coronary angiogram and RHC No coronary artery disease and normal intracardiac filling pressures with normal resting CO NYHA Class II, Stage C PMHx: Past Medical History: Diagnosis Date Atrial fibrillation (HCC) CHF NYHA class II (HCC) Encounter for long-term current use of medication Gout Hyperlipidemia Hypertension Idiopathic cardiomyopathy (HCC) Obesity, Class I, BMI 30.0-34.9 (see actual BMI) Other psoriasis Psoriatic arthritis (HCC) Sleep apnea Type 2 diabetes mellitus (HCC) PSHx: Past Surgical History: Procedure Laterality Date INSERT/REPLACE DEFIBRILLATOR W/TRANSVERSE LEAD(S) 01/20/08 NON-THOR ICD LEADS AND GENERATOR IMPLANT performed by SUKHWINDER COTTER at [facility] [place] REPAIR OF KNEE LIGAMENT/CAPSULE ACL, Open SHx: Social History Socioeconomic History Marital status: Single Spouse name: Not on file Number of children: 0 Years of education: Not on file Highest education level: Not on file Occupational History Not on file Tobacco Use Smoking status: Never Smokeless tobacco: Never Vaping Use Vaping status: Never Used Substance and Sexual Activity Alcohol use: No Drug use: No Sexual activity: Not on file Other Topics Concern Not on file Social History Narrative Not on file Social Determinants of Health Financial Resource Strain: Not on file Food Insecurity: Not on file Transportation Needs: Not on file Social Connections: Unknown (12/22/2023) Social Connections How often do you feel lonely or isolated from those around you? (Adult - for ages 18 years and over): Not on file Housing Stability: Not on file FHx: Family History Adopted: Yes Problem Relation Name Age of Onset No Known Problems Mother No Known Problems Father ROS: A comprehensive review of systems is otherwise negative unless noted above MEDS: Current Outpatient Medications Medication Sig Dispense Refill Cholecalciferol (VITAMIN D3) 3000 UNITS Tablet Take 1 Tablet by mouth in the morning. Cyanocobalamin (B-12) 1000 MCG Capsule Take 1 Capsule by mouth in the morning. metFORMIN HCl 500 MG Oral Tablet (Glucophage) Take 1 Tablet by mouth 2 times a day with morning andevening meals. Jardiance 25 MG Oral Tablet Take 1 Tablet by mouth in the morning. 1 daily. Betamethasone Dipropionate 0.05 % External Lotion (Diprosone) Apply to torso and extremities twice daily as needed for flares 60 mL 3 Hydrocortisone 2.5 % External Cream Apply to area behind the ears twice daily as needed for flares 60 g 1 Magnesium Oxide 400 (240 Mg) MG Oral Tablet (Mag-Ox) TAKE 1 TABLET BY MOUTH ONCE DAILY 90 Tablet 3 Metoprolol Succinate ER 25 MG Oral Tablet Extended Release 24 Hour (toPROL XL) Take 1 Tablet by mouth in the morning and 1 Tablet before bedtime. 180 Tablet 3 Potassium Chloride Concepción ER 10 MEQ Oral Tablet Extended Release Take 1 Tablet by mouth in the morning and 1 Tablet before bedtime. 180 Tablet 3 Rosuvastatin Calcium 5 MG Oral Tablet (Crestor) Take 1 Tablet by mouth in the morning. 90 Tablet 3 Spironolactone 25 MG Oral Tablet (Aldactone) Take 1 Tablet by mouth in the morning. 90 Tablet 3 Rivaroxaban 20 MG Oral Tablet (Xarelto) Take 1 Tablet by mouth daily with dinner. 90 Tablet 3 Digoxin 125 MCG Oral Tablet (Lanoxin) Take 1 Tablet by mouth in the morning. 90 Tablet 3 Amiodarone HCl 200 MG Oral Tablet (Cordarone) Take 1 Tablet by mouth 2 times a day with morning andevening meals. Furosemide 40 MG Oral Tablet (Lasix) Take 1 Tablet by mouth in the morning and 1 Tablet before bedtime. Take 1 tablet in the morning and 1 tablet in the afternoon.. Allopurinol 300 MG Oral Tablet (Zyloprim) Take 1.5 Tablets by mouth daily. 135 Tablet 4 Entresto 49-51 MG Oral Tablet (sacubitril-valsartan 49-51 mg per tab) Take 1 Tablet by mouth in themorning and 1 Tablet before bedtime. 180 Tablet 3 Stelara 90 MG/ML Subcutaneous Solution Prefilled Syringe (Smarp.) Inject 90 mg under the skin every 12 weeks. 1 mL 1 No current facility-administered medications for this visit. Vitals: Filed Vitals: 04/08/24 0846 BP: 110/58 Pulse: 66 SpO2: 99% Weight: 102.2 kg (225 lb 4.8 oz) Height: 1.829 m (6') PE: VITALS: BP 110/58 (BP Site: Left Arm, BP Position: Sitting, BP Cuff Size: Regular) | Pulse 66 | Ht 1.829 m (6') | Wt 102.2 kg (225 lb 4.8 oz) | SpO2 99% | BMI 30.56 kg/m | BSA 2.28 m GENERAL APPEARANCE: The patient appears to be in no apparent distress. The patient can converse in full sentences without excessive pauses. HEAD, EYES, EARS, NOSE, MOUTH, THROAT: Normocephalic atraumatic. Sclera anicteric. Conjunctiva noninjected. Patient can hear normal conversational speech without difficulty. No signs of epistaxis. Nares are patent. Oral mucosa is moist. NECK: No jugular venous distention. CHEST: There are no bony abnormalities of the chest. CARDIAC: Afib. Normal S1. Normal S2. No S3 or S4. No murmurs. No rubs. No heaves. No thrills. PULMONARY: Respiratory effort is normal. There are no crackles. There are no wheezes. ABDOMEN: Nontender. Nondistended. Normoactive bowel sounds in all 4 quadrants. EXTREMITIES: No cyanosis. No clubbing. No peripheral edema. SKIN: Warm and dry. No lesions. Nail beds without lesions. NEUROLOGIC: Deferred. PSYCHOLOGIC: Normal mood. Normal affect. LABS: CBC ANEMIA COAG CHEMISTRY Lab Results Component Value Date/Time MG 2.4 09/05/2016 03:08 PM URICACID 5.3 02/25/2024 09:59 AM URICACID 6.6 03/14/2020 09:43 AM LIVER LIPID CARDIAC Lab Results Component Value Date/Time PROBNP 364 (H) 06/09/2012 07:49 AM CK 59 09/26/2016 12:07 PM MB 1.8 09/26/2016 12:07 PM ENDOCRINE Lab Results Component Value Date/Time HGBA1C 6.3 (A) 01/14/2021 12:00 AM HGBA1C 10.5 (H) 03/10/2017 09:01 AM TSH 1.99 02/25/2024 09:59 AM TSH 1.56 03/14/2020 09:43 AM FREET4 NOT APPLICABLE 03/14/2020 09:43 AM FREET4 1.07 12/20/2008 11:42 AM BLOOD GAS STUDIES: Coronary Angiogram and RHC (04/08/24) * ? Normal coronary arteries by angiography Right Heart Catheterization Measurements (reference measures in parenthesis) ? RA [0-8 mmHg] = 1 mmHg ? RV [20-30/0-8 mmHg] = 17/1 mmHg ? PA [20-30/8-15 mmHg, mean <25 mmHg] = 22/3 (15) mmHg ? PW [8-12 mmHg] = 7 mmHg ? CO (Epi) = 5.49 L/min | CI = 2.43 L/min/m2 ? PVR = 1.45 lei units ? Right radial access for LHC ? Right antecubital vein for RHC Coronary Angiogram (Id Meigs 02/25/2007) Normal coronaries. LVEF 15% A/P: This is a 49 year old man with a pmhx of HFrEF 2/2 NICMP since at least 2006, who has been referredfor worsening heart failure. 1. HFrEF 2/2 NICMP -appears euvolemic -continue lasix 40mg BID -his main issue seems to be arrhythmia burden rather than worsening functional status and volume overload -this is evidenced by his normal RHC numbers -planning to see EP soon; given recurrent Afib may consider AVN ablation and placement of STRATEGIC PARTNERSHIP REPRESENTATIVE (which would allow for maximization of beta blockade) -may be a candidate for VT ablation; to formally see EP soon -continue Entresto at 49/51mg BID -continue Toprol 25mg BID -continue aldactone 25mg qday -continue Jardiance 25mg qday -genetic testing is negative; TSH within normal limits -Iron deficiency: referral for IV iron Follow up in 6 months I have spent 40 minutes of total time for the visit in preparation, delivery, and documentation of the care provided, excluding any time spent on the performance of any procedure or separately billable services. We discussed management of NICMP. Uriel Byrne MD Advanced Heart Failure & Mechanical Circulatory Support * Charmaine Arvizu LPN - 04/08/2024 8:52 AM EDT PRE - ADMINISTRATION DOCUMENTATION Are you experiencing any cold symptoms or fever? No Have you had Guillain-Sanford Syndrome (an illness that causes paralysis) within the last 6 weeks? No Have you had the flu shot in the past? YES Have you ever had a reaction to the flu shot? No Charmaine Arvizu LPN, 04/08/2024 8:52 AM Immunization Administration Documentation Time Out Procedure Performed: Yes Patient Identified (Ask Name/Date of ): Yes Does the patient have a fever greater than 101 degrees today? No Patient allergic to latex? No VFC Stock: No Immunization(s) verified: Yes, Immunization Name: Flu, VIS Sheet(s) given: Yes Verified Side and Site: Yes Verified Shot(s) with Parent(s)/Patient: Yes documented in this encounter Plan of Treatment Upcoming Encounters Date Type Department Care Team (Late st Contact Info) Description 04/11/2024 8:30 AM EDT Nurse Only Dermatology Lucina Dan [place] [address] [place] [address] Sp, Nurse Dermatology [address] [place] [address] 04/13/2024 8:30 AM EDT Nurse Only Dermatology [facility] [employer] [address] [place] [address] Sp, [place] [address] 04/15/2024 8:30 AM EDT Nurse Only Dermatology [place] Nicola Com[place] [address] [place] [address] Sp, Nurse Dermatology [address] [place] [address] 04/18/2024 8:30 AM EDT Nurse Only Dermatology [facility]en[facility] [address] [place] [address] Sp, Nurse Dermatology [address] [place] [address] 04/20/2024 8:30 AM EDT Nurse Only Dermatology [facility]enery [facility] [address] [place] [address] Sp, Nurse Dermatology [address] [place] [address] 04/22/2024 8:30 AM EDT Nurse Only Dermatology [facility]en[facility] [address] [place] [address] Sp, Nurse Dermatology [address] [place] [address] 04/25/2024 8:30 AM EDT Nurse Only Dermatology [facility] [address] [place] [address] Sp, Nurse Dermatology [address] [place] [address] 04/27/2024 8:30 AM EDT Nurse Only Dermatology [facility]en[facility] [address] [place] [address] Sp, Nurse Dermatology [address] [place] [address] 04/29/2024 8:30 AM EDT Nurse Only Dermatology [facility]en[facility] [address] [place] [address] Sp, Nurse Dermatology [address] [place] [address] 05/02/2024 8:30 AM EDT Nurse Only Dermatology [facility]enery [facility] [address] [place] [address] Sp, Nurse Dermatology [address] [place] [address] 05/04/2024 8:00 AM EDT Cardiac Studies [facility] [place] [address] [place] [address] [place], E[place] [address] [place] [address] 05/04/2024 8:30 AM EDT Office Visit Cardiology [facility] [address] [place] [address] Claudia Cordova IV, MD [address] [place] [address] 05/06/2024 8:30 AM EDT Nurse Only Dermatology [facility] [address] [place] [address] Sp, Nurse Dermatology 200 [facility] [place] [address] 06/23/2024 8:30 AM EST Office Visit Sleep Disorders Ctr [facility] 132 [facility] [place] [phone] Rosalinda Ashton CRNP [facility] [place] [address] 08/01/2024 8:00 AM EST Office Visit Cardiology, [facility] 132 [facility] [place] [address] Patricio Jonhson MD [address] [place] [address] 08/05/2024 10:15 AM EST Office Visit Dermatology [facility] [place] [address] [place] [address] Carl Munson MD 200 [facility] [place] [address] 10/05/2024 8:45 AM EDT Office Visit [facility] [place] [address] [place] [address] Uriel Byrne MD [address] [place] [address] 12/05/2024 8:00 AM EDT Office Visit Rheumatology [place] [address] [facility] [place] [address] Terell Ward MD [facility] [place] [address] 02/20/2025 9:00 AM EDT Cardiac Studies Cardiology [facility] [address] [place] [address] Clinic, Heart Rhythm Device [address] [place] [address] Health Maintenance Due Date Last Done Comments [...] this encounter Medical Devices Implanted Type Area Driver Merchandiser Device Identifier Shelf Expiration Date Model / Serial / Lot Cath Thermodilution 6fr - [id number] Implanted:Qty: 1 on 03/16/2024 by Veroinca Vidal MD at [facility] [place] [employer] NACHO [id number] 09/23/2025 [id number] / / [id number] documented as of this encounter Visit Diagnoses Diagnosis Need for prophylactic vaccination and inoculation against influenza- Primary documented in this encounter Advance Directives Documents on File Type Date Recorded Patient Air Breaker Operator Expl anation Advance Directives and Living [...] 10:58 AM 01/21/2008 1:40 PM Care Teams Armament Installer Relationship Specialty [place] [address] [place] [address] [place] [address] PCP - General Family Medicine 01/07/18 documented as of this encounter"
--- OUTSIDE RECORDS SUMMARY | 2024-05-10 08:10 | External Medical Summary | Summary of Care ---
Author Name Unknown Organization [facility] Address [address] [place] [address] Phone [phone] Care Team Providers Care Supervisor Grips Name Role Phone Samanta Jung MD Primary Care Provider [phone] Reason for Referral * Evaluate & Treat - Unlimited Visits (Within 10 days (routine)) - Authorized Specialty Diagnoses / Procedures Referred By Almaz t Referred To Contact Pharmacist / Pharmacy Diagnoses Iron deficiency anemia, unspecified iron deficiency anemia type Caty, Uriel Chavez MD [address] [place] [address] Referral ID Status Reason Start Date Expiration Date Visits Requested Visits Authorized [id number] Authorized Specialty Services Required 04/08/2024 10/05/2024 99 99 Question Answer Referral Priority Within 10 days (routine) Where should this appointment be scheduled? [facility] Referring Provider Role: Specialist Specialty: Cardio Reason for Referral: Anemia Comments Pharmacist Medication Therapy Management: Minimum frequency patient should be seen in person for medication management: as appropriate per clinical condition and patient status By my signature, I understand that my patient Shahid Palomino will have his medication therapy managed by the [facility] Medication Therapy [facility] ([facility]) per established policies, procedures, and protocols. I also certify that this referral may serve as an initiation of service for the management of drug therapy in the above noted patient. [facility] providers will be responsible for scheduling patient visits, obtaining appropriate laboratory studies, and adjusting medication management therapy per patient's need, in addition to those roles spelled out in the clinic policy, procedures, and drug management protocols. I understand that the service provided by the [facility] Clinic is voluntary and have informed patient that they can refuse the service at their discretion. I am aware that the [facility] will provide me with a copy of the patient encounter via my [facility]. I authorize the [facility] to carry out these activities on my behalf. I consider this program to be a necessary part of the patient's medical care. Uriel Byrne MD Encounter Details Date Type Department Care Team (Late st Contact Info) Description 04/08/2024 Telephone Cardiology [facility] [place] [address] [place], [place] [id number] Edmond Bello, [facility] [address], [place] [id number] Allergies Active Allergy Reactions Criticality Noted Date [...] Oral Tablet (sacubitril-valsarta n 49-51 mg per tab)Indications:Bruise Trimmer william systolic heart failure (HCC) Take 1 [...] encounter Miscellaneous Notes * Telephone Encounter - Edmond Bello, [facility] - 04/08/2024 9:40 AM EDT Patient is a 49 yo with HFrEF, LVEF 20%, who was to clinic with Dr. Byrne for advance HF evaluation. Labs demonstrate possible iron deficiency. Referring to [facility] Anemia team for evaluation and treatment as appropriate. Patient prefers treatment in [facility] if possible Latest Reference Range & Units 02/25/24 09:59 Iron 45 - 176 ug/dL 50 Iron Binding Capacity 250 - 425 ug/dL 380 Transferrin Saturation Percent 15 - 55 % 13 (L) Ferritin 30 - 400 ng/mL 55 Latest Reference Range & Units 03/16/24 08:56 WBC 4.00 - 10.80 K/uL 9.00 RBC 4.50 - 5.25 M/uL 4.85 HGB 14.0 - 16.8 g/dL 13.5 (L) HCT 40.0 - 48.4 % 43.1 MCV 82.0 - 99.5 fL 88.9 MCH 27.0 - 34.0 pg 27.8 MCHC 32.0 - 36.0 g/dL 31.3 RDW 11.5 - 15.5 % 15.3 PLT 140 - 400 K/uL 324 Edmond Bello [facility], PharmD Clinical Pharmacist [facility] - Cardiology 04/08/2024, 9:42 AM documented in this encounter Plan of Treatment Upcoming Encounters Date Type Department Care Team (Late st Contact Info) Description 04/11/2024 8:30 AM EDT Nurse Only Dermatology [facility] [place] [address] [place], [place] [id number] Sp, Nurse Dermatology [address] [place] [address] 04/13/2024 8:30 AM EDT [facility] [place] [address] [place], [place] [address] Sp, Nurse Dermatology [address] [place], [place] [address] 04/15/2024 8:30 AM EDT Nurse [facility] [place] [address] [place] [address] Sp, Nurse Dermatology [address] [place] [address] 04/18/2024 8:30 AM EDT Nurse Only Dermatology [facility] [place] [address] [place] [address] Sp, Nurse Dermatology [address] [place] [address] 04/20/2024 8:30 AM EDT Nurse Only Dermatology [facility] [place] [address] [place] [address] Sp, Nurse Dermatology [address] [place] [address] 04/22/2024 8:30 AM EDT Nurse Only Dermatology [facility] [place] [address] [place] [address] Sp, Nurse Dermatology [address] [place] [address] 04/25/2024 8:30 AM EDT Nurse Only [facility] [place] [address] [place], [place] [address] Sp, Nurse Dermatology [address] [place] [address] 04/27/2024 8:30 AM EDT Nurse Only [facility]ology [facility] [place] [address] [place], [place] [address] Sp, Nurse Dermatology [address] [place] [address] 04/29/2024 8:30 AM EDT Nurse Only Dermatology [facility] [place] [address] [place], [place] [address] Sp, Nurse Dermatology [address] [place] [address] 05/02/2024 8:30 AM EDT Nurse Only Dermatology [facility] [place] [address] [place], [place] [address] Sp, Nurse Dermatology [address] [place], [place] [address] 05/04/2024 8:00 AM EDT Cardiac Studies [facility] [place] [address] [place] [address] [place] [address], [place] [address] 05/04/2024 8:30 AM EDT Office Visit Cardiology [facility] [place] [address], [place] [phone] Claudia Cordova IV, MD [address], [place] [phone] 05/06/2024 8:30 AM EDT Nurse Only Dermatology [facility] [place] [address] [place], [place] [address] Sp, Nurse Dermatology [address] [place] [address] 06/23/2024 8:30 AM EST Office Visit Sleep Disorders [facility] [address] [place] [id number] Rosalinda Ashton CRNP [address] [place] [address] 08/01/2024 8:00 AM EST Office Visit Cardiology, [facility] [address] [place] [address] Patricio Johnson MD [address] [place] [address] 08/05/2024 10:15 AM EST Office Visit Dermatology [facility] [address] [place] [address] Carl Munson MD [address] [facility] [place] [address] 10/05/2024 8:45 AM EDT Office Visit Cardiology [address] [address] Uriel Byrne MD [facility] [place] [address] 12/05/2024 8:00 AM EDT Office Visit Rheumatology [address] [place], [place] [address] Terell Ward MD [address] [place] [address] [place] [address] 02/20/2025 9:00 AM EDT Cardiac Studies Cardiology [address] [address] Clinic, Heart Rhythm Device [facility] [place] [address] Scheduled Referrals Name Type Priority Associated Diagnoses [...] this encounter Medical Devices Implanted Type Area Assessment Manager Device Identifier Shelf Expiration Date Model / Serial / Lot Cath Thermodilution 6fr - [id number] Implanted:Qty: 1 on 03/16/2024 by Veronica Vidal MD at [facility] [employer] [id number] 09/23/2025 [id number] / / [id number] documented as of this encounter Visit Diagnoses Diagnosis Iron deficiency anemia, unspecified iron deficiency anemia type- Primary documented in this encounter Advance Directives Documents on File Type Date Recorded Patient Head Of Design Expl anation Advance Directives and Living Will [...] 10:58 AM 01/21/2008 1:40 PM Care Teams Supervisor Grips Relationship Specialty Start Date End Date Samanta Jung [facility] [address] [facility] [place] [address] PCP - General Family Medicine 01/07/18 documented as of this encounter
[2024-05-10 08:31] VITALS: BP 149/105; RESP 38
--- NOTE | 2024-05-10 08:47 | Critical Care Consultation ---
Date of Consultation May 10, 2024 Assessment & Plan (1) Cardiogenic shock: (2) Acute on chronic heart failure with reduced ejection fraction and diastolic dysfunction: (3) Anemia: (4) Ventricular tachycardia: (5) Controlled type 2 diabetes mellitus: (6) Atrial fibrillation: (7) Obesity (BMI 30.0-34.9): Plan Reason Critically Ill: 49-year-old male present to the hospital with complaints of shortness of breath and V. tach with defibrillation x 2. Patient transferred to ICU for respiratory distress on the floor, transferred to the ICU for intubation Past medical history: Nonischemic cardiomyopathy with single lead ICD, dyslipidemia, A-fib on Xarelto, diabetes type 2, hyperparathyroidism, psoriatic arthritis on Stelara, V. tach Neuro - [facility] ICU: Unable to assess Cardiac - -- Systolic CHF with recurrent V. tach On amiodarone and digoxin at home Hold metoprolol Continue with rosuvastatin and allopurinol TSH within normal limit --Elevated troponin Likely type II KS Respiratory - -- Acute hypoxic respiratory failure Likely secondary to systolic CHF BNP 1306 Intubated 05/10/2024 GI - -- No acute issues RENAL/LYTES - -- Monitor BUN/creatinine Avoid nephrotoxic medication - -- Continue with Georges catheter ENDO - -- Diabetes type 2 On metformin and Jardiance at home ICU hypoglycemia protocol HEME - -- Normocytic anemia Patient's baseline hemoglobin seems to be around 14-15 He came to the hospital with hemoglobin of 8.5 Monitor H&H ID - -- No clear source of infection Musculoskeletal - --Psoriatic arthritis On Stelara --Prophylaxis VTE: Xarelto GI: Pantoprazole Lines: Peripheral Diet: N.p.o. Plan: Strict in and out Try to keep the patient negative balance V. tach, try to keep magnesium greater than 2, phosphorus greater than 3 and potassium greater than 4 Given the drop in hemoglobin from his baseline, hold Xarelto for the time being. Hyperventilate the patient and get ABG in 15 minutes Case was discussed with cardiology I have personally spent 64 minutes of critical care time in the direct management of this patient. This is a life/limb threatening event. This includes time spent evaluating patient, direct bedside care, chart review, placing orders, interpretation of diagnostic studies, discussion with consultants, patient, and family members, as well as other required patient management activities. This time is exclusive of all separately billable procedures, and teaching time and separate from and in addition to any other critical care service time. History of Present Illness Attending Physician: Bijan Luis MD History of Present Illness 49-year-old male present to the hospital with complaints of shortness of breath and V. tach with defibrillation x 2 Past medical history: Nonischemic cardiomyopathy with single lead ICD, dyslipidemia, A-fib on Xarelto, diabetes type 2, hyperparathyroidism, psoriatic arthritis on Stelara, V. tach Patient transferred to ICU for respiratory distress on the floor, transferred to the ICU for intubation At the time of examination patient was in severe respiratory distress He was breathing in the high 30s, diaphoretic. Using accessory muscles Plan to transfer him to the ICU History was obtained from cardiology. In the ICU when he was transferred his systolic blood pressure was in the 140s, as he was still breathing in the 30s He was on BiPAP with FiO2 100% saturation around 92-93% Given the mental status fortunately was not able to answer any questions. Allergies Allergy/AdvReac Type Severity Reaction Status Date / Time Penicillins Allergy Unknown Unknown Verified 05/09/24 19:50 Home Medications Medication Instructions Recorded Confirmed Type digoxin 125 mcg (0.125 mg) tablet 125 mcg PO QAM 07/22/18 05/09/24 History furosemide 40 mg tablet 40 mg PO BID 07/22/18 05/09/24 History rivaroxaban 20 mg tablet 20 mg PO HS 07/22/18 05/09/24 History spironolactone 25 mg tablet 25 mg PO QAM 07/22/18 05/09/24 History allopurinol 300 mg tablet 300 mg PO QAM 10/28/21 05/09/24 History cyanocobalamin (vitamin B-12) 1,000 mcg PO QAM 10/28/21 05/09/24 History 1,000 mcg tablet (Vitamin B-12) ustekinumab 90 mg/mL subcutaneous 90 mg subcut UD 10/28/21 05/09/24 History syringe (Stelara) cholecalciferol (vitamin D3) 25 5,000 unit PO QAM 02/07/22 05/09/24 History mcg (1,000 unit) tablet (Vitamin D3) potassium chloride 10 mEq 10 meq PO BID 04/21/22 05/09/24 History tablet,extended release(part/cryst) amiodarone 200 mg tablet 200 mg PO BID #1 tab 11/11/23 05/09/24 Rx metoprolol succinate 25 mg 25 mg PO BID #180 tabs 12/03/23 05/09/24 Rx tablet,extended release 24 hr empagliflozin 25 mg tablet 25 mg PO QAM 12/06/23 05/09/24 History (Jardiance) magnesium oxide 400 mg PO QAM 12/06/23 05/09/24 History rosuvastatin 10 mg tablet 10 mg PO HS 12/06/23 05/09/24 History blood-glucose meter (OneTouch #1 ea 12/16/23 Rx Verio Flex Start kit) lancets 33 gauge #100 ea 12/22/23 Rx blood sugar diagnostic (OneTouch #100 ea 04/11/24 Rx Verio test strips) metformin 500 mg tablet 1,000 mg (2 x 500 mg) PO BID 90 04/12/24 05/09/24 Rx days #360 tabs sacubitril 49 mg-valsartan 51 mg 1 tab PO BID 05/09/24 05/09/24 History tablet (Entresto) Patient History Medical History Ventricular tachycardia, paroxysmal Surgical History S/P knee surgery Family History Other No significant family history Denies family history of Ovarian cancer Prostate cancer Myocardial infarction Breast cancer Colorectal cancer Social History Smoking Status: Never smoker Second Hand Exposure: No; Do You Dip or Chew Tobacco: No; Hx Alcohol Use: Yes Alcohol type: beer Hx Substance Use: No Preferred Language: Tanzanian Communication Ability: Effective Airplane Captain Required: No Beliefs That Will Affect Care: None marital status: Single Current Living Situation: Family Current Living Situation Comment: patient lives with parents current occupational status: disabled How many Children do You have: 0 Other Information That Helps Us Care for You: No Feels Safe at Home: Yes Safety Concerns: Feels Safe At This Time Childhood Exposure to Second-Hand Smoke: No Diet: regular caffeine: Yes Dental Care, Regularly: Yes Physical Activity Frequency: Daily Seatbelt Use: always Sunscreen Use: No Assistive Devices: Glasses Review of Systems 2 Review of Systems: All systems reviewed & are unremarkable except as noted in HPI & below and Unobtainable due to mental health condition Physical Exam 2 Physical Exam: Constitutional: No respiratory distress, diaphoretic HEENT: EOMI, PERRLA Respiratory system: Decreased air entry bilaterally, no wheeze, no rhonchi, positive crackles bilaterally CVS: S1-S2 positive, no murmurs or gallops, left-sided AICD Abdomen: Soft, nontender, nondistended, positive bowel sounds x4 Extremities: +2 pulses bilaterally radialis/ dorsalis pedis, no cyanosis, p itting edema bilateral lower extremities Neuro: Awake and alert Psych: Restless mood G/U: Positive Georges Skin: no rashes, warm and dry Lymphatic: no cervical or axillary lymphadenopathy Results & Data Results & Data Vital Signs (Past 12 Hours) Vital Signs Temp Pulse Pulse Resp BP BP BP 05/10/24 08:30 126 H 38 H 149/105 H 05/10/24 08:19 129 H 42 H 150/92 H 05/10/24 08:10 39 H 157/101 H 05/10/24 08:04 128 H 35 H 198/147 H 05/10/24 07:50 131 H 40 H 155/95 H 05/10/24 07:04 36.7 C 77 18 109/69 05/10/24 04:56 36.5 C 77 16 97/62 L 05/09/24 23:28 82 05/09/24 23:11 36.6 C 78 18 105/71 05/09/24 22:29 74 17 111/68 05/09/24 21:15 72 20 85/54 L 05/09/24 21:00 74 19 85/54 L 05/09/24 20:51 76 19 Pulse Ox O2 Del Method O2 Flow Rate 05/10/24 08:30 100 BiPAP 05/10/24 08:19 100 BiPAP 05/10/24 08:10 100 BiPAP 05/10/24 08:04 100 BiPAP 05/10/24 07:50 85 L Nasal Cannula 3 05/10/24 07:04 91 Room Air 05/10/24 04:56 93 Room Air 05/09/24 23:28 05/09/24 23:11 97 Room Air 05/09/24 22:29 98 Room Air 05/09/24 21:15 97 05/09/24 21:00 98 Room Air 05/09/24 20:51 95 Laboratory Results 05/10/24 06:41 05/10/24 06:41 Coding Level of Care Code 26040 CRITICAL CARE 1ST 30-74M Diagnoses Cardiogenic shock R57.0 Acute on chronic heart failure with reduced ejection fraction and diastolic dysfunction I50.43 Anemia D64.9 Anemia type: unspecified type Ventricular tachycardia I47.20 Controlled type 2 diabetes mellitus E11.9 Permanent atrial fibrillation I48.21 Atrial fibrillation type: permanent Obesity (BMI 30.0-34.9) E66.9 (3) Anemia Anemia type: unspecified type Qualified Code(s): D64.9 - Anemia, unspecified (6) Atrial fibrillation Atrial fibrillation type: permanent Qualified Code(s): I48.21 - Permanent atrial fibrillation
[2024-05-10] MEDS: RAPID SEQUENCE INDUCTION BAG ONE (08:59)
[2024-05-10] MEDS ORDERED: STAT IV Infusion **Titration per Protocol STA ×3 (09:00→13:02)
[2024-05-10] MEDS ORDERED: VALSARTAN/SACUBITRIL 51/49 MG TAB PO SCH (09:00)
[2024-05-10] MEDS ORDERED: PROPOFOL BOLUS FROM BAG IV PRN (09:00)
[2024-05-10] MEDS ORDERED: SPIRONOLACTONE 25 MG TAB PO SCH (09:00)
[2024-05-10] MEDS ORDERED: METOPROLOL SUCC 25MG EXT REL TAB PO SCH (09:00)
[2024-05-10] MEDS ORDERED: fentaNYL BOLUS from BAG IV PRN (09:02)
[2024-05-10 09:20] LABS: Magnesium 2.7 mg/dl (1.7-2.4)
--- NOTE | 2024-05-10 09:41 | XRay Report ---
XR chest 1V portable HISTORY: 49 years-old Male intubation acute respiratory failure COMPARISON: 05/09/2024 TECHNIQUE: AP view of the chest FINDINGS: Endotracheal tube overlies the midline, 7.6 cm superior to the ping. Cardiomegaly with left subclav gabi pacer/AICD redemonstrated. No pneumothorax. Small pleural effusions with progressive bibasilar co nsolidation. Pulmonary vascular congestion with bilateral mixed interstitial and alveolar opacities w hich are new/progressed. Bones appear intact. IMPRESSION: 1. Endotracheal tube overlies the midline, 7.6 cm superior to the ping. 2. Cardiomegaly with progressive mixed interstitial and alveolar opacities suggestive of pulmonary ed mackenzie versus multifocal pneumonia. 3. Small pleural effusions. 4. No pneumothorax. ACT 112: Negative or not required by law. The above report was generated using voice recognition software. It may contain grammatical, syntax o r spelling errors. Electronically signed by: Lew Oliveira M.D. 05/10/2024 9:40 AM
[2024-05-10 10:00] LABS: iSTAT Allen Test Pass; iSTAT Art Bld Gas pCO2 Correct 76 mmHg (35-46); iSTAT Art Bld Gas pH Corrected 7.086 (7.35-7.45); iSTAT Arterial Blood Gas HCO3 23 meg/L (19-24); iSTAT Arterial Blood Gas pCO2 76 mmHg (35-46); iSTAT Arterial Blood Gas pH 7.09 (7.35-7.45); iSTAT Arterial Blood Gas pO2 77 mmHg (80-95); iSTAT Arterial Blood Gas pO2 C 77; iSTAT Carbon Dioxide 25 mmol/L (24-31); iSTAT FiO2 100 %; iSTAT Hematocrit 37 % (42-52); iSTAT Hemoglobin 12.6 g/dl (14.0-18.0); iSTAT Potassium 4.5 mmol/L (3.3-5.0); iSTAT Sample Type Arterial; iSTAT Site L Radial; iSTAT Sodium 137 mmol/L (135-144); iSTAT SpO2 90
[2024-05-10] MEDS: SODIUM BICARB 8.4% INJ 50 MEQ/50 ML SYR IV ONE (10:47)
[2024-05-10] MEDS: fentaNYL citrate 2,500 MCG/250 ML BAG IV ONE (10:48)
[2024-05-10] MEDS: PROPOFOL IV EMULSION 10 MG/ML 100 ML VIAL IV ONE (10:49)
[2024-05-10] MEDS: propofoL 1,000 MG/100 ML VIAL IV SCH (10:49)
[2024-05-10] MEDS: fentaNYL citrate 2,500 MCG/250 ML BAG IV SCH (10:50)
[2024-05-10] MEDS: NOREPINEPHRINE/D5W 4 MG/250 ML PLCT IV SCH (10:50)
[2024-05-10 11:29] LABS: iSTAT Allen Test Pass; iSTAT Art Bld Gas pCO2 Correct 54 mmHg (35-46); iSTAT Art Bld Gas pH Corrected 7.295 (7.35-7.45); iSTAT Arterial Blood Gas HCO3 26 meg/L (19-24); iSTAT Arterial Blood Gas pCO2 54 mmHg (35-46); iSTAT Arterial Blood Gas pO2 70 mmHg (80-95); iSTAT Arterial Blood Gas pO2 C 70; iSTAT Carbon Dioxide 28 mmol/L (24-31); iSTAT FiO2 100 %; iSTAT Hematocrit 35 % (42-52); iSTAT Hemoglobin 11.9 g/dl (14.0-18.0); iSTAT Potassium 4.4 mmol/L (3.3-5.0); iSTAT Sample Type Arterial; iSTAT Site L Radial; iSTAT Sodium 140 mmol/L (135-144); iSTAT SpO2 89
--- NOTE | 2024-05-10 12:56 | Cardiology Consultation ---
Date of Consultation May 10, 2024 Assessment & Plan (1) Acute on chronic heart failure with reduced ejection fraction and diastolic dysfunction: (2) Cardiogenic shock: (3) Ventricular tachycardia: (4) Dilated cardiomyopathy: (5) ICD (implantable cardioverter-defibrillator) discharge: Plan 49-year-old male with severe nonischemic cardiomyopathy presenting with syncope, ventricular tachycardia, and ICD discharge. Acute decompensation of heart failure this a.m. requiring intubation. Low urine output with initial dose of furosemide. 80 mg of IV furosemide administered. Recommend additional IV furosemide with continuous infusion pending ongoing assessment of urine output and respiratory status/oxygenation. Continue IV amiodarone. Case discussed with heart failure team at [facility]. Initially recommending hydralazine or nipride, however, follow-up systolic blood pressure below 100 mmHg. Initiate pressors/inotropes as needed. Patient accepted for transfer to [facility] to consider advanced therapies, such as ECMO and/or Impella device placement. I spent a total of 90 minutes on the date of service in preparation, delivery, and documentation of the care provided to this patient, excluding any time spent in the performance of separately billed services. History of Present Illness Reason for Consultation: s/p defibrillator firing Requesting Physician: Dr. Juanito Morales Attending Physician: Bijan Luis MD History of Present Illness 49-year-old male with history of nonischemic cardiomyopathy severe LV systolic dysfunction, single-chamber ICD placement presented to the emergency department secondary to syncope. Device interrogation reveals ventricular tachycardia with 2 defibrillation shocks. The second shock successfully converted patient from ventricular tachycardia to sinus rhythm. He was admitted to the progressive care unit. At approximately 7:30 AM, patient developed acute respiratory distress. A code purple was called and he was placed on BiPAP. IV Lasix administered. I evaluated the patient while on BiPAP. Unable to offer history due to respiratory distress. Patient intubated, placed on ventilator, and transferred to the intensive care unit. Received total of 80 mg of IV furosemide with minimal urine output. Continues to require high FiO2 and PEEP to maintain oxygen saturation. Initially hypertensive on arrival to the ICU. Allergies Allergy/AdvReac Type Severity Reaction Status Date / Time Penicillins Allergy Unknown Unknown Verified 05/09/24 19:50 Home Medications Medication Instructions Recorded Confirmed Type digoxin 125 mcg (0.125 mg) tablet 125 mcg PO QAM 07/22/18 05/09/24 History blood-glucose meter (OneTouch #1 ea 12/16/23 Rx Verio Flex Start kit) lancets 33 gauge #100 ea 12/22/23 Rx blood sugar diagnostic (OneTouch #100 ea 04/11/24 Rx Verio test strips) Patient History Medical History Ventricular tachycardia, paroxysmal Surgical History S/P knee surgery Family History Other No significant family history Denies family history of Ovarian cancer Prostate cancer Myocardial infarction Breast cancer Colorectal cancer Social History Smoking Status: Never smoker Second Hand Exposure: No; Do You Dip or Chew Tobacco: No; Hx Alcohol Use: Yes Alcohol type: beer Hx Substance Use: No Preferred Language: Burkinan Communication Ability: Effective Kitchen Porter Required: No Beliefs That Will Affect Care: None marital status: Single Current Living Situation: Family Current Living Situation Comment: patient lives with parents current occupational status: disabled How many Children do You have: 0 Feels Safe at Home: Yes Childhood Exposure to Second-Hand Smoke: No Diet: regular caffeine: Yes Dental Care, Regularly: Yes Physical Activity Frequency: Daily Seatbelt Use: always Sunscreen Use: No Assistive Devices: Glasses Review of Systems Review of Systems: Unobtainable due to endotracheal tube and Other (sedation) Physical Exam Constitutional: well nourished and + ill appearing Respiratory: Auscultation: + rales and + rhonchi; no wheezes Cardiovascular: Rate/Rhythm: regular rate, regular rhythm and + tachycardic Heart Sounds: normal S1 and normal S2; no murmur Vessels: + JVD Extremities: no edema Gastrointestinal (Abdomen): Inspection/Auscultation: abdomen not distended Percussion/Palpation: abdomen soft; abdomen nontender, no guarding and abdomen not rigid Results & Data Vital Signs (Past 12 Hours) Vital Signs Temp Pulse Pulse Resp BP BP Pulse Ox 05/10/24 08:30 126 H 38 H 149/105 H 100 05/10/24 08:19 129 H 42 H 150/92 H 100 05/10/24 08:10 39 H 157/101 H 100 05/10/24 08:04 128 H 35 H 198/147 H 100 05/10/24 07:52 125 H 45 H 100 05/10/24 07:50 131 H 40 H 155/95 H 85 L 05/10/24 07:04 36.7 C 77 18 109/69 91 05/10/24 04:56 36.5 C 77 16 97/62 L 93 O2 Del Method O2 Flow Rate FiO2 05/10/24 08:30 BiPAP 05/10/24 08:19 BiPAP 05/10/24 08:10 BiPAP 05/10/24 08:04 BiPAP 05/10/24 07:52 100 05/10/24 07:50 Nasal Cannula 3 05/10/24 07:04 Room Air 05/10/24 04:56 Room Air Laboratory Results Cardiac Enzymes 05/09/24 05/09/24 05/10/24 Range/Units 19:10 21:16 06:41 AST 14 18 (13-39) U/L Troponin I High Sens 27.6 H 234.7 H* D (0-20) pg/ml B-Natriuretic Peptide 1303 H (0-100) pg/ml 05/10/24 Range/Units 11:05 AST (13-39) U/L Troponin I High Sens 351.4 H* D (0-20) pg/ml B-Natriuretic Peptide (0-100) pg/ml Coagulation 05/09/24 05/10/24 Range/Units 19:10 06:41 PT 14.3 H (9.0-12.0) Seconds APTT 33 H (21-31) Seconds B-Natriuretic Peptide 1303 H (0-100) pg/ml CBC 05/09/24 05/10/24 05/10/24 Range/Units 19:10 06:41 11:05 WBC 9.89 9.54 (4.8-10.8) K/ul RBC 3.43 L 3.45 L (4.70-6.10) M/uL Hgb 8.7 L 8.5 L 10.5 L (14.0-18.0) g/dl Hct 27.1 L 27.5 L (42.0-52.0) % Plt Count 377 342 (130-400) K/uL Neut # (Auto) 6.95 H 7.23 H (1.40-6.50) K/uL Lymph # (Auto) 1.89 1.47 (1.20-3.40) K/uL [place] # (Auto) 0.82 H 0.70 H (0.11-0.59) K/uL Eos # (Auto) 0.14 0.08 (0.00-0.50) K/uL Baso # (Auto) 0.05 0.03 (0.00-0.20) K/uL Comprehensive Metabolic Panel 05/09/24 05/10/24 Range/Units 19:10 06:41 Sodium 140 139 (136-145) mmol/L Potassium 3.4 L 4.3 D (3.5-5.1) mmol/L Chloride 105 107 (98-107) mmol/L Carbon Dioxide 27 26 (21-32) mmol/L BUN 23 22 (6-23) mg/dl Creatinine 1.03 0.88 (0.6-1.4) mg/dl Glucose 124 H 107 H (70-99(Fasting)) mg/dl Calcium 9.1 9.0 (8.6-10.3) mg/dl AST 14 18 (13-39) U/L ALT 14 14 (7-52) U/L Alkaline Phosphatase 76 69 (34-104) U/L Total Protein 6.9 6.4 (6.0-8.3) gm/dl Albumin 4.1 4.0 (3.4-5.0) gm/dl Intake and Output 05/09/24 05/10/24 05/10/24 22:59 06:59 14:59 Intake Total 100 / 700 600 / 700 Output Total 500 / 500 Balance 100 / 700 600 / 700 -500 / -500 Intake: IV 100 / 400 300 / 400 Amiodarone / D5w 150 mg In 100 100 / 100 ml @ 600 mls/hr IV NOW STA Rx#: [id number] Amiodarone / D5w 360 mg In 200 200 / 200 ml @ 1 MG/MIN 33.333 mls/hr IV ONE ONE Rx#:[id number] Potassium Chloride / Wtr 10 meq 100 / 100 In 100 ml @ 100 mls/hr IV ONE ONE Rx#:[id number] Oral 300 / 300 Output: Urine 500 / 500 Other: Weight 105.8 kg 104.2 kg 104.2 kg Weight Measurement Method Built in Bedscale Standing Scale Patient Weight 05/11/24 06:59 Weight 104.2 kg Diagnostic Findings Initial ABG 7.09/76/77/23/90% ABG on ventilator 7.30/54/70/26/91% Lactate 2.4 HS Trop 83 - 991 - 503 CXR: Pulmonary edema versus multifocal pneumonia.
--- NOTE | 2024-05-10 12:58 | Procedure Note ---
Procedure Note Date of Service May 10, 2024 INTUBATION PROCEDURE NOTE: Attending: Dr Carmen Liu MD Patient was evaluated and plan to intubate was made for respiratory failure. Sedative agent used: Lidocaine 100 mg, etomidate 20 mg Paralysis agent used: Rocuronium 60 mg Emergent consent was implied given patients rapidly declining clinical status and need for airway protection. The patient was prepared in the appropriate fashion. The patient was easily pre-oxygenated by using [id number] ventilation. With help of CMAC grade 3 vocal cords were visualized and 8 Chinese ETT was introduced on first attempt to 25 cm at the lip. The stylette was removed and balloon was inflated with 10mL of air. Appropriate Colorimetric change was appreciated for at least 10 breaths. Bilateral chest rise and breath sounds were appreciated without air sounds in the epigastrium. Patient tolerated the procedure well and there were no immediate complications. Chest Xray to follow for confirming placement. [facility] Procedure Codes (Charges) Resuscitation Resuscitation: 51237 Endotracheal Intubation, emergency Coding CPT Codes Resuscitation - Resuscitation: 73513 Endotracheal Intubation, emergency ([id number]) Additional Codes Date of Service (PG.SURGERY)
--- NOTE | 2024-05-10 12:59 | Procedure Note ---
Procedure Note Date of Service May 10, 2024 Procedure: Arterial Line Placement Attending: Dr. Liu APC: Korey Haywood PA-C Indication: Hemodynamic monitoring Anesthesia: Lidocaine 1% Emergent Consent implied in the setting of clinical deterioration and need for close hemodynamic monitoring, ABG monitoring, frequent lab draws, etc. A time-out was completed verifying correct patient, procedure, site, positioning, and implant(s) or special equipment if applicable. Vasile's test was performed to ensure adequate perfusion. Patient's LEFT wrist was prepped and draped in the usual sterile fashion. Ultrasound guidance was used to aid needle placement. A 20g Arrow arterial line was introduced into the LEFT radial artery. Catheter was threaded, and the needle was removed with appropriate blood return. Good waveform was observed. The patient tolerated the procedure well. Images saved to medical record. Blood Loss: Minimal Complications: None Procedural Ultrasound Guidance: Procedure Date: 05/10/2024 Indication: Hemodynamic Monitoring, Frequent ABGs/Lab draws. Attending: Dr. Liu APC: Korey Haywood PA-C Artery Identified: YES Line confirmed in Artery with ultrasound: YES Complications: NONE Patient tolerated procedure: [facility] [place] Procedure Codes (Charges) Tubes, Drains, and Vasc Access Procedure 1: Tubes, Drains, and Vasc Access: [id number] Arterial Cath/Cannulation Sampling/Monitoring/Transfusion Coding CPT Codes Tubes, Drains, and Vasc Access - Tubes, Drains, and Vasc Access: [id number] Arterial Cath/Cannulation Sampling/Monitoring/Transfusion ([id number]) Additional Codes Date of Service (PG.SURGERY)
--- NOTE | 2024-05-10 13:02 | Procedure Note ---
Procedure Note Date of Service May 10, 2024 Procedure: Inserting ultrasound-guided 6 Nepalese Cordis Guest Services Officer: Dr. Carmen Liu Indication: Cardiogenic shock Consent: Verbal consent was obtained from patient's parents who are at bedside Anesthesia: 1% lidocaine without epinephrine local. Procedure: Consent was verified and timeout performed. Appropriate imaging studies were reviewed prior to the procedure. Under aseptic and sterile condition, right IJ vein was accessed under direct ultrasound guidance. Guidewire was confirmed to be within the lumen of vein with the help of ultrasound. Catheter was introduced via Seldinger technique. Guide a wire was removed. Good non-pulsatile blood flow was appreciated from all the ports. The catheter was sutured in place. BioPatch was applied to the catheter and a sterile Tegaderm dressing was applied over the catheter with careful attention to sterility. Lung sliding was appreciated post procedure with the help ultrasound. Chest x-ray to follow Patient tolerated the procedure well. Blood loss: Less than 2 cc Complications: None [facility] [place] Codes (Charges) Tubes, Drains, and Vasc Access Procedure 1: Tubes, Drains, and Vasc Access: [id number] Place catheter in vein superior or inferior vena cava Procedure 2: Tubes, Drains, and Vasc Access: [id number] Ultrasound Guidance For Vascular Coding CPT Codes Tubes, Drains, and Vasc Access - Tubes, Drains, and Vasc Access: [id number] Place catheter in vein superior or inferior vena cava ([id number]) Tubes, Drains, and Vasc Access - Tubes, Drains, and Vasc Access: [id number] Ultrasound Guidance For Vascular ([id number]) Additional Codes Date of Service (PG.SURGERY)
--- NOTE | 2024-05-10 13:04 | XRay Report ---
XR chest 1V portable CLINICAL HISTORY: Confirm placement of OG tube COMPARISON STUDY: Chest radiograph May 10, 2024 at 8:55 AM. FINDINGS: Tip of endotracheal tube is 6.8 cm above the ping. Tip of orogastric tube is below the lo wer aspect of this image but at least within the body of the stomach. There is no pneumothorax follow ing placement of a right internal jugular central line. There are small bilateral pleural effusions. Bibasilar airspace opacities persist. Interstitial thickening is again noted. There is moderate cardi omegaly. Left subclavian pacer/AICD is in place. IMPRESSION: 1. Tip of endotracheal tube 6.8 cm above the ping. 2. Tip of orogastric tube below the lower aspect of this image but at least within the proximal body of the stomach. 3. Cardiomegaly with persistent pulmonary edema. 4. No significant change in bibasilar opacities. ACT 112: Negative or not required by law. Electronically signed by: Wilfred Coleman M.D. 05/10/2024 1:03 PM
[2024-05-10] MEDS ORDERED: ICU Protocol for HYPERglycemia SCH (13:15)
--- NOTE | 2024-05-10 13:18 | Communication Note ---
Date of Service: May 10, 2024 Critical care addendum: Patient's initial ABG showed a pH of 7.1 with pCO2 77 and pO2 77 on 100% FiO2, tidal volume 400 and respiratory rate 24. Tidal volume was increased to 480, respirate was increased to 26. Repeat ABG showed pH of 7.31. Patient is requirement for vasopressors is gradually increasing. Part of it is because of sedation. But the patient if not sedated because double triggering. I will give the patient 100 mg of hydrocortisone. Will add vasopressin and gradually add an inotrope if need be. I would like the patient to stop double triggering as we are limited to sedation because of hypotension I will give him rocuronium 60 mg. Patient's initial lactate was 2.5, it has improved to 2 Patient has been accepted at [facility], Dr. Pryor from cardiology was able to get in touch with advanced heart failure at [facility]. Hopefully patient will get [facility]O. Right-sided Cordis was placed in the IJ for Richey-Josee monitoring if need be Patient's parents were at bedside were updated regarding critical condition of the patient. All questions and queries of the patient were answered in depth I have personally spent additional 42 minutes of critical care time in the direct management of this patient. This is a life/limb threatening event. This includes time spent evaluating patient, direct bedside care, chart review, placing orders, interpretation of diagnostic studies, discussion with consultants, patient, and family members, as well as other required patient management activities. This time is exclusive of all separately billable procedures, and teaching time and separate from and in addition to any other critical care service time. Please note the above document was generated using voice recognition software. It may contain grammatical, syntax or spelling errors. Coding Level of Care Code 47234 CRITICAL CARE EA ADD 30M
[2024-05-10] MEDS: DOBUTamine / D5W 1,000 MG/250 ML BAG IV SCH (13:19)
[2024-05-10 13:21] LABS: iSTAT Allen Test Pass; iSTAT Art Bld Gas pCO2 Correct 47 mmHg (35-46); iSTAT Art Bld Gas pH Corrected 7.307 (7.35-7.45); iSTAT Arterial Blood Gas HCO3 23 meg/L (19-24); iSTAT Arterial Blood Gas pCO2 47 mmHg (35-46); iSTAT Arterial Blood Gas pH 7.31 (7.35-7.45); iSTAT Arterial Blood Gas pO2 87 mmHg (80-95); iSTAT Arterial Blood Gas pO2 C 87; iSTAT Carbon Dioxide 25 mmol/L (24-31); iSTAT FiO2 100 %; iSTAT Hematocrit 35 % (42-52); iSTAT Hemoglobin 11.9 g/dl (14.0-18.0); iSTAT Potassium 4.8 mmol/L (3.3-5.0); iSTAT Sample Type Arterial; iSTAT Site L Radial; iSTAT Sodium 140 mmol/L (135-144); iSTAT SpO2 98
[2024-05-10] MEDS: ROCURONIUM BROMIDE 10 MG/ML 5 ML VIAL IV STA (13:23)
[2024-05-10] MEDS: VASOPRESSIN 20 UNITS in SODIUM CHLORIDE 0.9% 100 ML IV SCH (13:24)
[2024-05-10] MEDS: NOREPINEPHRINE/D5W 4 MG/250 ML IV ONE (13:34)
[2024-05-10] MEDS: HYDROCORTISONE SOD 100 MG in SYRINGE 0 ML IV STA (14:16)
[2024-05-10] MEDS: ICU Protocol for HYPERglycemia SCH (14:16)
--- NOTE | 2024-05-10 14:21 | Electrocardiogram Report ---
Test Reason : Blood Pressure : */* mmHG Vent. Rate : 75 BPM Atrial Rate : 75 BPM P-R Int : 244 ms QRS Dur : 124 ms QT Int : 416 ms P-R-T Axes : 39 -18 66 degrees QTcB Int : 464 ms Sinus rhythm with 1st degree A-V block Non-specific intra-ventricular conduction delay Nonspecific ST and T wave abnormality Abnormal ECG When compared with ECG of 05-Apr-2024 15:16, Sinus rhythm has replaced Atrial fibrillation Non-specific change in ST segment in Anterior leads Confirmed by Logan Uribe ([id number]) on 05/10/2024 2:21:37 PM Referred By: REFERRED SELF Confirmed By: Logan Uribe
[2024-05-10] MEDS ORDERED: LIDOCAINE 2% 20 MG/ML 5 ML SYR IV ONE (14:44)
[2024-05-10] MEDS ORDERED: ETOMIDATE 2 MG/ML 20 ML VIAL IV ONE (14:44)
[2024-05-10] MEDS: allopurinoL 300 MG TAB PO SCH (14:44)
[2024-05-10] MEDS: CHOLECALCIFEROL 125 MCG (5,000 UNITS) TAB PO SCH (14:44)
[2024-05-10] MEDS ORDERED: ROCURONIUM BROMIDE 10 MG/ML 5 ML VIAL IV ONE (14:44)
[2024-05-10] MEDS: MAGNESIUM OXIDE 400 MG TAB PO SCH (14:45)
[2024-05-10] MEDS: POTASSIUM CHLORIDE 10 MEQ TABCR PO SCH (14:45)
[2024-05-10] MEDS: CYANOCOBALAMIN (B-12) 500 MCG TABLET PO SCH (14:45)
[2024-05-10 15:36] VITALS: PULSE 126
[2024-05-10] MEDS ORDERED: DIGOXIN 125 MCG in SYRINGE 9.5 ML IV SCH (16:00)
[2024-05-10] MEDS ORDERED: DIGOXIN 0.125 MG TAB PO SCH (16:00)
--- NOTE | 2024-05-10 16:10 | Electrocardiogram Report ---
Test Reason : Blood Pressure : */* mmHG Vent. Rate : 71 BPM Atrial Rate : 71 BPM P-R Int : 200 ms QRS Dur : 120 ms QT Int : 392 ms P-R-T Axes : 28 0 205 degrees QTcB Int : 425 ms Poor data quality, interpretation may be adversely affected Normal sinus rhythm Incomplete left bundle block Abnormal ECG When compared with ECG of 10-May-2024 08:17, (unconfirmed) Significant changes have occurred Confirmed by Logan Uribe ([id number]) on 05/10/2024 4:09:36 PM Referred By: REFERRED SELF Confirmed By: Logan Uribe
--- NOTE | 2024-05-10 17:19 | XRay Report ---
Exam(s): XR CXR 1 VIEW EXAM: XR Chest, 1 View CLINICAL HISTORY: Reason for exam: SOB. TECHNIQUE: Frontal view of the chest. COMPARISON: 04/05/24 FINDINGS: Lungs: There is mild pulmonary vascular congestion. No consolidation. Pleural space: Unremarkable. No pneumothorax. Heart: Moderate cardiomegaly. Mediastinum: Unremarkable. Normal mediastinal contour. Bones/joints: Unremarkable. No acute fracture. Tubes, lines and devices: Defibrillator lead seen projecting over the right ventricle. IMPRESSION: Mild pulmonary vascular congestion Electronically signed by: Dario Magaña MD 05/09/24 20:20 PM
--- NOTE | 2024-05-10 17:27 | Discharge Summary ---
Discharge Summary Date of Service May 10, 2024 Principal Dx & Hospital Course #1 = Principal Diagnosis (1) Cardiogenic shock: Pt was a rapid response, frothy pulmonary edema, required intubation, seems to be in a rapid regular heart rate, 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 Pryor (3) Controlled type 2 diabetes mellitus: Diabetes mellitus- Hold Jardiance and metformin Place on Accu-Cheks with NovoLog SSI (4) Psoriatic arthritis: long tern use of immunosupressant agent (5) Hyperlipidemia: (6) Anemia: Anemia-Hemoglobin 8.7 on admission, microcytic, confirmed low iron as outpt, unclear if work up performed as outpt On 04/05/2024 was 11.2 Hemoccult stools May be secondary to Xarelto Plan emergent transfer to [facility] Admission HPI Per Admitting Provider The patient is a 49-year-old male with past medical history including presence of ICD, history of cardioversion, hyperlipidemia, gout, dilated cardiomyopathy, atrial fibrillation, diabetes mellitus type 2, secondary hyperparathyroidism, psoriatic arthritis on Stelara, CHF, ventricular tachycardia with history of defibrillator discharge, and HF fibrillation with RVR. The patient presents to the emergency department for syncopal episode. His defibrillator pacemaker was interrogated in the emergency department. Patient received amiodarone 150 mg IV bolus, and then was started on amiodarone drip per protocol. He will be admitted to the PCU for continued monitoring, and seen by Cardiology in the a.m. Discharge Exam sedated and intubated tachycardic coarse pulmonary rales Discharge Plan Discharge Items Patient Disposition: Transfer Acute Care Hospital Reason For Visit: S/P DEBRILLATOR FIRING Discharge Diagnosis: cardiogenic shock Activity: Per Instructions section Non-emergency contact: Primary Care Provider and [employer] Officer Call non-emergency contact if: your symptoms worsen Follow-up/Referrals: Samanta Jung MD [Primary Care Provider] - Diet: Nothing by Mouth Addtl Attending Provider Instructions: acute care transfer secondary to cardiogenic shock Pending Studies at Discharge: Yes Stand-Alone Forms: My [facility] Skilled Items Patient informed of condition?: No DNR: No Discharge Level of Care: Other Communicable Disease: No Discharge Prognosis: Deteriorating Lines: Peripheral IV and Mid-Line Urinary Catheter: Yes Medications and DC Order Prescriptions: Continued digoxin 125 mcg tablet 125 mcg PO QAM Discontinued metformin 500 mg tablet 1,000 mg PO BID 90 Days Qty: 360 1RF metoprolol succinate 25 mg tablet extended release 24 hr 25 mg PO BID Qty: 180 1RF furosemide 40 mg tablet 40 mg PO BID Rx Instructions: Taken at 0700 and 1900 spironolactone 25 mg tablet 25 mg PO QAM rivaroxaban 20 mg tablet 20 mg PO HS potassium chloride 10 mEq tablet,ER particles/crystals 10 meq PO BID cyanocobalamin (vitamin B-12) [Vitamin B-12] 1,000 mcg Tablet 1,000 mcg PO QAM allopurinol 300 mg tablet 300 mg PO QAM Stelara 90 mg/mL syringe 90 mg SUBCUT UD Rx Instructions: Every 12 weeks cholecalciferol (vitamin D3) [Vitamin D3] 25 mcg (1,000 unit) tablet 5,000 unit PO QAM amiodarone 200 mg tablet 200 mg PO BID Qty: 1 0RF rosuvastatin 10 mg tablet 10 mg PO HS Jardiance 25 mg tablet 25 mg PO QAM Rx Instructions: PER DR 1ST magnesium oxide 400 mg magnesium tablet 400 mg PO QAM Entresto 49-51 mg tablet 1 tab PO BID No Action (DME) blood-glucose meter [OneTouch Verio Flex Start] Kit See Rx Instructions .ROUTE .MEDSUPPLY Qty: 1 0RF Rx Instructions: use to test 1 time daily (DME) lancets 33 gauge misc See Rx Instructions .ROUTE .MEDSUPPLY Qty: 100 3RF Rx Instructions: test blood sugar once daily. E11.9 (DME) OneTouch Verio test strips Strip See Rx Instructions .ROUTE .MEDSUPPLY Qty: 100 3RF Dose Instruction: As directed Rx Instructions: Test blood sugar once daily Discharge Orders: Discharge Order (Routine); Ordered 05/10/24 Ordered By: Bijan Luis Admission Data Admit Date/Time: 05/09/24 21:38 Attending Provider: Bijan Luis Admit Provider: Juanito Morales Primary Care Provider: Samanta Jung Other Providers: Juanito Morales; Bijan Pryor Other Interventions: Discharge Summary Assessment (RN) Last Done: 05/10/24 15:28 Hospital Stay Data Consultations 05/09/24 20:29 ED Decision to Admit Stat 05/09/24 23:09 Consult Cardiology Routine Diagnostic Imagining Performed 05/10/24 11:54 sono, invasive monitoring [US point of care ultrasound] Urgent Pending Results Patient Have Any Pending Studies at Discharge: Yes Discharge Instructions Given to Patient (Per Discharging Provider) acute care transfer secondary to cardiogenic shock Total Time Total Time Spent Total Time Spent (In Minutes): It required greater than 30 minutes to prepare this patient for discharge. Coding Level of Care Code 07236 INP/OBS DISCH >30 MIN Diagnoses Cardiogenic shock R57.0 Syncope and collapse R55 Controlled type 2 diabetes mellitus E11.9 Psoriatic arthritis L40.50 Hyperlipidemia E78.5 Anemia D64.9 Anemia type: unspecified type
[2024-05-10] MEDS ORDERED: ROSUVASTATIN CALCIUM 10 MG TAB PO SCH (21:00)
--- NOTE | 2024-05-11 15:28 | Electrocardiogram Report ---
Test Reason : Blood Pressure : */* mmHG Vent. Rate : 129 BPM Atrial Rate : 129 BPM P-R Int : 144 ms QRS Dur : 148 ms QT Int : 352 ms P-R-T Axes : * -26 86 degrees QTcB Int : 515 ms Poor data quality, interpretation may be adversely affected Sinus tachycardia Left bundle branch block Abnormal ECG When compared with ECG of 10-May-2024 04:48, AR interval has decreased Vent. rate has increased by 54 bpm QRS duration has increased Nonspecific T wave abnormality no longer evident in Inferior leads Confirmed by Logan Uribe ([id number]) on 05/11/2024 3:28:43 PM Referred By: REFERRED SELF Confirmed By: Logan Uribe
== END 2024-05-10 14:45 | disposition short-term general hospital (02) | DRG 280 ==
LOC: ED 19:01 → SUATTDRO 21:38 → 2S 21:38 → 1E 05-10 08:38